=== PATIENT | female | born 1960 | race Caucasian/White ===

== ENCOUNTER → 2017-10-10 15:29 | Outpatient (CLI) | payer BC, SELFPAY ==
[2017-10-10 16:52] LABS: Anion Gap 9.8 mEq/L (5-15); Blood Urea Nitrogen 8 mg/dL (7-18); Carbon Dioxide 29 mmol/L (21.0-32.0); Chloride 107 mmol/L (98-107); Creatinine,Serum 0.85 mg/dL (0.55-1.02); Estimated Glomerular Filt Rate 69 ml/min (>60); GFR (African American) 83 ML/MIN (>60); Glucose 99 mg/dL (74-106); Potassium 3.8 mmoL/L (3.5-5.1); Sodium 142 mmol/L (136-145)
== END ==
PROVIDERS: Visit Provider Internal Medicine Cardiovascular Disease
DX: R60.9 Edema, unspecified (principal); G47.33 Obstructive sleep apnea (adult) (pediatric); I50.30 Unspecified diastolic (congestive) heart failure; I10 Essential (primary) hypertension; I25.10 Atherosclerotic heart disease of native coronary artery without angina pectoris; R00.0 Tachycardia, unspecified
CPT/HCPCS: 36415; 80048; 83880

== ENCOUNTER → 2017-10-14 10:01 | Outpatient (POV) | payer BC, SELFPAY | PROVIDERS: Visit Provider Nurse Practitioner Acute Care | DX: Z00.00 Encounter for general adult medical examination without abnormal findings (principal) ==

== ENCOUNTER → 2017-10-16 09:11 | Outpatient (CLI) | payer BC, SELFPAY ==
--- NOTE | 2017-10-16 | FL_ITS ---
EXAM: Barium swallow/esophagram. FL barium swallow modified: 10/16/2017 12:00 AM CLINICAL HISTORY: Dysphasia ORDERING PHYSICIAN: Ezio Castillo MD PATIENT AGE: 57 years COMPARISON: TECHNIQUE: Patient administered varying consistencies of barium contrast, while viewed in lateral position under real-time fluoroscopy with cine recording. FLUOROSCOPY TIME: 2 minutes and 18 seconds The study was performed in conjunction with speech pathologist. Please see that report & recommendations. FINDINGS: Patient was given varying consistencies of barium. This consisted of then liquid with cup and straw. Pureed, barium tablet, pudding, mixed. There was no evidence of vestibular penetration or tracheal aspiration. Small anterior osteophytes noted at C4-C5 and C6-C7 with some minimal indentation upon the posterior aspect of the esophagus. Patient did have a prominent gag reflex with the peel IMPRESSION: As above, no aspiration or penetration. Please see speech pathologist report and recommendations.
--- NOTE | 2017-10-16 09:21 | CT_ITS ---
CT chest wo con HISTORY: ITS.REASON: SHORTNESS OF BREATH,RECURRENT PNEUMONIA ORDERING PHYSICIAN: Ezio Castillo MD PATIENT AGE: 57 years TECHNIQUE: Axial images obtained. Sagittal and coronal reformatted images are also generated and reviewed. CONTRAST: None COMPARISON: 12/09/2015 FINDINGS: There is mild cardiomegaly with coronary artery calcification noted. No obvious pericardial effusion. Scattered small nodes are present within the mediastinum. No obvious mediastinal or hilar mass. There is a noncalcified 5 mm nodule in the right upper lobe laterally unchanged. 3 mm nodule also present in the right upper lobe probably unchanged. Patchy groundglass density is present in the left upper lobe medially nonspecific. No lobar consolidation or collapse. No central obstructing lesions. There is a calcified granuloma in the right lung base posteriorly and medially. Scattered small lymph nodes are present in the axilla. Upper abdominal images show no acute finding. No acute bony anomalies. IMPRESSION: 1. No acute finding. 2. Cardiomegaly. 3. Stable 5 and 3 mm right upper lobe nodules
--- NOTE | 2017-10-16 10:24 | MM_ITS ---
MM Dig screening mamm BI w/CAD CAD Screening ORDERING PHYSICIAN : Ezio Castillo MD PATIENT AGE: 57 years GENDER: Female COMPARISON: Previous mammograms: August 2016, September 2014, May 2010 INDICATION: Routine screening. Takes estradiol. Previous stereotactic biopsy left breast Family history. Grandmother with breast cancer TECHNIQUE: Standard CC and MLO images were obtained. R2 CAD reviewed. FINDINGS: Generalized fatty replacement yield Low-density breast. Which Facilitates mammography. No dominant mass nor suspicious calcifications in either breast. No architectural distortion RIGHT BREAST:. Stable with No areas of concern. LEFT BREAST:Metallic marker clip from previous stereotactic biopsy central left breast IMPRESSION: ........ Stable bilateral mammogram with no new areas of concern . routine follow-up BI-RADS Category: 1 Negative RECOMMENDED FOLLOW-UP: 1YR - 1 YEAR FOLLOW-UP (A letter has been sent to the patient regarding results of the study.)
[2017-10-16 14:11] VITALS: PULSE 52; PULSE 58
[2017-10-16 14:14] VITALS: BP 120/78; BP 130/84; PULSE 58; PULSE 76; RESP 18; RESP 24; O2SAT 88; O2SAT 93
== END ==
PROVIDERS: Visit Provider Internal Medicine
DX: Z12.31 Encounter for screening mammogram for malignant neoplasm of breast (principal); R06.02 Shortness of breath; J18.9 Pneumonia, unspecified organism; R13.10 Dysphagia, unspecified
CPT/HCPCS: 70371; 71250; 77067; 92611; 94060; 94618; 94640; 94727; 94729

== ENCOUNTER → 2017-10-16 12:21 | Outpatient (CLI) | payer BC, SELFPAY ==
[2017-10-16 13:52] LABS: Anion Gap 10.3 mEq/L (5-15); Blood Urea Nitrogen 10 mg/dL (7-18); Carbon Dioxide 27 mmol/L (21.0-32.0); Chloride 106 mmol/L (98-107); Creatinine,Serum 0.75 mg/dL (0.55-1.02); Estimated Glomerular Filt Rate 80 ml/min (>60); GFR (African American) 96 ML/MIN (>60); Glucose 97 mg/dL (74-106); Magnesium 1.9 mg/dL (1.4-2.2); Potassium 4.3 mmoL/L (3.5-5.1); Sodium 139 mmol/L (136-145)
== END ==
PROVIDERS: Internal Medicine; Visit Provider Physician Assistant
DX: I25.10 Atherosclerotic heart disease of native coronary artery without angina pectoris (principal); I50.30 Unspecified diastolic (congestive) heart failure; R06.02 Shortness of breath; R60.9 Edema, unspecified
CPT/HCPCS: 36415; 80048; 83735; 83880

== ENCOUNTER → 2017-10-29 07:34 | Outpatient (CLI) | payer BC, SELFPAY ==
[2017-10-29 08:50] LABS: Blood Urea Nitrogen 12 mg/dL (7-18); Carbon Dioxide 28 mmol/L (21.0-32.0); Chloride 107 mmol/L (98-107); Creatinine,Serum 1.22 mg/dL (0.55-1.02); Estimated Glomerular Filt Rate 45 ml/min (>60); GFR (African American) 55 ML/MIN (>60); Glucose 90 mg/dL (74-106); Magnesium 1.8 mg/dL (1.4-2.2); Sodium 143 mmol/L (136-145)
== END ==
PROVIDERS: PCP Physician Assistant; Visit Provider Physician Assistant
DX: R60.0 Localized edema (principal); G47.33 Obstructive sleep apnea (adult) (pediatric); I51.9 Heart disease, unspecified; I25.10 Atherosclerotic heart disease of native coronary artery without angina pectoris; I10 Essential (primary) hypertension; I50.30 Unspecified diastolic (congestive) heart failure
CPT/HCPCS: 80048; 83735; 83880

== ENCOUNTER → 2017-11-27 09:37 | Outpatient (CLI) | payer BC, SELFPAY ==
[2017-11-27 10:04] LABS: Anion Gap 9.4 mEq/L (5-15); Blood Urea Nitrogen 13 mg/dL (7-18); Carbon Dioxide 29 mmol/L (21.0-32.0); Chloride 104 mmol/L (98-107); Creatinine,Serum 1.12 mg/dL (0.55-1.02); Estimated Glomerular Filt Rate 50 ml/min (>60); GFR (African American) 61 ML/MIN (>60); Glucose 90 mg/dL (74-106); Potassium 3.4 mmoL/L (3.5-5.1); Sodium 139 mmol/L (136-145)
== END ==
PROVIDERS: Physician Assistant; Visit Provider Internal Medicine
DX: R60.0 Localized edema (principal); G47.33 Obstructive sleep apnea (adult) (pediatric); I51.9 Heart disease, unspecified; I25.10 Atherosclerotic heart disease of native coronary artery without angina pectoris; I10 Essential (primary) hypertension
CPT/HCPCS: 36415; 80048; 83880

== ENCOUNTER 2017-12-11 11:03 | Emergency (ER) | payer BC, SELFPAY ==
[2017-12-11 11:04] VITALS: BP 144/62; PULSE 69; RESP 20; TEMP 36.5; O2SAT 94; BMI 38.7
--- NOTE | 2017-12-11 11:19 | XR_ITS ---
XR chest 2V HISTORY: ITS.REASON: CHEST PAIN ORDERING PHYSICIAN: Adria Gillis MD PATIENT AGE: 57 years COMPARISON: 08/29/2017 FINDINGS: Mild cardiomegaly noted. There is interstitial thickening suggesting CHF with interstitial edema. Pulmonary vessels are not significantly engorged however. No effusions. No lobar consolidation or collapse. No acute bony anomalies. IMPRESSION: Cardiomegaly with prominence of the interstitium suggesting CHF
--- NOTE | 2017-12-11 11:21 | HMH.EDGENADL ---
ED Disposition Clinical Impression: CHF (congestive heart failure) Qualifiers: Heart failure type: diastolic Heart failure chronicity: acute on chronic Qualified Code(s): I50.33 - Acute on chronic diastolic (congestive) heart failure Disposition: Home, Self-Care Condition on Discharge: Good Instructions: DI for Atypical Chest Pain, DI for Heart Failure Additional Instructions: Increase Spironolactone to 50 mg a day for 3 days. Increase losartan to 50 mg twice a day. Follow-up with Dr. PHAM in the office next week as scheduled. Referrals: Zeke Chairez MD [Primary Care Provider] - - Critical Care Critical Care Time: No Attestation: On 12/11/17, the high probability of a clinically significant, sudden or life threatening deterioration of the following system(s) required my full and direct attention, intervention and personal management. The time I documented below is in addition to time spent performing reported procedures but includes the following listed in this critical care notation. Medical Decision Making - Adolph Inquiry Pt receiving controlled substance: No Vital Signs: 12/11/17 11:04 Temperature 97.7 F Temperature Source Oral Pulse Rate [Right Brachial] 69 Respiratory Rate 20 Blood Pressure [Right Arm] 144/62 Blood Pressure Mean [Right Arm] 89 Blood Pressure Source [Right Arm] Automatic Cuff Blood Pressure Position [Right Arm] Sitting 02 Sat by Pulse Oximetry 94 L Oxygen Delivery Method Room Air - Lab Data Lab Results 12/11/17 11:15: WBC 5.8, RBC 3.31 L, Hgb 10.1 L, Hct 32.0 L, MCV 96.8, MCH 30.5, MCHC 31.5 L, RDW 14.3, Plt Count 318, MPV 8.4, Neut % (Auto) 68.2, Lymph % (Auto) 24.8, [place] % (Auto) 4.0, Eos % (Auto) 2.6, Baso % (Auto) 0.4, Neut # (Auto) 4.0, Lymph # (Auto) 1.5, [place] # (Auto) 0.2, Eos # (Auto) 0.2, Baso # (Auto) 0.0 12/11/17 11:15: Sodium 140, Potassium 3.5, Chloride 104, Carbon Dioxide 27, Anion Gap 12.5, BUN 9, Creatinine 0.90, Estimated Creat Clear 112, Estimated GFR 65, Est GFR ( Amer) 78, Glucose 100, Calcium 8.4 L, Total Bilirubin 0.2, AST 24, ALT 26, Alkaline Phosphatase 88, Total Creatine Kinase 76, CK-MB (CK-2) 2.4, CK-MB (CK-2) Rel Index 3.2, Troponin I < 0.02, Total Protein 7.2, Albumin 3.2 L, Globulin 4.0 H, Albumin/Globulin Ratio 0.8 L 12/11/17 11:15: B-Natriuretic Peptide 394 H Result diagrams: 12/11/17 11:15 12/11/17 11:15 Orders (Tests/Meds): ED MEDICATIONS Discontinued Medications Generic Name Dose Route Start Last Admin Trade Name Freq PRN Reason Stop Dose Admin Aspirin 324 mg 12/11/17 11:19 12/11/17 11:23 Aspirin 81mg Chewable Tablet PO 12/11/17 11:20 324 mg ONCE ONE Administration Furosemide 80 mg 12/11/17 12:44 12/11/17 13:28 Lasix 40mg/4ml Vial IV 12/11/17 12:45 80 mg ONCE ONE Administration Ibuprofen 800 mg 12/11/17 12:41 12/11/17 13:27 Motrin 400mg Tablet PO 12/11/17 12:42 800 mg ONCE ONE Administration ORDERS Category Date Time Status ECG Request by /Maggi Stat Y 12/11/17 11:19 Stop Req - ECG Data Tracing #1 EKG interpreted by Adria Gillis MD: Rhythm: sinus Rate: 60 [place]: normal Ectopy: none Conduction: normal ST Segment Changes: none T Wave Changes: none Q Waves: none No evidence of acute ischemia or injury Normal electrocardiogram Medical Decision Narrative: 12:45 PM: Discussed with ALECIA Andrade, for Dr. Gore. He will see the patient in the emergency department. 3:28 PM: Patient seen by ALECIA Andrade, for Dr. Gore, and then reevaluated by him. The patient will be discharged his recommendation. He rents increasing around lactone to 50 mg per day for 3 days and increasing losartan to twice a day and follow-up next week as already scheduled. General Adult HPI - General Chief complaint: Chest Pain Stated complaint: CHEST PAIN Time Seen by Provider: 12/11/17 15:30 Mode of Arrival: Family Vehicle Limitations: No Limitations Description of
[2017-12-11 11:42] LABS: Basophils % 0.4 % (0.1-2.0); Eosinophils # 0.2 K/mm3 (0.0-0.4); Eosinophils % 2.6 % (0.1-12.0); Hemoglobin 10.1 g/dL (12.2-16.2); Lymphocytes # 1.5 K/mm3 (0.7-4.5); Lymphocytes % 24.8 K/mm3 (10-50); Mean Corpuscular HGB Conc 31.5 g/dL (31.8-35.4); Mean Corpuscular Hemoglobin 30.5 pg (27.0-31.2); Mean Corpuscular Volume 96.8 fl (81-99); Mean Platelet Volume 8.4 fl (7.4-10.4); Monocytes # 0.2 K/mm3 (0.1-1.0); Neutrophils % 68.2 % (37.0-80.0); Platelet Count 318 K/mm3 (142-424); Red Blood Count 3.31 M/mm3 (4.20-5.40); Red Cell Distribution Width 14.3 % (11.5-17.5); White Blood Count 5.8 K/mm3 (4.8-10.8)
[2017-12-11 12:00] LABS: Alanine Aminotransferase 26 U/L (12-78); Albumin Level 3.2 gm/dL (3.4-5.0); Albumin/Globulin Ratio 0.8 (1.1-1.8); Alkaline Phosphatase 88 U/L (46-116); Aspartate Amino Transferase 24 U/L (15-37); Bilirubin,Total 0.2 mg/dL (0.2-1.0); Blood Urea Nitrogen 9 mg/dL (7-18); CKMB Relative Index 3.2 U/L (0-4.0); Calcium 8.4 mg/dL (8.5-10.1); Carbon Dioxide 27 mmol/L (21.0-32.0); Creatine Kinase 76 U/L (26-192); Creatine Kinase MB 2.4 mg/ml (0.0-3.6); Creatinine Clearance Estimated 112 mL/min (0-300); Estimated Glomerular Filt Rate 65 ml/min (>60); GFR (African American) 78 ML/MIN (>60); Glucose 100 mg/dL (74-106); Total Protein,Serum 7.2 gm/dL (6.4-8.2); Troponin I < 0.02 ng/ml (0.00-0.06)
[2017-12-11 12:07] LABS: Chloride 104 mmol/L (98-107); Potassium 3.5 mmoL/L (3.5-5.1); Sodium 140 mmol/L (136-145)
[2017-12-11 13:03] LABS: Anion Gap 12.5 mEq/L (5-15)
--- NOTE | 2017-12-11 15:29 | HMH.CNCARD ---
History of Present Illness Consult date: 12/11/17 Consult reason: congestive heart failure, shortness of breath Chief complaint: SOA, Weight gain, edema Additional Medical History:: 1. Tobacco use since age 25, 1 ppd at least 2. IBS, diarrhea predominant, followed by GI 3. Chronic pancreatitis, previous workup by GI 4. HTN, treated for 5 yrs 5. Status post cholecystectomy, hysterectomy due to endometriosis and pelvic inflammatory disease 6. Chronic back pain with chronic pain medication 7. Hypothyroidism 8. Congestive heart failure, 05/2017 A. Right and left heart catheterization, 06/12/17, mild nonocclusive coronary artery disease. Mild pulmonary hypertension. No evidence of intra-cardiopulmonary shunt. Congestive heart failure felt secondary to diastolic dysfunction with improvement after 6 L diuresis overnight. History of present illness: 57-year-old white female with history of hypertension, obesity and diastolic dysfunction was seen in the emergency department today for increasing shortness of breath/chest tightness and weight gain along with lower extremity edema over the last several days. She has noted a decrease in her urine output despite taking 80 mg of Lasix daily along with 25 mg of spironolactone. She denies increase in fluids, soda use, ibuprofen or fast food intake. Evaluation in the emergency department revealed mildly elevated BNP at 158 but with chest x-ray evidence of congestive heart failure. Patient was given 80 of Lasix IV and cardiology consulted for evaluation. This is a similar situation that she was hospitalized for in May of last year which responded well to a single IV dose of Lasix. After evaluation, the patient diuresed over 800 mL and 2 hours and was noted to be less short of breath although somewhat tired. [facility] History Medical History: Reports:: Congestive Heart Failure, Coronary Artery Disease, Hypertension Denies:: Cancer, Diabetes Mellitus Type 1, Diabetes Mellitus Type 2, Internal Pacemaker, MRSA Other Medical History: Reports: Thyroid Disease Laterality Cases: Bilateral: Tonsillectomy Other Surgeries: Yes: Angioplasty, Colonoscopy, Hysterectomy-Total, Other. No: Pacemaker Amputation: No Fractures: No - *Social History Smoking Status: Former smoker Tobacco Type: cigarettes Alcohol Intake: never Alcohol Intake Frequency:: other Substance Use Type: denies use - Psychiatric History Expresses thoughts of harming self/others: None Suicide Plan Description: No Plan *Family Hx:: Heart Attack, Coronary Artery Disease, Hypertension, Cancer, Stroke Meds Home Medications Medication Instructions Recorded Confirmed Type albuterol sulfate HFA 90 1 puff INHALATION Q6H 10/09/17 History mcg/actuation aerosol inhaler aspirin 81 mg tablet,delayed 81 mg PO QDAY 10/09/17 History release bupropion HCl SR 150 mg tablet,12 150 mg PO BID 10/09/17 History hr sustained-release buspirone 10 mg tablet 10 mg PO BID 10/09/17 History estradiol 1 mg tablet 1 mg PO QDAY 10/09/17 History furosemide 40 mg tablet 40 mg PO BID tab 10/09/17 History hyoscyamine 0.125 mg sublingual 0.125 mg SUBLINGUAL QDAY PRN tab 10/09/17 History tablet levothyroxine 75 mcg tablet 75 mcg PO QDAY tab 10/09/17 History losartan 50 mg tablet 50 mg PO QDAY 10/09/17 History metoclopramide 5 mg tablet 5 mg PO QID 10/09/17 History metoprolol succinate ER 25 mg 25 mg PO QDAY 10/09/17 History tablet,extended release 24 hr omeprazole 40 mg capsule,delayed 40 mg PO QDAY 10/09/17 History release trazodone 50 mg tablet 50 mg PO QHS PRN 10/09/17 History buprenorphine 8 mg-naloxone 2 mg 1 tab SUBLINGUAL QDAY 10/16/17 History sublingual tablet dicyclomine 10 mg capsule 10 mg PO Q8H 10/16/17 History ondansetron HCl 4 mg tablet 8 mg PO Q4H PRN tab 10/16/17 History spironolactone 25 mg tablet 50 mg PO QDAY tab 10/18/17 History Allergies Allergy/AdvReac Type Severity Reaction Status Date / Time [facility]
[2017-12-11 15:53] VITALS: BP 135/81; PULSE 41; RESP 20; TEMP 36.6; O2SAT 99
== END 2017-12-11 15:55 | disposition home or self-care (01) ==
PROVIDERS: Emergency Provider Emergency Medicine; PCP Emergency Medicine
DX: R07.9 Chest pain, unspecified (principal); I50.33 Acute on chronic diastolic (congestive) heart failure; I25.10 Atherosclerotic heart disease of native coronary artery without angina pectoris; I10 Essential (primary) hypertension; Z88.1 Allergy status to other antibiotic agents; Z88.0 Allergy status to penicillin; Z88.2 Allergy status to sulfonamides; Z87.891 Personal history of nicotine dependence; Z79.82 Long term (current) use of aspirin; Z79.899 Other long term (current) drug therapy
CPT/HCPCS: 71046; 80053; 82550; 82553; 83880; 84484; 85025; 93005; 93041; 96374; 99282

== ENCOUNTER → 2017-12-19 11:45 | Outpatient (CLI) | payer BC, SELFPAY ==
[2017-12-19 12:21] LABS: Anion Gap 10.4 mEq/L (5-15); Blood Urea Nitrogen 16 mg/dL (7-18); Carbon Dioxide 35 mmol/L (21.0-32.0); Chloride 98 mmol/L (98-107); Creatinine,Serum 0.94 mg/dL (0.55-1.02); Estimated Glomerular Filt Rate 61 ml/min (>60); GFR (African American) 74 ML/MIN (>60); Glucose 112 mg/dL (74-106); Potassium 3.4 mmoL/L (3.5-5.1); Sodium 140 mmol/L (136-145)
== END ==
PROVIDERS: Visit Provider Internal Medicine
DX: I50.9 Heart failure, unspecified (principal); I10 Essential (primary) hypertension; I50.30 Unspecified diastolic (congestive) heart failure; R60.0 Localized edema; G47.33 Obstructive sleep apnea (adult) (pediatric)
CPT/HCPCS: 36415; 80048

== ENCOUNTER 2018-01-11 21:31 | Inpatient (IN) ==
[2018-01-11 22:25] LABS: Basophils % 0.1 % (0.1-2.0); Eosinophils # 0.1 K/mm3 (0.0-0.4); Eosinophils % 0.4 % (0.1-12.0); Hematocrit 32.4 % (37.0-47.0); Hemoglobin 10.2 g/dL (12.2-16.2); Lymphocytes # 1.1 K/mm3 (0.7-4.5); Lymphocytes % 4.8 K/mm3 (10-50); Mean Corpuscular HGB Conc 31.4 g/dL (31.8-35.4); Mean Corpuscular Hemoglobin 29.8 pg (27.0-31.2); Mean Corpuscular Volume 94.9 fl (81-99); Mean Platelet Volume 7.9 fl (7.4-10.4); Monocytes % 4.1 % (1.7-9.3); Neutrophils # 20.9 K/mm3 (1.8-7.8); Neutrophils % 90.5 % (37.0-80.0); Platelet Count 419 K/mm3 (142-424); Red Blood Count 3.41 M/mm3 (4.20-5.40); Red Cell Distribution Width 14.7 % (11.5-17.5)
[2018-01-11 22:30] LABS: White Blood Count 23.1 K/mm3 (4.8-10.8)
[2018-01-11 22:47] LABS: Creatine Kinase 169 U/L (26-192)
[2018-01-11 22:52] LABS: Albumin/Globulin Ratio 0.7 (1.1-1.8); Bilirubin,Total 0.8 mg/dL (0.2-1.0); Calcium 9.3 mg/dL (8.5-10.1); Globulin 4.4 gm/dl (1.3-3.2); Total Protein,Serum 7.4 gm/dL (6.4-8.2)
--- NOTE | 2018-01-11 22:52 | Emergency Department Note ---
ED Disposition Clinical Impression: Hypoxia CAP (community acquired pneumonia) Qualifiers: Laterality: unspecified laterality Qualified Code(s): J18.9 - Pneumonia, unspecified organism Disposition: Still a Patient Condition on Discharge: Fair - Critical Care Critical Care Time: No Attestation: On 01/11/18, the high probability of a clinically significant, sudden or life threatening deterioration of the following system(s) required my full and direct attention, intervention and personal management. The time I documented below is in addition to time spent performing reported procedures but includes the following listed in this critical care notation. Medical Decision Making - Adolph Inquiry Pt receiving controlled substance: No Vital Signs: 01/11/18 21:32 01/11/18 21:39 01/11/18 23:33 Temperature 100 F H Temperature Source Oral Pulse Rate [Right Brachial] 105 H 80 Respiratory Rate 18 18 Blood Pressure [Right Arm] 120/70 124/63 Blood Pressure Mean [Right Arm] 86 83 02 Sat by Pulse Oximetry 94 L 90 L 92 L Oxygen Delivery Method Room Air Room Air Nasal Cannula Oxygen Flow Rate (LPM) 2 3 - Lab Data Lab Results 01/11/18 21:50: Influenza Type A Ag Negative, Influenza Type B Ag Negative 01/11/18 21:50: Lactic Acid 2.2 H 01/11/18 21:55: Total Creatine Kinase 169, CK-MB (CK-2) 3.6 D, CK-MB (CK-2) Rel Index 2.1, Troponin I < 0.02 01/11/18 21:55: WBC 23.1 H*, RBC 3.41 L, Hgb 10.2 L, Hct 32.4 L, MCV 94.9, MCH 29.8, MCHC 31.4 L, RDW 14.7, Plt Count 419, MPV 7.9, Neut % (Auto) 90.5 H, Lymph % (Auto) 4.8 L, [place] % (Auto) 4.1, Eos % (Auto) 0.4, Baso % (Auto) 0.1, Neut # (Auto) 20.9 H, Lymph # (Auto) 1.1, [place] # (Auto) 1.0, Eos # (Auto) 0.1, Baso # (Auto) 0.0, Total Counted 100, Neutrophils % (Manual) 83 H, Band Neutrophils % 9.0 H, Lymphocytes % (Manual) 8 L, Platelet Estimate Normal, Polychromasia 1+, Hypochromasia 1+, Macrocytosis 1+ 01/11/18 21:55: Sodium 140, Potassium 3.0 L, Chloride 104, Carbon Dioxide 25, Anion Gap 14.0, BUN 13, Creatinine 1.09 H, Estimated Creat Clear 96, Estimated GFR 52 L, Est GFR ( Amer) 63, Glucose 142 H, Calcium 9.3, Total Bilirubin 0.8, AST 100 H, ALT 61, Alkaline Phosphatase 162 H, Total Protein 7.4 , Albumin 3.0 L, Globulin 4.4 H, Albumin/Globulin Ratio 0.7 L 01/11/18 21:55: B-Natriuretic Peptide 174 H Result diagrams: 01/11/18 21:55 01/11/18 21:55 Orders (Tests/Meds): ED MEDICATIONS Generic Name Dose Route Start Last Admin Trade Name Freq PRN Reason Stop Dose Admin Levofloxacin/Dextrose 750 mg in 150 mls @ 100 mls/hr 01/11/18 23:30 01/11/18 23:39 Levofloxacin 750mg/150ml Premix IV 01/25/18 23:29 100 mls/hr Q24H LEN Administration Protocol Discontinued Medications Generic Name Dose Route Start Last Admin Trade Name Freq PRN Reason Stop Dose Admin Acetaminophen 650 mg 01/11/18 23:06 01/11/18 23:11 Acetaminophen 325mg Tab PO 01/11/18 23:07 650 mg ONCE ONE Administration Potassium Chloride 60 meq 01/11/18 22:54 01/11/18 23:11 Klor-Con 20meq Tablet PO 01/11/18 22:55 60 meq ONCE ONE Administration ORDERS Category Date Time Status Chest XR 2 view (NOT portable) [XR chest 2V] Stat Exams 01/11/18 22:35 Taken Upper Respiratory Panel, PCR Stat Lab 01/11/18 22:42 Ordered Blood Culture Stat Micro 01/11/18 21:55 Received 12-lead EKG Request [ECG Request by /Maggi] Stat Y 01/11/18 21:52 Ordered - Radiology Data #1 Image(s): Chest Image Reviewed: Yes I reviewed the patient's radiology image Bilateral patchy airspace disease - ECG Data Tracing #1 EKG interpreted by Adria Gillis MD: Rhythm: sinus Rate: 99 [place]: normal Ectopy: none Conduction: normal ST Segment Changes: Nonspecific T Wave Changes: Nonspecific Q Waves: Inferior No evidence of acute ischemia or injury Prior electrocardiagrams reviewed. No change from prior tracings. Medical Decision Narrative: 11:15 PM: I have discussed the case with Dr. Khan for Dr. Chairez who agrees to admit the patient to the hospital. We discussed the patient's clinical information, including history, exam, laboratory and radiology results and ED course. Per hospital procedure, I will write temporary bridge inpatient orders on the patient. Specific orders requested by the admitting physician: The patient has numerous antibiotic allergies and sensitivities. We discussed all of her reactions. He feels the best choices Levaquin. She reportedly has hallucinations to this but not an actual allergic reaction. I discussed this with the patient and she is agreeable. Continue current medications. Do not diurese or administer fluids at this point. General Adult HPI - General Chief complaint: Shortness of Breath/Dyspnea Stated complaint: sob Time Seen by Provider: 01/11/18 22:51 Mode of Arrival: Ambulatory Limitations: No Limitations Description of Symptoms (Recalled from ER Triage Doc. by RN): SOA, 6LB weight gain over night,and pain with deep breathing, overall weak - History of Present Illness HPI narrative: The patient says she has not felt well all week. She has increasing shortness of breath and dyspnea on exertion. She has a cough producing yellow sputum. She has increased swelling and weight gain of 6 pounds. She has decreased urination. History of congestive heart failure. Currently her father is in the emergency room with pneumonia. - Related Data Home Medications Medication Instructions Recorded Confirmed albuterol sulfate HFA 90 1 puff INHALATION Q6H 10/09/17 01/11/18 mcg/actuation aerosol inhaler aspirin 81 mg tablet,delayed 81 mg PO QDAY 10/09/17 01/11/18 release estradiol 1 mg tablet 1 mg PO QDAY 10/09/17 01/11/18 furosemide 40 mg tablet 40 mg PO BID tab 10/09/17 01/11/18 hyoscyamine 0.125 mg sublingual 0.125 mg SUBLINGUAL QDAY PRN tab 10/09/17 tablet levothyroxine 75 mcg tablet 75 mcg PO QDAY tab 10/09/17 losartan 50 mg tablet 50 mg PO QDAY 10/09/17 01/11/18 metoclopramide 5 mg tablet 5 mg PO QID 10/09/17 01/11/18 omeprazole 40 mg capsule,delayed 40 mg PO QDAY 10/09/17 01/11/18 release trazodone 50 mg tablet 50 mg PO QHS PRN 10/09/17 01/11/18 dicyclomine 10 mg capsule 10 mg PO Q8H 10/16/17 ondansetron HCl 4 mg tablet 8 mg PO Q4H PRN tab 10/16/17 01/11/18 Gabapentin [Neurontin 600mg 600 mg PO QID 01/11/18 01/11/18 tablet] Metoprolol Succinate 25 mg PO DAILY 01/11/18 01/11/18 Potassium Chloride [Micro-K 10mEq 10 meq PO DAILY 01/11/18 01/11/18 cap] Spironolactone [Aldactone 50mg Tab] 50 mg PO QDAY 01/11/18 01/11/18 metOLazone [Metolazone 5mg Tab] 2.5 mg PO QDAY 01/11/18 01/11/18 Previous Rx's Medication Instructions Recorded meclizine 12.5 mg tablet 12.5 mg PO QHS PRN #14 tab 12/05/17 Allergies Allergy/AdvReac Type Severity Reaction Status Date / Time azithromycin [From ZITHROMAX] Allergy Unknown SEVERE Verified 11/15/17 12:48 DIARRHEA/VOMITING erythromycin base Allergy Unknown Verified 11/15/17 12:48 [ERYTHROMYCIN BASE] levofloxacin [From LEVAQUIN] Allergy Unknown HALLUCINATI Verified 11/15/17 12:48 ONS minocycline [MINOCYCLINE] Allergy Unknown SEVER Verified 11/15/17 12:48 DIARRHEA/VOMITING Penicillins [PENICILLINS] Allergy Unknown HAM BAUTISTA Verified 11/15/17 12:48 Sulfa (Sulfonamide Allergy Unknown I-HIVES Verified 11/15/17 12:48 Antibiotics) [SULFA (SULFONAMIDE ANTIBIOTICS)] Cephalosporins Allergy Mild TROUBLE Uncoded 10/16/17 11:57 BREATHING [facility] History I have reviewed the patient's past medical history: Yes Medical History: Reports:: Congestive Heart Failure, Coronary Artery Disease, Hypertension Denies:: Cancer, Diabetes Mellitus Type 1, Diabetes Mellitus Type 2, Internal Pacemaker, MRSA Other Medical History: Reports: Thyroid Disease Comment: IBS,anxiety,buldging disk Laterality Cases: Bilateral: Tonsillectomy Other Surgeries: Yes: Angioplasty, Colonoscopy, Hysterectomy-Total, Other. No: Pacemaker Amputation: No Fractures: No - Social History Smoking Status: Current every day smoker Tobacco Type: cigarettes Alcohol Intake: never Alcohol Intake Frequency:: other Substance Use Type: denies use - Psychiatric History Expresses thoughts of harming self/others: None Suicide Plan Description: No Plan Family Hx:: Heart Attack, Coronary Artery Disease, Hypertension, Cancer, Stroke ROS Obtained: Yes All systems reviewed & no additional complaints - Constitutional Constitutional: Reports fever(s), Reports weight gain - ENT Ears, Nose, Mouth, and Throat: Denies sore throat - Cardiovascular Cardiovascular: Reports chest pain, Reports leg edema - Respiratory Respiratory: Yes cough, Yes dyspnea, No coughing up blood Physical Exam - General General appearance: alert, in no apparent distress - Head Head exam: atraumatic, normocephalic, normal inspection - Eye Eye exam: Present: normal appearance, PERRL, EOMI - ENT ENT exam: Present: normal exam, normal oropharynx, mucous membranes moist, TM's normal bilaterally, normal external ear exam - Neck Neck exam: Present: normal inspection, full ROM, trachea midline. Absent: meningismus, lymphadenopathy - Chest Chest inspection: Present: normal inspection, symmetric chest wall rise. Absent : tenderness - Respiratory Respiratory exam: Present: normal lung sounds bilaterally. Absent: respiratory distress - Cardiovascular Cardiovascular exam: Present: regular rate, normal rhythm. Absent: JVD - Abdominal Exam Abdominal exam: Present: soft, normal bowel sounds. Absent: distention, tenderness, guarding - Extremities Exam Extremities exam: Present: normal inspection, full ROM, normal capillary refill , pedal edema (2+ pitting edema of legs). Absent: calf tenderness - Back Exam Back exam: Present: normal inspection. Absent: tenderness - Neurological Exam Neurological exam: Present: alert, oriented X3 - Psychiatric Psychiatric exam: Present: normal affect, normal mood - Skin Skin exam: Present: warm, dry, intact, normal color - Lymphatic Lymphatic Findings: no adenopathy
[2018-01-11 22:57] LABS: Microscopic, Urine URINE MICROSCOPIC (MICROSCOPIC)
[2018-01-11 22:59] LABS: Appearance,Urine CLEAR (Clear); Bilirubin,Urine Negative (Negative); Blood, Urine Negative (Negative); Color,Urine YELLOW (Yellow); Glucose,Urine (UA) Negative (Negative); Ketones,Urine Negative (Negative); Leukocyte Esterase,Urine Negative (Negative); Protein,Urine Negative (Negative); Urobilinogen,Urine 0.2 EU/dl (0.2)
[2018-01-11 23:03] LABS: Amorphous Sediment,Urine Trace /lpf
[2018-01-11 23:07] LABS: Lymphocytes % 8 % (10-50); Neutrophils % 83 % (42-76); Total Cells Counted 100
[2018-01-11 23:08] LABS: Hypochromasia 1+; Macrocytosis 1+; Polychromasia 1+
[2018-01-12 06:49] LABS: Basophils % 0.2 % (0.1-2.0); Eosinophils # 0.2 K/mm3 (0.0-0.4); Hematocrit 33.2 % (37.0-47.0); Hemoglobin 10.5 g/dL (12.2-16.2); Lymphocytes # 1.9 K/mm3 (0.7-4.5); Lymphocytes % 9.6 K/mm3 (10-50); Mean Corpuscular HGB Conc 31.7 g/dL (31.8-35.4); Mean Corpuscular Hemoglobin 30.2 pg (27.0-31.2); Mean Corpuscular Volume 95.4 fl (81-99); Mean Platelet Volume 8.1 fl (7.4-10.4); Monocytes # 0.8 K/mm3 (0.1-1.0); Monocytes % 3.9 % (1.7-9.3); Neutrophils % 85.3 % (37.0-80.0); Platelet Count 417 K/mm3 (142-424); Red Blood Count 3.48 M/mm3 (4.20-5.40); Red Cell Distribution Width 14.5 % (11.5-17.5)
[2018-01-12 07:26] LABS: Anion Gap 13.4 mEq/L (5-15); Potassium 3.4 mmoL/L (3.5-5.1)
[2018-01-12 07:28] LABS: Hypochromasia 1+; Lymphocytes % 13 % (10-50); Monocytes % 3 % (2-9); Neutrophils % 77 % (42-76); Polychromasia 1+; Rouleaux 2+; Total Cells Counted 100
--- NOTE | 2018-01-12 10:11 | Pharmacy Consult Notes ---
[facility] Pharmacy VTE Monitoring - Patient Demographics Admission date: 01/11/18 Report Date: 01/12/18 Time: 10:11 Allergies/Adverse Reactions: Patient Allergies azithromycin [From ZITHROMAX] Allergy (Unknown, Verified 11/15/17 12:48) SEVERE DIARRHEA/VOMITING erythromycin base [ERYTHROMYCIN BASE] Allergy (Unknown, Verified 11/15/17 12:48) levofloxacin [From LEVAQUIN] Allergy (Unknown, Verified 11/15/17 12:48) HALLUCINATIONS minocycline [MINOCYCLINE] Allergy (Unknown, Verified 11/15/17 12:48) SEVER DIARRHEA/VOMITING Penicillins [PENICILLINS] Allergy (Unknown, Verified 11/15/17 12:48) HAM BAUTISTA Sulfa (Sulfonamide Antibiotics) [SULFA (SULFONAMIDE ANTIBIOTICS)] Allergy ( Unknown, Verified 11/15/17 12:48) I-HIVES Cephalosporins Allergy (Mild, Uncoded 10/16/17 11:57) TROUBLE BREATHING Height: 1.63 m Weight: 99.79 kg Patient Problems: Current Active Problems CAP (community acquired pneumonia) (Acute) Hypoxia (Acute) - VTE Risk Labs: VTE Related Lab Results Hgb 10.5 g/dL (12.2-16.2) L 01/12/18 06:10 Hct 33.2 % (37.0-47.0) L 01/12/18 06:10 Plt Count 417 K/mm3 (142-424) 01/12/18 06:10 BUN 10 mg/dL (7-18) 01/12/18 06:10 Creatinine 0.86 mg/dL (0.55-1.02) D 01/12/18 06:10 Estimated Creat Clear 114 mL/min (0-300) 01/12/18 06:10 VTE Score: 10 VTE Risk Level: Moderate Risk - Prophylaxis VTE Prophylaxis Ordered?: Yes Types of VTE Prophylaxis: TEDS Knee High Location of Applied Device: Bilateral Lower Extremeties - VTE Diagnosis Confirmed Treatment or plan recommended: Continue Current Treatment
--- NOTE | 2018-01-12 11:22 | History & Physical Report ---
*Admission Date: 01/11/18 *Chief complaint: sob *History of present illness: 57-year-old female presented to the ER with complaints of says she has not felt well all week. She has increasing shortness of breath and dyspnea on exertion. a cough producing yellow sputum. She has increased edema and weight gain of 6 pounds. She has decreased urination. History of congestive heart failure. Last echo per patient was 4-5 months ago patient is a smoker. Patient admitted for pneumonia and mild CHF. Will have cardiology consult and continue antibiotics [facility] History I have reviewed the patient's past medical history: Yes Medical History: Reports:: Congestive Heart Failure, Coronary Artery Disease, Hypertension, MRSA Denies:: Cancer, Diabetes Mellitus Type 1, Diabetes Mellitus Type 2, Internal Pacemaker Other Medical History: Reports: Thyroid Disease Laterality Cases: Bilateral: Tonsillectomy Other Surgeries: Yes: Angioplasty, Cholecystectomy, Colonoscopy, Dilation and Curettage, Hysterectomy-Total, Other. No: Pacemaker Amputation: No Fractures: No - *Social History Educational Level: Completed College Smoking Status: Current every day smoker Tobacco Type: cigarettes Alcohol Intake: former Alcohol Intake Frequency:: other Substance Use Type: denies use Occupational Status: employed Household Members: family - Psychiatric History Expresses thoughts of harming self/others: None Suicide Plan Description: No Plan *Family Hx:: Heart Attack, Coronary Artery Disease, Hypertension, Cancer, Stroke Review of Systems - Constitutional Reports body ache(s), Reports chills, Reports weakness, Reports weight gain - Eyes Denies change in vision - ENT Denies change in voice - *Cardiovascular Reports shortness of breath, Denies chest pain at rest - *Respiratory Reports change in phlegm color, Reports chest congestion, Reports cough, Reports shortness of breath, Reports shortness of breath with activity, Reports excessive phlegm production - *Gastrointestinal Denies change in bowel habits - *Genitourinary Reports other, Denies absent period, Denies difficulty starting urination - *Musculoskeletal Reports body aches, Denies decreased muscle mass - Integumentary/Breasts Denies change in hair - *Neurologic Denies abnormal movements - Psychiatric Denies anxiety, Denies panic attacks - Endocrine Denies heat intolerance - Hematologic/Lymphatic Denies enlarged lymph nodes - Allergic/Immunologic Denies lip swelling Meds Home Medications Medication Instructions Recorded Confirmed Type aspirin 81 mg tablet,delayed 81 mg PO DAILY 10/09/17 01/12/18 History release estradiol 1 mg tablet 1 mg PO DAILY 10/09/17 01/12/18 History furosemide 40 mg tablet 40 mg PO BID tab 10/09/17 01/11/18 History hyoscyamine 0.125 mg sublingual 0.125 mg SUBLINGUAL DAILYP PRN tab 10/09/17 History tablet levothyroxine 75 mcg tablet 75 mcg PO DAILY tab 10/09/17 01/12/18 History losartan 50 mg tablet 50 mg PO DAILY 10/09/17 01/12/18 History metoclopramide 5 mg tablet 5 mg PO QID 10/09/17 01/12/18 History omeprazole 40 mg capsule,delayed 40 mg PO DAILY 10/09/17 01/12/18 History release trazodone 50 mg tablet 50 mg PO HSP PRN 10/09/17 01/12/18 History dicyclomine 10 mg capsule 10 mg PO NEEDED PRN 10/16/17 01/12/18 History ondansetron HCl 4 mg tablet 8 mg PO Q4HP PRN tab 10/16/17 01/12/18 History Gabapentin [Neurontin 600mg 600 mg PO QID 01/11/18 01/11/18 History tablet] Metoprolol Succinate 25 mg PO DAILY 01/11/18 01/11/18 History Potassium Chloride [Micro-K 10mEq 10 meq PO DAILY 01/11/18 01/12/18 History cap] Spironolactone [Aldactone 50mg Tab] 50 mg PO DAILY 01/11/18 01/12/18 History metOLazone [Metolazone 5mg Tab] 2.5 mg PO DAILY 01/11/18 01/12/18 History Allergies Allergy/AdvReac Type Severity Reaction Status Date / Time azithromycin [From ZITHROMAX] Allergy Unknown SEVERE Verified 11/15/17 12:48 DIARRHEA/VOMITING erythromycin base Allergy Unknown Verified 11/15/17 12:48 [ERYTHROMYCIN BASE] levofloxacin [From LEVAQUIN] Allergy Unknown HALLUCINATI Verified 11/15/17 12:48 ONS minocycline [MINOCYCLINE] Allergy Unknown SEVER Verified 11/15/17 12:48 DIARRHEA/VOMITING Penicillins [PENICILLINS] Allergy Unknown HAM BAUTISTA Verified 11/15/17 12:48 Sulfa (Sulfonamide Allergy Unknown I-HIVES Verified 11/15/17 12:48 Antibiotics) [SULFA (SULFONAMIDE ANTIBIOTICS)] Cephalosporins Allergy Mild TROUBLE Uncoded 10/16/17 11:57 BREATHING Exam Vital signs and Labs for Last 24 Hours: Temp Pulse Resp BP Pulse Ox 98.8 F 83 20 115/51 92 L 01/12/18 07:43 01/12/18 07:43 01/12/18 07:43 01/12/18 07:43 01/12/18 07:43 Laboratory Results - last 24 hr 01/12/18 02:05: Lactic Acid Fup @ 4Hr 1.2 01/12/18 06:10: WBC 20.0 H, RBC 3.48 L, Hgb 10.5 L, Hct 33.2 L, MCV 95.4, MCH 30.2, MCHC 31.7 L, RDW 14.5, Plt Count 417, MPV 8.1, Neut % (Auto) 85.3 H, Lymph % (Auto) 9.6 L, Hand % (Auto) 3.9, Eos % (Auto) 1.0, Baso % (Auto) 0.2, Neut # (Auto) 17.0 H, Lymph # (Auto) 1.9, Hand # (Auto) 0.8, Eos # (Auto) 0.2, Baso # (Auto) 0.0, Total Counted 100, Neutrophils % (Manual) 77 H, Band Neutrophils % 7.0, Lymphocytes % (Manual) 13, Monocytes % (Manual) 3, Platelet Estimate Normal, Polychromasia 1+, Hypochromasia 1+, Poikilocytosis 1+, Rouleaux 2+ 01/12/18 06:10: Sodium 140, Potassium 3.4 L, Chloride 102, Carbon Dioxide 28, Anion Gap 13.4, BUN 10, Creatinine 0.86 D, Estimated Creat Clear 114, Estimated GFR 68, Est GFR ( Amer) 82 D, Glucose 95 D I & O for Last 24 hours: Intake & Output 01/09/18 01/10/18 01/11/18 01/12/18 11:59 11:59 11:59 11:59 Intake Total 720 / 720 Output Total 700 / 700 Balance Weight 220 lb Microbiology Reports for the Last 24 Hours: Microbiology 01/12/18 00:40 Sputum - Expectorated Sputum Gram Stain - Final - Constitutional no acute distress - *Routine HEENT Exam Head: Present: normocephalic Eye: Present: PERRL ENT: Present: mucous membranes moist - *Routine Neck Exam Present: supple, full ROM - *Routine Respiratory Exam Present: wheezes, diminished air movement - *Routine Cardiovascular Exam Present: RRR - *Routine Abdominal Exam Present: soft, normoactive bowel sounds - *Routine Extremities Exam Present: full ROM - *Routine Skin Exam Present: intact - *Routine Neurological Exam Present: alert, oriented X3, CN II-XII intact - Routine Psychiatric Exam Present: normal affect, normal thought process H&P: Result - Labs Labs: Short CBC 01/12/18 Range/Units 06:10 WBC 20.0 H (4.8-10.8) K/mm3 Hgb 10.5 L (12.2-16.2) g/dL Hct 33.2 L (37.0-47.0) % Plt Count 417 (142-424) K/mm3 [facility] 01/12/18 06:10 Sodium 140 Potassium 3.4 L Chloride 102 Carbon Dioxide 28 BUN 10 Creatinine 0.86 D Glucose 95 D Assessment and Plan - Assessment and plan all Dx Assessment and Plan for all problems:: The new IV antibiotics cardiology consult for the a.m.
[2018-01-12 17:50] LABS: Coronavirus 229E Not Detected (NotDetected); Coronavirus NL63 Not Detected (NotDetected); Coronavirus OC43 Not Detected (NotDetected); Coronovirus HKU1,PCR Not Detected (NotDetected)
--- NOTE | 2018-01-13 12:19 | Progress Note ---
Internal Medicine - PN: Subj *Date: 01/13/18 *Time: 12:17 Interval history: still feels sob but some better Exam Vital signs and Labs for Last 24 Hours: Temp Pulse Resp BP Pulse Ox 99.2 F 87 20 108/60 90 L 01/13/18 11:49 01/13/18 11:49 01/13/18 11:49 01/13/18 11:49 01/13/18 11:49 Laboratory Results - last 24 hr 01/12/18 17:40: Chlamy pneumoniae PCR Not detected, Adenovirus (PCR) Not detected, B.parapertussis DNA PCR Not detected, Coronavirus OC43 (PCR) Not detected, Coronavirus HKU1 (PCR) Not detected, Coronavirus 229E (PCR) Not detected, Coronavirus NL63 (PCR) Not detected, Human Metapneumovir PCR Not detected, Influenza A (H1) PCR Not detected, Influ A (H1N1/09) PCR Not detected , Influenza A (H3) PCR Not detected, Influenza Type A (PCR) , Influenza Type B ( PCR) Not detected, M. pneumoniae (PCR) Not detected, Parainfluenza 1 (PCR) Not detected, Parainfluenza 2 (PCR) Not detected, Parainfluenza 3 (PCR) Not detected , Parainfluenza 4 (PCR) Not detected, RSV (PCR) Not detected, Entero/Rhino (PCR ) Not detected I & O for Last 24 hours: Intake & Output 01/11/18 01/12/18 01/13/18 01/14/18 11:59 11:59 11:59 11:59 Intake Total 1080 / 1080 960 / 960 Output Total 1800 / 1800 2150 / 2150 Balance -720 / -720 -1190 / -1190 Weight 220 lb 225 lb 12.054 oz Microbiology Reports for the Last 24 Hours: Microbiology 01/12/18 00:40 Sputum - Expectorated Sputum Gram Stain - Final 01/12/18 00:40 Sputum - Expectorated Sputum Sputum Culture - Preliminary - Constitutional no acute distress - *Routine HEENT Exam Head: Present: normocephalic Eye: Present: EOMI, PERRL ENT: Present: mucous membranes dry - *Routine Neck Exam Absent: JVD - *Routine Respiratory Exam Present: decreased breath sounds - *Routine Cardiovascular Exam Present: RRR, murmur, S4 - *Routine Abdominal Exam Present: soft - *Routine Extremities Exam Absent: calf tenderness - *Routine Skin Exam Present: intact - *Routine Neurological Exam Present: alert, oriented X3, CN II-XII intact - Routine Psychiatric Exam Present: normal affect
[2018-01-13 14:18] LABS: Thyroid Stimulating Hormone 0.44 uIU/ml (0.358-3.740)
--- NOTE | 2018-01-13 16:20 | Consult Report ---
History of Present Illness Consult date: 01/13/18 Requesting physician: Zeke Chairez Consult reason: shortness of breath Chief complaint: Shortness of breath Additional Medical History:: 1. Dyspnea. 2. Essential hypertension. 3. Diastolic congestive heart failure. a. Last echocardiogram on 05/2017 revealed grade 1 diastolic dysfunction with raised left atrial pressure with an EF of 55%. 4. Coronary artery disease. a. Last heart catheterization was 05/2017, revealed mild nonconclusive coronary artery disease, mild pulmonary hypertension and no evidence of intracardial pulmonary shunt. 5. Former smoker. 6. Hypothyroidism History of present illness: 57-year-old white female admitted to facility with shortness of breath. Patient stated that she has been having increased shortness of breath with a productive cough of yellow production. Patient denies chest pain. Patient stated that she does have history of congestive heart failure. Patient stated she has not felt well in a few days. He fears she has pneumonia. Initial EKG revealed normal sinus rhythm possible inferior infarct it was an abnormal EKG with a heart rate of 99 bpm. Chest x-ray revealed congestive heart failure, right middle lobe airspace or symmetrical edema. Cardiac workup was performed in the ER. Troponins were negative 3. Baseline labs were unremarkable with the exception of WBC at 23.1 and potassium at 3.0. Patient was last seen in the cardiac clinic on 12/19/2017. [facility] History Medical History: Reports:: Congestive Heart Failure, Coronary Artery Disease, Hypertension, MRSA Denies:: Cancer, Diabetes Mellitus Type 1, Diabetes Mellitus Type 2, Internal Pacemaker Other Medical History: Reports: Thyroid Disease Laterality Cases: Bilateral: Tonsillectomy Other Surgeries: Yes: Angioplasty, Cholecystectomy, Colonoscopy, Dilation and Curettage, Hysterectomy-Total, Other. No: Pacemaker Amputation: No Fractures: No - *Social History Educational Level: Completed College Smoking Status: Current every day smoker Tobacco Type: cigarettes Alcohol Intake: former Alcohol Intake Frequency:: other Substance Use Type: denies use Occupational Status: employed Household Members: family - Psychiatric History Expresses thoughts of harming self/others: None Suicide Plan Description: No Plan *Family Hx:: Heart Attack, Coronary Artery Disease, Hypertension, Cancer, Stroke Meds Home Medications Medication Instructions Recorded Confirmed Type aspirin 81 mg tablet,delayed 81 mg PO DAILY 10/09/17 01/12/18 History release estradiol 1 mg tablet 1 mg PO DAILY 10/09/17 01/12/18 History furosemide 40 mg tablet 40 mg PO BID tab 10/09/17 01/11/18 History hyoscyamine 0.125 mg sublingual 0.125 mg SUBLINGUAL DAILYP PRN tab 10/09/17 History tablet levothyroxine 75 mcg tablet 75 mcg PO DAILY tab 10/09/17 01/12/18 History losartan 50 mg tablet 50 mg PO DAILY 10/09/17 01/12/18 History metoclopramide 5 mg tablet 5 mg PO QID 10/09/17 01/12/18 History omeprazole 40 mg capsule,delayed 40 mg PO DAILY 10/09/17 01/12/18 History release trazodone 50 mg tablet 50 mg PO HSP PRN 10/09/17 01/12/18 History dicyclomine 10 mg capsule 10 mg PO NEEDED PRN 10/16/17 01/12/18 History ondansetron HCl 4 mg tablet 8 mg PO Q4HP PRN tab 10/16/17 01/12/18 History Gabapentin [Neurontin 600mg 600 mg PO QID 01/11/18 01/11/18 History tablet] Metoprolol Succinate 25 mg PO DAILY 01/11/18 01/11/18 History Potassium Chloride [Micro-K 10mEq 10 meq PO DAILY 01/11/18 01/12/18 History cap] Spironolactone [Aldactone 50mg Tab] 50 mg PO DAILY 01/11/18 01/12/18 History metOLazone [Metolazone 5mg Tab] 2.5 mg PO DAILY 01/11/18 01/12/18 History Allergies Allergy/AdvReac Type Severity Reaction Status Date / Time azithromycin [From ZITHROMAX] Allergy Unknown SEVERE Verified 11/15/17 12:48 DIARRHEA/VOMITING erythromycin base Allergy Unknown Verified 11/15/17 12:48 [ERYTHROMYCIN BASE] levofloxacin [From LEVAQUIN] Allergy Unknown HALLUCINATI Verified 11/15/17 12:48 ONS minocycline [MINOCYCLINE] Allergy Unknown SEVER Verified 11/15/17 12:48 DIARRHEA/VOMITING Penicillins [PENICILLINS] Allergy Unknown MICHELE, HIVE Verified 11/15/17 12:48 Sulfa (Sulfonamide Allergy Unknown I-HIVES Verified 11/15/17 12:48 Antibiotics) [SULFA (SULFONAMIDE ANTIBIOTICS)] Cephalosporins Allergy Mild TROUBLE Uncoded 10/16/17 11:57 BREATHING Review of Systems - Constitutional Reports body ache(s), Reports fatigue, Reports lack of energy - *Cardiovascular Reports shortness of breath, Reports shortness of breath with activity, Reports generalized swelling, Denies chest pain, Denies lightheadedness, Denies radiating jaw, neck or arm pain - *Respiratory Reports cough, Reports shortness of breath, Reports excessive phlegm production , Denies pain with cough, Denies stridor, Denies wheezing - *Gastrointestinal Denies abdominal pain, Denies constipation, Denies loose stools - *Neurologic Reports weakness, Denies abnormal movements, Denies dizziness Exam Vital signs and Labs for Last 24 Hours: Temp Pulse Resp BP Pulse Ox 99.0 F 82 20 110/68 92 L 01/13/18 16:00 01/13/18 16:00 01/13/18 16:00 01/13/18 16:00 01/13/18 16:00 Laboratory Results - last 24 hr 01/12/18 17:40: Chlamy pneumoniae PCR Not detected, Adenovirus (PCR) Not detected, B.parapertussis DNA PCR Not detected, Coronavirus OC43 (PCR) Not detected, Coronavirus HKU1 (PCR) Not detected, Coronavirus 229E (PCR) Not detected, Coronavirus NL63 (PCR) Not detected, Human Metapneumovir PCR Not detected, Influenza A (H1) PCR Not detected, Influ A (H1N1/09) PCR Not detected , Influenza A (H3) PCR Not detected, Influenza Type A (PCR) , Influenza Type B ( PCR) Not detected, M. pneumoniae (PCR) Not detected, Parainfluenza 1 (PCR) Not detected, Parainfluenza 2 (PCR) Not detected, Parainfluenza 3 (PCR) Not detected , Parainfluenza 4 (PCR) Not detected, RSV (PCR) Not detected, Entero/Rhino (PCR ) Not detected 01/13/18 13:30: TSH 0.44, Thyroxine (T4) 8.0 I & O for Last 24 hours: Intake & Output 01/10/18 01/11/18 01/12/18 01/13/18 23:59 23:59 23:59 23:59 Intake Total 1920 / 1920 360 / 360 Output Total 3050 / 3050 1500 / 1500 Balance -1130 / -1130 -1140 / -1140 Weight 220 lb 225 lb 12.054 oz Microbiology Reports for the Last 24 Hours: Microbiology 01/12/18 00:40 Sputum - Expectorated Sputum Gram Stain - Final 01/12/18 00:40 Sputum - Expectorated Sputum Sputum Culture - Preliminary - Constitutional no acute distress, obese, cooperative - *Routine Neck Exam Present: supple, full ROM, normal carotid upstroke, trachea midline. Absent: JVD, carotid bruit - *Routine Respiratory Exam Present: CTA bilaterally. Absent: rhonchi, stridor, wheezes, crackles - *Routine Cardiovascular Exam Present: RRR, Normal S1, Normal S2. Absent: murmur, JVD - *Routine Abdominal Exam Present: soft. Absent: guarding, firm - *Routine Extremities Exam Present: full ROM, pulses intact, normal capillary refill. Absent: clubbing, edema - *Routine Neurological Exam Present: alert, oriented X3, CN II-XII intact, moving all extremities, normal speech Assessment and Plan (1) CHF (congestive heart failure) Current visit: No Status: Acute Qualifiers: Heart failure type: diastolic Heart failure chronicity: acute on chronic Qualified Code(s): I50.33 - Acute on chronic diastolic (congestive) heart failure Category: Medical Code(s): I50.9 - Heart failure, unspecified (2) CAP (community acquired pneumonia) Current visit: Yes Status: Acute Qualifiers: Laterality: unspecified laterality Qualified Code(s): J18.9 - Pneumonia, unspecified organism Category: Medical Code(s): J18.9 - Pneumonia, unspecified organism (3) Hypoxia Current visit: Yes Status: Acute Category: Medical Code(s): R09.02 - Hypoxemia (4) Edema of lower extremity Current visit: No Status: Acute Category: Medical Code(s): R60.0 - Localized edema (5) Hypertensive disorder Current visit: No Status: Chronic Qualifiers: Hypertension type: essential hypertension Qualified Code(s): I10 - Essential (primary) hypertension Category: Medical Code(s): I10 - Essential (primary) hypertension (6) Obstructive sleep apnea syndrome Current visit: No Status: Chronic Category: Medical Code(s): G47.33 - Obstructive sleep apnea (adult) (pediatric) (7) Diastolic dysfunction Current visit: No Status: Chronic Category: Medical Code(s): I51.9 - Heart disease, unspecified (8) Coronary arteriosclerosis Current visit: No Status: Chronic Category: Medical Code(s): I25.10 - Atherosclerotic heart disease of [place] coronary artery without angina pectoris - Assessment and plan all Dx Assessment and Plan for all problems:: Plan: 1. Continue current medication regimen. 2. Obtain echocardiogram for LV function and valve status. 3. No further cardiac testing recommended at this time.
--- NOTE | 2018-01-13 23:14 | Cardiology Report ---
PROCEDURE: 2-D M-mode and color Doppler study INDICATIONS FOR THE TEST: Chest pain COPD Heart Murmur Tobacco Smoking+ Palpitations Fatigue Syncope Edema Hypertension+Diabetes Mellitus Rheumatic Fever SOB+SOTELO Obesity Hyperlipidemia Family History HD Additional History CHF, CAD. MRSA PATIENT INFORMATION HEIGHT: 64 WEIGHT:220 GENDER: Female B/P:115/51 2-D/M-MODE INTERPRETATION: 2-D MEASUREMENTS OBSERVED VALUES IN CMS Right Ventricular Dimension (RVDd) 3.6 Interventricular Septum (Thickness)(IVsd) 1.7 Left Ventricular Internal Dimensions(LVIDd) 4.1 Left Ventricular Posterior Wall (Thickness)(LVPWd) 1.2 Aortic Root 2.9 Aortic Cusp Separation 2.1 Left Atrial Dimensions (LAD) 4.8 2D 1. Left atrium is mildly enlarged, left ventricle is normal size, there is mild concentric left ventricular hypertrophy, visually estimated ejection fraction 55% with no obvious regional wall motion abnormality. 2. The right atrium and right ventricle are mildly enlarged with normal contractility. 3. The aortic valve is minimally thickened and fibrosed. 4. The mitral and tricuspid valve are grossly normal. 5. The pulmonic valve is poorly visualized. 6. No significant pericardial effusion noted. DOPPLER INTERROGATION: Doppler interrogation of the aortic, mitral and tricuspid valvular presence of mild mitral and tricuspid regurgitation, tricuspid and jet velocity insufficient for calculation of the right ventricular systolic pressure, grade 1 diastolic dysfunction seen without tissue Doppler evidence of raised left atrial pressure. CONCLUSION: 1. Mildly enlarged left atrium, normal left ventricular size, mild concentric left ventricular hypertrophy, visually estimated ejection fraction 55% with no obvious regional wall motion abnormality, grade 1 diastolic dysfunction seen without tissue Doppler evidence of raised left atrial pressure. 2. Mild mitral and tricuspid regurgitation 3. Mildly enlarged right ventricle with normal contractility. 4. No significant pericardial effusion noted.
--- NOTE | 2018-01-14 13:05 | Discharge Summary ---
General - General Admission date: 01/11/18 Discharge date: 01/14/18 HPI HPI: 57-year-old female presented to the ER with complaints of says she has not felt well all week. She has increasing shortness of breath and dyspnea on exertion. a cough producing yellow sputum. She has increased edema and weight gain of 6 pounds. She has decreased urination. History of congestive heart failure. Last echo per patient was 4-5 months ago patient is a smoker. Patient admitted for pneumonia and mild CHF. Will have cardiology consult and continue antibiotics Hospital Course Hospital Course: pt improved in hospital on abx and resp care - she had improved vs and exam and was d/c on abx - she was seen by card --year-old white female admitted to facility with shortness of breath. Patient stated that she has been having increased shortness of breath with a productive cough of yellow production. Patient denies chest pain. Patient stated that she does have history of congestive heart failure. Patient stated she has not felt well in a few days. He fears she has pneumonia. Initial EKG revealed normal sinus rhythm possible inferior infarct it was an abnormal EKG with a heart rate of 99 bpm. Chest x-ray revealed congestive heart failure, right middle lobe airspace or symmetrical edema. Cardiac workup was performed in the ER. Troponins were negative 3. Baseline labs were unremarkable with the exception of WBC at 23.1 and potassium at 3.0. Patient was last seen in the cardiac clinic on 12/19/2017Dyspnea. 2. Essential hypertension. 3. Diastolic congestive heart failure. a. Last echocardiogram on 05/2017 revealed grade 1 diastolic dysfunction with raised left atrial pressure with an EF of 55%. 4. Coronary artery disease. a. Last heart catheterization was 05/2017, revealed mild nonconclusive coronary artery disease, mild pulmonary hypertension and no evidence of intracardial pulmonary shunt. 5. Former smoker. 6. Hypothyroidism Objective Vital signs: Temp Pulse Resp BP Pulse Ox 98.6 F 76 20 121/61 92 L 01/14/18 11:06 01/14/18 11:06 01/14/18 11:06 01/14/18 11:06 01/14/18 11:06 no acute distress - *Routine HEENT Exam Eye: Present: EOMI, PERRL ENT: Present: mucous membranes dry - *Routine Neck Exam Absent: JVD - *Routine Respiratory Exam Present: wheezes. Absent: respiratory distress - *Routine Cardiovascular Exam Present: RRR, murmur, S4 - *Routine Abdominal Exam Present: soft - *Routine Extremities Exam Absent: edema, calf tenderness - *Routine Skin Exam Present: dry - *Routine Neurological Exam Present: alert, oriented X3, CN II-XII intact - Routine Psychiatric Exam Present: normal affect Results Labs on day of discharge: Labs from last 24 hours 01/13/18 13:30 TSH 0.44 Thyroxine (T4) 8.0 Preliminary micro results at discharge 01/12/18 00:40 Sputum Culture - Preliminary Sputum - Expectorated Sputum Gram Positive Cocci DS: Diagnosis - Discharge Diagnosis (1) CAP (community acquired pneumonia) Status: Acute (2) CHF (congestive heart failure) Status: Acute Discharge Plan - Patient Discharge Instructions ACTIVITY: Continue current activity DIET: continue same diet Patient Instructions: Low-Sodium Diet - Follow up Plan Disposition: Home, Self-[facility] Medications: Home Medications Medication Instructions Recorded Confirmed Type aspirin 81 mg tablet,delayed 81 mg PO DAILY 10/09/17 01/12/18 History release estradiol 1 mg tablet 1 mg PO DAILY 10/09/17 01/12/18 History furosemide 40 mg tablet 40 mg PO BID tab 10/09/17 01/11/18 History hyoscyamine 0.125 mg sublingual 0.125 mg SUBLINGUAL DAILYP PRN tab 10/09/17 History tablet levothyroxine 75 mcg tablet 75 mcg PO DAILY tab 10/09/17 01/12/18 History losartan 50 mg tablet 50 mg PO DAILY 10/09/17 01/12/18 History metoclopramide 5 mg tablet 5 mg PO QID 10/09/17 01/12/18 History omeprazole 40 mg capsule,delayed 40 mg PO DAILY 10/09/17 01/12/18 History release trazodone 50 mg tablet 50 mg PO HSP PRN 10/09/17 01/12/18 History dicyclomine 10 mg capsule 10 mg PO NEEDED PRN 10/16/17 01/12/18 History ondansetron HCl 4 mg tablet 8 mg PO Q4HP PRN tab 10/16/17 01/12/18 History Gabapentin [Neurontin 600mg 600 mg PO QID 01/11/18 01/11/18 History tablet] Metoprolol Succinate 25 mg PO DAILY 01/11/18 01/11/18 History Potassium Chloride [Micro-K 10mEq 10 meq PO DAILY 01/11/18 01/12/18 History cap] Spironolactone [Aldactone 50mg Tab] 50 mg PO DAILY 01/11/18 01/12/18 History metOLazone [Metolazone 5mg Tab] 2.5 mg PO DAILY 01/11/18 01/12/18 History Prescriptions/Medication Reconciliation: New Bifidobacterium Infantis [Align] 4 mg PO DAILY #30 cap Fluconazole [Diflucan 100mg tablet] 100 mg PO DAILY #5 tab levoFLOXacin [Levaquin 500mg tab] 500 mg PO DAILY #5 tab Continue aspirin 81 mg tablet,delayed release 81 mg PO DAILY estradiol 1 mg tablet 1 mg PO DAILY furosemide 40 mg tablet 40 mg PO BID tab hyoscyamine 0.125 mg sublingual tablet 0.125 mg SUBLINGUAL DAILYP PRN tab PRN Reason: IBS levothyroxine 75 mcg tablet 75 mcg PO DAILY tab losartan 50 mg tablet 50 mg PO DAILY metoclopramide 5 mg tablet 5 mg PO QID omeprazole 40 mg capsule,delayed release 40 mg PO DAILY trazodone 50 mg tablet 50 mg PO HSP PRN PRN Reason: Sleep dicyclomine 10 mg capsule 10 mg PO NEEDED PRN PRN Reason: IBS ondansetron HCl 4 mg tablet 8 mg PO Q4HP PRN tab PRN Reason: Nausea Spironolactone [Aldactone 50mg Tab] 50 mg PO DAILY Potassium Chloride [Micro-K 10mEq cap] 10 meq PO DAILY Metoprolol Succinate 25 mg PO DAILY Gabapentin [Neurontin 600mg tablet] 600 mg PO QID metOLazone [Metolazone 5mg Tab] 2.5 mg PO DAILY
[2018-01-14 15:15] VITALS: BP 123/54
== END 2018-01-14 14:10 | disposition home or self-care (01) ==
LOC: 2ND 21:31 → ER 21:31 → OBSVTOIN 01-12 00:30 → 2ND 01-12 00:32
PROVIDERS: ADMIT Family Medicine; ATTEND Emergency Medicine

== ENCOUNTER → 2018-01-30 09:42 | Outpatient (REF) | payer BC, SELFPAY ==
--- NOTE | 2018-01-30 10:07 | XR_ITS ---
XR chest 2V HISTORY: Shortness of air ITS.REASON: soa ORDERING PHYSICIAN: Sadie Mathis PATIENT AGE: 57 years COMPARISON: 01/11/2018 FINDINGS: There is cardiomegaly without failure. The previously noted CHF with bilateral lower lobe airspace disease has improved. There is a new patchy area of consolidation in the left perihilar region consistent with pneumonia. No effusions. No acute bony anomalies. IMPRESSION: 1. Left upper lobe pneumonia. 2. Improved CHF
[2018-01-30 13:38] LABS: Basophils % 0.3 % (0.1-2.0); Eosinophils % 0.3 % (0.1-12.0); Hematocrit 32.6 % (37.0-47.0); Hemoglobin 10.6 g/dL (12.2-16.2); Lymphocytes # 2.4 K/mm3 (0.7-4.5); Lymphocytes % 18.6 K/mm3 (10-50); Mean Corpuscular HGB Conc 32.6 g/dL (31.8-35.4); Mean Corpuscular Hemoglobin 31.3 pg (27.0-31.2); Mean Corpuscular Volume 95.9 fl (81-99); Mean Platelet Volume 8.5 fl (7.4-10.4); Monocytes # 0.8 K/mm3 (0.1-1.0); Monocytes % 5.8 % (1.7-9.3); Neutrophils # 9.6 K/mm3 (1.8-7.8); Neutrophils % 74.9 % (37.0-80.0); Platelet Count 392 K/mm3 (142-424); White Blood Count 12.8 K/mm3 (4.8-10.8)
[2018-01-30 13:47] LABS: Alanine Aminotransferase 35 U/L (12-78); Albumin Level 3.3 gm/dL (3.4-5.0); Albumin/Globulin Ratio 0.9 (1.1-1.8); Alkaline Phosphatase 73 U/L (46-116); Anion Gap 14.8 mEq/L (5-15); Aspartate Amino Transferase 39 U/L (15-37); Bilirubin,Total 0.1 mg/dL (0.2-1.0); Blood Urea Nitrogen 29 mg/dL (7-18); Calcium 9.6 mg/dL (8.5-10.1); Carbon Dioxide 27 mmol/L (21.0-32.0); Chloride 106 mmol/L (98-107); Creatinine,Serum 1.18 mg/dL (0.55-1.02); Estimated Glomerular Filt Rate 47 ml/min (>60); GFR (African American) 57 ML/MIN (>60); Globulin 3.5 gm/dl (1.3-3.2); Glucose 95 mg/dL (74-106); Potassium 3.8 mmoL/L (3.5-5.1); Sodium 144 mmol/L (136-145); Total Protein,Serum 6.8 gm/dL (6.4-8.2)
== END ==
LOC: LAB 09:42
PROVIDERS: PCP Emergency Medicine; Visit Provider Nurse Practitioner Family
DX: R05 Cough (principal); R06.02 Shortness of breath
CPT/HCPCS: 71046; 80053; 85025

== ENCOUNTER 2018-01-30 16:28 | Inpatient (IN) ==
--- NOTE | 2018-01-30 17:03 | Emergency Department Note ---
ED Disposition Clinical Impression: Pneumonia involving left lung Qualifiers: Pneumonia type: due to unspecified organism Lung location: upper lobe of lung Qualified Code(s): J18.1 - Lobar pneumonia, unspecified organism Disposition: Admitted as Observation Condition on Discharge: Fair - Critical Care Critical Care Time: No Attestation: On 01/30/18, the high probability of a clinically significant, sudden or life threatening deterioration of the following system(s) required my full and direct attention, intervention and personal management. The time I documented below is in addition to time spent performing reported procedures but includes the following listed in this critical care notation. Medical Decision Making - Medical Records Medical records reviewed: Yes: I reviewed the patient's medical records. MR Comment: CBC reviewed; CXR reviewed. Lactic ordered. - Adolph Inquiry Pt receiving controlled substance: No Vital Signs: 01/30/18 16:42 01/30/18 18:35 Temperature 98.3 F Temperature Source Oral Pulse Rate 71 Pulse Rate [Right Radial] 60 Respiratory Rate 20 Blood Pressure [Right Arm] 104/52 Blood Pressure Mean [Right Arm] 69 Blood Pressure Source [Right Arm] Automatic Cuff Blood Pressure Position [Right Arm] Sitting 02 Sat by Pulse Oximetry 97 Oxygen Delivery Method Room Air - Lab Data Lab results reviewed: Yes: I reviewed the patient's lab results. Lab Results 01/30/18 17:05: Lactic Acid 0.9 Result diagrams: 02/02/18 06:10 02/02/18 06:10 Orders (Tests/Meds): ED MEDICATIONS Discontinued Medications Generic Name Dose Route Start Last Admin Trade Name Freq PRN Reason Stop Dose Admin Acetaminophen 650 mg 01/30/18 20:02 02/03/18 00:45 Acetaminophen 325mg Tab PO 03/01/18 20:01 650 mg Q4HP PRN Administration As Needed for Fever or Pain Hydrocodone Bitart/Acetaminophen 1 tab 02/01/18 21:45 02/01/18 21:49 [place] 5/325mg Tablet PO 02/01/18 21:46 1 tab ONCE ONE Administration Albuterol/Ipratropium 3 ml 01/30/18 23:00 Duoneb 3ml [facility] 03/01/18 22:59 Q6 LEN Albuterol/Ipratropium 3 ml 01/30/18 23:00 01/30/18 18:39 Duoneb 3ml Neb 03/01/18 22:59 3 ml Q6 LEN Administration Albuterol/Ipratropium 3 ml 01/30/18 23:00 01/31/18 06:04 Duoneb 3ml [facility] 03/01/18 22:59 3 ml Q6 LEN Administration Albuterol/Ipratropium 3 ml 01/31/18 07:51 02/03/18 11:08 Duoneb 3ml [facility] 03/01/18 22:59 3 ml Q6RT LEN Administration Aspirin 81 mg 01/31/18 09:00 Aspirin 81mg Enteric Coated Tablet PO 03/02/18 08:59 DAILY LEN Aspirin 81 mg 01/31/18 09:00 02/03/18 09:12 Aspirin 81mg Enteric Coated Tablet PO 03/02/18 08:59 81 mg DAILY LEN Administration Dicyclomine HCl 10 mg 01/30/18 18:14 Bentyl 10mg Capsule PO 03/01/18 18:13 NEEDED PRN IBS Dicyclomine HCl 10 mg 01/30/18 20:02 Bentyl 10mg Capsule PO 03/01/18 20:01 QIDP PRN IBS Estradiol 1 mg 01/31/18 09:00 Estrace 1mg Tablet PO 03/02/18 08:59 DAILY LEN Estradiol 1 mg 01/31/18 09:00 02/03/18 09:12 Estrace 1mg Tablet PO 03/02/18 08:59 1 mg DAILY LEN Administration Fluticasone Propionate 2 spr 01/31/18 09:00 Flonase 50mcg Nasal [place] 16gm NS 03/02/18 08:59 DAILY LEN Fluticasone Propionate 2 spr 01/31/18 09:00 02/03/18 09:12 Flonase 50mcg Nas[place] 16gm NS 03/02/18 08:59 2 sprays DAILY LEN Administration Furosemide 40 mg 01/31/18 09:00 Lasix 40mg Tablet PO 03/02/18 08:59 DAILY LEN Furosemide 40 mg 01/31/18 09:00 02/03/18 09:12 Lasix 40mg Tablet PO 03/02/18 08:59 40 mg DAILY LEN Administration Gabapentin 600 mg 01/30/18 21:00 Neurontin 600mg Tablet PO 03/01/18 20:59 QID LEN Gabapentin 600 mg 01/30/18 21:00 02/03/18 09:12 Neurontin 600mg Tablet PO 03/01/18 20:59 600 mg QID LEN Administration Hyoscyamine 0.125 mg 01/31/18 09:00 Levsin 0.125mg Tablet PO 03/02/18 08:59 DAILYP PRN STOMACH Vancomycin HCl 2,000 mg/ 250 mls @ 125 mls/hr 01/30/18 18:00 01/30/18 18:23 Sodium Chloride IV 01/30/18 18:01 125 mls/hr ONCE ONE Administration Protocol Vancomycin HCl 1,500 mg/ 250 mls @ 125 mls/hr 01/30/18 21:00 Sodium Chloride IV 02/13/18 20:59 Q12 LEN Protocol Vancomycin HCl 1,500 mg/ 250 mls @ 125 mls/hr 01/30/18 21:00 02/01/18 11:33 Sodium Chloride IV 02/13/18 20:59 Not Given Q12 LEN Protocol Sodium Chloride 1,000 mls @ 50 mls/hr 01/30/18 20:02 02/03/18 04:32 Sod Chlor 0.9% 1000ml Bag IV 03/01/18 20:01 Not Given .Q20H LEN Vancomycin HCl 1,750 mg/ 250 mls @ 125 mls/hr 01/31/18 09:00 02/03/18 10:48 Sodium Chloride IV 02/14/18 08:59 125 mls/hr Q12H LEN Administration Protocol Ibuprofen 400 mg 02/01/18 21:38 02/03/18 04:25 Motrin 400mg Tablet PO 03/03/18 21:37 400 mg Q4HP PRN Administration Mild Pain Irbesartan 75 mg 01/31/18 09:00 02/03/18 09:11 Avapro 75mg Tablet PO 03/02/18 08:59 75 mg DAILY LEN Administration Ketorolac Tromethamine 30 mg 02/01/18 11:20 02/01/18 11:32 Toradol 30mg/Ml Vial IV 02/01/18 11:21 30 mg ONCE ONE Administration Ketorolac Tromethamine 30 mg 02/01/18 18:40 02/02/18 09:23 Toradol 30mg/Ml Vial IV 03/03/18 18:39 30 mg Q6HP PRN Administration MODERATE PAIN Levothyroxine Sodium 75 mcg 01/31/18 09:00 Synthroid 75mcg (0.075mg) Tablet PO 03/02/18 08:59 DAILY LEN Levothyroxine Sodium 75 mcg 01/31/18 09:00 02/03/18 09:12 Synthroid 75mcg (0.075mg) Tablet PO 03/02/18 08:59 75 mcg DAILY LEN Administration Methylprednisolone Sodium Succinate 125 mg 01/30/18 17:30 Solu-Medrol 125mg/2ml Vial IV 03/01/18 17:29 DAILY LEN Methylprednisolone Sodium Succinate 125 mg 01/31/18 09:00 Solu-Medrol 125mg/2ml Vial IV 03/01/18 17:29 DAILY LEN Methylprednisolone Sodium Succinate 125 mg 01/31/18 09:00 Solu-Medrol 125mg/2ml Vial IV 03/01/18 17:29 DAILY LEN Methylprednisolone Sodium Succinate 60 mg 01/31/18 09:00 02/03/18 09:11 Solu-Medrol 125mg/2ml Vial IV 03/02/18 08:59 60 mg Q8H LEN Administration Metoclopramide HCl 5 mg 01/30/18 21:00 Reglan 5mg Tablet PO 03/01/18 20:59 QID LEN Metoclopramide HCl 5 mg 01/30/18 21:00 02/03/18 09:11 Reglan 5mg Tablet PO 03/01/18 20:59 5 mg QID LEN Administration Metoprolol Succinate 25 mg 01/31/18 09:00 Toprol Xl 25mg Tablet PO 03/02/18 08:59 DAILY LEN Metoprolol Succinate 25 mg 01/31/18 09:00 02/03/18 09:12 Toprol Xl 25mg Tablet PO 03/02/18 08:59 25 mg DAILY LEN Administration Miscellaneous 1 each 01/30/18 17:15 Vancomycin Consult Request * 03/01/18 17:14 CONSULT PHARMACY [facility] Miscellaneous 1 each 01/30/18 18:14 Vancomycin Consult Request * 03/01/18 17:14 CONSULT PHARMACY [facility] Miscellaneous 1 each 01/30/18 20:02 01/31/18 08:39 Vancomycin Consult Request * 03/01/18 17:14 Not Given CONSULT PHARMACY [facility] Non-Formulary Medication 1 inh 01/30/18 18:14 Fluticasone/Vilanterol [Breo Ellipta 100-25 Mcg Inh] INHALATION 06/02/18 18: 13 Q24H LEN Non-Formulary Medication 0.125 mg 01/30/18 18:14 Hyoscyamine Sulfate [Hyoscyamine Sulfate] SUBLINGUAL DAILYP PRN IBS Non-Formulary Medication 50 mg 01/31/18 09:00 Losartan Potassium [Cozaar] PO 03/02/18 08:59 DAILY LEN Non-Formulary Medication 40 mg 01/31/18 09:00 Omeprazole [Omeprazole 40mg Capsule] PO 03/02/18 08:59 DAILY LEN Non-Formulary Medication 50 mg 01/31/18 09:00 Spironolactone [Aldactone 50mg Tab] PO 03/02/18 08:59 DAILY [facility] Pt's Own Med 1 inh 01/31/18 09:00 02/03/18 09:13 Fluticasone/ INHALATION 03/02/18 08:59 Not Given Vilanterol [Breo DAILY LEN Ellipta 100-25 Mcg Inh] Ondansetron HCl 4 mg 01/30/18 20:02 02/01/18 10:09 Zofran 4mg/2ml Vial IV 03/01/18 20:01 4 mg Q8HP PRN Administration Nausea Pantoprazole Sodium 40 mg 01/31/18 21:00 02/02/18 20:13 Protonix 40mg Tablet PO 03/02/18 20:59 40 mg HS LEN Administration Potassium Chloride 10 meq 01/31/18 09:00 Micro-K 10meq Capsule PO 03/02/18 08:59 DAILY LEN Potassium Chloride 10 meq 01/31/18 09:00 02/03/18 09:11 Micro-K 10meq Capsule PO 03/02/18 08:59 10 meq DAILY LEN Administration Promethazine HCl 12.5 mg 01/30/18 18:14 Phenergan 12.5mg Tablet PO 03/01/18 18:13 Q8H PRN Nausea Promethazine HCl 12.5 mg 01/30/18 20:02 02/02/18 06:26 Phenergan 12.5mg Tablet PO 03/01/18 18:13 12.5 mg Q8H PRN Administration Nausea Sodium Chloride 10 ml 01/30/18 20:02 Saline Flush 10ml Syringe IV 03/01/18 20:01 NEEDED PRN Maintain IV Site Sodium Chloride 10 ml 02/03/18 08:04 Saline Flush 10ml Syringe IV 02/04/18 08:07 NEEDED PRN Maintain IV Site Spironolactone 50 mg 01/31/18 09:00 02/03/18 09:12 Aldactone 25mg Tablet PO 03/02/18 08:59 50 mg DAILY LEN Administration Temazepam 15 mg 02/01/18 18:45 02/02/18 22:52 Restoril 15mg Capsule PO 03/03/18 18:44 15 mg HSP PRN Administration Sleep Trazodone HCl 50 mg 01/30/18 18:14 Desyrel 50mg Tablet PO 03/01/18 18:13 HSP PRN Sleep Trazodone HCl 50 mg 01/30/18 20:02 01/31/18 21:40 Desyrel 50mg Tablet PO 03/01/18 18:13 50 mg HSP PRN Administration Sleep Medical Decision Narrative: Vanc per pharmacy; 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 Chairez. Resp/SOB HPI - General Chief Complaint: Shortness of Breath/Dyspnea Stated Complaint: SOB,cough Time Seen by Provider: 01/30/18 16:56 Mode of Arrival: Ambulatory Source of Information: Patient Limitations: No Limitations Description of Symptoms (Recalled from ER Triage Doc. by RN): pt c/o sob that started lastnight. pt reports she was seen by sharath colon aprn and was sent to [facility] for a chest xray and had labs drawn in the pcp office. pt reports sharath told her that her chest xray showed pneumonia and pt was sent to er to be admitted. - History of Present Illness CXR ordered by LIVING SPECIALIST showed JENNY pneumonia today; patient has failed outpatient therapy on Levaquin and has hx frequent pneumonia and multiple medication allergies; denies COPD but occasionally uses nebs; no fever or flu sx; has green sputum. No vomiting today but had vomiting a few days ago with onset of pneumonia. Complaint: cough Onset (ago): day(s) Severity: mild Associated symptoms: denies other symptoms Treatment prior to arrival: none - Related Data Home Medications Medication Instructions Recorded Confirmed estradiol 1 mg tablet 1 mg PO DAILY 10/09/17 01/30/18 levothyroxine 75 mcg tablet 75 mcg PO DAILY tab 10/09/17 01/30/18 losartan 50 mg tablet 50 mg PO DAILY 10/09/17 01/30/18 metoclopramide 5 mg tablet 5 mg PO QID 10/09/17 01/30/18 trazodone 50 mg tablet 50 mg PO HSP PRN 10/09/17 01/30/18 dicyclomine 10 mg capsule 10 mg PO NEEDED PRN 10/16/17 01/30/18 Gabapentin [Neurontin 600mg 600 mg PO QID 01/11/18 01/30/18 tablet] Metoprolol Succinate 25 mg PO DAILY 01/11/18 01/30/18 Potassium Chloride [Micro-K 10mEq 10 meq PO DAILY 01/11/18 01/30/18 cap] Spironolactone [Aldactone 50mg Tab] 50 mg PO DAILY 01/11/18 01/30/18 furosemide 40 mg tablet 40 mg PO DAILY tab 01/23/18 01/30/18 Fluticasone Propionate [Flonase 2 spr NS DAILY 01/30/18 01/30/18 50mcg nasal spray 16gm] Albuterol Sulfate [Albuterol HFA 1 - 2 puffs IH Q4-6H PRN 01/31/18 01/31/18 Inhaler] Aspirin [Aspirin 81mg EC Tab] 81 mg PO DAILY 01/31/18 01/31/18 Fluticasone/Vilanterol [Breo 1 puff IH DAILY 01/31/18 01/31/18 Ellipta 100-25 Mcg INH] Hyoscyamine Sulfate 0.125 mg SL DAILYP PRN 01/31/18 01/31/18 Omeprazole [Omeprazole 40mg 40 mg PO DAILY 01/31/18 01/31/18 Capsule] Previous Rx's Medication Instructions Recorded Promethazine HCl [Phenergan 12.5mg 12.5 mg PO Q8H PRN #10 tab 01/27/18 tablet] Temazepam [Restoril 15mg capsule] 15 mg PO HSP PRN capsule 02/03/18 predniSONE [Prednisone 20mg 20 mg PO DAILY #10 tab 02/03/18 Tab] Allergies Allergy/AdvReac Type Severity Reaction Status Date / Time Cephalosporins Allergy RASH Verified 01/30/18 16:49 erythromycin base Allergy Hives Verified 01/30/18 16:49 minocycline Allergy RASH Verified 01/30/18 16:49 penicillin G Allergy Hives Verified 01/30/18 16:49 Sulfa (Sulfonamide Allergy RASH Verified 01/30/18 16:49 Antibiotics) [facility] History Medical History: Reports:: Anxiety, Congestive Heart Failure, Coronary Artery Disease, Depression, Gastroesophageal Reflux Disease(GERD), Hypertension Denies:: Cancer, Diabetes Mellitus Type 1, Diabetes Mellitus Type 2, Internal Pacemaker, MRSA Other Medical History: Reports: Anemia, Arthritis, Fibromyalgia, Hypothyroidism , Thyroid Disease, Other Comment: SLEEP APNEA Laterality Cases: Bilateral: Tonsillectomy Other Surgeries: Yes: Angioplasty, Cardiac Catheterization, Cholecystectomy, Colonoscopy, Dilation and Curettage, Hysterectomy-Total, Other. No: Pacemaker Amputation: No Fractures: No Comment: GALLBLADDER,2 CYSTS REMOVED FROM RIGHT SHOULDER - Social History Smoking Status: Former smoker Tobacco Type: cigarettes # Packs/Day (cigarettes): 1 #Yrs smoked (if former smoker): 20 Alcohol Intake: never Alcohol Intake Frequency:: other Substance Use Type: denies use Occupational Status: employed Housing: house Household Members: family - Psychiatric History Expresses thoughts of harming self/others: None Suicide Plan Description: No Plan Pschychiatric History:: Reports:: Anxiety, Depression Family Hx:: No significant family history ROS Obtained: Yes All systems reviewed & no additional complaints Physical Exam - General General appearance: alert, in no apparent distress - Head Head exam: atraumatic, normocephalic, normal inspection - Eye Eye exam: Present: normal appearance, PERRL, EOMI - ENT ENT exam: Present: normal exam, normal oropharynx, mucous membranes moist, TM's normal bilaterally, normal external ear exam - Neck Neck exam: Present: normal inspection, full ROM, trachea midline. Absent: meningismus, lymphadenopathy - Chest Chest inspection: Present: normal inspection, symmetric chest wall rise. Absent : tenderness - Respiratory Respiratory exam: Present: normal lung sounds bilaterally. Absent: respiratory distress - Cardiovascular Cardiovascular exam: Present: regular rate, normal rhythm. Absent: JVD - Abdominal Exam Abdominal exam: Present: soft, normal bowel sounds. Absent: distention, tenderness, guarding - Extremities Exam Extremities exam: Present: normal inspection, full ROM, normal capillary refill. Absent: calf tenderness - Back Exam Back exam: Present: normal inspection. Absent: tenderness - Neurological Exam Neurological exam: Present: alert, oriented X3 - Psychiatric Psychiatric exam: Present: normal affect, normal mood - Skin Skin exam: Present: warm, dry, intact, normal color - Lymphatic Lymphatic Findings: no adenopathy
[2018-01-31 06:50] LABS: Basophils # 0.1 K/mm3 (0-0.2); Basophils % 0.5 % (0.1-2.0); Eosinophils # 0.2 K/mm3 (0.0-0.4); Eosinophils % 1.6 % (0.1-12.0); Lymphocytes # 2.5 K/mm3 (0.7-4.5); Lymphocytes % 25.4 K/mm3 (10-50); Mean Corpuscular HGB Conc 33.1 g/dL (31.8-35.4); Mean Corpuscular Hemoglobin 30.9 pg (27.0-31.2); Mean Corpuscular Volume 93.5 fl (81-99); Mean Platelet Volume 8.5 fl (7.4-10.4); Monocytes # 0.6 K/mm3 (0.1-1.0); Monocytes % 6.5 % (1.7-9.3); Neutrophils # 6.4 K/mm3 (1.8-7.8); Platelet Count 342 K/mm3 (142-424); Red Blood Count 3.07 M/mm3 (4.20-5.40); Red Cell Distribution Width 15.1 % (11.5-17.5); White Blood Count 9.7 K/mm3 (4.8-10.8)
[2018-01-31 07:09] LABS: Hematocrit 28.6 % (37.0-47.0); Hemoglobin 9.5 g/dL (12.2-16.2)
--- NOTE | 2018-01-31 07:31 | Pharmacy Consult Notes ---
[facility] Pharmacy VTE Monitoring - Patient Demographics Admission date: 01/30/18 Report Date: 01/31/18 Time: 07:31 Allergies/Adverse Reactions: Patient Allergies Cephalosporins Allergy (Verified 01/30/18 16:49) RASH erythromycin base Allergy (Verified 01/30/18 16:49) Hives minocycline Allergy (Verified 01/30/18 16:49) RASH penicillin G Allergy (Verified 01/30/18 16:49) Hives Sulfa (Sulfonamide Antibiotics) Allergy (Verified 01/30/18 16:49) RASH Height: 1.63 m Weight: 100.924 kg Patient Problems: Current Active Problems Pneumonia involving left lung (Acute) - VTE Risk Labs: VTE Related Lab Results Hgb 9.5 g/dL (12.2-16.2) L D 01/31/18 06:30 Hct 28.6 % (37.0-47.0) L 01/31/18 06:30 Plt Count 342 K/mm3 (142-424) 01/31/18 06:30 BUN 16 mg/dL (7-18) D 01/31/18 06:30 Creatinine 0.70 mg/dL (0.55-1.02) D 01/31/18 06:30 Estimated Creat Clear 141 mL/min (0-300) 01/31/18 06:30 VTE Score: 6 VTE Risk Level: Moderate Risk - Prophylaxis VTE Prophylaxis Ordered?: Yes Types of VTE Prophylaxis: TEDS Knee High Location of Applied Device: Bilateral Lower Extremeties - VTE Diagnosis Confirmed Treatment or plan recommended: Continue Current Treatment
--- NOTE | 2018-01-31 08:38 | History & Physical Report ---
*Admission Date: 01/30/18 *Chief complaint: sob *History of present illness: 57-year-old female presents to the ER with complaints of shortness of breath and coughing up green sputum. Patient was seen by PCP chest x-ray was ordered results left upper lobe pneumonia. Patient has been on Levaquin as an outpatient and failed outpatient treatment. Patient has history of frequent pneumonia, with history of MRSA in sputum, and has multiple allergies. She is admitted for pneumonia for IV antibiotics, IV steroids and sputum culture to identify organism. [facility] History I have reviewed the patient's past medical history: Yes Medical History: Reports:: Anxiety, Congestive Heart Failure, Coronary Artery Disease, Depression, Gastroesophageal Reflux Disease(GERD), Hypertension, MRSA ( SPUTUM) Denies:: Cancer, Diabetes Mellitus Type 1, Diabetes Mellitus Type 2, Internal Pacemaker Other Medical History: Reports: Anemia, Arthritis, Fibromyalgia, Hypothyroidism , Thyroid Disease, Other Laterality Cases: Bilateral: Tonsillectomy Other Surgeries: Yes: Angioplasty, Cardiac Catheterization, Cholecystectomy, Colonoscopy, Dilation and Curettage, Hysterectomy-Total, Other. No: Pacemaker Amputation: No Fractures: No - *Social History Educational Level: Completed College Smoking Status: Former smoker Tobacco Type: cigarettes # Packs/Day (cigarettes): 1 #Yrs smoked (if former smoker): 20 Smoking End Date: 01/14/18 Alcohol Intake: never Alcohol Intake Frequency:: other Substance Use Type: denies use Occupational Status: employed Housing: house Household Members: family - Psychiatric History Expresses thoughts of harming self/others: None Suicide Plan Description: No Plan Pschychiatric History:: Reports:: Anxiety, Depression *Family Hx:: Anemia, Cancer, Coronary Artery Disease, Hyperlipidemia, Hypertension, Kidney Disease, Stroke, Thyroid Disorder, Tuberculosis Review of Systems - Constitutional Reports weakness, Denies fever(s) - Eyes Denies change in vision - ENT Reports post nasal drip, Denies nose pain - *Cardiovascular Reports shortness of breath, Denies chest pain at rest - *Respiratory Reports change in phlegm color, Reports chest congestion, Reports shortness of breath, Reports shortness of breath with activity, Reports excessive phlegm production - *Gastrointestinal Reports nausea, Denies vomiting - *Genitourinary Denies urinary urgency - *Musculoskeletal Denies joint pain - Integumentary/Breasts Denies rash - *Neurologic Denies abnormal movements - Psychiatric Denies anxiety - Endocrine Denies flushing Meds Home Medications Medication Instructions Recorded Confirmed Type estradiol 1 mg tablet 1 mg PO DAILY 10/09/17 01/30/18 History levothyroxine 75 mcg tablet 75 mcg PO DAILY tab 10/09/17 01/30/18 History losartan 50 mg tablet 50 mg PO DAILY 10/09/17 01/30/18 History metoclopramide 5 mg tablet 5 mg PO QID 10/09/17 01/30/18 History trazodone 50 mg tablet 50 mg PO HSP PRN 10/09/17 01/30/18 History dicyclomine 10 mg capsule 10 mg PO NEEDED PRN 10/16/17 01/30/18 History Gabapentin [Neurontin 600mg 600 mg PO QID 01/11/18 01/30/18 History tablet] Metoprolol Succinate 25 mg PO DAILY 01/11/18 01/30/18 History Potassium Chloride [Micro-K 10mEq 10 meq PO DAILY 01/11/18 01/30/18 History cap] Spironolactone [Aldactone 50mg Tab] 50 mg PO DAILY 01/11/18 01/30/18 History furosemide 40 mg tablet 40 mg PO DAILY tab 01/23/18 01/30/18 History Fluticasone Propionate [Flonase 2 spr NS DAILY 01/30/18 01/30/18 History 50mcg nasal spray 16gm] levoFLOXacin [Levaquin 500mg 500 mg PO DAILY 01/30/18 01/30/18 History tab] predniSONE [Prednisone 10mg Tab 10 mg PO UD DOSE PK 01/30/18 01/30/18 History Dose-Pack] Albuterol Sulfate [Albuterol HFA 1 - 2 puffs IH Q4-6H PRN 01/31/18 01/31/18 History Inhaler] Aspirin [Aspirin 81mg EC Tab] 81 mg PO DAILY 01/31/18 01/31/18 History Fluticasone/Vilanterol [Breo 1 puff IH DAILY 01/31/18 01/31/18 History Ellipta 100-25 Mcg INH] Hyoscyamine Sulfate 0.125 mg SL DAILYP PRN 01/31/18 01/31/18 History Omeprazole [Omeprazole 40mg 40 mg PO DAILY 01/31/18 01/31/18 History Capsule] Allergies Allergy/AdvReac Type Severity Reaction Status Date / Time Cephalosporins Allergy RASH Verified 01/30/18 16:49 erythromycin base Allergy Hives Verified 01/30/18 16:49 minocycline Allergy RASH Verified 01/30/18 16:49 penicillin G Allergy Hives Verified 01/30/18 16:49 Sulfa (Sulfonamide Allergy RASH Verified 01/30/18 16:49 Antibiotics) Exam Vital signs and Labs for Last 24 Hours: Temp Pulse Resp BP Pulse Ox 98.5 F 62 20 87/45 96 01/31/18 08:00 01/31/18 08:00 01/31/18 08:00 01/31/18 08:00 01/31/18 08:00 Laboratory Results - last 24 hr 01/30/18 17:05: Lactic Acid 0.9 01/31/18 06:30: WBC 9.7, RBC 3.07 L, Hgb 9.5 L D, Hct 28.6 L, MCV 93.5, MCH 30.9 , MCHC 33.1, RDW 15.1, Plt Count 342, MPV 8.5, Neut % (Auto) 66.0, Lymph % (Auto ) 25.4, [place] % (Auto) 6.5, Eos % (Auto) 1.6, Baso % (Auto) 0.5, Neut # (Auto) 6.4, Lymph # (Auto) 2.5, [place] # (Auto) 0.6, Eos # (Auto) 0.2, Baso # (Auto) 0.1 01/31/18 06:30: Sodium 145, Potassium 3.0 L, Chloride 110 H, Carbon Dioxide 28, Anion Gap 10.0, BUN 16 D, Creatinine 0.70 D, Estimated Creat Clear 141, Estimated GFR 86, Est GFR ( Amer) 104 D, Glucose 99 I & O for Last 24 hours: Intake & Output 01/28/18 01/29/18 01/30/18 01/31/18 11:59 11:59 11:59 11:59 Intake Total 924 / 924 Balance 924 / 924 Weight 222 lb 8 oz Microbiology Reports for the Last 24 Hours: Microbiology 01/30/18 18:45 Sputum - Expectorated Sputum Gram Stain - Final 01/30/18 18:45 Sputum - Expectorated Sputum Sputum Culture - Preliminary - Constitutional no acute distress - *Routine HEENT Exam Head: Present: normocephalic Eye: Present: PERRL ENT: Present: mucous membranes moist - *Routine Neck Exam Present: supple, full ROM - *Routine Respiratory Exam Present: rhonchi, wheezes - *Routine Cardiovascular Exam Present: RRR - *Routine Abdominal Exam Present: soft, normoactive bowel sounds - *Routine Extremities Exam Present: full ROM - *Routine Skin Exam Present: intact - *Routine Neurological Exam Present: alert, oriented X3 - Routine Psychiatric Exam Present: normal affect, normal thought process H&P: Result - Labs Labs: Short CBC 01/31/18 Range/Units 06:30 WBC 9.7 (4.8-10.8) K/mm3 Hgb 9.5 L D (12.2-16.2) g/dL Hct 28.6 L (37.0-47.0) % Plt Count 342 (142-424) K/mm3 [facility] 01/31/18 06:30 Sodium 145 Potassium 3.0 L Chloride 110 H Carbon Dioxide 28 BUN 16 D Creatinine 0.70 D Glucose 99 Assessment and Plan - Assessment and plan all Dx Assessment and Plan for all problems:: Change IV steroid dose, await final sputum culture, possible discharge in a.m. Rounded with Dr. Chairez all orders per Mihaela
--- NOTE | 2018-01-31 10:48 | Pharmacy Consult Notes ---
- Pharmacy Consult Date: 01/31/18 Time: 10:46 Referring provider: DR. PETERSON Reason for Consult:: VANCOMYCIN DOSING Allergies and ADEs:: Allergies Allergy/AdvReac Type Severity Reaction Status Date / Time Cephalosporins Allergy RASH Verified 01/30/18 16:49 erythromycin base Allergy Hives Verified 01/30/18 16:49 minocycline Allergy RASH Verified 01/30/18 16:49 penicillin G Allergy Hives Verified 01/30/18 16:49 Sulfa (Sulfonamide Allergy RASH Verified 01/30/18 16:49 Antibiotics) Home Medications:: Home Medications Medication Instructions Recorded Confirmed Type estradiol 1 mg tablet 1 mg PO DAILY 10/09/17 01/30/18 History levothyroxine 75 mcg tablet 75 mcg PO DAILY tab 10/09/17 01/30/18 History losartan 50 mg tablet 50 mg PO DAILY 10/09/17 01/30/18 History metoclopramide 5 mg tablet 5 mg PO QID 10/09/17 01/30/18 History trazodone 50 mg tablet 50 mg PO HSP PRN 10/09/17 01/30/18 History dicyclomine 10 mg capsule 10 mg PO NEEDED PRN 10/16/17 01/30/18 History Gabapentin [Neurontin 600mg 600 mg PO QID 01/11/18 01/30/18 History tablet] Metoprolol Succinate 25 mg PO DAILY 01/11/18 01/30/18 History Potassium Chloride [Micro-K 10mEq 10 meq PO DAILY 01/11/18 01/30/18 History cap] Spironolactone [Aldactone 50mg Tab] 50 mg PO DAILY 01/11/18 01/30/18 History furosemide 40 mg tablet 40 mg PO DAILY tab 01/23/18 01/30/18 History Fluticasone Propionate [Flonase 2 spr NS DAILY 01/30/18 01/30/18 History 50mcg nasal spray 16gm] levoFLOXacin [Levaquin 500mg 500 mg PO DAILY 01/30/18 01/30/18 History tab] predniSONE [Prednisone 10mg Tab 10 mg PO UD DOSE PK 01/30/18 01/30/18 History Dose-Pack] Albuterol Sulfate [Albuterol HFA 1 - 2 puffs IH Q4-6H PRN 01/31/18 01/31/18 History Inhaler] Aspirin [Aspirin 81mg EC Tab] 81 mg PO DAILY 01/31/18 01/31/18 History Fluticasone/Vilanterol [Breo 1 puff IH DAILY 01/31/18 01/31/18 History Ellipta 100-25 Mcg INH] Hyoscyamine Sulfate 0.125 mg SL DAILYP PRN 01/31/18 01/31/18 History Omeprazole [Omeprazole 40mg 40 mg PO DAILY 01/31/18 01/31/18 History Capsule] Height: 1.63 m Weight: 100.924 kg Laboratory Results:: Laboratory Results - last 24 hr 01/30/18 17:05: Lactic Acid 0.9 01/31/18 06:30: WBC 9.7, RBC 3.07 L, Hgb 9.5 L D, Hct 28.6 L, MCV 93.5, MCH 30.9 , MCHC 33.1, RDW 15.1, Plt Count 342, MPV 8.5, Neut % (Auto) 66.0, Lymph % (Auto ) 25.4, [place] % (Auto) 6.5, Eos % (Auto) 1.6, Baso % (Auto) 0.5, Neut # (Auto) 6.4, Lymph # (Auto) 2.5, [place] # (Auto) 0.6, Eos # (Auto) 0.2, Baso # (Auto) 0.1 01/31/18 06:30: Sodium 145, Potassium 3.0 L, Chloride 110 H, Carbon Dioxide 28, Anion Gap 10.0, BUN 16 D, Creatinine 0.70 D, Estimated Creat Clear 141, Estimated GFR 86, Est GFR ( Amer) 104 D, Glucose 99 Medical History: Reports:: Anxiety, Congestive Heart Failure, Coronary Artery Disease, Depression, Gastroesophageal Reflux Disease(GERD), Hypertension, MRSA ( SPUTUM) Denies:: Cancer, Diabetes Mellitus Type 1, Diabetes Mellitus Type 2, Internal Pacemaker Assessment and Plan - Assessment and plan all Dx Assessment and Plan for all problems:: BASED ON PATIENT FACTORS, RECOMMEND VANCOMYCIN 2 GM IV ONCE, FOLLOWED BY VANCOMYCIN 1750 MG IV Q12H. PHARMACY WILL FOLLOW DAILY AND ADJUST APPROPRIATE.
[2018-02-01 07:15] LABS: Basophils % 0.1 % (0.1-2.0); Eosinophils % 0.1 % (0.1-12.0); Hematocrit 33.5 % (37.0-47.0); Hemoglobin 10.7 g/dL (12.2-16.2); Lymphocytes # 1.1 K/mm3 (0.7-4.5); Lymphocytes % 6.6 K/mm3 (10-50); Mean Corpuscular Hemoglobin 30.5 pg (27.0-31.2); Mean Corpuscular Volume 95.1 fl (81-99); Mean Platelet Volume 7.5 fl (7.4-10.4); Monocytes # 0.2 K/mm3 (0.1-1.0); Monocytes % 1.3 % (1.7-9.3); Neutrophils # 14.5 K/mm3 (1.8-7.8); Neutrophils % 91.9 % (37.0-80.0); Platelet Count 345 K/mm3 (142-424); Red Blood Count 3.52 M/mm3 (4.20-5.40); Red Cell Distribution Width 14.4 % (11.5-17.5); White Blood Count 15.8 K/mm3 (4.8-10.8)
[2018-02-01 07:26] LABS: Albumin Level 2.9 gm/dL (3.4-5.0); Albumin/Globulin Ratio 0.7 (1.1-1.8); Anion Gap 15.7 mEq/L (5-15); Bilirubin,Total 0.2 mg/dL (0.2-1.0); Calcium 9.3 mg/dL (8.5-10.1); Globulin 4.2 gm/dl (1.3-3.2); Potassium 3.7 mmoL/L (3.5-5.1); Total Protein,Serum 7.1 gm/dL (6.4-8.2)
[2018-02-01 09:09] LABS: Lymphocytes % 2 % (10-50); Monocytes % 2 % (2-9); Neutrophils % 96 % (42-76); RBC Morphology Normal; Total Cells Counted 100
--- NOTE | 2018-02-01 10:40 | Pharmacy Consult Notes ---
- Pharmacy Consult Date: 02/01/18 Time: 10:38 Referring provider: DR. PETERSON Reason for Consult:: VANCOMYCIN TROUGH LEVEL Allergies and ADEs:: Allergies Allergy/AdvReac Type Severity Reaction Status Date / Time Cephalosporins Allergy RASH Verified 01/30/18 16:49 erythromycin base Allergy Hives Verified 01/30/18 16:49 minocycline Allergy RASH Verified 01/30/18 16:49 penicillin G Allergy Hives Verified 01/30/18 16:49 Sulfa (Sulfonamide Allergy RASH Verified 01/30/18 16:49 Antibiotics) Home Medications:: Home Medications Medication Instructions Recorded Confirmed Type estradiol 1 mg tablet 1 mg PO DAILY 10/09/17 01/30/18 History levothyroxine 75 mcg tablet 75 mcg PO DAILY tab 10/09/17 01/30/18 History losartan 50 mg tablet 50 mg PO DAILY 10/09/17 01/30/18 History metoclopramide 5 mg tablet 5 mg PO QID 10/09/17 01/30/18 History trazodone 50 mg tablet 50 mg PO HSP PRN 10/09/17 01/30/18 History dicyclomine 10 mg capsule 10 mg PO NEEDED PRN 10/16/17 01/30/18 History Gabapentin [Neurontin 600mg 600 mg PO QID 01/11/18 01/30/18 History tablet] Metoprolol Succinate 25 mg PO DAILY 01/11/18 01/30/18 History Potassium Chloride [Micro-K 10mEq 10 meq PO DAILY 01/11/18 01/30/18 History cap] Spironolactone [Aldactone 50mg Tab] 50 mg PO DAILY 01/11/18 01/30/18 History furosemide 40 mg tablet 40 mg PO DAILY tab 01/23/18 01/30/18 History Fluticasone Propionate [Flonase 2 spr NS DAILY 01/30/18 01/30/18 History 50mcg nasal spray 16gm] levoFLOXacin [Levaquin 500mg 500 mg PO DAILY 01/30/18 01/30/18 History tab] predniSONE [Prednisone 10mg Tab 10 mg PO UD DOSE PK 01/30/18 01/30/18 History Dose-Pack] Albuterol Sulfate [Albuterol HFA 1 - 2 puffs IH Q4-6H PRN 01/31/18 01/31/18 History Inhaler] Aspirin [Aspirin 81mg EC Tab] 81 mg PO DAILY 01/31/18 01/31/18 History Fluticasone/Vilanterol [Breo 1 puff IH DAILY 01/31/18 01/31/18 History Ellipta 100-25 Mcg INH] Hyoscyamine Sulfate 0.125 mg SL DAILYP PRN 01/31/18 01/31/18 History Omeprazole [Omeprazole 40mg 40 mg PO DAILY 01/31/18 01/31/18 History Capsule] Height: 1.63 m Weight: 103.504 kg Laboratory Results:: Laboratory Results - last 24 hr 02/01/18 06:50: Sodium 141, Potassium 3.7 D, Chloride 107, Carbon Dioxide 22 D , Anion Gap 15.7 H, BUN 15, Creatinine 0.80, Estimated Creat Clear 127, Estimated GFR 74, Est GFR ( Amer) 89, Glucose 201 H, Calcium 9.3, Total Bilirubin 0.2, AST 41 H, ALT 74 D, Alkaline Phosphatase 98, Total Protein 7.1, Albumin 2.9 L, Globulin 4.2 H, Albumin/Globulin Ratio 0.7 L 02/01/18 06:50: WBC 15.8 H D, RBC 3.52 L, Hgb 10.7 L, Hct 33.5 L, MCV 95.1, MCH 30.5, MCHC 32.0, RDW 14.4, Plt Count 345, MPV 7.5, Neut % (Auto) 91.9 H, Lymph % (Auto) 6.6 L, [place] % (Auto) 1.3 L, Eos % (Auto) 0.1, Baso % (Auto) 0.1, Neut # (Auto) 14.5 H, Lymph # (Auto) 1.1, [place] # (Auto) 0.2, Eos # (Auto) 0.0, Baso # (Auto) 0.0, Total Counted 100, Neutrophils % (Manual) 96 H, Lymphocytes % ( Manual) 2 L, Monocytes % (Manual) 2, Platelet Estimate Normal, RBC Morphology Normal 02/01/18 08:50: Vancomycin Trough 15.2 Medical History: Reports:: Anxiety, Congestive Heart Failure, Coronary Artery Disease, Depression, Gastroesophageal Reflux Disease(GERD), Hypertension, MRSA ( SPUTUM) Denies:: Cancer, Diabetes Mellitus Type 1, Diabetes Mellitus Type 2, Internal Pacemaker Assessment and Plan - Assessment and plan all Dx Assessment and Plan for all problems:: PATIENT'S VANCOMYCIN TROUGH WAS 15.2 MCG/ML THIS AM. RECOMMEND CONTINUING WITH CURRENT DOSE AND INTERVAL OF VANCOMYCIN 1750 MG Q12H AT THIS TIME. PHARMACY WILL FOLLOW DAILY AND ADJUST APPROPRIATE. TRESA OCHOA, PHARMD
--- NOTE | 2018-02-01 11:16 | Progress Note ---
Internal Medicine - PN: Subj *Date: 02/01/18 *Time: 11:12 Interval history: Patient was admitted 01/30/18 with JENNY pneumonia that failed to respond to outpatient Levaquin. Has history of refractory pneumonia, multiple antibiotic allergies, CHF. States she is feeling a little better. O2 has maintained above 90 without oxygen. She did not sleep well last night. Exam Vital signs and Labs for Last 24 Hours: Temp Pulse Resp BP Pulse Ox 98.7 F 76 18 112/45 96 02/01/18 07:47 02/01/18 07:47 02/01/18 07:47 02/01/18 07:47 02/01/18 07:47 Laboratory Results - last 24 hr 02/01/18 06:50: Sodium 141, Potassium 3.7 D, Chloride 107, Carbon Dioxide 22 D , Anion Gap 15.7 H, BUN 15, Creatinine 0.80, Estimated Creat Clear 127, Estimated GFR 74, Est GFR ( Amer) 89, Glucose 201 H, Calcium 9.3, Total Bilirubin 0.2, AST 41 H, ALT 74 D, Alkaline Phosphatase 98, Total Protein 7.1, Albumin 2.9 L, Globulin 4.2 H, Albumin/Globulin Ratio 0.7 L 02/01/18 06:50: WBC 15.8 H D, RBC 3.52 L, Hgb 10.7 L, Hct 33.5 L, MCV 95.1, MCH 30.5, MCHC 32.0, RDW 14.4, Plt Count 345, MPV 7.5, Neut % (Auto) 91.9 H, Lymph % (Auto) 6.6 L, [place] % (Auto) 1.3 L, Eos % (Auto) 0.1, Baso % (Auto) 0.1, Neut # (Auto) 14.5 H, Lymph # (Auto) 1.1, [place] # (Auto) 0.2, Eos # (Auto) 0.0, Baso # (Auto) 0.0, Total Counted 100, Neutrophils % (Manual) 96 H, Lymphocytes % ( Manual) 2 L, Monocytes % (Manual) 2, Platelet Estimate Normal, RBC Morphology Normal 02/01/18 08:50: Vancomycin Trough 15.2 I & O for Last 24 hours: Intake & Output 01/29/18 01/30/18 01/31/18 02/01/18 11:59 11:59 11:59 11:59 Intake Total 1404 / 1404 2135 / 2135 Balance 1404 / 1404 2135 / 2135 Weight 222 lb 8 oz 228 lb 3 oz Microbiology Reports for the Last 24 Hours: Microbiology 01/30/18 18:45 Sputum - Expectorated Sputum Gram Stain - Final 01/30/18 18:45 Sputum - Expectorated Sputum Sputum Culture - Preliminary 01/30/18 17:05 Blood Blood Culture - Preliminary NO GROWTH AFTER 24 HOURS 01/30/18 17:05 Blood Blood Culture - Preliminary NO GROWTH AFTER 24 HOURS Narrative: Patient states that she is feeling a little better. O2 has maintained above 90 without oxygen. She denies swelling. She does have a headache. - Constitutional no acute distress - *Routine HEENT Exam Head: Present: normocephalic Eye: Present: EOMI, PERRL ENT: Present: mucous membranes moist - *Routine Neck Exam Present: supple, full ROM - Routine Chest/Breast/Axilla Exam Chest wall: Absent: tenderness - *Routine Respiratory Exam Present: decreased breath sounds, wheezes (bilateral expiratory) - *Routine Cardiovascular Exam Present: RRR - *Routine Extremities Exam Present: normal capillary refill. Absent: cyanosis, edema, calf tenderness - *Routine Skin Exam Present: intact, dry. Absent: cyanosis, erythema - *Routine Neurological Exam Present: alert, oriented X3 - Routine Psychiatric Exam Present: normal affect, normal thought process Assessment and Plan (1) Pneumonia involving left lung Current visit: Yes Status: Acute Qualifiers: Pneumonia type: due to unspecified organism Lung location: upper lobe of lung Qualified Code(s): J18.1 - Lobar pneumonia, unspecified organism Category: Medical Code(s): J18.9 - Pneumonia, unspecified organism (2) CHF (congestive heart failure) Current visit: No Status: Acute Qualifiers: Heart failure type: diastolic Heart failure chronicity: chronic Qualified Code(s): I50.32 - Chronic diastolic (congestive) heart failure Category: Medical Code(s): I50.9 - Heart failure, unspecified The patient's infection will respond to the chosen ABx?: Yes Is the patient receiving the right drug, dose, and route?: Yes Could a more targeted ABx be ordered?: No 10
[2018-02-02 06:53] LABS: Basophils % 0.1 % (0.1-2.0); Eosinophils % 0.2 % (0.1-12.0); Hematocrit 32.1 % (37.0-47.0); Hemoglobin 10.4 g/dL (12.2-16.2); Lymphocytes # 1.5 K/mm3 (0.7-4.5); Lymphocytes % 8.1 K/mm3 (10-50); Mean Corpuscular HGB Conc 32.3 g/dL (31.8-35.4); Mean Corpuscular Hemoglobin 30.3 pg (27.0-31.2); Mean Corpuscular Volume 93.8 fl (81-99); Mean Platelet Volume 7.5 fl (7.4-10.4); Monocytes # 0.3 K/mm3 (0.1-1.0); Monocytes % 1.9 % (1.7-9.3); Neutrophils # 16.5 K/mm3 (1.8-7.8); Neutrophils % 89.8 % (37.0-80.0); Platelet Count 340 K/mm3 (142-424); Red Blood Count 3.42 M/mm3 (4.20-5.40); Red Cell Distribution Width 14.6 % (11.5-17.5); White Blood Count 18.4 K/mm3 (4.8-10.8)
[2018-02-02 07:08] LABS: Albumin Level 2.8 gm/dL (3.4-5.0); Albumin/Globulin Ratio 0.7 (1.1-1.8); Bilirubin,Total 0.2 mg/dL (0.2-1.0); Calcium 9.3 mg/dL (8.5-10.1); Globulin 3.9 gm/dl (1.3-3.2); Lymphocytes % 6 % (10-50); Monocytes % 1 % (2-9); Neutrophils % 84 % (42-76); RBC Morphology Normal; Total Cells Counted 100; Total Protein,Serum 6.7 gm/dL (6.4-8.2)
--- NOTE | 2018-02-02 23:05 | Progress Note ---
Internal Medicine - PN: Subj *Date: 02/02/18 *Time: 15:00 Interval history: doing better with still cough - Exam Vital signs and Labs for Last 24 Hours: Temp Pulse Resp BP Pulse Ox 98.3 F 67 16 129/53 98 02/02/18 20:00 02/02/18 20:00 02/02/18 20:00 02/02/18 20:00 02/02/18 20:00 Laboratory Results - last 24 hr 02/02/18 06:10: Sodium 142, Potassium 4.0, Chloride 109 H, Carbon Dioxide 24, Anion Gap 13.0, BUN 18, Creatinine 0.80, Estimated Creat Clear 131, Estimated GFR 74, Est GFR ( Amer) 89, Glucose 143 H D, Calcium 9.3, Total Bilirubin 0.2, AST 27 D, ALT 58, Alkaline Phosphatase 88, Total Protein 6.7, Albumin 2.8 L, Globulin 3.9 H, Albumin/Globulin Ratio 0.7 L 02/02/18 06:10: WBC 18.4 H, RBC 3.42 L, Hgb 10.4 L, Hct 32.1 L, MCV 93.8, MCH 30.3, MCHC 32.3, RDW 14.6, Plt Count 340, MPV 7.5, Neut % (Auto) 89.8 H, Lymph % (Auto) 8.1 L, [place] % (Auto) 1.9, Eos % (Auto) 0.2, Baso % (Auto) 0.1, Neut # ( Auto) 16.5 H, Lymph # (Auto) 1.5, [place] # (Auto) 0.3, Eos # (Auto) 0.0, Baso # ( Auto) 0.0, Total Counted 100, Neutrophils % (Manual) 84 H, Band Neutrophils % 9.0 H, Lymphocytes % (Manual) 6 L, Monocytes % (Manual) 1 L, Platelet Estimate Normal, RBC Morphology Normal I & O for Last 24 hours: Intake & Output 01/31/18 02/01/18 02/02/18 02/03/18 11:59 11:59 11:59 11:59 Intake Total 1404 / 1404 2136 / 2136 2512 / 2512 800 / 800 Balance 1404 / 1404 2136 / 2136 2512 / 2512 800 / 800 Weight 222 lb 8 oz 228 lb 3 oz 235 lb 5 oz Microbiology Reports for the Last 24 Hours: Microbiology 01/30/18 17:05 Blood Blood Culture - Preliminary NO GROWTH AFTER 72 HOURS 01/30/18 17:05 Blood Blood Culture - Preliminary NO GROWTH AFTER 72 HOURS 01/30/18 18:45 Sputum - Expectorated Sputum Gram Stain - Final 01/30/18 18:45 Sputum - Expectorated Sputum Sputum Culture - Final Normal Respiratory Chloé - Constitutional no acute distress - *Routine HEENT Exam Head: Present: normocephalic Eye: Present: EOMI, PERRL ENT: Present: mucous membranes dry - *Routine Neck Exam Present: supple - *Routine Respiratory Exam Present: rhonchi. Absent: respiratory distress - *Routine Cardiovascular Exam Present: RRR - *Routine Abdominal Exam Present: soft - *Routine Extremities Exam Present: edema. Absent: calf tenderness - *Routine Skin Exam Present: intact - *Routine Neurological Exam Present: alert, oriented X3, CN II-XII intact - Routine Psychiatric Exam Present: normal affect Assessment and Plan (1) Pneumonia involving left lung Current visit: Yes Status: Acute Qualifiers: Pneumonia type: due to unspecified organism Lung location: upper lobe of lung Qualified Code(s): J18.1 - Lobar pneumonia, unspecified organism Category: Medical Code(s): J18.9 - Pneumonia, unspecified organism (2) CHF (congestive heart failure) Current visit: No Status: Acute Qualifiers: Heart failure type: diastolic Heart failure chronicity: chronic Qualified Code(s): I50.32 - Chronic diastolic (congestive) heart failure Category: Medical Code(s): I50.9 - Heart failure, unspecified 10
[2018-02-03 07:42] VITALS: BP 127/62
--- NOTE | 2018-02-03 07:50 | Progress Note ---
Internal Medicine - PN: Subj *Date: 02/03/18 *Time: 07:49 Exam Vital signs and Labs for Last 24 Hours: Temp Pulse Resp BP Pulse Ox 97.9 F 67 18 127/62 98 02/03/18 07:41 02/03/18 07:41 02/03/18 07:41 02/03/18 07:41 02/03/18 07:41 I & O for Last 24 hours: Intake & Output 01/31/18 02/01/18 02/02/18 02/03/18 23:59 23:59 23:59 23:59 Intake Total 2123 2612615 211 / 2111 730 / 730 Balance 2123 / 2612111 / 2111 730 / 730 Weight 100.924 kg 103.504 kg 106.736 kg 105.914 kg Microbiology Reports for the Last 24 Hours: Microbiology 01/30/18 17:05 Blood Blood Culture - Preliminary NO GROWTH AFTER 72 HOURS 01/30/18 17:05 Blood Blood Culture - Preliminary NO GROWTH AFTER 72 HOURS 01/30/18 18:45 Sputum - Expectorated Sputum Gram Stain - Final 01/30/18 18:45 Sputum - Expectorated Sputum Sputum Culture - Final Normal Respiratory Chloé Assessment and Plan (1) Pneumonia involving left lung Current visit: Yes Status: Acute Qualifiers: Pneumonia type: due to unspecified organism Lung location: upper lobe of lung Qualified Code(s): J18.1 - Lobar pneumonia, unspecified organism Category: Medical Code(s): J18.9 - Pneumonia, unspecified organism (2) CHF (congestive heart failure) Current visit: No Status: Acute Qualifiers: Heart failure type: diastolic Heart failure chronicity: chronic Qualified Code(s): I50.32 - Chronic diastolic (congestive) heart failure Category: Medical Code(s): I50.9 - Heart failure, unspecified The patient's infection will respond to the chosen ABx?: Yes Is the patient receiving the right drug, dose, and route?: Yes Could a more targeted ABx be ordered?: No (OUTPATIENT VANCOMYCIN X10 DAYS) 10
--- NOTE | 2018-02-03 08:09 | Discharge Summary ---
General - General Admission date:: 01/30/18 Discharge date: 02/03/18 HPI HPI: 57-year-old female presents to the ER with complaints of shortness of breath and coughing up green sputum. Patient was seen by PCP chest x-ray was ordered results left upper lobe pneumonia. Patient has been on Levaquin as an outpatient and failed outpatient treatment. Patient has history of frequent pneumonia, with history of MRSA in sputum, and has multiple allergies. She is admitted for pneumonia for IV antibiotics, IV steroids and sputum culture to identify organism. Hospital Course Hospital Course: pt did well with ivf and abx and steroids with resp treatment - DINGS: There is cardiomegaly without failure. The previously noted CHF with bilateral lower lobe airspace disease has improved. There is a new patchy area of consolidation in the left perihilar region consistent with pneumonia. No effusions. No acute bony anomalies. IMPRESSION: 1. Left upper lobe pneumonia. pt with elevated wbc which was felt to be related to illness and steroids - she will need to finish course of abx Objective Vital signs: Temp Pulse Resp BP Pulse Ox 97.9 F 67 18 127/62 98 02/03/18 07:41 02/03/18 07:41 02/03/18 07:41 02/03/18 07:41 02/03/18 07:41 no acute distress - *Routine HEENT Exam Head: Present: normocephalic Eye: Present: EOMI, PERRL ENT: Present: mucous membranes dry - *Routine Neck Exam Present: supple - *Routine Respiratory Exam Present: prolonged expiratory phase, wheezes. Absent: respiratory distress - *Routine Cardiovascular Exam Present: RRR, murmur - *Routine Abdominal Exam Present: soft - *Routine Extremities Exam Absent: calf tenderness - *Routine Skin Exam Present: intact - *Routine Neurological Exam Present: alert, oriented X3, CN II-XII intact - Routine Psychiatric Exam Present: normal affect Results Labs on day of discharge: Preliminary micro results at discharge 01/30/18 17:05 Blood Culture - Preliminary Blood NO GROWTH AFTER 72 HOURS 01/30/18 17:05 Blood Culture - Preliminary Blood NO GROWTH AFTER 72 HOURS DS: Diagnosis - Discharge Diagnosis (1) Pneumonia involving left lung Status: Acute (2) CHF (congestive heart failure) Status: Acute (3) Anemia Status: Acute Discharge Plan - Patient Discharge Instructions ACTIVITY: Continue current activity DIET: continue same diet Additional Instructions: will do iv vancomycin with pic line till 02/09/18 - Follow up Plan Disposition: Home, Self-Long-Term Medications: Home Medications Medication Instructions Recorded Confirmed Type estradiol 1 mg tablet 1 mg PO DAILY 10/09/17 01/30/18 History levothyroxine 75 mcg tablet 75 mcg PO DAILY tab 10/09/17 01/30/18 History losartan 50 mg tablet 50 mg PO DAILY 10/09/17 01/30/18 History metoclopramide 5 mg tablet 5 mg PO QID 10/09/17 01/30/18 History trazodone 50 mg tablet 50 mg PO HSP PRN 10/09/17 01/30/18 History dicyclomine 10 mg capsule 10 mg PO NEEDED PRN 10/16/17 01/30/18 History Gabapentin [Neurontin 600mg 600 mg PO QID 01/11/18 01/30/18 History tablet] Metoprolol Succinate 25 mg PO DAILY 01/11/18 01/30/18 History Potassium Chloride [Micro-K 10mEq 10 meq PO DAILY 01/11/18 01/30/18 History cap] Spironolactone [Aldactone 50mg Tab] 50 mg PO DAILY 01/11/18 01/30/18 History furosemide 40 mg tablet 40 mg PO DAILY tab 01/23/18 01/30/18 History Fluticasone Propionate [Flonase 2 spr NS DAILY 01/30/18 01/30/18 History 50mcg nasal spray 16gm] levoFLOXacin [Levaquin 500mg 500 mg PO DAILY 01/30/18 01/30/18 History tab] predniSONE [Prednisone 10mg Tab 10 mg PO UD DOSE PK 01/30/18 01/30/18 History Dose-Pack] Albuterol Sulfate [Albuterol HFA 1 - 2 puffs IH Q4-6H PRN 01/31/18 01/31/18 History Inhaler] Aspirin [Aspirin 81mg EC Tab] 81 mg PO DAILY 01/31/18 01/31/18 History Fluticasone/Vilanterol [Breo 1 puff IH DAILY 01/31/18 01/31/18 History Ellipta 100-25 Mcg INH] Hyoscyamine Sulfate 0.125 mg SL DAILYP PRN 01/31/18 01/31/18 History Omeprazole [Omeprazole 40mg 40 mg PO DAILY 01/31/18 01/31/18 History Capsule] Prescriptions/Medication Reconciliation: New Aspirin [Aspirin 81mg EC Tab] 81 mg PO DAILY tablet. Fluticasone/Vilanterol [Breo Ellipta 100-25 Mcg INH] 1 inh INHALATION DAILY Temazepam [Restoril 15mg capsule] 15 mg PO HSP PRN capsule PRN Reason: Sleep predniSONE [Prednisone 20mg Tab] 20 mg PO DAILY #10 tab Continue estradiol 1 mg tablet 1 mg PO DAILY levothyroxine 75 mcg tablet 75 mcg PO DAILY tab losartan 50 mg tablet 50 mg PO DAILY metoclopramide 5 mg tablet 5 mg PO QID trazodone 50 mg tablet 50 mg PO HSP PRN PRN Reason: Sleep dicyclomine 10 mg capsule 10 mg PO NEEDED PRN PRN Reason: IBS furosemide 40 mg tablet 40 mg PO DAILY tab Spironolactone [Aldactone 50mg Tab] 50 mg PO DAILY Potassium Chloride [Micro-K 10mEq cap] 10 meq PO DAILY Metoprolol Succinate 25 mg PO DAILY Gabapentin [Neurontin 600mg tablet] 600 mg PO QID Promethazine HCl [Phenergan 12.5mg tablet] 12.5 mg PO Q8H PRN #10 tab PRN Reason: Nausea Fluticasone Propionate [Flonase 50mcg nasal spray 16gm] 2 spr NS DAILY Albuterol Sulfate [Albuterol HFA Inhaler] 1 - 2 puffs IH Q4-6H PRN PRN Reason: Shortness Of Breath Or Wheezing Omeprazole [Omeprazole 40mg Capsule] 40 mg PO DAILY Hyoscyamine Sulfate 0.125 mg SL DAILYP PRN PRN Reason: IBS Fluticasone/Vilanterol [Breo Ellipta 100-25 Mcg INH] 1 puff IH DAILY Aspirin [Aspirin 81mg EC Tab] 81 mg PO DAILY Discontinued predniSONE [Prednisone 10mg Tab Dose-Pack] 10 mg PO UD DOSE PK levoFLOXacin [Levaquin 500mg tab] 500 mg PO DAILY
== END 2018-02-03 13:20 | disposition home or self-care (01) ==
LOC: ER 16:28 → 2ND 16:28 → OBSVTOIN 18:39 → 2ND 18:40
PROVIDERS: ADMIT Emergency Medicine; ATTEND Emergency Medicine

== ENCOUNTER → 2018-02-03 21:08 | Outpatient (CLI) | payer BC, SELFPAY ==
[2018-02-03 21:33] VITALS: BMI 37.4
[2018-02-03 23:52] VITALS: BP 138/74; PULSE 60; RESP 18; O2SAT 96
== END ==
PROVIDERS: PCP Nurse Practitioner Family; Visit Provider Emergency Medicine
DX: J18.9 Pneumonia, unspecified organism (principal)
CPT/HCPCS: 96365; 96366; 96415; J3370

== ENCOUNTER → 2018-02-04 09:05 | Outpatient (CLI) | payer BC, SELFPAY ==
[2018-02-04 09:32] VITALS: BP 139/64; PULSE 52; RESP 18; TEMP 36.4; O2SAT 99
[2018-02-04 10:02] VITALS: BP 136/62; PULSE 51; RESP 18; O2SAT 98
[2018-02-04 10:32] VITALS: BP 129/60; PULSE 54; RESP 18; O2SAT 99
[2018-02-04 11:02] VITALS: BP 128/62; PULSE 55; RESP 18; O2SAT 98
[2018-02-04 11:32] VITALS: BP 131/64; PULSE 54; RESP 18; O2SAT 98
[2018-02-04 11:40] VITALS: BP 130/62; PULSE 53; RESP 18; O2SAT 99
[2018-02-04 21:05] VITALS: BMI 36.5
== END ==
PROVIDERS: PCP Nurse Practitioner Family; Visit Provider Emergency Medicine
DX: J18.1 Lobar pneumonia, unspecified organism (principal)
CPT/HCPCS: 96365; 96366; 96367; G0463; J3370

== ENCOUNTER 2018-02-05 09:30 | Outpatient (CLI) | payer BC, SELFPAY ==
[2018-02-04 21:05] VITALS: BP 145/68; PULSE 59; RESP 20; TEMP 36.7; O2SAT 96
[2018-02-05 09:51] VITALS: BMI 37.4
[2018-02-05 10:37] LABS: Anion Gap 12.2 mEq/L (5-15); Blood Urea Nitrogen 16 mg/dL (7-18); Carbon Dioxide 27 mmol/L (21.0-32.0); Chloride 109 mmol/L (98-107); Creatinine Clearance Estimated 138 mL/min (0-300); Estimated Glomerular Filt Rate 86 ml/min (>60); GFR (African American) 104 ML/MIN (>60); Glucose 100 mg/dL (74-106); Potassium 3.2 mmoL/L (3.5-5.1); Sodium 145 mmol/L (136-145)
[2018-02-05 10:39] LABS: Vancomycin,Trough 21.6 mcg/ml (10.0-20.0)
[2018-02-05 10:45] VITALS: BP 122/70; PULSE 68; RESP 20; TEMP 36.4; O2SAT 96
--- NOTE | 2018-02-05 11:36 | P.CONPHA_ITS ---
- Pharmacy Consult Date: 02/05/18 Time: 11:34 Referring provider: DR. PETERSON Reason for Consult:: VANCOMYCIN TROUGH LEVEL AND DOSE CHANGE Allergies and ADEs:: Allergies Allergy/AdvReac Type Severity Reaction Status Date / Time Cephalosporins Allergy RASH Verified 01/30/18 16:49 erythromycin base Allergy Hives Verified 01/30/18 16:49 minocycline Allergy RASH Verified 01/30/18 16:49 penicillin G Allergy Hives Verified 01/30/18 16:49 Sulfa (Sulfonamide Allergy RASH Verified 01/30/18 16:49 Antibiotics) Home Medications:: Home Medications Medication Instructions Recorded Confirmed Type estradiol 1 mg tablet 1 mg PO DAILY 10/09/17 01/30/18 History levothyroxine 75 mcg tablet 75 mcg PO DAILY tab 10/09/17 01/30/18 History losartan 50 mg tablet 50 mg PO DAILY 10/09/17 01/30/18 History metoclopramide 5 mg tablet 5 mg PO QID 10/09/17 01/30/18 History trazodone 50 mg tablet 50 mg PO HSP PRN 10/09/17 01/30/18 History dicyclomine 10 mg capsule 10 mg PO NEEDED PRN 10/16/17 01/30/18 History Gabapentin [Neurontin 600mg 600 mg PO QID 01/11/18 01/30/18 History tablet] Metoprolol Succinate 25 mg PO DAILY 01/11/18 01/30/18 History Potassium Chloride [Micro-K 10mEq 10 meq PO DAILY 01/11/18 01/30/18 History cap] Spironolactone [Aldactone 50mg Tab] 50 mg PO DAILY 01/11/18 01/30/18 History furosemide 40 mg tablet 40 mg PO DAILY tab 01/23/18 01/30/18 History Fluticasone Propionate [Flonase 2 spr NS DAILY 01/30/18 01/30/18 History 50mcg nasal spray 16gm] Albuterol Sulfate [Albuterol HFA 1 - 2 puffs IH Q4-6H PRN 01/31/18 01/31/18 History Inhaler] Aspirin [Aspirin 81mg EC Tab] 81 mg PO DAILY 01/31/18 01/31/18 History Fluticasone/Vilanterol [Breo 1 puff IH DAILY 01/31/18 01/31/18 History Ellipta 100-25 Mcg INH] Hyoscyamine Sulfate 0.125 mg SL DAILYP PRN 01/31/18 01/31/18 History Omeprazole [Omeprazole 40mg 40 mg PO DAILY 01/31/18 01/31/18 History Capsule] Height: 1.63 m Weight: 98.883 kg Laboratory Results:: Laboratory Results - last 24 hr 02/05/18 09:45: Sodium 145, Potassium 3.2 L, Chloride 109 H, Carbon Dioxide 27, Anion Gap 12.2, BUN 16, Creatinine 0.70, Estimated Creat Clear 138, Estimated GFR 86, Est GFR ( Amer) 104, Glucose 100, Vancomycin Trough 21.6 H Medical History: Reports:: Anxiety, Congestive Heart Failure, Coronary Artery Disease, Depression, Gastroesophageal Reflux Disease(GERD), Hypertension, MRSA ( SPUTUM) Denies:: Cancer, Diabetes Mellitus Type 1, Diabetes Mellitus Type 2, Internal Pacemaker Assessment and Plan - Assessment and plan all Dx Assessment and Plan for all problems:: BASED ON PATIENT'S VANCOMYCIN TROUGH LEVEL 21.6 MCG/ML , RECOMMEND HOLDING TONIGHT'S DOSE OF VANCOMYCIN. WILL RESTART TOMORROW AM AT REDUCED DOSE OF 1500 MG Q12H. TRESA OCHOA, PHARMD
[2018-02-05 11:40] VITALS: BP 122/70; PULSE 68; RESP 20; TEMP 36.4; O2SAT 96
== END 2018-02-05 11:40 | disposition home or self-care (01) ==
LOC: INF 09:41
PROVIDERS: PCP Nurse Practitioner Family; Visit Provider Emergency Medicine
DX: J18.1 Lobar pneumonia, unspecified organism (principal)
CPT/HCPCS: 80048; 80202; 96365; 96366; J3370

== ENCOUNTER → 2018-02-06 09:05 | Outpatient (CLI) | payer BC, SELFPAY ==
[2018-02-06 10:34] VITALS: BP 125/64; PULSE 70; RESP 18; TEMP 36.5; O2SAT 96; BMI 39.6
[2018-02-06 11:10] VITALS: BP 130/60; PULSE 74; RESP 18; TEMP 36.6; O2SAT 97
[2018-02-06 21:24] VITALS: BP 113/61; PULSE 74; RESP 20; TEMP 36.7; O2SAT 96
[2018-02-06 21:27] VITALS: BMI 87.4
[2018-02-06 21:30] VITALS: BP 113/61; PULSE 74; RESP 20; TEMP 36.7; O2SAT 96
[2018-02-06 22:50] VITALS: BP 93/56; PULSE 58; RESP 20; TEMP 36.7; O2SAT 92
== END ==
PROVIDERS: PCP Nurse Practitioner Family; Visit Provider Emergency Medicine
DX: J18.9 Pneumonia, unspecified organism (principal)
CPT/HCPCS: 96365; 96366; J3370

== ENCOUNTER → 2018-02-07 10:40 | Outpatient (CLI) | payer BC, SELFPAY ==
[2018-02-07] VITALS (9 sets, daily range): BP systolic 98–130; BP diastolic 46–69; PULSE 50–76; RESP 18; TEMP 36.4–36.9; O2SAT 96–98; BMI 39.6
[2018-02-07 11:23] LABS: Creatinine Clearance Estimated 96 mL/min (0-300); Creatinine,Serum 1.07 mg/dL (0.55-1.02); Estimated Glomerular Filt Rate 53 ml/min (>60); GFR (African American) 64 ML/MIN (>60)
[2018-02-07 11:29] LABS: Vancomycin,Trough 20.2 mcg/ml (10.0-20.0)
--- NOTE | 2018-02-07 11:58 | P.CONPHA_ITS ---
- Pharmacy Consult Date: 02/07/18 Time: 11:56 Referring provider: DR. PETERSON Reason for Consult:: VANCOMYCIN TROUGH LEVEL AND DOSE CHANGE Allergies and ADEs:: Allergies Allergy/AdvReac Type Severity Reaction Status Date / Time Cephalosporins Allergy RASH Verified 02/06/18 10:33 erythromycin base Allergy Hives Verified 02/06/18 10:33 minocycline Allergy RASH Verified 02/06/18 10:33 penicillin G Allergy Hives Verified 02/06/18 10:33 Sulfa (Sulfonamide Allergy RASH Verified 02/06/18 10:33 Antibiotics) Home Medications:: Home Medications Medication Instructions Recorded Confirmed Type estradiol 1 mg tablet 1 mg PO DAILY 10/09/17 02/06/18 History levothyroxine 75 mcg tablet 75 mcg PO DAILY tab 10/09/17 02/06/18 History losartan 50 mg tablet 50 mg PO DAILY 10/09/17 02/06/18 History metoclopramide 5 mg tablet 5 mg PO QID 10/09/17 02/06/18 History dicyclomine 10 mg capsule 10 mg PO NEEDED PRN 10/16/17 02/06/18 History Metoprolol Succinate 25 mg PO DAILY 01/11/18 02/06/18 History Potassium Chloride [Micro-K 10mEq 10 meq PO DAILY 01/11/18 02/06/18 History cap] Spironolactone [Aldactone 50mg Tab] 50 mg PO DAILY 01/11/18 02/06/18 History furosemide 40 mg tablet 40 mg PO DAILY tab 01/23/18 02/06/18 History Fluticasone Propionate [Flonase 2 spr NS DAILY 01/30/18 02/06/18 History 50mcg nasal spray 16gm] Albuterol Sulfate [Albuterol HFA 1 - 2 puffs IH Q4-6H PRN 01/31/18 02/06/18 History Inhaler] Aspirin [Aspirin 81mg EC Tab] 81 mg PO DAILY 01/31/18 02/06/18 History Fluticasone/Vilanterol [Breo 1 puff IH DAILY 01/31/18 02/06/18 History Ellipta 100-25 Mcg INH] Hyoscyamine Sulfate 0.125 mg SL DAILYP PRN 01/31/18 02/06/18 History Omeprazole [Omeprazole 40mg 40 mg PO DAILY 01/31/18 02/06/18 History Capsule] predniSONE [Prednisone 20mg 20 mg PO DAILY 02/05/18 02/06/18 History Tab] Height: 1.63 m Weight: 104.78 kg Laboratory Results:: Laboratory Results - last 24 hr 02/07/18 10:54: Creatinine 1.07 H D, Estimated Creat Clear 96, Estimated GFR 53 L, Est GFR ( Amer) 64 D, Vancomycin Trough 20.2 H Medical History: Reports:: Anxiety, Congestive Heart Failure, Coronary Artery Disease, Depression, Gastroesophageal Reflux Disease(GERD), Hypertension, MRSA ( SPUTUM) Denies:: Cancer, Diabetes Mellitus Type 1, Diabetes Mellitus Type 2, Internal Pacemaker Assessment and Plan - Assessment and plan all Dx Assessment and Plan for all problems:: BASED ON PATIENT'S TROUGH LEVEL OF 20.1 MCG/ML, RECOMMEND PATIENT CHANGE DOSE FROM VANCOMYCIN 1500 MG Q12 TO 2000 MG Q24H. PHARMACY WILL FOLLOW DAILY AND ADJUST APPROPRIATE. TRESA OCHOA, JAYCEED
--- NOTE | 2018-02-07 14:30 | PC.NURSE ---
Rodolfo sequeira called about change of vanc to 2g daily starting tomorrow 02/08/18 at noon.
== END ==
PROVIDERS: PCP Nurse Practitioner Family; Visit Provider Emergency Medicine
DX: J18.9 Pneumonia, unspecified organism (principal)
CPT/HCPCS: 80202; 82565; 96365; 96366; G0463; J3370

== ENCOUNTER 2018-02-08 12:39 | Outpatient (CLI) | payer BC, SELFPAY ==
[2018-02-08 12:57] VITALS: BP 123/73; PULSE 66; RESP 18; TEMP 36.7; O2SAT 97
== END 2018-02-08 14:25 | disposition home or self-care (01) ==
LOC: INF 12:40
PROVIDERS: PCP Nurse Practitioner Family; Visit Provider Emergency Medicine
DX: J18.9 Pneumonia, unspecified organism (principal)
CPT/HCPCS: 96365; 96366; J3370

== ENCOUNTER 2018-02-09 12:45 | Outpatient (CLI) | payer BC, SELFPAY ==
[2018-02-09 13:03] VITALS: BP 114/45; PULSE 59; RESP 18; TEMP 36.9; O2SAT 95
[2018-02-09 14:37] VITALS: BP 108/37; PULSE 56; RESP 18; TEMP 36.9; O2SAT 95
== END 2018-02-09 14:41 | disposition home or self-care (01) ==
LOC: INF 12:46
PROVIDERS: PCP Nurse Practitioner Family; Visit Provider Emergency Medicine
DX: J18.9 Pneumonia, unspecified organism (principal)
CPT/HCPCS: 96365; J3370

== ENCOUNTER 2018-02-11 14:25 | Outpatient (CLI) | payer BC, SELFPAY ==
[2018-02-11 15:25] VITALS: BP 122/70; PULSE 66; RESP 20; TEMP 36.9; O2SAT 96
== END 2018-02-11 15:25 | disposition home or self-care (01) ==
LOC: INF 14:44
PROVIDERS: PCP Nurse Practitioner Family; Visit Provider Emergency Medicine
DX: J18.9 Pneumonia, unspecified organism (principal); Z48.00 Encounter for change or removal of nonsurgical wound dressing
CPT/HCPCS: 96523

== ENCOUNTER → 2018-02-17 15:53 | Outpatient (REF) | payer BC, SELFPAY | LOC: LAB 15:53 | PROVIDERS: Visit Provider Nurse Practitioner Family | DX: R05 Cough (principal) | CPT/HCPCS: 87070; 87205 ==

== ENCOUNTER → 2018-02-18 12:28 | Outpatient (POV) | payer BC, SELFPAY | PROVIDERS: PCP Nurse Practitioner Family; Visit Provider Internal Medicine | DX: Z00.00 Encounter for general adult medical examination without abnormal findings (principal) ==

== ENCOUNTER 2018-02-18 13:12 | Outpatient (CLI) | payer BC, SELFPAY ==
[2018-02-18 13:13] VITALS: BMI 38.0
[2018-02-18 14:11] LABS: D-Dimer 469 ng/mL (0-400)
[2018-02-20 16:23] LABS: IgG, Subclass 1 412 mg/dL (248-810); IgG, Subclass 2 223 mg/dL (130-555); IgG, Subclass 3 24 mg/dL (15-102); Immunoglobulin G, Qn 700 mg/dL (700-1600)
[2018-02-20 21:15] LABS: IgG, Subclass 4 28 mg/dL (2-96)
== END 2018-02-18 13:40 | disposition home or self-care (01) ==
LOC: INF 13:12
PROVIDERS: PCP Nurse Practitioner Family; Visit Provider Internal Medicine
DX: J18.9 Pneumonia, unspecified organism (principal); Z83.1 Family history of other infectious and parasitic diseases; Z87.891 Personal history of nicotine dependence; M79.89 Other specified soft tissue disorders
CPT/HCPCS: 82784; 82787; 85378; 86480; G0463

== ENCOUNTER → 2018-02-20 08:35 | Outpatient (CLI) | payer BC, SELFPAY ==
--- NOTE | 2018-02-20 | NVE_ITS ---
Venous Exam Indications: 729.81 Swelling of limb. IMPRESSIONS 1. No evidence of deep or superficial vein thrombosis involving the right lower extremity 2. No evidence of deep or superficial vein thrombosis involving the left lower extremity Complete lower extremity venous duplex evaluation. Doppler flow study including spectral analysis, color and moseley scale imaging. Location: Vascular laboratory. Patient status: Outpatient. Tables: Venous flow and imaging: + +-------+ + Location Overall Flow properties + +-------+ + Right common femoral Patent Normal phasicity; spontaneous; normal augmentation; compressible + +-------+ + Right saphenofemoral junction Patent Compressible + +-------+ + Right profunda femoral Patent Compressible + +-------+ + Right femoral Patent Normal phasicity; spontaneous; normal augmentation; compressible + +-------+ + Right greater saphenous Patent Normal phasicity; spontaneous; normal augmentation; compressible + +-------+ + Right popliteal Patent Normal phasicity; spontaneous; normal augmentation; compressible + +-------+ + Right posterior tibial Patent Compressible + +-------+ + Right peroneal Patent Compressible + +-------+ + Right gastrocnemius Patent Compressible + +-------+ + Right soleal Patent Compressible + +-------+ + Left common femoral Patent Normal phasicity; spontaneous; normal augmentation; compressible + +-------+ + Left saphenofemoral junction Patent Compressible + +-------+ + Left profunda femoral Patent Compressible + +-------+ + Left femoral Patent Normal phasicity; spontaneous; normal augmentation; compressible + +-------+ + Left greater saphenous Patent Normal phasicity; spontaneous; normal augmentation; compressible + +-------+ + Left popliteal Patent Normal phasicity; spontaneous; normal augmentation; compressible + +-------+ + Left pos
--- NOTE | 2018-02-20 08:40 | CT_ITS ---
CT lung screening EXAM: CT LUNG LOW DOSE WO CONTRAST COMPARISON: 10/16/2017 HISTORY: 57-year-old female with greater than 30 pack-year smoking history asymptomatic ITS.REASON: HX TOBACCO USE ORDERING PHYSICIAN: Ezio Castillo MD PATIENT AGE: 57 years TECHNIQUE: The exam was performed on a GE Light Speed [address] scanner using 2.9 mGy CTDI. A low dose helical CT CHEST was performed on a multi-detector scanner. All CT scans at the facility use one or more dose reduction, viz: automated exposure control; ma/kV adjustment per patient size (including targeted exams where dose is matched to indication; i.e. head); or iterative reconstruction technique. The LDCT was performed in a facility that meets the criteria for the screening program. Data regarding this exam was submitted to [employer] which is an approved registry. The order for this exam indicates that it came as a result of a lung cancer screening counseling shard decision-making visit that included all the elements required of such a visit including smoking cessation. The radiologist interpreting this exam meets the CMS criteria for the LDCT lung cancer screening program. The exam is reported using the Lung-RADS classification scale and reported to the [employer] registry. NOTE: This study was performed for the specific purposes of lung cancer screening and is not an alternative to diagnostic chest CT. RADIATION DOSE: CTDI vol(CT dose Index-volume) = 2.9mG DLP (Dose Length Product) = 113.21 mGcm FINDINGS: There is a noncalcified 4 mm nodule in the right upper lobe semisolid. An additional noncalcified semisolid nodules present in the right upper lobe inferiorly.. These are unchanged. No new nodules are evident. Calcified granuloma right lung base Mild cardiomegaly. Scattered small lymph nodes are present in the mediastinum unchanged there is mild coarsening of bronchovascular markings which may be related to smoking-related lung disease. IMPRESSION: 1. Lung RADS Category: 2, benign no significant change 2. Other findings: Cardiomegaly with coarsening of the bronchovascular markings RECOMMENDATIONS: 12 month screening LDCT follow-up
== END ==
PROVIDERS: PCP Nurse Practitioner Family; Visit Provider Internal Medicine
DX: M79.89 Other specified soft tissue disorders (principal); Z87.891 Personal history of nicotine dependence; Z12.2 Encounter for screening for malignant neoplasm of respiratory organs; J18.9 Pneumonia, unspecified organism
CPT/HCPCS: 93970

== ENCOUNTER → 2018-02-25 07:40 | Outpatient (CLI) | payer BC, SELFPAY ==
[2018-02-25 11:29] LABS: Ferritin 77 ng/mL (8-388)
[2018-02-26 05:13] LABS: Iron 42 ug/dL (27-159); UIBC 286 ug/dL (131-425)
[2018-02-26 06:38] LABS: Iron Saturation 13 % (15-55)
== END ==
PROVIDERS: Nurse Practitioner Family; Visit Provider Emergency Medicine
DX: Z13.0 Encounter for screening for diseases of the blood and blood-forming organs and certain disorders involving the immune mechanism (principal)
CPT/HCPCS: 36415; 82728; 83550

== ENCOUNTER → 2018-05-06 09:52 | Outpatient (REF) | payer BC, SELFPAY ==
[2018-05-06 14:12] LABS: Amphetamine/Metha Screen,Urine Negative ng/mL (<1000); Barbiturates Screen,Urine Negative ng/mL (<200); Benzodiazepines Screen,Urine Negative ng/mL (<200); Cannabinoid Screen,Urine Negative ng/mL (<50); Cocaine Screen,Urine Negative ng/mL (<300); Methadone Screen,Urine Negative ng/mL (<300); Opiate Screen,Urine Positive ng/mL (<300); Phencyclidine Screen,Urine Negative ng/mL (<25)
== END ==
LOC: LAB 09:52
PROVIDERS: Visit Provider Nurse Practitioner Family
DX: M79.7 Fibromyalgia (principal)
CPT/HCPCS: 80305

== ENCOUNTER → 2018-05-16 09:12 | Outpatient (CLI) | payer BC, SELFPAY ==
--- NOTE | 2018-05-16 09:15 | XR_ITS ---
XR hip RT 2-3V w/pelvis HISTORY: Right hip pain, pain ITS.REASON: pain ORDERING PHYSICIAN: Sadie Mathis PATIENT AGE: 57 years COMPARISON: None FINDINGS: No fracture or dislocation is evident. No significant degenerative change. No lytic or blastic change. Unremarkable soft tissues IMPRESSION: Negative hip
--- NOTE | 2018-05-16 09:15 | XR_ITS ---
EXAM: XR lumbar spine 2-3V HISTORY: ITS.REASON: pain ORDERING PHYSICIAN: Sadie Mathis PATIENT AGE: 57 years COMPARISON: None FINDINGS: Normal alignment. Facet arthritic changes are present at L4-L5 and L5-S1. The disc spaces are well-preserved. No acute fracture or dislocation. No lytic or blastic change IMPRESSION: Facet arthritic change at L4-5 and L5-S1 otherwise negative lumbar spine
== END ==
PROVIDERS: PCP Emergency Medicine; Visit Provider Nurse Practitioner Family
DX: M25.551 Pain in right hip (principal); M54.5 Low back pain
CPT/HCPCS: 72100; 73502

== ENCOUNTER 2018-05-23 11:35 | Inpatient (IN) ==
--- NOTE | 2018-05-23 12:03 | Emergency Department Note ---
ED Disposition Clinical Impression: Elevated troponin, Hypokalemia Community acquired pneumonia Qualifiers: Laterality: right Lung location: lower lobe of lung Qualified Code(s): J18.1 - Lobar pneumonia, unspecified organism Disposition: Still a Patient Condition on Discharge: Fair Referrals: Zeke Chairez MD [Primary Care Provider] - - Critical Care Critical Care Time: No Attestation: On 05/23/18, the high probability of a clinically significant, sudden or life threatening deterioration of the following system(s) required my full and direct attention, intervention and personal management. The time I documented below is in addition to time spent performing reported procedures but includes the following listed in this critical care notation. Medical Decision Making - Adolph Inquiry Pt receiving controlled substance: No Vital Signs: 05/23/18 11:42 05/23/18 12:03 05/23/18 12:49 Temperature 98.4 F Temperature Source Oral Pulse Rate Pulse Rate [Left Radial] 78 81 75 Respiratory Rate 20 Blood Pressure [Right Arm] 122/69 122/69 110/63 Blood Pressure Mean [Right Arm] 86 86 78 Blood Pressure Source [Right Arm] Automatic Cuff Automatic Cuff Automatic Cuff Blood Pressure Position [Right Arm] Sitting Sitting Sitting 02 Sat by Pulse Oximetry 99 96 97 Oxygen Delivery Method Room Air Oxygen Flow Rate (LPM) 05/23/18 13:13 05/23/18 13:14 Temperature Temperature Source Pulse Rate 79 Pulse Rate [Left Radial] 84 Respiratory Rate Blood Pressure [Right Arm] 112/60 Blood Pressure Mean [Right Arm] 77 Blood Pressure Source [Right Arm] Manual Cuff/ Doppler Blood Pressure Position [Right Arm] Sitting 02 Sat by Pulse Oximetry 98 95 Oxygen Delivery Method Nasal Cannula Oxygen Flow Rate (LPM) 2 - Lab Data Lab Results 05/23/18 11:49: WBC 33.3 H*, RBC 3.81 L, Hgb 11.9 L, Hct 36.3 L, MCV 95.1, MCH 31.1, MCHC 32.7, RDW 15.0, Plt Count 484 H, MPV 7.7, Neut % (Auto) 92.2 H, Lymph % (Auto) 4.6 L, [place] % (Auto) 2.9, Eos % (Auto) 0.2, Baso % (Auto) 0.1, Neut # (Auto) 30.7 H, Lymph # (Auto) 1.5, [place] # (Auto) 1.0, Eos # (Auto) 0.1, Baso # (Auto) 0.0, Total Counted 100, Neutrophils % (Manual) 88 H, Band Neutrophils % 1.0, Lymphocytes % (Manual) 9 L, Monocytes % (Manual) 2, Platelet Estimate Slight increase, RBC Morphology Normal 05/23/18 11:49: Sodium 145, Potassium 2.8 L*, Chloride 108 H, Carbon Dioxide 24 , Anion Gap 15.8 H, BUN 11, Creatinine 1.11 H, Estimated Creat Clear 2, Estimated GFR 51 L, Est GFR ( Amer) 61, Glucose 127 H, Calcium 9.7, Troponin I 0.32 H 05/23/18 11:49: B-Natriuretic Peptide 417 H Result diagrams: 05/23/18 11:49 05/23/18 11:49 Orders (Tests/Meds): ED MEDICATIONS Generic Name Dose Route Start Last Admin Trade Name Freq PRN Reason Stop Dose Admin Levofloxacin/Dextrose 750 mg in 150 mls @ 100 mls/hr 05/23/18 12:45 05/23/18 13:11 Levofloxacin 750mg/150ml Premix IV 06/06/18 12:44 Not Given Q24H [facility] Protocol Miscellaneous 1 each 05/23/18 13:15 05/23/18 13:13 Vancomycin Consult Request * 06/22/18 13:14 1 each CONSULT PHARMACY [facility] Administration Discontinued Medications Generic Name Dose Route Start Last Admin Trade Name Freq PRN Reason Stop Dose Admin Albuterol/Ipratropium 3 ml 05/23/18 12:06 05/23/18 13:06 Duoneb 3ml Neb IH 05/23/18 12:07 3 ml ONCE ONE Administration Aspirin 243 mg 05/23/18 12:41 05/23/18 13:01 Aspirin 81mg Chewable Tablet PO 05/23/18 12:42 243 mg ONCE ONE Administration Ketorolac Tromethamine 30 mg 05/23/18 12:41 05/23/18 13:01 Toradol 30mg/Ml Vial IV 05/23/18 12:42 30 mg ONCE ONE Administration Methylprednisolone Sodium Succinate 125 mg 05/23/18 12:06 05/23/18 13:00 Solu-Medrol 125mg/2ml Vial IV 05/23/18 12:07 125 mg ONCE ONE Administration Potassium Chloride 60 meq 05/23/18 12:33 05/23/18 13:01 Klor-Con 20meq Tablet PO 05/23/18 12:34 60 meq ONCE ONE Administration ORDERS Category Date Time Status Lactic Acid Stat Lab 05/23/18 13:15 Ordered Blood Culture Stat Micro 05/23/18 13:16 Ordered - Radiology Data #1 Image(s): Chest Image Reviewed: Yes I discussed the image results w/the radiologist Pneumonia right base - ECG Data Tracing #1 EKG interpreted by Adria Gillis MD: Rhythm: sinus Rate: 88 [place]: normal Ectopy: none Conduction: normal ST Segment Changes: Nonspecific T Wave Changes: Nonspecific Q Waves: none No evidence of acute ischemia or injury - Physician Consults Physician Consulted: Mihaela present Time: 12:59 Reason -: Admission Comment/Response: Agrees to admit the patient to the hospital. We discussed the patient's clinical information, including history, exam, laboratory and radiology results and ED course. Per hospital procedure, I will write temporary bridge inpatient orders on the patient. Specific orders requested by the admitting physician: Cardiogram, antibiotics, nebulizer treatments and steroids, serial cardiac enzymes - TAMAR Score for Non-STEMI Age of patient: Less than 65 yrs Number of risk factors for CAD: Presence of 3 or more Prior coronary artery stenosis(seen in coronary angiography): 50% or more ST-Segment deviation on ECG (more than 1 min): Absent Prior aspirin intake: ASA intake in the last 7 days Severe anginal chest pain: No or one episode in last 24 hours Elevated cardiac markers(CK-MB or troponin): Present Non-Stemi Risk Score: 4 Medical Decision Narrative: Recently treated for sciatica at her primary care, given injection of Decadron and started on prednisone which she finished 2 days ago. 1:15 PM: Patient declines Levaquin and states she gets vancomycin. Discussed with Dr. Chairez. He confirms that her pneumonia is generally sensitive to vancomycin and approves that treatment. General Adult HPI - General Chief complaint: Shortness of Breath/Dyspnea Stated complaint: soa, tight chest Time Seen by Provider: 05/23/18 12:01 Mode of Arrival: Ambulatory Limitations: No Limitations Description of Symptoms (Recalled from ER Triage Doc. by RN): Pt was opening some chlorine tablet and states she inhaled the powder residure from the tablets. About an hour after she was at [facility] and felt really lightheaded and dizzy and unable to catch her breath. 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 She has been getting progressively short of breath since then. She has used her albuterol inhaler a couple of times without improvement. Prior to this she was not sick. She says she is not diagnosed with either COPD or asthma, just congestive heart failure. She is a smoker. - Related Data Home Medications Medication Instructions Recorded Confirmed estradiol 1 mg tablet 1 mg PO DAILY 10/09/17 05/23/18 losartan 50 mg tablet 50 mg PO DAILY 10/09/17 05/23/18 metoclopramide 5 mg tablet 5 mg PO QID 10/09/17 05/23/18 dicyclomine 10 mg capsule 10 mg PO NEEDED PRN 10/16/17 05/23/18 Metoprolol Succinate 25 mg PO DAILY 01/11/18 05/23/18 Potassium Chloride [Micro-K 10mEq 10 meq PO DAILY 01/11/18 05/23/18 cap] Spironolactone [Aldactone 50mg Tab] 50 mg PO DAILY 01/11/18 05/23/18 furosemide 40 mg tablet 40 mg PO DAILY tab 01/23/18 05/23/18 Fluticasone Propionate [Flonase 2 spr NS DAILY 01/30/18 05/23/18 50mcg nasal spray 16gm] Aspirin [Aspirin 81mg EC Tab] 81 mg PO DAILY 01/31/18 05/23/18 Hyoscyamine Sulfate 0.125 mg SL DAILYP PRN 01/31/18 05/23/18 Previous Rx's Medication Instructions Recorded albuterol sulfate HFA 90 2 inh INHALATION Q4-6H PRN #6.7 g 05/06/18 mcg/actuation aerosol inhaler gabapentin 800 mg tablet 800 mg PO QID #120 tab 05/06/18 levothyroxine 75 mcg tablet 75 mcg PO DAILY #30 tab 05/06/18 omeprazole 40 mg capsule,delayed 40 mg PO DAILY #30 cap 05/06/18 release trazodone 100 mg tablet 200 mg PO QHS PRN #60 tab 05/06/18 Allergies Allergy/AdvReac Type Severity Reaction Status Date / Time Cephalosporins Allergy RASH Verified 05/16/18 08:34 erythromycin base Allergy Hives Verified 05/16/18 08:34 minocycline Allergy RASH Verified 05/16/18 08:34 penicillin G Allergy Hives Verified 05/16/18 08:34 Sulfa (Sulfonamide Allergy RASH Verified 05/16/18 08:34 Antibiotics) [facility] History I have reviewed the patient's past medical history: Yes Medical History: Reports:: Anxiety, Congestive Heart Failure, Coronary Artery Disease, Depression, Gastroesophageal Reflux Disease(GERD), Hypertension, MRSA Denies:: Diabetes Mellitus Type 1, Diabetes Mellitus Type 2 Other Medical History: Reports: Anemia, Arthritis, Fibromyalgia, Hypothyroidism , Thyroid Disease, Other Comment: SLEEP APNEA Laterality Cases: Bilateral: Tonsillectomy Other Surgeries: Yes: Angioplasty, Cardiac Catheterization, Cholecystectomy, Colonoscopy, Dilation and Curettage, Hysterectomy-Total, Other Amputation: No Fractures: No Comment: GALLBLADDER,2 CYSTS REMOVED FROM RIGHT SHOULDER - Social History Smoking Status: Current every day smoker Tobacco Type: cigarettes # Packs/Day (cigarettes): 1 #Yrs smoked (if former smoker): 20 Alcohol Intake: never Alcohol Intake Frequency:: other Substance Use Type: denies use Occupational Status: employed Housing: house Household Members: family - Psychiatric History Expresses thoughts of harming self/others: None Suicide Plan Description: No Plan Pschychiatric History:: Reports:: Anxiety, Depression Family Hx:: Anemia, Cancer, Coronary Artery Disease, Hyperlipidemia, Hypertension, Kidney Disease, Stroke, Thyroid Disorder, Tuberculosis ROS Obtained: Yes All systems reviewed & no additional complaints - Constitutional Constitutional: Denies fever(s) - Cardiovascular Cardiovascular: Denies chest pain - Respiratory Respiratory: Yes dyspnea - Neurologic Neurologic: Reports headache(s) Physical Exam - General General appearance: alert, in no apparent distress - Head Head exam: atraumatic, normocephalic, normal inspection - Eye Eye exam: Present: normal appearance, PERRL, EOMI - ENT ENT exam: Present: normal exam, normal oropharynx, mucous membranes moist, TM's normal bilaterally, normal external ear exam - Neck Neck exam: Present: normal inspection, full ROM, trachea midline. Absent: meningismus, lymphadenopathy - Chest Chest inspection: Present: normal inspection, symmetric chest wall rise. Absent : tenderness - Respiratory Respiratory exam: Present: wheezes. Absent: respiratory distress - Cardiovascular Cardiovascular exam: Present: regular rate, normal rhythm. Absent: JVD - Abdominal Exam Abdominal exam: Present: soft, normal bowel sounds. Absent: distention, tenderness, guarding - Extremities Exam Extremities exam: Present: normal inspection, full ROM, normal capillary refill. Absent: calf tenderness - Back Exam Back exam: Present: normal inspection. Absent: tenderness - Neurological Exam Neurological exam: Present: alert, oriented X3 - Psychiatric Psychiatric exam: Present: anxious - Skin Skin exam: Present: warm, dry, intact, normal color
[2018-05-23 12:04] LABS: Basophils % 0.1 % (0.1-2.0); Eosinophils # 0.1 K/mm3 (0.0-0.4); Eosinophils % 0.2 % (0.1-12.0); Hematocrit 36.3 % (37.0-47.0); Hemoglobin 11.9 g/dL (12.2-16.2); Lymphocytes # 1.5 K/mm3 (0.7-4.5); Lymphocytes % 4.6 K/mm3 (10-50); Mean Corpuscular HGB Conc 32.7 g/dL (31.8-35.4); Mean Corpuscular Hemoglobin 31.1 pg (27.0-31.2); Mean Corpuscular Volume 95.1 fl (81-99); Mean Platelet Volume 7.7 fl (7.4-10.4); Monocytes % 2.9 % (1.7-9.3); Neutrophils # 30.7 K/mm3 (1.8-7.8); Neutrophils % 92.2 % (37.0-80.0); Platelet Count 484 K/mm3 (142-424); Red Blood Count 3.81 M/mm3 (4.20-5.40); White Blood Count 33.3 K/mm3 (4.8-10.8)
[2018-05-23 12:27] LABS: Anion Gap 15.8 mEq/L (5-15); Calcium 9.7 mg/dL (8.5-10.1)
[2018-05-23 12:31] LABS: Lymphocytes % 9 % (10-50); Monocytes % 2 % (2-9); Neutrophils % 88 % (42-76); Potassium 2.8 mmoL/L (3.5-5.1); RBC Morphology Normal; Total Cells Counted 100
--- NOTE | 2018-05-23 14:32 | History & Physical Report ---
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 She has been getting progressively short of breath since then. She has used her albuterol inhaler a couple of times without improvement. Prior to this she was not sick. She says she is not diagnosed with either COPD or asthma, just congestive heart failure. She is a smoker. pt was noted to have cap on xray and element of pneumonitis and was admitted - also had elevated troponin in the ed and was seen by misti valverde since age 25, 1 ppd at least 2. IBS, diarrhea predominant, followed by GI 3. Chronic pancreatitis, previous workup by GI 4. HTN, treated for 5 yrs 5. Status post cholecystectomy, hysterectomy due to endometriosis and pelvic inflammatory disease 6. Chronic back pain with chronic pain medication 7. Hypothyroidism 8. Congestive heart failure, 05/2017 A. Right and left heart catheterization, 06/12/17, mild nonocclusive coronary artery disease. Mild pulmonary hypertension. No evidence of intra- cardiopulmonary shunt. Congestive heart failure felt secondary to diastolic dysfunction with improvement after 6 L diuresis overnight. History of present illness: Per Dr. 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 She has been getting progressively short of breath since then. She has used her albuterol inhaler a couple of times without improvement. Prior to this she was not sick. She says she is not diagnosed with either COPD or asthma, just congestive heart failure. She is a smoker. Workup in the ER revealed elevated troponin. Cardiology consulted for evaluation and recommendations. EKG shows sinus rhythm with some nonspecific ST-T abnormalities consistent with previous tracings. Chest x-ray shows a right sided pneumonia. Patient has a elevated white count at 33,000. evated troponin but doubt acute coronary syndrome. EKG is without acute ST segment changes. Patient with right-sided pneumonia and elevated white count with recent chlorine inhalation which likely is the culprit for right heart strain and elevated troponin. 2. Continue to treat pulmonary issues. 3. No further cardiac workup at this time. Please let us know if her clinical course changes. [facility] History I have reviewed the patient's past medical history: Yes Medical History: Reports:: Anxiety, Congestive Heart Failure, Coronary Artery Disease, Depression, Gastroesophageal Reflux Disease(GERD), Hypertension, MRSA Denies:: Diabetes Mellitus Type 1, Diabetes Mellitus Type 2 Other Medical History: Reports: Anemia, Arthritis, Fibromyalgia, Hypothyroidism , Thyroid Disease, Other Laterality Cases: Bilateral: Tonsillectomy Other Surgeries: Yes: Angioplasty, Cardiac Catheterization, Cholecystectomy, Colonoscopy, Dilation and Curettage, Hysterectomy-Total, Other Amputation: No Fractures: No - *Social History Smoking Status: Current every day smoker Tobacco Type: cigarettes # Packs/Day (cigarettes): 1 #Yrs smoked (if former smoker): 20 Alcohol Intake: never Alcohol Intake Frequency:: other Substance Use Type: denies use Occupational Status: employed Housing: house Household Members: family - Psychiatric History Expresses thoughts of harming self/others: None Suicide Plan Description: No Plan Pschychiatric History:: Reports:: Anxiety, Depression *Family Hx:: Anemia, Cancer, Coronary Artery Disease, Hyperlipidemia, Hypertension, Kidney Disease, Stroke, Thyroid Disorder, Tuberculosis Review of Systems - Review of Systems Review of systems:: pertinent systems reviewed and negative unless documented below - Constitutional Denies fever(s) - Eyes Denies change in vision - ENT Denies sore throat - *Cardiovascular Reports chest pain, Reports shortness of breath - *Respiratory Reports cough - *Gastrointestinal Denies abdominal pain - *Genitourinary Denies blood in urine - *Musculoskeletal Denies joint pain - Integumentary/Breasts Denies rash - *Neurologic Reports headache(s) - Psychiatric Reports anxiety Meds Home Medications Medication Instructions Recorded Confirmed Type estradiol 1 mg tablet 1 mg PO DAILY 10/09/17 05/23/18 History losartan 50 mg tablet 50 mg PO DAILY 10/09/17 05/23/18 History metoclopramide 5 mg tablet 5 mg PO QID 10/09/17 05/23/18 History dicyclomine 10 mg capsule 10 mg PO NEEDED PRN 10/16/17 05/23/18 History Metoprolol Succinate 25 mg PO DAILY 01/11/18 05/23/18 History Potassium Chloride [Micro-K 10mEq 10 meq PO DAILY 01/11/18 05/23/18 History cap] Spironolactone [Aldactone 50mg Tab] 50 mg PO DAILY 01/11/18 05/23/18 History furosemide 40 mg tablet 40 mg PO DAILY tab 01/23/18 05/23/18 History Fluticasone Propionate [Flonase 2 spr NS DAILY 01/30/18 05/23/18 History 50mcg nasal spray 16gm] Aspirin [Aspirin 81mg EC Tab] 81 mg PO DAILY 01/31/18 05/23/18 History Hyoscyamine Sulfate 0.125 mg SL DAILYP PRN 01/31/18 05/23/18 History Allergies Allergy/AdvReac Type Severity Reaction Status Date / Time Cephalosporins Allergy RASH Verified 05/16/18 08:34 erythromycin base Allergy Hives Verified 05/16/18 08:34 minocycline Allergy RASH Verified 05/16/18 08:34 penicillin G Allergy Hives Verified 05/16/18 08:34 Sulfa (Sulfonamide Allergy RASH Verified 05/16/18 08:34 Antibiotics) Exam Vital signs and Labs for Last 24 Hours: Temp Pulse Resp BP Pulse Ox 98.4 F 76 20 109/59 95 05/23/18 11:42 05/23/18 14:14 05/23/18 11:42 05/23/18 14:14 05/23/18 14:14 Laboratory Results - last 24 hr 05/23/18 11:49: WBC 33.3 H*, RBC 3.81 L, Hgb 11.9 L, Hct 36.3 L, MCV 95.1, MCH 31.1, MCHC 32.7, RDW 15.0, Plt Count 484 H, MPV 7.7, Neut % (Auto) 92.2 H, Lymph % (Auto) 4.6 L, [place] % (Auto) 2.9, Eos % (Auto) 0.2, Baso % (Auto) 0.1, Neut # (Auto) 30.7 H, Lymph # (Auto) 1.5, [place] # (Auto) 1.0, Eos # (Auto) 0.1, Baso # (Auto) 0.0, Total Counted 100, Neutrophils % (Manual) 88 H, Band Neutrophils % 1.0, Lymphocytes % (Manual) 9 L, Monocytes % (Manual) 2, Platelet Estimate Slight increase, RBC Morphology Normal 05/23/18 11:49: Sodium 145, Potassium 2.8 L*, Chloride 108 H, Carbon Dioxide 24 , Anion Gap 15.8 H, BUN 11, Creatinine 1.11 H, Estimated Creat Clear 2, Estimated GFR 51 L, Est GFR ( Amer) 61, Glucose 127 H, Calcium 9.7, Troponin I 0.32 H 05/23/18 11:49: B-Natriuretic Peptide 417 H 05/23/18 13:00: Lactate 1.3 I & O for Last 24 hours: Intake & Output 05/21/18 05/22/18 05/23/18 05/24/18 11:59 11:59 11:59 11:59 Weight 5 lb 4 oz 223 lb - Constitutional no acute distress, obese - *Routine HEENT Exam Head: Present: normocephalic Eye: Present: EOMI, PERRL ENT: Present: mucous membranes dry - *Routine Neck Exam Present: supple. Absent: JVD - *Routine Respiratory Exam Present: distant breath sounds. Absent: respiratory distress - *Routine Cardiovascular Exam Present: RRR, murmur - *Routine Abdominal Exam Present: soft - *Routine Extremities Exam Present: edema. Absent: calf tenderness - *Routine Skin Exam Present: intact - *Routine Neurological Exam Present: alert, oriented X3, CN II-XII intact - Routine Psychiatric Exam Present: normal affect Assessment and Plan (1) CAP (community acquired pneumonia) Current visit: Yes Status: Acute Qualifiers: Laterality: right Lung location: lower lobe of lung Qualified Code(s): J18.1 - Lobar pneumonia, unspecified organism Category: Medical Code(s): J18.9 - Pneumonia, unspecified organism (2) Elevated troponin Current visit: Yes Status: Acute Category: Medical Code(s): R74.8 - Abnormal levels of other serum enzymes (3) Hypokalemia Current visit: Yes Status: Acute Category: Medical Code(s): E87.6 - Hypokalemia
--- NOTE | 2018-05-23 14:57 | Cardiology Report ---
PROCEDURE: 2-D M-mode and color Doppler study INDICATIONS FOR THE TEST: Chest painX COPDX Heart Murmur Tobacco Smoking Palpitations Fatigue Syncope Edema HypertensionXDiabetes Mellitus Rheumatic Fever SOBXDOEXObesityXHyperlipidemia Family History HD Additional History H/O CHF,CAD,MRSA PATIENT INFORMATION HEIGHT: 64 WEIGHT:223 GENDER: Female B/P:110/63 2-D/M-MODE INTERPRETATION: 2-D MEASUREMENTS OBSERVED VALUES IN CMS Right Ventricular Dimension (RVDd) 2.3 Interventricular Septum (Thickness)(IVsd) 1.2 Left Ventricular Internal Dimensions(LVIDd) 5.6 Left Ventricular Posterior Wall (Thickness)(LVPWd) 1.0 Aortic Root 3.4 Aortic Cusp Separation 1.8 Left Atrial Dimensions (LAD) 3.6 2D 1. Left atrium is mildly enlarged, left ventricle is normal size, mild concentric left ventricular hypertrophy present, visually estimated ejection fraction of 55% with no obvious regional wall motion abnormality. 2. The right atrium and right ventricle are moderately enlarged, contractility of the right ventricle is present. 3. The aortic valve is minimally thickened and fibrosed. 4. The mitral and tricuspid valve leaflets are minimally thickened. 5. The pulmonic valve is poorly visualized. 6. No significant pericardial effusion noted. DOPPLER INTERROGATION: Doppler interrogation of the aortic, mitral and tricuspid valvular presence of mild mitral and tricuspid regurgitation, calculated right ventricular systolic pressure is 63 mmHg consistent with moderate pulmonary hypertension, grade 1 diastolic dysfunction seen without tissue Doppler evidence of raised left atrial pressure, inferior vena cava is normal size with normal inspiratory collapse. CONCLUSION: 1. Mildly enlarged left atrium, normal left ventricular size, mild concentric left ventricular hypertrophy, visually estimated ejection fraction 55% with no obvious regional wall motion abnormality, grade 1 diastolic dysfunction seen without tissue Doppler evidence of raised left atrial pressure. 2. Moderately enlarged right ventricle with preserved contractility. 3. Mild mitral and tricuspid regurgitation, calculated right ventricular systolic pressure is 63 mmHg consistent with moderate pulmonary hypertension, inferior vena cava is normal size with normal collapsed. 4. No significant pericardial effusion noted.
--- NOTE | 2018-05-23 15:22 | Consult Report ---
History of Present Illness Consult date: 05/23/18 Requesting physician: Zeke Chairez Consult reason: shortness of breath Chief complaint: Elevated troponin Additional Medical History:: 1. Tobacco use since age 25, 1 ppd at least 2. IBS, diarrhea predominant, followed by GI 3. Chronic pancreatitis, previous workup by GI 4. HTN, treated for 5 yrs 5. Status post cholecystectomy, hysterectomy due to endometriosis and pelvic inflammatory disease 6. Chronic back pain with chronic pain medication 7. Hypothyroidism 8. Congestive heart failure, 05/2017 A. Right and left heart catheterization, 06/12/17, mild nonocclusive coronary artery disease. Mild pulmonary hypertension. No evidence of intra- cardiopulmonary shunt. Congestive heart failure felt secondary to diastolic dysfunction with improvement after 6 L diuresis overnight. History of present illness: Per Dr. 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 She has been getting progressively short of breath since then. She has used her albuterol inhaler a couple of times without improvement. Prior to this she was not sick. She says she is not diagnosed with either COPD or asthma, just congestive heart failure. She is a smoker. Workup in the ER revealed elevated troponin. Cardiology consulted for evaluation and recommendations. EKG shows sinus rhythm with some nonspecific ST-T abnormalities consistent with previous tracings. Chest x-ray shows a right sided pneumonia. Patient has a elevated white count at 33,000. [facility] History Medical History: Reports:: Anxiety, Congestive Heart Failure, Coronary Artery Disease, Depression, Gastroesophageal Reflux Disease(GERD), Hypertension, MRSA Denies:: Cancer, Diabetes Mellitus Type 1, Diabetes Mellitus Type 2 Other Medical History: Reports: Anemia, Arthritis, Fibromyalgia, Hypothyroidism, Thyroid Disease, Other Laterality Cases: Bilateral: Tonsillectomy Other Surgeries: Yes: Angioplasty, Cardiac Catheterization, Cholecystectomy, Colonoscopy, Dilation and Curettage, Hysterectomy-Total, Other Amputation: No Fractures: No - *Social History Educational Level: Completed College Smoking Status: Current every day smoker Tobacco Type: cigarettes # Packs/Day (cigarettes): 1 #Yrs smoked (if former smoker): 20 Alcohol Intake: never Alcohol Intake Frequency:: other Substance Use Type: denies use Occupational Status: employed Housing: house Household Members: family - Psychiatric History Expresses thoughts of harming self/others: None Suicide Plan Description: No Plan Pschychiatric History:: Reports:: Anxiety, Depression *Family Hx:: Anemia, Cancer, Coronary Artery Disease, Hyperlipidemia, Hypertension, Kidney Disease, Stroke, Thyroid Disorder, Tuberculosis Meds Home Medications Medication Instructions Recorded Confirmed Type estradiol 1 mg tablet 1 mg PO DAILY 10/09/17 05/23/18 History losartan 50 mg tablet 50 mg PO DAILY 10/09/17 05/23/18 History metoclopramide 5 mg tablet 5 mg PO QID 10/09/17 05/23/18 History dicyclomine 10 mg capsule 10 mg PO NEEDED PRN 10/16/17 05/23/18 History Metoprolol Succinate 25 mg PO DAILY 01/11/18 05/23/18 History Potassium Chloride [Micro-K 10mEq 10 meq PO DAILY 01/11/18 05/23/18 History cap] Spironolactone [Aldactone 50mg Tab] 50 mg PO DAILY 01/11/18 05/23/18 History furosemide 40 mg tablet 40 mg PO DAILY tab 01/23/18 05/23/18 History Fluticasone Propionate [Flonase 2 spr NS DAILY 01/30/18 05/23/18 History 50mcg nasal spray 16gm] Aspirin [Aspirin 81mg EC Tab] 81 mg PO DAILY 01/31/18 05/23/18 History Hyoscyamine Sulfate 0.125 mg SL DAILYP PRN 01/31/18 05/23/18 History Allergies Allergy/AdvReac Type Severity Reaction Status Date / Time Cephalosporins Allergy RASH Verified 05/16/18 08:34 erythromycin base Allergy Hives Verified 05/16/18 08:34 minocycline Allergy RASH Verified 05/16/18 08:34 penicillin G Allergy Hives Verified 05/16/18 08:34 Sulfa (Sulfonamide Allergy RASH Verified 05/16/18 08:34 Antibiotics) Review of Systems - *Cardiovascular Reports shortness of breath, Reports shortness of breath with activity, Denies chest pain - *Respiratory Reports cough, Reports shortness of breath, Reports shortness of breath with activity - *Gastrointestinal Denies abdominal pain - *Musculoskeletal Denies joint pain - *Neurologic Reports headache(s) Exam Vital signs and Labs for Last 24 Hours: Temp Pulse Resp BP Pulse Ox 98.5 F 76 22 109/56 90 L 05/23/18 14:41 05/23/18 14:41 05/23/18 14:41 05/23/18 14:41 05/23/18 15:18 Laboratory Results - last 24 hr 05/23/18 11:49: WBC 33.3 H*, RBC 3.81 L, Hgb 11.9 L, Hct 36.3 L, MCV 95.1, MCH 31.1, MCHC 32.7, RDW 15.0, Plt Count 484 H, MPV 7.7, Neut % (Auto) 92.2 H, Lymph % (Auto) 4.6 L, [place] % (Auto) 2.9, Eos % (Auto) 0.2, Baso % (Auto) 0.1, Neut # (Auto) 30.7 H, Lymph # (Auto) 1.5, [place] # (Auto) 1.0, Eos # (Auto) 0.1, Baso # (Auto) 0.0, Total Counted 100, Neutrophils % (Manual) 88 H, Band Neutrophils % 1.0, Lymphocytes % (Manual) 9 L, Monocytes % (Manual) 2, Platelet Estimate Slight increase, RBC Morphology Normal 05/23/18 11:49: Sodium 145, Potassium 2.8 L*, Chloride 108 H, Carbon Dioxide 24, Anion Gap 15.8 H, BUN 11, Creatinine 1.11 H, Estimated Creat Clear 2, Estimated GFR 51 L, Est GFR ( Amer) 61, Glucose 127 H, Calcium 9.7, Troponin I 0.32 H 05/23/18 11:49: B-Natriuretic Peptide 417 H 05/23/18 13:00: Lactate 1.3 05/23/18 14:44: Troponin I 0.46 H I & O for Last 24 hours: Intake & Output 05/21/18 05/22/18 05/23/18 05/24/18 11:59 11:59 11:59 11:59 Weight 5 lb 4 oz 216 lb 6 oz - *Routine Neck Exam Absent: JVD, carotid bruit - *Routine Respiratory Exam Comments: Bibasilar crackles noted. No wheezing. - *Routine Cardiovascular Exam Present: RRR. Absent: murmur, gallop, rubs - *Routine Extremities Exam Absent: edema - *Routine Neurological Exam Present: alert, oriented X3, moving all extremities Assessment and Plan (1) Elevated troponin Current visit: Yes Status: Acute Category: Medical Code(s): R74.8 - Abnormal levels of other serum enzymes (2) CAP (community acquired pneumonia) Current visit: Yes Status: Acute Qualifiers: Laterality: right Lung location: lower lobe of lung Qualified Code(s): J18.1 - Lobar pneumonia, unspecified organism Category: Medical Code(s): J18.9 - Pneumonia, unspecified organism (3) Hypokalemia Current visit: Yes Status: Acute Category: Medical Code(s): E87.6 - Hypok alemia (4) Anemia Current visit: No Status: Acute Category: Medical Code(s): D64.9 - Anemia, unspecified (5) Diastolic dysfunction Current visit: No Status: Chronic Category: Medical Code(s): I51.9 - Heart disease, unspecified (6) Hypertensive disorder Current visit: No Status: Chronic Qualifiers: Hypertension type: essential hypertension Qualified Code(s): I10 - Essential (primary) hypertension Category: Medical Code(s): I10 - Essential (primary) hypertension (7) Obstructive sleep apnea syndrome Current visit: No Status: Chronic Category: Medical Code(s): G47.33 - Obstructive sleep apnea (adult) (pediatric) - Assessment and plan all Dx Assessment and Plan for all problems:: 1. Elevated troponin but doubt acute coronary syndrome. EKG is without acute ST segment changes. Patient with right-sided pneumonia and elevated white count with recent chlorine inhalation which likely is the culprit for right heart strain and elevated troponin. 2. Continue to treat pulmonary issues. 3. No further cardiac workup at this time. Please let us know if her clinical course changes.
--- NOTE | 2018-05-23 15:42 | Pharmacy Consult Notes ---
- Pharmacy Consult Date: 05/23/18 Time: 15:40 Referring provider: DR. PETERSON Reason for Consult:: VANCOMYCIN DOSING Allergies and ADEs:: Allergies Allergy/AdvReac Type Severity Reaction Status Date / Time Cephalosporins Allergy RASH Verified 05/16/18 08:34 erythromycin base Allergy Hives Verified 05/16/18 08:34 minocycline Allergy RASH Verified 05/16/18 08:34 penicillin G Allergy Hives Verified 05/16/18 08:34 Sulfa (Sulfonamide Allergy RASH Verified 05/16/18 08:34 Antibiotics) Home Medications:: Home Medications Medication Instructions Recorded Confirmed Type estradiol 1 mg tablet 1 mg PO DAILY 10/09/17 05/23/18 History losartan 50 mg tablet 50 mg PO DAILY 10/09/17 05/23/18 History metoclopramide 5 mg tablet 5 mg PO QID 10/09/17 05/23/18 History dicyclomine 10 mg capsule 10 mg PO NEEDED PRN 10/16/17 05/23/18 History Metoprolol Succinate 25 mg PO DAILY 01/11/18 05/23/18 History Potassium Chloride [Micro-K 10mEq 10 meq PO DAILY 01/11/18 05/23/18 History cap] Spironolactone [Aldactone 50mg Tab] 50 mg PO DAILY 01/11/18 05/23/18 History furosemide 40 mg tablet 40 mg PO DAILY tab 01/23/18 05/23/18 History Fluticasone Propionate [Flonase 2 spr NS DAILY 01/30/18 05/23/18 History 50mcg nasal spray 16gm] Aspirin [Aspirin 81mg EC Tab] 81 mg PO DAILY 01/31/18 05/23/18 History Hyoscyamine Sulfate 0.125 mg SL DAILYP PRN 01/31/18 05/23/18 History Height: 1.63 m Weight: 98.146 kg Laboratory Results:: Laboratory Results - last 24 hr 05/23/18 11:49: WBC 33.3 H*, RBC 3.81 L, Hgb 11.9 L, Hct 36.3 L, MCV 95.1, MCH 31.1, MCHC 32.7, RDW 15.0, Plt Count 484 H, MPV 7.7, Neut % (Auto) 92.2 H, Lymph % (Auto) 4.6 L, [place] % (Auto) 2.9, Eos % (Auto) 0.2, Baso % (Auto) 0.1, Neut # (Auto) 30.7 H, Lymph # (Auto) 1.5, [place] # (Auto) 1.0, Eos # (Auto) 0.1, Baso # (Auto) 0.0, Total Counted 100, Neutrophils % (Manual) 88 H, Band Neutrophils % 1.0, Lymphocytes % (Manual) 9 L, Monocytes % (Manual) 2, Platelet Estimate Slight increase, RBC Morphology Normal 05/23/18 11:49: Sodium 145, Potassium 2.8 L*, Chloride 108 H, Carbon Dioxide 24 , Anion Gap 15.8 H, BUN 11, Creatinine 1.11 H, Estimated Creat Clear 2, Estimated GFR 51 L, Est GFR ( Amer) 61, Glucose 127 H, Calcium 9.7, Troponin I 0.32 H 05/23/18 11:49: B-Natriuretic Peptide 417 H 05/23/18 13:00: Lactate 1.3 05/23/18 14:44: Troponin I 0.46 H Medical History: Reports:: Anxiety, Congestive Heart Failure, Coronary Artery Disease, Depression, Gastroesophageal Reflux Disease(GERD), Hypertension, MRSA Denies:: Cancer, Diabetes Mellitus Type 1, Diabetes Mellitus Type 2 Assessment and Plan (1) Elevated troponin Current visit: Yes Status: Acute Category: Medical Code(s): R74.8 - Abnormal levels of other serum enzymes (2) CAP (community acquired pneumonia) Current visit: Yes Status: Acute Qualifiers: Laterality: right Lung location: lower lobe of lung Qualified Code(s): J18.1 - Lobar pneumonia, unspecified organism Category: Medical Code(s): J18.9 - Pneumonia, unspecified organism (3) Hypokalemia Current visit: Yes Status: Acute Category: Medical Code(s): E87.6 - Hypokalemia (4) Anemia Current visit: No Status: Acute Category: Medical Code(s): D64.9 - Anemia , unspecified (5) Diastolic dysfunction Current visit: No Status: Chronic Category: Medical Code(s): I51.9 - Heart disease, unspecified (6) Hypertensive disorder Current visit: No Status: Chronic Qualifiers: Hypertension type: essential hypertension Qualified Code(s): I10 - Essential (primary) hypertension Category: Medical Code(s): I10 - Essential (primary) hypertension (7) Obstructive sleep apnea syndrome Current visit: No Status: Chronic Category: Medical Code(s): G47.33 - Obstructive sleep apnea (adult) (pediatric) - Assessment and plan all Dx Assessment and Plan for all problems:: BASED ON PATIENT FACTORS, RECOMMEND VANCOMYCIN 2 GM IV ONCE, FOLLOWED BY VANCOMYCIN 1750 MG IV Q24H. PHARMACY WILL FOLLOW DAILY AND ADJUST APPROPRIATE.
--- NOTE | 2018-05-23 15:43 | Pharmacy Consult Notes ---
[facility] Pharmacy VTE Monitoring - Patient Demographics Admission date: 05/23/18 Report Date: 05/23/18 Time: 15:43 Allergies/Adverse Reactions: Patient Allergies Cephalosporins Allergy (Verified 05/16/18 08:34) RASH erythromycin base Allergy (Verified 05/16/18 08:34) Hives minocycline Allergy (Verified 05/16/18 08:34) RASH penicillin G Allergy (Verified 05/16/18 08:34) Hives Sulfa (Sulfonamide Antibiotics) Allergy (Verified 05/16/18 08:34) RASH Height: 1.63 m Weight: 98.146 kg Patient Problems: Current Active Problems CAP (community acquired pneumonia) (Acute) Elevated troponin (Acute) Hypokalemia (Acute) - VTE Risk Labs: VTE Related Lab Results Hgb 11.9 g/dL (12.2-16.2) L 05/23/18 11:49 Hct 36.3 % (37.0-47.0) L 05/23/18 11:49 Plt Count 484 K/mm3 (142-424) H 05/23/18 11:49 BUN 11 mg/dL (7-18) 05/23/18 11:49 Creatinine 1.11 mg/dL (0.55-1.02) H 05/23/18 11:49 Estimated Creat Clear 2 mL/min (0-300) 05/23/18 11:49 VTE Risk Level: Very Low Risk Clinical Trial Participant: No - Prophylaxis VTE Prophylaxis Ordered?: Yes Types of VTE Prophylaxis: TEDS Knee High
[2018-05-24 07:55] LABS: Lymphocytes # 0.9 K/mm3 (0.7-4.5); Mean Corpuscular HGB Conc 32.1 g/dL (31.8-35.4); Mean Platelet Volume 7.5 fl (7.4-10.4)
[2018-05-24 08:05] LABS: Eosinophils % 0.1 % (0.1-12.0); Hematocrit 33.9 % (37.0-47.0); Hemoglobin 10.9 g/dL (12.2-16.2); Lymphocytes % 3.3 K/mm3 (10-50); Mean Corpuscular Volume 96.5 fl (81-99); Monocytes # 0.6 K/mm3 (0.1-1.0); Monocytes % 2.2 % (1.7-9.3); Neutrophils # 26.9 K/mm3 (1.8-7.8); Neutrophils % 94.4 % (37.0-80.0); Platelet Count 353 K/mm3 (142-424); Red Blood Count 3.51 M/mm3 (4.20-5.40); White Blood Count 28.5 K/mm3 (4.8-10.8)
[2018-05-24 08:33] LABS: Lymphocytes % 2 % (10-50); Neutrophils % 98 % (42-76); RBC Morphology Normal; Total Cells Counted 100
--- NOTE | 2018-05-24 09:04 | Progress Note ---
Internal Medicine - PN: Subj *Date: 05/25/18 *Time: 09:24 Interval history: doing some better this am - no chest pain Exam Vital signs and Labs for Last 24 Hours: Temp Pulse Resp BP Pulse Ox 98.8 F 63 20 96/43 98 05/24/18 07:46 05/24/18 07:46 05/24/18 07:46 05/24/18 07:46 05/24/18 07:46 Laboratory Results - last 24 hr 05/23/18 11:49: WBC 33.3 H*, RBC 3.81 L, Hgb 11.9 L, Hct 36.3 L, MCV 95.1, MCH 31.1, MCHC 32.7, RDW 15.0, Plt Count 484 H, MPV 7.7, Neut % (Auto) 92.2 H, Lymph % (Auto) 4.6 L, [place] % (Auto) 2.9, Eos % (Auto) 0.2, Baso % (Auto) 0.1, Neut # (Auto) 30.7 H, Lymph # (Auto) 1.5, [place] # (Auto) 1.0, Eos # (Auto) 0.1, Baso # (Auto) 0.0, Total Counted 100, Neutrophils % (Manual) 88 H, Band Neutrophils % 1.0, Lymphocytes % (Manual) 9 L, Monocytes % (Manual) 2, Platelet Estimate Slight increase, RBC Morphology Normal 05/23/18 11:49: Sodium 145, Potassium 2.8 L*, Chloride 108 H, Carbon Dioxide 24 , Anion Gap 15.8 H, BUN 11, Creatinine 1.11 H, Estimated Creat Clear 2, Estimated GFR 51 L, Est GFR ( Amer) 61, Glucose 127 H, Calcium 9.7, Troponin I 0.32 H 05/23/18 11:49: B-Natriuretic Peptide 417 H 05/23/18 13:00: Lactate 1.3 05/23/18 14:44: Troponin I 0.46 H 05/23/18 17:25: Troponin I 0.45 H 05/24/18 07:30: WBC 28.5 H*, RBC 3.51 L, Hgb 10.9 L, Hct 33.9 L, MCV 96.5, MCH 31.0, MCHC 32.1, RDW 15.0, Plt Count 353 D, MPV 7.5, Neut % (Auto) 94.4 H, Lymph % (Auto) 3.3 L, [place] % (Auto) 2.2, Eos % (Auto) 0.1, Baso % (Auto) 0.0 L, Neut # (Auto) 26.9 H, Lymph # (Auto) 0.9, [place] # (Auto) 0.6, Eos # (Auto) 0.0, Baso # (Auto) 0.0, Total Counted 100, Neutrophils % (Manual) 98 H, Lymphocytes % (Manual) 2 L, Platelet Estimate Normal, RBC Morphology Normal I & O for Last 24 hours: Intake & Output 05/21/18 05/22/18 05/23/18 05/24/18 11:59 11:59 11:59 11:59 Intake Total 240 / 240 Balance 240 / 240 Weight 5 lb 4 oz 218 lb 5.998 oz - Constitutional no acute distress, obese - *Routine HEENT Exam Head: Present: normocephalic Eye: Present: EOMI, PERRL ENT: Present: mucous membranes dry - *Routine Neck Exam Absent: JVD - *Routine Respiratory Exam Present: CTA bilaterally - *Routine Cardiovascular Exam Present: RRR, murmur - *Routine Abdominal Exam Present: soft - *Routine Extremities Exam Present: edema. Absent: calf tenderness - *Routine Skin Exam Present: intact - *Routine Neurological Exam Present: alert, CN II-XII intact - Routine Psychiatric Exam Present: normal affect Assessment and Plan (1) CAP (community acquired pneumonia) Current visit: Yes Status: Acute Qualifiers: Laterality: right Lung location: lower lobe of lung Qualified Code(s): J18.1 - Lobar pneumonia, unspecified organism Category: Medical Code(s): J18.9 - Pneumonia, unspecified organism (2) Elevated troponin Current visit: Yes Status: Acute Category: Medical Code(s): R74.8 - Abnormal levels of other serum enzymes (3) Hypokalemia Current visit: Yes Status: Acute Category: Medical Code(s): E87.6 - Hypokalemia
[2018-05-24 09:44] LABS: Anion Gap 12.7 mEq/L (5-15); Calcium 9.5 mg/dL (8.5-10.1); Potassium 3.7 mmoL/L (3.5-5.1)
--- NOTE | 2018-05-25 09:31 | Progress Note ---
Internal Medicine - PN: Subj *Date: 05/25/18 *Time: 09:29 Interval history: no chest pain doing ok but still on o2 Exam Vital signs and Labs for Last 24 Hours: Temp Pulse Resp BP Pulse Ox 98.7 F 71 20 130/64 93 L 05/25/18 07:27 05/25/18 07:27 05/25/18 07:27 05/25/18 07:27 05/25/18 07:27 Laboratory Results - last 24 hr 05/24/18 07:30: Sodium 142, Potassium 3.7 D, Chloride 108 H, Carbon Dioxide 25 , Anion Gap 12.7, BUN 17 D, Creatinine 1.05 H, Estimated Creat Clear 96, Estimated GFR 54 L, Est GFR ( Amer) 65, Glucose 144 H, Calcium 9.5, Troponin I 0.77 H I & O for Last 24 hours: Intake & Output 05/22/18 05/23/18 05/24/18 05/25/18 11:59 11:59 11:59 11:59 Intake Total 480 / 480 250 / 250 Balance 480 / 480 250 / 250 Weight 5 lb 4 oz 227 lb 222 lb 3 oz Microbiology Reports for the Last 24 Hours: Microbiology 05/24/18 14:50 Sputum - Expectorated Sputum Gram Stain - Final - Constitutional no acute distress - *Routine HEENT Exam Head: Present: normocephalic Eye: Present: EOMI, PERRL ENT: Present: mucous membranes dry - *Routine Neck Exam Absent: JVD - *Routine Respiratory Exam Present: CTA bilaterally - *Routine Cardiovascular Exam Present: RRR, murmur - *Routine Abdominal Exam Present: soft - *Routine Extremities Exam Absent: calf tenderness - *Routine Skin Exam Present: intact - *Routine Neurological Exam Present: alert, oriented X3, CN II-XII intact - Routine Psychiatric Exam Present: normal affect Assessment and Plan (1) CAP (community acquired pneumonia) Current visit: Yes Status: Acute Qualifiers: Laterality: right Lung location: lower lobe of lung Qualified Code(s): J18.1 - Lobar pneumonia, unspecified organism Category: Medical Code(s): J18.9 - Pneumonia, unspecified organism (2) Elevated troponin Current visit: Yes Status: Acute Category: Medical Code(s): R74.8 - Abnormal levels of other serum enzymes (3) Hypokalemia Current visit: Yes Status: Acute Category: Medical Code(s): E87.6 - Hypokalemia
[2018-05-26 08:04] LABS: Eosinophils % 0.1 % (0.1-12.0); Hematocrit 32.3 % (37.0-47.0); Hemoglobin 10.2 g/dL (12.2-16.2); Lymphocytes % 6.4 K/mm3 (10-50); Mean Corpuscular HGB Conc 31.6 g/dL (31.8-35.4); Mean Corpuscular Hemoglobin 30.5 pg (27.0-31.2); Mean Corpuscular Volume 96.7 fl (81-99); Mean Platelet Volume 7.9 fl (7.4-10.4); Monocytes # 0.3 K/mm3 (0.1-1.0); Monocytes % 2.2 % (1.7-9.3); Neutrophils # 14.2 K/mm3 (1.8-7.8); Neutrophils % 91.2 % (37.0-80.0); Platelet Count 324 K/mm3 (142-424); Red Blood Count 3.34 M/mm3 (4.20-5.40); White Blood Count 15.6 K/mm3 (4.8-10.8)
[2018-05-26 08:15] LABS: Anion Gap 12.9 mEq/L (5-15); Calcium 9.5 mg/dL (8.5-10.1); Potassium 3.9 mmoL/L (3.5-5.1)
[2018-05-26 10:16] LABS: Lymphocytes % 3 % (10-50); Monocytes % 2 % (2-9); Neutrophils % 95 % (42-76); Total Cells Counted 100
[2018-05-26 10:17] LABS: RBC Morphology Normal
--- NOTE | 2018-05-26 10:41 | Progress Note ---
Subjective Date: 05/26/18 Time: 10:39 Principal diagnosis: elevated troponins Interval history: 57-year-old white female in room in no acute distress. States she feels much better compared with Saturday when she was admitted. No chest pain. Exam Vital signs and Labs for Last 24 Hours: Temp Pulse Resp BP Pulse Ox 98.8 F 66 20 149/76 84 L 05/26/18 07:52 05/26/18 09:25 05/26/18 07:52 05/26/18 07:52 05/26/18 09:25 Laboratory Results - last 24 hr 05/26/18 07:45: WBC 15.6 H D, RBC 3.34 L, Hgb 10.2 L, Hct 32.3 L, MCV 96.7, MCH 30.5, MCHC 31.6 L, RDW 15.0, Plt Count 324, MPV 7.9, Neut % (Auto) 91.2 H, Lymph % (Auto) 6.4 L, [place] % (Auto) 2.2, Eos % (Auto) 0.1, Baso % (Auto) 0.0 L, Neut # (Auto) 14.2 H, Lymph # (Auto) 1.0, [place] # (Auto) 0.3, Eos # (Auto) 0.0, Baso # (Auto) 0.0, Total Counted 100, Neutrophils % (Manual) 95 H, Lymphocytes % (Manual) 3 L, Monocytes % (Manual) 2, Platelet Estimate Normal, RBC Morphology Normal 05/26/18 07:45: Sodium 141, Potassium 3.9, Chloride 107, Carbon Dioxide 25, Anion Gap 12.9, BUN 24 H D, Creatinine 1.10 H, Estimated Creat Clear 90, Estimated GFR 51 L, Est GFR ( Amer) 62, Glucose 149 H, Calcium 9.5 I & O for Last 24 hours: Intake & Output 05/23/18 05/24/18 05/25/18 05/26/18 11:59 11:59 11:59 11:59 Intake Total 480 / 480 250 / 250 250 / 250 Balance 480 / 480 250 / 250 250 / 250 Weight 5 lb 4 oz 227 lb 222 lb 3 oz 222 lb Microbiology Reports for the Last 24 Hours: Microbiology 05/24/18 14:50 Sputum - Expectorated Sputum Gram Stain - Final 05/24/18 14:50 Sputum - Expectorated Sputum Sputum Culture - Preliminary 05/23/18 13:00 Blood Blood Culture - Preliminary NO GROWTH AFTER 48 HOURS 05/23/18 13:00 Blood Blood Culture - Preliminary NO GROWTH AFTER 48 HOURS - *Routine Respiratory Exam Present: decreased breath sounds. Absent: rhonchi - *Routine Cardiovascular Exam Present: RRR Progress Note: A&P (1) CAP (community acquired pneumonia) Status: Acute Current Visit: Yes (2) Elevated troponin Status: Acute Current Visit: Yes (3) Hypokalemia Status: Acute Current Visit: Yes Assessment and Plan for All Diagnoses:: Patient was seen with Dr. Gore. Review of patient's cardiac cath from May 2017 shows mild coronary artery disease with evidence of diastolic dysfunction. Patient has normal left ventricular ejection fraction. Echocardiogram results from 3 days ago reviewed as well showing normal ejection fraction without segmental wall motion abnormality but with evidence of pulmonary hypertension. Elevated troponins felt secondary to current pulmonary issues. It is not felt that further cardiac workup is required at this time. Patient could be discharged home on current medications with follow-up in our office in a couple of weeks.
--- NOTE | 2018-05-26 11:56 | Discharge Summary ---
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 She has been getting progressively short of breath since then. She has used her albuterol inhaler a couple of times without improvement. Prior to this she was not sick. She says she is not diagnosed with either COPD or asthma, just congestive heart failure. She is a smoker. pt was noted to have cap on xray and element of pneumonitis and was admitted - also had elevated troponin in the ed and was seen by misti valverde since age 25, 1 ppd at least 2. IBS, diarrhea predominant, followed by GI 3. Chronic pancreatitis, previous workup by GI 4. HTN, treated for 5 yrs 5. Status post cholecystectomy, hysterectomy due to endometriosis and pelvic inflammatory disease 6. Chronic back pain with chronic pain medication 7. Hypothyroidism 8. Congestive heart failure, 05/2017 A. Right and left heart catheterization, 06/12/17, mild nonocclusive coronary artery disease. Mild pulmonary hypertension. No evidence of intra- cardiopulmonary shunt. Congestive heart failure felt secondary to diastolic dysfunction with improvement after 6 L diuresis overnight. History of present illness: Per Dr. 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 She has been getting progressively short of breath since then. She has used her albuterol inhaler a couple of times without improvement. Prior to this she was not sick. She says she is not diagnosed with either COPD or asthma, just congestive heart failure. She is a smoker. Workup in the ER revealed elevated troponin. Cardiology consulted for evaluation and recommendations. EKG shows sinus rhythm with some nonspecific ST-T abnormalities consistent with previous tracings. Chest x-ray shows a right sided pneumonia. Patient has a elevated white count at 33,000. evated troponin but doubt acute coronary syndrome. EKG is without acute ST segment changes. Patient with right-sided pneumonia and elevated white count with recent chlorine inhalation which likely is the culprit for right heart strain and elevated troponin. 2. Continue to treat pulmonary issues. 3. No further cardiac workup at this time. Please let us know if her clinical course changes. Hospital Course Hospital Course: pt has did well with dec wbc and has dec resp sx - she had elevated trop and seen by card -ent was seen with Dr. Gore. Review of patient's cardiac cath from May 2017 shows mild coronary artery disease with evidence of diastolic dysfunction. Patient has normal left ventricular ejection fraction. Echocardiogram results from 3 days ago reviewed as well showing normal ejection fraction without segmental wall motion abnormality but with evidence of pulmonary hypertension. Elevated troponins felt secondary to current pulmonary issues. It is not felt that further cardiac workup is required at this time. Patient could be discharged home on current medications with follow-up in our office in a couple of weeks. pt will be followed on her xray at office - Objective Vital signs: Temp Pulse Resp BP Pulse Ox 98.8 F 66 20 149/76 84 L 05/26/18 07:52 05/26/18 09:25 05/26/18 07:52 05/26/18 07:52 05/26/18 09:25 no acute distress, obese - *Routine HEENT Exam Head: Present: normocephalic Eye: Present: EOMI, PERRL ENT: Present: mucous membranes dry - *Routine Neck Exam Present: supple. Absent: JVD - *Routine Respiratory Exam Present: CTA bilaterally - *Routine Cardiovascular Exam Present: RRR, murmur. Absent: rubs, S3 - *Routine Abdominal Exam Present: soft - *Routine Extremities Exam Absent: calf tenderness - *Routine Skin Exam Present: intact - *Routine Neurological Exam Present: alert, oriented X3, CN II-XII intact - Routine Psychiatric Exam Present: normal affect Results Labs on day of discharge: Labs from last 24 hours 05/26/18 05/26/18 07:45 07:45 WBC 15.6 H D RBC 3.34 L Hgb 10.2 L Hct 32.3 L MCV 96.7 MCH 30.5 MCHC 31.6 L RDW 15.0 Plt Count 324 MPV 7.9 Neut % (Auto) 91.2 H Lymph % (Auto) 6.4 L [place] % (Auto) 2.2 Eos % (Auto) 0.1 Baso % (Auto) 0.0 L Neut # (Auto) 14.2 H Lymph # (Auto) 1.0 [place] # (Auto) 0.3 Eos # (Auto) 0.0 Baso # (Auto) 0.0 Total Counted 100 Neutrophils % (Manual) 95 H Lymphocytes % (Manual) 3 L Monocytes % (Manual) 2 Platelet Estimate Normal RBC Morphology Normal Sodium 141 Potassium 3.9 Chloride 107 Carbon Dioxide 25 Anion Gap 12.9 BUN 24 H D Creatinine 1.10 H Estimated Creat Clear 90 Estimated GFR 51 L Est GFR ( Amer) 62 Glucose 149 H Calcium 9.5 Preliminary micro results at discharge 05/24/18 14:50 Sputum Culture - Preliminary Sputum - Expectorated Sputum 05/23/18 13:00 Blood Culture - Preliminary Blood NO GROWTH AFTER 48 HOURS 05/23/18 13:00 Blood Culture - Preliminary Blood NO GROWTH AFTER 48 HOURS DS: Diagnosis - Discharge Diagnosis (1) CAP (community acquired pneumonia) Status: Acute (2) Elevated troponin Status: Acute (3) Hypokalemia Status: Acute (4) Leukocytosis Status: Acute (5) Anemia Status: Acute (6) Overweight Status: Acute (7) Renal insufficiency Status: Acute Discharge Plan - Patient Discharge Instructions ACTIVITY: Continue current activity DIET: continue same diet Patient Instructions: DI for Inhalation Injury, DI for Atypical Pneumonia - Follow up Plan Disposition: Home, Self-Fdc Medications: Home Medications Medication Instructions Recorded Confirmed Type estradiol 1 mg tablet 1 mg PO DAILY 10/09/17 05/23/18 History losartan 50 mg tablet 50 mg PO DAILY 10/09/17 05/23/18 History metoclopramide 5 mg tablet 5 mg PO QID 10/09/17 05/23/18 History dicyclomine 10 mg capsule 10 mg PO NEEDED PRN 10/16/17 05/23/18 History Metoprolol Succinate 25 mg PO DAILY 01/11/18 05/23/18 History Potassium Chloride [Micro-K 10mEq 10 meq PO DAILY 01/11/18 05/23/18 History cap] Spironolactone [Aldactone 50mg Tab] 50 mg PO DAILY 01/11/18 05/23/18 History furosemide 40 mg tablet 40 mg PO DAILY tab 01/23/18 05/23/18 History Fluticasone Propionate [Flonase 2 spr NS DAILY 01/30/18 05/23/18 History 50mcg nasal spray 16gm] Aspirin [Aspirin 81mg EC Tab] 81 mg PO DAILY 01/31/18 05/23/18 History Hyoscyamine Sulfate 0.125 mg SL DAILYP PRN 01/31/18 05/23/18 History Prescriptions/Medication Reconciliation: New levoFLOXacin [Levaquin 500mg tab] 500 mg PO DAILY #7 tab Continue estradiol 1 mg tablet 1 mg PO DAILY losartan 50 mg tablet 50 mg PO DAILY metoclopramide 5 mg tablet 5 mg PO QID dicyclomine 10 mg capsule 10 mg PO NEEDED PRN PRN Reason: IBS furosemide 40 mg tablet 40 mg PO DAILY tab trazodone 100 mg tablet 200 mg PO QHS PRN #60 tab PRN Reason: insomnia gabapentin 800 mg tablet 800 mg PO QID #120 tab albuterol sulfate HFA 90 mcg/actuation aerosol inhaler 2 inh INHALATION Q4- 6H PRN #6.7 g PRN Reason: Shortness Of Breath Or Wheezing levothyroxine 75 mcg tablet 75 mcg PO DAILY #30 tab omeprazole 40 mg capsule,delayed release 40 mg PO DAILY #30 cap Spironolactone [Aldactone 50mg Tab] 50 mg PO DAILY Potassium Chloride [Micro-K 10mEq cap] 10 meq PO DAILY Metoprolol Succinate 25 mg PO DAILY Fluticasone Propionate [Flonase 50mcg nasal spray 16gm] 2 spr NS DAILY Hyoscyamine Sulfate 0.125 mg SL DAILYP PRN PRN Reason: IBS Aspirin [Aspirin 81mg EC Tab] 81 mg PO DAILY
== END 2018-05-26 12:22 | disposition home or self-care (01) ==
LOC: ER 11:35 → 2ND 13:41
PROVIDERS: ADMIT Emergency Medicine; ATTEND Emergency Medicine

== ENCOUNTER → 2018-05-30 09:55 | Outpatient (CLI) | payer BC, SELFPAY ==
--- NOTE | 2018-05-30 10:03 | XR_ITS ---
XR chest 2V HISTORY: ITS.REASON: edema ORDERING PHYSICIAN: Zeke Chairez MD PATIENT AGE: 57 years Technique: AP and lateral COMPARISON: 05/23/2018 portable chest as well as 02/03/2018 CXR FINDINGS: There is been interval improvement with clearing of the infiltrate at right and left lung base since prior study. There may been element vascular congestion on prior study in retrospect as well which is also improved.. Upper normal pulmonary vascularity. Mild cardiomegaly . No pleural effusion. Chest wall unremarkable. IMPRESSION 1. Significant overall improvement since 05/23/2018.with clearing of bilateral infiltrates Clearing most pronounced towards right lung base 2. Only question some subtle residual infiltrate at the left infrahilar region today 3 suspect previous element of vascular congestion/mild CHF, which has shown improvement since May 23.. Cardiomegaly, but with heart size is less pronounced than May 23 study
[2018-05-30 10:17] LABS: Basophils % 0.1 % (0.1-2.0); Eosinophils # 0.4 K/mm3 (0.0-0.4); Eosinophils % 3.8 % (0.1-12.0); Hematocrit 36.8 % (37.0-47.0); Hemoglobin 11.6 g/dL (12.2-16.2); Lymphocytes # 2.2 K/mm3 (0.7-4.5); Lymphocytes % 22.9 K/mm3 (10-50); Mean Corpuscular HGB Conc 31.6 g/dL (31.8-35.4); Mean Corpuscular Hemoglobin 30.5 pg (27.0-31.2); Mean Corpuscular Volume 96.5 fl (81-99); Mean Platelet Volume 7.2 fl (7.4-10.4); Monocytes # 0.5 K/mm3 (0.1-1.0); Monocytes % 5.4 % (1.7-9.3); Neutrophils # 6.6 K/mm3 (1.8-7.8); Neutrophils % 67.8 % (37.0-80.0); Platelet Count 413 K/mm3 (142-424); Red Blood Count 3.81 M/mm3 (4.20-5.40); Red Cell Distribution Width 14.5 % (11.5-17.5); White Blood Count 9.7 K/mm3 (4.8-10.8)
== END ==
PROVIDERS: PCP Emergency Medicine; Visit Provider Emergency Medicine
DX: R60.0 Localized edema (principal)
CPT/HCPCS: 36415; 71046; 85025

== ENCOUNTER → 2018-06-30 14:13 | Outpatient (CLI) | payer BC, SELFPAY ==
--- NOTE | 2018-06-30 14:14 | XR_ITS ---
XR chest 2V HISTORY: ITS.REASON: cough ORDERING PHYSICIAN: Zeke Chairez MD PATIENT AGE: 57 years COMPARISON: 05/30/2018 FINDINGS: The cardiomediastinal silhouette and pulmonary vascularity are within normal limits. There is increased density in the right perihilar region and right infrahilar area as well as left perihilar region consistent with bilateral perihilar pneumonia. No effusions. No acute bony anomalies. IMPRESSION: Bilateral perihilar pneumonia
== END ==
PROVIDERS: PCP Emergency Medicine; Visit Provider Emergency Medicine
DX: R05 Cough (principal)
CPT/HCPCS: 71046

== ENCOUNTER 2018-09-05 16:55 | Inpatient (IN) ==
--- NOTE | 2018-09-05 17:17 | Emergency Department Note ---
ED Disposition Clinical Impression: Bronchospasm, acute, Multiple drug allergies Acute bronchitis Qualifiers: Bronchitis organism: unspecified organism Qualified Code(s): J20.9 - Acute bronchitis, unspecified Disposition: Admitted As Inpatient Condition on Discharge: Fair (Stable) Referrals: Reuben Ang APRN [Primary Care Provider] - Zeke Chairez MD [Staff Physician] - Time of Disposition: 17:25 - Critical Care Critical Care Time: No Attestation: On , the high probability of a clinically significant, sudden or life threatening deterioration of the following system(s) required my full and direct attention, intervention and personal management. The time I documented below is in addition to time spent performing reported procedures but includes the following listed in this critical care notation. Medical Decision Making - Medical Records Medical records reviewed: Yes: I reviewed the patient's medical records. - Adolph Inquiry Pt receiving controlled substance: No Adolph was queried for this patient: No Vital Signs: 09/05/18 16:58 Temperature 98.2 F Temperature Source Oral Pulse Rate [Right Radial] 65 Respiratory Rate 20 Blood Pressure [Right Arm] 165/84 H Blood Pressure Mean [Right Arm] 111 Blood Pressure Source [Right Arm] Automatic Cuff Blood Pressure Position [Right Arm] Sitting 02 Sat by Pulse Oximetry 96 Oxygen Delivery Method Room Air - Lab Data Lab results reviewed: Yes: I reviewed the patient's lab results. Lab Results 09/05/18 17:10: WBC 14.8 H, RBC 3.45 L, Hgb 10.7 L, Hct 33.5 L, MCV 97.1, MCH 30.9, MCHC 31.8, RDW 14.5, Plt Count 393, MPV 7.2 L, Neut % (Auto) 69.3, Lymph % (Auto) 25.4, [place] % (Auto) 4.0, Eos % (Auto) 1.1, Baso % (Auto) 0.2, Neut # (Auto) 10.2 H, Lymph # (Auto) 3.8, [place] # (Auto) 0.6, Eos # (Auto) 0.2, Baso # (Auto) 0.0 09/05/18 17:10: Sodium 139, Potassium 3.3 L, Chloride 104, Carbon Dioxide 26, Anion Gap 12.3, BUN 16, Creatinine 1.02, Estimated Creat Clear 102, Estimated GFR 56 L, Est GFR ( Amer) 67, Glucose 92, Calcium 8.6, Total Bilirubin 0.2, AST 11 L, ALT 28, Alkaline Phosphatase 73, Total Protein 6.6, Albumin 2.9 L , Globulin 3.7 H, Albumin/Globulin Ratio 0.8 L 09/05/18 17:10: Lactate 0.7 Result diagrams: 09/05/18 17:10 09/05/18 17:10 Orders (Tests/Meds): ED MEDICATIONS Generic Name Dose Route Start Last Admin Trade Name Freq PRN Reason Stop Dose Admin Sodium Chloride 3 ml 09/05/18 17:27 Sodium Chloride 3% 15ml [facility] 10/05/18 17:26 ONCE PRN INDUCE SPUTUM COLLECTION Discontinued Medications Generic Name Dose Route Start Last Admin Trade Name Freq PRN Reason Stop Dose Admin Albuterol/Ipratropium 3 ml 09/05/18 17:27 09/05/18 17:37 Duoneb 3ml [facility] 09/05/18 17:28 3 ml ONCE ONE Administration Potassium Chloride 20 meq 09/05/18 17:57 Klor-Con 20meq Tablet PO 09/05/18 17:58 ONCE ONE ORDERS Category Date Time Status Chest XR 2 view (NOT portable) [XR chest 2V] Stat Exams 09/05/18 17:10 Taken BNP [B-Type Natriuretic Peptide] Stat Lab 09/05/18 17:10 Received CKMB [Creatine Kinase MB] Stat Lab 09/05/18 17:10 Received CPK [Creatine Kinase] Stat Lab 09/05/18 17:10 Received Magnesium Stat Lab 09/05/18 17:10 Received Trop I [Troponin I] Stat Lab 09/05/18 17:10 Received Blood Culture Stat Micro 09/05/18 17:24 Ordered Sputum Culture & Gram Stain Stat Micro 09/05/18 17:27 Ordered EKG Request [ECG Request by Dr/Nse] Stat Y 09/05/18 17:26 Ordered - ECG Data Tracing #1 I reviewed this ECG and interpreted as documented below: (EKG shows sinus bradycardia at [address] changes.) Medical Decision Narrative: 17:22 Pt evaluated. EKG, PCXR and screening labs ordered. BC x 2 ordered and pending. DuoNeb ordered. Vancomycin 1 gm IVPB and SoluMedrol 125 mg IVP ordered. I will contact Dr. Chairez to confirm his desire for admission. 18:[address] Chairez. Pt will be admitted. Results of work up, diagnosis and care plan discussed with pt. She understands and all questions answered. Resp/SOB HPI - General Chief Complaint: Shortness of Breath/Dyspnea Stated Complaint: Cough,congestion Time Seen by Provider: 09/05/18 17:10 Mode of Arrival: Ambulatory Source of Information: Patient Limitations: No Limitations Description of Symptoms (Recalled from ER Triage Doc. by RN): Pt c/o SOA, loose cough. Pt was seen in ER last saturday reports was sent home on steroids, reports was seen in PCP office today and sent to ER for further evaluation. - History of Present Illness Pt is here in the ER for evaluation from Dr. Alexis's office c/o persistent cough, wheezing, sob and SOTELO. Cough has been productive with green phlegm. Pt seen here in ER last Saturday. Pt given increase in Prednisone dose and Levaquin. Pt saw Dr. Alexis who spoke with Dr. Chairez, and they instructed pt to present to ER for admission on IV Vancomycin. - Related Data Home Medications Medication Instructions Recorded Confirmed estradiol 1 mg tablet 1 mg PO DAILY 10/09/17 09/05/18 losartan 50 mg tablet 50 mg PO DAILY 10/09/17 09/05/18 metoclopramide 5 mg tablet 5 mg PO QID 10/09/17 09/05/18 dicyclomine 10 mg capsule 10 mg PO NEEDED PRN 10/16/17 09/05/18 Metoprolol Succinate 25 mg PO DAILY 01/11/18 09/05/18 Potassium Chloride [Micro-K 10mEq 10 meq PO DAILY 01/11/18 09/05/18 cap] Spironolactone [Aldactone 50mg Tab] 50 mg PO DAILY 01/11/18 09/05/18 furosemide 40 mg tablet 40 mg PO DAILY PRN tab 01/23/18 09/05/18 Aspirin [Aspirin 81mg EC Tab] 81 mg PO DAILY 01/31/18 09/05/18 Hyoscyamine Sulfate 0.125 mg SL DAILYP PRN 01/31/18 09/05/18 budesonide-formoterol HFA 80 2 puff INHALATION BID 08/25/18 09/05/18 mcg-4.5 mcg/actuation aerosol inhaler montelukast 10 mg tablet 10 mg PO QHS 30 Days #30 tab 08/25/18 09/05/18 Previous Rx's Medication Instructions Recorded levothyroxine 75 mcg tablet 75 mcg PO DAILY #30 tab 05/06/18 trazodone 100 mg tablet 200 mg PO QHS PRN #60 tab 05/06/18 fluticasone 50 mcg/actuation nasal 2 spray INTRANASAL DAILY #16 g 05/30/18 spray,suspension gabapentin 800 mg tablet 800 mg PO QID #120 tab 08/25/18 albuterol sulfate HFA 90 2 inh INHALATION Q4-6H PRN #1 inh 08/29/18 mcg/actuation aerosol inhaler omeprazole 40 mg capsule,delayed 40 mg PO DAILY #30 cap 09/02/18 release Allergies Allergy/AdvReac Type Severity Reaction Status Date / Time Cephalosporins Allergy RASH Verified 09/01/18 11:46 erythromycin base Allergy Hives Verified 09/01/18 11:46 minocycline Allergy RASH Verified 09/01/18 11:46 penicillin G Allergy Hives Verified 09/01/18 11:46 Sulfa (Sulfonamide Allergy RASH Verified 09/01/18 11:46 Antibiotics) [facility] History I have reviewed the patient's past medical history: Yes Medical History: Reports:: Anxiety, Congestive Heart Failure, Coronary Artery Disease, Depression, Gastroesophageal Reflux Disease(GERD), Hypertension, MRSA Denies:: Cancer, Diabetes Mellitus Type 1, Diabetes Mellitus Type 2 Other Medical History: Reports: Anemia, Arthritis, Fibromyalgia, Hypothyroidism, Thyroid Disease, Other Comment: SLEEP APNEA Laterality Cases: Bilateral: Tonsillectomy Other Surgeries: Yes: Angioplasty, Cardiac Catheterization, Cholecystectomy, Colonoscopy, Dilation and Curettage, Hysterectomy-Total, Other Amputation: No Fractures: No Comment: GALLBLADDER,2 CYSTS REMOVED FROM RIGHT SHOULDER - Social History Smoking Status: Current some day smoker Tobacco Type: cigarettes # Packs/Day (cigarettes): 1 #Yrs smoked (if former smoker): 20 Alcohol Intake: never Alcohol Intake Frequency:: other Substance Use Type: denies use Occupational Status: employed Housing: house Household Members: family - Psychiatric History Expresses thoughts of harming self/others: None Suicide Plan Description: No Plan Pschychiatric History:: Reports:: Anxiety, Depression Family Hx:: Anemia, Cancer, Coronary Artery Disease, Hyperlipidemia, Hypertension, Kidney Disease, Stroke, Thyroid Disorder, Tuberculosis ROS Obtained: Yes All systems reviewed & no additional complaints - Constitutional Constitutional: Reports system reviewed and no additional complaints, except as docu - Eyes Eyes: Reports system reviewed and no additional complaints, except as docu - ENT Ears, Nose, Mouth, and Throat: Reports system reviewed and no additional complaints, except as docu - Respiratory Respiratory: Yes system reviewed and no additional complaints, except as docu, Yes as per HPI, Yes cough, Yes dyspnea, Yes dyspnea on exertion, No stridor, Yes wheezing - Gastrointestinal Gastrointestingal: Reports: system reviewed and no additional complaints, except as docu - Genitourinary Male Genitourinary: Reports system reviewed and no additional complaints, except as docu Female Genitourinary: Reports system reviewed and no additional complaints, except as docu - Musculoskeletal Musculoskeletal: Reports system reviewed and no additional complaints, except as docu - Integumentary/Breasts Skin/Breast: Reports system reviewed and no additional complaints, except as docu - Neurologic Neurologic: Reports system reviewed and no additional complaints, except as docu - Endocrine Endocrine: Reports system reviewed and no additional complaints, except as docu - Hematologic/Lymphatic Henatologic/Lymphatic: Reports system reviewed and no additional complaints, except as docu - Allergic/Immunologic Allergic/Immunologic: Reports system reviewed and no additional complaints, except as docu Comments: Also has history of allergy to all PO antibiotics except Levaquin. Physical Exam - General General appearance: alert, in no apparent distress - Head Head exam: atraumatic, normocephalic, normal inspection - Eye Eye exam: Present: PERRL, EOMI - ENT ENT exam: Present: mucous membranes moist - Neck Neck exam: Present: trachea midline - Chest Chest inspection: Present: normal inspection, symmetric chest wall rise - Respiratory Respiratory exam: Present: wheezes (Inspiratory and end-expiratory wheezing.), other (Equally diminished BS bilaterally. (+) occasional congested and productive cough.). Absent: stridor - Cardiovascular Cardiovascular exam: Present: regular rate, normal heart sounds - Abdominal Exam Abdominal exam: Present: soft, normal bowel sounds, other (obese). Absent: distention, tenderness, guarding, rebound, rigidity - Extremities Exam Extremities exam: Present: normal inspection, full ROM. Absent: pedal edema - Neurological Exam Neurological exam: Present: alert, oriented X3, CN II-XII intact. Absent: motor sensory deficit - Psychiatric Psychiatric exam: Present: normal affect, normal mood - Skin Skin exam: Present: warm, dry, intact. Absent: rash
[2018-09-05 17:31] LABS: Basophils % 0.2 % (0.1-2.0); Eosinophils # 0.2 K/mm3 (0.0-0.4); Eosinophils % 1.1 % (0.1-12.0); Hematocrit 33.5 % (37.0-47.0); Hemoglobin 10.7 g/dL (12.2-16.2); Lymphocytes # 3.8 K/mm3 (0.7-4.5); Lymphocytes % 25.4 % (10-50); Mean Corpuscular HGB Conc 31.8 g/dL (31.8-35.4); Mean Corpuscular Hemoglobin 30.9 pg (27.0-31.2); Mean Corpuscular Volume 97.1 fl (81-99); Mean Platelet Volume 7.2 fl (7.4-10.4); Monocytes # 0.6 K/mm3 (0.1-1.0); Neutrophils # 10.2 K/mm3 (1.8-7.8); Neutrophils % 69.3 % (37.0-80.0); Platelet Count 393 K/mm3 (142-424); Red Blood Count 3.45 M/mm3 (4.20-5.40); Red Cell Distribution Width 14.5 % (11.5-17.5); White Blood Count 14.8 K/mm3 (4.8-10.8)
[2018-09-05 17:49] LABS: Albumin Level 2.9 gm/dL (3.4-5.0); Albumin/Globulin Ratio 0.8 (1.1-1.8); Anion Gap 12.3 mEq/L (5-15); Bilirubin,Total 0.2 mg/dL (0.2-1.0); Calcium 8.6 mg/dL (8.5-10.1); Globulin 3.7 gm/dl (1.3-3.2); Potassium 3.3 mmoL/L (3.5-5.1); Total Protein,Serum 6.6 gm/dL (6.4-8.2)
[2018-09-05 18:04] LABS: Creatine Kinase 50 U/L (26-192)
--- NOTE | 2018-09-06 08:51 | History & Physical Report ---
*Admission Date: 09/05/18 *Chief complaint: sob *History of present illness: this wf presented to pcp yesterday with progressive sob and wheezing with prod sputum - pt had been seen several times in office over the last 2 weeks and also in the ed - she had failed op treatment and was sig sx and was seen in the ed - is here in the ER for evaluation from Dr. Alexis's office c/o persistent cough, wheezing, sob and SOTELO. Cough has been productive with green phlegm. Pt seen here in ER last Saturday. Pt given increase in Prednisone dose and Levaquin- pt was admitted as she has failed op care [facility] History I have reviewed the patient's past medical history: Yes Medical History: Reports:: Anxiety, Congestive Heart Failure, Coronary Artery Disease, Depression, Gastroesophageal Reflux Disease(GERD), Hypertension, MRSA Denies:: Cancer, Diabetes Mellitus Type 1, Diabetes Mellitus Type 2 Other Medical History: Reports: Anemia, Arthritis, Fibromyalgia, Hypothyroidism, Thyroid Disease, Other Laterality Cases: Bilateral: Tonsillectomy Other Surgeries: Yes: Angioplasty, Cardiac Catheterization, Cholecystectomy, Colonoscopy, Dilation and Curettage, Hysterectomy-Total, Other (cyst removal on right shoulder.) Amputation: No Fractures: No - *Social History Educational Level: Completed College Smoking Status: Former smoker Tobacco Type: cigarettes # Packs/Day (cigarettes): 1 #Yrs smoked (if former smoker): 20 Alcohol Intake: never Alcohol Intake Frequency:: other Substance Use Type: denies use Occupational Status: employed Housing: house Household Members: family - Psychiatric History Expresses thoughts of harming self/others: None Suicide Plan Description: No Plan Pschychiatric History:: Reports:: Anxiety, Depression *Family Hx:: Anemia, Bleeding Disorder, Cancer, Coronary Artery Disease, Hyperlipidemia, Hypertension, Stroke, Thyroid Disorder Review of Systems - Review of Systems Review of systems:: pertinent systems reviewed and negative unless documented below - Constitutional Reports body ache(s), Reports fever(s) - Eyes Denies change in vision - ENT Denies sore throat - *Cardiovascular Reports shortness of breath, Reports shortness of breath with activity, Denies chest pain with activity - *Respiratory Reports change in phlegm color, Reports cough, Reports excessive phlegm production, Reports pain on inspiration, Denies coughing up blood - *Gastrointestinal Denies abdominal pain - *Genitourinary Denies blood in urine - *Musculoskeletal Denies joint pain, Denies neck pain - Integumentary/Breasts Denies rash - *Neurologic Denies confusion, Denies seizure-like activity, Denies tingling/numbness/burning sensations - Psychiatric Reports anxiety Meds Home Medications Medication Instructions Recorded Confirmed Type estradiol 1 mg tablet 1 mg PO DAILY 10/09/17 09/05/18 History losartan 50 mg tablet 50 mg PO DAILY 10/09/17 09/05/18 History metoclopramide 5 mg tablet 5 mg PO QID 10/09/17 09/05/18 History dicyclomine 10 mg capsule 10 mg PO NEEDED PRN 10/16/17 09/05/18 History Metoprolol Succinate 25 mg PO DAILY 01/11/18 09/05/18 History Potassium Chloride [Micro-K 10mEq 10 meq PO DAILY 01/11/18 09/05/18 History cap] Spironolactone [Aldactone 50mg Tab] 50 mg PO DAILY 01/11/18 09/05/18 History furosemide 40 mg tablet 40 mg PO DAILY PRN tab 01/23/18 09/05/18 History Aspirin [Aspirin 81mg EC Tab] 81 mg PO DAILY 01/31/18 09/05/18 History Hyoscyamine Sulfate 0.125 mg SL DAILYP PRN 01/31/18 09/05/18 History budesonide-formoterol HFA 80 2 puff INHALATION BID 08/25/18 09/05/18 History mcg-4.5 mcg/actuation aerosol inhaler montelukast 10 mg tablet 10 mg PO QHS 30 Days #30 tab 08/25/18 09/05/18 History Omeprazole [Omeprazole 40mg 40 mg PO HS 09/05/18 09/05/18 History Capsule] predniSONE [Deltasone 10mg tablet] 20 mg pe PO BID 09/05/18 09/05/18 History Allergies Allergy/AdvReac Type Severity Reaction Status Date / Time Cephalosporins Allergy RASH Verified 09/01/18 11:46 erythromycin base Allergy Hives Verified 09/01/18 11:46 minocycline Allergy RASH Verified 09/01/18 11:46 penicillin G Allergy Hives Verified 09/01/18 11:46 Sulfa (Sulfonamide Allergy RASH Verified 09/01/18 11:46 Antibiotics) Exam Vital signs and Labs for Last 24 Hours: Temp Pulse Resp BP Pulse Ox 98.9 F 57 L 18 151/83 H 97 09/06/18 08:00 09/06/18 08:00 09/06/18 08:00 09/06/18 08:00 09/06/18 08:00 Laboratory Results - last 24 hr 09/05/18 17:10: WBC 14.8 H, RBC 3.45 L, Hgb 10.7 L, Hct 33.5 L, MCV 97.1, MCH 30.9, MCHC 31.8, RDW 14.5, Plt Count 393, MPV 7.2 L, Neut % (Auto) 69.3, Lymph % (Auto) 25.4, [place] % (Auto) 4.0, Eos % (Auto) 1.1, Baso % (Auto) 0.2, Neut # (Auto) 10.2 H, Lymph # (Auto) 3.8, [place] # (Auto) 0.6, Eos # (Auto) 0.2, Baso # (Auto) 0.0 09/05/18 17:10: Sodium 139, Potassium 3.3 L, Chloride 104, Carbon Dioxide 26, Anion Gap 12.3, BUN 16, Creatinine 1.02, Estimated Creat Clear 102, Estimated GFR 56 L, Est GFR ( Amer) 67, Glucose 92, Calcium 8.6, Total Bilirubin 0.2, AST 11 L, ALT 28, Alkaline Phosphatase 73, Total Protein 6.6, Albumin 2.9 L , Globulin 3.7 H, Albumin/Globulin Ratio 0.8 L 09/05/18 17:10: Lactate 0.7 09/05/18 17:10: Magnesium 1.9, Total Creatine Kinase 50, CK-MB (CK-2) 5.6 H D, Troponin I < 0.02 09/05/18 17:10: B-Natriuretic Peptide 167 H 09/05/18 21:15: Troponin I < 0.02 09/06/18 00:40: Troponin I < 0.02 I & O for Last 24 hours: Intake & Output 09/03/18 09/04/18 09/05/18 09/06/18 11:59 11:59 11:59 11:59 Intake Total 480 / 480 Balance 480 / 480 Weight 239 lb 1 oz - Constitutional no acute distress, obese - *Routine HEENT Exam Head: Present: normocephalic Eye: Present: EOMI, PERRL ENT: Absent: mucous membranes dry - *Routine Neck Exam Present: supple. Absent: JVD - *Routine Respiratory Exam Present: decreased breath sounds, rhonchi, wheezes, distant breath sounds, diminished air movement - *Routine Cardiovascular Exam Present: RRR, murmur, S4 - *Routine Abdominal Exam Present: soft - *Routine Extremities Exam Absent: calf tenderness - *Routine Skin Exam Present: intact - *Routine Neurological Exam Present: alert, oriented X3, CN II-XII intact - Routine Psychiatric Exam Present: normal affect Assessment and Plan (1) Acute bronchitis Current visit: Yes Status: Acute Qualifiers: Bronchitis organism: unspecified organism Qualified Code(s): J20.9 - Acute bronchitis, unspecified Category: Medical Code(s): J20.9 - Acute bronchitis, unspecified (2) Obesity Current visit: Yes Status: Acute Qualifiers: Obesity type: due to excess calories Obesity classification: adult class 3 (BMI >= 40) Serious obesity comorbidity presence: with serious comorbidity Body mass index: BMI 40.0-44.9 Qualified Code(s): E66.01 - Morbid (severe) obesity due to excess calories; Z68.41 - Body mass index (BMI) 40.0-44.9, adult Category: Medical Code(s): E66.9 - Obesity, unspecified (3) Anemia Current visit: Yes Status: Acute Qualifiers: Anemia type: unspecified type Qualified Code(s): D64.9 - Anemia, unspecified Category: Medical Code(s): D64.9 - Anemia, unspecified (4) Hypokalemia Current visit: Yes Status: Acute Category: Medical Code(s): E87.6 - Hypokalemia
--- NOTE | 2018-09-06 09:06 | Pharmacy Consult Notes ---
- Pharmacy Consult Date: 09/06/18 Time: 09:05 Referring provider: DR. PEETRSON Reason for Consult:: VANCOMYCIN DOSING Allergies and ADEs:: Allergies Allergy/AdvReac Type Severity Reaction Status Date / Time Cephalosporins Allergy RASH Verified 09/01/18 11:46 erythromycin base Allergy Hives Verified 09/01/18 11:46 minocycline Allergy RASH Verified 09/01/18 11:46 penicillin G Allergy Hives Verified 09/01/18 11:46 Sulfa (Sulfonamide Allergy RASH Verified 09/01/18 11:46 Antibiotics) Home Medications:: Home Medications Medication Instructions Recorded Confirmed Type estradiol 1 mg tablet 1 mg PO DAILY 10/09/17 09/05/18 History losartan 50 mg tablet 50 mg PO DAILY 10/09/17 09/05/18 History metoclopramide 5 mg tablet 5 mg PO QID 10/09/17 09/05/18 History dicyclomine 10 mg capsule 10 mg PO NEEDED PRN 10/16/17 09/05/18 History Metoprolol Succinate 25 mg PO DAILY 01/11/18 09/05/18 History Potassium Chloride [Micro-K 10mEq 10 meq PO DAILY 01/11/18 09/05/18 History cap] Spironolactone [Aldactone 50mg Tab] 50 mg PO DAILY 01/11/18 09/05/18 History furosemide 40 mg tablet 40 mg PO DAILY PRN tab 01/23/18 09/05/18 History Aspirin [Aspirin 81mg EC Tab] 81 mg PO DAILY 01/31/18 09/05/18 History Hyoscyamine Sulfate 0.125 mg SL DAILYP PRN 01/31/18 09/05/18 History budesonide-formoterol HFA 80 2 puff INHALATION BID 08/25/18 09/05/18 History mcg-4.5 mcg/actuation aerosol inhaler montelukast 10 mg tablet 10 mg PO QHS 30 Days #30 tab 08/25/18 09/05/18 History Omeprazole [Omeprazole 40mg 40 mg PO HS 09/05/18 09/05/18 History Capsule] predniSONE [Deltasone 10mg tablet] 20 mg pe PO BID 09/05/18 09/05/18 History Height: 1.63 m Weight: 108.437 kg Laboratory Results:: Laboratory Results - last 24 hr 09/05/18 17:10: WBC 14.8 H, RBC 3.45 L, Hgb 10.7 L, Hct 33.5 L, MCV 97.1, MCH 30.9, MCHC 31.8, RDW 14.5, Plt Count 393, MPV 7.2 L, Neut % (Auto) 69.3, Lymph % (Auto) 25.4, [place] % (Auto) 4.0, Eos % (Auto) 1.1, Baso % (Auto) 0.2, Neut # (Auto) 10.2 H, Lymph # (Auto) 3.8, [place] # (Auto) 0.6, Eos # (Auto) 0.2, Baso # (Auto) 0.0 09/05/18 17:10: Sodium 139, Potassium 3.3 L, Chloride 104, Carbon Dioxide 26, Anion Gap 12.3, BUN 16, Creatinine 1.02, Estimated Creat Clear 102, Estimated GFR 56 L, Est GFR ( Amer) 67, Glucose 92, Calcium 8.6, Total Bilirubin 0.2, AST 11 L, ALT 28, Alkaline Phosphatase 73, Total Protein 6.6, Albumin 2.9 L , Globulin 3.7 H, Albumin/Globulin Ratio 0.8 L 09/05/18 17:10: Lactate 0.7 09/05/18 17:10: Magnesium 1.9, Total Creatine Kinase 50, CK-MB (CK-2) 5.6 H D, Troponin I < 0.02 09/05/18 17:10: B-Natriuretic Peptide 167 H 09/05/18 21:15: Troponin I < 0.02 09/06/18 00:40: Troponin I < 0.02 Medical History: Reports:: Anxiety, Congestive Heart Failure, Coronary Artery Disease, Depression, Gastroesophageal Reflux Disease(GERD), Hypertension, MRSA Denies:: Cancer, Diabetes Mellitus Type 1, Diabetes Mellitus Type 2 Assessment and Plan (1) Acute bronchitis Current visit: Yes Status: Acute Qualifiers: Bronchitis organism: unspecified organism Qualified Code(s): J20.9 - Acute bronchitis, unspecified Category: Medical Code(s): J20.9 - Acute bronchitis, unspecified (2) Obesity Current visit: Yes Status: Acute Qualifiers: Obesity type: due to excess calories Obesity classification: adult class 3 (BMI >= 40) Serious obesity comorbidity presence: with serious comorbidity Body mass index: BMI 40.0-44.9 Qualified Code(s): E66.01 - Morbid (severe) obesity due to excess calories; Z68.41 - Body mass index (BMI) 40.0-44.9, adult Category: Medical Code(s): E66.9 - Obesity, unspecified (3) Anemia Current visit: Yes Status: Acute Qualifiers: Anemia type: unspecified type Qualified Code(s): D64.9 - Anemia, unspecified Category: Medical Code(s): D64.9 - Anemia, unspecified (4) Hypokalemia Current visit: Yes Status: Acute Category: Medical Code(s): E87.6 - Hypokalemia - Assessment and plan all Dx Assessment and Plan for all problems:: BASED ON PATIENT FACTORS, RECOMMEND VANCOMYCIN 1,750MG IV EVERY 12 HOURS. PHARMACY WILL OBTAIN TROUGH LEVEL PRIOR TO FOURTH DOSE AND WILL THEN ADJUST DOSE APPROPRIATE. -ELENA NICHOLSON, PHARMD
--- NOTE | 2018-09-06 09:07 | Pharmacy Consult Notes ---
[facility] Pharmacy VTE Monitoring - Patient Demographics Admission date: 09/05/18 Report Date: 09/06/18 Time: 09:07 Allergies/Adverse Reactions: Patient Allergies Cephalosporins Allergy (Verified 09/01/18 11:46) RASH erythromycin base Allergy (Verified 09/01/18 11:46) Hives minocycline Allergy (Verified 09/01/18 11:46) RASH penicillin G Allergy (Verified 09/01/18 11:46) Hives Sulfa (Sulfonamide Antibiotics) Allergy (Verified 09/01/18 11:46) RASH Height: 1.63 m Weight: 108.437 kg Patient Problems: Current Active Problems Acute bronchitis (Acute) Bronchospasm, acute (Acute) Multiple drug allergies (Acute) Obesity (Acute) Anemia (Acute) Hypokalemia (Acute) - VTE Risk Labs: VTE Related Lab Results Hgb 10.7 g/dL (12.2-16.2) L 09/05/18 17:10 Hct 33.5 % (37.0-47.0) L 09/05/18 17:10 Plt Count 393 K/mm3 (142-424) 09/05/18 17:10 BUN 16 mg/dL (7-18) 09/05/18 17:10 Creatinine 1.02 mg/dL (0.55-1.02) 09/05/18 17:10 Estimated Creat Clear 102 mL/min (50-200) 09/05/18 17:10 Was VTE Risk Assessment Performed: No - Prophylaxis VTE Prophylaxis Ordered?: Yes Types of VTE Prophylaxis: TEDS Knee High Location of Applied Device: Bilateral Lower Extremeties - VTE Diagnosis Confirmed Treatment or plan recommended: Continue Current Treatment
[2018-09-06 17:57] LABS: Coronavirus 229E Not Detected (NotDetected); Coronavirus NL63 Not Detected (NotDetected); Coronavirus OC43 Not Detected (NotDetected); Coronovirus HKU1,PCR Not Detected (NotDetected)
[2018-09-07 06:27] LABS: Eosinophils # 0.1 K/mm3 (0.0-0.4); Eosinophils % 0.3 % (0.1-12.0); Hematocrit 32.6 % (37.0-47.0); Hemoglobin 10.4 g/dL (12.2-16.2); Lymphocytes # 1.3 K/mm3 (0.7-4.5); Lymphocytes % 7.9 % (10-50); Mean Corpuscular HGB Conc 31.9 g/dL (31.8-35.4); Mean Corpuscular Hemoglobin 31.5 pg (27.0-31.2); Mean Corpuscular Volume 98.9 fl (81-99); Mean Platelet Volume 7.7 fl (7.4-10.4); Monocytes # 0.4 K/mm3 (0.1-1.0); Monocytes % 2.6 % (1.7-9.3); Neutrophils # 14.4 K/mm3 (1.8-7.8); Neutrophils % 89.1 % (37.0-80.0); Platelet Count 348 K/mm3 (142-424); Red Blood Count 3.29 M/mm3 (4.20-5.40); Red Cell Distribution Width 14.6 % (11.5-17.5); White Blood Count 16.2 K/mm3 (4.8-10.8)
[2018-09-07 06:52] LABS: Calcium 8.5 mg/dL (8.5-10.1)
[2018-09-07 07:09] LABS: Vancomycin,Trough 19.2 mcg/ml (10.0-20.0)
[2018-09-07 07:17] LABS: Hypochromasia 1+; Lymphocytes % 5 % (10-50); Monocytes % 2 % (2-9); Neutrophils % 92 % (42-76); Polychromasia 1+; Rouleaux 1+; Total Cells Counted 100
--- NOTE | 2018-09-07 10:11 | Progress Note ---
Internal Medicine - PN: Subj *Date: 09/07/18 *Time: 10:10 Interval history: Today patient states she feels a little bit better. Patient states she is decreased on coughing but is having some pain in her left rib area she believes from coughing. Exam Vital signs and Labs for Last 24 Hours: Temp Pulse Resp BP Pulse Ox 97.9 F 57 L 18 102/55 L 98 09/07/18 08:00 09/07/18 08:00 09/07/18 08:00 09/07/18 08:00 09/07/18 08:00 Laboratory Results - last 24 hr 09/06/18 17:45: Chlamy pneumoniae PCR Not detected, Adenovirus (PCR) Not detected, B. pertussis DNA (PCR) Not detected, Coronavirus OC43 (PCR) Not de tected, Coronavirus HKU1 (PCR) Not detected, Coronavirus 229E (PCR) Not detected, Coronavirus NL63 (PCR) Not detected, Human Metapneumovir PCR Not detected, Influenza A (H1) PCR Not detected, Influ A (H1N1/09) PCR Not detected, Influenza A (H3) PCR Not detected, Influenza Type A (PCR) Not detected, Influenza Type B (PCR) Not detected, M. pneumoniae (PCR) Not detected, Parainfluenza 1 (PCR) Not detected, Parainfluenza 2 (PCR) Not detected, Parainfluenza 3 (PCR) Not detected, Parainfluenza 4 (PCR) Not detected, RSV (PCR) Not detected, Entero/Rhino (PCR) Not detected 09/07/18 05:50: WBC 16.2 H, RBC 3.29 L, Hgb 10.4 L, Hct 32.6 L, MCV 98.9, MCH 31.5 H, MCHC 31.9, RDW 14.6, Plt Count 348, MPV 7.7, Neut % (Auto) 89.1 H, Lymph % (Auto) 7.9 L, [place] % (Auto) 2.6, Eos % (Auto) 0.3, Baso % (Auto) 0.0 L, Neut # (Auto) 14.4 H, Lymph # (Auto) 1.3, [place] # (Auto) 0.4, Eos # (Auto) 0.1, Baso # (Auto) 0.0, Total Counted 100, Neutrophils % (Manual) 92 H, Band Neutrophils % 1.0, Lymphocytes % (Manual) 5 L, Monocytes % (Manual) 2, Platelet Estimate Normal, Polychromasia 1+, Hypochromasia 1+, Rouleaux 1+ 09/07/18 05:50: Sodium 140, Potassium 5.0 D, Chloride 107, Carbon Dioxide 27, Anion Gap 11.0, BUN 19 H, Creatinine 0.95, Estimated Creat Clear 110, Estimated GFR 60, Est GFR ( Amer) 73, Glucose 130 H, Calcium 8.5, Vancomycin Trough 19.2 I & O for Last 24 hours: Intake & Output 09/04/18 09/05/18 09/06/18 09/07/18 11:59 11:59 11:59 11:59 Intake Total 480 / 480 19390 Balance 480 / 480 19390 Weight 239 lb 1 oz 244 lb 2 oz Microbiology Reports for the Last 24 Hours: Microbiology 09/05/18 17:24 Blood Blood Culture - Preliminary 09/05/18 08:59 Sputum - Expectorated Sputum Gram Stain - Final - *Routine HEENT Exam Head: Present: normocephalic Eye: Present: PERRL ENT: Present: mucous membranes moist - *Routine Neck Exam Present: supple. Absent: lymphadenopathy - *Routine Respiratory Exam Present: wheezes - *Routine Cardiovascular Exam Present: RRR - *Routine Abdominal Exam Present: soft, normoactive bowel sounds. Absent: tenderness - *Routine Extremities Exam Absent: cyanosis, clubbing, edema - *Routine Skin Exam Present: warm. Absent: rash - *Routine Neurological Exam Present: alert, oriented X3 - Routine Psychiatric Exam Present: normal affect Assessment and Plan (1) Acute bronchitis Current visit: Yes Status: Acute Qualifiers: Bronchitis organism: unspecified organism Qualified Code(s): J20.9 - Acute bronchitis, unspecified Category: Medical Code(s): J20.9 - Acute bronchitis, unspecified (2) Obesity Current visit: Yes Status: Acute Qualifiers: Obesity type: due to excess calories Obesity classification: adult class 3 (BMI >= 40) Serious obesity comorbidity presence: with serious comorbidity Body mass index: BMI 40.0-44.9 Qualified Code(s): E66.01 - Morbid (severe) obesity due to excess calories; Z68.41 - Body mass index (BMI) 40.0-44.9, adult Category: Medical Code(s): E66.9 - Obesity, unspecified (3) Anemia Current visit: Yes Status: Acute Qualifiers: Anemia type: unspecified type Qualified Code(s): D64.9 - Anemia, unspecified Category: Medical Code(s): D64.9 - Anemia, unspecified (4) Hypokalemia Current visit: Yes Status: Acute Category: Medical Code(s): E87.6 - Hypokalemia - Assessment and plan all Dx Assessment and Plan for all problems:: Discussed patient with Dr. Chairez, Dr. Chairez wall room later today, all orders per Dr. Chairez
--- NOTE | 2018-09-07 10:46 | Pharmacy Consult Notes ---
- Pharmacy Consult Date: 09/07/18 Time: 10:45 Referring provider: DR. PETERSON Reason for Consult:: VANCOMYCIN TROUGH AND DOSE CHANGE Allergies and ADEs:: Allergies Allergy/AdvReac Type Severity Reaction Status Date / Time Cephalosporins Allergy RASH Verified 09/01/18 11:46 erythromycin base Allergy Hives Verified 09/01/18 11:46 minocycline Allergy RASH Verified 09/01/18 11:46 penicillin G Allergy Hives Verified 09/01/18 11:46 Sulfa (Sulfonamide Allergy RASH Verified 09/01/18 11:46 Antibiotics) Home Medications:: Home Medications Medication Instructions Recorded Confirmed Type estradiol 1 mg tablet 1 mg PO DAILY 10/09/17 09/05/18 History losartan 50 mg tablet 50 mg PO DAILY 10/09/17 09/05/18 History metoclopramide 5 mg tablet 5 mg PO QID 10/09/17 09/05/18 History dicyclomine 10 mg capsule 10 mg PO NEEDED PRN 10/16/17 09/05/18 History Metoprolol Succinate 25 mg PO DAILY 01/11/18 09/05/18 History Potassium Chloride [Micro-K 10mEq 10 meq PO DAILY 01/11/18 09/05/18 History cap] Spironolactone [Aldactone 50mg Tab] 50 mg PO DAILY 01/11/18 09/05/18 History furosemide 40 mg tablet 40 mg PO DAILY PRN tab 01/23/18 09/05/18 History Aspirin [Aspirin 81mg EC Tab] 81 mg PO DAILY 01/31/18 09/05/18 History Hyoscyamine Sulfate 0.125 mg SL DAILYP PRN 01/31/18 09/05/18 History budesonide-formoterol HFA 80 2 puff INHALATION BID 08/25/18 09/05/18 History mcg-4.5 mcg/actuation aerosol inhaler montelukast 10 mg tablet 10 mg PO HS 30 Days #30 tab 08/25/18 09/06/18 History Omeprazole [Omeprazole 40mg 40 mg PO HS 09/05/18 09/05/18 History Capsule] predniSONE [Deltasone 10mg tablet] 20 mg pe PO BID 09/05/18 09/05/18 History Trazodone HCl 200 mg PO HSP PRN 09/06/18 09/06/18 History Height: 1.63 m Weight: 110.733 kg Laboratory Results:: Laboratory Results - last 24 hr 09/06/18 17:45: Chlamy pneumoniae PCR Not detected, Adenovirus (PCR) Not detected, B. pertussis DNA (PCR) Not detected, Coronavirus OC43 (PCR) Not detected, Coronavirus HKU1 (PCR) Not detected, Coronavirus 229E (PCR) Not detected, Coronavirus NL63 (PCR) Not detected, Human Metapneumovir PCR Not detected, Influenza A (H1) PCR Not detected, Influ A (H1N1/09) PCR Not detected, Influenza A (H3) PCR Not detected, Influenza Type A (PCR) Not detected, Influenza Type B (PCR) Not detected, M. pneumoniae (PCR) Not detected, Parainfluenza 1 (PCR) Not detected, Parainfluenza 2 (PCR) Not detected, Parainfluenza 3 (PCR) Not detected, Parainfluenza 4 (PCR) Not detected, RSV (PCR) Not detected, Entero/Rhino (PCR) Not detected 09/07/18 05:50: WBC 16.2 H, RBC 3.29 L, Hgb 10.4 L, Hct 32.6 L, MCV 98.9, MCH 31.5 H, MCHC 31.9, RDW 14.6, Plt Count 348, MPV 7.7, Neut % (Auto) 89.1 H, Lymph % (Auto) 7.9 L, [place] % (Auto) 2.6, Eos % (Auto) 0.3, Baso % (Auto) 0.0 L, Neut # (Auto) 14.4 H, Lymph # (Auto) 1.3, [place] # (Auto) 0.4, Eos # (Auto) 0.1, Baso # ( Auto) 0.0, Total Counted 100, Neutrophils % (Manual) 92 H, Band Neutrophils % 1.0, Lymphocytes % (Manual) 5 L, Monocytes % (Manual) 2, Platelet Estimate Normal, Polychromasia 1+, Hypochromasia 1+, [place] 1+ 09/07/18 05:50: Sodium 140, Potassium 5.0 D, Chloride 107, Carbon Dioxide 27, Anion Gap 11.0, BUN 19 H, Creatinine 0.95, Estimated Creat Clear 110, Estimated GFR 60, Est GFR ( Amer) 73, Glucose 130 H, Calcium 8.5, Vancomycin Trough 19.2 Medical History: Reports:: Anxiety, Congestive Heart Failure, Coronary Artery Disease, Depression, Gastroesophageal Reflux Disease(GERD), Hypertension, MRSA Denies:: Cancer, Diabetes Mellitus Type 1, Diabetes Mellitus Type 2 Assessment and Plan (1) Acute bronchitis Current visit: Yes Status: Acute Qualifiers: Bronchitis organism: unspecified organism Qualified Code(s): J20.9 - Acute bronchitis, unspecified Category: Medical Code(s): J20.9 - Acute bronchitis, unspecified (2) Obesity Current visit: Yes Status: Acute Qualifiers: Obesity type: due to excess calories Obesity classification: adult class 3 (BMI >= 40) Serious obesity comorbidity presence: with serious comorbidity Body mass index: BMI 40.0-44.9 Qualified Code(s): E66.01 - Morbid (severe) obesity due to excess calories; Z68.41 - Body mass index (BMI) 40.0-44.9, adult Category: Medical Code(s): E66.9 - Obesity, unspecified (3) Anemia Current visit: Yes Status: Acute Qualifiers: Anemia type: unspecified type Qualified Code(s): D64.9 - Anemia, unspecified Category: Medical Code(s): D64.9 - Anemia, unspecified (4) Hypokalemia Current visit: Yes Status: Acute Category: Medical Code(s): E87.6 - Hypokalemia - Assessment and plan all Dx Assessment and Plan for all problems:: BASED ON PATIENT FACTORS AND TROUGH LEVEL OF 19.2, RECOMMEND SLIGHTLY DECREASING VANCOMYCIN DOSE TO 1,250MG IV EVERY 12 HOURS. PHARMACY WILL CONTINUE TO MONITOR AND WILL ADJUST DOSE APPROPRIATE. -ELENA NICHOLOSN PHARMD
--- NOTE | 2018-09-08 13:06 | Progress Note ---
Internal Medicine - PN: Subj *Date: 09/08/18 *Time: 08:30 Interval history: doing better - will need pic line for vanc - blood culture pending Exam Vital signs and Labs for Last 24 Hours: Temp Pulse Resp BP Pulse Ox 97.6 F 65 16 115/45 L 96 09/08/18 08:00 09/08/18 08:00 09/08/18 11:12 09/08/18 08:00 09/08/18 08:00 I & O for Last 24 hours: Intake & Output 09/06/18 09/07/18 09/08/18 09/09/18 11:59 11:59 11:59 11:59 Intake Total 480 / 480 1940 / 1940 2670 / 2670 Balance 480 / 480 1940 / 1940 2670 / 2670 Weight 239 lb 1 oz 244 lb 2 oz 249 lb 14 oz Microbiology Reports for the Last 24 Hours: Microbiology 09/05/18 17:24 Blood Blood Culture - Preliminary Gram Positive Cocci 09/05/18 08:59 Sputum - Expectorated Sputum Gram Stain - Final 09/05/18 08:59 Sputum - Expectorated Sputum Sputum Culture - Preliminary 09/05/18 17:24 Blood Blood Culture - Preliminary NO GROWTH AFTER 48 HOURS - Constitutional no acute distress, obese - *Routine HEENT Exam Head: Present: normocephalic Eye: Present: EOMI, PERRL ENT: Present: mucous membranes dry - *Routine Neck Exam Present: supple - *Routine Respiratory Exam Present: decreased breath sounds - *Routine Cardiovascular Exam Present: RRR, murmur - *Routine Abdominal Exam Present: soft - *Routine Extremities Exam Absent: calf tenderness - *Routine Skin Exam Present: intact - *Routine Neurological Exam Present: alert, oriented X3, CN II-XII intact - Routine Psychiatric Exam Present: normal affect Assessment and Plan (1) Acute bronchitis Current visit: Yes Status: Acute Qualifiers: Bronchitis organism: unspecified organism Qualified Code(s): J20.9 - Acute bronchitis, unspecified Category: Medical Code(s): J20.9 - Acute bronchitis, unspecified (2) Obesity Current visit: Yes Status: Acute Qualifiers: Obesity type: due to excess calories Obesity classification: adult class 3 (BMI >= 40) Serious obesity comorbidity presence: with serious comorbidity Body mass index: BMI 40.0-44.9 Qualified Code(s): E66.01 - Morbid (severe) obesity due to excess calories; Z68.41 - Body mass index (BMI) 40.0-44.9, adult Category: Medical Code(s): E66.9 - Obesity, unspecified (3) Anemia Current visit: Yes Status: Acute Qualifiers: Anemia type: unspecified type Qualified Code(s): D64.9 - Anemia, unspecified Category: Medical Code(s): D64.9 - Anemia, unspecified (4) Hypokalemia Current visit: Yes Status: Acute Category: Medical Code(s): E87.6 - Hypokalemia
--- NOTE | 2018-09-09 08:16 | Pharmacy Consult Notes ---
- Pharmacy Consult Date: 09/09/18 Time: 08:14 Referring provider: DR. PETERSON Reason for Consult:: VANCOMYCIN TROUGH LEVEL AND DOSE CHANGE Allergies and ADEs:: Allergies Allergy/AdvReac Type Severity Reaction Status Date / Time Cephalosporins Allergy RASH Verified 09/01/18 11:46 erythromycin base Allergy Hives Verified 09/01/18 11:46 minocycline Allergy RASH Verified 09/01/18 11:46 penicillin G Allergy Hives Verified 09/01/18 11:46 Sulfa (Sulfonamide Allergy RASH Verified 09/01/18 11:46 Antibiotics) Home Medications:: Home Medications Medication Instructions Recorded Confirmed Type estradiol 1 mg tablet 1 mg PO DAILY 10/09/17 09/05/18 History losartan 50 mg tablet 50 mg PO DAILY 10/09/17 09/05/18 History metoclopramide 5 mg tablet 5 mg PO QID 10/09/17 09/05/18 History dicyclomine 10 mg capsule 10 mg PO NEEDED PRN 10/16/17 09/05/18 History Metoprolol Succinate 25 mg PO DAILY 01/11/18 09/05/18 History Potassium Chloride [Micro-K 10mEq 10 meq PO DAILY 01/11/18 09/05/18 History cap] Spironolactone [Aldactone 50mg Tab] 50 mg PO DAILY 01/11/18 09/05/18 History furosemide 40 mg tablet 40 mg PO DAILY PRN tab 01/23/18 09/05/18 History Aspirin [Aspirin 81mg EC Tab] 81 mg PO DAILY 01/31/18 09/05/18 History Hyoscyamine Sulfate 0.125 mg SL DAILYP PRN 01/31/18 09/05/18 History budesonide-formoterol HFA 80 2 puff INHALATION BID 08/25/18 09/05/18 History mcg-4.5 mcg/actuation aerosol inhaler montelukast 10 mg tablet 10 mg PO HS 30 Days #30 tab 08/25/18 09/06/18 History Omeprazole [Omeprazole 40mg 40 mg PO HS 09/05/18 09/05/18 History Capsule] predniSONE [Deltasone 10mg tablet] 20 mg pe PO BID 09/05/18 09/05/18 History Trazodone HCl 200 mg PO HSP PRN 09/06/18 09/06/18 History Height: 1.63 m Weight: 112.945 kg Laboratory Results:: Laboratory Results - last 24 hr 09/09/18 07:00: Vancomycin Trough 21.4 H Medical History: Reports:: Anxiety, Congestive Heart Failure, Coronary Artery Disease, Depression, Gastroesophageal Reflux Disease(GERD), Hypertension, MRSA Denies:: Cancer, Diabetes Mellitus Type 1, Diabetes Mellitus Type 2 Assessment and Plan (1) Acute bronchitis Current visit: Yes Status: Acute Qualifiers: Bronchitis organism: unspecified organism Qualified Code(s): J20.9 - Acute bronchitis, unspecified Category: Medical Code(s): J20.9 - Acute bronchitis, unspecified (2) Obesity Current visit: Yes Status: Acute Qualifiers: Obesity type: due to excess calories Obesity classification: adult class 3 (BMI >= 40) Serious obesity comorbidity presence: with serious comorbidity Body mass index: BMI 40.0-44.9 Qualified Code(s): E66.01 - Morbid (severe) obesity due to excess calories; Z68.41 - Body mass index (BMI) 40.0-44.9, adult Category: Medical Code(s): E66.9 - Obesity, unspecified (3) Anemia Current visit: Yes Status: Acute Qualifiers: Anemia type: unspecified type Qualified Code(s): D64.9 - Anemia, unspecified Category: Medical Code(s): D64.9 - Anemia, unspecified (4) Hypokalemia Current visit: Yes Status: Acute Category: Medical Code(s): E87.6 - Hypokalemia - Assessment and plan all Dx Assessment and Plan for all problems:: PATIENT'S VANCOMYCIN TROUGH LEVEL WAS 20.4 MCG/ML THIS AM PRIOR TO DOSE. RECOMMEND CHANGING VANCOMYCIN DOSE AND INTERVAL TO 2000 MG Q24H AT THIS TIME. WILL HOLD NEXT DOSE TO 1300 TODAY. PHARMACY WILL FOLLOW DAILY AND ADJUST APPROPRIATE. TRESA OCHOA, PHARMD
--- NOTE | 2018-09-09 09:29 | Discharge Summary ---
General - General Admission date:: 09/05/18 Discharge date: 09/09/18 HPI HPI: this wf presented to pcp yesterday with progressive sob and wheezing with prod sputum - pt had been seen several times in office over the last 2 weeks and also in the ed - she had failed op treatment and was sig sx and was seen in the ed - is here in the ER for evaluation from Dr. Alexis's office c/o persistent cough, wheezing, sob and SOTELO. Cough has been productive with green phlegm. Pt seen here in ER last Saturday. Pt given increase in Prednisone dose and Levaquin- pt was admitted as she has failed op care Hospital Course Hospital Course: IV antibiotics-patient failed p.o. outpatient therapy of Levaquin. Due to patient's multiple allergies she was admitted for IV vancomycin due to history of MRSA in sputum. Patient states that he is feeling better would like to go home we will continue vancomycin for 6 more days. Patient to follow-up in the office. Objective Vital signs: Temp Pulse Resp BP Pulse Ox 97.7 F 85 16 116/58 L 99 09/09/18 08:00 09/09/18 08:00 09/09/18 08:00 09/09/18 08:00 09/09/18 08:00 no acute distress - *Routine HEENT Exam Head: Present: normocephalic Eye: Present: PERRL ENT: Present: mucous membranes moist - *Routine Neck Exam Present: full ROM - *Routine Respiratory Exam Present: wheezes - *Routine Cardiovascular Exam Present: RRR - *Routine Abdominal Exam Present: soft, normoactive bowel sounds - *Routine Extremities Exam Present: full ROM - *Routine Skin Exam Present: intact - *Routine Neurological Exam Present: alert, oriented X3 - Routine Psychiatric Exam Present: normal affect, normal thought process Results Labs on day of discharge: Labs from last 24 hours 09/09/18 07:00 Vancomycin Trough 21.4 H Preliminary micro results at discharge 09/05/18 17:24 Blood Culture - Preliminary Blood Staphylococcus epidermidis 09/05/18 08:59 Sputum Culture - Preliminary Sputum - Expectorated Sputum 09/05/18 17:24 Blood Culture - Preliminary Blood NO GROWTH AFTER 48 HOURS - Additional Comments Rounded with Dr. Chairez all orders per Mihaela DS: Diagnosis - Discharge Diagnosis (1) Acute bronchitis Status: Acute (2) Obesity Status: Acute (3) Anemia Status: Acute (4) Hypokalemia Status: Acute Discharge Plan - Patient Discharge Instructions ACTIVITY: Continue current activity DIET: continue same diet Patient Instructions: DI for Acute Bronchitis, DI for Shortness of Breath, Peripherally Inserted Central Catheter - Follow up Plan Follow up with: Sadie Mathis APRN [Nurse Practitioner] - 1 week Disposition: Home, Self-Snf Medications: Home Medications Medication Instructions Recorded Confirmed Type estradiol 1 mg tablet 1 mg PO DAILY 10/09/17 09/05/18 History losartan 50 mg tablet 50 mg PO DAILY 10/09/17 09/05/18 History metoclopramide 5 mg tablet 5 mg PO QID 10/09/17 09/05/18 History dicyclomine 10 mg capsule 10 mg PO NEEDED PRN 10/16/17 09/05/18 History Metoprolol Succinate 25 mg PO DAILY 01/11/18 09/05/18 History Potassium Chloride [Micro-K 10mEq 10 meq PO DAILY 01/11/18 09/05/18 History cap] Spironolactone [Aldactone 50mg Tab] 50 mg PO DAILY 01/11/18 09/05/18 History furosemide 40 mg tablet 40 mg PO DAILY PRN tab 01/23/18 09/05/18 History Aspirin [Aspirin 81mg EC Tab] 81 mg PO DAILY 01/31/18 09/05/18 History Hyoscyamine Sulfate 0.125 mg SL DAILYP PRN 01/31/18 09/05/18 History budesonide-formoterol HFA 80 2 puff INHALATION BID 08/25/18 09/05/18 History mcg-4.5 mcg/actuation aerosol inhaler montelukast 10 mg tablet 10 mg PO HS 30 Days #30 tab 08/25/18 09/06/18 History Omeprazole [Omeprazole 40mg 40 mg PO HS 09/05/18 09/05/18 History Capsule] predniSONE [Deltasone 10mg tablet] 20 mg pe PO BID 09/05/18 09/05/18 History Trazodone HCl 200 mg PO HSP PRN 09/06/18 09/06/18 History Prescriptions/Medication Reconciliation: New Ipratropium/Albuterol Sulfate [Duoneb 3mL neb] 3 ml IH Q6H ampul.neb Hydrocod/Acet 5/325 mg [[place] 5/325mg tablet] 1 tab PO BID 3 Days #6 tab Ibuprofen [Motrin 400mg tablet] 400 mg PO Q6HP PRN tablet PRN Reason: Mild Pain Vancomycin HCl [Vancomycin 1000mg Vial] 2,000 mg IV Q24H 6 Days #6 vial Continue estradiol 1 mg tablet 1 mg PO DAILY losartan 50 mg tablet 50 mg PO DAILY metoclopramide 5 mg tablet 5 mg PO QID dicyclomine 10 mg capsule 10 mg PO NEEDED PRN PRN Reason: IBS furosemide 40 mg tablet 40 mg PO DAILY PRN tab PRN Reason: fluid levothyroxine 75 mcg tablet 75 mcg PO DAILY #30 tab montelukast 10 mg tablet 10 mg PO HS 30 Days #30 tab budesonide-formoterol HFA 80 mcg-4.5 mcg/actuation aerosol inhaler 2 puff INHALATION BID gabapentin 800 mg tablet 800 mg PO QID #120 tab albuterol sulfate HFA 90 mcg/actuation aerosol inhaler 2 inh INHALATION Q4-6H PRN #1 inh PRN Reason: Shortness Of Breath Or Wheezing fluticasone 50 mcg/actuation nasal spray,suspension 2 spray INTRANASAL DAILY #16 g Spironolactone [Aldactone 50mg Tab] 50 mg PO DAILY Potassium Chloride [Micro-K 10mEq cap] 10 meq PO DAILY Metoprolol Succinate 25 mg PO DAILY Hyoscyamine Sulfate 0.125 mg SL DAILYP PRN PRN Reason: IBS predniSONE [Deltasone 10mg tablet] 20 mg pe PO BID Aspirin [Aspirin 81mg EC Tab] 81 mg PO DAILY Omeprazole [Omeprazole 40mg Capsule] 40 mg PO HS Trazodone HCl 200 mg PO HSP PRN PRN Reason: Insomnia
== END 2018-09-09 12:30 | disposition home or self-care (01) ==
LOC: 2ND 16:55 → ER 16:55 → 2ND 19:02
PROVIDERS: ADMIT Emergency Medicine; ATTEND Emergency Medicine

== ENCOUNTER 2018-09-10 12:19 | Outpatient (CLI) | payer BC, SELFPAY ==
[2018-09-10 12:32] VITALS: BP 116/58; PULSE 75; RESP 18; TEMP 36.4; O2SAT 96
[2018-09-10 13:02] VITALS: BP 118/61; PULSE 78; RESP 18; O2SAT 97
[2018-09-10 13:32] VITALS: BP 121/62; PULSE 77; RESP 18; O2SAT 97
[2018-09-10 14:02] VITALS: BP 117/67; PULSE 74; RESP 18; O2SAT 96
[2018-09-10 14:30] VITALS: BP 115/69; PULSE 76; RESP 18; O2SAT 97
== END 2018-09-10 14:35 | disposition home or self-care (01) ==
LOC: INF 12:19
PROVIDERS: Visit Provider Emergency Medicine
DX: J20.9 Acute bronchitis, unspecified (principal)
CPT/HCPCS: 96365; 96366; J3370

== ENCOUNTER 2018-09-11 12:21 | Outpatient (CLI) | payer BC, SELFPAY ==
[2018-09-11 12:38] VITALS: BP 120/62; PULSE 52; RESP 18; TEMP 36.5; O2SAT 100
[2018-09-11 13:08] VITALS: BP 116/67; PULSE 54; RESP 18; O2SAT 99
[2018-09-11 13:38] VITALS: BP 121/61; PULSE 56; RESP 18; O2SAT 99
[2018-09-11 14:08] VITALS: BP 115/67; PULSE 58; RESP 18; O2SAT 100
[2018-09-11 14:38] VITALS: BP 111/69; PULSE 59; RESP 18; O2SAT 99
[2018-09-11 14:45] VITALS: BP 109/62; PULSE 58; RESP 18; O2SAT 99
== END 2018-09-11 14:45 | disposition home or self-care (01) ==
LOC: INF 12:21
PROVIDERS: Visit Provider Emergency Medicine
DX: J20.9 Acute bronchitis, unspecified (principal)
CPT/HCPCS: 96365; 96366; J3370

== ENCOUNTER 2018-09-12 11:25 | Outpatient (CLI) | payer BC, SELFPAY ==
[2018-09-12 11:32] VITALS: BMI 38.2
[2018-09-12 12:05] LABS: Anion Gap 12.2 mEq/L (5-15); Blood Urea Nitrogen 17 mg/dL (7-18); Calcium 8.3 mg/dL (8.5-10.1); Carbon Dioxide 28 mmol/L (21.0-32.0); Chloride 102 mmol/L (98-107); Creatinine Clearance Estimated 108 mL/min (50-200); Creatinine,Serum 0.91 mg/dL (0.55-1.02); Estimated Glomerular Filt Rate 63 ml/min (>60); GFR (African American) 77 ML/MIN (>60); Glucose 137 mg/dL (74-106); Potassium 4.2 mmoL/L (3.5-5.1); Sodium 138 mmol/L (136-145); Vancomycin,Trough 12.6 mcg/ml (10.0-20.0)
--- NOTE | 2018-09-12 12:35 | HMH.PHACONS ---
- Pharmacy Consult Date: 09/12/18 Time: 12:35 Referring provider: DR. PETERSON Reason for Consult:: VANCOMYCIN TROUGH LEVEL Allergies and ADEs:: Allergies Allergy/AdvReac Type Severity Reaction Status Date / Time Cephalosporins Allergy RASH Verified 09/01/18 11:46 erythromycin base Allergy Hives Verified 09/01/18 11:46 minocycline Allergy RASH Verified 09/01/18 11:46 penicillin G Allergy Hives Verified 09/01/18 11:46 Sulfa (Sulfonamide Allergy RASH Verified 09/01/18 11:46 Antibiotics) Home Medications:: Home Medications Medication Instructions Recorded Confirmed Type estradiol 1 mg tablet 1 mg PO DAILY 10/09/17 09/11/18 History losartan 50 mg tablet 50 mg PO DAILY 10/09/17 09/11/18 History metoclopramide 5 mg tablet 5 mg PO QID 10/09/17 09/11/18 History dicyclomine 10 mg capsule 10 mg PO NEEDED PRN 10/16/17 09/11/18 History Metoprolol Succinate 25 mg PO DAILY 01/11/18 09/11/18 History Potassium Chloride [Micro-K 10mEq 10 meq PO DAILY 01/11/18 09/11/18 History cap] Spironolactone [Aldactone 50mg Tab] 50 mg PO DAILY 01/11/18 09/11/18 History furosemide 40 mg tablet 40 mg PO DAILY PRN tab 01/23/18 09/11/18 History Aspirin [Aspirin 81mg EC Tab] 81 mg PO DAILY 01/31/18 09/11/18 History Hyoscyamine Sulfate 0.125 mg SL DAILYP PRN 01/31/18 09/11/18 History budesonide-formoterol HFA 80 2 puff INHALATION BID 08/25/18 09/11/18 History mcg-4.5 mcg/actuation aerosol inhaler montelukast 10 mg tablet 10 mg PO HS 30 Days #30 tab 08/25/18 09/11/18 History Omeprazole [Omeprazole 40mg 40 mg PO HS 09/05/18 09/11/18 History Capsule] Trazodone HCl 200 mg PO HSP PRN 09/06/18 09/11/18 History Hydrocod/Acet 5/325 mg [[place] 1 tab PO BID 09/10/18 09/11/18 History 5/325mg tablet] Ipratropium/Albuterol Sulfate 3 ml IH Q6H 09/10/18 09/11/18 History [Duoneb 3mL neb] Vancomycin HCl [Vancomycin 1000mg 2,000 mg IV Q24H 09/10/18 09/11/18 History Vial] Height: 1.63 m Weight: 101.151 kg Laboratory Results:: Laboratory Results - last 24 hr 09/12/18 11:35: Vancomycin Trough 12.6 09/12/18 11:35: Sodium 138, Potassium 4.2, Chloride 102, Carbon Dioxide 28, Anion Gap 12.2, BUN 17, Creatinine 0.91, Estimated Creat Clear 108, Estimated GFR 63, Est GFR ( Amer) 77, Glucose 137 H, Calcium 8.3 L Medical History: Reports:: Anxiety, Congestive Heart Failure, Coronary Artery Disease, Depression, Gastroesophageal Reflux Disease(GERD), Hypertension, MRSA Denies:: Cancer, Diabetes Mellitus Type 1, Diabetes Mellitus Type 2 Assessment and Plan - Assessment and plan all Dx Assessment and Plan for all problems:: ASED ON VANCOMYCIN LEVEL OF 12.6, RECOMMEND CONTINUING VANCOMYCIN 2GM DAILY FOR THE REST OF ANTIBIOTIC COURSE. PHARMACY WILL CONTINUE TO MONITOR. -ELENA NICHOLSON, JAYCEED
[2018-09-12 12:45] VITALS: BP 135/75; PULSE 67; RESP 20; TEMP 36.9; O2SAT 96
[2018-09-12 13:15] VITALS: BP 136/74; PULSE 68; RESP 20; TEMP 36.9; O2SAT 95
[2018-09-12 13:45] VITALS: BP 136/74; PULSE 68; RESP 20; TEMP 36.9; O2SAT 95
[2018-09-12 14:15] VITALS: BP 136/74; PULSE 78; RESP 20; TEMP 36.9; O2SAT 95
[2018-09-12 14:30] VITALS: BP 136/74; PULSE 68; RESP 20; TEMP 36.9; O2SAT 95
== END 2018-09-12 14:30 | disposition home or self-care (01) ==
LOC: INF 11:30
PROVIDERS: Visit Provider Emergency Medicine
DX: J20.9 Acute bronchitis, unspecified (principal)
CPT/HCPCS: 80048; 80202; 96365; 96366; J3370

== ENCOUNTER → 2018-09-13 12:46 | Outpatient (CLI) | payer BC, SELFPAY ==
[2018-09-13 13:00] VITALS: BP 131/72; PULSE 66; RESP 16; TEMP 37; O2SAT 96; BMI 40.6
[2018-09-13 15:44] VITALS: BP 131/75; PULSE 61; RESP 18; TEMP 36.8; O2SAT 95
== END ==
PROVIDERS: PCP Emergency Medicine; Visit Provider Emergency Medicine
DX: J20.9 Acute bronchitis, unspecified (principal)
CPT/HCPCS: 96365; 96366; J3370

== ENCOUNTER → 2018-09-14 12:17 | Outpatient (CLI) | payer BC, SELFPAY ==
[2018-09-14 12:30] VITALS: BP 114/58; PULSE 61; RESP 16; TEMP 37; O2SAT 99
[2018-09-14 15:10] VITALS: BP 112/59; PULSE 55; RESP 16; TEMP 36.8; O2SAT 96
== END ==
PROVIDERS: PCP Emergency Medicine; Visit Provider Emergency Medicine
DX: J20.9 Acute bronchitis, unspecified (principal)
CPT/HCPCS: 96365; 96366; J3370

== ENCOUNTER 2018-09-15 12:45 | Outpatient (CLI) | payer BC, SELFPAY ==
[2018-09-15 13:00] VITALS: BP 129/73; PULSE 67; RESP 20; TEMP 36.9; O2SAT 98
[2018-09-15 14:00] VITALS: BP 135/70; PULSE 68; RESP 20; TEMP 36.9; O2SAT 96
[2018-09-15 15:00] VITALS: BP 126/70; PULSE 68; RESP 20; TEMP 37.1; O2SAT 95
== END 2018-09-15 15:00 | disposition home or self-care (01) ==
LOC: INF 12:45
PROVIDERS: Visit Provider Emergency Medicine
DX: J20.9 Acute bronchitis, unspecified (principal)
CPT/HCPCS: 96365; 96366; 96372; J3370

== ENCOUNTER 2018-09-25 12:03 | Outpatient (CLI) | payer BC, SELFPAY ==
--- NOTE | 2018-09-25 12:06 | XR_ITS ---
XR chest 2V HISTORY: Congestion bronchiolitis was feeling better now increased cough past 2 days ITS.REASON: cough ORDERING PHYSICIAN: Sadie Mathis PATIENT AGE: 58 years Technique: PA lateral chest. COMPARISON: September 05, 2018 FINDINGS:. PICC line enters from left arm with tip at SVC The patient is chronic prominence and coarsening of central. May reflect chronic bronchitis changes.. Similar appearance on 09/16/2018 CXR. Difficult to exclude mild accentuation of this central markings and possible mild additional perihilar infiltrate on right today. Again most likely reflecting central airway inflammatory changes/bronchitis. . No peripheral pneumonia. No pneumothorax. No pleural effusion. . Cardiac megaly. . Heart size is slightly larger today than July 2018. IMPRESSION... Cardiomegaly very slightly more evident today. But no overt CHF Coarsening of central markings again seen, mainly reflecting chronic bronchitis. Only Question possible very slight additional prominence of central markings on the right today- possible reflects subtle additional perihilar infiltrate/slight additional central airway inflammation.
== END 2018-09-25 13:45 | disposition home or self-care (01) ==
PROVIDERS: PCP Emergency Medicine; Visit Provider Nurse Practitioner Family
DX: R05 Cough (principal); R06.2 Wheezing; Z45.2 Encounter for adjustment and management of vascular access device
CPT/HCPCS: 71046; 96523

== ENCOUNTER 2018-10-03 11:50 | Outpatient (CLI) | payer BC, SELFPAY | END 2018-10-03 12:05 | disposition home or self-care (01) | LOC: INF 11:52 | PROVIDERS: Visit Provider Emergency Medicine | DX: Z45.2 Encounter for adjustment and management of vascular access device (principal); J18.9 Pneumonia, unspecified organism | CPT/HCPCS: G0463 ==

== ENCOUNTER 2018-10-06 10:17 | Outpatient (RCR) | payer BC, SELFPAY ==
--- NOTE | 2018-10-06 11:46 | HMH.OTOPEV ---
OT Inpatient Evaluation Rehab OT Outpatient Eval Start: 10/06/18 11:36 Freq: Status: Active Protocol: Document 10/06/18 11:36 KRISH (Rec: 10/06/18 11:46 KRISH [id number]) Electronically Signed By Nancy Paul OT 10/06/18 11:36 Outpatient Therapy Subjective History Subjective History Pt is a 58 year old female who reports to therapy for initial evaluation to left shoulder. Pt reports she was in the hospital at the beginning of August, for acute bronchitis when her shoulder began hurting her. Within the past month, her symptoms at the shoulder have become worse. 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 Pt does demonstrate with significant decline in AROM and strength at left shoulder. Pt will continue to be seen twice a week in order to address these deficits. Chief Complaint Pain Weakness Symptom Type Ache Throb Sharp Dull Stabbing Symptoms Relieved By Nothing Symptoms Aggravated By Physical Activity Lifting Prior Functional Limitations None Current Functional Limitations Reaching Lifting Housework Dressing Sleeping Recreation Activity Symptom Description Constant but Variable Level of pain today (0-10) 8 Pain scale - at its best (0-10) 10 Pain scale - at its worst (0-10) 4 Shoulder/Elbow Eval Shoulder Objective Measurements Shoulder ROM Left Shoulder ROM Limitations Pain Shoulder Abduction Active Range of 94 degrees Motion (degrees) Shoulder Flexion Active Range of Motion 116 degrees (degrees) Query Text: Shoulder External Rotation Active Range 40 degrees of Motion (degrees) Shoulder Internal Rotation Active Range 70 degrees of Motion (degrees) pain with active ROM shoulder exam left standard
== END 2018-10-06 10:20 | disposition home or self-care (01) ==
LOC: OT 10:17
PROVIDERS: Visit Provider Nurse Practitioner Family
DX: M54.2 Cervicalgia (principal); M25.512 Pain in left shoulder
CPT/HCPCS: 97165

== ENCOUNTER → 2018-10-06 14:03 | Outpatient (CLI) | payer BC, SELFPAY ==
--- NOTE | 2018-10-06 14:05 | US_ITS ---
US extremity RT limited CLINICAL INDICATION: ITS.REASON: pain ORDERING PHYSICIAN: Sadie Mathis PATIENT AGE: 58 years Comparison: None FINDINGS: Ultrasound performed in the area of the patient's reported pain in the upper thigh laterally showing no sonographic abnormalities. IMPRESSION: Negative targeted ultrasound of right thigh
--- NOTE | 2018-10-06 14:50 | XR_ITS ---
EXAM: XR lumbar spine min 4V HISTORY: ITS.REASON: LOW BACK PAIN ORDERING PHYSICIAN: Sadie Mathis PATIENT AGE: 58 years COMPARISON: None FINDINGS: There is minimal lumbar curvature convex left. No fracture or dislocation evident. Mild degenerative disc disease L3-L4 and L4-L5. Mild facet arthritic changes at L4-5 and L5-S1. No lytic or blastic change. IMPRESSION: Mild lumbar spondylosis with degenerative disc disease and facet arthritic changes at L4-5 and L5-S1 overall not significantly changed
== END ==
PROVIDERS: PCP Nurse Practitioner Family; Visit Provider Nurse Practitioner Family
DX: M54.5 Low back pain (principal); M25.551 Pain in right hip
CPT/HCPCS: 72110; 76882

== ENCOUNTER → 2018-10-14 10:14 | Outpatient (CLI) | payer BC, SELFPAY ==
--- NOTE | 2018-10-14 10:18 | XR_ITS ---
XR chest complete 4V HISTORY: ITS.REASON: cough ORDERING PHYSICIAN: Sadie Mathis PATIENT AGE: 58 years COMPARISON: 09/25/2018 FINDINGS: The cardiomediastinal silhouette and pulmonary vascularity are within normal limits. The lungs are clear without infiltrates, suspicious nodules, or pleural effusions. No acute bony abnormalities. IMPRESSION: Negative chest, no acute finding
== END ==
PROVIDERS: PCP Emergency Medicine; Visit Provider Nurse Practitioner Family
DX: R05 Cough (principal); R06.2 Wheezing
CPT/HCPCS: 71048

== ENCOUNTER → 2018-10-17 15:26 | Outpatient (CLI) | payer BC, SELFPAY ==
[2018-10-17 15:45] LABS: ABG Base Excess -1.2 mmol/L (-2.4-2.3); ABG HCO3 23.7 mmhg (22.0-26.0); ABG Oxygen Saturation 95 % (90-100); ABG PH 7.39 mmol/L (7.35-7.45)
[2018-10-17 15:47] LABS: Allen's Test ACCEPTABLE; Oxygen ROOM AIR %; Source L RADIAL
== END ==
PROVIDERS: PCP Nurse Practitioner Family; Visit Provider Nurse Practitioner Family
DX: R06.02 Shortness of breath (principal); R06.2 Wheezing
CPT/HCPCS: 82803

== ENCOUNTER → 2018-10-19 14:39 | Outpatient (CLI) | payer BC, SELFPAY | PROVIDERS: Visit Provider Nurse Practitioner Family | DX: R05 Cough (principal); R06.02 Shortness of breath; R06.2 Wheezing | CPT/HCPCS: 87070; 87205 ==

== ENCOUNTER → 2018-10-24 08:11 | Outpatient (CLI) | payer BC, SELFPAY ==
--- NOTE | 2018-10-24 08:12 | CT_ITS ---
CT chest wo con HISTORY: Pneumonia, chronic cough, follow-up pulmonary nodules ITS.REASON: cough ORDERING PHYSICIAN: Sadie Mathis PATIENT AGE: 58 years COMPARISON: 10/16/2017 Technique: Axial images obtained with sagittal and coronal reformats. All CT scans at the facility use one or more dose reduction, viz: automated exposure control, ma/kV adjustment per patient size (including targeted exams where dose is matched to indication, i.e. head), or iterative reconstruction technique. FINDINGS: There are mildly prominent mediastinal lymph nodes which measure up to 1.9 x 2.5 cm previously 1.6 x 2 cm. Scattered small nodes are present in the axilla well. Normal heart size. There is a 5 and 3 mm noncalcified nodule in the right upper lobe unchanged. There is a somewhat diffuse groundglass mosaic appearance of the lungs. No effusions. No suspicious mass. No central obstructing lesion Upper abdominal images show borderline splenomegaly at 13 cm and postcholecystectomy change. No acute bony anomalies. Prominent posterior osteophyte is present at C6-C7 causing bony canal stenosis. This is slightly eccentric toward the right IMPRESSION: 1. Mild mediastinal adenopathy slightly more prominent on today's exam 2. Diffuse groundglass mosaic appearance of the lungs. This is nonspecific could be inflammatory or infectious or could be related to resolving pulmonary edema. 3. No change in the 5 and 3 mm right upper lobe nodule 4. Bony canal stenosis at C6-C7 due to posterior osteophyte
--- NOTE | 2018-10-24 09:30 | MM_ITS ---
MM Dig screening mamm BI w/CAD ORDERING PHYSICIAN : Sadie Mathis PATIENT AGE: 58 years GENDER: Female COMPARISON: September 2017, August 2016 digital bilateral mammogram INDICATION: .: Routine Screening Mammogram. Takes estradiol. No new complaints This patient has had a previous stereotactic biopsy left breast Family history. Maternal grandmother with breast cancer. TECHNIQUE: Standard CC and MLO images were obtained. R2 CAD reviewed. Additional right CC and left MLO nipple profile view included FINDINGS: Low-density breast with generalized fatty replacement. No dominant mass nor suspicious calcifications either breast. CAD computer review highlights no areas of concern. There is been no significant change since previous study from September 2017, August 2016 RIGHT BREAST:Stable. No new areas of concern Follow-up in one year recommended bilateral LEFT BREAST: No new areas of concern. Metallic marker from the previous stereotactic biopsy noted at central left breast. IMPRESSION: --------- Stable bilateral mammogram with no areas of concern . Bilateral follow-up in one year recommended. BI-RADS Category: 1 Negative RECOMMENDED FOLLOW-UP: 1YR 1 YEAR FOLLOW-UP (A letter has been sent to the patient regarding results of the study.)
== END ==
PROVIDERS: PCP Nurse Practitioner Family; Visit Provider Nurse Practitioner Family
DX: Z12.31 Encounter for screening mammogram for malignant neoplasm of breast (principal); R05 Cough; R06.2 Wheezing
CPT/HCPCS: 71250; 77067

== ENCOUNTER 2018-11-09 14:07 | Inpatient (IN) ==
--- NOTE | 2018-11-09 14:34 | Emergency Department Note ---
ED Disposition Clinical Impression: COPD exacerbation, Congestive heart failure, Pneumonia, Hypokalemia, Hypoxia Disposition: Still a Patient Condition on Discharge: Fair - Critical Care Critical Care Time: No Attestation: On 11/09/18, the high probability of a clinically significant, sudden or life threatening deterioration of the following system(s) required my full and direct attention, intervention and personal management. The time I documented below is in addition to time spent performing reported procedures but includes the following listed in this critical care notation. Medical Decision Making - Adolph Inquiry Pt receiving controlled substance: No Adolph was queried for this patient: No Vital Signs: 11/09/18 14:23 11/09/18 14:55 11/09/18 15:07 Temperature 98.4 F Temperature Source Oral Pulse Rate 80 Pulse Rate [Left Radial] 89 84 Respiratory Rate 24 Blood Pressure [Right Arm] 152/75 H Blood Pressure Mean [Right Arm] 100 Blood Pressure Source [Right Arm] Automatic Cuff Blood Pressure Position [Right Arm] Sitting 02 Sat by Pulse Oximetry 86 L 93 L Oxygen Delivery Method Room Air - Lab Data Lab Results 11/09/18 14:31: Specimen Source L. radial, O2 % 3, ABG pH 7.33 L, ABG pCO2 35.6, ABG pO2 66.8 L, ABG HCO3 18.5 L, ABG Total CO2 19.6 L, ABG O2 Saturation 93, ABG Base Excess -7.4 L, Paresh Test Acceptable 11/09/18 15:05: WBC 11.4 H, RBC 3.16 L, Hgb 9.8 L, Hct 30.2 L, MCV 95.4, MCH 30.8, MCHC 32.3, RDW 15.0, Plt Count 361, MPV 7.0 L, Neut % (Auto) 86.6 H, Lymph % (Auto) 8.6 L, [place] % (Auto) 3.8, Eos % (Auto) 0.8, Baso % (Auto) 0.2, Neut # (Auto) 9.9 H, Lymph # (Auto) 1.0, [place] # (Auto) 0.4, Eos # (Auto) 0.1, Baso # (Auto) 0.0 11/09/18 15:05: Sodium 141, Potassium 2.8 L*, Chloride 105, Carbon Dioxide 22, Anion Gap 16.8 H, BUN 8, Creatinine 0.87, Estimated Creat Clear 61, Estimated GFR 67, Est GFR ( Amer) 81, Glucose 99, Calcium 8.9, Total Bilirubin 0.4, AST 31, ALT 19, Alkaline Phosphatase 78, Troponin I < 0.02, Total Protein 6.8, Albumin 2.9 L, Globulin 3.9 H, Albumin/Globulin Ratio 0.7 L Result diagrams: 11/09/18 15:05 11/09/18 15:05 Orders (Tests/Meds): ED MEDICATIONS Discontinued Medications Generic Name Dose Route Start Last Admin Trade Name Freq PRN Reason Stop Dose Admin Albuterol/Ipratropium 3 ml 11/09/18 14:31 11/09/18 14:42 Duoneb 3ml Neb IH 11/09/18 14:32 3 ml ONCE ONE Administration Methylprednisolone Sodium Succinate 125 mg 11/09/18 14:31 11/09/18 15:11 Solu-Medrol 125mg/2ml Vial IV 11/09/18 14:32 125 mg ONCE ONE Administration ORDERS Category Date Time Status XR chest 2V Stat Exams 11/09/18 14:30 Taken B-Type Natriuretic Peptide Stat Lab 11/09/18 15:05 Received Complete Blood Count Auto Diff Stat Lab 11/09/18 15:05 Results Lactic Acid Stat Lab 11/09/18 15:05 Received Blood Culture Stat Micro 11/09/18 15:05 Received ABG [Arterial Blood Gas] Stat RT 11/09/18 14:31 Ordered - Radiology Data #1 Image(s): Chest Image Reviewed: Yes I reviewed the patient's radiology image Preliminary Findings: Abnormal Bibasilar infiltrates worse on the right than left. Medical Decision Narrative: I discussed the patient clinical presentation and need for oxygen to Dr. Agustin who agreed to admit the patient for IV antibiotics potassium replacement and oxygen supplement. Resp/SOB HPI - General Chief Complaint: Shortness of Breath/Dyspnea Stated Complaint: Eye redness Time Seen by Provider: 11/09/18 14:30 Mode of Arrival: Ambulatory Limitations: No Limitations Description of Symptoms (Recalled from ER Triage Doc. by RN): Pt states that she has been SOA since with some yellowish cough. 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 c/o chest pain in uppper left chest - History of Present Illness 58 years old white female with chronic lung disease recurrent pneumonias that required vancomycin on outpatient setting. The patient has been experiencing progressive shortness of breath, wheezing, productive cough, and lower extremity edema for the past week. She denies having fever chills or body aches. She denies having chest pain palpitations or hemoptysis. Her initial oxygen saturation was 86 that improved with O2 2 L to 92%. She has no home O2. MD Complaint: shortness of breath, cough Onset (ago): day(s) Severity: moderate Consistency/Duration: constant Relieving factors: oxygen, rest, bronchodilators Exacerbating factors: exertion Known history of: COPD, congestive heart failure Associated symptoms: denies other symptoms Treatment prior to arrival: none - Related Data Home Medications Medication Instructions Recorded Confirmed dicyclomine 10 mg capsule 10 mg PO NEEDED PRN 10/16/17 11/09/18 Metoprolol Succinate 25 mg PO DAILY 01/11/18 11/09/18 Potassium Chloride [Micro-K 10mEq 10 meq PO DAILY 01/11/18 11/09/18 cap] Spironolactone [Aldactone 50mg Tab] 50 mg PO DAILY 01/11/18 11/09/18 Aspirin [Aspirin 81mg EC Tab] 81 mg PO DAILY 01/31/18 11/09/18 Hyoscyamine Sulfate 0.125 mg SL DAILYP PRN 01/31/18 11/09/18 budesonide-formoterol HFA 80 2 puff INHALATION BID 08/25/18 11/09/18 mcg-4.5 mcg/actuation aerosol inhaler montelukast 10 mg tablet 10 mg PO HS 30 Days #30 tab 08/25/18 11/09/18 Loratadine [Allergy Relief] 10 mg PO DAILY 11/09/18 11/09/18 Tizanidine HCl 4 mg PO BID 11/09/18 11/09/18 Previous Rx's Medication Instructions Recorded gabapentin 800 mg tablet 800 mg PO QID #120 tab 08/25/18 albuterol sulfate HFA 90 2 inh INHALATION Q4-6H PRN #1 inh 08/29/18 mcg/actuation aerosol inhaler levothyroxine 75 mcg tablet 75 mcg PO DAILY #30 tab 09/12/18 furosemide 40 mg tablet 40 mg PO DAILY PRN #90 tab 09/25/18 losartan 50 mg tablet 50 mg PO DAILY #90 tab 09/25/18 estradiol 1 mg tablet 1 mg PO DAILY #30 tab 10/01/18 ibuprofen 600 mg tablet 600 mg PO QID PRN #120 tab 10/03/18 omeprazole 40 mg capsule,delayed 40 mg PO HS #90 cap 10/07/18 release trazodone 100 mg tablet 200 mg PO HSP PRN #180 tab 10/07/18 benzonatate 100 mg capsule 100 mg PO TID PRN #10 cap 10/20/18 fluticasone 50 mcg/actuation nasal 2 spray INTRANASAL DAILY #16 g 10/23/18 spray,suspension Allergies Allergy/AdvReac Type Severity Reaction Status Date / Time Cephalosporins Allergy RASH Verified 10/23/18 13:05 erythromycin base Allergy Hives Verified 10/23/18 13:05 minocycline Allergy RASH Verified 10/23/18 13:05 penicillin G Allergy Hives Verified 10/23/18 13:05 Sulfa (Sulfonamide Allergy RASH Verified 10/23/18 13:05 Antibiotics) [facility] History - Hepatitis A Screen Drug use history?: No High risk sexual behaviors?: No History of sexually transmitted infection?: No Currently employed?: No Childcare worker?: No Do you have indoor plumbing?: No Do you have electricity?: Yes Attestation statement:: This patient has been screened for Hepatitis A risk factors. I have reviewed the patient's past medical history: Yes Medical History: Reports:: Anxiety, Congestive Heart Failure, Coronary Artery Disease, Depression, Gastroesophageal Reflux Disease(GERD), Hypertension, MRSA Denies:: Cancer, Diabetes Mellitus Type 1, Diabetes Mellitus Type 2 Other Medical History: Reports: Anemia, Arthritis, Fibromyalgia, Hypothyroidism, Thyroid Disease, Other Comment: SLEEP APNEA Laterality Cases: Bilateral: Tonsillectomy Other Surgeries: Yes: Angioplasty, Cardiac Catheterization, Cholecystectomy, Colonoscopy, Dilation and Curettage, Hysterectomy-Total, Other Amputation: No Fractures: No Comment: GALLBLADDER,2 CYSTS REMOVED FROM RIGHT SHOULDER - Social History Smoking Status: Former smoker Tobacco Type: cigarettes # Packs/Day (cigarettes): 1 #Yrs smoked (if former smoker): 20 Alcohol Intake: current Alcohol Intake Frequency:: holidays/special occasions only Substance Use Type: denies use Occupational Status: employed Housing: house Household Members: family - Psychiatric History Expresses thoughts of harming self/others: None Suicide Plan Description: No Plan Pschychiatric History:: Reports:: Anxiety, Depression Family Hx:: Anemia, Bleeding Disorder, Cancer, Coronary Artery Disease, H yperlipidemia, Hypertension, Stroke, Thyroid Disorder ROS Obtained: Yes All systems reviewed & no additional complaints Physical Exam - General General appearance: alert, in no apparent distress - Head Head exam: atraumatic, normocephalic, normal inspection - Eye Eye exam: Present: normal appearance, PERRL, EOMI. Absent: scleral icterus, nystagmus - ENT ENT exam: Present: normal exam, normal oropharynx, mucous membranes moist, TM's normal bilaterally, normal external ear exam - Neck Neck exam: Present: normal inspection, full ROM, trachea midline. Absent: tenderness, meningismus, lymphadenopathy - Chest Chest inspection: Present: normal inspection, symmetric chest wall rise. Absent: tenderness - Respiratory Respiratory exam: Present: normal lung sounds bilaterally, wheezes. Absent: respiratory distress - Cardiovascular Cardiovascular exam: Present: regular rate, normal rhythm, normal heart sounds. Absent: JVD - Abdominal Exam Abdominal exam: Present: soft, normal bowel sounds. Absent: distention, tenderness, guarding, rebound, rigidity - Extremities Exam Extremities exam: Present: normal inspection, full ROM, normal capillary refill, pedal edema, other (1+ pedal edema on the right 2+ pedal edema on the left. ). Absent: calf tenderness - Back Exam Back exam: Present: normal inspection. Absent: tenderness - Neurological Exam Neurological exam: Present: alert, oriented X3, CN II-XII intact - Psychiatric Psychiatric exam: Present: normal affect, normal mood - Skin Skin exam: Present: warm, dry, intact, normal color - Lymphatic Lymphatic Findings: no adenopathy
[2018-11-09 14:50] LABS: ABG Base Excess -7.4 mmol/L (-2.4-2.3); ABG HCO3 18.5 mmhg (22.0-26.0); ABG Oxygen Saturation 93 % (90-100); ABG PCO2 35.6 mmhg (35.0-45.0); ABG PH 7.33 mmol/L (7.35-7.45); ABG PO2 66.8 mmhg (80-100); ABG TCO2 19.6 mmhg (23-27)
[2018-11-09 14:51] LABS: Allen's Test ACCEPTABLE; Oxygen 3 %
[2018-11-09 15:27] LABS: Basophils % 0.2 % (0.1-2.0); Eosinophils # 0.1 K/mm3 (0.0-0.4); Eosinophils % 0.8 % (0.1-12.0); Hematocrit 30.2 % (37.0-47.0); Hemoglobin 9.8 g/dL (12.2-16.2); Lymphocytes % 8.6 % (10-50); Mean Corpuscular HGB Conc 32.3 g/dL (31.8-35.4); Mean Corpuscular Hemoglobin 30.8 pg (27.0-31.2); Mean Corpuscular Volume 95.4 fl (81-99); Monocytes # 0.4 K/mm3 (0.1-1.0); Monocytes % 3.8 % (1.7-9.3); Neutrophils # 9.9 K/mm3 (1.8-7.8); Neutrophils % 86.6 % (37.0-80.0); Platelet Count 361 K/mm3 (142-424); Red Blood Count 3.16 M/mm3 (4.20-5.40); White Blood Count 11.4 K/mm3 (4.8-10.8)
[2018-11-09 15:40] LABS: Alanine Aminotransferase 19 U/L (12-78); Albumin Level 2.9 gm/dL (3.4-5.0); Albumin/Globulin Ratio 0.7 (1.1-1.8); Alkaline Phosphatase 78 U/L (46-116); Aspartate Amino Transferase 31 U/L (15-37); Bilirubin,Total 0.4 mg/dL (0.2-1.0); Blood Urea Nitrogen 8 mg/dL (7-18); Calcium 8.9 mg/dL (8.5-10.1); Carbon Dioxide 22 mmol/L (21.0-32.0); Chloride 105 mmol/L (98-107); Globulin 3.9 gm/dl (1.3-3.2); Glucose 99 mg/dL (74-106); Sodium 141 mmol/L (136-145); Total Protein,Serum 6.8 gm/dL (6.4-8.2)
[2018-11-09 15:41] LABS: Anion Gap 16.8 mEq/L (5-15); Potassium 2.8 mmoL/L (3.5-5.1)
[2018-11-09 15:43] LABS: Lymphocytes % 6 % (10-50); Monocytes % 3 % (2-9); Neutrophils % 90 % (42-76); RBC Morphology Normal; Total Cells Counted 100
[2018-11-10 07:42] LABS: Eosinophils # 0.1 K/mm3 (0.0-0.4); Eosinophils % 0.9 % (0.1-12.0); Hematocrit 30.3 % (37.0-47.0); Hemoglobin 9.7 g/dL (12.2-16.2); Lymphocytes # 0.8 K/mm3 (0.7-4.5); Lymphocytes % 11.4 % (10-50); Mean Corpuscular HGB Conc 32.1 g/dL (31.8-35.4); Mean Corpuscular Hemoglobin 31.1 pg (27.0-31.2); Mean Corpuscular Volume 96.8 fl (81-99); Mean Platelet Volume 7.3 fl (7.4-10.4); Monocytes # 0.2 K/mm3 (0.1-1.0); Monocytes % 2.6 % (1.7-9.3); Neutrophils # 6.2 K/mm3 (1.8-7.8); Neutrophils % 85.1 % (37.0-80.0); Platelet Count 368 K/mm3 (142-424); Red Blood Count 3.13 M/mm3 (4.20-5.40); Red Cell Distribution Width 14.8 % (11.5-17.5); White Blood Count 7.3 K/mm3 (4.8-10.8)
--- NOTE | 2018-11-10 07:42 | Pharmacy Consult Notes ---
[facility] Pharmacy VTE Monitoring - Patient Demographics Admission date: 11/09/18 Report Date: 11/10/18 Time: 07:42 Allergies/Adverse Reactions: Patient Allergies Cephalosporins Allergy (Verified 10/23/18 13:05) RASH erythromycin base Allergy (Verified 10/23/18 13:05) Hives minocycline Allergy (Verified 10/23/18 13:05) RASH penicillin G Allergy (Verified 10/23/18 13:05) Hives Sulfa (Sulfonamide Antibiotics) Allergy (Verified 10/23/18 13:05) RASH Height: 1.63 m Weight: 109.826 kg Patient Problems: Current Active Problems COPD exacerbation (Acute) Pneumonia (Acute) CHF (congestive heart failure) (Acute) Hypoxia (Acute) Hypokalemia (Acute) - VTE Risk Labs: VTE Related Lab Results Hgb 9.8 g/dL (12.2-16.2) L 11/09/18 15:05 Hct 30.2 % (37.0-47.0) L 11/09/18 15:05 Plt Count 361 K/mm3 (142-424) 11/09/18 15:05 BUN 8 mg/dL (7-18) 11/09/18 15:05 Creatinine 0.87 mg/dL (0.55-1.02) 11/09/18 15:05 Estimated Creat Clear 61 mL/min (50-200) 11/09/18 15:05 VTE Score: 7 VTE Risk Level: Moderate Risk Clinical Trial Participant: No - Prophylaxis VTE Prophylaxis Ordered?: Yes Types of VTE Prophylaxis: TEDS Knee High
[2018-11-10 07:47] LABS: Anion Gap 13.5 mEq/L (5-15); Calcium 9.6 mg/dL (8.5-10.1); Potassium 3.5 mmoL/L (3.5-5.1)
[2018-11-10 08:32] LABS: Lymphocytes % 6 % (10-50); Monocytes % 4 % (2-9); Neutrophils % 89 % (42-76); Nucleated Red Blood Cells 1; RBC Morphology Normal; Total Cells Counted 100
--- NOTE | 2018-11-10 11:56 | Pharmacy Consult Notes ---
- Pharmacy Consult Date: 11/10/18 Time: 11:55 Referring provider: DR. PETERSON Reason for Consult:: VANCOMYCIN DOSING Allergies and ADEs:: Allergies Allergy/AdvReac Type Severity Reaction Status Date / Time Cephalosporins Allergy RASH Verified 10/23/18 13:05 erythromycin base Allergy Hives Verified 10/23/18 13:05 minocycline Allergy RASH Verified 10/23/18 13:05 penicillin G Allergy Hives Verified 10/23/18 13:05 Sulfa (Sulfonamide Allergy RASH Verified 10/23/18 13:05 Antibiotics) Home Medications:: Home Medications Medication Instructions Recorded Confirmed Type dicyclomine 10 mg capsule 10 mg PO NEEDED PRN 10/16/17 11/09/18 History Metoprolol Succinate 25 mg PO DAILY 01/11/18 11/09/18 History Potassium Chloride [Micro-K 10mEq 10 meq PO DAILY 01/11/18 11/09/18 History cap] Spironolactone [Aldactone 50mg Tab] 50 mg PO DAILY 01/11/18 11/09/18 History Aspirin [Aspirin 81mg EC Tab] 81 mg PO DAILY 01/31/18 11/09/18 History Hyoscyamine Sulfate 0.125 mg SL DAILYP PRN 01/31/18 11/09/18 History budesonide-formoterol HFA 80 2 puff INHALATION BID 08/25/18 11/09/18 History mcg-4.5 mcg/actuation aerosol inhaler gabapentin 800 mg tablet 800 mg PO QID #120 tab 08/25/18 11/09/18 Rx montelukast 10 mg tablet 10 mg PO HS 30 Days #30 tab 08/25/18 11/09/18 History albuterol sulfate HFA 90 2 inh INHALATION Q4-6H PRN #1 inh 08/29/18 11/09/18 Rx mcg/actuation aerosol inhaler levothyroxine 75 mcg tablet 75 mcg PO DAILY #30 tab 09/12/18 11/09/18 Rx furosemide 40 mg tablet 40 mg PO DAILY PRN #90 tab 09/25/18 11/09/18 Rx losartan 50 mg tablet 50 mg PO DAILY #90 tab 09/25/18 11/09/18 Rx estradiol 1 mg tablet 1 mg PO DAILY #30 tab 10/01/18 11/09/18 Rx ibuprofen 600 mg tablet 600 mg PO QID PRN #120 tab 10/03/18 11/09/18 Rx omeprazole 40 mg capsule,delayed 40 mg PO HS #90 cap 10/07/18 11/09/18 Rx release trazodone 100 mg tablet 200 mg PO HSP PRN #180 tab 10/07/18 11/09/18 Rx benzonatate 100 mg capsule 100 mg PO TID PRN #10 cap 10/20/18 11/09/18 Rx fluticasone 50 mcg/actuation nasal 2 spray INTRANASAL DAILY #16 g 10/23/18 11/09/18 Rx spray,suspension Loratadine [Allergy Relief] 10 mg PO DAILY 11/09/18 11/09/18 History Tizanidine HCl 4 mg PO BID 11/09/18 11/09/18 History Height: 1.63 m Weight: 109.826 kg Laboratory Results:: Laboratory Results - last 24 hr 11/09/18 14:31: Specimen Source L. radial, O2 % 3, ABG pH 7.33 L, ABG pCO2 35.6, ABG pO2 66.8 L, ABG HCO3 18.5 L, ABG Total CO2 19.6 L, ABG O2 Saturation 93, ABG Base Excess -7.4 L, Paresh Test Acceptable 11/09/18 15:05: WBC 11.4 H, RBC 3.16 L, Hgb 9.8 L, Hct 30.2 L, MCV 95.4, MCH 30.8, MCHC 32.3, RDW 15.0, Plt Count 361, MPV 7.0 L, Neut % (Auto) 86.6 H, Lymph % (Auto) 8.6 L, [place] % (Auto) 3.8, Eos % (Auto) 0.8, Baso % (Auto) 0.2, Neut # (Auto) 9.9 H, Lymph # (Auto) 1.0, [place] # (Auto) 0.4, Eos # (Auto) 0.1, Baso # (Auto) 0.0, Total Counted 100, Neutrophils % (Manual) 90 H, Lymphocytes % (Manual) 6 L, Atypical Lymphs % 1.0, Monocytes % (Manual) 3, Platelet Estimate Normal, RBC Morphology Normal 11/09/18 15:05: Sodium 141, Potassium 2.8 L*, Chloride 105, Carbon Dioxide 22, Anion Gap 16.8 H, BUN 8, Creatinine 0.87, Estimated Creat Clear 61, Estimated GFR 67, Est GFR ( Amer) 81, Glucose 99, Calcium 8.9, Total Bilirubin 0.4, AST 31, ALT 19, Alkaline Phosphatase 78, Troponin I < 0.02, Total Protein 6.8, Albumin 2.9 L, Globulin 3.9 H, Albumin/Globulin Ratio 0.7 L 11/09/18 15:05: Lactate 2.0 11/09/18 15:05: B-Natriuretic Peptide 455 H 11/09/18 20:36: POC Glucose 194 H 11/10/18 07:07: WBC 7.3 D, RBC 3.13 L, Hgb 9.7 L, Hct 30.3 L, MCV 96.8, MCH 31.1, MCHC 32.1, RDW 14.8, Plt Count 368, MPV 7.3 L, Neut % (Auto) 85.1 H, Lymph % (Auto) 11.4, [place] % (Auto) 2.6, Eos % (Auto) 0.9, Baso % (Auto) 0.0 L, Neut # (Auto) 6.2, Lymph # (Auto) 0.8, [place] # (Auto) 0.2, Eos # (Auto) 0.1, Baso # (Auto) 0.0, Total Counted 100, Neutrophils % (Manual) 89 H, Lymphocytes % (Manual) 6 L, Atypical Lymphs % 1.0, Monocytes % (Manual) 4, Nucleated RBCs 1, Platelet Estimate Normal, RBC Morphology Normal 11/10/18 07:07: Sodium 142, Potassium 3.5 D, Chloride 107, Carbon Dioxide 25, Anion Gap 13.5, BUN 7, Creatinine 0.86, Estimated Creat Clear 62, Estimated GFR 68, Est GFR ( Amer) 82, Glucose 137 H D, Calcium 9.6, Magnesium 2.3 H 11/10/18 07:07: D-Dimer 341 Medical History: Reports:: Anxiety, Congestive Heart Failure, Coronary Artery Disease, Depression, Gastroesophageal Reflux Disease(GERD), Hypertension, MRSA Denies:: Cancer, Diabetes Mellitus Type 1, Diabetes Mellitus Type 2 Assessment and Plan - Assessment and plan all Dx Assessment and Plan for all problems:: BASED ON PATIENT FACTORS, RECOMMEND VANCOMYCIN 2 GM IV Q24H. WILL OBTAIN VANCOMYCIN TROUGH LEVEL PRIOR TO 4TH DOSE. PHARMACY WILL FOLLOW DAILY AND ADJUST APPROPRIATE.
--- NOTE | 2018-11-11 08:49 | Progress Note ---
Internal Medicine - PN: Subj *Date: 11/11/18 *Time: 08:48 Exam Vital signs and Labs for Last 24 Hours: Temp Pulse Resp BP Pulse Ox 97.9 F 67 16 107/58 L 90 L 11/11/18 08:00 11/11/18 08:00 11/11/18 08:00 11/11/18 08:00 11/11/18 08:00 Laboratory Results - last 24 hr 11/10/18 07:07: D-Dimer 341 I & O for Last 24 hours: Intake & Output 11/08/18 11/09/18 11/10/18 11/11/18 11:59 11:59 11:59 11:59 Intake Total 1070 / 1070 1260 / 1260 Output Total 200 / 200 1200 / 1200 Balance 870 / 870 60 / 60 Weight 242 lb 2 oz 246 lb Microbiology Reports for the Last 24 Hours: Microbiology 11/10/18 17:10 Sputum - Expectorated Sputum Gram Stain - Final - Constitutional no acute distress - *Routine HEENT Exam Head: Present: normocephalic Eye: Present: PERRL, conjunctivae pink ENT: Present: mucous membranes moist - *Routine Neck Exam Present: supple. Absent: lymphadenopathy - *Routine Respiratory Exam Present: CTA bilaterally - *Routine Cardiovascular Exam Present: RRR - *Routine Abdominal Exam Present: soft, normoactive bowel sounds. Absent: tenderness - *Routine Extremities Exam Absent: cyanosis, clubbing, edema - *Routine Skin Exam Present: warm. Absent: rash - *Routine Neurological Exam Present: alert, oriented X3 - Routine Psychiatric Exam Present: normal affect Assessment and Plan - Assessment and plan all Dx Assessment and Plan for all problems:: Rounded with Dr. Chairez all orders per Mihaela
--- NOTE | 2018-11-11 09:14 | History & Physical Report ---
*Admission Date: 11/09/18 *Chief complaint: sob *History of present illness: this wf presented to the ed with sob - pt was seen in the ed years old white female with chronic lung disease recurrent pneumonias that required vancomycin on outpatient setting. The patient has been experiencing progressive shortness of breath, wheezing, productive cough, and lower extremity edema for the past week. She denies having fever chills or body aches. She denies having chest pain palpitations or hemoptysis. Her initial oxygen saturation was 86 that improved with O2 2 L to 92%. She has no home O [facility] History I have reviewed the patient's past medical history: Yes Medical History: Reports:: Anxiety, Congestive Heart Failure, Coronary Artery Disease, Depression, Gastroesophageal Reflux Disease(GERD), Hypertension, MRSA Denies:: Cancer, Diabetes Mellitus Type 1, Diabetes Mellitus Type 2 Have you ever received a pneumonia vaccine?: Yes Have you received a flu vaccine this season?: No Other Medical History: Reports: Anemia, Arthritis, Fibromyalgia, Hypothyroidism, Thyroid Disease, Other Laterality Cases: Bilateral: Tonsillectomy Other Surgeries: Yes: Angioplasty, Cardiac Catheterization, Cholecystectomy, Colonoscopy, Dilation and Curettage, Hysterectomy-Total, Other Amputation: No Fractures: No - *Social History Educational Level: Completed College Smoking Status: Former smoker Tobacco Type: cigarettes # Packs/Day (cigarettes): 1 #Yrs smoked (if former smoker): 20 Smoking End Date: 2018 Alcohol Intake: current Alcohol Intake Frequency:: holidays/special occasions only Substance Use Type: denies use Occupational Status: employed Housing: house Household Members: family Travel in the last 8 weeks: None - Psychiatric History Expresses thoughts of harming self/others: None Suicide Plan Description: No Plan Pschychiatric History:: Reports:: Anxiety, Depression Family Hx:: Anemia, Bleeding Disorder, Cancer, Coronary Artery Disease, Hyperlipidemia, Hypertension, Stroke, Thyroid Disorder Review of Systems - Review of Systems Review of systems:: pertinent systems reviewed and negative unless documented below - Constitutional Reports chills, Denies fever(s) - Eyes Reports discharge, Denies change in vision - ENT Denies sore throat - *Cardiovascular Denies chest pain - *Respiratory Reports cough, Reports shortness of breath, Denies coughing up blood - *Gastrointestinal Denies abdominal pain - *Genitourinary Denies blood in urine - *Musculoskeletal Denies joint pain - Integumentary/Breasts Denies rash - *Neurologic Denies seizure-like activity - Psychiatric Denies anxiety Meds Home Medications Medication Instructions Recorded Confirmed Type dicyclomine 10 mg capsule 10 mg PO QIDP PRN 10/16/17 11/10/18 History Metoprolol Succinate 25 mg PO DAILY 01/11/18 11/09/18 History Potassium Chloride [Micro-K 10mEq 10 meq PO DAILY 01/11/18 11/09/18 History cap] Spironolactone [Aldactone 50mg Tab] 50 mg PO DAILY 01/11/18 11/09/18 History Aspirin [Aspirin 81mg EC Tab] 81 mg PO DAILY 01/31/18 11/09/18 History Hyoscyamine Sulfate 0.125 mg SL DAILYP PRN 01/31/18 11/09/18 History budesonide-formoterol HFA 80 2 puff INHALATION BID 08/25/18 11/09/18 History mcg-4.5 mcg/actuation aerosol inhaler gabapentin 800 mg tablet 800 mg PO QID #120 tab 08/25/18 11/09/18 Rx montelukast 10 mg tablet 10 mg PO HS 30 Days #30 tab 08/25/18 11/09/18 History levothyroxine 75 mcg tablet 75 mcg PO DAILY #30 tab 09/12/18 11/09/18 Rx furosemide 40 mg tablet 40 mg PO DAILY PRN #90 tab 09/25/18 11/09/18 Rx losartan 50 mg tablet 50 mg PO DAILY #90 tab 09/25/18 11/09/18 Rx estradiol 1 mg tablet 1 mg PO DAILY #30 tab 10/01/18 11/09/18 Rx ibuprofen 600 mg tablet 600 mg PO QID PRN #120 tab 10/03/18 11/09/18 Rx omeprazole 40 mg capsule,delayed 40 mg PO HS #90 cap 10/07/18 11/09/18 Rx release trazodone 100 mg tablet 200 mg PO HSP PRN #180 tab 10/07/18 11/09/18 Rx benzonatate 100 mg capsule 100 mg PO TID PRN #10 cap 10/20/18 11/09/18 Rx fluticasone 50 mcg/actuation nasal 2 spray INTRANASAL DAILY #16 g 10/23/18 11/09/18 Rx spray,suspension Loratadine [Allergy Relief] 10 mg PO DAILY 11/09/18 11/09/18 History Tizanidine HCl [Tizanidine HCl 4 mg PO BID 11/09/18 11/09/18 History 2mg] Albuterol Sulfate [Proair Hfa 2 puffs IH Q4-6H PRN 11/10/18 11/10/18 History 90mcg/puff Inh] Allergies Allergy/AdvReac Type Severity Reaction Status Date / Time Cephalosporins Allergy RASH Verified 10/23/18 13:05 erythromycin base Allergy Hives Verified 10/23/18 13:05 minocycline Allergy RASH Verified 10/23/18 13:05 penicillin G Allergy Hives Verified 10/23/18 13:05 Sulfa (Sulfonamide Allergy RASH Verified 10/23/18 13:05 Antibiotics) Exam Vital signs and Labs for Last 24 Hours: Temp Pulse Resp BP Pulse Ox 97.9 F 67 16 107/58 L 90 L 11/11/18 08:00 11/11/18 08:00 11/11/18 08:00 11/11/18 08:00 11/11/18 08:00 I & O for Last 24 hours: Intake & Output 11/08/18 11/09/18 11/10/18 11/11/18 11:59 11:59 11:59 11:59 Intake Total 1070 / 1070 1260 / 1260 Output Total 200 / 200 1200 / 1200 Balance 870 / 870 60 / 60 Weight 242 lb 2 oz 246 lb Microbiology Reports for the Last 24 Hours: Microbiology 11/10/18 17:10 Sputum - Expectorated Sputum Gram Stain - Final - Constitutional no acute distress, obese - *Routine HEENT Exam Head: Present: normocephalic Eye: Present: EOMI, PERRL, conjunctivae pink (rt eye conjunctivitis ), periorbital tenderness. Absent: conjunctival icterus ENT: Present: mucous membranes dry - *Routine Neck Exam Present: supple. Absent: JVD - *Routine Respiratory Exam Present: rhonchi. Absent: respiratory distress - *Routine Cardiovascular Exam Present: RRR, murmur - *Routine Abdominal Exam Present: soft - *Routine Extremities Exam Present: edema. Absent: calf tenderness - *Routine Skin Exam Present: intact - *Routine Neurological Exam Present: alert, oriented X3, CN II-XII intact - Routine Psychiatric Exam Present: normal affect Assessment and Plan (1) Obesity Current visit: Yes Status: Acute Qualifiers: Obesity type: due to excess calories Obesity classification: adult class 3 (BMI >= 40) Serious obesity comorbidity presence: with serious comorbidity Body mass index: BMI 40.0-44.9 Qualified Code(s): E66.01 - Morbid (severe) obesity due to excess calories; Z68.41 - Body mass index (BMI) 40.0-44.9, adult Category: Medical Code(s): E66.9 - Obesity, unspecified (2) CAP (community acquired pneumonia) Current visit: No Status: Acute Qualifiers: Laterality: right Lung location: lower lobe of lung Qualified Code(s): J18.1 - Lobar pneumonia, unspecified organism Category: Medical Code(s): J18.9 - Pneumonia, unspecified organism (3) Conjunctivitis Current visit: Yes Status: Acute Qualifiers: Conjunctivitis type: acute Acute conjunctivitis type: bacterial Laterality: right Qualified Code(s): H10.31 - Unspecified acute conjunctivitis, right eye Category: Medical Code(s): H10.9 - Unspecified conjunctivitis (4) Hypokalemia Current visit: Yes Status: Acute Category: Medical Code(s): E87.6 - Hypokalemia (5) Anemia Current visit: Yes Status: Acute Qualifiers: Anemia type: unspecified type Qualified Code(s): D64.9 - Anemia, unspecified Category: Medical Code(s): D64.9 - Anemia, unspecified
[2018-11-12 09:33] LABS: Basophils % 0.2 % (0.1-2.0); Eosinophils # 0.1 K/mm3 (0.0-0.4); Eosinophils % 1.3 % (0.1-12.0); Hematocrit 30.1 % (37.0-47.0); Hemoglobin 9.5 g/dL (12.2-16.2); Lymphocytes % 20.7 % (10-50); Mean Corpuscular HGB Conc 31.5 g/dL (31.8-35.4); Mean Corpuscular Volume 98.5 fl (81-99); Mean Platelet Volume 6.9 fl (7.4-10.4); Monocytes # 0.3 K/mm3 (0.1-1.0); Monocytes % 6.9 % (1.7-9.3); Neutrophils # 3.3 K/mm3 (1.8-7.8); Neutrophils % 70.8 % (37.0-80.0); Platelet Count 342 K/mm3 (142-424); Red Blood Count 3.05 M/mm3 (4.20-5.40); Red Cell Distribution Width 14.8 % (11.5-17.5); White Blood Count 4.6 K/mm3 (4.8-10.8)
--- NOTE | 2018-11-12 13:29 | Discharge Summary ---
General - General Admission date:: 11/09/18 Discharge date: 11/12/18 HPI HPI: this wf presented to the ed with sob - pt was seen in the ed years old white female with chronic lung disease recurrent pneumonias that required vancomycin on outpatient setting. The patient has been experiencing progressive shortness of breath, wheezing, productive cough, and lower extremity edema for the past week. She denies having fever chills or body aches. She denies having chest pain palpitations or hemoptysis. Her initial oxygen saturation was 86 that improved with O2 2 L to 92%. She has no home O Hospital Course Hospital Course: pt has slowly improved on ivf and abx with steroids and resp treatments and was noted to be mycoplasma positive and had continued rt eye conjunctivitis with eye drops started and was discussed with dr leung and will be seen this week as op -pt d/c to complete treatment and be followed as op Objective Vital signs: Temp Pulse Resp BP Pulse Ox 98.6 F 51 L 18 130/56 L 94 L 11/12/18 11:41 11/12/18 11:41 11/12/18 11:41 11/12/18 11:41 11/12/18 11:41 no acute distress, obese - *Routine HEENT Exam Head: Present: normocephalic Eye: Present: EOMI, PERRL, normal accommodation (has rt eye conjuc with possible iritis and has corneal abrasion with fluro stain ) ENT: Present: mucous membranes dry - *Routine Neck Exam Absent: JVD - *Routine Respiratory Exam Present: rhonchi - *Routine Cardiovascular Exam Present: RRR, murmur - *Routine Abdominal Exam Present: soft - *Routine Extremities Exam Absent: calf tenderness - *Routine Skin Exam Present: intact - *Routine Neurological Exam Present: alert, oriented X3, CN II-XII intact - Routine Psychiatric Exam Present: normal affect Results Labs on day of discharge: Labs from last 24 hours 11/12/18 11/12/18 09:23 09:23 WBC 4.6 L D RBC 3.05 L Hgb 9.5 L Hct 30.1 L MCV 98.5 MCH 31.0 MCHC 31.5 L RDW 14.8 Plt Count 342 MPV 6.9 L Neut % (Auto) 70.8 Lymph % (Auto) 20.7 Tate % (Auto) 6.9 Eos % (Auto) 1.3 Baso % (Auto) 0.2 Neut # (Auto) 3.3 Lymph # (Auto) 1.0 Tate # (Auto) 0.3 Eos # (Auto) 0.1 Baso # (Auto) 0.0 Ferritin 83 Preliminary micro results at discharge 11/10/18 17:10 Sputum Culture - Preliminary Sputum - Expectorated Sputum 11/09/18 15:05 Blood Culture - Preliminary Blood NO GROWTH AFTER 48 HOURS 11/09/18 15:05 Blood Culture - Preliminary Blood NO GROWTH AFTER 48 HOURS DS: Diagnosis - Discharge Diagnosis (1) Obesity Status: Acute (2) CAP (community acquired pneumonia) Status: Acute (3) Conjunctivitis Status: Acute (4) Hypokalemia Status: Acute (5) Anemia Status: Acute (6) Hypothyroidism (acquired) Status: Acute Discharge Plan - Patient Discharge Instructions ACTIVITY: Continue current activity DIET: continue same diet Patient Instructions: DI for Heart Failure, DI for Pneumonia -- Adult, DI for Hypokalemia, DI for Hypoxia - Follow up Plan Disposition: Home, Self-Correction Medications: Home Medications Medication Instructions Recorded Confirmed Type dicyclomine 10 mg capsule 10 mg PO QIDP PRN 10/16/17 11/10/18 History Metoprolol Succinate 25 mg PO DAILY 01/11/18 11/09/18 History Potassium Chloride [Micro-K 10mEq 10 meq PO DAILY 01/11/18 11/09/18 History cap] Spironolactone [Aldactone 50mg Tab] 50 mg PO DAILY 01/11/18 11/09/18 History Aspirin [Aspirin 81mg EC Tab] 81 mg PO DAILY 01/31/18 11/09/18 History Hyoscyamine Sulfate 0.125 mg SL DAILYP PRN 01/31/18 11/09/18 History budesonide-formoterol HFA 80 2 puff INHALATION BID 08/25/18 11/09/18 History mcg-4.5 mcg/actuation aerosol inhaler gabapentin 800 mg tablet 800 mg PO QID #120 tab 08/25/18 11/09/18 Rx montelukast 10 mg tablet 10 mg PO HS 30 Days #30 tab 08/25/18 11/09/18 History levothyroxine 75 mcg tablet 75 mcg PO DAILY #30 tab 09/12/18 11/09/18 Rx furosemide 40 mg tablet 40 mg PO DAILY PRN #90 tab 09/25/18 11/09/18 Rx losartan 50 mg tablet 50 mg PO DAILY #90 tab 09/25/18 11/09/18 Rx estradiol 1 mg tablet 1 mg PO DAILY #30 tab 10/01/18 11/09/18 Rx ibuprofen 600 mg tablet 600 mg PO QID PRN #120 tab 10/03/18 11/09/18 Rx omeprazole 40 mg capsule,delayed 40 mg PO HS #90 cap 10/07/18 11/09/18 Rx release trazodone 100 mg tablet 200 mg PO HSP PRN #180 tab 10/07/18 11/09/18 Rx benzonatate 100 mg capsule 100 mg PO TID PRN #10 cap 10/20/18 11/09/18 Rx fluticasone 50 mcg/actuation nasal 2 spray INTRANASAL DAILY #16 g 10/23/18 11/09/18 Rx spray,suspension Loratadine [Allergy Relief] 10 mg PO DAILY 11/09/18 11/09/18 History Tizanidine HCl [Tizanidine HCl 4 mg PO BID 11/09/18 11/09/18 History 2mg] Albuterol Sulfate [Proair Hfa 2 puffs IH Q4-6H PRN 11/10/18 11/10/18 History 90mcg/puff Inh] levoFLOXacin [Levaquin 500mg 500 mg PO DAILY #7 tab 11/12/18 Rx tab] predniSONE [Prednisone 20mg 20 mg PO BID #10 tab 11/12/18 Rx Tab] Prescriptions/Medication Reconciliation: New Gentamicin Sulfate [Garamycin 0.3% opth ethan 5mL] 0.2 ml OP Q4H ml Gabapentin [Neurontin 400mg cap] 800 mg PO QID capsule prednisoLONE acetate [Pred Forte 1% opth solution 5mL] 0 ml OP QID bottle levoFLOXacin [Levaquin 500mg tab] 500 mg PO DAILY #7 tab predniSONE [Prednisone 20mg Tab] 20 mg PO BID #10 tab Continue dicyclomine 10 mg capsule 10 mg PO QIDP PRN PRN Reason: IBS montelukast 10 mg tablet 10 mg PO HS 30 Days #30 tab budesonide-formoterol HFA 80 mcg-4.5 mcg/actuation aerosol inhaler 2 puff INHALATION BID gabapentin 800 mg tablet 800 mg PO QID #120 tab furosemide 40 mg tablet 40 mg PO DAILY PRN #90 tab PRN Reason: fluid losartan 50 mg tablet 50 mg PO DAILY #90 tab estradiol 1 mg tablet 1 mg PO DAILY #30 tab trazodone 100 mg tablet 200 mg PO HSP PRN #180 tab PRN Reason: Insomnia fluticasone 50 mcg/actuation nasal spray,suspension 2 spray INTRANASAL DAILY #16 g levothyroxine 75 mcg tablet 75 mcg PO DAILY #30 tab omeprazole 40 mg capsule,delayed release 40 mg PO HS #90 cap benzonatate 100 mg capsule 100 mg PO TID PRN #10 cap PRN Reason: cough Spironolactone [Aldactone 50mg Tab] 50 mg PO DAILY Potassium Chloride [Micro-K 10mEq cap] 10 meq PO DAILY Metoprolol Succinate 25 mg PO DAILY Hyoscyamine Sulfate 0.125 mg SL DAILYP PRN PRN Reason: IBS Loratadine [Allergy Relief] 10 mg PO DAILY Albuterol Sulfate [Proair Hfa 90mcg/puff Inh] 2 puffs IH Q4-6H PRN PRN Reason: Shortness Of Breath Aspirin [Aspirin 81mg EC Tab] 81 mg PO DAILY Tizanidine HCl [Tizanidine HCl 2mg] 4 mg PO BID Discontinued ibuprofen 600 mg tablet 600 mg PO QID PRN #120 tab PRN Reason: pain
== END 2018-11-12 14:42 | disposition home or self-care (01) | DRG 190 ==
LOC: ER 14:07 → 2ND 14:07 → OBSVTOIN 16:16 → 2ND 16:17
PROVIDERS: ADMIT Internal Medicine Adolescent Medicine; ATTEND Emergency Medicine
CPT/HCPCS: 36415; 71020; 71046; 80048; 80053; 82728; 82803; 82962; 83540; 83550; 83605; 83735; 83880; 84484; 85007; 85025; 85378; 86738; 87040; 87070; 87205; 93005; 94640; 94760; 94761; 96374; 99285; J1956; J2405; J3370

== ENCOUNTER → 2018-12-09 18:52 | Outpatient (CLI) | payer BC, SELFPAY ==
[2018-12-10 13:54] LABS: Campylobacter Not Detected (NotDetected); Clostridium Difficile A/B, PCR Not Detected (NotDetected); Enteroaggregative E coli Not Detected (NotDetected); Enteropathogenic E coli Not Detected (NotDetected); Enterotoxigenic E coli Not Detected (NotDetected); Plesimonas Shigalloides, PCR Not Detected (NotDetected); Salmonella, PCR Not Detected (NotDetected); Vibrio Cholerae Not Detected (NotDetected); Vibrio, PCR Not Detected (NotDetected); Yersinia Entercolitica, PCR Not Detected (NotDetected)
[2018-12-10 13:56] LABS: Adenovirus F 40/41, stool Not Detected (NotDetected); Astrovirus Not Detected (NotDetected); Cryptosporidium Not Detected (NotDetected); Cyclospora Cayetanesis Not Detected (NotDetected); Entamoeba histolytica Not Detected (NotDetected); Giardia lamblia Not Detected (NotDetected); Norovirus Not Detected (NotDetected); Rotavirus A Not Detected (NotDetected); Sapovirus Not Detected (NotDetected); Shigella Enterovasive E coli Not Detected (NotDetected)
[2018-12-10 19:23] LABS: Shiga-like toxin E coli Not Detected (NotDetected)
== END ==
PROVIDERS: Visit Provider Nurse Practitioner Family
DX: R19.7 Diarrhea, unspecified (principal)
CPT/HCPCS: 87507

== ENCOUNTER → 2018-12-18 13:47 | Outpatient (CLI) | payer BC, SELFPAY ==
[2018-12-18 15:25] LABS: Basophils % 0.5 % (0.1-2.0); Eosinophils # 0.1 K/mm3 (0.0-0.4); Eosinophils % 1.3 % (0.1-12.0); Hematocrit 34.5 % (37.0-47.0); Hemoglobin 10.9 g/dL (12.2-16.2); Lymphocytes # 1.9 K/mm3 (0.7-4.5); Lymphocytes % 23.2 % (10-50); Mean Corpuscular HGB Conc 31.7 g/dL (31.8-35.4); Mean Corpuscular Hemoglobin 30.3 pg (27.0-31.2); Mean Corpuscular Volume 95.7 fl (81-99); Mean Platelet Volume 8.5 fl (7.4-10.4); Monocytes # 0.5 K/mm3 (0.1-1.0); Monocytes % 5.6 % (1.7-9.3); Neutrophils # 5.7 K/mm3 (1.8-7.8); Neutrophils % 69.5 % (37.0-80.0); Platelet Count 271 K/mm3 (142-424); Red Blood Count 3.61 M/mm3 (4.20-5.40); Red Cell Distribution Width 15.2 % (11.5-17.5); Reticulocyte % (Auto) 1.5 % (0.9-3.2); White Blood Count 8.2 K/mm3 (4.8-10.8)
[2018-12-18 16:00] LABS: Alanine Aminotransferase 18 U/L (12-78); Albumin Level 3.2 gm/dL (3.4-5.0); Alkaline Phosphatase 58 U/L (46-116); Anion Gap 17.6 mEq/L (5-15); Aspartate Amino Transferase 20 U/L (15-37); Bilirubin,Total 0.2 mg/dL (0.2-1.0); Blood Urea Nitrogen 7 mg/dL (7-18); Calcium 8.7 mg/dL (8.5-10.1); Carbon Dioxide 22 mmol/L (21.0-32.0); Chloride 106 mmol/L (98-107); Creatinine,Serum 0.97 mg/dL (0.55-1.02); Estimated Glomerular Filt Rate 59 ml/min (>60); Ferritin 43 ng/mL (8-388); GFR (African American) 71 ML/MIN (>60); Globulin 3.3 gm/dl (1.3-3.2); Glucose 86 mg/dL (74-106); Lactate Dehydrogenase 202 U/L (82-234); Potassium 3.6 mmoL/L (3.5-5.1); Sodium 142 mmol/L (136-145); Thyroid Stimulating Hormone 0.54 uIU/ml (0.358-3.740); Total Protein,Serum 6.5 gm/dL (6.4-8.2)
[2018-12-20 07:37] LABS: Iron 33 ug/dL (27-159); UIBC 342 ug/dL (131-425)
[2018-12-20 14:10] LABS: Free Lambda Lt Chains <1.5 mg/L (5.7-26.3)
[2018-12-22 08:18] LABS: Haptoglobin 151 mg/dL (34-200)
[2018-12-22 08:19] LABS: Folate 10.1 ng/mL (>3.0); Iron Saturation 9 % (15-55)
[2018-12-22 08:25] LABS: Vitamin B12 970 pg/mL (232-1245)
[2018-12-22 16:21] LABS: Albumin 3.4 g/dL (2.9-4.4); Alpha-1-Globulin 0.3 g/dL (0.0-0.4); Alpha-2-Globulin 0.9 g/dL (0.4-1.0); Gamma Globulin 1.3 g/dL (0.4-1.8)
[2018-12-23 15:15] LABS: Immunoglobulin A, Qn 235 mg/dL (87-352); Immunoglobulin G, Qn 832 mg/dL (700-1600)
[2018-12-23 15:32] LABS: Immunoglobulin M, Qn 353 mg/dL (26-217)
== END ==
PROVIDERS: Visit Provider Internal Medicine Medical Oncology
DX: D64.9 Anemia, unspecified (principal)
CPT/HCPCS: 36415; 80053; 82607; 82728; 82746; 82784; 83010; 83540; 83550; 83615; 83883; 84155; 84165; 84443; 85025; 85044; 86334

== ENCOUNTER 2019-01-10 13:21 | Observation (INO) ==
--- NOTE | 2019-01-10 13:41 | Emergency Department Note ---
ED Disposition Clinical Impression: COPD (chronic obstructive pulmonary disease), Hypertension, Chest pain, Obesity (BMI 35.0-39.9 without comorbidity), Anemia, Tobacco use disorder, Pulmonary hypertension, Diastolic dysfunction, COPD exacerbation, Hypertensive urgency, Atypical chest pain Disposition: Still a Patient Condition on Discharge: Fair Referrals: Zeke Chairez MD [Primary Care Provider] - - Critical Care Critical Care Time: No Attestation: On , the high probability of a clinically significant, sudden or life threatening deterioration of the following system(s) required my full and direct attention, intervention and personal management. The time I documented below is in addition to time spent performing reported procedures but includes the following listed in this critical care notation. Medical Decision Making - Medical Records Medical records reviewed: Yes: I reviewed the patient's medical records. - Adolph Inquiry Pt receiving controlled substance: No Adolph was queried for this patient: No Vital Signs: 01/10/19 13:22 01/10/19 13:51 01/10/19 13:56 Temperature 98.4 F Temperature Source Oral Pulse Rate Pulse Rate [Left Radial] 74 65 72 Respiratory Rate 22 Blood Pressure [Right Arm] 172/87 H 177/96 H 151/70 H Blood Pressure Mean [Right Arm] 115 123 97 Blood Pressure Source [Right Arm] Automatic Cuff Automatic Cuff Automatic Cuff Blood Pressure Position [Right Arm] Sitting Sitting Sitting 02 Sat by Pulse Oximetry 97 Oxygen Delivery Method Room Air Oxygen Flow Rate (LPM) 01/10/19 14:04 01/10/19 14:30 01/10/19 15:00 Temperature Temperature Source Pulse Rate 60 Pulse Rate [Left Radial] 72 60 Respiratory Rate 20 Blood Pressure [Right Arm] 151/70 H 125/67 Blood Pressure Mean [Right Arm] 97 86 Blood Pressure Source [Right Arm] Automatic Cuff Automatic Cuff Blood Pressure Position [Right Arm] Sitting Sitting 02 Sat by Pulse Oximetry 96 98 Oxygen Delivery Method Nasal Cannula Nasal Cannula Oxygen Flow Rate (LPM) 2 1.5 - Lab Data Lab Results 01/10/19 13:28: WBC 14.6 H, RBC 4.02 L, Hgb 12.4, Hct 37.9, MCV 94.2, MCH 30.8, MCHC 32.7, RDW 14.9, Plt Count 361, MPV 7.6, Neut % (Auto) 83.5 H, Lymph % (Auto) 12.4, [place] % (Auto) 3.2, Eos % (Auto) 0.8, Baso % (Auto) 0.2, Neut # (Auto) 12.2 H, Lymph # (Auto) 1.8, [place] # (Auto) 0.5, Eos # (Auto) 0.1, Baso # (Auto) 0.0 01/10/19 13:28: D-Dimer < 100 01/10/19 13:28: B-Natriuretic Peptide 261 H 01/10/19 13:57: Sodium 144, Potassium 2.9 L*, Chloride 107, Carbon Dioxide 24, Anion Gap 15.9 H, BUN 12, Creatinine 0.89, Estimated Creat Clear 117, Estimated GFR 65, Est GFR ( Amer) 79, Glucose 100, Calcium 9.0, Troponin I < 0.02 Result diagrams: 01/10/19 13:28 01/10/19 13:57 Orders (Tests/Meds): ED MEDICATIONS Generic Name Dose Route Start Last Admin Trade Name Freq PRN Reason Stop Dose Admin Sodium Chloride 10 ml 01/10/19 13:25 Saline Flush 10ml Syringe IV 02/09/19 13:24 NEEDED PRN Maintain IV Site Discontinued Medications Generic Name Dose Route Start Last Admin Trade Name Freq PRN Reason Stop Dose Admin Albuterol/Ipratropium 3 ml 01/10/19 14:02 01/10/19 14:30 Duoneb 3ml Neb IH 01/10/19 14:03 3 ml ONCE ONE Administration Aspirin 81 mg 01/10/19 13:24 01/10/19 13:37 Aspirin 81mg Chewable Tablet PO 01/10/19 13:25 81 mg ONCE ONE Administration Famotidine 20 mg 01/10/19 13:37 01/10/19 13:40 Pepcid 20mg/2ml Vial IV 01/10/19 13:38 20 mg ONCE ONE Administration Methylprednisolone Sodium Succinate 125 mg 01/10/19 13:37 01/10/19 13:40 Solu-Medrol 125mg/2ml Vial IV 01/10/19 13:38 125 mg ONCE ONE Administration Morphine Sulfate 2 mg 01/10/19 14:06 01/10/19 14:13 Morphine 2mg/Ml Syringe IV 01/10/19 14:07 2 mg ONCE ONE Administration Nitroglycerin 0.4 mg 01/10/19 13:24 01/10/19 13:37 Nitrostat 0.4mg Sl Tablet SL 01/10/19 13:25 0.4 mg ONCE ONE Administration Nitroglycerin 0.5 gm 01/10/19 13:36 01/10/19 13:38 Nitroglycerin 1 Inch Oint Udp TD 01/10/19 13:37 0.5 gm ONCE ONE Administration Ondansetron HCl 4 mg 01/10/19 14:06 01/10/19 14:13 Zofran 4mg/2ml Vial IV 01/10/19 14:07 4 mg ONCE ONE Administration Potassium Chloride 40 meq 01/10/19 14:59 01/10/19 15:13 Klor-Con 20meq Tablet PO 01/10/19 15:00 40 meq ONCE ONE Administration ORDERS Category Date Time Status Chest XR 2 view (NOT portable) [XR chest 2V] Stat Exams 01/10/19 13:24 Taken - ECG Data Tracing #1 Normal sinus rhythm 76/min Baseline artifact, nonspecific ST segment and T wave changes in the anterior leads, no acute findings. ECG initial impression date: 01/10/19 ECG initial impression time: 13:20 Medical Decision Narrative: I had a discussion with the patient that the root of her symptoms to be her uncontrolled blood pressure and COPD exacerbation. She informed me that she had a negative cardiac catheterization a year ago. She has taken her blood pressure medicine this morning. At this point I will give her steroids, DuoNeb, and nitroglycerin paste for blood pressure control. I reviewed her medical records and obtain the echocardiogram below: CONCLUSION: 1. Mildly enlarged left atrium, normal left ventricular size, mild concentric left ventricular hypertrophy, visually estimated ejection fraction 55% with no obvious regional wall motion abnormality, grade 1 diastolic dysfunction seen without tissue Doppler evidence of raised left atrial pressure. 2. Moderately enlarged right ventricle with preserved contractility. 3. Mild mitral and tricuspid regurgitation, calculated right ventricular systolic pressure is 63 mmHg consistent with moderate pulmonary hypertension, inferior vena cava is normal size with normal collapsed. 4. No significant pericardial effusion noted. 1500 The patient chest pain resolved with her blood pressure was gradually decreased to 120/60, her troponin was negative. She felt better. Upon examination she continues to have wheezing in all areas of her lung, her white count was elevated most likely secondary to her steroid use, potassium was 2.9 on I order potassium supplement. [address] Ibanez was home extension agent for Dr. Chairez to discuss the benfit of admitting, her ling exam seemed unchanged. She will be admitted for more steroids, frequent duo nebs and rule out UT protocol Resp/SOB HPI - General Chief Complaint: Chest Pain Stated Complaint: chest pain Time Seen by Provider: 01/10/19 13:25 Mode of Arrival: Ambulatory Source of Information: Patient, Medical Record Limitations: No Limitations - History of Present Illness 58 years old white female smoker, obese and hypertension. The patient reports resuming smoking 2 days ago she was seen by Dr. Gillis in the ED and was given a course of antibiotic. Yesterday she was seen by her oncologist for anemia workup and she was found to have elevated blood pressure. Today she did some housecleaning and 2 hours ago she developed shortness of breath and chest tightness, her chief complaint was "I have a chest pressure and cannot take my breath". The patient denies hemoptysis palpitations nausea vomiting or diarrhea. Upon arrival her systolic blood pressure was 170/70 mmhg. The patient sees Dr. Hutchinson saying she is on Lopressor 25 mg 1 a day, losartan 50 mg 1 a day, and underwent cardiac catheterization with no blockages 1 year ago. Her initial EKG was normal sinus rhythm baseline artifact with no acute findings. MD Complaint: shortness of breath, cough, chest pain Onset (ago): hour(s) (It has worsened in the last 2 hours after activity " House cleanining".) Context: recent illness Severity: moderate Consistency/Duration: constant Relieving factors: rest Exacerbating factors: exertion Known history of: COPD, recurrent pneumonia Associated symptoms: chest pain, cough Treatment prior to arrival: none - Related Data Home Medications Medication Instructions Recorded Confirmed dicyclomine 10 mg capsule 10 mg PO QIDP PRN 10/16/17 01/10/19 Metoprolol Succinate 25 mg PO DAILY 01/11/18 01/10/19 Potassium Chloride [Micro-K 10mEq 10 meq PO DAILY 01/11/18 01/10/19 cap] Spironolactone [Aldactone 50mg Tab] 50 mg PO DAILY 01/11/18 01/10/19 Hyoscyamine Sulfate 0.125 mg SL DAILYP PRN 01/31/18 01/10/19 budesonide-formoterol HFA 80 2 puff INHALATION BID 08/25/18 01/10/19 mcg-4.5 mcg/actuation aerosol inhaler montelukast 10 mg tablet 10 mg PO HS 30 Days #30 tab 08/25/18 01/10/19 Tizanidine HCl [Tizanidine HCl 4 mg PO BID 11/09/18 01/10/19 2mg] predniSONE [Prednisone 10mg Tab 10 mg PO DAILY 01/10/19 01/10/19 Dose-Pack] Previous Rx's Medication Instructions Recorded levothyroxine 75 mcg tablet 75 mcg PO DAILY #30 tab 09/12/18 furosemide 40 mg tablet 40 mg PO DAILY PRN #90 tab 09/25/18 losartan 50 mg tablet 50 mg PO DAILY #90 tab 09/25/18 estradiol 1 mg tablet 1 mg PO DAILY #30 tab 10/01/18 omeprazole 40 mg capsule,delayed 40 mg PO HS #90 cap 10/07/18 release trazodone 100 mg tablet 200 mg PO HSP PRN #180 tab 10/07/18 fluticasone propionate 50 2 spray INTRANASAL DAILY #16 g 10/23/18 mcg/actuation nasal spray,suspension albuterol sulfate HFA 90 2 inh INHALATION TID PRN #18 g 11/19/18 mcg/actuation aerosol inhaler gabapentin 800 mg tablet 800 mg PO QID #120 tab 11/19/18 Phenylephrine HCl/Prometh HCl 5 ml PO Q4HP PRN #120 ml 01/02/19 [Phenergan VC Plain 5mL UDC] Allergies Allergy/AdvReac Type Severity Reaction Status Date / Time Cephalosporins Allergy RASH Verified 01/09/19 13:40 erythromycin base Allergy Hives Verified 01/09/19 13:40 minocycline Allergy RASH Verified 01/09/19 13:40 penicillin G Allergy Hives Verified 01/09/19 13:40 Sulfa (Sulfonamide Allergy RASH Verified 01/09/19 13:40 Antibiotics) [facility] History - Hepatitis A Screen Attestation statement:: This patient has been screened for Hepatitis A risk factors. I have reviewed the patient's past medical history: Yes (I reviewed her ED visits and cardiac catheterization.) Medical History: Reports:: Anxiety, Congestive Heart Failure, Coronary Artery Disease, Depression, Gastroesophageal Reflux Disease(GERD), Hypertension, Lung Disease, MRSA Denies:: Cancer, Diabetes Mellitus Type 1, Diabetes Mellitus Type 2, Internal Pacemaker, Seizures Other Medical History: Reports: Anemia, Arthritis, Fibromyalgia, Hypothyroidism, Thyroid Disease, Other Comment: SLEEP APNEA Laterality Cases: Bilateral: Tonsillectomy Other Surgeries: Yes: Angioplasty, Cardiac Catheterization, Cholecystectomy, Colonoscopy, Dilation and Curettage, Hysterectomy-Total, Other. No: Pacemaker Amputation: No Fractures: No Comment: 2 CYSTS REMOVED FROM RIGHT SHOULDER - Social History Smoking Status: Never smoker Tobacco Type: cigarettes # Packs/Day (cigarettes): 1 #Yrs smoked (if former smoker): 20 Alcohol Intake: never Alcohol Intake Frequency:: holidays/special occasions only Substance Use Type: denies use Occupational Status: employed Housing: house Household Members: family - Psychiatric History Pschychiatric History:: Reports:: Anxiety, Depression Family Hx:: Anemia, Bleeding Disorder, Cancer, Coronary Artery Disease, Hyperlipidemia, Hypertension, Stroke, Thyroid Disorder ROS Obtained: Yes All systems reviewed & no additional complaints Physical Exam - General General appearance: alert, in no apparent distress - Head Head exam: atraumatic, normocephalic, normal inspection - Eye Eye exam: Present: normal appearance, PERRL, EOMI. Absent: scleral icterus, nystagmus - ENT ENT exam: Present: normal exam, normal oropharynx, mucous membranes moist, TM's normal bilaterally, normal external ear exam - Neck Neck exam: Present: normal inspection, full ROM, trachea midline. Absent: tenderness, meningismus, lymphadenopathy - Chest Chest inspection: Present: normal inspection, symmetric chest wall rise. Absent: tenderness - Respiratory Respiratory exam: Present: normal lung sounds bilaterally, wheezes, other (Bilateral inspiratory and expiratory wheezing. ). Absent: respiratory distress - Cardiovascular Cardiovascular exam: Present: regular rate, normal rhythm. Absent: JVD - Abdominal Exam Abdominal exam: Present: soft, normal bowel sounds, other (Equal bilateral femoral pulse.). Absent: distention, tenderness, guarding, rebound, rigidity, Dominguez's sign, tenderness at McBurney's Point - External exam: Present: normal external exam - Extremities Exam Extremities exam: Present: normal inspection, full ROM, normal capillary refill. Absent: tenderness, pedal edema, calf tenderness - Back Exam Back exam: Present: normal inspection. Absent: tenderness, CVA tenderness (R), CVA tenderness (L) - Neurological Exam Neurological exam: Present: alert, oriented X3, CN II-XII intact, normal gait, motor sensory deficit, reflexes normal - Psychiatric Psychiatric exam: Present: normal affect, normal mood - Skin Skin exam: Present: warm, dry, intact, other (Tanned, she is using the tanning bed.) - Lymphatic Lymphatic Findings: no adenopathy
[2019-01-10 13:50] LABS: Chloride 107 mmol/L (98-107)
[2019-01-10 13:55] LABS: Basophils % 0.2 % (0.1-2.0); Eosinophils # 0.1 K/mm3 (0.0-0.4); Eosinophils % 0.8 % (0.1-12.0); Hematocrit 37.9 % (37.0-47.0); Hemoglobin 12.4 g/dL (12.2-16.2); Lymphocytes # 1.8 K/mm3 (0.7-4.5); Lymphocytes % 12.4 % (10-50); Mean Corpuscular HGB Conc 32.7 g/dL (31.8-35.4); Mean Corpuscular Hemoglobin 30.8 pg (27.0-31.2); Mean Corpuscular Volume 94.2 fl (81-99); Mean Platelet Volume 7.6 fl (7.4-10.4); Monocytes # 0.5 K/mm3 (0.1-1.0); Monocytes % 3.2 % (1.7-9.3); Neutrophils # 12.2 K/mm3 (1.8-7.8); Neutrophils % 83.5 % (37.0-80.0); Platelet Count 361 K/mm3 (142-424); Red Blood Count 4.02 M/mm3 (4.20-5.40); Red Cell Distribution Width 14.9 % (11.5-17.5); White Blood Count 14.6 K/mm3 (4.8-10.8)
[2019-01-10 14:19] LABS: Anion Gap 15.9 mEq/L (5-15); Blood Urea Nitrogen 12 mg/dL (7-18); Carbon Dioxide 24 mmol/L (21.0-32.0); Glucose 100 mg/dL (74-106); Sodium 144 mmol/L (136-145)
[2019-01-10 14:20] LABS: Potassium 2.9 mmoL/L (3.5-5.1)
[2019-01-11 08:52] LABS: Eosinophils # 0.1 K/mm3 (0.0-0.4); Eosinophils % 0.6 % (0.1-12.0); Hematocrit 34.8 % (37.0-47.0); Hemoglobin 11.3 g/dL (12.2-16.2); Lymphocytes # 0.9 K/mm3 (0.7-4.5); Lymphocytes % 5.7 % (10-50); Mean Corpuscular HGB Conc 32.4 g/dL (31.8-35.4); Mean Corpuscular Hemoglobin 30.5 pg (27.0-31.2); Mean Corpuscular Volume 94.1 fl (81-99); Mean Platelet Volume 7.1 fl (7.4-10.4); Monocytes # 0.4 K/mm3 (0.1-1.0); Monocytes % 2.2 % (1.7-9.3); Neutrophils # 15.2 K/mm3 (1.8-7.8); Neutrophils % 91.6 % (37.0-80.0); Platelet Count 336 K/mm3 (142-424); Red Cell Distribution Width 14.5 % (11.5-17.5); White Blood Count 16.6 K/mm3 (4.8-10.8)
[2019-01-11 08:56] LABS: Anion Gap 13.8 mEq/L (5-15); Calcium 8.9 mg/dL (8.5-10.1); Potassium 3.8 mmoL/L (3.5-5.1)
--- NOTE | 2019-01-11 09:07 | History & Physical Report ---
*Admission Date: 01/10/19 *Chief complaint: chest pain *History of present illness: this wf presented to ed with pressure ant chest pain with rad to lt upper ext - had cath 07/16 - no stents at that time - pt with nicolas by my calculation 2-3 - doing better today -enz ok -8 years old white female smoker, obese and hypertension. The patient reports resuming smoking 2 days ago she was seen by Dr. Gillis in the ED and was given a course of antibiotic. Yesterday she was seen by her oncologist for anemia workup and she was found to have elevated blood pressure. Today she did some housecleaning and 2 hours ago she developed shortness of breath and chest tightness, her chief complaint was "I have a chest pressure and cannot take my breath". The patient denies hemoptysis palpitations nausea vomiting or diarrhea. Upon arrival her systolic blood pressure was 170/70 mmhg. The patient sees Dr. Hutchinson saying she is on Lopressor 25 mg 1 a day, losartan 50 mg 1 a day, and underwent cardiac catheterization with no blockages 1 year ago. Her initial EKG was normal sinus rhythm baseline artifact with no acute findings. pt was admitted for eval and card enz and card eval [facility] History I have reviewed the patient's past medical history: Yes Medical History: Reports:: Anxiety, Congestive Heart Failure, Coronary Artery Disease, Depression, Gastroesophageal Reflux Disease(GERD), Hypertension, Lung Disease, MRSA Denies:: Cancer, Diabetes Mellitus Type 1, Diabetes Mellitus Type 2, Internal Pacemaker, Seizures *Have you ever received a pneumonia vaccine?: Yes *Have you received a flu vaccine this season?: No Other Medical History: Reports: Anemia, Arthritis, Fibromyalgia, Hypothyroidism, Thyroid Disease, Other Laterality Cases: Bilateral: Tonsillectomy Other Surgeries: Yes: Angioplasty, Cardiac Catheterization, Cholecystectomy, Colonoscopy, Dilation and Curettage, Hysterectomy-Total, Other. No: Pacemaker Amputation: No Fractures: No - *Social History Educational Level: Completed College Smoking Status: Former smoker Tobacco Type: cigarettes # Packs/Day (cigarettes): 1 #Yrs smoked (if former smoker): 30 Smoking End Date: 06/30/2019 Alcohol Intake: never Alcohol Intake Frequency:: holidays/special occasions only Substance Use Type: denies use *Occupational Status:: employed Housing: house Household Members: family *Travel in the last 8 weeks: None - Psychiatric History Expresses thoughts of harming self/others: None Suicide Plan Description: No Plan Pschychiatric History:: Reports:: Anxiety, Depression Family Hx:: Anemia, Bleeding Disorder, Cancer, Coronary Artery Disease, Hyperlipidemia, Hypertension, Stroke, Thyroid Disorder Review of Systems - Review of Systems Review of systems:: pertinent systems reviewed and negative unless documented below - Constitutional Denies fever(s) - Eyes Denies change in vision - ENT Denies sore throat - *Cardiovascular Reports chest pain at rest, Reports chest pain with activity, Reports shortness of breath, Reports radiating jaw, neck or arm pain - *Respiratory Reports shortness of breath, Reports shortness of breath with activity, Denies cough, Denies coughing up blood - *Gastrointestinal Denies abdominal pain - *Genitourinary Denies blood in urine - *Musculoskeletal Denies joint pain - Integumentary/Breasts Denies rash - *Neurologic Denies seizure-like activity Meds Home Medications Medication Instructions Recorded Confirmed Type dicyclomine 10 mg capsule 10 mg PO QIDP PRN 10/16/17 01/10/19 History Metoprolol Succinate 25 mg PO DAILY 01/11/18 01/10/19 History Potassium Chloride [Micro-K 10mEq 10 meq PO DAILY 01/11/18 01/10/19 History cap] Spironolactone [Aldactone 50mg Tab] 50 mg PO DAILY 01/11/18 01/10/19 History Hyoscyamine Sulfate 0.125 mg SL DAILYP PRN 01/31/18 01/10/19 History budesonide-formoterol HFA 80 2 puff INHALATION BID 08/25/18 01/10/19 History mcg-4.5 mcg/actuation aerosol inhaler montelukast 10 mg tablet 10 mg PO HS 30 Days #30 tab 08/25/18 01/10/19 History levothyroxine 75 mcg tablet 75 mcg PO DAILY #30 tab 09/12/18 01/10/19 Rx furosemide 40 mg tablet 40 mg PO DAILY PRN #90 tab 09/25/18 01/10/19 Rx losartan 50 mg tablet 50 mg PO DAILY #90 tab 09/25/18 01/10/19 Rx estradiol 1 mg tablet 1 mg PO DAILY #30 tab 10/01/18 01/10/19 Rx omeprazole 40 mg capsule,delayed 40 mg PO HS #90 cap 10/07/18 01/10/19 Rx release trazodone 100 mg tablet 200 mg PO HSP PRN #180 tab 10/07/18 01/10/19 Rx fluticasone propionate 50 2 spray INTRANASAL DAILY #16 g 10/23/18 01/10/19 Rx mcg/actuation nasal spray,suspension Tizanidine HCl [Tizanidine HCl 4 mg PO BID 11/09/18 01/10/19 History 2mg] albuterol sulfate HFA 90 2 inh INHALATION TID PRN #18 g 11/19/18 01/10/19 Rx mcg/actuation aerosol inhaler gabapentin 800 mg tablet 800 mg PO QID #120 tab 11/19/18 01/10/19 Rx Phenylephrine HCl/Prometh HCl 5 ml PO Q4HP PRN #120 ml 01/02/19 01/10/19 Rx [Phenergan VC Plain 5mL UDC] predniSONE [Prednisone 10mg Tab 10 mg PO DAILY 01/10/19 01/10/19 History Dose-Pack] Allergies Allergy/AdvReac Type Severity Reaction Status Date / Time Cephalosporins Allergy RASH Verified 01/09/19 13:40 erythromycin base Allergy Hives Verified 01/09/19 13:40 minocycline Allergy RASH Verified 01/09/19 13:40 penicillin G Allergy Hives Verified 01/09/19 13:40 Sulfa (Sulfonamide Allergy RASH Verified 01/09/19 13:40 Antibiotics) Exam Vital signs and Labs for Last 24 Hours: Temp Pulse Resp BP Pulse Ox 97.5 F L 72 20 127/54 L 97 01/11/19 08:00 01/11/19 08:00 01/11/19 08:00 01/11/19 08:00 01/11/19 08:00 Laboratory Results - last 24 hr 01/10/19 13:28: WBC 14.6 H, RBC 4.02 L, Hgb 12.4, Hct 37.9, MCV 94.2, MCH 30.8, MCHC 32.7, RDW 14.9, Plt Count 361, MPV 7.6, Neut % (Auto) 83.5 H, Lymph % (Auto) 12.4, [place] % (Auto) 3.2, Eos % (Auto) 0.8, Baso % (Auto) 0.2, Neut # (Auto) 12.2 H, Lymph # (Auto) 1.8, [place] # (Auto) 0.5, Eos # (Auto) 0.1, Baso # (Auto) 0.0 01/10/19 13:28: D-Dimer < 100 01/10/19 13:28: B-Natriuretic Peptide 261 H 01/10/19 13:57: Sodium 144, Potassium 2.9 L*, Chloride 107, Carbon Dioxide 24, Anion Gap 15.9 H, BUN 12, Creatinine 0.89, Estimated Creat Clear 117, Estimated GFR 65, Est GFR ( Amer) 79, Glucose 100, Calcium 9.0, Troponin I < 0.02 01/10/19 18:15: Troponin I < 0.02 01/11/19 00:25: Troponin I < 0.02 01/11/19 08:42: WBC 16.6 H, RBC 3.70 L, Hgb 11.3 L, Hct 34.8 L, MCV 94.1, MCH 30.5, MCHC 32.4, RDW 14.5, Plt Count 336, MPV 7.1 L, Neut % (Auto) 91.6 H, Lymph % (Auto) 5.7 L, [place] % (Auto) 2.2, Eos % (Auto) 0.6, Baso % (Auto) 0.0 L, Neut # (Auto) 15.2 H, Lymph # (Auto) 0.9, [place] # (Auto) 0.4, Eos # (Auto) 0.1, Baso # (Auto) 0.0 01/11/19 08:42: Sodium 139, Potassium 3.8 D, Chloride 103, Carbon Dioxide 26, Anion Gap 13.8, BUN 13, Creatinine 1.06 H, Estimated Creat Clear 98, Estimated GFR 53 L, Est GFR ( Amer) 64, Glucose 192 H D, Calcium 8.9 I & O for Last 24 hours: Intake & Output 01/08/19 01/09/19 01/10/19 01/11/19 11:59 11:59 11:59 11:59 Intake Total 1832 / 1832 Output Total 500 / 500 Balance 1332 / 1332 Weight 235 lb 6 oz - Constitutional no acute distress, obese - *Routine HEENT Exam Head: Present: normocephalic Eye: Present: EOMI, PERRL ENT: Present: mucous membranes dry - *Routine Neck Exam Present: supple. Absent: JVD - *Routine Respiratory Exam Present: CTA bilaterally - *Routine Cardiovascular Exam Present: RRR, murmur - *Routine Abdominal Exam Present: soft - *Routine Extremities Exam Absent: calf tenderness - *Routine Skin Exam Present: intact - *Routine Neurological Exam Present: alert, oriented X3, CN II-XII intact - Routine Psychiatric Exam Present: normal affect Assessment and Plan (1) Angina at rest Current visit: Yes Status: Acute Category: Medical Code(s): I20.8 - Other forms of angina pectoris (2) Pulmonary hypertension Current visit: Yes Status: Acute Category: Medical Code(s): I27.20 - Pulmonary hypertension, unspecified (3) Obesity Current visit: Yes Status: Acute Qualifiers: Obesity type: due to excess calories Obesity classification: adult class 3 (BMI >= 40) Serious obesity comorbidity presence: with serious comorbidity Body mass index: BMI 40.0-44.9 Qualified Code(s): E66.01 - Morbid (severe) obesity due to excess calories; Z68.41 - Body mass index (BMI) 40.0-44.9, adult Category: Medical Code(s): E66.9 - Obesity, unspecified (4) Tobacco use Current visit: Yes Status: Acute Category: Medical Code(s): Z72.0 - Tobacco use (5) Hypokalemia Current visit: Yes Status: Acute Category: Medical Code(s): E87.6 - Hypokalemia (6) COPD exacerbation Current visit: Yes Status: Acute Category: Medical Code(s): J44.1 - Chronic obstructive pulmonary disease with (acute) exacerbation (7) Hypertensive urgency Current visit: Yes Status: Acute Category: Medical Code(s): I16.0 - Hypertensive urgency (8) Headache Current visit: Yes Status: Acute Qualifiers: Headache type: unspecified Headache chronicity pattern: acute headache Intractability: not intractable Qualified Code(s): R51 - Headache Category: Medical Code(s): R51 - Headache
[2019-01-11 09:25] LABS: Lymphocytes % 8 % (10-50); Monocytes % 1 % (2-9); Neutrophils % 91 % (42-76); RBC Morphology Normal; Total Cells Counted 100
--- NOTE | 2019-01-11 10:11 | Pharmacy Consult Notes ---
[facility] Pharmacy VTE Monitoring - Patient Demographics Admission date: 01/10/19 Report Date: 01/11/19 Time: 10:10 Allergies/Adverse Reactions: Patient Allergies Cephalosporins Allergy (Verified 01/09/19 13:40) RASH erythromycin base Allergy (Verified 01/09/19 13:40) Hives minocycline Allergy (Verified 01/09/19 13:40) RASH penicillin G Allergy (Verified 01/09/19 13:40) Hives Sulfa (Sulfonamide Antibiotics) Allergy (Verified 01/09/19 13:40) RASH Height: 1.63 m Weight: 106.764 kg Patient Problems: Current Active Problems COPD exacerbation (Acute) Anemia (Acute) COPD (chronic obstructive pulmonary disease) (Acute) Chest pain (Acute) Obesity (BMI 35.0-39.9 without comorbidity) (Acute) Tobacco use disorder (Acute) Pulmonary hypertension (Acute) Hypertensive urgency (Acute) Atypical chest pain (Acute) Angina at rest (Acute) Obesity (Acute) Tobacco use (Acute) Hypokalemia (Acute) Headache (Acute) Hypertensive disorder (Chronic) Diastolic dysfunction (Chronic) - VTE Risk Labs: VTE Related Lab Results Hgb 11.3 g/dL (12.2-16.2) L 01/11/19 08:42 Hct 34.8 % (37.0-47.0) L 01/11/19 08:42 Plt Count 336 K/mm3 (142-424) 01/11/19 08:42 BUN 13 mg/dL (7-18) 01/11/19 08:42 Creatinine 1.06 mg/dL (0.55-1.02) H 01/11/19 08:42 Estimated Creat Clear 98 mL/min (50-200) 01/11/19 08:42 Was VTE Risk Assessment Performed: Yes VTE Score: 8 VTE Risk Level: Moderate Risk - Prophylaxis VTE Prophylaxis Ordered?: Yes Types of VTE Prophylaxis: TEDS Knee High Location of Applied Device: Bilateral Lower Extremeties - VTE Diagnosis Confirmed Treatment or plan recommended: Continue Current Treatment
--- NOTE | 2019-01-12 08:28 | Consult Report ---
History of Present Illness Consult date: 01/12/19 Requesting physician: Zeke Chairez Consult reason: shortness of breath Chief complaint: CP, SOA Additional Medical History:: 1. Tobacco use since age 25, 1 ppd at least A. COPD 2. IBS, diarrhea predominant, followed by GI 3. Chronic pancreatitis, previous workup by GI 4. HTN, treated for 5 yrs A. Echo, 12/2018, preliminary results show normal LVEF with mild MR/TR. 5. Status post cholecystectomy, hysterectomy due to endometriosis and pelvic inflammatory disease 6. Chronic back pain with chronic pain medication 7. Hypothyroidism 8. Congestive heart failure, 05/2017 A. Right and left heart catheterization, 06/12/17, mild nonocclusive coronary artery disease. Mild pulmonary hypertension. No evidence of intra- cardiopulmonary shunt. Congestive heart failure felt secondary to diastolic dysfunction with improvement after 6 L diuresis overnight History of present illness: 58 yo WF with mild CAD, COPD and mild pulmonary HTN was admitted for an episode of SS chest pressure/discomfort with left arm pain, nausea and diaphoresis. Pt has been on steroids and antibiotics recently for suspected URI. In ER, EKG showed sinus rhythm with no acute changes. Troponins returned normal. BP noted to be elevated on admission. Symptoms seemed to improve with reduction in BP. Cardiology consulted for evaluation and recommendations. Preliminary echo shows normal LVEF with mild MR/TR. [facility] History Medical History: Reports:: Anxiety, Congestive Heart Failure, Coronary Artery Disease, Depression, Gastroesophageal Reflux Disease(GERD), Hypertension, Lung Disease, MRSA Denies:: Cancer, Diabetes Mellitus Type 1, Diabetes Mellitus Type 2, Internal Pacemaker, Seizures *Have you ever received a pneumonia vaccine?: Yes *Have you received a flu vaccine this season?: No Other Medical History: Reports: Anemia, Arthritis, Fibromyalgia, Hypothyroidism, Thyroid Disease, Other Laterality Cases: Bilateral: Tonsillectomy Other Surgeries: Yes: Angioplasty, Cardiac Catheterization, Cholecystectomy, Co lonoscopy, Dilation and Curettage, Hysterectomy-Total, Other. No: Pacemaker Amputation: No Fractures: No - *Social History Educational Level: Completed College Smoking Status: Former smoker Tobacco Type: cigarettes # Packs/Day (cigarettes): 1 #Yrs smoked (if former smoker): 30 Smoking End Date: 06/30/2019 Alcohol Intake: never Alcohol Intake Frequency:: holidays/special occasions only Substance Use Type: denies use *Occupational Status:: employed Housing: house Household Members: family *Travel in the last 8 weeks: None - Psychiatric History Expresses thoughts of harming self/others: None Suicide Plan Description: No Plan Pschychiatric History:: Reports:: Anxiety, Depression Family Hx:: Anemia, Bleeding Disorder, Cancer, Coronary Artery Disease, Hyperlipidemia, Hypertension, Stroke, Thyroid Disorder Meds Home Medications Medication Instructions Recorded Confirmed Type dicyclomine 10 mg capsule 10 mg PO QIDP PRN 10/16/17 01/10/19 History Metoprolol Succinate 25 mg PO DAILY 01/11/18 01/10/19 History Potassium Chloride [Micro-K 10mEq 10 meq PO DAILY 01/11/18 01/10/19 History cap] Spironolactone [Aldactone 50mg Tab] 50 mg PO DAILY 01/11/18 01/10/19 History Hyoscyamine Sulfate 0.125 mg SL DAILYP PRN 01/31/18 01/10/19 History budesonide-formoterol HFA 80 2 puff INHALATION BID 08/25/18 01/10/19 History mcg-4.5 mcg/actuation aerosol inhaler montelukast 10 mg tablet 10 mg PO HS 30 Days #30 tab 08/25/18 01/10/19 History levothyroxine 75 mcg tablet 75 mcg PO DAILY #30 tab 09/12/18 01/10/19 Rx furosemide 40 mg tablet 40 mg PO DAILY PRN #90 tab 09/25/18 01/10/19 Rx losartan 50 mg tablet 50 mg PO DAILY #90 tab 09/25/18 01/10/19 Rx estradiol 1 mg tablet 1 mg PO DAILY #30 tab 10/01/18 01/10/19 Rx omeprazole 40 mg capsule,delayed 40 mg PO HS #90 cap 10/07/18 01/10/19 Rx release trazodone 100 mg tablet 200 mg PO HSP PRN #180 tab 10/07/18 01/10/19 Rx fluticasone propionate 50 2 spray INTRANASAL DAILY #16 g 10/23/18 01/10/19 Rx mcg/actuation nasal spray,suspension Tizanidine HCl [Tizanidine HCl 4 mg PO BID 11/09/18 01/10/19 History 2mg] albuterol sulfate HFA 90 2 inh INHALATION TID PRN #18 g 11/19/18 01/10/19 Rx mcg/actuation aerosol inhaler gabapentin 800 mg tablet 800 mg PO QID #120 tab 11/19/18 01/10/19 Rx Phenylephrine HCl/Prometh HCl 5 ml PO Q4HP PRN #120 ml 01/02/19 01/10/19 Rx [Phenergan VC Plain 5mL UDC] predniSONE [Prednisone 10mg Tab 0 mg PO DIRECTED 01/10/19 01/11/19 History Dose-Pack] Benzonatate [Tessalon Perle 100mg 100 mg PO BIDP PRN 01/11/19 01/11/19 History Cap] Allergies Allergy/AdvReac Type Severity Reaction Status Date / Time Cephalosporins Allergy RASH Verified 01/09/19 13:40 erythromycin base Allergy Hives Verified 01/09/19 13:40 minocycline Allergy RASH Verified 01/09/19 13:40 penicillin G Allergy Hives Verified 01/09/19 13:40 Sulfa (Sulfonamide Allergy RASH Verified 01/09/19 13:40 Antibiotics) Review of Systems - *Cardiovascular Reports chest pain, Reports shortness of breath with activity - *Respiratory Reports cough, Reports shortness of breath with activity - *Gastrointestinal Denies abdominal pain, Denies loose stools - *Genitourinary Denies difficulty urinating, Denies blood in urine - *Musculoskeletal Denies joint pain, Denies back pain - *Neurologic Denies seizure-like activity Exam Vital signs and Labs for Last 24 Hours: Temp Pulse Resp BP Pulse Ox 98.1 F 55 L 18 141/75 H 98 01/12/19 08:00 01/12/19 08:00 01/12/19 08:00 01/12/19 08:00 01/12/19 08:00 Laboratory Results - last 24 hr 01/11/19 08:42: WBC 16.6 H, RBC 3.70 L, Hgb 11.3 L, Hct 34.8 L, MCV 94.1, MCH 30.5, MCHC 32.4, RDW 14.5, Plt Count 336, MPV 7.1 L, Neut % (Auto) 91.6 H, Lymph % (Auto) 5.7 L, Harper % (Auto) 2.2, Eos % (Auto) 0.6, Baso % (Auto) 0.0 L, Neut # (Auto) 15.2 H, Lymph # (Auto) 0.9, Harper # (Auto) 0.4, Eos # (Auto) 0.1, Baso # (Auto) 0.0, Total Counted 100, Neutrophils % (Manual) 91 H, Lymphocytes % (Manual) 8 L, Monocytes % (Manual) 1 L, Platelet Estimate Normal, RBC Morphology Normal 01/11/19 08:42: Sodium 139, Potassium 3.8 D, Chloride 103, Carbon Dioxide 26, Anion Gap 13.8, BUN 13, Creatinine 1.06 H, Estimated Creat Clear 98, Estimated GFR 53 L, Est GFR ( Amer) 64, Glucose 192 H D, Calcium 8.9 I & O for Last 24 hours: Intake & Output 01/09/19 01/10/19 01/11/19 01/12/19 11:59 11:59 11:59 11:59 Intake Total 1832 / 1832 670 / 670 Output Total 500 / 500 Balance 1332 / 1332 670 / 670 Weight 235 lb 6 oz 252 lb 8 oz - *Routine Neck Exam Present: supple. Absent: JVD, carotid bruit - *Routine Respiratory Exam Present: decreased breath sounds, rhonchi, wheezes. Absent: accessory muscle use, rales - *Routine Cardiovascular Exam Present: RRR. Absent: murmur, gallop, rubs - *Routine Abdominal Exam Present: soft. Absent: tenderness, distended, guarding - *Routine Extremities Exam Absent: edema, calf tenderness - *Routine Neurological Exam Present: alert, oriented X3, moving all extremities Assessment and Plan (1) Angina at rest Current visit: Yes Status: Acute Category: Medical Code(s): I20.8 - Other forms of angina pectoris (2) Pulmonary hypertension Current visit: Yes Status: Acute Category: Medical Code(s): I27.20 - Pulmonary hypertension, unspecified (3) Obesity Current visit: Yes Status: Acute Qualifiers: Obesity type: due to excess calories Obesity classification: adult class 3 (BMI >= 40) Serious obesity comorbidity presence: with serious comorbidity Body mass index: BMI 40.0-44.9 Qualified Code(s): E66.01 - Morbid (severe) obesity due to excess calories; Z68.41 - Body mass index (BMI) 40.0-44.9, adult Category: Medical Code(s): E66.9 - Obesity, unspecified (4) Tobacco use Current visit: Yes Status: Acute Category: Medical Code(s): Z72.0 - Tobacco use (5) Hypokalemia Current visit: Yes Status: Acute Category: Medical Code(s): E87.6 - Hypokalemia (6) COPD exacerbation Current visit: Yes Status: Acute Category: Medical Code(s): J44.1 - Chronic obstructive pulmonary disease with (acute) exacerbation (7) Hypertensive urgency Current visit: Yes Status: Acute Category: Medical Code(s): I16.0 - Hypertensive urgency (8) Headache Current visit: Yes Status: Acute Qualifiers: Headache type: unspecified Headache chronicity pattern: acute headache Intractability: not intractable Qualified Code(s): R51 - Headache Category: Medical Code(s): R51 - Headache - Assessment and plan all Dx Assessment and Plan for all problems:: 1. WF with mild CAD and COPD with episode of chest pain, SOA without EKG changes or elevated troponins. Will recommend continuing medical therapy with increase in diuretics short term (continue spironolactone 50 mg daily and use lasix 40 mg daily for 5 days then back to daily PRN) due to mildly elevated BNP in setting of pulmonary HTN. 2. OK for discharge home from Cardiology standpoint with follow up in 1-2 wks.
--- NOTE | 2019-01-12 12:27 | Discharge Summary ---
General - General Admission date:: 01/10/19 Discharge date: 01/12/19 HPI HPI: this wf presented to ed with pressure ant chest pain with rad to lt upper ext - had cath 07/16 - no stents at that time - pt with nicolas by my calculation 2-3 - doing better today -enz ok -8 years old white female smoker, obese and hypertension. The patient reports resuming smoking 2 days ago she was seen by Dr. Gillis in the ED and was given a course of antibiotic. Yesterday she was seen by her oncologist for anemia workup and she was found to have elevated blood pressure. Today she did some housecleaning and 2 hours ago she developed shortness of breath and chest tightness, her chief complaint was "I have a chest pressure and cannot take my breath". The patient denies hemoptysis palpitations nausea vomiting or diarrhea. Upon arrival her systolic blood pressure was 170/70 mmhg. The patient sees Dr. Hutchinson saying she is on Lopressor 25 mg 1 a day, losartan 50 mg 1 a day, and underwent cardiac catheterization with no blockages 1 year ago. Her initial EKG was normal sinus rhythm baseline artifact with no acute findings. pt was admitted for eval and card enz and card eval Hospital Course Hospital Course: pt was admitted with new onset chest pain and had neg serial enz and was seen by card -Tobacco use since age 25, 1 ppd at least A. COPD 2. IBS, diarrhea predominant, followed by GI 3. Chronic pancreatitis, previous workup by GI 4. HTN, treated for 5 yrs A. Echo, 12/2018, preliminary results show normal LVEF with mild MR/TR. 5. Status post cholecystectomy, hysterectomy due to endometriosis and pelvic inflammatory disease 6. Chronic back pain with chronic pain medication 7. Hypothyroidism 8. Congestive heart failure, 05/2017 A. Right and left heart catheterization, 06/12/17, mild nonocclusive coronary artery disease. Mild pulmonary hypertension. No evidence of intra- cardiopulmonary shunt. Congestive heart failure felt secondary to diastolic dysfunction with improvement after 6 L diuresis overnight History of present illness: 58 yo WF with mild CAD, COPD and mild pulmonary HTN was admitted for an episode of SS chest pressure/discomfort with left arm pain, nausea and diaphoresis. Pt has been on steroids and antibiotics recently for suspected URI. In ER, EKG showed sinus rhythm with no acute changes. Troponins returned normal. BP noted to be elevated on admission. Symptoms seemed to improve with reduction in BP. Cardiology consulted for evaluation and recommendations. Preliminary echo shows normal LVEF with mild MR/TR F with mild CAD and COPD with episode of chest pain, SOA without EKG changes or elevated troponins. Will recommend continuing medical therapy with increase in diuretics short term (continue spironolactone 50 mg daily and use lasix 40 mg daily for 5 days then back to daily PRN) due to mildly elevated BNP in setting of pulmonary HTN. 2. OK for discharge home from Cardiology standpoint with follow up in 1-2 wks. pt with bp which has improved and will be d/c today and followed by pcp and card Objective Vital signs: Temp Pulse Resp BP Pulse Ox 97.9 F 61 18 106/56 L 100 01/12/19 11:43 01/12/19 11:43 01/12/19 11:43 01/12/19 11:43 01/12/19 11:43 no acute distress, obese - *Routine HEENT Exam Head: Present: normocephalic Eye: Present: EOMI, PERRL ENT: Present: mucous membranes dry - *Routine Neck Exam Present: supple - *Routine Respiratory Exam Present: wheezes - *Routine Cardiovascular Exam Present: RRR, murmur - *Routine Abdominal Exam Present: soft - *Routine Extremities Exam Present: edema. Absent: calf tenderness - *Routine Skin Exam Present: intact - *Routine Neurological Exam Present: alert, oriented X3, CN II-XII intact - Routine Psychiatric Exam Present: normal affect DS: Diagnosis - Discharge Diagnosis (1) Angina at rest Status: Acute (2) Pulmonary hypertension Status: Acute (3) Obesity Status: Acute (4) Tobacco use Status: Acute (5) Hypokalemia Status: Acute (6) COPD exacerbation Status: Acute (7) Hypertensive urgency Status: Acute (8) Headache Status: Acute (9) IBS (irritable bowel syndrome) Status: Acute (10) Hypothyroidism (acquired) Status: Acute (11) Diastolic CHF, acute on chronic Status: Acute (12) Chronic pain disorder Status: Acute Discharge Plan - Patient Discharge Instructions ACTIVITY: Continue current activity DIET: continue same diet Patient Instructions: Nicotine Addiction, High Blood Pressure, DI for Chronic Obstructive Pulmonary Disease, DI for Hypokalemia - Follow up Plan Disposition: Home, Self-Jail Medications: Home Medications Medication Instructions Recorded Confirmed Type dicyclomine 10 mg capsule 10 mg PO QIDP PRN 10/16/17 01/10/19 History Metoprolol Succinate 25 mg PO DAILY 01/11/18 01/10/19 History Potassium Chloride [Micro-K 10mEq 10 meq PO DAILY 01/11/18 01/10/19 History cap] Spironolactone [Aldactone 50mg Tab] 50 mg PO DAILY 01/11/18 01/10/19 History Hyoscyamine Sulfate 0.125 mg SL DAILYP PRN 01/31/18 01/10/19 History budesonide-formoterol HFA 80 2 puff INHALATION BID 08/25/18 01/10/19 History mcg-4.5 mcg/actuation aerosol inhaler montelukast 10 mg tablet 10 mg PO HS 30 Days #30 tab 08/25/18 01/10/19 History levothyroxine 75 mcg tablet 75 mcg PO DAILY #30 tab 09/12/18 01/10/19 Rx furosemide 40 mg tablet 40 mg PO DAILY PRN #90 tab 09/25/18 01/10/19 Rx losartan 50 mg tablet 50 mg PO DAILY #90 tab 09/25/18 01/10/19 Rx estradiol 1 mg tablet 1 mg PO DAILY #30 tab 10/01/18 01/10/19 Rx omeprazole 40 mg capsule,delayed 40 mg PO HS #90 cap 10/07/18 01/10/19 Rx release trazodone 100 mg tablet 200 mg PO HSP PRN #180 tab 10/07/18 01/10/19 Rx fluticasone propionate 50 2 spray INTRANASAL DAILY #16 g 10/23/18 01/10/19 Rx mcg/actuation nasal spray,suspension Tizanidine HCl [Tizanidine HCl 4 mg PO BID 11/09/18 01/10/19 History 2mg] albuterol sulfate HFA 90 2 inh INHALATION TID PRN #18 g 11/19/18 01/10/19 Rx mcg/actuation aerosol inhaler gabapentin 800 mg tablet 800 mg PO QID #120 tab 11/19/18 01/10/19 Rx Phenylephrine HCl/Prometh HCl 5 ml PO Q4HP PRN #120 ml 01/02/19 01/10/19 Rx [Phenergan VC Plain 5mL UDC] predniSONE [Prednisone 10mg Tab 0 mg PO DIRECTED 01/10/19 01/11/19 History Dose-Pack] Benzonatate [Tessalon Perle 100mg 100 mg PO BIDP PRN 01/11/19 01/11/19 History Cap] Spironolactone [Aldactone 25mg 50 mg PO DAILY #30 tablet 01/12/19 Rx Tab] Prescriptions/Medication Reconciliation: New Spironolactone [Aldactone 25mg Tab] 50 mg PO DAILY #30 tablet Continue dicyclomine 10 mg capsule 10 mg PO QIDP PRN PRN Reason: IBS montelukast 10 mg tablet 10 mg PO HS 30 Days #30 tab budesonide-formoterol HFA 80 mcg-4.5 mcg/actuation aerosol inhaler 2 puff INHALATION BID furosemide 40 mg tablet 40 mg PO DAILY PRN #90 tab PRN Reason: fluid losartan 50 mg tablet 50 mg PO DAILY #90 tab estradiol 1 mg tablet 1 mg PO DAILY #30 tab trazodone 100 mg tablet 200 mg PO HSP PRN #180 tab PRN Reason: Insomnia fluticasone propionate 50 mcg/actuation nasal spray,suspension 2 spray INTRANASAL DAILY #16 g albuterol sulfate HFA 90 mcg/actuation aerosol inhaler 2 inh INHALATION TID PRN #18 g PRN Reason: Shortness Of Breath gabapentin 800 mg tablet 800 mg PO QID #120 tab levothyroxine 75 mcg tablet 75 mcg PO DAILY #30 tab omeprazole 40 mg capsule,delayed release 40 mg PO HS #90 cap Spironolactone [Aldactone 50mg Tab] 50 mg PO DAILY Potassium Chloride [Micro-K 10mEq cap] 10 meq PO DAILY Metoprolol Succinate 25 mg PO DAILY Hyoscyamine Sulfate 0.125 mg SL DAILYP PRN PRN Reason: IBS Benzonatate [Tessalon Perle 100mg Cap] 100 mg PO BIDP PRN PRN Reason: cough Tizanidine HCl [Tizanidine HCl 2mg] 4 mg PO BID Phenylephrine HCl/Prometh HCl [Phenergan VC Plain 5mL UDC] 5 ml PO Q4HP PRN #120 ml PRN Reason: Cough predniSONE [Prednisone 10mg Tab Dose-Pack] 0 mg PO DIRECTED
== END 2019-01-12 14:35 | disposition home or self-care (01) ==
LOC: ER 13:21 → 2ND 15:38 → INTOOBSV 16:34 → 2ND 16:35
PROVIDERS: ADMIT Internal Medicine Adolescent Medicine; ATTEND Emergency Medicine
CPT/HCPCS: 36415; 71020; 71046; 80048; 83880; 84484; 85007; 85025; 85378; 93005; 93306; 94640; 94761; 96374; 96375; 99284; G0378; J2405

== ENCOUNTER 2019-01-16 14:55 | Outpatient (CLI) | payer BC, SELFPAY ==
[2019-01-16 15:40] VITALS: BP 123/54; PULSE 54; RESP 18; TEMP 36.2; O2SAT 100
[2019-01-16 16:05] VITALS: BP 123/45; PULSE 56; RESP 18
== END 2019-01-16 16:20 | disposition home or self-care (01) ==
LOC: INF 15:03
PROVIDERS: Visit Provider Internal Medicine Medical Oncology
DX: D64.9 Anemia, unspecified (principal)
CPT/HCPCS: 96365; J1439

== ENCOUNTER 2019-01-23 14:34 | Outpatient (CLI) | payer BC, SELFPAY ==
[2019-01-23 14:36] VITALS: BP 133/65; PULSE 73; TEMP 36.1; O2SAT 100; BMI 40.5
[2019-01-23 15:15] VITALS: BP 103/54; PULSE 56; TEMP 36.7; O2SAT 95
== END 2019-01-23 15:20 | disposition home or self-care (01) ==
LOC: INF 14:34
PROVIDERS: Visit Provider Internal Medicine Medical Oncology
DX: D64.9 Anemia, unspecified (principal)
CPT/HCPCS: 96365; J1439

== ENCOUNTER → 2019-04-06 17:37 | Outpatient (CLI) | payer BC, SELFPAY ==
[2019-04-06 18:14] LABS: Basophils % 0.4 % (0.1-2.0); Eosinophils # 0.3 K/mm3 (0.0-0.4); Eosinophils % 4.8 % (0.1-12.0); Hematocrit 39.9 % (37.0-47.0); Hemoglobin 12.7 g/dL (12.2-16.2); Lymphocytes # 1.6 K/mm3 (0.7-4.5); Lymphocytes % 29.1 % (10-50); Mean Corpuscular HGB Conc 31.9 g/dL (31.8-35.4); Mean Corpuscular Hemoglobin 32.6 pg (27.0-31.2); Mean Corpuscular Volume 102.2 fl (81-99); Monocytes # 0.2 K/mm3 (0.1-1.0); Monocytes % 4.3 % (1.7-9.3); Neutrophils # 3.4 K/mm3 (1.8-7.8); Neutrophils % 61.4 % (37.0-80.0); Platelet Count 305 K/mm3 (142-424); Red Blood Count 3.91 M/mm3 (4.20-5.40); Red Cell Distribution Width 13.8 % (11.5-17.5); White Blood Count 5.6 K/mm3 (4.8-10.8)
[2019-04-06 19:20] LABS: Alanine Aminotransferase 28 U/L (12-78); Alkaline Phosphatase 71 U/L (46-116); Aspartate Amino Transferase 21 U/L (15-37); Bilirubin,Total 0.3 mg/dL (0.2-1.0); Blood Urea Nitrogen 0 mg/dL (7-18); Carbon Dioxide 22 mmol/L (21.0-32.0); Ferritin 278 ng/mL (8-388); Glucose 158 mg/dL (74-106); Total Protein,Serum 6.3 gm/dL (6.4-8.2)
[2019-04-06 19:48] LABS: Albumin Level 3.4 gm/dL (3.4-5.0); Albumin/Globulin Ratio 1.2 (1.1-1.8); Calcium 8.9 mg/dL (8.5-10.1); Creatinine,Serum 1.01 mg/dL (0.55-1.02); Estimated Glomerular Filt Rate 56 ml/min (>60); GFR (African American) 68 ML/MIN (>60); Globulin 2.9 gm/dl (1.3-3.2)
[2019-04-06 20:05] LABS: Chloride 106 mmol/L (98-107); Sodium 141 mmol/L (136-145)
[2019-04-08 08:15] LABS: Iron 58 ug/dL (27-159); UIBC 207 ug/dL (131-425)
[2019-04-08 14:48] LABS: Iron Saturation 22 % (15-55)
== END ==
PROVIDERS: Visit Provider Internal Medicine Medical Oncology
DX: D64.9 Anemia, unspecified (principal)
CPT/HCPCS: 36415; 80053; 82728; 83540; 83550; 85025

== ENCOUNTER 2019-07-29 15:43 | Inpatient (IN) ==
--- NOTE | 2019-07-29 16:03 | Emergency Department Note ---
ED Disposition Clinical Impression: NSTEMI (non-ST elevated myocardial infarction) Acute exacerbation of CHF (congestive heart failure) Qualifiers: Heart failure type: systolic Qualified Code(s): I50.23 - Acute on chronic systolic (congestive) heart failure Disposition: Admitted As Inpatient Condition on Discharge: Fair Referrals: Zeke Chairez MD [Primary Care Provider] - 3 days - Critical Care Critical Care Time: No Attestation: On 07/29/19, the high probability of a clinically significant, sudden or life threatening deterioration of the following system(s) required my full and direct attention, intervention and personal management. The time I documented below is in addition to time spent performing reported procedures but includes the following listed in this critical care notation. Medical Decision Making - Medical Records Medical records reviewed: Yes: I reviewed the patient's medical records. - Adolph Inquiry Pt receiving controlled substance: No Vital Signs: 07/29/19 15:44 07/29/19 15:46 07/29/19 16:00 Temperature 98.2 F Temperature Source Oral Pulse Rate 70 Pulse Rate [Left Radial] 87 Respiratory Rate 26 H Blood Pressure [Right Arm] 113/68 Blood Pressure Mean [Right Arm] 83 Blood Pressure Source [Right Arm] Automatic Cuff Blood Pressure Position [Right Arm] Sitting 02 Sat by Pulse Oximetry 75 L 93 L Oxygen Delivery Method Room Air Nasal Cannula Oxygen Flow Rate (LPM) 4 07/29/19 16:43 Temperature Temperature Source Pulse Rate Pulse Rate [Left Radial] 63 Respiratory Rate Blood Pressure [Right Arm] 122/74 Blood Pressure Mean [Right Arm] 90 Blood Pressure Source [Right Arm] Automatic Cuff Blood Pressure Position [Right Arm] Sitting 02 Sat by Pulse Oximetry 99 Oxygen Delivery Method Nasal Cannula Oxygen Flow Rate (LPM) 2 - Lab Data Lab Results 07/29/19 16:00: WBC 16.8 H, RBC 3.59 L, Hgb 11.7 L, Hct 37.7, MCV 104.9 H, MCH 32.7 H, MCHC 31.1 L, RDW 13.4, Plt Count 278, MPV 10.2, Neut % (Auto) 82.4 H, Lymph % (Auto) 12.7, [place] % (Auto) 2.6, Eos % (Auto) 2.0, Baso % (Auto) 0.2, Neut # (Auto) 13.8 H, Lymph # (Auto) 2.1, [place] # (Auto) 0.5, Eos # (Auto) 0.3, Baso # (Auto) 0.0, Total Counted 100, Neutrophils % (Manual) 80 H, Lymphocytes % (Manual) 19, Monocytes % (Manual) 1 L, Platelet Estimate Normal, Anisocytosis 1+, Macrocytosis 1+ 07/29/19 16:00: Sodium 139, Potassium 3.5, Chloride 105, Carbon Dioxide 20 L, Anion Gap 17.5 H, BUN 22 H, Creatinine 1.73 H, Estimated Creat Clear 59, Estimated GFR 30 L, Est GFR ( Amer) 37 L, Glucose 129 H, Calcium 9.4, Total Bilirubin 1.6 H, AST 277 H, ALT 247 H, Alkaline Phosphatase 110, Troponin I 0.98 H, Total Protein 6.9, Albumin 2.9 L, Globulin 4.0 H, Albumin/Globulin Ratio 0.7 L, Lipase 7 L 07/29/19 16:00: D-Dimer 2020 H* Result diagrams: 07/29/19 16:00 07/29/19 16:00 Orders (Tests/Meds): ED MEDICATIONS Discontinued Medications Generic Name Dose Route Start Last Admin Trade Name Freq PRN Reason Stop Dose Admin Albuterol/Ipratropium 3 ml 07/29/19 16:00 07/29/19 16:00 Duoneb 3ml Neb IH 07/29/19 16:01 3 ml ONCE ONE Administration Aspirin 324 mg 07/29/19 16:47 07/29/19 16:52 Aspirin 81mg Chewable Tablet PO 07/29/19 16:48 324 mg ONCE ONE Administration ORDERS Category Date Time Status BNP [B-Type Natriuretic Peptide] Stat Lab 07/29/19 16:00 Received VQ Scan [NM pul vent and perfuse] Stat Nuc Med 07/29/19 16:49 Ordered - Radiology Data #1 Image(s): Chest Image Reviewed: Yes I reviewed the patient's radiology results Worsening congestive heart failure - ECG Data Tracing #1 I reviewed this ECG and interpreted as documented below: EKG shows sinus rhythm with a rate of 85. No acute ST segment elevation or depression. No hyperacute T waves. Normal intervals. ECG initial impression date: 07/29/19 ECG initial impression time: 15:41 Medical Decision Narrative: Patient with worsening congestive heart failure and acute CHF exacerbation. Leukocytosis likely secondary to this and reactive in nature. She is afebrile and denies any feelings of illness, unlikely to be related to underlying pneumonia. Chest X-ray shows worsening pulmonary edema. No antibiotics given at this time. She does have an elevated troponin which could be secondary to her acute CHF exacerbation. Her EKG does not show any signs of acute ischemia. PE would be another possibility, however her creatinine is 1.7 so she will need a VQ scan when available. Her blood pressure cannot tolerate nitro drip to aid in diuresis, so I have requested BiPAP at this time. She is given aspirin 324 mg in the event that this is related to coronary artery disease. However, her last cath 2 years ago showed only mild disease. I discussed this case with Dr. Chairez who agrees to admit the patient and I also discussed this case with Dr. Gore who has no further recommendations at this time. General Adult HPI - General Chief complaint: Shortness of Breath/Dyspnea Stated complaint: sob Time Seen by Provider: 07/29/19 16:00 Mode of Arrival: Ambulatory Limitations: No Limitations Description of Symptoms (Recalled from ER Triage Doc. by RN): to ed per pvt car with c/o sob, chest tightness starting lastnight. pt states used inhalers x 2 today with no relief. pt denies fever, chills, nausea, vomiting. pt alert, speaking in full sentences - History of Present Illness HPI narrative: This is a 58-year-old female with a past medical history significant for hypertension, COPD, pulmonary hypertension, systolic heart failure who presents to the emergency department for evaluation of left upper chest pain that is pressure-like in nature, nonradiating and constant. It was intermittent yesterday, constant today. It is associated with shortness of breath. Exertion makes the symptoms worse. Pain is 8/10 in intensity. No vomiting. She has not had any recent fevers or cough. She tried using her home nebulizer treatment with no relief of symptoms. No known history of stentable CAD. She sees Dr. Gore who states that her chest pain, which she has had on several different occasions, is likely secondary to her systolic heart failure according to the patient. She states that this feels like her previous episodes of heart failure. No known history of DVT or PE. Last cardiac cath was in 2017 with only mild disease. - Related Data Home Medications Medication Instructions Recorded Confirmed dicyclomine 10 mg capsule 10 mg PO QIDP PRN 10/16/17 06/09/19 Potassium Chloride [Micro-K 10mEq 10 meq PO DAILY 01/11/18 06/09/19 cap] Hyoscyamine Sulfate 0.125 mg SL DAILYP PRN 01/31/18 06/09/19 budesonide-formoterol HFA 80 2 puff INHALATION BID 08/25/18 06/09/19 mcg-4.5 mcg/actuation aerosol inhaler montelukast 10 mg tablet 10 mg PO HS 30 Days #30 tab 08/25/18 06/09/19 Metoprolol Tartrate [Lopressor 25 mg PO BID 02/18/19 06/09/19 25mg tablet] Famotidine [Acid Tick Eradicator] 20 mg PO DAILY 05/03/19 06/09/19 Trazodone HCl See Rx Instructions .ROUTE .COMPLEX 05/03/19 06/09/19 Previous Rx's Medication Instructions Recorded furosemide 40 mg tablet 40 mg PO DAILY PRN #90 tab 09/25/18 losartan 50 mg tablet 50 mg PO DAILY #90 tab 09/25/18 fluticasone propionate 50 2 spray INTRANASAL DAILY #16 g 10/23/18 mcg/actuation nasal spray,suspension albuterol sulfate HFA 90 2 inh INHALATION TID PRN #18 g 11/19/18 mcg/actuation aerosol inhaler spironolactone 50 mg tablet 50 mg PO DAILY #90 tab 03/12/19 Hydrocod/Acet 5/325 mg [[place] 1 tab PO Q6HP PRN #8 tab 05/04/19 5/325mg tablet] omeprazole 40 mg capsule,delayed 40 mg PO DAILY #90 cap 05/22/19 release tizanidine 4 mg tablet See Rx Instructions .ROUTE 05/25/19 .COMPLEX #60 tablet gabapentin 800 mg tablet 800 mg PO QID #120 tab 06/09/19 naltrexone 8 mg-bupropion 90 mg See Rx Instructions .ROUTE 06/09/19 tablet,extended release .COMPLEX #70 tab levothyroxine 75 mcg tablet See Rx Instructions .ROUTE 06/18/19 .COMPLEX #90 tab metoprolol tartrate 25 mg tablet See Rx Instructions .ROUTE 06/18/19 .COMPLEX #60 tablet Allergies Allergy/AdvReac Type Severity Reaction Status Date / Time Cephalosporins Allergy RASH Verified 06/09/19 09:37 erythromycin base Allergy Hives Verified 06/09/19 09:37 minocycline Allergy RASH Verified 06/09/19 09:37 penicillin G Allergy Hives Verified 06/09/19 09:37 Sulfa (Sulfonamide Allergy RASH Verified 06/09/19 09:37 Antibiotics) [facility] History - Hepatitis A Screen Drug use history?: No High risk sexual behaviors?: No History of sexually transmitted infection?: No Currently employed?: No Childcare worker?: No Do you have indoor plumbing?: Yes Do you have electricity?: Yes Attestation statement:: This patient has been screened for Hepatitis A risk factors. I have reviewed the patient's past medical history: Yes Medical History: Reports:: Anxiety, Atherosclerotic Heart Disease, Congestive Heart Failure, Chronic Obstructive Pulmonary Disease (COPD), Coronary Artery Disease, Depression, Gastroesophageal Reflux Disease(GERD), Hypertension, Lung Disease Denies:: Cancer, Diabetes Mellitus Type 1, Diabetes Mellitus Type 2, Internal Pacemaker, MRSA, Seizures Other Medical History: Reports: Anemia, Arthritis, Fibromyalgia, Hypothyroidism, Thyroid Disease, Other Comment: SLEEP APNEA Laterality Cases: Bilateral: Tonsillectomy Other Surgeries: Yes: No Previous Surgery, Angioplasty, Cardiac Catheterization, Cholecystectomy, Colonoscopy, Dilation and Curettage, Hysterectomy-Total, Other. No: Pacemaker Amputation: No Fractures: No Comment: 2 CYSTS REMOVED FROM RIGHT SHOULDER - Social History Smoking Status: Former smoker # Packs/Day (cigarettes): 1 #Yrs smoked (if former smoker): 30 Alcohol Intake: never Alcohol Intake Frequency:: holidays/special occasions only Substance Use Type: denies use Occupational Status: employed Housing: house Household Members: family - Psychiatric History Pschychiatric History:: Reports:: Anxiety, Depression Family Hx:: Anemia, Bleeding Disorder, Cancer, Coronary Artery Disease, Hyperlipidemia, Hypertension, Stroke, Thyroid Disorder ROS Obtained: Yes All systems reviewed & no additional complaints Physical Exam - General General appearance: alert, in no apparent distress - Eye Eye exam: Present: normal appearance, PERRL - ENT ENT exam: Present: normal exam, mucous membranes moist - Neck Neck exam: Present: normal inspection, trachea midline - Chest Chest inspection: Present: normal inspection, symmetric chest wall rise. Absent: tenderness - Respiratory Respiratory exam: Present: normal lung sounds bilaterally, other (Tachypnea). Absent: respiratory distress - Cardiovascular Cardiovascular exam: Present: regular rate, normal rhythm. Absent: JVD - Abdominal Exam Abdominal exam: Present: soft, normal bowel sounds. Absent: distention, tenderness, guarding - Neurological Exam Neurological exam: Present: alert, oriented X3, normal gait - Psychiatric Psychiatric exam: Present: normal affect, normal mood - Skin Skin exam: Present: warm, dry, normal color
[2019-07-29 16:22] LABS: Basophils % 0.2 % (0.1-2.0); Eosinophils # 0.3 K/mm3 (0.0-0.4); Hematocrit 37.7 % (37.0-47.0); Hemoglobin 11.7 g/dL (12.2-16.2); Lymphocytes # 2.1 K/mm3 (0.7-4.5); Lymphocytes % 12.7 % (10-50); Mean Corpuscular HGB Conc 31.1 g/dL (31.8-35.4); Mean Corpuscular Volume 104.9 fl (81-99); Mean Platelet Volume 10.2 fl (7.4-10.4); Monocytes # 0.5 K/mm3 (0.1-1.0); Monocytes % 2.6 % (1.7-9.3); Neutrophils # 13.8 K/mm3 (1.8-7.8); Neutrophils % 82.4 % (37.0-80.0); Platelet Count 278 K/mm3 (142-424); Red Blood Count 3.59 M/mm3 (4.20-5.40); Red Cell Distribution Width 13.4 % (11.5-17.5); White Blood Count 16.8 K/mm3 (4.8-10.8)
[2019-07-29 16:30] LABS: Anisocytosis 1+; Lymphocytes % 19 % (10-50); Macrocytosis 1+; Monocytes % 1 % (2-9); Neutrophils % 80 % (42-76); Total Cells Counted 100
[2019-07-29 16:43] LABS: Albumin Level 2.9 gm/dL (3.4-5.0); Albumin/Globulin Ratio 0.7 (1.1-1.8); Anion Gap 17.5 mEq/L (5-15); Bilirubin,Total 1.6 mg/dL (0.2-1.0); Calcium 9.4 mg/dL (8.5-10.1); Total Protein,Serum 6.9 gm/dL (6.4-8.2)
--- NOTE | 2019-07-29 21:17 | History & Physical Report ---
*Admission Date: 07/29/19 *Chief complaint: sob *History of present illness: pt with inc sob and had chest pressure and [facility] with worsening congestive heart failure and acute CHF exacerbation. Leukocytosis likely secondary to this and reactive in nature. She is afebrile and denies any feelings of illness, unlikely to be related to underlying pneumonia. Chest X- ray shows worsening pulmonary edema. No antibiotics given at this time. She does have an elevated troponin which could be secondary to her acute CHF exacerbation. Her EKG does not show any signs of acute ischemia. PE would be another possibility, however her creatinine is 1.7 so she will need a VQ scan when available. Her blood pressure cannot tolerate nitro drip to aid in diuresis, so I have requested BiPAP at this time. She is given aspirin 324 mg in the event that this is related to coronary artery disease. However, her last cath 2 years ago showed only mild disease. . his is a 58-year-old female with a past medical history significant for hypertension, COPD, pulmonary hypertension, systolic heart failure who presents to the emergency department for evaluation of left upper chest pain that is pressure-like in nature, nonradiating and constant. It was intermittent yesterday, constant today. It is associated with shortness of breath. Exertion makes the symptoms worse. Pain is 8/10 in intensity. No vomiting. She has not had any recent fevers or cough. She tried using her home nebulizer treatment with no relief of symptoms. No known history of stentable CAD. She sees Dr. Gore who states that her chest pain, which she has had on several different occasions, is likely secondary to her systolic heart failure according to the patient. She states that this feels like her previous episodes of heart failure. No known history of DVT or PE. Last cardiac cath was in 2017 with only mild disease. pt was admitted for treatment and card consult [facility] History I have reviewed the patient's past medical history: Yes Medical History: Reports:: Anxiety, Atherosclerotic Heart Disease, Congestive Heart Failure, Chronic Obstructive Pulmonary Disease (COPD), Coronary Artery Disease, Depression, Gastroesophageal Reflux Disease(GERD), Hypertension, Lung Disease Denies:: Cancer, Diabetes Mellitus Type 1, Diabetes Mellitus Type 2, Internal Pacemaker, MRSA, Seizures *Have you ever received a pneumonia vaccine?: Yes *Have you received a flu vaccine this season?: No Other Medical History: Reports: Anemia, Arthritis, Fibromyalgia, Hypothyroidism, Thyroid Disease, Other Laterality Cases: Bilateral: Tonsillectomy Other Surgeries: Yes: No Previous Surgery, Angioplasty, Cardiac Catheterization, Cholecystectomy, Colonoscopy, Dilation and Curettage, Hysterectomy-Total, Other. No: Pacemaker Amputation: No Fractures: No - *Social History Educational Level: Completed College Smoking Status: Former smoker Tobacco Type: cigarettes # Packs/Day (cigarettes): 1 #Yrs smoked (if former smoker): 30 Alcohol Intake: current Alcohol Intake Frequency:: holidays/special occasions only Substance Use Type: denies use *Occupational Status:: employed Housing: house Household Members: family *Travel in the last 8 weeks: None - Psychiatric History Pschychiatric History:: Reports:: Anxiety, Depression Family Hx:: Anemia, Bleeding Disorder, Cancer, Coronary Artery Disease, Hyperlipidemia, Hypertension, Stroke, Thyroid Disorder Review of Systems - Review of Systems Review of systems:: pertinent systems reviewed and negative unless documented below - Constitutional Denies headache(s) - Eyes Denies change in vision - ENT Reports headache(s), Denies throat swelling - *Cardiovascular Reports chest pain at rest, Reports chest pain with activity, Reports shortness of breath, Reports shortness of breath with activity - *Respiratory Denies cough - *Gastrointestinal Denies abdominal pain, Denies vomiting - *Genitourinary Denies blood in urine, Denies pelvic pain - *Musculoskeletal Denies joint pain, Denies neck pain - Integumentary/Breasts Denies rash - *Neurologic Denies seizure-like activity - Psychiatric Denies behavioral changes Meds Home Medications Medication Instructions Recorded Confirmed Type dicyclomine 10 mg capsule 10 mg PO QIDP PRN 10/16/17 07/29/19 History Potassium Chloride [Micro-K 10mEq 10 meq PO DAILY 01/11/18 07/29/19 History cap] Hyoscyamine Sulfate 0.125 mg SL DAILYP PRN 01/31/18 07/29/19 History budesonide-formoterol HFA 80 2 puff INHALATION BID 08/25/18 07/29/19 History mcg-4.5 mcg/actuation aerosol inhaler montelukast 10 mg tablet 10 mg PO HS 30 Days #30 tab 08/25/18 07/29/19 History furosemide 40 mg tablet 40 mg PO DAILY PRN #90 tab 09/25/18 07/29/19 Rx losartan 50 mg tablet 50 mg PO DAILY #90 tab 09/25/18 07/29/19 Rx fluticasone propionate 50 2 spray INTRANASAL DAILY #16 g 10/23/18 07/29/19 Rx mcg/actuation nasal spray,suspension albuterol sulfate HFA 90 2 inh INHALATION TID PRN #18 g 11/19/18 07/29/19 Rx mcg/actuation aerosol inhaler Metoprolol Tartrate [Lopressor 25 mg PO BID 02/18/19 07/29/19 History 25mg tablet] spironolactone 50 mg tablet 50 mg PO DAILY #90 tab 03/12/19 07/29/19 Rx Famotidine [Acid Gut Snatcher] 20 mg PO DAILY 05/03/19 07/29/19 History Trazodone HCl See Rx Instructions .ROUTE .COMPLEX 05/03/19 07/29/19 History omeprazole 40 mg capsule,delayed 40 mg PO DAILY #90 cap 05/22/19 07/29/19 Rx release tizanidine 4 mg tablet See Rx Instructions .ROUTE 05/25/19 07/29/19 Rx .COMPLEX #60 tablet gabapentin 800 mg tablet 800 mg PO QID #120 tab 06/09/19 07/29/19 Rx levothyroxine 75 mcg tablet See Rx Instructions .ROUTE 06/18/19 07/29/19 Rx .COMPLEX #90 tab Allergies Allergy/AdvReac Type Severity Reaction Status Date / Time Cephalosporins Allergy RASH Verified 06/09/19 09:37 erythromycin base Allergy Hives Verified 06/09/19 09:37 minocycline Allergy RASH Verified 06/09/19 09:37 penicillin G Allergy Hives Verified 06/09/19 09:37 Sulfa (Sulfonamide Allergy RASH Verified 06/09/19 09:37 Antibiotics) Exam Vital signs and Labs for Last 24 Hours: Temp Pulse Resp BP Pulse Ox 98.0 F 62 18 140/77 94 L 07/29/19 19:31 07/29/19 19:31 07/29/19 19:31 07/29/19 19:31 07/29/19 19:55 Laboratory Results - last 24 hr 07/29/19 16:00: WBC 16.8 H, RBC 3.59 L, Hgb 11.7 L, Hct 37.7, MCV 104.9 H, MCH 32.7 H, MCHC 31.1 L, RDW 13.4, Plt Count 278, MPV 10.2, Neut % (Auto) 82.4 H, Lymph % (Auto) 12.7, [place] % (Auto) 2.6, Eos % (Auto) 2.0, Baso % (Auto) 0.2, Neut # (Auto) 13.8 H, Lymph # (Auto) 2.1, [place] # (Auto) 0.5, Eos # (Auto) 0.3, Baso # (Auto) 0.0, Total Counted 100, Neutrophils % (Manual) 80 H, Lymphocytes % (Manual) 19, Monocytes % (Manual) 1 L, Platelet Estimate Normal, Anisocytosis 1+, Macrocytosis 1+ 07/29/19 16:00: Sodium 139, Potassium 3.5, Chloride 105, Carbon Dioxide 20 L, Anion Gap 17.5 H, BUN 22 H, Creatinine 1.73 H, Estimated Creat Clear 59, Estimated GFR 30 L, Est GFR ( Amer) 37 L, Glucose 129 H, Calcium 9.4, Total Bilirubin 1.6 H, AST 277 H, ALT 247 H, Alkaline Phosphatase 110, Troponin I 0.98 H, Total Protein 6.9, Albumin 2.9 L, Globulin 4.0 H, Albumin/Globulin Ratio 0.7 L, Lipase 7 L 07/29/19 16:00: D-Dimer 2020 H* 07/29/19 16:00: B-Natriuretic Peptide 1280 H I & O for Last 24 hours: Intake & Output 07/27/19 07/28/19 07/29/19 07/30/19 11:59 11:59 11:59 11:59 Weight 230 lb 4 oz - Constitutional no acute distress, obese - *Routine HEENT Exam Head: Present: normocephalic Eye: Present: EOMI, PERRL ENT: Present: mucous membranes dry - *Routine Neck Exam Absent: JVD - *Routine Respiratory Exam Present: decreased breath sounds, distant breath sounds - *Routine Cardiovascular Exam Present: RRR, murmur, S4 - *Routine Abdominal Exam Present: soft - *Routine Extremities Exam Present: edema. Absent: tenderness - *Routine Skin Exam Present: intact - *Routine Neurological Exam Present: alert, oriented X3, CN II-XII intact - Routine Psychiatric Exam Present: normal affect Assessment and Plan (1) Acute exacerbation of CHF (congestive heart failure) Current visit: Yes Status: Acute Qualifiers: Heart failure type: systolic Qualified Code(s): I50.23 - Acute on chronic systolic (congestive) heart failure Category: Medical Code(s): I50.9 - Heart failure, unspecified (2) Angina at rest Current visit: No Status: Acute Category: Medical Code(s): I20.8 - Other forms of angina pectoris (3) Obesity Current visit: Yes Status: Acute Qualifiers: Obesity type: due to excess calories Obesity classification: adult class 3 (BMI >= 40) Serious obesity comorbidity presence: with serious comorbidity Body mass index: BMI 40.0-44.9 Qualified Code(s): E66.01 - Morbid (severe) obesity due to excess calories; Z68.41 - Body mass index (BMI) 40.0-44.9, adult Category: Medical Code(s): E66.9 - Obesity, unspecified (4) NSTEMI (non-ST elevated myocardial infarction) Current visit: Yes Status: Acute Category: Medical Code(s): I21.4 - Non-ST elevation (NSTEMI) myocardial infarction (5) Renal insufficiency Current visit: Yes Status: Acute Category: Medical Code(s): N28.9 - Disorder of kidney and ureter, unspecified (6) Elevated d-dimer Current visit: Yes Status: Acute Category: Medical Code(s): R79.89 - Other specified abnormal findings of blood chemistry
[2019-07-30 07:17] LABS: Anion Gap 11.1 mEq/L (5-15); Calcium 8.8 mg/dL (8.5-10.1)
--- NOTE | 2019-07-30 07:31 | Pharmacy Consult Notes ---
[facility] Pharmacy VTE Monitoring - Patient Demographics Admission date: 07/29/19 Report Date: 07/30/19 Time: 07:31 Allergies/Adverse Reactions: Patient Allergies Cephalosporins Allergy (Verified 06/09/19 09:37) RASH erythromycin base Allergy (Verified 06/09/19 09:37) Hives minocycline Allergy (Verified 06/09/19 09:37) RASH penicillin G Allergy (Verified 06/09/19 09:37) Hives Sulfa (Sulfonamide Antibiotics) Allergy (Verified 06/09/19 09:37) RASH Height: 1.63 m Weight: 105.8 kg Patient Problems: Current Active Problems Acute exacerbation of CHF (congestive heart failure) (Acute) NSTEMI (non-ST elevated myocardial infarction) (Acute) Obesity (Acute) Renal insufficiency (Acute) Elevated d-dimer (Acute) - VTE Risk Labs: VTE Related Lab Results Hgb 11.7 g/dL (12.2-16.2) L 07/29/19 16:00 Hct 37.7 % (37.0-47.0) 07/29/19 16:00 Plt Count 278 K/mm3 (142-424) 07/29/19 16:00 BUN 22 mg/dL (7-18) H 07/29/19 16:00 Creatinine 1.73 mg/dL (0.55-1.02) H 07/29/19 16:00 Estimated Creat Clear 59 mL/min (50-200) 07/29/19 16:00 Was VTE Risk Assessment Performed: Yes VTE Score: 9 VTE Risk Level: Moderate Risk - Prophylaxis VTE Prophylaxis Ordered?: Yes Types of VTE Prophylaxis: TEDS Knee High Location of Applied Device: Bilateral Lower Extremeties - VTE Diagnosis Confirmed Treatment or plan recommended: Continue Current Treatment
[2019-07-30 07:52] LABS: Basophils % 0.3 % (0.1-2.0); Eosinophils # 0.3 K/mm3 (0.0-0.4); Eosinophils % 2.8 % (0.1-12.0); Hematocrit 33.6 % (37.0-47.0); Hemoglobin 10.6 g/dL (12.2-16.2); Lymphocytes # 1.8 K/mm3 (0.7-4.5); Lymphocytes % 15.9 % (10-50); Mean Corpuscular HGB Conc 31.5 g/dL (31.8-35.4); Mean Corpuscular Volume 102.6 fl (81-99); Mean Platelet Volume 9.7 fl (7.4-10.4); Monocytes # 0.4 K/mm3 (0.1-1.0); Monocytes % 3.7 % (1.7-9.3); Neutrophils # 8.7 K/mm3 (1.8-7.8); Neutrophils % 77.3 % (37.0-80.0); Platelet Count 248 K/mm3 (142-424); Red Blood Count 3.27 M/mm3 (4.20-5.40); Red Cell Distribution Width 13.4 % (11.5-17.5); White Blood Count 11.2 K/mm3 (4.8-10.8)
--- NOTE | 2019-07-30 08:07 | Consult Report ---
History of Present Illness Consult date: 07/30/19 Chief complaint: chest pain, SOA Additional Medical History:: 1. Tobacco use since age 25, 1 ppd at least A. COPD 2. IBS, diarrhea predominant, followed by GI 3. Chronic pancreatitis, previous workup by GI 4. HTN, treated for 5 yrs A. Echo, 12/2018, preliminary results show normal LVEF with mild MR/TR. 5. Status post cholecystectomy, hysterectomy due to endometriosis and pelvic inflammatory disease 6. Chronic back pain with chronic pain medication 7. Hypothyroidism 8. Congestive heart failure, 05/2017 A. Right and left heart catheterization, 06/12/17, mild nonocclusive coronary artery disease. Mild pulmonary hypertension. No evidence of intra- cardiopulmonary shunt. Congestive heart failure felt secondary to diastolic dysfunction with improvement after 6 L diuresis overnight 9. NSTEMI, 06/2019, with CHF despite aggressive diuresis and pre-renal state. History of present illness: 58-year-old white female with history of diastolic dysfunction and mild, nonocclusive coronary disease by cardiac cath in 2016 presented to the emergency department for chest pressure and shortness of breath started yesterday morning. Work-up in the ER included chest x-ray showing evidence of congestive heart failure, BNP of 1280, elevated d-dimer greater than 2000 and elevated troponin. Patient's renal function indicated prerenal status and she was not a candidate for CT to rule out PE. VQ scan is ordered for this morning. Renal function has improved overnight. Patient continues to have some shortness of breath which improved after 1 hour of BiPAP therapy last evening. She denies any chest press ure this a.m. EKG is sinus without acute ST segment changes. Cardiology consulted for evaluation recommendations. [facility] History Medical History: Reports:: Anxiety, Atherosclerotic Heart Disease, Congestive Heart Failure, Chronic Obstructive Pulmonary Disease (COPD), Coronary Artery Disease, Depression, Gastroesophageal Reflux Disease(GERD), Hypertension, Lung Disease Denies:: Cancer, Diabetes Mellitus Type 1, Diabetes Mellitus Type 2, Internal Pacemaker, MRSA, Seizures *Have you ever received a pneumonia vaccine?: Yes *Have you received a flu vaccine this season?: No Other Medical History: Reports: Anemia, Arthritis, Fibromyalgia, Hypothyroidism, Thyroid Disease, Other Laterality Cases: Bilateral: Tonsillectomy Other Surgeries: Yes: No Previous Surgery, Angioplasty, Cardiac Catheterization, Cholecystectomy, Colonoscopy, Dilation and Curettage, Hysterectomy-Total, Other. No: Pacemaker Amputation: No Fractures: No - *Social History Educational Level: Completed College Smoking Status: Former smoker Tobacco Type: cigarettes # Packs/Day (cigarettes): 1 #Yrs smoked (if former smoker): 30 Alcohol Intake: current Alcohol Intake Frequency:: holidays/special occasions only Substance Use Type: denies use *Occupational Status:: employed Housing: house Household Members: family *Travel in the last 8 weeks: None - Psychiatric History Pschychiatric History:: Reports:: Anxiety, Depression Family Hx:: Anemia, Bleeding Disorder, Cancer, Coronary Artery Disease, Hyperlipidemia, Hypertension, Stroke, Thyroid Disorder Meds Home Medications Medication Instructions Recorded Confirmed Type dicyclomine 10 mg capsule 10 mg PO QIDP PRN 10/16/17 07/29/19 History Potassium Chloride [Micro-K 10mEq 10 meq PO DAILY 01/11/18 07/29/19 History cap] Hyoscyamine Sulfate 0.125 mg SL DAILYP PRN 01/31/18 07/29/19 History budesonide-formoterol HFA 80 2 puff INHALATION BID 08/25/18 07/29/19 History mcg-4.5 mcg/actuation aerosol inhaler montelukast 10 mg tablet 10 mg PO HS 30 Days #30 tab 08/25/18 07/29/19 History furosemide 40 mg tablet 40 mg PO DAILY PRN #90 tab 09/25/18 07/29/19 Rx losartan 50 mg tablet 50 mg PO DAILY #90 tab 09/25/18 07/29/19 Rx fluticasone propionate 50 2 spray INTRANASAL DAILY #16 g 10/23/18 07/29/19 Rx mcg/actuation nasal spray,suspension albuterol sulfate HFA 90 2 inh INHALATION TID PRN #18 g 11/19/18 07/29/19 Rx mcg/actuation aerosol inhaler Metoprolol Tartrate [Lopressor 25 mg PO BID 02/18/19 07/29/19 History 25mg tablet] spironolactone 50 mg tablet 50 mg PO DAILY #90 tab 03/12/19 07/29/19 Rx Famotidine [Acid [employer]] 20 mg PO DAILY 05/03/19 07/29/19 History Trazodone HCl 200 mg PO HS 05/03/19 07/30/19 History omeprazole 40 mg capsule,delayed 40 mg PO DAILY #90 cap 05/22/19 07/29/19 Rx release gabapentin 800 mg tablet 800 mg PO QID #120 tab 06/09/19 07/29/19 Rx Levothyroxine Sodium 75 mcg PO DAILY 07/30/19 07/30/19 History [Levothyroxine 75mcg (0.075mg) Tab] Tizanidine HCl [Zanaflex 4mg 4 mg PO BIDP PRN 07/30/19 07/30/19 History tab] Allergies Allergy/AdvReac Type Severity Reaction Status Date / Time Cephalosporins Allergy RASH Verified 06/09/19 09:37 erythromycin base Allergy Hives Verified 06/09/19 09:37 minocycline Allergy RASH Verified 06/09/19 09:37 penicillin G Allergy Hives Verified 06/09/19 09:37 Sulfa (Sulfonamide Allergy RASH Verified 06/09/19 09:37 Antibiotics) Review of Systems - *Cardiovascular Reports chest pain, Reports shortness of breath, Reports shortness of breath with activity - *Respiratory Reports shortness of breath, Reports shortness of breath with activity - *Gastrointestinal Denies abdominal pain, Denies nausea, Denies vomiting - *Genitourinary Denies blood in urine - *Musculoskeletal Denies joint pain, Denies back pain - *Neurologic Reports headache(s), Denies behavioral changes, Denies seizure-like activity Exam Vital signs and Labs for Last 24 Hours: Temp Pulse Resp BP Pulse Ox 98.5 F 64 18 135/79 93 L 07/30/19 04:00 07/30/19 04:00 07/30/19 04:00 07/30/19 04:00 07/30/19 04:00 Laboratory Results - last 24 hr 07/29/19 16:00: WBC 16.8 H, RBC 3.59 L, Hgb 11.7 L, Hct 37.7, MCV 104.9 H, MCH 32.7 H, MCHC 31.1 L, RDW 13.4, Plt Count 278, MPV 10.2, Neut % (Auto) 82.4 H, Lymph % (Auto) 12.7, [place] % (Auto) 2.6, Eos % (Auto) 2.0, Baso % (Auto) 0.2, Neut # (Auto) 13.8 H, Lymph # (Auto) 2.1, [place] # (Auto) 0.5, Eos # (Auto) 0.3, Baso # (Auto) 0.0, Total Counted 100, Neutrophils % (Manual) 80 H, Lymphocytes % (Manual) 19, Monocytes % (Manual) 1 L, Platelet Estimate Normal, Anisocytosis 1+, Macrocytosis 1+ 07/29/19 16:00: Sodium 139, Potassium 3.5, Chloride 105, Carbon Dioxide 20 L, Anion Gap 17.5 H, BUN 22 H, Creatinine 1.73 H, Estimated Creat Clear 59, Estimated GFR 30 L, Est GFR ( Amer) 37 L, Glucose 129 H, Calcium 9.4, Total Bilirubin 1.6 H, AST 277 H, ALT 247 H, Alkaline Phosphatase 110, Troponin I 0.98 H, Total Protein 6.9, Albumin 2.9 L, Globulin 4.0 H, Albumin/Globulin Ratio 0.7 L, Lipase 7 L 07/29/19 16:00: D-Dimer 2020 H* 07/29/19 16:00: B-Natriuretic Peptide 1280 H 07/30/19 07:05: WBC 11.2 H D, RBC 3.27 L, Hgb 10.6 L, Hct 33.6 L, MCV 102.6 H, MCH 32.4 H, MCHC 31.5 L, RDW 13.4, Plt Count 248, MPV 9.7, Neut % (Auto) 77.3, Lymph % (Auto) 15.9, [place] % (Auto) 3.7, Eos % (Auto) 2.8, Baso % (Auto) 0.3, Neut # (Auto) 8.7 H, Lymph # (Auto) 1.8, [place] # (Auto) 0.4, Eos # (Auto) 0.3, Baso # (Auto) 0.0 07/30/19 07:05: Sodium 139, Potassium 3.1 L, Chloride 106, Carbon Dioxide 25 D, Anion Gap 11.1, BUN 19 H, Creatinine 1.13 H D, Estimated Creat Clear 91, Estimated GFR 49 L, Est GFR ( Amer) 60 D, Glucose 88 D, Calcium 8.8 I & O for Last 24 hours: Intake & Output 07/27/19 07/28/19 07/29/19 07/30/19 11:59 11:59 11:59 11:59 Intake Total 240 / 240 Output Total 500 / 500 Balance -260 / -260 Weight 233 lb 4 oz - *Routine HEENT Exam Head: Present: normocephalic Eye: Present: EOMI, PERRL ENT: Present: mucous membranes moist - *Routine Neck Exam Present: supple. Absent: JVD, carotid bruit - *Routine Respiratory Exam Present: decreased breath sounds, rhonchi, wheezes. Absent: accessory muscle use, rales - *Routine Cardiovascular Exam Present: RRR. Absent: murmur, gallop, rubs - *Routine Abdominal Exam Present: soft. Absent: tenderness, distended, guarding - *Routine Extremities Exam Absent: edema, calf tenderness - *Routine Neurological Exam Present: alert, oriented X3, moving all extremities Assessment and Plan (1) Acute exacerbation of CHF (congestive heart failure) Current visit: Yes Status: Acute Qualifiers: Heart failure type: systolic Qualified Code(s): I50.23 - Acute on chronic systolic (congestive) heart failure Category: Medical Code(s): I50.9 - Heart failure, unspecified (2) Angina at rest Current visit: No Status: Acute Category: Medical Code(s): I20.8 - Other forms of angina pectoris (3) Obesity Current visit: Yes Status: Acute Qualifiers: Obesity type: due to excess calories Obesity classification: adult class 3 (BMI >= 40) Serious obesity comorbidity presence: with serious comorbidity Body mass index: BMI 40.0-44.9 Qualified Code(s): E66.01 - Morbid (severe) obesity due to excess calories; Z68.41 - Body mass index (BMI) 40.0-44.9, adult Category: Medical Code(s): E66.9 - Obesity, unspecified (4) NSTEMI (non-ST elevated myocardial infarction) Current visit: Yes Status: Acute Category: Medical Code(s): I21.4 - Non-ST elevation (NSTEMI) myocardial infarction (5) Renal insufficiency Current visit: Yes Status: Acute Category: Medical Code(s): N28.9 - D isorder of kidney and ureter, unspecified (6) Elevated d-dimer Current visit: Yes Status: Acute Category: Medical Code(s): R79.89 - Other specified abnormal findings of blood chemistry - Assessment and plan all Dx Assessment and Plan for all problems:: 1. Chest pain with elevated troponin and diastolic dysfunction with congestive heart failure despite aggressive diuretic therapy consistent with high risk non- ST elevation [place]. Plan to proceed with left heart catheterization today. 2. Elevated d-dimer, recommend Lovenox injection this a.m. with plans for CT Angio after cardiac cath. Will discontinue order for VQ scan. 3. Headache, defer to Dr. Chairez for further therapy. Patient relates history of migraines and pseudotumor approximately 13 years ago. 4. COPD 5. Hypertension, controlled 6. Hypokalemia, will replace
--- NOTE | 2019-07-30 08:42 | Progress Note ---
Internal Medicine - PN: Subj *Date: 07/30/19 *Time: 08:39 Interval history: Patient is complaining of chest pain, denies shortness of breath Exam Vital signs and Labs for Last 24 Hours: Temp Pulse Resp BP Pulse Ox 98.5 F 64 18 135/79 93 L 07/30/19 04:00 07/30/19 04:00 07/30/19 04:00 07/30/19 04:00 07/30/19 04:00 Laboratory Results - last 24 hr 07/29/19 16:00: WBC 16.8 H, RBC 3.59 L, Hgb 11.7 L, Hct 37.7, MCV 104.9 H, MCH 32.7 H, MCHC 31.1 L, RDW 13.4, Plt Count 278, MPV 10.2, Neut % (Auto) 82.4 H, Lymph % (Auto) 12.7, [place] % (Auto) 2.6, Eos % (Auto) 2.0, Baso % (Auto) 0.2, Neut # (Auto) 13.8 H, Lymph # (Auto) 2.1, [place] # (Auto) 0.5, Eos # (Auto) 0.3, Baso # (Auto) 0.0, Total Counted 100, Neutrophils % (Manual) 80 H, Lymphocytes % (Manual) 19, Monocytes % (Manual) 1 L, Platelet Estimate Normal, Anisocytosis 1+, Macrocytosis 1+ 07/29/19 16:00: Sodium 139, Potassium 3.5, Chloride 105, Carbon Dioxide 20 L, Anion Gap 17.5 H, BUN 22 H, Creatinine 1.73 H, Estimated Creat Clear 59, Estimated GFR 30 L, Est GFR ( Amer) 37 L, Glucose 129 H, Calcium 9.4, Total Bilirubin 1.6 H, AST 277 H, ALT 247 H, Alkaline Phosphatase 110, Troponin I 0.98 H, Total Protein 6.9, Albumin 2.9 L, Globulin 4.0 H, Albumin/Globulin Ratio 0.7 L, Lipase 7 L 07/29/19 16:00: D-Dimer 2020 H* 07/29/19 16:00: B-Natriuretic Peptide 1280 H 07/30/19 07:05: WBC 11.2 H D, RBC 3.27 L, Hgb 10.6 L, Hct 33.6 L, MCV 102.6 H, MCH 32.4 H, MCHC 31.5 L, RDW 13.4, Plt Count 248, MPV 9.7, Neut % (Auto) 77.3, Lymph % (Auto) 15.9, [place] % (Auto) 3.7, Eos % (Auto) 2.8, Baso % (Auto) 0.3, Neut # (Auto) 8.7 H, Lymph # (Auto) 1.8, [place] # (Auto) 0.4, Eos # (Auto) 0.3, Baso # (Auto) 0.0 07/30/19 07:05: Sodium 139, Potassium 3.1 L, Chloride 106, Carbon Dioxide 25 D, Anion Gap 11.1, BUN 19 H, Creatinine 1.13 H D, Estimated Creat Clear 91, Estimated GFR 49 L, Est GFR ( Amer) 60 D, Glucose 88 D, Calcium 8.8 I & O for Last 24 hours: Intake & Output 07/27/19 07/28/19 07/29/19 07/30/19 11:59 11:59 11:59 11:59 Intake Total 240 / 240 Output Total 500 / 500 Balance -260 / -260 Weight 233 lb 4 oz - Constitutional no acute distress - *Routine HEENT Exam Head: Present: normocephalic Eye: Present: PERRL ENT: Present: mucous membranes moist - *Routine Neck Exam Present: supple. Absent: lymphadenopathy - *Routine Respiratory Exam Present: CTA bilaterally - *Routine Cardiovascular Exam Present: RRR - *Routine Abdominal Exam Present: soft, normoactive bowel sounds. Absent: tenderness - *Routine Extremities Exam Present: full ROM, pulses intact, normal capillary refill. Absent: cyanosis, clubbing, edema - *Routine Skin Exam Present: intact, warm. Absent: rash - *Routine Neurological Exam Present: alert, oriented X3 - Routine Psychiatric Exam Present: normal affect Assessment and Plan (1) Acute exacerbation of CHF (congestive heart failure) Current visit: Yes Status: Acute Qualifiers: Qualified Code(s): I50.23 - Acute on chronic systolic (congestive) heart failure Category: Medical Code(s): I50.9 - Heart failure, unspecified (2) Angina at rest Current visit: No Status: Acute Category: Medical Code(s): I20.8 - Other forms of angina pectoris (3) Obesity Current visit: Yes Status: Acute Qualifiers: Qualified Code(s): E66.01 - Morbid (severe) obesity due to excess calories; Z68.41 - Body mass index (BMI) 40.0-44.9, adult Category: Medical Code(s): E66.9 - Obesity, unspecified (4) NSTEMI (non-ST elevated myocardial infarction) Current visit: Yes Status: Acute Category: Medical Code(s): I21.4 - Non-ST elevation (NSTEMI) myocardial infarction (5) Renal insufficiency Current visit: Yes Status: Acute Category: Medical Code(s): N28.9 - Disorder of kidney and ureter, unspecified (6) Elevated d-dimer Current visit: Yes Status: Acute Category: Medical Code(s): R79.89 - Other specified abnormal findings of blood chemistry - Assessment and plan all Dx Assessment and Plan for all problems:: Rounded with Dr. Chairez all orders per Mihaela
[2019-07-31 07:36] LABS: Anion Gap 10.2 mEq/L (5-15)
[2019-07-31 07:51] LABS: Basophils # 0.1 K/mm3 (0-0.2); Basophils % 1.1 % (0.1-2.0); Eosinophils # 0.2 K/mm3 (0.0-0.4); Eosinophils % 4.4 % (0.1-12.0); Hematocrit 33.4 % (37.0-47.0); Hemoglobin 10.6 g/dL (12.2-16.2); Lymphocytes # 1.5 K/mm3 (0.7-4.5); Lymphocytes % 29.9 % (10-50); Mean Corpuscular HGB Conc 31.7 g/dL (31.8-35.4); Mean Corpuscular Volume 103.2 fl (81-99); Mean Platelet Volume 10.2 fl (7.4-10.4); Monocytes # 0.3 K/mm3 (0.1-1.0); Monocytes % 6.4 % (1.7-9.3); Neutrophils # 2.8 K/mm3 (1.8-7.8); Neutrophils % 58.2 % (37.0-80.0); Platelet Count 243 K/mm3 (142-424); Red Blood Count 3.23 M/mm3 (4.20-5.40); Red Cell Distribution Width 13.2 % (11.5-17.5); White Blood Count 4.9 K/mm3 (4.8-10.8)
--- NOTE | 2019-07-31 09:21 | Progress Note ---
Subjective Date: 07/31/19 Time: 09:19 Principal diagnosis: SOA Interval history: 58-year-old white female in bed in no acute distress. States her breathing has improved and she is ready to go home. Exam Vital signs and Labs for Last 24 Hours: Temp Pulse Resp BP Pulse Ox 98.3 F 58 L 19 144/83 H 95 07/31/19 07:44 07/31/19 07:44 07/31/19 07:44 07/31/19 07:44 07/31/19 07:44 Laboratory Results - last 24 hr 07/31/19 06:47: WBC 4.9 D, RBC 3.23 L, Hgb 10.6 L, Hct 33.4 L, MCV 103.2 H, MCH 32.7 H, MCHC 31.7 L, RDW 13.2, Plt Count 243, MPV 10.2, Neut % (Auto) 58.2, Lymph % (Auto) 29.9, [place] % (Auto) 6.4, Eos % (Auto) 4.4, Baso % (Auto) 1.1, Neut # (Auto) 2.8, Lymph # (Auto) 1.5, [place] # (Auto) 0.3, Eos # (Auto) 0.2, Baso # (Auto) 0.1 07/31/19 06:47: Sodium 141, Potassium 3.2 L, Chloride 107, Carbon Dioxide 27, Anion Gap 10.2, BUN 14 D, Creatinine 0.96, Estimated Creat Clear 107, Estimated GFR 60, Est GFR ( Amer) 72, Glucose 82, Calcium 9.0 I & O for Last 24 hours: Intake & Output 07/28/19 07/29/19 07/30/19 07/31/19 11:59 11:59 11:59 11:59 Intake Total 240 / 240 360 / 360 Output Total 1800 / 1800 800 / 800 Balance -1560 / -1560 -440 / -440 Weight 233 lb 4 oz 233 lb 3.985 oz - *Routine Respiratory Exam Present: rhonchi. Absent: accessory muscle use, rales, wheezes - *Routine Cardiovascular Exam Present: RRR. Absent: murmur, gallop, rubs - *Routine Abdominal Exam Present: soft. Absent: tenderness, distended, guarding - *Routine Extremities Exam Absent: edema, calf tenderness - *Routine Neurological Exam Present: alert, oriented X3, moving all extremities Progress Note: A&P (1) Acute exacerbation of CHF (congestive heart failure) Status: Acute Current Visit: Yes (2) Angina at rest Status: Acute Current Visit: No (3) Obesity Status: Acute Current Visit: Yes (4) NSTEMI (non-ST elevated myocardial infarction) Status: Acute Current Visit: Yes (5) Renal insufficiency Status: Acute Current Visit: Yes (6) Elevated d-dimer Status: Acute Current Visit: Yes Assessment and Plan for All Diagnoses:: 1. No evidence of pulmonary embolus by CT of the chest. Mediastinal and hilar adenopathy follow-up per Dr. Chairez 2. Shortness of breath felt secondary to acute on chronic exacerbation of diastolic dysfunction. Improved with increase in diuretic therapy. 3. Hypokalemia, on replacement therapy 4. Okay from cardiology standpoint for discharge home. 5. Medication recommendations: Metoprolol 25 mg daily, losartan 50 mg daily, Lasix 40 mg daily, potassium 20 mEq twice daily, spironolactone 50 mg daily 6. Follow-up in our office in 1 week with a BMP
--- NOTE | 2019-07-31 11:53 | Discharge Summary ---
General - General Admission date:: 07/29/19 Discharge date: 07/31/19 HPI HPI: pt with inc sob and had chest pressure and presented to the ed -atient with worsening congestive heart failure and acute CHF exacerbation. Leukocytosis likely secondary to this and reactive in nature. She is afebrile and denies any feelings of illness, unlikely to be related to underlying pneumonia. Chest X- ray shows worsening pulmonary edema. No antibiotics given at this time. She does have an elevated troponin which could be secondary to her acute CHF exacerbation. Her EKG does not show any signs of acute ischemia. PE would be another possibility, however her creatinine is 1.7 so she will need a VQ scan when available. Her blood pressure cannot tolerate nitro drip to aid in diuresis, so I have requested BiPAP at this time. She is given aspirin 324 mg in the event that this is related to coronary artery disease. However, her last cath 2 years ago showed only mild disease. . his is a 58-year-old female with a past medical history significant for hyp ertension, COPD, pulmonary hypertension, systolic heart failure who presents to the emergency department for evaluation of left upper chest pain that is pressure-like in nature, nonradiating and constant. It was intermittent yesterday, constant today. It is associated with shortness of breath. Exertion makes the symptoms worse. Pain is 8/10 in intensity. No vomiting. She has not had any recent fevers or cough. She tried using her home nebulizer treatment with no relief of symptoms. No known history of stentable CAD. She sees Dr. Gore who states that her chest pain, which she has had on several different occasions, is likely secondary to her systolic heart failure according to the patient. She states that this feels like her previous episodes of heart failure. No known history of DVT or PE. Last cardiac cath was in 2017 with only mild disease. pt was admitted for treatment and card consult Hospital Course Hospital Course: pt was admitted and hydrated with improved renal function - pt with sob and occ chest pain and smith - she was seen by card -Tobacco use since age 25, 1 ppd at least A. COPD 2. IBS, diarrhea predominant, followed by GI 3. Chronic pancreatitis, previous workup by GI 4. HTN, treated for 5 yrs A. Echo, 12/2018, preliminary results show normal LVEF with mild MR/TR. 5. Status post cholecystectomy, hysterectomy due to endometriosis and pelvic inflammatory disease 6. Chronic back pain with chronic pain medication 7. Hypothyroidism 8. Congestive heart failure, 05/2017 A. Right and left heart catheterization, 06/12/17, mild nonocclusive coronary artery disease. Mild pulmonary hypertension. No evidence of intra- cardiopulmonary shunt. Congestive heart failure felt secondary to diastolic dysfunction with improvement after 6 L diuresis overnight 9. NSTEMI, 06/2019, with CHF despite aggressive diuresis and pre-renal state. History of present illness: 58-year-old white female with history of diastolic dysfunction and mild, nonocclusive coronary disease by cardiac cath in 2016 presented to the emergency department for chest pressure and shortness of breath started yesterday morning. Work-up in the ER included chest x-ray showing evidence of congestive heart failure, BNP of 1280, elevated d-dimer greater than 2000 and elevated troponin. Patient's renal function indicated prerenal status and she was not a candidate for CT to rule out PE. VQ scan is ordered for this morning. Renal function has improved overnight. Patient continues to have some shortness of breath which improved after 1 hour of BiPAP therapy last evening. She denies any chest pressure this a.m. EKG is sinus without acute ST segment changes. Cardiology consulted for evaluation recommendations. Chest pain with elevated troponin and diastolic dysfunction with congestive heart failure despite aggressive diuretic therapy consistent with high risk non- ST elevation WI. Plan to proceed with left heart catheterization today. 2. Elevated d-dimer, recommend Lovenox injection this a.m. with plans for CT Angio after cardiac cath. Will discontinue order for VQ scan. 3. Headache, defer to Dr. Chairez for further therapy. Patient relates history of migraines and pseudotumor approximately 13 years ago. 4. COPD 5. Hypertension, controlled 6. Hypokalemia, will replace pt had card cath-ne percent lidocaine used to anesthetize the right anterior aspect of the wrist. The right radial artery was accessed via the Seldinger technique. A 6 [place] sheath was placed in the right radial artery. 2.5 mg of verapamil, 800 mcg of nitroglycerin, 1mg Lidocaine and 5000 U Heparin were given through the arterial sheath. The trap catheter was also used to perform left heart catheterization, left ventriculogram and selective coronary angiogram. At the end of the procedure the sheath was removed good hemostasis was achieved using Traclet band, patient was transferred to the postop holding area in stable condition. ANGIOGRAPHIC RESULTS The left main artery Normal The left anterior descending artery Is proximally normal and has mid vessel 10 to 20% stenosis The circumflex artery Nondominant yet still large and normal The right coronary artery Dominant with proximal concentric 20 to 30% stenosis mid vessel long 10 to 20% stenoses The ARIAS ventriculogram reveals Normal 60% The left ventricular end-diastolic pressure Moderately elevated at 20 to 25 mmHg IMPRESSION Mild [id number] coronary artery disease Normal ejection fraction Elevated LVEDP consistent with diastolic dysfunction PLAN 1. Medical management for severe diastolic dysfunction 2. Liberalize diuretic pt had elevated d dimer and has venous doppler and ct for pul emboli -here are scattered mildly prominent mediastinal lymph nodes. There is adenopathy in the subcarinal region extending along the right infrahilar area. Normal heart size. No evidence of pulmonary embolus aortic aneurysm or aortic dissection. There is diffuse ground-glass opacity throughout both lungs. There is trace right pleural effusion. Small nodes are present in the axilla. No acute bony findings are evident. IMPRESSION: 1. No evidence of pulmonary embolus. 2. Mild mediastinal and right hilar adenopathy. The nodes could be neoplastic or reactive. This has progressed since the older CT scan of 02/20/2018. Follow-up recommended to confirm resolution. Does the patient have a history of primary carcinoma or lymphoma? 3. Diffuse ground-glass opacification of the lungs on both sides. This can be seen with pneumonia or pulmonary edema. There is trace right-sided effusion. pt feels better and will be d/c at this time with close op follow up Objective Vital signs: Temp Pulse Resp BP Pulse Ox 98.4 F 51 L 18 121/77 96 07/31/19 11:37 07/31/19 11:37 07/31/19 11:37 07/31/19 11:37 07/31/19 11:37 no acute distress, obese - *Routine HEENT Exam Head: Present: normocephalic Eye: Present: EOMI, PERRL ENT: Present: mucous membranes dry - *Routine Neck Exam Absent: JVD - *Routine Respiratory Exam Present: decreased breath sounds - *Routine Cardiovascular Exam Present: RRR, murmur, S4 - *Routine Abdominal Exam Present: soft, guarding - *Routine Extremities Exam Absent: calf tenderness - Routine Back/Spine/Pelvis Exam Back/Spine: Present: full ROM - *Routine Skin Exam Present: intact - *Routine Neurological Exam Present: alert, oriented X3, CN II-XII intact Results Labs on day of discharge: Labs from last 24 hours 07/31/19 07/31/19 06:47 06:47 WBC 4.9 D RBC 3.23 L Hgb 10.6 L Hct 33.4 L MCV 103.2 H MCH 32.7 H MCHC 31.7 L RDW 13.2 Plt Count 243 MPV 10.2 Neut % (Auto) 58.2 Lymph % (Auto) 29.9 Cecil % (Auto) 6.4 Eos % (Auto) 4.4 Baso % (Auto) 1.1 Neut # (Auto) 2.8 Lymph # (Auto) 1.5 Cecil # (Auto) 0.3 Eos # (Auto) 0.2 Baso # (Auto) 0.1 Sodium 141 Potassium 3.2 L Chloride 107 Carbon Dioxide 27 Anion Gap 10.2 BUN 14 D Creatinine 0.96 Estimated Creat Clear 107 Estimated GFR 60 Est GFR ( Amer) 72 Glucose 82 Calcium 9.0 DS: Diagnosis - Discharge Diagnosis (1) Acute exacerbation of CHF (congestive heart failure) Status: Acute (2) Angina at rest Status: Acute (3) Obesity Status: Acute (4) NSTEMI (non-ST elevated myocardial infarction) Status: Acute (5) Renal insufficiency Status: Acute (6) Elevated d-dimer Status: Acute (7) Obesity Status: Acute (8) Elevated left ventricular end-diastolic pressure (LVEDP) Status: Acute (9) Mediastinal adenopathy Status: Acute (10) Diastolic dysfunction with acute on chronic heart failure Status: Acute (11) Anemia Status: Acute (12) ELEANOR (acute kidney injury) Status: Resolved Discharge Plan - Patient Discharge Instructions ACTIVITY: Continue current activity DIET: continue same diet Patient Instructions: DI for Heart Attack, Heart Attack in Women, Heart Attack, Heart Failure, Cardiac Catheterization, Heart-Healthy Diet, DI for Heart Failure, DI for Angina, DI for Cardiac Catheterization, DI for Surgical Site Infection - Follow up Plan Disposition: Home, Self-Long Term Medications: Home Medications Medication Instructions Recorded Confirmed Type dicyclomine 10 mg capsule 10 mg PO QIDP PRN 10/16/17 07/29/19 History Hyoscyamine Sulfate 0.125 mg SL DAILYP PRN 01/31/18 07/29/19 History budesonide-formoterol HFA 80 2 puff INHALATION BID 08/25/18 07/29/19 History mcg-4.5 mcg/actuation aerosol inhaler montelukast 10 mg tablet 10 mg PO HS 30 Days #30 tab 08/25/18 07/29/19 History furosemide 40 mg tablet 40 mg PO DAILY PRN #90 tab 09/25/18 07/29/19 Rx losartan 50 mg tablet 50 mg PO DAILY #90 tab 09/25/18 07/29/19 Rx fluticasone propionate 50 2 spray INTRANASAL DAILY #16 g 10/23/18 07/29/19 Rx mcg/actuation nasal spray,suspension albuterol sulfate HFA 90 2 inh INHALATION TID PRN #18 g 11/19/18 07/29/19 Rx mcg/actuation aerosol inhaler spironolactone 50 mg tablet 50 mg PO DAILY #90 tab 03/12/19 07/29/19 Rx Famotidine [Acid Fueler] 20 mg PO DAILY 05/03/19 07/29/19 History Trazodone HCl 200 mg PO HSP PRN 05/03/19 07/30/19 History omeprazole 40 mg capsule,delayed 40 mg PO DAILY #90 cap 05/22/19 07/29/19 Rx release gabapentin 800 mg tablet 800 mg PO QID #120 tab 06/09/19 07/29/19 Rx Levothyroxine Sodium 75 mcg PO DAILY 07/30/19 07/30/19 History [Levothyroxine 75mcg (0.075mg) Tab] Tizanidine HCl [Zanaflex 4mg 4 mg PO BIDP PRN 07/30/19 07/30/19 History tab] Metoprolol Tartrate [Lopressor 25 mg PO DAILY #90 tab 07/31/19 Rx 25mg tablet] Potassium Chloride [Micro-K 10mEq 20 meq PO BID #60 capsule.er 07/31/19 Rx cap] Prescriptions/Medication Reconciliation: New Spironolactone [Aldactone 25mg Tab] 50 mg PO DAILY tablet Irbesartan [Avapro 75mg tablet] 75 mg PO DAILY tablet Irbesartan [Avapro 75mg tablet] 75 mg PO DAILY tablet Trazodone HCl [Desyrel 50mg tablet] 200 mg PO HSP PRN tablet PRN Reason: Sleep Potassium Chloride [Klor-con 20 mEq tablet] 20 meq PO BID tablet Furosemide [Lasix 40mg tablet] 40 mg PO DAILY tablet Gabapentin [Neurontin 400mg cap] 800 mg PO QID capsule Pantoprazole Sodium [Protonix 40mg tablet] 40 mg PO HS tablet. Montelukast Sodium [Singulair 10mg tablet] 10 mg PO HS tablet Levothyroxine Sodium [Synthroid 75mcg (0.075mg) tablet] 75 mcg PO DAILYDM tablet Hydrocod/Acet 5/325 mg [Casar 5/325mg tablet] 1 tab PO Q6HP PRN tablet PRN Reason: MODERATE PAIN Continued dicyclomine 10 mg capsule 10 mg PO QIDP PRN PRN Reason: IBS montelukast 10 mg tablet 10 mg PO HS 30 Days #30 tab budesonide-formoterol HFA 80 mcg-4.5 mcg/actuation aerosol inhaler 2 puff INHALATION BID furosemide 40 mg tablet 40 mg PO DAILY PRN #90 tab PRN Reason: fluid losartan 50 mg tablet 50 mg PO DAILY #90 tab fluticasone propionate 50 mcg/actuation nasal spray,suspension 2 spray INTRANASAL DAILY #16 g albuterol sulfate HFA 90 mcg/actuation aerosol inhaler 2 inh INHALATION TID PRN #18 g PRN Reason: Shortness Of Breath gabapentin 800 mg tablet 800 mg PO QID #120 tab spironolactone 50 mg tablet 50 mg PO DAILY #90 tab Hyoscyamine Sulfate 0.125 mg SL DAILYP PRN PRN Reason: IBS Trazodone HCl 200 mg PO HSP PRN PRN Reason: Insomnia Levothyroxine Sodium [Levothyroxine 75mcg (0.075mg) Tab] 75 mcg PO DAILY Famotidine [Acid Fueler] 20 mg PO DAILY Tizanidine HCl [Zanaflex 4mg tab] 4 mg PO BIDP PRN PRN Reason: Muscle Spasm Changed Metoprolol Tartrate [Lopressor 25mg tablet] 25 mg PO DAILY #90 tab Potassium Chloride [Micro-K 10mEq cap] 20 meq PO BID #60 capsule.er Discontinued omeprazole 40 mg capsule,delayed release 40 mg PO DAILY #90 cap - Problem Reconciliation Problems Reviewed?: Yes
--- NOTE | 2019-07-31 17:21 | Cardiology Report ---
APPROVED REPORT Bilateral Lower Extremity Venous Study for DVT. Intake Man: MICHEAL TorresT Indications Shortness of breath elevated d dimer Risk Factors Obesity Vein Imaging CFV (R): compressive, spontaneous, phasic, augmentation FEM (R): compressive, spontaneous, phasic, augmentation POP (R): compressive, spontaneous, phasic, augmentation PTV (R): Compressible GSV (R): Compressible Peroneals (R):Compressible GAS (R): Compressible CFV (L): compressive, spontaneous, phasic, augmentation FEM (L): compressive, spontaneous, phasic, augmentation POP (L): compressive, spontaneous, phasic, augmentation PTV (L): Compressible GSV (L): Compressible Peroneals (L):Compressible GAS (L): Compressible Findings No evidence of DVT seen in the bilateral lower extremities. No evidence of SVT seen in the bilateral lower extremities. Conclusion No evidence of DVT or superficial thrombophlebitis in the veins scanned of the right lower extremity. No evidence of DVT or superficial thrombophlebitis in the veins scanned of the left lower extremity. Electronically signed by : Paresh Li MD 07/31/2019 17:21:18
--- NOTE | 2019-08-01 11:36 | Electrocardiograph Report ---
APPROVED REPORT Exam: Resting ECG HR:85 bpm ECG Measurements Heart Rate 85 AXES SC 164 P 49 QRSd 90 QRS 81 QT 354 T-9 QTc 421 <Conclusion> Normal sinus rhythm NDST-T Changes Abnormal ECG Electronically signed by : Arden Saldivar, 08/01/2019 11:35:34
== END 2019-07-31 13:34 | disposition home or self-care (01) | DRG 280 ==
LOC: ER 15:43 → 2ND 17:10
PROVIDERS: ADMIT Emergency Medicine; ATTEND Emergency Medicine
CPT/HCPCS: 36415; 71010; 71045; 71275; 80048; 80053; 83690; 83880; 84484; 85007; 85025; 85378; 93005; 93458; 93970; 94761; 96374; 99152; 99284; C1725; C1769; J1644; Q9967

== ENCOUNTER → 2019-08-11 11:30 | Outpatient (CLI) | payer BC, SELFPAY ==
[2019-08-11 11:56] LABS: Basophils % 0.6 % (0.1-2.0); Eosinophils # 0.2 K/mm3 (0.0-0.4); Eosinophils % 3.8 % (0.1-12.0); Hematocrit 42.5 % (37.0-47.0); Lymphocytes # 1.5 K/mm3 (0.7-4.5); Lymphocytes % 23.3 % (10-50); Mean Corpuscular HGB Conc 30.5 g/dL (31.8-35.4); Mean Corpuscular Hemoglobin 32.6 pg (27.0-31.2); Mean Corpuscular Volume 106.8 fl (81-99); Mean Platelet Volume 8.8 fl (7.4-10.4); Monocytes # 0.2 K/mm3 (0.1-1.0); Monocytes % 3.3 % (1.7-9.3); Neutrophils # 4.4 K/mm3 (1.8-7.8); Platelet Count 275 K/mm3 (142-424); Red Blood Count 3.98 M/mm3 (4.20-5.40); Red Cell Distribution Width 13.5 % (11.5-17.5); White Blood Count 6.4 K/mm3 (4.8-10.8)
[2019-08-11 13:57] LABS: Alanine Aminotransferase 21 U/L (12-78); Albumin/Globulin Ratio 0.9 (1.1-1.8); Alkaline Phosphatase 68 U/L (46-116); Anion Gap 8.5 mEq/L (5-15); Aspartate Amino Transferase 15 U/L (15-37); Bilirubin,Total 0.2 mg/dL (0.2-1.0); Blood Urea Nitrogen 8 mg/dL (7-18); Calcium 8.9 mg/dL (8.5-10.1); Carbon Dioxide 31 mmol/L (21.0-32.0); Chloride 108 mmol/L (98-107); Creatinine,Serum 0.93 mg/dL (0.55-1.02); Estimated Glomerular Filt Rate 62 ml/min (>60); Ferritin 216 ng/mL (8-388); GFR (African American) 75 ML/MIN (>60); Globulin 3.3 gm/dl (1.3-3.2); Glucose 87 mg/dL (74-106); Potassium 4.5 mmoL/L (3.5-5.1); Sodium 143 mmol/L (136-145); Total Protein,Serum 6.3 gm/dL (6.4-8.2)
[2019-08-12 08:22] LABS: Iron 87 ug/dL (27-159); UIBC 173 ug/dL (131-425)
[2019-08-12 12:21] LABS: Iron Saturation 33 % (15-55)
== END ==
PROVIDERS: Visit Provider Internal Medicine Medical Oncology
DX: D64.9 Anemia, unspecified (principal)
CPT/HCPCS: 36415; 80053; 82728; 83540; 83550; 85025

== ENCOUNTER → 2019-08-14 10:28 | Outpatient (CLI) | payer BC, SELFPAY ==
[2019-08-14 10:47] LABS: Basophils # 0.1 K/mm3 (0-0.2); Basophils % 0.6 % (0.1-2.0); Eosinophils # 0.2 K/mm3 (0.0-0.4); Eosinophils % 3.1 % (0.1-12.0); Hematocrit 42.2 % (37.0-47.0); Hemoglobin 13.6 g/dL (12.2-16.2); Lymphocytes # 1.2 K/mm3 (0.7-4.5); Lymphocytes % 14.8 % (10-50); Mean Corpuscular HGB Conc 32.3 g/dL (31.8-35.4); Mean Corpuscular Hemoglobin 33.4 pg (27.0-31.2); Mean Corpuscular Volume 103.3 fl (81-99); Mean Platelet Volume 8.1 fl (7.4-10.4); Monocytes # 0.3 K/mm3 (0.1-1.0); Monocytes % 4.2 % (1.7-9.3); Neutrophils # 6.1 K/mm3 (1.8-7.8); Neutrophils % 77.3 % (37.0-80.0); Platelet Count 299 K/mm3 (142-424); Red Blood Count 4.08 M/mm3 (4.20-5.40); Red Cell Distribution Width 13.3 % (11.5-17.5); White Blood Count 7.9 K/mm3 (4.8-10.8)
[2019-08-15 18:13] LABS: Immunoglobulin M, Qn 345 mg/dL (26-217)
== END ==
PROVIDERS: Visit Provider Internal Medicine Medical Oncology
DX: D64.9 Anemia, unspecified (principal)
CPT/HCPCS: 36415; 82784; 85025

== ENCOUNTER 2019-08-30 17:32 | Inpatient (IN) ==
[2019-08-30 18:18] LABS: Microscopic, Urine URINE MICROSCOPIC (MICROSCOPIC)
[2019-08-30 18:21] LABS: Basophils % 0.1 % (0.1-2.0); Eosinophils # 0.1 K/mm3 (0.0-0.4); Eosinophils % 0.6 % (0.1-12.0); Hematocrit 41.5 % (37.0-47.0); Hemoglobin 12.9 g/dL (12.2-16.2); Lymphocytes # 1.6 K/mm3 (0.7-4.5); Lymphocytes % 7.9 % (10-50); Mean Corpuscular HGB Conc 31.1 g/dL (31.8-35.4); Mean Corpuscular Volume 101.5 fl (81-99); Mean Platelet Volume 8.8 fl (7.4-10.4); Monocytes # 0.6 K/mm3 (0.1-1.0); Monocytes % 3.1 % (1.7-9.3); Neutrophils # 17.8 K/mm3 (1.8-7.8); Neutrophils % 88.2 % (37.0-80.0); Platelet Count 325 K/mm3 (142-424); Red Blood Count 4.09 M/mm3 (4.20-5.40); Red Cell Distribution Width 12.9 % (11.5-17.5); White Blood Count 20.2 K/mm3 (4.8-10.8)
--- NOTE | 2019-08-30 18:22 | Emergency Department Note ---
ED Disposition Clinical Impression: Septic shock, Healthcare-associated pneumonia, Elevated troponin, Hypokalemia, Syncope and collapse Disposition: Admitted As Inpatient Condition on Discharge: Serious - Critical Care Critical Care Time: Yes Attestation: On 08/30/19, the high probability of a clinically significant, sudden or life threatening deterioration of the following system(s) required my full and direct attention, intervention and personal management. The time I documented below is in addition to time spent performing reported procedures but includes the following listed in this critical care notation. Total Critical Care Time: 50 Vital system(s) involved:: Circulatory Failure, Shock (Septic) My critical care processes included: Assessment & monitoring of V/S, Initial and Re-exams, Data Review/Interpretation, Coordinating Care, Medication Orders and management, Documentation Medical Decision Making - Adolph Inquiry Pt receiving controlled substance: No Vital Signs: 08/30/19 17:32 08/30/19 17:45 08/30/19 18:15 Temperature 98.0 F 98.0 F 98.0 F Temperature Source Oral Oral Oral Pulse Rate [Right Radial] 63 63 64 Respiratory Rate 18 18 18 Blood Pressure [Right Arm] 73/40 L 73/40 L 60/31 L Blood Pressure Mean [Right Arm] 51 51 40 Blood Pressure Source [Right Arm] Automatic Cuff Automatic Cuff Automatic Cuff Blood Pressure Position [Right Arm] Sitting Sitting Sitting 02 Sat by Pulse Oximetry 90 L 90 L 96 Oxygen Delivery Method Nasal Cannula Nasal Cannula Nasal Cannula Oxygen Flow Rate (LPM) 4 4 4 08/30/19 18:45 08/30/19 20:30 Temperature Temperature Source Pulse Rate [Right Radial] 60 69 Respiratory Rate 18 18 Blood Pressure [Right Arm] 78/49 L 94/44 L Blood Pressure Mean [Right Arm] 58 60 Blood Pressure Source [Right Arm] Automatic Cuff Automatic Cuff Blood Pressure Position [Right Arm] Sitting Sitting 02 Sat by Pulse Oximetry 89 L 89 L Oxygen Delivery Method Nasal Cannula Nasal Cannula Oxygen Flow Rate (LPM) 4 4 - Lab Data Lab Results 08/30/19 17:47: Urine Color Yellow, Urine Appearance Clear, Urine pH 6.0, Ur Specific [place] 1.025, Urine Protein Trace, Urine Glucose (UA) Negative, Urine Ketones Negative, Urine Blood Negative, Urine Nitrate Negative, Urine Bilirubin Negative, Urine Urobilinogen 0.2, Ur Leukocyte Esterase Trace, Urine RBC Occasional, Urine WBC 3-5, Ur Squamous Epith Cells 5-10, Urine Bacteria 1+, Urine Mucus 2+ 08/30/19 17:47: WBC 20.2 H*, RBC 4.09 L, Hgb 12.9, Hct 41.5, MCV 101.5 H, MCH 31.6 H, MCHC 31.1 L, RDW 12.9, Plt Count 325, MPV 8.8, Neut % (Auto) 88.2 H, Lymph % (Auto) 7.9 L, [place] % (Auto) 3.1, Eos % (Auto) 0.6, Baso % (Auto) 0.1, Neut # (Auto) 17.8 H, Lymph # (Auto) 1.6, [place] # (Auto) 0.6, Eos # (Auto) 0.1, Baso # (Auto) 0.0, Total Counted 100, Neutrophils % (Manual) 87 H, Band Neutrophils % 2.0, Lymphocytes % (Manual) 11, Platelet Estimate Normal, H ypochromasia 1+, Macrocytosis 1+ 08/30/19 17:47: Urine Opiates Screen Positive H, Urine Methadone Screen Negative, Ur Barbituates Screen Negative, Ur Phencyclidine Scrn Negative, Ur Amphetamines Screen Negative, U Benzodiazepines Scrn Negative, Urine Cocaine Screen Negative, U Marijuana (THC) Screen Negative 08/30/19 17:47: B-Natriuretic Peptide 564 H 08/30/19 18:30: Sodium 138, Potassium 3.0 L, Chloride 104, Carbon Dioxide 24, Anion Gap 13.0, BUN 17, Creatinine 1.50 H, Estimated Creat Clear 38, Estimated GFR 36 L, Est GFR ( Amer) 43 L, Glucose 128 H, Calcium 9.0, Total Bilirubin 0.5, AST 58 H, ALT 27, Alkaline Phosphatase 83, Troponin I 0.25 H, T otal Protein 5.9 L, Albumin 2.5 L, Globulin 3.4 H, Albumin/Globulin Ratio 0.7 L, Salicylates 5.5, Acetaminophen 6.7 L, Plasma/Serum Alcohol 0 08/30/19 19:07: Lactate 1.3 Result diagrams: 08/30/19 17:47 08/30/19 18:30 Orders (Tests/Meds): ED MEDICATIONS Generic Name Dose Route Start Last Admin Trade Name Freq PRN Reason Stop Dose Admin Aztreonam 2 gm/ Sodium 100 mls @ 100 mls/hr 08/30/19 19:00 Chloride IV 09/13/19 18:59 Q8H LEN Protocol Levofloxacin/Dextrose 750 mg in 150 mls @ 100 mls/hr 08/30/19 19:00 08/30/19 19:52 Levofloxacin 750mg/150ml Premix IV 09/13/19 18:59 100 mls/hr Q24H LEN Administration Protocol Vancomycin HCl 2,000 mg/ 250 mls @ 125 mls/hr 08/31/19 22:00 Sodium Chloride IV 09/14/19 21:59 Q12 LEN Vancomycin HCl 2,500 mg/ 250 mls @ 125 mls/hr 08/30/19 20:03 Sodium Chloride IV 08/30/19 22:02 ONCE ONE Miscellaneous 1 each 08/30/19 19:00 08/30/19 20:07 Vancomycin Consult Request NOTAPPLIC 08/31/19 06:48 1 each CONSULT [facility] Administration Naloxone HCl 2 mg 08/30/19 18:14 08/30/19 17:32 Narcan 2mg/2ml Syringe IV 09/29/19 18:13 2 mg ONCE PRN Administration Opioid Reversal Discontinued Medications Generic Name Dose Route Start Last Admin Trade Name Freq PRN Reason Stop Dose Admin Aspirin 324 mg 08/30/19 19:05 08/30/19 20:09 Aspirin 81mg Chewable Tablet PO 08/30/19 19:06 324 mg ONCE ONE Administration Sodium Chloride 3,810 mls @ 1,905 mls/hr 08/30/19 18:39 08/30/19 18:50 Sod Chlor 0.9% 1000ml Bag 30 ml/kg infuse over 2 hr (3810 ml) 08/30/19 20:38 1,905 mls/hr IV Administration .Q2H ONE Potassium Chloride 40 meq 08/30/19 19:06 08/30/19 20:09 Klor-Con 20meq Tablet PO 08/30/19 19:07 40 meq ONCE ONE Administration ORDERS Category Date Time Status Troponin I Q3H Lab 08/30/19 21:15 Ordered Troponin I Q3H Lab 08/31/19 00:15 Ordered Blood Culture Stat Micro 08/30/19 19:20 Received - Radiology Data #1 Image(s): Chest Image Reviewed: Yes I reviewed the patient's radiology image, Yes I have reviewed radiologist's interpretation FINDINGS: The patient is somewhat obese and this is a somewhat poor inspiration. There is a patchy ill-defined opacity in the right perihilar region and right lower lobe suggesting a developing pneumonic infiltrate. The right upper lung field and left lung kent are clear. There is mild to moderate generalized cardiomegaly however there is no pulmonary congestion and there is no pleural fluid. IMPRESSION: Probable right perihilar right lower lobe pneumonia Dictated by: Dr. Ruslan Lyn MD 08/30/2019 18:[address] Ruslan Lyn MD in [place] 08/30/2019 18:31 - ECG Data Tracing #1 EKG interpreted by Adria Gillis MD: Rhythm: sinus Rate: 66 [place]: normal Ectopy: none Conduction: normal ST Segment Changes: none T Wave Changes: Nonspecific Q Waves: none Prior electrocardiagrams reviewed. No change from prior tracings. - Physician Consults Physician Consulted: daniel Chairez Time: 20:05 Reason -: Admission Comment/Response: Agrees to admit the patient to the hospital. We discussed the patient's clinical information, including history, exam, laboratory and radiology results and ED course. Per hospital procedure, I will write temporary bridge inpatient orders on the patient. Specific orders requested by the [facility] physician: continue antibiotics, iv fluids - Tissue Perfus/Sepsis Re-Eval Sepsis Re-Evaluation Performed: Yes Date Performed: 08/30/19 Time Performed: 20:44 Medical Decision Narrative: recent CTA chest: IMPRESSION: 1. No evidence of pulmonary embolus. 2. Mild mediastinal and right hilar adenopathy. The nodes could be neoplastic or reactive. This has progressed since the older CT scan of 02/20/2018. Follow-up recommended to confirm resolution. Does the patient have a history of primary carcinoma or lymphoma? 3. Diffuse ground-glass opacification of the lungs on both sides. This can be seen with pneumonia or pulmonary edema. There is trace right-sided effusion. Dictated by: Paresh Li MD 07/31/2019 06:27 Electronically signed by Paresh Li MD in [place] 07/31/2019 06:27 recent C: ANGIOGRAPHIC RESULTS The left main artery Normal The left anterior descending artery Is proximally normal and has mid vessel 10 to 20% stenosis The circumflex artery Nondominant yet still large and normal The right coronary artery Dominant with proximal concentric 20 to 30% stenosis mid vessel long 10 to 20% stenoses The ARIAS ventriculogram reveals Normal 60% The left ventricular end-diastolic pressure Moderately elevated at 20 to 25 mmHg IMPRESSION Mild urf-iinr-mfeoyfea coronary artery disease Normal ejection fraction Elevated LVEDP consistent with diastolic dysfunction PLAN 1. Medical management for severe diastolic dysfunction 2. Liberalize diuretics Electronically signed by : Pool Gore, 07/30/2019 12:45:39 6:50 PM: Pharmacist contacted for antibiotic regimen given multiple allergies. Aztreonam, Levaquin, and vancomycin recommended. General Adult HPI - General Chief complaint: Altered Mental Status Stated complaint: AMS Time Seen by Provider: 08/30/19 18:20 Mode of Arrival: Wheelchair Limitations: No Limitations Description of Symptoms (Recalled from ER Triage Doc. by RN): PT HAD TO BE GOTTEN OUT OF FRIEND'S VEHICLE PER ED AND UTC STAFF. FRIEND REPORTS PT COME OVER TO HER HOUSE AND COLLAPSED BEHIND HER CAR. FRIEND REPORTS PT EVENTUALLY WAS ABLE TO CRAWL INTO THE VEHICLE FOR TRANSPORTATION TO THE ED. PT LETHARGIC WHEN STAFF HAD TO LIFT HER OUT OF THE CAR AND INTO THE WHEELCHAIR. PT ONLY MUMBLED ONCE IN THE ED AND ASKED QUESTIONS BY STAFF. AFTER ADMINISTRATION OF NARCAN PT WAS A&O X4. ONCE A&O PT REPORTS THAT SHE HAS BEEN EXPERIENCING DIZZINESS, LIGHTHEADED, SOA SINCE SATURDAY - History of Present Illness HPI narrative: Patient says that she is feeling lightheaded and dizzy today and passed out at a friend's house. Nursing staff reported that she was unresponsive and had to pu ll her out of her friend's car and they administered Narcan prior to my arrival and when I arrived she is awake and alert and speaking. However, she denies using any street drugs. She says that she is on Lortab for extracted teeth 6 days ago and only took 2 Lortab today. She denies using any other prescription pain relievers for any other sedating medications. She says that today she coughed up a large amount of green phlegm. She is currently denying any pain upon my arrival but developed chest pain during my interview. Denies leg pain or swelling. She does complain of shortness of breath. She denies fever. Denies abdominal pain, vomiting, or diarrhea. She was admitted to the hospital here about a month ago she says "for the same thing". - Related Data Home Medications Medication Instructions Recorded Confirmed dicyclomine 10 mg capsule 10 mg PO QIDP PRN 10/16/17 08/14/19 Hyoscyamine Sulfate 0.125 mg SL DAILYP PRN 01/31/18 08/14/19 budesonide-formoterol HFA 80 2 puff INHALATION BID 08/25/18 08/14/19 mcg-4.5 mcg/actuation aerosol inhaler montelukast 10 mg tablet 10 mg PO HS 30 Days #30 tab 08/25/18 08/14/19 Famotidine [Acid Sheriff Officer] 20 mg PO DAILY 05/03/19 08/14/19 Trazodone HCl 200 mg PO HSP PRN 05/03/19 08/14/19 Levothyroxine Sodium 75 mcg PO DAILY 07/30/19 08/14/19 [Levothyroxine 75mcg (0.075mg) Tab] Tizanidine HCl [Zanaflex 4mg 4 mg PO BIDP PRN 07/30/19 08/14/19 tab] Previous Rx's Medication Instructions Recorded losartan 50 mg tablet 50 mg PO DAILY #90 tab 09/25/18 fluticasone propionate 50 2 spray INTRANASAL DAILY #16 g 10/23/18 mcg/actuation nasal spray,suspension albuterol sulfate HFA 90 2 inh INHALATION TID PRN #18 g 11/19/18 mcg/actuation aerosol inhaler spironolactone 50 mg tablet 50 mg PO DAILY #90 tab 03/12/19 gabapentin 800 mg tablet 800 mg PO QID #120 tab 06/09/19 Furosemide [Furosemide 40MG tAB] 40 mg PO DAILY #30 tab 07/31/19 Metoprolol Tartrate [Lopressor 25 mg PO DAILY #90 tab 07/31/19 25mg tablet] Potassium Chloride [Micro-K 10mEq 20 meq PO BID #60 capsule.er 07/31/19 cap] Allergies Allergy/AdvReac Type Severity Reaction Status Date / Time Cephalosporins Allergy RASH Verified 08/14/19 11:00 erythromycin base Allergy Hives Verified 08/14/19 11:00 minocycline Allergy RASH Verified 08/14/19 11:00 penicillin G Allergy Hives Verified 08/14/19 11:00 Sulfa (Sulfonamide Allergy RASH Verified 08/14/19 11:00 Antibiotics) [facility] History - Hepatitis A Screen Drug use history?: No High risk sexual behaviors?: No History of sexually transmitted infection?: No Currently employed?: No Childcare worker?: No Do you have indoor plumbing?: Yes Do you have electricity?: Yes Attestation statement:: This patient has been screened for Hepatitis A risk factors. I have reviewed the patient's past medical history: Yes Medical History: Reports:: Anxiety, Atherosclerotic Heart Disease, Congestive Heart Failure, Chronic Obstructive Pulmonary Disease (COPD), Coronary Artery Disease, Depression, Gastroesophageal Reflux Disease(GERD), Hypertension, Lung Disease Denies:: Cancer, Diabetes Mellitus Type 1, Diabetes Mellitus Type 2, Internal Pacemaker, MRSA, Seizures Other Medical History: Reports: Anemia, Arthritis, Fibromyalgia, Hypothyroidism, Thyroid Disease, Other Comment: SLEEP APNEA Laterality Cases: Bilateral: Tonsillectomy Other Surgeries: Yes: No Previous Surgery, Angioplasty, Cardiac Catheterization, Cholecystectomy, Colonoscopy, Dilation and Curettage, Hysterectomy-Total, Other. No: Pacemaker Amputation: No Fractures: No Comment: 2 CYSTS REMOVED FROM RIGHT SHOULDER - Social History Smoking Status: Current every day smoker Tobacco Type: cigarettes # Packs/Day (cigarettes): 1 #Yrs smoked (if former smoker): 30 Alcohol Intake: never Alcohol Intake Frequency:: holidays/special occasions only Substance Use Type: denies use Occupational Status: employed Housing: house Household Members: family - Psychiatric History Pschychiatric History:: Reports:: Anxiety, Depression Family Hx:: Anemia, Bleeding Disorder, Cancer, Coronary Artery Disease, Hyperlipidemia, Hypertension, Stroke, Thyroid Disorder ROS Obtained: Yes All systems reviewed & no additional complaints - Constitutional Constitutional: Reports as per HPI, Denies fever(s) - ENT Ears, Nose, Mouth, and Throat: Reports as per HPI, Reports other (Recent dental extractions, no severe pain at present) - Cardiovascular Cardiovascular: Reports chest pain - Respiratory Respiratory: Yes dyspnea - Gastrointestinal Gastrointestingal: Denies: abdominal pain, diarrhea, vomiting Physical Exam - General General appearance: alert, in no apparent distress - Head Head exam: atraumatic, normocephalic - Eye Eye exam: Present: normal appearance, EOMI - ENT ENT exam: Present: mucous membranes moist - Neck Neck exam: Present: normal inspection, trachea midline - Chest Chest inspection: Present: normal inspection, symmetric chest wall rise - Respiratory Respiratory exam: Present: normal lung sounds bilaterally. Absent: respiratory distress - Cardiovascular Cardiovascular exam: Present: regular rate, normal rhythm, normal heart sounds - Abdominal Exam Abdominal exam: Present: soft, normal bowel sounds. Absent: distention, tenderness - Extremities Exam Extremities exam: Present: normal capillary refill, other (Normal pulses in extremities). Absent: pedal edema, calf tenderness - Neurological Exam Neurological exam: Present: alert, oriented X3, CN II-XII intact. Absent: motor sensory deficit - Psychiatric Psychiatric exam: Present: anxious - Skin Skin exam: Present: warm, dry
[2019-08-30 18:23] LABS: Appearance,Urine CLEAR (Clear); Bilirubin,Urine Negative (Negative); Blood, Urine Negative (Negative); Color,Urine YELLOW (Yellow); Glucose,Urine (UA) Negative (Negative); Ketones,Urine Negative (Negative); Leukocyte Esterase,Urine TRACE (Negative); Protein,Urine TRACE (Negative); Specific Gravity, Urine 1.025 (1.005-1.030); Urobilinogen,Urine 0.2 EU/dl (0.2)
[2019-08-30 18:29] LABS: Amphetamine/Metha Screen,Urine Negative ng/mL (<1000); Barbiturates Screen,Urine Negative ng/mL (<200); Benzodiazepines Screen,Urine Negative ng/mL (<200); Cannabinoid Screen,Urine Negative ng/mL (<50); Cocaine Screen,Urine Negative ng/mL (<300); Methadone Screen,Urine Negative ng/mL (<300); Opiate Screen,Urine Positive ng/mL (<300); Phencyclidine Screen,Urine Negative ng/mL (<25)
[2019-08-30 18:42] LABS: Bacteria,Urine 1+ /lpf; Mucus,Urine 2+ /lpf; RBC,Urine Occasional #/hpf (0-3)
[2019-08-30 18:57] LABS: Acetaminophen 6.7 ug/mL (10-30); Albumin Level 2.5 gm/dL (3.4-5.0); Albumin/Globulin Ratio 0.7 (1.1-1.8); Bilirubin,Total 0.5 mg/dL (0.2-1.0); Globulin 3.4 gm/dl (1.3-3.2); Salicylate 5.5 mg/dL (2.8-20.0); Total Protein,Serum 5.9 gm/dL (6.4-8.2)
[2019-08-30 18:59] LABS: Hypochromasia 1+; Lymphocytes % 11 % (10-50); Macrocytosis 1+; Neutrophils % 87 % (42-76); Total Cells Counted 100
[2019-08-31 06:31] LABS: Basophils % 0.1 % (0.1-2.0); Eosinophils # 0.3 K/mm3 (0.0-0.4); Eosinophils % 1.2 % (0.1-12.0); Hematocrit 35.3 % (37.0-47.0); Hemoglobin 11.7 g/dL (12.2-16.2); Lymphocytes # 1.4 K/mm3 (0.7-4.5); Lymphocytes % 6.4 % (10-50); Mean Corpuscular HGB Conc 33.2 g/dL (31.8-35.4); Mean Corpuscular Volume 98.9 fl (81-99); Monocytes # 1.3 K/mm3 (0.1-1.0); Monocytes % 5.8 % (1.7-9.3); Neutrophils # 18.8 K/mm3 (1.8-7.8); Neutrophils % 86.6 % (37.0-80.0); Platelet Count 215 K/mm3 (142-424); Red Blood Count 3.57 M/mm3 (4.20-5.40)
[2019-08-31 06:34] LABS: White Blood Count 22.2 K/mm3 (4.8-10.8)
[2019-08-31 06:51] LABS: Eosinophils % 1 % (0-3); Lymphocytes % 4 % (10-50); Monocytes % 3 % (2-9); Neutrophils % 92 % (42-76); RBC Morphology Normal; Total Cells Counted 100
[2019-08-31 07:02] LABS: Anion Gap 19.7 mEq/L (5-15); Calcium 8.6 mg/dL (8.5-10.1)
--- NOTE | 2019-08-31 07:10 | Pharmacy Consult Notes ---
[facility] Pharmacy VTE Monitoring - Patient Demographics Admission date: 08/30/19 Report Date: 08/31/19 Time: 07:10 Allergies/Adverse Reactions: Patient Allergies Cephalosporins Allergy (Verified 08/14/19 11:00) RASH erythromycin base Allergy (Verified 08/14/19 11:00) Hives minocycline Allergy (Verified 08/14/19 11:00) RASH penicillin G Allergy (Verified 08/14/19 11:00) Hives Sulfa (Sulfonamide Antibiotics) Allergy (Verified 08/14/19 11:00) RASH Height: 1.68 m Weight: 108.21 kg Patient Problems: Current Active Problems Hypokalemia (Acute) Septic shock (Acute) Healthcare-associated pneumonia (Acute) Syncope and collapse (Acute) Elevated troponin (Acute) - VTE Risk Labs: VTE Related Lab Results Hgb 11.7 g/dL (12.2-16.2) L 08/31/19 06:05 Hct 35.3 % (37.0-47.0) L 08/31/19 06:05 Plt Count 215 K/mm3 (142-424) D 08/31/19 06:05 BUN 17 mg/dL (7-18) 08/30/19 18:30 Creatinine 1.50 mg/dL (0.55-1.02) H 08/30/19 18:30 Estimated Creat Clear 38 mL/min (50-200) 08/30/19 18:30 VTE Score: 5 VTE Risk Level: Low Risk - Prophylaxis VTE Prophylaxis Ordered?: Yes Types of VTE Prophylaxis: TEDS Knee High Location of Applied Device: Bilateral Lower Extremeties - VTE Diagnosis Confirmed Treatment or plan recommended: Continue Current Treatment
--- NOTE | 2019-08-31 08:22 | Pharmacy Consult Notes ---
- Pharmacy Consult Date: 08/31/19 Time: 08:20 Referring provider: DR. PETERSON Reason for Consult:: VANCOMYCIN DOSING Allergies and ADEs:: Allergies Allergy/AdvReac Type Severity Reaction Status Date / Time Cephalosporins Allergy RASH Verified 08/14/19 11:00 erythromycin base Allergy Hives Verified 08/14/19 11:00 minocycline Allergy RASH Verified 08/14/19 11:00 penicillin G Allergy Hives Verified 08/14/19 11:00 Sulfa (Sulfonamide Allergy RASH Verified 08/14/19 11:00 Antibiotics) Home Medications:: Home Medications Medication Instructions Recorded Confirmed Type budesonide-formoterol HFA 80 2 puff INHALATION BID 08/25/18 08/31/19 History mcg-4.5 mcg/actuation aerosol inhaler montelukast 10 mg tablet 10 mg PO HS 30 Days #30 tab 08/25/18 08/31/19 History losartan 50 mg tablet 50 mg PO DAILY #90 tab 09/25/18 08/31/19 Rx fluticasone propionate 50 2 spray INTRANASAL DAILY #16 g 10/23/18 08/31/19 Rx mcg/actuation nasal spray,suspension albuterol sulfate HFA 90 2 inh INHALATION TID PRN #18 g 11/19/18 08/31/19 Rx mcg/actuation aerosol inhaler spironolactone 50 mg tablet 50 mg PO DAILY #90 tab 03/12/19 08/31/19 Rx Famotidine [Acid Product Assurance Engineer] 20 mg PO DAILY 05/03/19 08/31/19 History Trazodone HCl 200 mg PO HSP PRN 05/03/19 08/31/19 History gabapentin 800 mg tablet 800 mg PO QID #120 tab 06/09/19 08/31/19 Rx Levothyroxine Sodium 75 mcg PO DAILY 07/30/19 08/31/19 History [Levothyroxine 75mcg (0.075mg) Tab] Tizanidine HCl [Zanaflex 4mg 4 mg PO BIDP PRN 07/30/19 08/31/19 History tab] Metoprolol Tartrate [Lopressor 25 mg PO DAILY #90 tab 07/31/19 08/31/19 Rx 25mg tablet] Potassium Chloride [Micro-K 10mEq 20 meq PO BID #60 capsule.er 07/31/19 08/31/19 Rx cap] Clindamycin HCl [Clindamycin HCl 300 mg PO Q8 08/31/19 08/31/19 History 300mg Cap] Furosemide [Furosemide 40MG tAB] 40 mg PO DAILY 08/31/19 08/31/19 History Ibuprofen [Ibuprofen 600mg 600 mg PO QIDP PRN 08/31/19 08/31/19 History Tablet] Omeprazole 40 mg PO DAILY 08/31/19 08/31/19 History Height: 1.68 m Weight: 108.21 kg Laboratory Results:: Laboratory Results - last 24 hr 08/30/19 17:47: Urine Color Yellow, Urine Appearance Clear, Urine pH 6.0, Ur Specific [place] 1.025, Urine Protein Trace, Urine Glucose (UA) Negative, Urine Ketones Negative, Urine Blood Negative, Urine Nitrate Negative, Urine Bilirubin Negative, Urine Urobilinogen 0.2, Ur Leukocyte Esterase Trace, Urine RBC Occasional, Urine WBC 3-5, Ur Squamous Epith Cells 5-10, Urine Bacteria 1+, Urine Mucus 2+ 08/30/19 17:47: WBC 20.2 H*, RBC 4.09 L, Hgb 12.9, Hct 41.5, MCV 101.5 H, MCH 31.6 H, MCHC 31.1 L, RDW 12.9, Plt Count 325, MPV 8.8, Neut % (Auto) 88.2 H, Lymph % (Auto) 7.9 L, [place] % (Auto) 3.1, Eos % (Auto) 0.6, Baso % (Auto) 0.1, Neut # (Auto) 17.8 H, Lymph # (Auto) 1.6, [place] # (Auto) 0.6, Eos # (Auto) 0.1, Baso # (Auto) 0.0, Total Counted 100, Neutrophils % (Manual) 87 H, Band Neutrophils % 2.0, Lymphocytes % (Manual) 11, Platelet Estimate Normal, Hypochromasia 1+, Macrocytosis 1+ 08/30/19 17:47: Urine Opiates Screen Positive H, Urine Methadone Screen Negative, Ur Barbituates Screen Negative, Ur Phencyclidine Scrn Negative, Ur Amphetamines Screen Negative, U Benzodiazepines Scrn Negative, Urine Cocaine Screen Negative, U Marijuana (THC) Screen Negative 08/30/19 17:47: B-Natriuretic Peptide 564 H 08/30/19 18:30: Sodium 138, Potassium 3.0 L, Chloride 104, Carbon Dioxide 24, Anion Gap 13.0, BUN 17, Creatinine 1.50 H, Estimated Creat Clear 38, Estimated GFR 36 L, Est GFR ( Amer) 43 L, Glucose 128 H, Calcium 9.0, Total Bilirubin 0.5, AST 58 H, ALT 27, Alkaline Phosphatase 83, Troponin I 0.25 H, Total Protein 5.9 L, Albumin 2.5 L, Globulin 3.4 H, Albumin/Globulin Ratio 0.7 L , Salicylates 5.5, Acetaminophen 6.7 L, Plasma/Serum Alcohol 0 08/30/19 19:07: Lactate 1.3 08/30/19 21:10: Troponin I 0.23 H 08/31/19 00:20: Troponin I 0.21 H 08/31/19 04:09: POC Glucose 96 08/31/19 06:05: WBC 22.2 H*, RBC 3.57 L, Hgb 11.7 L, Hct 35.3 L, MCV 98.9, MCH 32.8 H, MCHC 33.2, RDW 13.0, Plt Count 215 D, MPV 10.0, Neut % (Auto) 86.6 H, Lymph % (Auto) 6.4 L, [place] % (Auto) 5.8, Eos % (Auto) 1.2, Baso % (Auto) 0.1, Neut # (Auto) 18.8 H, Lymph # (Auto) 1.4, [place] # (Auto) 1.3 H, Eos # (Auto) 0.3, Baso # (Auto) 0.0, Total Counted 100, Neutrophils % (Manual) 92 H, Lymphocytes % (Manual) 4 L, Monocytes % (Manual) 3, Eosinophils % (Manual) 1, Platelet Estimate Normal, RBC Morphology Normal 08/31/19 06:05: Sodium 143, Potassium 4.7 D, Chloride 110 H, Carbon Dioxide 18 L D, Anion Gap 19.7 H, BUN 17, Creatinine 1.35 H, Estimated Creat Clear 77, Estimated GFR 40 L, Est GFR ( Amer) 49 L, Glucose 85 D, Calcium 8.6 Medical History: Reports:: Anxiety, Atherosclerotic Heart Disease, Congestive Heart Failure (2018), Chronic Obstructive Pulmonary Disease (COPD), Coronary Artery Disease, Depression, Gastroesophageal Reflux Disease(GERD), Hypertension, Lung Disease, MRSA (Lungs - 2017) Denies:: Cancer, Diabetes Mellitus Type 1, Diabetes Mellitus Type 2, Internal Pacemaker, Seizures Assessment and Plan - Assessment and plan all Dx Assessment and Plan for all problems:: RECOMMEND CONTINUING WITH VANCOMYCIN 2000 MG Q24H STARTING AT 1500 TODAY. PATIENT RECEIVED VANCOMYCIN 2500 MG X1 DOSE OVERNIGHT IN ER. PHARMACY WILL FOLLOW DAILY AND ADJUST APPROPRIATE.
--- NOTE | 2019-08-31 10:12 | Electrocardiograph Report ---
APPROVED REPORT Exam: Resting ECG HR:94 bpm ECG Measurements Heart Rate 94 AXES [place] 188 P 58 QRSd 92 QRS 70 QT 346 T-34 QTc 432 <Conclusion> Normal sinus rhythm ST & T wave abnormality, consider inferolateral ischemia Abnormal ECG Electronically signed by : Jason Spear, 08/31/2019 10:12:19
--- NOTE | 2019-08-31 10:14 | Electrocardiograph Report ---
APPROVED REPORT Exam: Resting ECG HR:66 bpm ECG Measurements Heart Rate 66 AXES [place] 160 P 51 QRSd 96 QRS 62 QT 420 T4 QTc 440 <Conclusion> Normal sinus rhythm with sinus arrhythmia Nonspecific T wave abnormality Abnormal ECG Electronically signed by : Jason Spear, 08/31/2019 10:13:58
--- NOTE | 2019-08-31 11:27 | Consult Report ---
History of Present Illness Consult date: 08/31/19 Requesting physician: Zeke Chairez Chief complaint: Dizziness and syncope Additional Medical History:: 1. Mild nonocclusive coronary artery disease 2. Hypertension [facility] 06/2019 shows: The left main artery Normal The left anterior descending artery Is proximally normal and has mid vessel 10 to 20% stenosis The circumflex artery Nondominant yet still large and normal The right coronary artery Dominant with proximal concentric 20 to 30% stenosis mid vessel long 10 to 20% stenoses The ARIAS ventriculogram reveals Normal 60% The left ventricular end-diastolic pressure Moderately elevated at 20 to 25 mmHg IMPRESSION Mild [id number] coronary artery disease Normal ejection fraction Elevated LVEDP consistent with diastolic dysfunction PLAN 1. Medical management for severe diastolic dysfunction 2. Liberalize diuretics History of present illness: This is a 59-year-old female who presented to the emergency department with complaints of dizziness and lightheadedness. The patient states that she woke up feeling really dizzy and then went to take a cage to a friend's house. She states that as she was walking she felt very dizzy and unsteady. She states that she got extremely lightheaded and then passed out at her friend's house. Upon arrival to the emergency department the patient was unresponsive and they had to pull her out of her friend's car. She was administered Narcan and she was awake when the ER physician arrived and was alert and speaking. The patient denies using any street drugs. She states that she did take 2 Lortab that she was prescribed after a tooth extraction approximately 6 or 7 days ago. The patient states that she did not feel oversedated from that medication. She does report coughing up some green phlegm here recently. She denies any chest pain or pressure. She says she does have some shortness of breath intermittently. She denies edema. She denies fevers, chills, nausea, vomiting, diarrhea, PND or orthopnea. The patient states that she had symptoms similar to this about a month ago where she passed out. She states that when she has these episodes of passing out her blood pressure is really low. She feels like she is overmedicated with her blood pressure medicines and that is what is causing her to have syncope and passed out. [facility] History I have reviewed the patient's past medical history: Yes Medical History: Reports:: Anxiety, Atherosclerotic Heart Disease, Congestive Heart Failure (2018), Chronic Obstructive Pulmonary Disease (COPD), Coronary Artery Disease, Depression, Gastroesophageal Reflux Disease(GERD), Hypertension, Lung Disease, MRSA (Lungs - 2017) Denies:: Cancer, Diabetes Mellitus Type 1, Diabetes Mellitus Type 2, Internal Pacemaker, Seizures *Have you ever received a pneumonia vaccine?: Yes (3 years ago) *Have you received a flu vaccine this season?: No (unable r/t sickness) Other Medical History: Reports: Anemia, Arthritis, Fibromyalgia, Hypothyroidism, Thyroid Disease, Other Laterality Cases: Bilateral: Tonsillectomy Other Surgeries: Yes: No Previous Surgery, Angioplasty, Cardiac Catheterization, Cholecystectomy, Colonoscopy, Dilation and Curettage, Hysterectomy-Total, Other. No: Pacemaker Amputation: No Fractures: No - *Social History Educational Level: Completed College Smoking Status: Current every day smoker Tobacco Type: cigarettes # Packs/Day (cigarettes): 1 #Yrs smoked (if former smoker): 1 Alcohol Intake: never Alcohol Intake Frequency:: holidays/special occasions only Substance Use Type: denies use *Occupational Status:: employed Housing: house Household Members: family *Travel in the last 8 weeks: None - Psychiatric History Pschychiatric History:: Reports:: Anxiety, Depression Family Hx:: Anemia, Bleeding Disorder, Cancer, Coronary Artery Disease, Hyperlipidemia, Hypertension, Stroke, Thyroid Disorder Meds Home Medications Medication Instructions Recorded Confirmed Type budesonide-formoterol HFA 80 2 puff INHALATION BID 08/25/18 08/31/19 History mcg-4.5 mcg/actuation aerosol inhaler montelukast 10 mg tablet 10 mg PO HS 30 Days #30 tab 08/25/18 08/31/19 History losartan 50 mg tablet 50 mg PO DAILY #90 tab 09/25/18 08/31/19 Rx fluticasone propionate 50 2 spray INTRANASAL DAILY #16 g 10/23/18 08/31/19 Rx mcg/actuation nasal spray,suspension albuterol sulfate HFA 90 2 inh INHALATION TID PRN #18 g 11/19/18 08/31/19 Rx mcg/actuation aerosol inhaler spironolactone 50 mg tablet 50 mg PO DAILY #90 tab 03/12/19 08/31/19 Rx Famotidine [Acid Cooperative Extension Agent] 20 mg PO DAILY 05/03/19 08/31/19 History Trazodone HCl 200 mg PO HSP PRN 05/03/19 08/31/19 History gabapentin 800 mg tablet 800 mg PO QID #120 tab 06/09/19 08/31/19 Rx Levothyroxine Sodium 75 mcg PO DAILY 07/30/19 08/31/19 History [Levothyroxine 75mcg (0.075mg) Tab] Tizanidine HCl [Zanaflex 4mg 4 mg PO BIDP PRN 07/30/19 08/31/19 History tab] Metoprolol Tartrate [Lopressor 25 mg PO DAILY #90 tab 07/31/19 08/31/19 Rx 25mg tablet] Potassium Chloride [Micro-K 10mEq 20 meq PO BID #60 capsule.er 07/31/19 08/31/19 Rx cap] Clindamycin HCl [Clindamycin HCl 300 mg PO Q8 08/31/19 08/31/19 History 300mg Cap] Furosemide [Furosemide 40MG tAB] 40 mg PO DAILY 08/31/19 08/31/19 History Ibuprofen [Ibuprofen 600mg 600 mg PO QIDP PRN 08/31/19 08/31/19 History Tablet] Omeprazole 40 mg PO DAILY 08/31/19 08/31/19 History Allergies Allergy/AdvReac Type Severity Reaction Status Date / Time Cephalosporins Allergy RASH Verified 08/31/19 08:22 erythromycin base Allergy Hives Verified 08/31/19 08:22 minocycline Allergy RASH Verified 08/31/19 08:22 penicillin G Allergy Hives Verified 08/31/19 08:22 Sulfa (Sulfonamide Allergy RASH Verified 08/31/19 08:22 Antibiotics) Review of Systems - Review of Systems Review of systems:: pertinent systems reviewed and negative unless documented below - Constitutional Reports fatigue - *Respiratory Reports shortness of breath, Reports shortness of breath with activity - *Neurologic Reports dizziness Comments: Syncope Exam Vital signs and Labs for Last 24 Hours: Temp Pulse Resp BP Pulse Ox 97.7 F 81 20 106/36 L 90 L 08/31/19 08:00 08/31/19 08:00 08/31/19 08:00 08/31/19 08:00 08/31/19 08:00 Laboratory Results - last 24 hr 08/30/19 17:47: Urine Color Yellow, Urine Appearance Clear, Urine pH 6.0, Ur Specific [place] 1.025, Urine Protein Trace, Urine Glucose (UA) Negative, Urine Ketones Negative, Urine Blood Negative, Urine Nitrate Negative, Urine Bilirubin Negative, Urine Urobilinogen 0.2, Ur Leukocyte Esterase Trace, Urine RBC Occasional, Urine WBC 3-5, Ur Squamous Epith Cells 5-10, Urine Bacteria 1+, Urine Mucus 2+ 08/30/19 17:47: WBC 20.2 H*, RBC 4.09 L, Hgb 12.9, Hct 41.5, MCV 101.5 H, MCH 31.6 H, MCHC 31.1 L, RDW 12.9, Plt Count 325, MPV 8.8, Neut % (Auto) 88.2 H, Lymph % (Auto) 7.9 L, [place] % (Auto) 3.1, Eos % (Auto) 0.6, Baso % (Auto) 0.1, Neut # (Auto) 17.8 H, Lymph # (Auto) 1.6, [place] # (Auto) 0.6, Eos # (Auto) 0.1, Baso # (Auto) 0.0, Total Counted 100, Neutrophils % (Manual) 87 H, Band Neutrophils % 2.0, Lymphocytes % (Manual) 11, Platelet Estimate Normal, Hypochromasia 1+, Macrocytosis 1+ 08/30/19 17:47: Urine Opiates Screen Positive H, Urine Methadone Screen Negative, Ur Barbituates Screen Negative, Ur Phencyclidine Scrn Negative, Ur Amphetamines Screen Negative, U Benzodiazepines Scrn Negative, Urine Cocaine Screen Negative, U Marijuana (THC) Screen Negative 08/30/19 17:47: B-Natriuretic Peptide 564 H 08/30/19 18:30: Sodium 138, Potassium 3.0 L, Chloride 104, Carbon Dioxide 24, Anion Gap 13.0, BUN 17, Creatinine 1.50 H, Estimated Creat Clear 38, Estimated GFR 36 L, Est GFR ( Amer) 43 L, Glucose 128 H, Calcium 9.0, Total Bilirubin 0.5, AST 58 H, ALT 27, Alkaline Phosphatase 83, Troponin I 0.25 H, Total Protein 5.9 L, Albumin 2.5 L, Globulin 3.4 H, Albumin/Globulin Ratio 0.7 L , Salicylates 5.5, Acetaminophen 6.7 L, Plasma/Serum Alcohol 0 08/30/19 19:07: Lactate 1.3 08/30/19 21:10: Troponin I 0.23 H 08/31/19 00:20: Troponin I 0.21 H 08/31/19 04:09: POC Glucose 96 08/31/19 06:05: WBC 22.2 H*, RBC 3.57 L, Hgb 11.7 L, Hct 35.3 L, MCV 98.9, MCH 32.8 H, MCHC 33.2, RDW 13.0, Plt Count 215 D, MPV 10.0, Neut % (Auto) 86.6 H, Lymph % (Auto) 6.4 L, [place] % (Auto) 5.8, Eos % (Auto) 1.2, Baso % (Auto) 0.1, Neut # (Auto) 18.8 H, Lymph # (Auto) 1.4, [place] # (Auto) 1.3 H, Eos # (Auto) 0.3, Baso # (Auto) 0.0, Total Counted 100, Neutrophils % (Manual) 92 H, Lymphocytes % (Manual) 4 L, Monocytes % (Manual) 3, Eosinophils % (Manual) 1, Platelet Estimate Normal, RBC Morphology Normal 08/31/19 06:05: Sodium 143, Potassium 4.7 D, Chloride 110 H, Carbon Dioxide 18 L D, Anion Gap 19.7 H, BUN 17, Creatinine 1.35 H, Estimated Creat Clear 77, Estimated GFR 40 L, Est GFR ( Amer) 49 L, Glucose 85 D, Calcium 8.6 I & O for Last 24 hours: Intake & Output 08/28/19 08/29/19 08/30/19 08/31/19 23:59 23:59 23:59 23:59 Intake Total 3960 / 4182 1413 / 1413 Output Total 1725 / 1725 Balance 3960 / 4182 -312 / -312 Weight 235 lb 8 oz 238 lb 9 oz Narrative: EKG #1 shows sinus rhythm with a rate of [address] and T wave abnormalities. EKG #2 shows sinus rhythm with a rate of [address] and T wave abnormalities - Constitutional no acute distress, obese - *Routine HEENT Exam Head: Present: normocephalic, atraumatic Eye: Present: EOMI, PERRL ENT: Present: mucous membranes moist - *Routine Neck Exam Present: supple, full ROM, normal carotid upstroke. Absent: JVD, carotid bruit, lymphadenopathy - *Routine Respiratory Exam Present: CTA bilaterally - *Routine Cardiovascular Exam Present: RRR, Normal S1, Normal S2. Absent: murmur - *Routine Abdominal Exam Present: soft, normoactive bowel sounds. Absent: tenderness, distended - *Routine Extremities Exam Present: full ROM, pulses intact, normal capillary refill. Absent: cyanosis, clubbing, edema - *Routine Skin Exam Present: intact, warm. Absent: erythema, rash - *Routine Neurological Exam Present: alert, oriented X3, CN II-XII intact. Absent: sensory deficit, motor deficit - Routine Psychiatric Exam Present: normal affect, normal thought process - Detailed Eye Exam Eyelids: Left normal inspection Assessment and Plan (1) Dizziness Current visit: Yes Status: Acute Category: Medical Code(s): R42 - Dizziness and giddiness (2) Syncope Current visit: Yes Status: Acute Category: Medical Code(s): R55 - Syncope and collapse (3) Coronary artery disease Current visit: Yes Status: Chronic Category: Medical Code(s): I25.10 - Atherosclerotic heart disease of [place] coronary artery without angina pectoris (4) Elevated troponin Current visit: Yes Status: Acute Category: Medical Code(s): R74.8 - Abnormal levels of other serum enzymes (5) Tobacco use disorder Current visit: No Status: Chronic Category: Medical Code(s): F17.200 - Nicotine dependence, unspecified, uncomplicated (6) Diastolic dysfunction Current visit: No Status: Chronic Category: Medical Code(s): I51.9 - Heart disease, unspecified - Assessment and plan all Dx Assessment and Plan for all problems:: Plan: 1. Patient was admitted to the hospital for dizziness and syncope. She had taken some Lortab that was prescribed to her after having a tooth extraction 6 days ago. The patient states that she attributes her dizziness and syncope to low blood pressure. She states that this also happened a month ago and every time she has the syncopal episode her blood pressure is really low. She states even at home on a regular day her systolic blood pressure is in the low 100s. We will adjust her blood pressure medications in case this syncope is from her blood pressure. 2. Stop losartan. 3. Continue metoprolol at current dose. 4. The patient does have mild nonocclusive coronary artery disease. She had a heart cath in June 2019 which showed mild disease. Her coronary artery disease is likely stable. Her elevated troponin is most likely secondary to demand ischemia from her syncopal episode. Recent cath in Jun 2019 shows mild disease. No plans for invasive cardiac testing at this time. 5. Her blood pressure is on the low side. We will adjust her blood pressure medications as mentioned above. 6. Her LDL goal is less than 55. 7. Her echocardiogram is currently pending. 8. Recommend a 2-week event monitor at discharge given her syncope. 9. Further recommendations will be made pending the patient's response to treatment. Thank you for the opportunity to help participate in the care of this patient.
--- NOTE | 2019-08-31 12:09 | History & Physical Report ---
*Admission Date: 08/30/19 *Chief complaint: sob *History of present illness: this pt presented to the ed with sob -T HAD TO BE GOTTEN OUT OF FRIEND'S VEHICLE PER ED AND [facility] STAFF. FRIEND REPORTS PT COME OVER TO HER HOUSE AND COLLAPSED BEHIND HER CAR. FRIEND REPORTS PT EVENTUALLY WAS ABLE TO CRAWL INTO THE VEHICLE FOR TRANSPORTATION TO THE ED. PT LETHARGIC WHEN STAFF HAD TO LIFT HER OUT OF THE CAR AND INTO THE WHEELCHAIR. PT ONLY MUMBLED ONCE IN THE ED AND ASKED QUESTIONS BY STAFF. AFTER ADMINISTRATION OF NARCAN PT WAS A&O X4. ONCE A&O PT REPORTS THAT SHE HAS BEEN EXPERIENCING DIZZINESS, LIGHTHEADED, SOA SINCE Saturday Patient says that she is feeling lightheaded and dizzy today and passed out at a friend's house. Nursing staff reported that she was unresponsive and had to pull her out of her friend's car and they administered Narcan prior to my arrival and when I arrived she is awake and alert and speaking. However, she denies using any street drugs. She says that she is on Lortab for extracted teeth 6 days ago and only took 2 Lortab today. She denies using any other prescription pain relievers for any other sedating medications. She says that today she coughed up a large amount of green phlegm. She is currently denying any pain upon my arrival but developed chest pain during my interview. Denies leg pain or swelling. She does complain of shortness of breath. She denies fever. Denies abdominal pain, vomiting, or diarrhea. [facility] History I have reviewed the patient's past medical history: Yes Medical History: Reports:: Anxiety, Atherosclerotic Heart Disease, Congestive Heart Failure (2018), Chronic Obstructive Pulmonary Disease (COPD), Coronary Artery Disease, Depression, Gastroesophageal Reflux Disease(GERD), Hypertension, Lung Disease, MRSA (Lungs - 2017) Denies:: Cancer, Diabetes Mellitus Type 1, Diabetes Mellitus Type 2, Internal Pacemaker, Seizures *Have you ever received a pneumonia vaccine?: Yes (3 years ago) *Have you received a flu vaccine this season?: No (unable r/t sickness) Other Medical History: Reports: Anemia, Arthritis, Fibromyalgia, Hypothyroidism, Thyroid Disease, Other Laterality Cases: Bilateral: Tonsillectomy Other Surgeries: Yes: No Previous Surgery, Angioplasty, Cardiac Catheterization, Cholecystectomy, Colonoscopy, Dilation and Curettage, Hysterectomy-Total, Other. No: Pacemaker Amputation: No Fractures: No - *Social History Educational Level: Completed College Smoking Status: Current every day smoker Tobacco Type: cigarettes # Packs/Day (cigarettes): 1 #Yrs smoked (if former smoker): 1 Alcohol Intake: never Alcohol Intake Frequency:: holidays/special occasions only Substance Use Type: denies use *Occupational Status:: employed Housing: house Household Members: family *Travel in the last 8 weeks: None - Psychiatric History Pschychiatric History:: Reports:: Anxiety, Depression Family Hx:: Anemia, Bleeding Disorder, Cancer, Coronary Artery Disease, Hyperlipidemia, Hypertension, Stroke, Thyroid Disorder Review of Systems - Review of Systems Review of systems:: pertinent systems reviewed and negative unless documented below - Constitutional Denies fever(s) - Eyes Denies change in vision - ENT Denies sore throat - *Cardiovascular Reports chest pain - *Respiratory Reports cough, Reports shortness of breath - *Gastrointestinal Denies abdominal pain - *Genitourinary Denies pelvic pain - *Musculoskeletal Denies joint pain - Integumentary/Breasts Denies rash - *Neurologic Reports dizziness, Denies abnormal speech, Denies loss of vision - Psychiatric Denies anxiety Meds Home Medications Medication Instructions Recorded Confirmed Type budesonide-formoterol HFA 80 2 puff INHALATION BID 08/25/18 08/31/19 History mcg-4.5 mcg/actuation aerosol inhaler montelukast 10 mg tablet 10 mg PO HS 30 Days #30 tab 08/25/18 08/31/19 History losartan 50 mg tablet 50 mg PO DAILY #90 tab 09/25/18 08/31/19 Rx fluticasone propionate 50 2 spray INTRANASAL DAILY #16 g 10/23/18 08/31/19 Rx mcg/actuation nasal spray,suspension albuterol sulfate HFA 90 2 inh INHALATION TID PRN #18 g 11/19/18 08/31/19 Rx mcg/actuation aerosol inhaler spironolactone 50 mg tablet 50 mg PO DAILY #90 tab 03/12/19 08/31/19 Rx Famotidine [Acid Fall Intern] 20 mg PO DAILY 05/03/19 08/31/19 History Trazodone HCl 200 mg PO HSP PRN 05/03/19 08/31/19 History gabapentin 800 mg tablet 800 mg PO QID #120 tab 06/09/19 08/31/19 Rx Levothyroxine Sodium 75 mcg PO DAILY 07/30/19 08/31/19 History [Levothyroxine 75mcg (0.075mg) Tab] Tizanidine HCl [Zanaflex 4mg 4 mg PO BIDP PRN 07/30/19 08/31/19 History tab] Metoprolol Tartrate [Lopressor 25 mg PO DAILY #90 tab 07/31/19 08/31/19 Rx 25mg tablet] Potassium Chloride [Micro-K 10mEq 20 meq PO BID #60 capsule.er 07/31/19 08/31/19 Rx cap] Clindamycin HCl [Clindamycin HCl 300 mg PO Q8 08/31/19 08/31/19 History 300mg Cap] Furosemide [Furosemide 40MG tAB] 40 mg PO DAILY 08/31/19 08/31/19 History Ibuprofen [Ibuprofen 600mg 600 mg PO QIDP PRN 08/31/19 08/31/19 History Tablet] Omeprazole 40 mg PO DAILY 08/31/19 08/31/19 History Allergies Allergy/AdvReac Type Severity Reaction Status Date / Time Cephalosporins Allergy RASH Verified 08/31/19 08:22 erythromycin base Allergy Hives Verified 08/31/19 08:22 minocycline Allergy RASH Verified 08/31/19 08:22 penicillin G Allergy Hives Verified 08/31/19 08:22 Sulfa (Sulfonamide Allergy RASH Verified 08/31/19 08:22 Antibiotics) Exam Vital signs and Labs for Last 24 Hours: Temp Pulse Resp BP Pulse Ox 98.4 F 70 20 148/49 H 92 L 08/31/19 11:56 08/31/19 11:56 08/31/19 11:56 08/31/19 11:56 08/31/19 11:56 Laboratory Results - last 24 hr 08/30/19 17:47: Urine Color Yellow, Urine Appearance Clear, Urine pH 6.0, Ur Specific [place] 1.025, Urine Protein Trace, Urine Glucose (UA) Negative, Urine Ketones Negative, Urine Blood Negative, Urine Nitrate Negative, Urine Bilirubin Negative, Urine Urobilinogen 0.2, Ur Leukocyte Esterase Trace, Urine RBC Occasional, Urine WBC 3-5, Ur Squamous Epith Cells 5-10, Urine Bacteria 1+, Urine Mucus 2+ 08/30/19 17:47: WBC 20.2 H*, RBC 4.09 L, Hgb 12.9, Hct 41.5, MCV 101.5 H, MCH 31.6 H, MCHC 31.1 L, RDW 12.9, Plt Count 325, MPV 8.8, Neut % (Auto) 88.2 H, Lymph % (Auto) 7.9 L, [place] % (Auto) 3.1, Eos % (Auto) 0.6, Baso % (Auto) 0.1, Neut # (Auto) 17.8 H, Lymph # (Auto) 1.6, [place] # (Auto) 0.6, Eos # (Auto) 0.1, Baso # (Auto) 0.0, Total Counted 100, Neutrophils % (Manual) 87 H, Band Neutrophils % 2.0, Lymphocytes % (Manual) 11, Platelet Estimate Normal, Hypochromasia 1+, Macrocytosis 1+ 08/30/19 17:47: Urine Opiates Screen Positive H, Urine Methadone Screen Negative, Ur Barbituates Screen Negative, Ur Phencyclidine Scrn Negative, Ur Amphetamines Screen Negative, U Benzodiazepines Scrn Negative, Urine Cocaine Screen Negative, U Marijuana (THC) Screen Negative 08/30/19 17:47: B-Natriuretic Peptide 564 H 08/30/19 18:30: Sodium 138, Potassium 3.0 L, Chloride 104, Carbon Dioxide 24, Anion Gap 13.0, BUN 17, Creatinine 1.50 H, Estimated Creat Clear 38, Estimated GFR 36 L, Est GFR ( Amer) 43 L, Glucose 128 H, Calcium 9.0, Total Bilirubin 0.5, AST 58 H, ALT 27, Alkaline Phosphatase 83, Troponin I 0.25 H, Total Protein 5.9 L, Albumin 2.5 L, Globulin 3.4 H, Albumin/Globulin Ratio 0.7 L , Salicylates 5.5, Acetaminophen 6.7 L, Plasma/Serum Alcohol 0 08/30/19 19:07: Lactate 1.3 08/30/19 21:10: Troponin I 0.23 H 08/31/19 00:20: Troponin I 0.21 H 08/31/19 04:09: POC Glucose 96 08/31/19 06:05: WBC 22.2 H*, RBC 3.57 L, Hgb 11.7 L, Hct 35.3 L, MCV 98.9, MCH 32.8 H, MCHC 33.2, RDW 13.0, Plt Count 215 D, MPV 10.0, Neut % (Auto) 86.6 H, Lymph % (Auto) 6.4 L, [place] % (Auto) 5.8, Eos % (Auto) 1.2, Baso % (Auto) 0.1, Neut # (Auto) 18.8 H, Lymph # (Auto) 1.4, [place] # (Auto) 1.3 H, Eos # (Auto) 0.3, Baso # (Auto) 0.0, Total Counted 100, Neutrophils % (Manual) 92 H, Lymphocytes % (Manual) 4 L, Monocytes % (Manual) 3, Eosinophils % (Manual) 1, Platelet Estimate Normal, RBC Morphology Normal 08/31/19 06:05: Sodium 143, Potassium 4.7 D, Chloride 110 H, Carbon Dioxide 18 L D, Anion Gap 19.7 H, BUN 17, Creatinine 1.35 H, Estimated Creat Clear 77, Estimated GFR 40 L, Est GFR ( Amer) 49 L, Glucose 85 D, Calcium 8.6 I & O for Last 24 hours: Intake & Output 08/29/19 08/30/19 08/31/19 09/01/19 11:59 11:59 11:59 11:59 Intake Total 5373 / 5373 Output Total 1725 / 1725 Balance 3648 / 3648 Weight 238 lb 8.995 oz - Constitutional no acute distress, obese - *Routine HEENT Exam Head: Present: normocephalic Eye: Present: EOMI, PERRL. Absent: conjunctival icterus ENT: Present: mucous membranes dry - *Routine Neck Exam Present: supple. Absent: JVD - *Routine Respiratory Exam Present: decreased breath sounds - *Routine Cardiovascular Exam Present: RRR, murmur - *Routine Abdominal Exam Present: soft. Absent: tenderness - *Routine Extremities Exam Absent: calf tenderness - *Routine Skin Exam Present: intact - *Routine Neurological Exam Present: alert. Absent: CN II-XII intact - Routine Psychiatric Exam Present: normal affect Assessment and Plan (1) Dizziness Current visit: Yes Status: Acute Category: Medical Code(s): R42 - Dizziness and giddiness (2) Syncope Current visit: Yes Status: Acute Category: Medical Code(s): R55 - Syncope and collapse (3) Coronary artery disease Current visit: Yes Status: Chronic Category: Medical Code(s): I25.10 - Atherosclerotic heart disease of [place] coronary artery without angina pectoris (4) Elevated troponin Current visit: Yes Status: Acute Category: Medical Code(s): R74.8 - Abnormal levels of other serum enzymes (5) Tobacco use disorder Current visit: No Status: Chronic Category: Medical Code(s): F17.200 - Nicotine dependence, unspecified, uncomplicated (6) Diastolic dysfunction Current visit: No Status: Chronic Category: Medical Code(s): I51.9 - Heart disease, unspecified (7) Septic shock Current visit: Yes Status: Acute Category: Medical Code(s): A41.9 - Sepsis, unspecified organism; R65.21 - Severe sepsis with septic shock (8) Syncope and collapse Current visit: Yes Status: Acute Category: Medical Code(s): R55 - Syncope and collapse (9) Obesity (BMI 30-39.9) Current visit: Yes Status: Acute Category: Medical Code(s): E66.9 - Obesity, unspecified
--- OUTSIDE RECORDS SUMMARY | 2019-08-31 17:03 | External Medical Summary | Continuity of Care Document ---
:1960 Author Organization [facility] Address [address] [place] [address] Phone Care Team Providers Name Role Phone Janette Chairez Primary Care Provider Janette Chairez Attending Provider Sofía Primary Care Provider Sofía Attending Provider Carlos, M Attending Provider Fryman Attending Provider Provider Primary Care Provider Unavailable Allergies, Adverse Reactions, Alerts Allergen Type Severity Reaction Last Verified Status Updated Cephalosporins Allergy RASH Yes Activ e erythromycin base Allergy Hives Yes Ac tive minocycline Allergy RASH Yes Active penicillin G Allergy Hives Yes Active Sulfa (Sulfonamide Allergy RASH Yes A ctive Antibiotics) Medications Medication Status Dose Units Route Sig Qty Days Start End Instruct ions Date Date Fluticasone Active 2 SPRAY Intranasa Daily 15 October 2 sprays in Propionate l , nost 2018 daily 1:39pm Montelukast Active 10 MG Oral At July Sodium bedtime , nightly 2017 11:22am Budesonide/Form Active 2 PUFF Inhalatio Twice a July oterol Fumarate n day 2017 11:23am Albuterol Active 2 INH Inhalatio Three 17 November Sulfate n times a 2018 4:00pm Gabapentin Active 800 MG Oral Four Yelena times a 2018 10:33am Losartan Active 50 MG Oral Daily August 8:06am Spironolactone Active 50 MG Oral Daily March 12, 2019 2:55pm Famotidine Active 20 MG Oral Daily May 03, 2019 10:32pm Trazodone Hcl Active 200 MG Oral At April TAKE TWO bedtime 2018 TABLETS BY nightly 10:32pm MOUTH AT as BEDTIME needed NEEDED FOR INSOMNIA Levothyroxine Active 75 MCG Oral Daily June 7:35am Tizanidine Hcl Active 4 MG Oral Twice a June day as 2018 7:35am Metoprolol Active 25 MG Oral Daily July Tar2018 12:06pm Potassium Active 20 MEQ Oral Twice a July give with Chloride 2018 food 12:06pm (meal/snack) Furosemide Active 40 MG Oral Daily August 31, 2019 12:53am Clindamycin Hcl Active 300 MG Oral Every 8 August ( 7:39am 1) Ibuprofen Active 600 MG Oral August2018 as 7:39am needed Omeprazole Active 40 MG Oral Daily August 31, 2019 7:39am Problems Active Problems Medical Problem Onset Date Status Hypertensive urgency Active Left-sided chest pain Active Edema of lower extremity Active Obstructive sleep apnea syndrome Active Acute exacerbation of CHF (congestive Ac tive heart failure) Hypothyroidism (acquired) Active Hypothyroidism (acquired) Active Multiple drug allergies Active Pneumonia involving left lung Active Dizziness Active Coronary artery disease Active CHF (congestive heart failure) Active Anemia Active Anemia Active Anemia Active Anemia Active Anemia Active Angina at rest Active Pulmonary hypertension Active Conjunctivitis Active Septic shock Active Fibromyalgia Active Elevated left ventricular Active end-diastolic pressure (LVEDP) Headache Active Leukocytosis Active CAP (community acquired pneumonia) Activ e Overweight Active Atypical chest pain Active NSTEMI (non-ST elevated myocardial Activ e infarction) Diastolic dysfunction Active Healthcare-associated pneumonia Active Mediastinal adenopathy Active Bronchospasm, acute Active Renal insufficiency Active Renal insufficiency Active Sinusitis Active Syncope Active Syncope and collapse Active Elevated troponin Active Elevated troponin Active Degenerative disc disease, lumbar Active Tobacco use disorder Active Diastolic dysfunction with acute on Acti ve chronic heart failure Acute bronchitis Active Elevated d-dimer Active Obesity (BMI 35.0-39.9 without Active comorbidity) Hypoxia Active Injury, lower leg Active Chronic pain disorder Active COPD (chronic obstructive pulmonary Acti ve disease) Tobacco use Active COPD exacerbation Active Chest pain Active Diastolic CHF, acute on chronic Active Hypertensive disorder Active Pneumonia Active IBS (irritable bowel syndrome) Active Obesity Active Obesity Active Obesity Active Obesity Active Obesity Active Coronary arteriosclerosis Active Contusion of hip, left Active Hypokalemia Active Hypokalemia Active Hypokalemia Active Hypokalemia Active Hypokalemia Active Inactive/Resolved Problems Medical Problem Onset Date Status ELEANOR (acute kidney injury) Resolved Procedures Procedure Date Performed Status XR chest portable August 30, 2019 completed ECG initial Besson August 30, 2019 completed XR chest portable PICC plac August 31, 2019 active XR chest portable August 31, 2019 completed ECG initial Besson August 31, 2019 completed Blood Culture August 30, 2019 active Relevant Diagnostic Tests and/or Laboratory Data Laboratory Results Test Date/Time Result Interpretation Reference Result Comment Performing Range Site White Blood November 6.4 K/mm3 4.8-10.8 [facility], [address] [place] [address] 36 E Count 2018 [place] JOY [id number] 11:32am White Blood July 7.9 K/mm3 4.8-10.8 [facility], [address] [place] [address] 36 E Count 2018 [place] JOY 62440 10:30am White Blood August 22.2 K/mm3 4.8-10.8 [facility], [address] [place] [address] 36 E Count 2018 [place] JOY 93083 6:05am Red Blood July 3.98 M/mm3 4.20-5.40 [facility], [address] [place] [address] 36 E Count 2018 Rud[place] JOY 94141 11:32am Red Blood July 4.08 M/mm3 4.20-5.40 [facility], [address] [place] [address] 36 E Count 2018 [place] JOY 80489 10:30am Red Blood August 3.57 M/mm3 4.20-5.40 [facility], [address] [place] [address] 36 E Count 2018 [place] JOY 36939 6:05am Hemoglobin July 13.0 g/dL 12.2-16.2 [facility], [address] [place] [address] 36 E 2018 [place] JOY 12323 11:32am Hemoglobin July 13.6 g/dL 12.2-16.2 [facility], [address] [place] [address] E 2018 Rud[place] JOY 03354 10:30am Hemoglobin Nolberto 11.7 g/dL 12.2-16.2 [facility], [address] [place] [address] E 2018 Rud[place] JOY 68468 6:05am Hematocrit July 42.5 % 37.0-47.0 [facility], [address] [place] [address] E 2018 Rud[place] JOY 95338 11:32am Hematocrit July 42.2 % 37.0-47.0 [facility], [address] [place] [address] E 2018 Rud[place] JOY 01164 10:30am Hematocrit August 35.3 % 37.0-47.0 [facility], [address] [place] [address] E 2018 Rud[place] JOY 53029 6:05am Mean July 106.8 fl 81-99 [facility], [address] [place] [address] E Corpuscular 2018 Tiffany beena JOY 23951 Volume 11:32am Mean July 103.3 fl 81-99 [facility], [address] [place] [address] E Corpuscular 2018 Tiffany beena JOY 07404 Volume 10:30am Mean August 98.9 fl 81-99 [facility], [address] [place] [address] E Corpuscular 2018 Sussysilviano yuri JOY 24361 Volume 6:05am Mean July 32.6 pg 27.0-31.2 [facility], [address] [place] [address] E Corpuscular 2018 Tiffany JOY 67226 Hemoglobin 11:32am Mean July 33.4 pg 27.0-31.2 [facility], [address] [place] [address] E Corpuscular 2018 Tiffany JOY 63438 Hemoglobin 10:30am Mean August 32.8 pg 27.0-31.2 [facility], [address] [place] [address] E Corpuscular 2018 Richie JOY 44388 Hemoglobin 6:05am Mean July 30.5 g/dL 31.8-35.4 [facility], [address] [place] [address] E Corpuscular 2018 Tiffany JOY 19970 Hemoglobin 11:32am Concent Mean July 32.3 g/dL 31.8-35.4 [facility], [address] [place] [address] E Corpuscular 2018 Tiffany beena [place] 12598 Hemoglobin 10:30am Concent Mean Nolberto 33.2 g/dL 31.8-35.4 [facility], [address] [place] [address] E Corpuscular 2018 Sussysilivano JOY 63877 Hemoglobin 6:05am Concent Red Cell November 13.5 % 11.5-17.5 [facility], [address] [place] [address] E Distribution 2018 Micah JOY 66826 Width 11:32am Red Cell November 13.3 % 11.5-17.5 [facility], [address] [place] [address] E Distribution 2018 Micah JOY 68130 Width 10:30am Red Cell Nolberto 13.0 % 11.5-17.5 [facility], [address] [place] [address] E Distribution 2018 Tiffany beena [place] 96081 Width 6:05am Platelet November 275 K/mm3 142-424 [facility], [address] [place] [address] E Count 2018 [place] 18069 11:32am Platelet November 299 K/mm3 142-424 [facility], [address] [place] [address] E Count 2018 [place] 28683 10:30am Platelet Nolberto 215 K/mm3 142-424 Delta: 325 on [facility], [address] [place] [address] E Count [id number]/30/19-1747 Micah geiger [place] 24540 6:05am Mean Platelet November 8.8 fl 7.4-10.4 [facility], [address] [place] [address] E Volume 2018 [place] 48602 11:32am Mean Platelet November 8.1 fl 7.4-10.4 [facility], [address] [place] [address] E Volume 2018 Rud[place] 63903 10:30am Mean Platelet Nolberto 10.0 fl 7.4-10.4 [facility], [address] [place] [address] E Volume 2018 [place] [address] 6:05am Neutrophils November 69.0 % 37.0-80.0 [place] [address] E (%) (Auto) 2018 Richie Hu 11:32am Neutrophils November 77.3 % 37.0-80.0 [facility], [address] [place] [address] E (%) (Auto) 2018 Richie Hu 10:30am Neutrophils Nolberto 86.6 % 37.0-80.0 [facility], [address] [place] [address] E (%) (Auto) 2018 Rudolph Hu 6:05am Lymphocytes November 23.3 % 10-50 [facility], [address] [place] [address] E (%) (Auto) 2018 Richie Hu 11:32am Lymphocytes November 14.8 % [place] [address] E (%) (Auto) 2018 Richie Hu 10:30am Lymphocytes Nolberto 6.4 % 1050 [place] [address] E (%) (Auto) 2018 Rudolph Hu 6:05am Monocytes (%) July 3.3 % 1.7-9.3 [place] [address] E (Auto) 2018 Rudolph Hu 11:32am Monocytes (%) July 4.2 % 1.7-9.3 [facility], [address] [place] [address] E (Auto) 2018 Rudolph Hu 10:30am Monocytes (%) August 5.8 % 1.7-9.3 [facility], [address] [place] [address] E (Auto) 2018 Rudolph Noe31 6:05am Eosinophils November 3.8 % 0.1-12.0 [place] [address] E (%) (Auto) 2018 Richie JOY 73997 11:32am Eosinophils November 3.1 % 0.1-12.0 [place] [address] E (%) (Auto) 2018 Richie JOY 38415 10:30am Eosinophils Nolberto 1.2 % 0.1-12.0 [place] [address] E (%) (Auto) 2018 Rudolph Noe31 6:05am Basophils (%) November 0.6 % 0.1-2.0 [place] on [facility], [address] [place] [address] 36 E (Auto) 2018carlos JOY 73045 11:32am Basophils (%) July 0.6 % 0.1-2.0 [place] [facility], [address] [place] [address] 36 E (Auto) 2018juanjo JOY 93494 10:30am Basophils (%) Nolberto 0.1 % 0.1-2.0 [place] on [facility], [address] [place] [address] 36 E (Auto) 2018carlos JOY 93340 6:05am Neutrophils # July 4.4 K/mm3 1.8-7.8 [place] on [facility], [address] [place] [address] 36 E (Auto) 2018juanjo JOY 86218 11:32am Neutrophils # July 6.1 K/mm3 1.8-7.8 [place] [facility], [address] [place] [address] 36 E (Auto) 2018juanjo JOY 11261 10:30am Neutrophils # August 18.8 K/mm3 1.8-7.8 [facility], [address] [place] [address] 36 E (Auto) 2018juanjo JOY 77936 6:05am Lymphocytes # July 1.5 K/mm3 0.7-4.5 [place] on [facility], [address] [place] [address] 36 E (Auto) 2018juanjo JOY 35491 11:32am Lymphocytes # July 1.2 K/mm3 0.7-4.5 [place] on [facility], [address] [place] [address] 36 E (Auto) 2018juanjo JOY 63966 10:30am Lymphocytes # August 1.4 K/mm3 0.7-4.5 [place] on [facility], [address] [place] [address] 36 E (Auto) 2018juanjo JOY 31486 6:05am Monocytes # July 0.2 K/mm3 0.1-1.0 [facility], [address] [place] [address] 36 E (Auto) 2018juanjo JOY 89774 11:32am Monocytes # July 0.3 K/mm3 0.1-1.0 [facility], [address] [place] [address] 36 E (Auto) 2018juanjo JOY 42917 10:30am Monocytes # August 1.3 K/mm3 0.1-1.0 [facility], [address] [place] [address] 36 E (Auto) 2018 Rud[place] JOY 13388 6:05am Eosinophils # November 0.2 K/mm3 0.0-0.4 [facility], [address] [place] [address] 36 E (Auto) 2018 Rudolph JOY 32435 11:32am Eosinophils # November 0.2 K/mm3 0.0-0.4 [facility], [address] [place] [address] 36 E (Auto) 2018 Rudolph JOY 23493 10:30am Eosinophils # Nolberto 0.3 K/mm3 0.0-0.4 [facility], [address] [place] [address] 36 E (Auto) 2018 Rudolph JOY 29897 6:05am Basophils # November 0.0 K/mm3 0-0.2 [facility], [address] [place] [address] E (Auto) 2018 Rudolph JOY 41767 11:32am Basophils # November 0.1 K/mm3 0-0.2 [facility], [address] [place] [address] E (Auto) 2018 Rudolph JOY 53336 10:30am Basophils # Nolberto 0.0 K/mm3 0-0.2 [facility], [address] [place] [address] 36 E (Auto) 2018 Rudolph JOY 35786 6:05am Differential Nolberto 100 [facility], [address] [place] [address] 36 E Total Cells 2018 Richie JOY 26452 Counted 6:05am Neutrophils % Nolberto 92 % 42-76 [facility], [address] [place] [address] 36 E (Manual) 2018 Rudolph JOY 23570 6:05am Band Nolberto 2.0 0-8 [facility], [address] [place] [address] 36 E Neutrophils % 2018 Micah JOY 94176 5:47pm Lymphocytes % Nolberto 4 % 10-50 [facility], [address] [place] [address] E (Manual) 2018 Rudolph JOY 80676 6:05am Monocytes % Nolberto 3 % 2-9 [facility], [address] [place] [address] 36 E (Manual) 2018 Rudolph JOY 96165 6:05am Eosinophils % Nolberto 1 % 0-3 [facility], [address] [place] [address] 36 E (Manual) 2018 Rud[place] JOY 76094 6:05am Platelet Nolberto Normal [facility], [address] [place] [address] 36 E Estimate 2018 Rudolph JOY 31305 6:05am Red Blood Nolberto Normal [facility], [address] [place] [address] 36 E Cell 2018 Rudolph JOY 23462 Morphology 6:05am Hypochromasia Nolberto 1+ [facility], [address] [place] [address] 36 E 2018 Rud[place] JOY 13920 5:47pm Macrocytosis Nolberto 1+ [facility], [address] [place] [address] 36 E 2018 Rudolph JOY 21375 5:47pm Urine Color Nolberto Yellow Yellow [facility], [address] [place] [address] 36 E 2018 Rud[place] JOY 52796 5:47pm Urine Nolberto Clear Clear [facility], [address] [place] [address] 36 E Appearance 2018 Rudolph JOY 18004 5:47pm Urine pH Nolberto 6.0 5.0-8.5 [facility], [address] [place] [address] 36 E 2018 Rudolph JOY 16401 5:47pm Urine Nolberto 1.025 1.005-1.03 [facility], [address] [place] [address] 36 E Specific 2018 0 Rudolph JOY [address] [place] 5:47pm Urine Protein Nolberto Trace Negative [facility], [address] [place] [address] 36 E 2018 Rudolph JOY 60686 5:47pm Urine Glucose Nolberto Negative Negative [facility], [address] [place] [address] 36 E (UA) 2018 Rudolph JOY 00471 5:47pm Urine Ketones Nolberto Negative Negative [facility], [address] [place] [address] 36 E 2018 Rudolph JOY 37015 5:47pm Urine Blood Nolberto Negative Negative [facility], [address] [place] [address] 36 E 2018 Rudolph JOY 42731 5:47pm Urine Nitrate Nolberto Negative Negative [facility], [address] [place] [address] 36 E 2018 Rudolph JOY 25858 5:47pm Urine Nolberto Negative Negative [facility], [address] [place] [address] 36 E Bilirubin 2018 Rudolph JOY 70996 5:47pm Urine Nolberto 0.2 EU/dl [facility], [address] [place] [address] 36 E Urobilinogen 2018 Tiffany JOY 30681 5:47pm Urine Nolberto Trace Negative [facility], [address] [place] [address] 36 E Leukocyte 2018 [place] [address] Esterase 5:47pm Urine RBC August Occasional [facility], [address] [place] [address] 36 E 2018 #/[place] [address] 5:47pm Urine WBC August 3-5 #/hpf [facility], [address] [place] [address] 36 E 2018 [place] 21649 5:47pm Urine Nolberto 5-10 #/hpf [facility], [address] [place] [address] 36 E Squamous 2018 [place] [address] Epithelial 5:47pm Cells Urine August 1+ /lpf NONE [facility], [address] [place] [address] 36 E Bacteria 2018 [place] [address] 5:47pm Urine Mucus August 2+ /lpf None [facility], [address] [place] [address] 36 E 2018 [place] [address] 5:47pm Troponin I August 0.21 ng/ml 0.00-0.06 *ALERT* High [facility], [address] [place] [address] 36 E 2018 [place] [address] 12:20am Biotin can falsely depress Troponin results.Many dietary supplements promoted for hair,skin, and nail benefits contain biotin levels up to 650 times the recommended daily intake of biotin. In addition to dietary supplements, Biotin is occasionally prescribed for medical conditions.0.04 - 0.49 is an Indeterminate ZoneLevels in this range can be consistent with the following conditions:Trau ma Critically ill Patients [place]cd[place] > 30%TBSACHF Hypothyroidism AmyloidosisCVA Hypertension Postop SurgeryAtrial Fib. Hypotension Vital Exhaust.Sepsis Pulmonary Embolism Renal FailureMyocardi tis Acute Neurological Disease Rhabdomyolysis Sodium Level July 143 mmol/L 136-145 [facility], [address] [place] [address] 36 E 2018 [place] [address] 11:32am Sodium Level August 143 mmol/L 136-145 [facility], [address] [place] [address] 36 E 2018 [place] [address] 6:05am Potassium July 4.5 mmoL/L 3.5-5.1 [facility], [address] [place] [address] 36 E Level 2018 [place] 80653 11:32am Potassium August 4.7 mmoL/L 3.5-5.1 Delta: 3.0 on [facility], [address] [place] [address] 36 E Level 201808/30/19 Sussychristine JOY 21100 6:05am Chloride July 108 mmol/L 107 [facility], [address] [place] [address] 36 E Level 2018 [place] [address] 11:32am Chloride August 110 mmol/L 107 [facility], [address] [place] [address] 36 E Level 2018 Rudolph JOY 57127 6:05am Carbon July 31 mmol/L 21.0-32.0 [facility], [address] [place] [address] 36 E Dioxide Level 2018 Sussysara JOY 32758 11:32am Carbon August 18 mmol/L 21.0-32.0 Delta: 24 on [facility], [address] [place] [address] 36 E Dioxide Level 201808/30/19 Geo shaikhevanjuanjo [place] 06999 6:05am Anion Gap July 8.5 mEq/L 02-11 [facility], [address] [place] [address] 36 E 2018 Rudolph JOY 92560 11:32am Anion Gap August 19.7 mEq/L 02-11 [facility], [address] [place] [address] 36 E 2018 Rudolph [place] 89773 6:05am Blood Urea July 8 mg/dL 04-16 [facility], [address] [place] [address] 36 E Nitrogen 2018 [place] [address] 11:32am Blood Urea August 17 mg/dL 04-16 [facility], [address] [place] [address] 36 E Nitrogen 2018 [place] 63623 6:05am Creatinine July 0.93 mg/dL 0.55-1.02 [facility], [address] [place] [address] 36 E 2018 [place] [address] 11:32am Creatinine August 1.35 mg/dL 0.55-1.02 [facility], [address] [place] [address] 36 E 2018 Rudolph [place] 18123 6:05am Estimated Nolberto 77 mL/min 0-300 [facility], [address] [place] [address] 36 E Creatinine 2018 Rudolph [place] 07677 Clearance 6:05am Estimated GFR July 75 ML/MIN >59 [facility], [address] [place] [address] 36 E (2018 [place] [address] Mal[place]ian) 11:32am Estimated GFR August 49 ML/MIN >59 [facility], [address] [place] [address] 36 E ( 2018 [place] [address] [place]ian) 6:05am Estimat July 62 ml/min >59 [facility], [address] [place] [address] 36 E Glomerular 2018 Richie JOY 65101 Filtration 11:32am Rate Estimat August 40 ml/min >59 [facility], [address] [place] [address] 36 E Glomerular 2018 Rudolph [place] 87486 Filtration 6:05am Rate Glucose Level July 87 mg/dL 74-106 [facility], [address] [place] [address] 36 E 2018 Rudolph [place] 24353 11:32am Glucose Level August 85 mg/dL 74-106 Delta: 128 on [facility], [address] [place] [address] 36 E 201808/30/19-0 Micah JOY 85767 6:05am Bedside August 96 70-110 Point-of-C a Glucose 2018 re (RALS) 4:09am Lactate August 1.3 mmol/L 0.4-2.0 [facility], [address] [place] [address] 36 E 2018 Rudolph [place] 79261 7:07pm Calcium Level July 8.9 mg/dL 8.5-10.1 [facility], [address] [place] [address] 36 E 2018 Rudolph [place] 12127 11:32am Calcium Level August 8.6 mg/dL 8.5-10.1 [facility], [address] [place] [address] 36 E 2018 Rudolph [place] 36159 6:05am Ferritin November 216 ng/mL 8-388 [facility], [address] [place] [address] 36 E 2018 [place] [address] 11:32am Total November 0.2 mg/dL 0.2-1.0 [facility], [address] [place] [address] 36 E Bilirubin 2018 [place] [address] 11:32am Total Nolberto 0.5 mg/dL 0.2-1.0 [facility], [address] [place] [address] 36 E Bilirubin 2018 [place] [address] 6:30pm Aspartate July 15 U/L 15-37 [facility], [address] [place] [address] 36 E Amino Transf 2018 Micah JOY 37087 (AST/SGOT) 11:32am Aspartate August 58 U/L [facility], [address] [place] [address] 36 E Amino Transf 2018 Tiffanyanat JOY 73110 (AST/SGOT) 6:30pm Alanine July 21 U/L [facility], [address] [place] [address] 36 E Aminotransfer 2018 Carmella JOY 07415 ase 11:32am (ALT/SGPT) Alanine August 27 U/L [facility], [address] [place] [address] E Aminotransfer 2018 Micah JOY 23923 ase 6:30pm (ALT/SGPT) B-Type August 564 pg/mL 0-100 [facility], [address] [place] [address] 36 E Natriuretic 2018 Richie JOY 77740 Peptide 5:47pm Total Protein July 6.3 gm/dL 6.4-8.2 [facility], [address] [place] [address] 36 E 2018 Rudolph JOY 03483 11:32am Total Protein Nolberto 5.9 gm/dL 6.4-8.2 [facility], [address] [place] [address] 36 E 2018 Rud[place] JOY 94429 6:30pm Albumin November 3.0 gm/dL 3.4-5.0 [facility], [address] [place] [address] 36 E 2018 Rudolph JOY 00910 11:32am Albumin Nolberto 2.5 gm/dL 3.4-5.0 [facility], [address] [place] [address] 36 E 2018 Rudolph JOY 81497 6:30pm Globulin November 3.3 gm/dl 1.3-3.2 [facility], [address] [place] [address] 36 E 2018 Rudolph JOY 84659 11:32am Globulin Nolberto 3.4 gm/dl 1.3-3.2 [facility], [address] [place] [address] 36 E 2018 Rudolph RUFINO 48100 6:30pm Albumin/Globu November 0.9 1.1-1.8 [facility], [address] [place] [address] 36 [address] molina Ratio 2018 [place] [address] 11:32am Albumin/Globu Nolberto 0.7 1.1-1.8 [facility], [address] [place] [address] 36 E molina Ratio 2018 [place] [address] 6:30pm Alkaline November 68 U/L 46-116 [facility], [address] [place] [address] 36 E Phosphatase 2018 [place] [address] 11:32am Alkaline Nolberto 83 U/L 46-116 [facility], [address] [place] [address] E Phosphatase 2018 [place] [address] 6:30pm Salicylates Nolberto 5.5 mg/dL 2.8-20.0 [facility], [address] [place] [address] E Level 2018 [place] [address] 6:30pm Urine Opiates August Positive This is an [facility], [address] [place] [address] E Screen 2018 ng/[place] [address] 5:47pm result. This result is for medical purposes and/or treatment only. Acetaminophen Nolberto 6.7 ug/mL 10-30 [facility], [address] [place] [address] E Level 2018 [place] [address] 6:30pm Urine Nolberto Negative [facility], [address] [place] [address] E Barbituates 2018 ng/[place] [address] Screen 5:47pm Urine Nolberto Negative [facility], [address] [place] [address] E Phencyclidine 2018 ng/[place] [address] Screen 5:47pm Urine Nolberto Negative [facility], [address] [place] [address] E Amphetamines 2018 ng/[place] [address] Screen 5:47pm Urine Nolberto Negative [facility], [address] [place] [address] E Methadone 2018 ng/[place] [address] Screen 5:47pm Urine Nolberto Negative [facility], [address] [place] [address] E Benzodiazepin 2018 ng/[place] [address] es Screen 5:47pm Urine Cocaine Nolberto Negative [facility], [address] [place] [address] E Screen 2018 ng/[place] [address] 5:47pm Urine Nolberto Negative [facility], [facility] Marijuana 2018 ng/[place] [address] (THC) Screen 5:47pm Plasma/Serum August 0 mg/dL 0-99 Any Alcohol > [facility], [facility] Blood Alcohol 2018 or = 80 mg/[place] [address] 6:30pm is considered legally intoxicated under [place] [facility] Law. Total Iron July 260 ug/dL [facility] Binding 2018 Acct# Capacity 11:32am [id number] Unsaturated July 173 ug/dL [facility] Iron Binding 2018 Acct# Capacity 11:32am [id number] Iron Level July 87 ug/dL [facility] 2018 Acct# 11:32am [id number] Iron July 33 % Performed at: [facility] Saturation 2018 CB - [facility] Acct# 11:32am [id number] [place], [place] [id number] Director: Nick Chaidez PhD, Phone: [phone] Immunoglobuli July 345 mg/dL Performed at: [facility] M 2018 CB - [facility] Acct# 10:30am [id number] [place], [place] [id number] Director: Nick Chaidez PhD, Phone: [phone] Diagnostic Imaging Reports Report Dictated Date/Time Dictated By Status Radiology Report August 30, 2019 Matthew Lyn completed 6:22pm [place] [address] [facility] [address] [place] [address] XRay R eport Sig radha Patient: Becca Rai MR#: [id number] : 1960 Acct:[id number] Age/Sex: 59 / F ADM Date: 9 Loc: ER Attending Dr: Ordering Physician: Adria Gillis MD Date of Service: 08/30/19 Procedure(s): XR chest portable Accession Number(s): [id number] cc: Matthew Lyn ; Provider,Serene scott MD~ PROCEDURE: XR CHEST PORTABLE CLINICAL HISTORY: AMS, SOA COMPARISON: CXR2V XR chest 2V from Chest from 05/04/2019 XR CHEST PORTABLE from 07/29/2019 CT ANGIO CHEST from 07/30/2019 FINDINGS: The patient is somewhat obese and this is a somewhat poor inspiration. There is a patchy ill-def ined opacity in the right perihilar region and right lower lobe s uggesting a developing pneumonic infiltrate. The right upper lung field and left lung kent are clear. There is mild to mod erate generalized cardiomegaly however there is no pulmonary congestio n and there is no pleural fluid. IMPRESSION: Probable right perihilar right lower lo be pneumonia Dictated by: Dr. Ruslan Lyn MD 2018 18:[address] Boogie Lyn MD in [place] 08/30/2019 18:31 Radiology Report August 31, 2019 Paresh Li MD completed 4:43am [place] [address] [place] [facility] [address] [place], [place] [address] XRay R eport Sig radha Patient: Becca Rai MR#: [id number] : 1960 Acct:[id number] Age/Sex: 59 / F ADM Date: 9 Loc: Attending Dr: Zeke Chairez MD Ordering Physician: Zeke Chairez MD Date of Service: 08/31/19 Procedure(s): XR chest portable Accession Number(s): [id number] cc: Paresh Li MD; Provider,Referral MD~ PROCEDURE: XR CHEST PORTABLE CLINICAL HISTORY: soa Shortness of air COMPARISON: Chest from 05/04/2019 XR CHEST PORTABLE from 07/29/2019 CT ANGIO CHEST from 07/30/2019 XR CHEST PORTABLE from 08/30/2019 FINDINGS: Cardiomegaly with pulmonary venous julian estion consistent with CHF. There are low lung volumes with consoli dation in both lungs which may be due to edema or pneumonia. No acute bony anomalies. IMPRESSION: CHF with increasing consolidation of rosi th lungs which may be due to pulmonary edema or diffuse pneumonia wh ich is worse. Some of the increased density may be due to the champ hnique and low lung volumes. Dictated by: Paresh Li MD 08/31/2019 05:07 Electronically signed by Paresh Li in [place] 08/31/2019 05:07 Advance Directives Advance Directive Response Recorded Date/Time Living Will No August 31, 2019 1 2:18am Does the patient have an No August 14, 2019 12:42pm advanced directive on file? Living Will No August 14, 2019 12:42pm Does the patient have an No June 09, 2019 10:35am advanced directive on file? Living Will No June 09, 2019 10:35am Does the patient have an No August 14, 2019 12:21pm advanced directive on file? Living Will No August 14, 2019 12:21pm Chief Complaint and Reason for Visit Chief Complaint 1 month follow up CHF Exacerbation cath pn LAB WORK anemia LAB WORK Hospital follow up Septic Shock, Hospital Acqui red Pneumonia Reason for Visit Acute exacerbation of CHF (c ongestive heart failure) Anemia Diastolic dysfunction with a cute on chronic heart failure Elevated d-dimer Elevated left ventricular en d-diastolic pressure (LVEDP) Mediastinal adenopathy NSTEMI (non-ST elevated myoc ardial infarction) Obesity Renal insufficiency ELEANOR (acute kidney injury) Dizziness Elevated troponin Healthcare-associated pneumo deborah Hypokalemia Septic shock Syncope Syncope and collapse Coronary artery disease Encounters Encounter Location(s) Arrival/Admit Date Discharge/Depart Date Provider(s) Departed [facility] Physician June 09June 09, 2019 Waylon Savage Physician/Provi Group-Primary 2018 9:26am 10:40am MD Mihaela reba Office Care-[facility] Visit Registered [facility] Physician July 29, 2019 July 31, 2019 Amy Savage Inpatient Group-Primary 6:00pm 1:34pm MD Mihaela Care-Mihaela Registered [facility] Physician July 30, 2019 Pool Inpatient Group-Cardiology 11:59pm MD Vanessa Gore Registered [facility] Physician July 31, 2019 Pool Inpatient Group-Cardiology 11:59pm MD Vanessa Gore Registered [facility] Physician August 11, Megan Spain Sa, pp Clinical Group-Laboratory 2018 11:30am MD Departed [facility] Physician August 14August 14, 2019 Ricky Gonzalez Physician/Provi Group-Oncology 2018 9:23am 10:07MD nori reba Office [facility] Visit Registered [facility] Physician August 14, Megan Spain Sa, pp Clinical Group-Laboratory 2018 10:28am MD Departed [facility] Physician August 14August 14, 2019 Gifty Cast Physician/Provi Group-Primary 2019 10:51am 12:19pm , 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 reba Office Care-Mihaela Visit Admitted [facility] Physician August 30, 2019 Zeke Savage Inpatient Group-Second 9:22pm MD Mihaela Floor Registered [facility] Physician August 31, 2019 Zeke Savage Inpatient Group- 4:57pm MD Mihaela Recent Diagnosis Onset Date Acute exacerbation of CHF (congestive heart failure) Anemia Diastolic dysfunction with acute on chronic heart fail ure Elevated d-dimer Elevated left ventricular end-diastolic pressure (LVED P) Mediastinal adenopathy NSTEMI (non-ST elevated myocardial infarction) Obesity Renal insufficiency ELEANOR (acute kidney injury) Dizziness Elevated troponin Healthcare-associated pneumonia Hypokalemia Septic shock Syncope Syncope and collapse Coronary artery disease Assessments Diagnosis Onset Date Resolution Status Acute exacerbation of CHF acute (congestive heart failure) Anemia acute Diastolic dysfunction with acute acute on chronic heart failure Elevated d-dimer acute Elevated left ventricular acute end-diastolic pressure (LVEDP) Mediastinal adenopathy acute NSTEMI (non-ST elevated acute myocardial infarction) Obesity acute Renal insufficiency acute ELEANOR (acute kidney injury) resolv ed Dizziness acute Elevated troponin acute Healthcare-associated acute pneumonia Hypokalemia acute Septic shock acute Syncope acute Syncope and collapse acute Coronary artery disease chronic Functional Status Observation Response Date Recorded Oral Care Ability Independent August 31, 2019 1 2:18am Bathing Ability Independent August 31, 2019 1 2:18am Eating (Feeding) Ability Independent August 31 019 12:18am Toileting Ability Independent August 31, 2019 1 2:18am Ambulation Ability Independent August 31, 2019 1 2:18am Functional status ambulatory August 14, 2019 12:42pm Functional status ambulatory June 09, 2019 10:35am Functional status ambulatory August 14, 2019 12:21pm Oral Care Ability Independent August 14, 2019 12:21pm Bathing Ability Independent August 14, 2019 12:21pm Eating (Feeding) Ability Independent August 14, 2019 12:21pm Toileting Ability Independent August 14, 2019 12:21pm Ambulation Ability Independent August 14, 2019 12:21pm Goals Acute Goals Nursing Diagnosis: Knowledge Deficit D isease/Condition Goal(s): Education of di sease process Instruction(s): Follow provider p aiden/instructions (See attached discharge education) Follow/up with primary care provider as instructed in discharge packet Ambulatory Goals Patient verbalized understanding of dise ase process/healthy behaviors. Patient to follow plan of care. Education provid ed. Immunizations Immunization Event Date Not Given Dose Coffee Weigher Lot Vac cine Reason Number Number Informatio n Statement (VIS) Deta il Pneumococcal August Polysacc. 2016 Vaccine, 23 valent Mental Status Observation Response Date Recorded Comprehension Ability No Impairment August 31, 2019 9:00am Able to Read Yes August 31, 2019 1 2:18am Able to Write Yes August 31, 2019 1 2:18am Oral Expression Ability No Impairment August 31 12:18am Medical Equipment No Medical Equipment Information available Insurance Providers Guarantor Becca Rai Address [address] [place] [address] [place] [id number] Contact Info. Home Phone: Payer Policy Id Coverage Id Subscriber's Subscriber Id Effective E xpiration Name Date Date Dano [id number] Becca Hyman [id number] [employer] Fredi Program Out Other1 [id number] Becca Hyman [id number] Fredi Self Pay Self N/A Plan of Treatment refer to rosanna puga for anxiety will refill meds at this time 1. elevated IgM- bone marrow bx no evidence of myeloma. small amount of plasma cells. will monitor labs q4-6 months. check igm level today 2. mild anemia- scant iron in bone marrow- received iv iron and energy has improved. hgb and iron studies normal today. repeat cbc 3. mild mediastinal lad- reactive vs neoplastic. most likely reactive as was done when hospitalized. will repeat ct scan in 2 months. Future Tests Future scheduled test information is unavailable Pending Tests Pending diagnostic test information is unavailable Future Visits Future appointment information is unavailable Referrals to Other Providers Reason for Referral Start Provider Provider Contact Provider Address Referral Date Information anxiety August 14, Rosanna Puga 2018 [address] Work Phone: [phone] [place] [id number] Future Procedures Future procedure information is unavailable Future Medications Future medication information is unavailable Patient Instructions Fibromyalgia DI for Heart Attack Heart Attack in Women Heart Attack Heart Failure Cardiac Catheterization Heart-Healthy Diet DI for Heart Failure DI for Angina DI for Cardiac Catheterization DI for Surgical Site Infection DI for Heart Failure DI for Atypical Chest Pain DI for Syncope in Adults (Fainting) Pneumonia-Adult Septic Shock DI for Hypokalemia Social History Observation Status Date of Observation Not August 30, 2019 Assigned Sex Female Vital Signs Vital Reading Result Reference Range Collection Date/ Time Height 162.56 cm June 09, 2019 9:28am Weight 105.82 kg June 09, 2019 9:28am Body Temperature 97.2 [degF] 97.6-99.6 June 09, 2019 9:28am Heart Rate 88 /min 60-June 09, 2019 9:28am Respiratory rate 16 /min -June 09, 2019 9:28am Oxygen saturation by 95 % 95-100 May 312018 Pulse oximetry 9:28am BP Systolic 144 mm[Hg] 110-140 June 09, 2019 9:28am BP Diastolic 84 mm[Hg] 60-90 June 09, 2019 9:28am BMI (Body Mass Index) 40.0 kg/m2 June 09, 2019 9:28am Height 163 cm July 31 12:35pm Weight 105.80 kg July 31 12:35pm Body Temperature 98.4 [degF] 97.6-99.6 July 31, 2 019 11:37am Heart Rate 45 /min -July 31 12:00pm Respiratory rate 18 /min 09-22July 31, 019 11:37am Oxygen saturation by 96 % 95-100 July Pulse oximetry 11:37am BP Systolic 121 mm[Hg] 110-140 July 31 11:37am BP Diastolic 77 mm[Hg] 60-July 31 11:37am BMI (Body Mass Index) 39.8 kg/m2 July 312018 12:35pm Inhaled oxygen 28 % July 30 concentration 6:27pm Height 162.56 cm August 14, 2 019 9:36am Weight 104.94 kg August 14, 2 019 9:36am Body Temperature 97.3 [degF] 97.6-99.6 August 14, 2019 9:36am Heart Rate 58 /min -August 14, 2 019 9:36am Oxygen saturation by 97 % 95-100 August 142018 Pulse oximetry 9:36am BP Systolic 130 mm[Hg] 110-140 August 14, 2 019 9:38am BP Diastolic 65 mm[Hg] 60-90 August 14, 2 019 9:38am BMI (Body Mass Index) 39.6 kg/m2 July 312018 9:36am Height 162.56 cm August 14, 2 019 10:57am Weight 146.51 kg August 14, 2 019 10:57am Body Temperature 97.2 [degF] 97.6-99.6 August 14, 2019 10:57am Heart Rate 60 /min 60-August 14, 2 019 10:57am Respiratory rate 16 /min -August 14, 2019 10:57am Oxygen saturation by 93 % 95-100 August 142018 Pulse oximetry 10:57am BP Systolic 132 mm[Hg] 110-140 August 14, 2 019 10:57am BP Diastolic 82 mm[Hg] 60-90 August 14, 2 019 10:57am BMI (Body Mass Index) 55.4 kg/m2 July 312018 10:57am Height 168 cm August 31 11:22am Weight 108.21 kg August 31 11:22am Body Temperature 98.7 [degF] 97.6-99.6 August 31, 2 019 4:00pm Heart Rate 76 /min 60-August 31, 4:00pm Respiratory rate 20 /min -August 31, 2 019 4:00pm Oxygen saturation by 92 % 95-100 August Pulse oximetry 4:00pm BP Systolic 131 mm[Hg] 110-140 August 31, 4:00pm BP Diastolic 56 mm[Hg] 60-90 August 31, 4:00pm BMI (Body Mass Index) 38.3 kg/m2 August 312018 11:22am Inhaled oxygen 28 % August 31 concentration 2:37am
--- NOTE | 2019-08-31 21:26 | Cardiology Report ---
APPROVED REPORT EXAM: Comprehensive 2D, Doppler, and color-flow Echocardiogram System Software Developer: Lindsey Harvey RDCS Ht: 5 ft 6 in Wt: 235lbs BSA: 2.14 BP: 94/44 mmHg Indications: COPD, CAD, Hyperlipidemia, Hypertension/HDD,SEPSIS,ELEVATED TROPONIN,CHF 2D Dimensions LVOT 1.86 cm (M/F) 1.5-2.5 M-Mode Dimensions RVDd 3.46 cm (0.9-2.6)LVDd 5.17 cm (3.5-5.7) LVDs 4.07 cm (3.5-5.7)IVSd 1.25 cm (0.6-1.1) PWd 0.84 cm (0.6-1.1)EF (Teich) 43.00% FS 21.30% EDV (Teich) 127.80 mL ESV (Teich) 72.90 mL LV Diastology E/A Ratio 0.74 Mitral Valve MV A Velocity 95.00 (40-130 cm/s) Left Ventricle Left atrium is mildly enlarged, left ventricle is normal size, mild concentric left ventricular hypertrophy, visually estimated ejection fraction 55% with no regional wall motion abnormality, grade 1 diastolic dysfunction seen without tissue Doppler evidence of raise left atrial pressure. Right Ventricle Right atrium and right ventricular mildly enlarged with normal contractility. Aortic Valve Aortic valve is minimally thickened and fibrosed, there is no aortic stenosis aortic insufficiency. Mitral Valve Mitral valve is grossly normal, there is mild mitral regurgitation. Tricuspid Valve Tricuspid valve is grossly normal, there is mild tricuspid regurgitation, calculated right ventricular systolic pressure is 52mmHg consistent with moderately elevated right ventricular systolic pressure. Pulmonic Valve Pulmonic valve is poorly visualized. Great Vessels Aortic root is normal size. Pericardium No significant pericardial effusion noted. Conclusion 1. Mildly enlarged left atrium, normal left ventricular size, mild concentric left ventricular hypertrophy, visually estimated ejection fraction 55% with no regional wall motion abnormality, grade 1 diastolic dysfunction seen without tissue Doppler evidence of raise left atrial pressure. 2. Mildly enlarged right ventricle with normal contractility. 3. Mild mitral and tricuspid regurgitation, calculated right ventricular systolic pressure is 52 mmHg consistent with moderately elevated right ventricular systolic pressure. 4. No significant pericardial effusion noted, inferior vena cava is not well-visualized. Electronically signed by : Khalif Hutchinson, 08/31/2019 21:26:20
--- NOTE | 2019-09-01 07:11 | Progress Note ---
Subjective Date: 09/01/19 Time: 07:08 Principal diagnosis: Dizziness Interval history: 59-year-old white female in bed in no acute distress. Some shortness of breath with conversation. Still complaining of dizziness when up out of bed. Review of blood pressure yesterday shows improvement into the 130s systolic. Exam Vital signs and Labs for Last 24 Hours: Temp Pulse Resp BP Pulse Ox 98.7 F 78 17 134/70 93 L 09/01/19 04:00 09/01/19 06:09 09/01/19 04:00 09/01/19 04:00 09/01/19 06:09 Laboratory Results - last 24 hr 08/31/19 06:05: Sodium 143, Potassium 4.7 D, Chloride 110 H, Carbon Dioxide 18 L D, Anion Gap 19.7 H, BUN 17, Creatinine 1.35 H, Estimated Creat Clear 77, Estimated GFR 40 L, Est GFR ( Amer) 49 L, Glucose 85 D, Calcium 8.6 I & O for Last 24 hours: Intake & Output 08/29/19 08/30/19 08/31/19 09/01/19 11:59 11:59 11:59 11:59 Intake Total 5373 / 5373 360 / 360 Output Total 1725 / 1725 Balance 3648 / 3648 360 / 360 Weight 238 lb 8.995 oz 238 lb 8.995 oz - *Routine HEENT Exam Head: Present: normocephalic Eye: Present: EOMI, PERRL ENT: Present: mucous membranes moist - *Routine Respiratory Exam Present: decreased breath sounds, wheezes. Absent: accessory muscle use, rales, rhonchi Comments: Diffuse expiratory wheezing noted. - *Routine Cardiovascular Exam Present: RRR. Absent: murmur, gallop, rubs - *Routine Extremities Exam Absent: edema, calf tenderness - *Routine Neurological Exam Present: alert, oriented X3, moving all extremities Progress Note: A&P (1) Dizziness Status: Acute Current Visit: Yes (2) Syncope Status: Acute Current Visit: Yes (3) Coronary artery disease Status: Chronic Current Visit: Yes (4) Elevated troponin Status: Acute Current Visit: Yes (5) Tobacco use disorder Status: Chronic Current Visit: No (6) Diastolic dysfunction Status: Chronic Current Visit: No (7) Septic shock Status: Acute Current Visit: Yes (8) Syncope and collapse Status: Acute Current Visit: Yes (9) Obesity (BMI 30-39.9) Status: Acute Current Visit: Yes Assessment and Plan for All Diagnoses:: 1. Hypotension, resolved. 2. Still with dizziness with standing but no arrhythmias noted on telemetry. 3. Sepsis, treatment per PCP 4. Hypertensive heart disease, medical therapy (metoprolol, losartan, lasix and spironolactone) on hold due to dizziness. Will restart when SBP > 150 mm Hg. 5. CKD, improved with IV fluids 6. Elevated troponins secondary to sepsis and demand ischemia related to syncope/hypotension. Echo this admission shows preserved left ventricular ejection fraction.
--- NOTE | 2019-09-01 08:34 | Progress Note ---
Internal Medicine - PN: Subj *Date: 09/01/19 *Time: 08:44 Interval history: 59-year-old female patient sitting up in bed this morning, reports decreased shortness of air, states she is breathing breathing easier now, oxygen at 3 L per nasal cannula. Left upper extremity PICC line has been placed and verified for use per radiology. Exam Vital signs and Labs for Last 24 Hours: Temp Pulse Resp BP Pulse Ox 98.0 F 80 22 109/47 L 92 L 09/01/19 08:00 09/01/19 08:00 09/01/19 08:00 09/01/19 08:00 09/01/19 08:00 I & O for Last 24 hours: Intake & Output 08/29/19 08/30/19 08/31/19 09/01/19 23:59 23:59 23:59 23:59 Intake Total 3960 / 4182 1773 / 1773 0 / 0 Output Total 1725 / 1725 Balance 3960 / 4182 48 / 48 0 / 0 Weight 235 lb 8 oz 238 lb 8.995 oz 238 lb 8.995 oz - Constitutional no acute distress - *Routine HEENT Exam Head: Present: normocephalic, atraumatic Eye: Present: EOMI, PERRL, normal accommodation ENT: Present: mucous membranes moist - *Routine Neck Exam Present: full ROM. Absent: JVD, tracheal deviation - *Routine Respiratory Exam Present: wheezes. Absent: accessory muscle use, rales - *Routine Cardiovascular Exam Present: RRR, murmur - *Routine Abdominal Exam Present: soft, normoactive bowel sounds. Absent: tenderness, firm - *Routine Extremities Exam Present: full ROM, pulses intact. Absent: calf tenderness - Routine Back/Spine/Pelvis Exam Back/Spine: Present: full ROM. Absent: CVA tenderness - *Routine Skin Exam Present: intact. Absent: cyanosis, erythema - *Routine Neurological Exam Present: alert, oriented X3, CN II-XII intact. Absent: pronator drift, altered mental status - Routine Psychiatric Exam Present: normal affect, normal thought process. Absent: suicidal ideation, homicidal ideation Assessment and Plan (1) Dizziness Current visit: Yes Status: Acute Category: Medical Code(s): R42 - Dizziness and giddiness (2) Syncope Current visit: Yes Status: Acute Category: Medical Code(s): R55 - Syncope and collapse (3) Coronary artery disease Current visit: Yes Status: Chronic Category: Medical Code(s): I25.10 - Atherosclerotic heart disease of [place] coronary artery without angina pectoris (4) Elevated troponin Current visit: Yes Status: Acute Category: Medical Code(s): R74.8 - Abnormal levels of other serum enzymes (5) Tobacco use disorder Current visit: No Status: Chronic Category: Medical Code(s): F17.200 - Nicotine dependence, unspecified, uncomplicated (6) Diastolic dysfunction Current visit: No Status: Chronic Category: Medical Code(s): I51.9 - Heart disease, unspecified (7) Septic shock Current visit: Yes Status: Acute Category: Medical Code(s): A41.9 - Sepsis, unspecified organism; R65.21 - Severe sepsis with septic shock (8) Syncope and collapse Current visit: Yes Status: Acute Category: Medical Code(s): R55 - Syncope and collapse (9) Obesity (BMI 30-39.9) Current visit: Yes Status: Acute Category: Medical Code(s): E66.9 - Obesity, unspecified (10) Pneumonia Current visit: No Status: Acute Category: Medical Code(s): J18.9 - Pneumonia, unspecified organism - Assessment and plan all Dx Assessment and Plan for all problems:: Rounded with Dr. Chairez, all orders per Dr. Chairez Cardiology has seen and recommends: 1. Hypotension, resolved. 2. Still with dizziness with standing but no arrhythmias noted on telemetry. 3. Sepsis, treatment per PCP 4. Hypertensive heart disease, medical therapy (metoprolol, losartan, lasix and spironolactone) on hold due to dizziness. Will restart when SBP > 150 mm Hg. 5. CKD, improved with IV fluids 6. Elevated troponins secondary to sepsis and demand ischemia related to syncope/hypotension. Echo this admission shows preserved left ventricular ejection fraction. 1. We will continue current antibiotic regimen 2. Sputum culture ordered
[2019-09-01 15:21] LABS: Calcium 8.9 mg/dL (8.5-10.1)
--- NOTE | 2019-09-01 16:17 | Pharmacy Consult Notes ---
- Pharmacy Consult Date: 09/01/19 Time: 16:15 Referring provider: DR. PETERSON Reason for Consult:: VANCOMYCIN LEVEL Allergies and ADEs:: Allergies Allergy/AdvReac Type Severity Reaction Status Date / Time Cephalosporins Allergy RASH Verified 08/31/19 08:22 erythromycin base Allergy Hives Verified 08/31/19 08:22 minocycline Allergy RASH Verified 08/31/19 08:22 penicillin G Allergy Hives Verified 08/31/19 08:22 Sulfa (Sulfonamide Allergy RASH Verified 08/31/19 08:22 Antibiotics) Home Medications:: Home Medications Medication Instructions Recorded Confirmed Type budesonide-formoterol HFA 80 2 puff INHALATION BID 08/25/18 08/31/19 History mcg-4.5 mcg/actuation aerosol inhaler montelukast 10 mg tablet 10 mg PO HS 30 Days #30 tab 08/25/18 08/31/19 History losartan 50 mg tablet 50 mg PO DAILY #90 tab 09/25/18 08/31/19 Rx fluticasone propionate 50 2 spray INTRANASAL DAILY #16 g 10/23/18 08/31/19 Rx mcg/actuation nasal spray,suspension albuterol sulfate HFA 90 2 inh INHALATION TID PRN #18 g 11/19/18 08/31/19 Rx mcg/actuation aerosol inhaler spironolactone 50 mg tablet 50 mg PO DAILY #90 tab 03/12/19 08/31/19 Rx Famotidine [Acid Director [employer]] 20 mg PO DAILY 05/03/19 08/31/19 History Trazodone HCl 200 mg PO HSP PRN 05/03/19 08/31/19 History gabapentin 800 mg tablet 800 mg PO QID #120 tab 06/09/19 08/31/19 Rx Levothyroxine Sodium 75 mcg PO DAILY 07/30/19 08/31/19 History [Levothyroxine 75mcg (0.075mg) Tab] Tizanidine HCl [Zanaflex 4mg 4 mg PO BIDP PRN 07/30/19 08/31/19 History tab] Metoprolol Tartrate [Lopressor 25 mg PO DAILY #90 tab 07/31/19 08/31/19 Rx 25mg tablet] Potassium Chloride [Micro-K 10mEq 20 meq PO BID #60 capsule.er 07/31/19 08/31/19 Rx cap] Clindamycin HCl [Clindamycin HCl 300 mg PO Q8 08/31/19 08/31/19 History 300mg Cap] Furosemide [Furosemide 40MG tAB] 40 mg PO DAILY 08/31/19 08/31/19 History Ibuprofen [Ibuprofen 600mg 600 mg PO QIDP PRN 08/31/19 08/31/19 History Tablet] Omeprazole 40 mg PO DAILY 08/31/19 08/31/19 History Height: 1.68 m Weight: 108.21 kg Laboratory Results:: Laboratory Results - last 24 hr 09/01/19 14:38: Vancomycin Trough 14.5 09/01/19 14:38: Sodium 140, Potassium 3.0 L, Chloride 105, Carbon Dioxide 23 D, Anion Gap 15.0, BUN 15, Creatinine 1.11 H, Estimated Creat Clear 93, Estimated GFR 50 L, Est GFR ( Amer) 61 D, Glucose 190 H, Calcium 8.9 Medical History: Reports:: Anxiety, Atherosclerotic Heart Disease, Congestive Heart Failure (2018), Chronic Obstructive Pulmonary Disease (COPD), Coronary Artery Disease, Depression, Gastroesophageal Reflux Disease(GERD), Hypertension, Lung Disease, MRSA (Lungs - 2017) Denies:: Cancer, Diabetes Mellitus Type 1, Diabetes Mellitus Type 2, Internal Pacemaker, Seizures Assessment and Plan (1) Dizziness Current visit: Yes Status: Acute Category: Medical Code(s): R42 - Dizziness and giddiness (2) Syncope Current visit: Yes Status: Acute Category: Medical Code(s): R55 - Syncope and collapse (3) Coronary artery disease Current visit: Yes Status: Chronic Category: Medical Code(s): I25.10 - Atherosclerotic heart disease of [place] coronary artery without angina pectoris (4) Elevated troponin Current visit: Yes Status: Acute Category: Medical Code(s): R74.8 - Abnormal levels of other serum enzymes (5) Tobacco use disorder Current visit: No Status: Chronic Category: Medical Code(s): F17.200 - Nicotine dependence, unspecified, uncomplicated (6) Diastolic dysfunction Current visit: No Status: Chronic Category: Medical Code(s): I51.9 - Heart disease, unspecified (7) Septic shock Current visit: Yes Status: Acute Category: Medical Code(s): A41.9 - Sepsis, unspecified organism; R65.21 - Severe sepsis with septic shock (8) Syncope and collapse Current visit: Yes Status: Acute Category: Medical Code(s): R55 - Syncope and collapse (9) Obesity (BMI 30-39.9) Current visit: Yes Status: Acute Category: Medical Code(s): E66.9 - Obesity, unspecified - Assessment and plan all Dx Assessment and Plan for all problems:: BASED ON PATIENT'S VANCOMYCIN TROUGH LEVEL OF 14.5 MCG/ML, RECOMMENDED PATIENT CONTINUE WITH VANCOMYCIN 2000 MG Q24H.
--- NOTE | 2019-09-02 09:34 | Progress Note ---
Internal Medicine - PN: Subj *Date: 09/02/19 *Time: 09:31 Interval history: doing better but still on o2 - Exam Vital signs and Labs for Last 24 Hours: Temp Pulse Resp BP Pulse Ox 98.3 F 72 17 123/49 L 97 09/02/19 08:00 09/02/19 08:00 09/02/19 08:00 09/02/19 08:00 09/02/19 08:00 Laboratory Results - last 24 hr 09/01/19 14:38: Vancomycin Trough 14.5 09/01/19 14:38: Sodium 140, Potassium 3.0 L, Chloride 105, Carbon Dioxide 23 D, Anion Gap 15.0, BUN 15, Creatinine 1.11 H, Estimated Creat Clear 93, Estimated GFR 50 L, Est GFR ( Amer) 61 D, Glucose 190 H, Calcium 8.9 I & O for Last 24 hours: Intake & Output 08/30/19 08/31/19 09/01/19 09/02/19 11:59 11:59 11:59 11:59 Intake Total 5373 / 5373 600 / 600 1465 / 1465 Output Total 1725 / 1725 300 / 300 Balance 3648 / 3648 600 / 600 1165 / 1165 Weight 238 lb 8.995 oz 238 lb 8.995 oz 236 lb 4 oz Microbiology Reports for the Last 24 Hours: Microbiology 08/30/19 19:20 Blood Blood Culture - Preliminary Gram Positive Cocci 09/02/19 02:42 Sputum - Expectorated Sputum Gram Stain - Final 08/30/19 19:20 Blood Blood Culture - Preliminary NO GROWTH AFTER 48 HOURS - Constitutional no acute distress, obese - *Routine HEENT Exam Head: Present: normocephalic Eye: Present: EOMI, PERRL ENT: Present: mucous membranes dry - *Routine Neck Exam Present: supple. Absent: JVD - *Routine Respiratory Exam Present: decreased breath sounds - *Routine Cardiovascular Exam Present: RRR, murmur - *Routine Abdominal Exam Present: soft - *Routine Extremities Exam Absent: calf tenderness - *Routine Skin Exam Present: intact - *Routine Neurological Exam Present: alert, CN II-XII intact - Routine Psychiatric Exam Present: normal affect Assessment and Plan (1) Dizziness Current visit: Yes Status: Acute Category: Medical Code(s): R42 - Dizziness and giddiness (2) Syncope Current visit: Yes Status: Acute Category: Medical Code(s): R55 - Syncope and collapse (3) Coronary artery disease Current visit: Yes Status: Chronic Category: Medical Code(s): I25.10 - Atherosclerotic heart disease of [place] coronary artery without angina pectoris (4) Elevated troponin Current visit: Yes Status: Acute Category: Medical Code(s): R74.8 - Abnormal levels of other serum enzymes (5) Tobacco use disorder Current visit: No Status: Chronic Category: Medical Code(s): F17.200 - Nicotine dependence, unspecified, uncomplicated (6) Diastolic dysfunction Current visit: No Status: Chronic Category: Medical Code(s): I51.9 - Heart disease, unspecified (7) Septic shock Current visit: Yes Status: Acute Category: Medical Code(s): A41.9 - Sepsis, unspecified organism; R65.21 - Severe sepsis with septic shock (8) Syncope and collapse Current visit: Yes Status: Acute Category: Medical Code(s): R55 - Syncope and collapse (9) Obesity (BMI 30-39.9) Current visit: Yes Status: Acute Category: Medical Code(s): E66.9 - Obesity, unspecified (10) HCAP (healthcare-associated pneumonia) Current visit: Yes Status: Acute Category: Medical Code(s): J18.9 - Pneumonia, unspecified organism
[2019-09-02 10:16] LABS: Eosinophils # 0.1 K/mm3 (0.0-0.4); Eosinophils % 0.5 % (0.1-12.0); Hematocrit 34.5 % (37.0-47.0); Lymphocytes # 1.2 K/mm3 (0.7-4.5); Lymphocytes % 5.1 % (10-50); Mean Corpuscular HGB Conc 31.7 g/dL (31.8-35.4); Mean Corpuscular Volume 100.7 fl (81-99); Mean Platelet Volume 8.3 fl (7.4-10.4); Monocytes # 0.4 K/mm3 (0.1-1.0); Monocytes % 1.9 % (1.7-9.3); Neutrophils # 21.1 K/mm3 (1.8-7.8); Neutrophils % 92.4 % (37.0-80.0); Platelet Count 254 K/mm3 (142-424); Red Blood Count 3.43 M/mm3 (4.20-5.40); Red Cell Distribution Width 13.1 % (11.5-17.5); White Blood Count 22.8 K/mm3 (4.8-10.8)
[2019-09-02 10:27] LABS: Anion Gap 13.5 mEq/L (5-15); Calcium 8.7 mg/dL (8.5-10.1)
[2019-09-02 11:30] LABS: Lymphocytes % 7 % (10-50); Monocytes % 4 % (2-9); Neutrophils % 89 % (42-76); Total Cells Counted 100
[2019-09-02 11:31] LABS: Anisocytosis 1+; Macrocytosis 1+; Stomatocytes 1+
--- NOTE | 2019-09-03 08:51 | Discharge Summary ---
General - General Admission date:: 08/30/19 Discharge date: 09/03/19 HPI HPI: this pt presented to the ed with sob -T HAD TO BE GOTTEN OUT OF FRIEND'S VEHICLE PER ED AND UTC STAFF. FRIEND REPORTS PT COME OVER TO HER HOUSE AND COLLAPSED BEHIND HER CAR. FRIEND REPORTS PT EVENTUALLY WAS ABLE TO CRAWL INTO THE VEHICLE FOR TRANSPORTATION TO THE ED. PT LETHARGIC WHEN STAFF HAD TO LIFT HER OUT OF THE CAR AND INTO THE WHEELCHAIR. PT ONLY MUMBLED ONCE IN THE ED AND ASKED QUESTIONS BY STAFF. AFTER ADMINISTRATION OF NARCAN PT WAS A&O X4. ONCE A&O PT REPORTS THAT SHE HAS BEEN EXPERIENCING DIZZINESS, LIGHTHEADED, SOA SINCE Saturday Patient says that she is feeling lightheaded and dizzy today and passed out at a friend's house. Nursing staff reported that she was unresponsive and had to pull her out of her friend's car and they administered Narcan prior to my arrival and when I arrived she is awake and alert and speaking. However, she denies using any street drugs. She says that she is on Lortab for extracted teeth 6 days ago and only took 2 Lortab today. She denies using any other prescription pain relievers for any other sedating medications. She says that today she coughed up a large amount of green phlegm. She is currently denying any pain upon my arrival but developed chest pain during my interview. Denies leg pain or swelling. She does complain of shortness of breath. She denies fever. Denies abdominal pain, vomiting, or diarrhea. Hospital Course Hospital Course: 9-year-old female patient sleeping quietly in bed, awakens to verbal stimuli. Reports she is feeling a lot better denies shortness of air or chest pain will discharge home today on Levaquin 750 mg p.o. x8 days and steroiud taper. Will see in office next week. She is agreeable to this. 59 YOF presented to the ed with sob -T HAD TO BE GOTTEN OUT OF FRIEND'S VEHICLE PER ED AND UTC STAFF. FRIEND REPORTS PT COME OVER TO HER HOUSE AND COLLAPSED BEHIND HER CAR. FRIEND REPORTS PT EVENTUALLY WAS ABLE TO CRAWL INTO THE VEHICLE FOR TRANSPORTATION TO THE ED. PT LETHARGIC WHEN STAFF HAD TO LIFT HER OUT OF THE CAR AND INTO THE WHEELCHAIR. PT ONLY MUMBLED ONCE IN THE ED AND ASKED QUESTIONS BY STAFF. AFTER ADMINISTRATION OF NARCAN PT WAS A&O X4. ONCE A&O PT REPORTS THAT SHE HAS BEEN EXPERIENCING DIZZINESS, LIGHTHEADED, SOA SINCE Saturday Patient says that she is feeling lightheaded and dizzy today and passed out at a friend's house. Nursing staff reported that she was unresponsive and had to pull her out of her friend's car and they administered Narcan prior to my arrival and when I arrived she is awake and alert and speaking. However, she denies using any street drugs. She says that she is on Lortab for extracted teeth 6 days ago and only took 2 Lortab today. She denies using any other prescription pain relievers for any other sedating medications. She says that today she coughed up a large amount of green phlegm. She is currently denying any pain upon my arrival but developed chest pain during my interview. Denies leg pain or swelling. She does complain of shortness of breath. She denies fever. Denies abdominal pain, vomiting, or diarrhea (Per Dr. Chairez). 08/30 CXR: IMPRESSION: Probable right perihilar right lower lobe pneumonia Dictated by: Dr. Lyn, 09/03 CXR: IMPRESSION: Improvement in CHF. PICC line remains in good position Dictated by: Dr. Li, 08/30 2-D ECHO: Conclusion 1. Mildly enlarged left atrium, normal left ventricular size, mild concentric left ventricular hypertrophy, visually estimated ejection fraction 55% with no regional wall motion abnormality, grade 1 diastolic dysfunction seen without tissue Doppler evidence of raise left atrial pressure. 2. Mildly enlarged right ventricle with normal contractility. 3. Mild mitral and tricuspid regurgitation, calculated right ventricular systolic pressure is 52 mmHg consistent with moderately elevated right ventricular systolic pressure. 4. No significant pericardial effusion noted, inferior vena cava is not well-visualized. Electronically signed by : Khalif Hutchinson Room air sats currently are 94% on room air. During her stay she has received levofloxacin and vancomycin IV and blood cultures x2 sputum culture negative. She will be discharged home today on levofloxacin and a steroid taper, appointment Friday 09/07. Objective Vital signs: Temp Pulse Resp BP Pulse Ox 98.5 F 60 17 145/65 H 92 L 09/03/19 04:00 09/03/19 05:51 09/03/19 04:00 09/03/19 04:00 09/03/19 05:51 no acute distress - *Routine HEENT Exam Head: Present: normocephalic, atraumatic Eye: Present: EOMI, PERRL, normal accommodation ENT: Present: mucous membranes moist - *Routine Neck Exam Present: full ROM, JVD, trachea midline. Absent: tracheal deviation - *Routine Respiratory Exam Present: CTA bilaterally. Absent: rales - *Routine Cardiovascular Exam Present: murmur - *Routine Abdominal Exam Present: soft, normoactive bowel sounds. Absent: tenderness, firm - *Routine Extremities Exam Present: full ROM. Absent: calf tenderness - Routine Back/Spine/Pelvis Exam Back/Spine: Present: full ROM. Absent: CVA tenderness - *Routine Skin Exam Present: intact. Absent: erythema, jaundice - *Routine Neurological Exam Present: alert, oriented X3, CN II-XII intact. Absent: sensory deficit, altered mental status - Routine Psychiatric Exam Present: normal affect. Absent: suicidal ideation, homicidal ideation Results Labs on day of discharge: Labs from last 24 hours 09/02/19 09/02/19 10:05 10:05 WBC 22.8 H* RBC 3.43 L Hgb 11.0 L Hct 34.5 L MCV 100.7 H MCH 31.9 H MCHC 31.7 L RDW 13.1 Plt Count 254 MPV 8.3 Neut % (Auto) 92.4 H Lymph % (Auto) 5.1 L Vance % (Auto) 1.9 Eos % (Auto) 0.5 Baso % (Auto) 0.0 L Neut # (Auto) 21.1 H Lymph # (Auto) 1.2 Vance # (Auto) 0.4 Eos # (Auto) 0.1 Baso # (Auto) 0.0 Total Counted 100 Neutrophils % (Manual) 89 H Lymphocytes % (Manual) 7 L Monocytes % (Manual) 4 Platelet Estimate Normal Poikilocytosis 1+ Anisocytosis 1+ Macrocytosis 1+ Stomatocytes 1+ Sodium 138 Potassium 3.5 Chloride 106 Carbon Dioxide 22 Anion Gap 13.5 BUN 17 Creatinine 1.03 H Estimated Creat Clear 99 Estimated GFR 55 L Est GFR ( Amer) 66 Glucose 194 H Calcium 8.7 Preliminary micro results at discharge 08/30/19 19:20 Blood Culture - Preliminary Blood Staphylococcus epidermidis 08/30/19 19:20 Blood Culture - Preliminary Blood NO GROWTH AFTER 48 HOURS - Additional Comments Rounded with Dr. Chairez, all orders per Dr. Chairez 1. We will discharge home today 2. Levaquin 750 mg x 8 days 3. Steroid taper 4. Appointment Friday 09/07 DS: Diagnosis - Discharge Diagnosis (1) Dizziness Status: Acute (2) Syncope Status: Acute (3) Coronary artery disease Status: Chronic (4) Elevated troponin Status: Acute (5) Tobacco use disorder Status: Chronic (6) Diastolic dysfunction Status: Chronic (7) Septic shock Status: Acute (8) Syncope and collapse Status: Acute (9) Obesity (BMI 30-39.9) Status: Acute (10) HCAP (healthcare-associated pneumonia) Status: Acute Discharge Plan - Patient Discharge Instructions ACTIVITY: Continue current activity DIET: continue same diet Patient Instructions: DI for Syncope in Adults (Fainting), Pneumonia-Adult, Septic Shock, DI for Hypokalemia - Follow up Plan Follow up with: Sadie Mathis APRN [Nurse Practitioner] - 09/07/19 Disposition: Home, Self-Assisted Medications: Home Medications Medication Instructions Recorded Confirmed Type budesonide-formoterol HFA 80 2 puff INHALATION BID 08/25/18 08/31/19 History mcg-4.5 mcg/actuation aerosol inhaler montelukast 10 mg tablet 10 mg PO HS 30 Days #30 tab 08/25/18 08/31/19 History losartan 50 mg tablet 50 mg PO DAILY #90 tab 09/25/18 08/31/19 Rx fluticasone propionate 50 2 spray INTRANASAL DAILY #16 g 10/23/18 08/31/19 Rx mcg/actuation nasal spray,suspension albuterol sulfate HFA 90 2 inh INHALATION TID PRN #18 g 11/19/18 08/31/19 Rx mcg/actuation aerosol inhaler spironolactone 50 mg tablet 50 mg PO DAILY #90 tab 03/12/19 08/31/19 Rx Famotidine [Acid Extension Educator] 20 mg PO DAILY 05/03/19 08/31/19 History Trazodone HCl 200 mg PO HSP PRN 05/03/19 08/31/19 History gabapentin 800 mg tablet 800 mg PO QID #120 tab 06/09/19 08/31/19 Rx Levothyroxine Sodium 75 mcg PO DAILY 07/30/19 08/31/19 History [Levothyroxine 75mcg (0.075mg) Tab] Tizanidine HCl [Zanaflex 4mg 4 mg PO BIDP PRN 07/30/19 08/31/19 History tab] Metoprolol Tartrate [Lopressor 25 mg PO DAILY #90 tab 07/31/19 08/31/19 Rx 25mg tablet] Potassium Chloride [Micro-K 10mEq 20 meq PO BID #60 capsule.er 07/31/19 08/31/19 Rx cap] Clindamycin HCl [Clindamycin HCl 300 mg PO Q8 08/31/19 08/31/19 History 300mg Cap] Furosemide [Furosemide 40MG tAB] 40 mg PO DAILY 08/31/19 08/31/19 History Ibuprofen [Ibuprofen 600mg 600 mg PO QIDP PRN 08/31/19 08/31/19 History Tablet] Omeprazole 40 mg PO DAILY 08/31/19 08/31/19 History levoFLOXacin [Levofloxacin 750MG 750 mg PO DAILY 8 Days #8 tab 09/03/19 Rx Tablet] predniSONE [Prednisone 10mg Tab 10 mg PO DAILY 23 Days #23 pack 09/03/19 Rx Dose-Pack] Prescriptions/Medication Reconciliation: New predniSONE [Prednisone 10mg Tab Dose-Pack] 10 mg PO DAILY 23 Days #23 pack levoFLOXacin [Levofloxacin 750MG Tablet] 750 mg PO DAILY 8 Days #8 tab Continued montelukast 10 mg tablet 10 mg PO HS 30 Days #30 tab budesonide-formoterol HFA 80 mcg-4.5 mcg/actuation aerosol inhaler 2 puff INHALATION BID losartan 50 mg tablet 50 mg PO DAILY #90 tab fluticasone propionate 50 mcg/actuation nasal spray,suspension 2 spray INTRANASAL DAILY #16 g albuterol sulfate HFA 90 mcg/actuation aerosol inhaler 2 inh INHALATION TID PRN #18 g PRN Reason: Shortness Of Breath gabapentin 800 mg tablet 800 mg PO QID #120 tab spironolactone 50 mg tablet 50 mg PO DAILY #90 tab Trazodone HCl 200 mg PO HSP PRN PRN Reason: Insomnia Levothyroxine Sodium [Levothyroxine 75mcg (0.075mg) Tab] 75 mcg PO DAILY Metoprolol Tartrate [Lopressor 25mg tablet] 25 mg PO DAILY #90 tab Potassium Chloride [Micro-K 10mEq cap] 20 meq PO BID #60 capsule.er Furosemide [Furosemide 40MG tAB] 40 mg PO DAILY Ibuprofen [Ibuprofen 600mg Tablet] 600 mg PO QIDP PRN PRN Reason: pain Famotidine [Acid Extension Educator] 20 mg PO DAILY Tizanidine HCl [Zanaflex 4mg tab] 4 mg PO BIDP PRN PRN Reason: Muscle Spasm Clindamycin HCl [Clindamycin HCl 300mg Cap] 300 mg PO Q8 Omeprazole 40 mg PO DAILY - Problem Reconciliation Problems Reviewed?: Yes
== END 2019-09-03 10:06 | disposition home or self-care (01) | DRG 194 ==
LOC: 2ND 17:32 → ER 17:32 → OBSVTOIN 21:22 → 2ND 21:23
PROVIDERS: ADMIT Emergency Medicine; ATTEND Emergency Medicine
CPT/HCPCS: 36415; 36569; 71010; 71045; 80048; 80053; 80202; 80305; 80329; 81001; 82962; 83605; 83880; 84484; 85007; 85025; 87040; 87070; 87077; 87186; 87205; 93005; 93306; 94640; 94760; 94761; 96365; 96366; 96367; 96375; 99285; C1751; J1956; J2310; J3370

== ENCOUNTER → 2019-10-12 13:33 | Outpatient (CLI) | payer BC, SELFPAY ==
--- NOTE | 2019-10-12 13:48 | CT_ITS ---
PROCEDURE: CT CHEST WO/W CON CLINCAL INDICATION: ANEMIA Anemia, enlarged lymph nodes in chest COMPARISON: CT ANGIO CHEST from 07/30/2019 TECHNIQUE: IV Contrast: 75ml Optiray 350 Axial images obtained with sagittal and coronal reformats. All CT scans at the facility use one or more dose reduction, viz: automated exposure control, ma/kV adjustment per patient size (including targeted exams where dose is matched to indication, i.e. head), or iterative reconstruction technique. FINDINGS: There are scattered small mediastinal lymph nodes once again noted. Small amount fluid is present in the superior recess of the pericardium. The mediastinal lymph nodes do not appear significantly changed. There is a small hiatal hernia. No axillary adenopathy. There is patchy ground-glass diffuse opacification once again noted but not quite as prominent as the previous exam. No central obstructing lesions. There is trace right-sided effusion slightly smaller. There is cardiomegaly. There is also improved inspiration compared to the previous exam. IMPRESSION: 1. No change in the mild mediastinal adenopathy. 2. Cardiomegaly with mild diffuse ground-glass opacification of the lungs which is shown some improvement compared to the previous exam. This is nonspecific and could be related to edema, infection, or interstitial disease. Trace right-sided effusion has slightly improved. The Dictated by: Paresh Li MD 10/13/2019 11:30 Electronically signed by Paresh Li MD in [facility] 10/13/2019 11:30
[2019-10-12 14:04] LABS: Blood Urea Nitrogen 10 mg/dL (7-18); Estimated Glomerular Filt Rate 64 ml/min (>60); GFR (African American) 78 ML/MIN (>60)
[2019-10-12 14:17] LABS: Basophils % 0.4 % (0.1-2.0); Eosinophils # 0.2 K/mm3 (0.0-0.4); Hematocrit 40.2 % (37.0-47.0); Hemoglobin 12.3 g/dL (12.2-16.2); Lymphocytes # 1.6 K/mm3 (0.7-4.5); Lymphocytes % 20.7 % (10-50); Mean Corpuscular HGB Conc 30.7 g/dL (31.8-35.4); Mean Corpuscular Hemoglobin 30.5 pg (27.0-31.2); Mean Corpuscular Volume 99.5 fl (81-99); Mean Platelet Volume 8.2 fl (7.4-10.4); Monocytes # 0.4 K/mm3 (0.1-1.0); Monocytes % 4.7 % (1.7-9.3); Neutrophils # 5.5 K/mm3 (1.8-7.8); Neutrophils % 72.1 % (37.0-80.0); Platelet Count 384 K/mm3 (142-424); Red Blood Count 4.04 M/mm3 (4.20-5.40); Red Cell Distribution Width 14.1 % (11.5-17.5); White Blood Count 7.6 K/mm3 (4.8-10.8)
[2019-10-14 07:40] LABS: Immunoglobulin M, Qn 312 mg/dL (26-217)
== END ==
PROVIDERS: PCP Emergency Medicine; Visit Provider Internal Medicine Medical Oncology
DX: D64.9 Anemia, unspecified (principal)
CPT/HCPCS: 36415; 71270; 82565; 82784; 84520; 85025; Q9967

== ENCOUNTER → 2019-11-04 15:25 | Outpatient (CLI) | payer BC, SELFPAY ==
[2019-11-04 21:05] LABS: Anion Gap 16.7 mEq/L (5-15); Blood Urea Nitrogen 16 mg/dL (7-18); Calcium 8.9 mg/dL (8.5-10.1); Carbon Dioxide 24 mmol/L (21.0-32.0); Chloride 102 mmol/L (98-107); Creatinine,Serum 1.23 mg/dL (0.55-1.02); Estimated Glomerular Filt Rate 45 ml/min (>60); GFR (African American) 54 ML/MIN (>60); Glucose 76 mg/dL (74-106); Potassium 3.7 mmoL/L (3.5-5.1); Sodium 139 mmol/L (136-145)
== END ==
PROVIDERS: Visit Provider Nurse Practitioner Family
DX: I10 Essential (primary) hypertension (principal); Z23 Encounter for immunization
CPT/HCPCS: 36415; 80048

== ENCOUNTER → 2020-01-15 07:59 | Outpatient (CLI) | payer BC, SELFPAY ==
--- NOTE | 2020-01-15 08:02 | US_ITS ---
PROCEDURE: US THYROID CLINICAL INDICATION: ACQUIRED HYPOTHYROIDISM, THYROID NODULE Tender thyroid COMPARISON: No exams were available for comparison FINDINGS: Right lobe: Right lobe is 3.7 x 1.5 x 1.5 cm. There is homogeneous echogenicity without discrete nodule Left lobe: 3.6 x 1.1 x 1.5 cm. Homogeneous echogenicity without discrete nodule Isthmus: Unremarkable Additional findings: IMPRESSION: Unremarkable thyroid ultrasound Dictated by: Paresh Li MD 01/15/2020 16:28 Electronically signed by Paresh Li MD in [facility] 01/15/2020 16:28
== END ==
PROVIDERS: PCP Emergency Medicine; Visit Provider Nurse Practitioner Family
DX: E03.9 Hypothyroidism, unspecified (principal); E04.1 Nontoxic single thyroid nodule
CPT/HCPCS: 76536

== ENCOUNTER → 2020-02-01 10:18 | Outpatient (POV) | payer BC, SELFPAY | PROVIDERS: PCP Emergency Medicine; Visit Provider Specialist | DX: G62.9 Polyneuropathy, unspecified (principal) | CPT/HCPCS: 95886; 95909 ==

== ENCOUNTER → 2020-02-11 09:13 | Outpatient (CLI) | payer BC, SELFPAY ==
[2020-02-11 09:31] LABS: Basophils # 0.1 K/mm3 (0-0.2); Basophils % 0.5 % (0.1-2.0); Eosinophils # 0.5 K/mm3 (0.0-0.4); Eosinophils % 2.5 % (0.1-12.0); Hematocrit 38.1 % (37.0-47.0); Hemoglobin 12.1 g/dL (12.2-16.2); Lymphocytes # 1.9 K/mm3 (0.7-4.5); Lymphocytes % 9.1 % (10-50); Mean Corpuscular HGB Conc 31.7 g/dL (31.8-35.4); Mean Corpuscular Hemoglobin 31.5 pg (27.0-31.2); Mean Corpuscular Volume 99.1 fl (81-99); Mean Platelet Volume 7.5 fl (7.4-10.4); Monocytes # 0.7 K/mm3 (0.1-1.0); Monocytes % 3.2 % (1.7-9.3); Neutrophils % 84.7 % (37.0-80.0); Platelet Count 415 K/mm3 (142-424); Red Blood Count 3.85 M/mm3 (4.20-5.40); Red Cell Distribution Width 14.2 % (11.5-17.5); White Blood Count 21.3 K/mm3 (4.8-10.8)
[2020-02-11 09:35] LABS: Chloride 106 mmol/L (98-107); MANUAL DIFFERENTIAL MANUAL DIFFERENTIAL (MANUAL DIFF); Potassium 4.1 mmoL/L (3.5-5.1); Sodium 135 mmol/L (136-145)
[2020-02-11 09:37] LABS: Blood Urea Nitrogen 10 mg/dl (7-17); Estimated Glomerular Filt Rate 86 ml/min (>60); GFR (African American) 104 ML/MIN (>60)
[2020-02-11 09:38] LABS: Alanine Aminotransferase 11 U/L (12-78); Albumin Level 3.6 g/dl (3.5-5.0); Albumin/Globulin Ratio 1.1 (1.1-1.8); Alkaline Phosphatase 71 U/L (38-126); Anion Gap 8.1 mEq/L (5-15); Aspartate Amino Transferase 28 U/L (14-36); Bilirubin,Total 0.4 mg/dl (0.2-1.3); Carbon Dioxide 25 mmol/L (22.0-30.0); Globulin 3.4 g/dL (1.3-3.2)
[2020-02-11 09:44] LABS: Calcium 9.9 mg/dl (8.4-10.2)
[2020-02-11 09:51] LABS: Eosinophils % 2 % (0-3); Lymphocytes % 11 % (10-50); Monocytes % 3 % (2-9); Neutrophils % 84 % (42-76); Platelet Estimate Slight Increase; RBC Morphology Normal; Total Cells Counted 100
[2020-02-11 09:58] LABS: Glucose 105 mg/dl (74-100)
[2020-02-11 10:14] LABS: Ferritin 230 ng/ml (11.1-264)
[2020-02-12 07:16] LABS: Iron 29 ug/dL (27-159); UIBC 236 ug/dL (131-425)
[2020-02-12 07:39] LABS: Iron Saturation 11 % (15-55)
== END ==
PROVIDERS: Visit Provider Internal Medicine Medical Oncology
DX: D64.9 Anemia, unspecified (principal)
CPT/HCPCS: 36415; 80053; 82728; 83540; 83550; 85007; 85025

== ENCOUNTER → 2020-02-23 13:44 | Outpatient (CLI) | payer BC, SELFPAY ==
[2020-02-23 14:27] LABS: Basophils # 0.1 K/mm3 (0-0.2); Basophils % 0.8 % (0.1-2.0); Eosinophils # 0.2 K/mm3 (0.0-0.4); Eosinophils % 2.8 % (0.1-12.0); Hematocrit 35.9 % (37.0-47.0); Hemoglobin 11.7 g/dL (12.2-16.2); Lymphocytes # 1.5 K/mm3 (0.7-4.5); Lymphocytes % 22.3 % (10-50); Mean Corpuscular HGB Conc 32.7 g/dL (31.8-35.4); Mean Corpuscular Hemoglobin 32.5 pg (27.0-31.2); Mean Corpuscular Volume 99.3 fl (81-99); Mean Platelet Volume 7.5 fl (7.4-10.4); Monocytes # 0.3 K/mm3 (0.1-1.0); Monocytes % 4.2 % (1.7-9.3); Neutrophils # 4.7 K/mm3 (1.8-7.8); Neutrophils % 69.8 % (37.0-80.0); Platelet Count 332 K/mm3 (142-424); Red Blood Count 3.62 M/mm3 (4.20-5.40); Red Cell Distribution Width 13.8 % (11.5-17.5); White Blood Count 6.7 K/mm3 (4.8-10.8)
[2020-02-23 17:08] LABS: Chloride 105 mmol/L (98-107); Potassium 4.2 mmoL/L (3.5-5.1); Sodium 138 mmol/L (136-145)
[2020-02-23 17:10] LABS: Alanine Aminotransferase 11 U/L (12-78); Aspartate Amino Transferase 26 U/L (14-36); Blood Urea Nitrogen 9 mg/dl (7-17); Estimated Glomerular Filt Rate 73 ml/min (>60); GFR (African American) 89 ML/MIN (>60)
[2020-02-23 17:11] LABS: Albumin Level 3.2 g/dl (3.5-5.0); Albumin/Globulin Ratio 1.1 (1.1-1.8); Alkaline Phosphatase 73 U/L (38-126); Anion Gap 7.2 mEq/L (5-15); Bilirubin,Total 0.7 mg/dl (0.2-1.3); Calcium 9.7 mg/dl (8.4-10.2); Carbon Dioxide 30 mmol/L (22.0-30.0); Globulin 2.9 g/dL (1.3-3.2); Glucose 96 mg/dl (74-100); Total Protein,Serum 6.1 g/dl (6.3-8.2)
[2020-02-23 17:47] LABS: Ferritin 219 ng/ml (11.1-264)
[2020-02-25 08:13] LABS: Iron 39 ug/dL (27-159); UIBC 187 ug/dL (131-425)
[2020-02-25 10:00] LABS: Iron Saturation 17 % (15-55)
[2020-02-25 12:25] LABS: Immunoglobulin M, Qn 312 mg/dL (26-217)
== END ==
PROVIDERS: Visit Provider Internal Medicine Medical Oncology
DX: D64.9 Anemia, unspecified (principal)
CPT/HCPCS: 36415; 80053; 82728; 82784; 83540; 83550; 85025

== ENCOUNTER → 2020-02-29 18:36 | Outpatient (CLI) | payer MEDICAID, SELFPAY ==
--- NOTE | 2020-02-29 18:45 | XR_ITS ---
PROCEDURE: XR ANKLE LT MIN 3V CLINICAL INDICATION: PAIN IN LEFT ANKLE AND JOINTS OF LEFT FOOT COMPARISON: No exams were available for comparison FINDINGS: On the AP view of the ankle there is a lucency noted at the tip of the medial malleolus which could be related to a nondisplaced avulsion fracture age indeterminate. Ankle mortise is preserved and the talar dome has an unremarkable appearance. IMPRESSION: Bony defect at the medial malleolus which could be related to an avulsion fracture age indeterminate Dictated by: Paresh Li MD 03/01/2020 07:04 Electronically signed by Paresh Li MD in [facility] 03/01/2020 07:04
--- NOTE | 2020-02-29 18:45 | XR_ITS ---
PROCEDURE: XR FOOT LT MIN 3V CLINICAL INDICATION: ACUTE PAIN OF LEFT FOOT COMPARISON: FTL3 FOOT-LT-3 VIEWS from 03/26/2016 FINDINGS: No fracture or dislocation. No lytic or blastic change. There is normal mineralization. There are mild osteoarthritic changes of the 1st metatarsophalangeal joint. Other findings:Small calcaneal spur with a separate calcific densities superficial to the spur nonspecific and not significantly changed. IMPRESSION: Minimal osteoarthritic change 1st MTP joint Dictated by: Paresh Li MD 03/01/2020 07:07 Electronically signed by Paresh Li MD in [facility] 03/01/2020 07:07
== END ==
PROVIDERS: PCP Nurse Practitioner Family; Visit Provider Nurse Practitioner Family
DX: M25.572 Pain in left ankle and joints of left foot (principal); M79.672 Pain in left foot
CPT/HCPCS: 73610; 73630

== ENCOUNTER → 2020-03-03 15:30 | Outpatient (CLI) | payer MEDICAID, SELFPAY ==
[2020-03-03 18:32] LABS: Coronavirus 19 IgG Antibody Negative (Negative); Coronavirus 19 IgM Antibody Negative (Negative)
== END ==
PROVIDERS: Visit Provider Nurse Practitioner Family
DX: Z03.818 Encounter for observation for suspected exposure to other biological agents ruled out (principal)
CPT/HCPCS: 36415; 86328

== ENCOUNTER → 2020-03-22 10:02 | Outpatient (CLI) | payer MEDICAID, SELFPAY ==
[2020-03-22 11:08] LABS: Blood Urea Nitrogen 13 mg/dl (7-17); Estimated Glomerular Filt Rate 64 ml/min (>60); GFR (African American) 78 ML/MIN (>60)
== END ==
PROVIDERS: Visit Provider Podiatrist
DX: S82.52XA Displaced fracture of medial malleolus of left tibia, initial encounter for closed fracture (principal); M19.071 Primary osteoarthritis, right ankle and foot; M19.072 Primary osteoarthritis, left ankle and foot
CPT/HCPCS: 36415; 82565; 84520

== ENCOUNTER → 2020-04-01 14:07 | Outpatient (CLI) | payer MEDICAID, SELFPAY ==
--- NOTE | 2020-04-01 14:07 | MR_ITS ---
PROCEDURE: MR ANKLE LT WO/W CON scratch CLINICAL INDICATION: ankle pain, and worsening along medial arch, medial malleolar region peroneal tendon tear, bony defect medial malleolus F/U FX. [id number]. ANKLE PAIN WORSE ON LATERAL SIDE. PAIN WITH FLEXION, EXTENSION AND INVERTING. COMPARISON: XR FOOT LT MIN 3V from 02/29/2020 XR ANKLE LT MIN 3V from 02/29/2020 TECHNIQUE: Routine multiplanar multi echo sequences are performed without and with gadolinium enhancement. FINDINGS: Recent radiograph demonstrate a small bony defect at the tip of the medial malleolus. This is not well demonstrated on the MRI. However, there is no evidence of bone marrow edema at this region that would indicate an acute fracture. There is a small amount fluid within the posterior tibialis tendon sheath suggesting mild tendinitis. The ATFL and PT FL appear intact. The peroneal tendons also appear intact with a small amount fluid in the peroneus longus tendon sheath. The deltoid ligament and spring ligament appears intact. No abnormal enhancement. The Achilles tendon has an unremarkable appearance. The talar dome is unremarkable. There is a small amount fluid posterior to the posterior aspect of the talocalcaneal joint. There is a small amount of soft tissue edema along the anterior and medial aspect of the ankle. IMPRESSION: 1. No ligamentous or tendon tear is are evident. 2. Small amount fluid is present in the posterior tibialis and peroneus longus tendon sheaths and may be due to mild tendinitis 3. Small amount of fluid along the posterior aspect of the posterior talocalcaneal joint Dictated by: Paresh Li MD 04/04/2020 11:11 Electronically signed by Paresh Li MD in [facility] 04/04/2020 11:11
== END ==
PROVIDERS: PCP Nurse Practitioner Family; Visit Provider Podiatrist
DX: M25.572 Pain in left ankle and joints of left foot (principal); S82.52XA Displaced fracture of medial malleolus of left tibia, initial encounter for closed fracture; S93.402A Sprain of unspecified ligament of left ankle, initial encounter; S96.912A Strain of unspecified muscle and tendon at ankle and foot level, left foot, initial encounter
CPT/HCPCS: 73723; A9576

== ENCOUNTER 2020-04-13 18:44 | Emergency (ER) | payer MEDICAID, SELFPAY ==
[2020-04-13 19:01] VITALS: BP 136/81; PULSE 62; RESP 18; O2SAT 95; BMI 37.2
[2020-04-13 19:10] VITALS: BP 122/75; PULSE 61; RESP 18; TEMP 36.5; O2SAT 97; BMI 37.2
--- NOTE | 2020-04-13 19:26 | HMH.EDUTC ---
[facility] [place] Clinical Impression: Cast discomfort, Cast removal Disposition: Home, Self-Care Condition on Discharge: Good Instructions: How to Use a Walking Boot Additional Instructions: Go home and keep left lower leg elevated Ice like you was informed by Dr Mendoza and staff Call the office in the morning for follow up appointment and inform them that you had to have cast removed due to tightness Return if needed Straight to ER if any life threatening symptoms Referrals: Jason Khan MD [Primary Care Provider] - As needed Josette Mendoza DPM [Staff Physician] - As needed Time of Disposition: 19:32 Medical Decision Making - Adolph Inquiry Pt receiving controlled substance: No Adolph was queried for this patient: No Vital Signs: 04/13/20 19:01 04/13/20 19:10 04/13/20 20:27 Temperature 97.7 F 97.7 F Temperature Source Oral Oral Pulse Rate 61 Pulse Rate [Radial] 62 61 Respiratory Rate 18 18 16 Blood Pressure 122/75 Blood Pressure [Right Arm] 136/81 122/75 Blood Pressure Mean [Right Arm] 99 90 Blood Pressure Source [Right Arm] Automatic Cuff Automatic Cuff Blood Pressure Position Sitting Blood Pressure Position [Right Arm] Sitting Sitting 02 Sat by Pulse Oximetry 95 97 Oxygen Delivery Method Room Air Room Air Room Air - Physician Consults Physician Consulted: Kelly Time: 19:30 Reason -: Podiatry Eval/Care Comment/Response: Spoke with Dr Mendoza and she advised to remove the cast, do Lisa test and assess for calf pain if not having pain she can boot and call office tomorrow for appointment for follow up and place her back in to the boot cast. Medical Decision Narrative: Patient denies calf pain states that pain is in her foot where it was when she has been being treated at Podiatry States that cast just felt tight and hurt when she would hold her foot down Cast removed and Homans sign negative, patient denies pain in calf area and pressure feels better after cast removed, patient placed in boot cast that she had previously and patient verbalized understanding to follow up with Dr Mendoza [facility] [place] HPI - General Stated complaint: Cast put on Saturday, swelling Time Seen by Provider: 04/13/20 19:26 Mode of Arrival: Wheelchair Source of Information: Patient Limitations: Physical Limitations Description of Symptoms (Recalled from Triage Doc. by RN): had cast put on Saturday in Dr. Mendoza's office and it has now become tight around her upper calf HEENT Symptoms (Recalled from RN notes): No Resp Symptoms (Recalled from RN notes): No Skin Symptoms (Recalled from RN notes): No MS Symptoms (Recalled from RN notes): Yes Functional Status (Recalled from RN notes): none - History of Present Illness Provider Complaint: Patient states that she was in a boot for about 6wks and on Saturday they put her into a cast on her left lower leg States that today it feels like the cast was getting tight around her calf area and she was worried States that they told her if it got tight it may need to be changed so she came in to get it checked Denies new injury, denies falling State that she has been using ice like informed too - Related Data Home Medications Medication Instructions Recorded Confirmed montelukast 10 mg tablet 10 mg PO HS 30 Days #30 tab 08/25/18 03/14/20 Trazodone HCl 200 mg PO HSP PRN 05/03/19 03/14/20 Tizanidine HCl [Zanaflex 4mg 4 mg PO BIDP PRN 07/30/19 03/14/20 tab] Furosemide [Furosemide 40MG tAB] 40 mg PO DAILY 08/31/19 03/14/20 tiotropium bromide 18 mcg capsule 1 cap INHALATION DAILY 11/04/19 03/14/20 with inhalation device Previous Rx's Medication Instructions Recorded fluticasone propionate 50 2 spray INTRANASAL DAILY #16 g 10/23/18 mcg/actuation nasal spray,suspension Potassium Chloride [Micro-K 10mEq 20 meq PO BID #60 capsule.er 07/31/19 cap] levothyroxine 75 mcg tablet 75 mcg PO DAILY #90 tab 10/30/19 spironolactone 50 mg tablet 50 mg PO DAILY #90 tab 11/19/19 micheline
[2020-04-13 20:27] VITALS: BP 122/75; PULSE 61; RESP 16; TEMP 36.5; O2SAT 97
== END 2020-04-13 20:29 | disposition home or self-care (01) ==
LOC: ER 18:49 → UTC 18:55
PROVIDERS: Emergency Provider Nurse Practitioner; PCP Family Medicine
DX: R22.42 Localized swelling, mass and lump, left lower limb (principal); Z46.89 Encounter for fitting and adjustment of other specified devices; J44.9 Chronic obstructive pulmonary disease, unspecified; K21.9 Gastro-esophageal reflux disease without esophagitis; I10 Essential (primary) hypertension; I25.10 Atherosclerotic heart disease of native coronary artery without angina pectoris; E03.9 Hypothyroidism, unspecified; M79.7 Fibromyalgia
CPT/HCPCS: 99201

== ENCOUNTER 2020-04-16 14:02 | Emergency (ER) | payer MEDICAID, SELFPAY ==
[2020-04-16] VITALS (13 sets, daily range): BP systolic 104–130; BP diastolic 44–108; PULSE 59–74; RESP 16–20; TEMP 36.6–37.6; O2SAT 95–100; BMI 37.2
--- NOTE | 2020-04-16 14:22 | XR_ITS ---
PROCEDURE: XR ANKLE RT 2V Patient Age:59Y CLINICAL INDICATION: fall, deformity noted pain and deformity at the right ankle following trauma COMPARISON: CT ANKLE RT WO CON from 04/16/2020 FINDINGS: Trimalleolar fracture dislocation right ankle with severe dislocation of talus. Eversion tilt of talus with talus dislocated laterally and posteriorly, with accompanying lateral malleolus and medial malleolus fragments moving with displaced are laterally/posteriorly along with talus. Medial malleolar fracture: Fracture transversus base medial malleolus. It accompanies the talus laterally, which is dislocated posteriorly and laterally relative to the tibia. Prominent lateral/posterior tilt of the talus results as well Distal fibular fracture: Oblique fracture of the distal fibula metaphysis with the resulting distal fibular/lateral malleolar fracture fragmentwith prominent posterior lateral displacement as well as it accompanies the dislocated talus Subtle posterior malleolar fracture fragment only slight inferior displacement the the the On the lateral view I suspect the medial malleolar fracture may be associated with some minor tiny fragments off the anterior medial margin/lip of talus. Subtalar joint relationships grossly unremarkable on plain film. Incidental plantar calcaneal spur of 7 mm length.. * I would also incidentally note some undulating areas of cortical thickening along the posterior shaft of the mid tibia-likely related to ligamentous insertions or possibly could reflect old venous insufficiency changes. Unlikely pulmonary pulmonary osteopathy. However would suggest a follow-up tibia fibula studies through orthopedics subsequently to verify stable benign character IMPRESSION: Trimalleolar fracture dislocation, with severe dislocation at the right ankle Dictated by: Christian Joel MD 04/16/2020 18:43 Electronically signed by Christian Joel MD in [place] 04/16/2020 18:43
--- NOTE | 2020-04-16 14:22 | XR_ITS ---
PROCEDURE: XR KNEE RT 2V Patient Age:59Y CLINICAL INDICATION: fall, pain fall right knee and right ankle trauma and injury COMPARISON: KNEE3L KNEE-3 VIEWS-LT from 05/08/2014 FINDINGS: Right knee2 the view: Lateral view with rotated AP view Slightly limited study due the rotation but no fracture or dislocation evident. No joint effusion evident at suprapatellar bursa. No lytic or blastic change. There is normal mineralization. The joint spaces are well-preserved. No significant degenerative/arthritic changes. No erosive changes evident. Minimal old dystrophic calcification is seen along the anterior aspect of the patella. The proximal fibula is intact no fracture here. IMPRESSION: No acute findings at the right knee. Slightly limited studies right knee today but with no acute findings Dictated by: Christian Joel MD 04/16/2020 15:23 Electronically signed by Christian Joel MD in [place] 04/16/2020 15:23
--- NOTE | 2020-04-16 14:38 | PC.NURSE ---
ER MD notified of deformity noted to pts ankle.
--- NOTE | 2020-04-16 14:39 | ECG_ITS ---
APPROVED REPORT Exam: Resting ECG HR:67 bpm ECG Measurements Heart Rate 67 AXES ME 172 P 50 QRSd 92 QRS 52 QT 422 T 0 QTc 445 <Conclusion> Normal sinus rhythm Normal ECG Electronically signed by : Jason Spear, 04/17/2020 06:36:20
--- NOTE | 2020-04-16 15:03 | HMH.EDGENADL ---
ED Disposition Clinical Impression: Trimalleolar fracture Qualifiers: Encounter type: initial encounter Fracture type: closed Laterality: right Qualified Code(s): S82.851A - Displaced trimalleolar fracture of right lower leg, initial encounter for closed fracture Ankle dislocation Qualifiers: Encounter type: initial encounter Laterality: right Qualified Code(s): S93.04XA - Dislocation of right ankle joint, initial encounter Disposition: Home, Self-Care Condition on Discharge: Fair Instructions: How to Use Crutches, DI for Ankle Fracture, How to Take Care of Your Splint, DI for Moderate Sedation, DI for Ankle Dislocation Additional Instructions: Dr. Finn will call you on Saturday. She would like to check you in her office on Saturday. You may call Dr. Mendoza on Saturday to arrange follow-up. Ice your ankle 20 minutes 4-5 times a day and elevate your ankle on several pillows. Contain splint and crutches. Take home pack of Tylenol 3 for pain, fill prescription for Percocet when pharmacy opens. Additional instructions for CONTROLLED SUBSTANCES: You have been prescribed a medication that is a controlled substance. Controlled substances include pain medications known as opiates and sedative nerve medications known as benzodiazepines. Tramadol, fioricet, and gabapentin are also controlled substances. Some common opiates include: Codeine (such as Tylenol #3) Hydrocodone (Vicodin, Lortab, Lorcet, [place]) Oxycodone (Percocet, Percodan, Oxycodone, Oxy IR) Some common benzodiazepines include: Diazepam (Valium) Lorazepam (Ativan) Alprazolam (Xanax) Clonazepam (Klonopin) Oxazepam (Serax) All of these controlled substances are highly addictive and frequently abused. Misuse can and frequently does lead to addiction as well as overdose and . Medication should be stored in a locked cabinet or other secure storage unit. Do not store the medication in a motor vehicle. Short term supplies, 3 days or less, are prescribed because of the highly addictive nature of the medication. Any of the controlled substance medication NOT taken should be disposed of properly and NOT SAVED. The recommended method of disposing of unused medications is: Place the medicines in a sealable plastic bag. If the medicine is a solid, crush it or add water to dissolve it. Add something undesirable (cat litter, coffee grounds, etc.) Dispose of sealed bag in household trash Do not flush or pour unused medicines down a sink or drain. Controlled substances should not be shared, given away or sold. Because of the addictive nature and frequent abuse, these medications are sometimes stolen. These medications should be kept in a safe place where they cannot be stolen. Do not keep them in your car or purse. Lost or stolen prescriptions for controlled substances WILL NOT BE REFILLED in this emergency department, regardless of whether a police report was filed. Prescriptions: Oxycodone HCl/Acetaminophen [Percocet 5/325mg tablet] 1 tab PO Q6HP PRN #20 tab PRN Reason: Moderate To Severe Pain Prescription Printed Referrals: Jason Khan MD [Primary Care Provider] - Ave Finn MD [Physician] - - Critical Care Critical Care Time: No Attestation: On 04/16/20, the high probability of a clinically significant, sudden or life threatening deterioration of the following system(s) required my full and direct attention, intervention and personal management. The time I documented below is in addition to time spent performing reported procedures but includes the following listed in this critical care notation. Medical Decision Making - Medical Records Medical records reviewed: Yes: I reviewed the patient's medical records. - Adolph Inquiry Pt receiving controlled substance: Yes Adolph was queried for this patient: No Reason not queried -: Emergent pt cond-no time Risks and benefits of using a controlled substance: were not discussed with luis
--- NOTE | 2020-04-16 15:30 | PC.NURSE ---
Dr Finn paged.
--- NOTE | 2020-04-16 15:32 | PC.NURSE ---
BASSEM BRIDGES speaking with Dr Fernandez
--- NOTE | 2020-04-16 16:00 | XR_ITS ---
PROCEDURE: XR ANKLE RT 2V Patient Age:59Y CLINICAL INDICATION: Trimalleolar fracture dislocation right ankle but injury COMPARISON: XR ANKLE LT MIN 3V from 02/29/2020 XR ANKLE RT 2V from 04/16/2020 CT ANKLE RT WO CON from 04/16/2020 FINDINGS: POST REDUCTION When compared to study from earlier today there has been marked improvement of relationships at right ankle on these now post reduction images but. The dislocation has been reduced with with anatomic relationships re-establish at the ankle. A specifically the relationships tibia and talus appear to be anatomic or near anatomic. Transverse fracture of the medial malleolus of is more anatomic in position of but noting distraction at the medial malleolar fracture line most evident at its medial and anterior aspect.. This medial middle or fracture may continue towards the medial anterior lip of the tibia. distal fibula fracture shows fairly anatomic relationships on the frontal projection and roughly 4.5 mm posterior offset and distraction on the lateral projection. Subtle posterior malleolar fracture fragment appears to be in good position as well but Talus appears to be appropriate position on this post reduction AP study, relative to the tibia. The dome of the talus appears intact. Posterior fiberglass splint has been placed. IMPRESSION: Post reduction images of trimalleolar fracture marked improved positioning Post reduction images show show fairly anatomic relationships have been re-established at the right ankle. With details in body of report Dictated by: Christian Joel MD 04/16/2020 18:51 Electronically signed by Christian Joel MD in [place] 04/16/2020 18:51
--- NOTE | 2020-04-16 16:02 | PC.NURSE ---
xray at BS for post reduction xray
--- NOTE | 2020-04-16 16:08 | PC.NURSE ---
notified ER MD pt is awake, alert and oriented current VS BP 117/62, HR 60, RR 16, SaO2 100% on 2L per [place] ER MD viewed post reduction film, stated okay to send pt for CT
--- NOTE | 2020-04-16 16:10 | PC.NURSE ---
pt to Ct
--- NOTE | 2020-04-16 16:13 | CT_ITS ---
PROCEDURE: CT ANKLE RT WO CON 3D volume rendering reconstructions with shading included Patient Age:59Y CLINICAL HISTORY: ankle fracture. Fracture dislocation right ankle COMPARISON: No exams were available for comparison TECHNIQUE: No contrast A helical axial images obtained with sagittal and coronal reformats. All CT scans at the facility use one or more dose reduction, viz: automated exposure control, ma/kV adjustment per patient size (including targeted exams where dose is matched to indication, i.e. head), or iterative reconstruction technique. 3D volume rendering reconstructions with shading included and performed by technologist independent workstationp (76 CPT ) FINDINGS: Trimalleolar fracture. Components include: 1. DISTAL FIBULAR FRACTURE: Oblique fracture of the distal fibula this passes from the posterior aspect of the distal fibular shaft passing through the metaphysis exiting fibula at lateral corner of the ankle mortise. Some very tiny associated fragments along this fracture associated. This distal fibular/lateral malleolar fracture fragment displaced roughly 5-6 mm posteriorly [address] laterally on this CT. 2. MEDIAL MALLEOLAR FRACTURE. There is a transverse fracture through base the medial malleolus with slight lateral posterior displacement medial malleolus fracture displaced laterally as it accompanying the talus laterally.. Tiny comminuted fracture fragments associated along course of this fracture and extending slightly along the anterior the medial anterior lip of distal tibia 3.. Small Posterior Malleolar Fragment: Somewhat linear linear cortical fragment along the posterior rim fracture posterior malleolus cortex.. This latter fracture is relatively nondisplaced. Dome of talus appears intact with no definitive fracture.. Difficult to exclude some very subtle impacted injury along the posterior margin of the talus but is most likely intact. Subtalar joint appears intact with satisfactory relationships. Calcaneus intact The prior plain film earlier today showed more severe dislocation associated with this trimalleolar fracture right ankle. The dislocation has been reduced since that earlier studies and relationships at the tibial talar joint have markedly improved. Continue note 5 mm lateral shift of the distal fibula with roughly 4.5 mm lateral position of talus remaining. Medial malleolar fragment also migrated laterally with initial injury and remains attached to the talus with slight residual posterior lateral positioning of medial malleolar fragment .. Incidental plantar calcaneal spur of 7.5 mm length.. . Prominent soft tissue swelling about the ankle both medial and lateral with some edema extending along dorsum of foot If any additional reconstructions desired by orthopedics please notify technologist's IMPRESSION.................... Trimalleolar fracture right ankle There is been reduction of the initial severe dislocation at this trimalleolar fracture since studies from earlier today With this there is slight residual lateral offset of talus, as well slight lateral positioning of the accompanying lateral and medial malleolus persist. But again positioning markedly improved since earlier study Dictated by: Christian Joel MD 04/16/2020 18:16 Electronically signed by Christian Joel MD in [place] 04/16/2020 18:16
--- NOTE | 2020-04-16 16:14 | PC.NURSE ---
BASSEM BRIDGES speaking with Dr. Fernandez
--- NOTE | 2020-04-16 17:56 | PC.NURSE ---
Per Maryan in rad Dr Joel is reading pt's CT. She will text him to get an update on it.
[2020-04-16 18:26] LABS: Basophils % 0.1 % (0.1-2.0); Eosinophils # 0.2 K/mm3 (0.0-0.4); Eosinophils % 1.2 % (0.1-12.0); Hematocrit 33.6 % (37.0-47.0); Lymphocytes # 1.5 K/mm3 (0.7-4.5); Lymphocytes % 8.3 % (10-50); Mean Corpuscular HGB Conc 32.6 g/dL (31.8-35.4); Mean Corpuscular Hemoglobin 32.2 pg (27.0-31.2); Mean Corpuscular Volume 98.6 fl (81-99); Mean Platelet Volume 8.1 fl (7.4-10.4); Monocytes # 0.5 K/mm3 (0.1-1.0); Monocytes % 2.6 % (1.7-9.3); Neutrophils % 87.8 % (37.0-80.0); Platelet Count 352 K/mm3 (142-424); Red Blood Count 3.41 M/mm3 (4.20-5.40); Red Cell Distribution Width 14.9 % (11.5-17.5); White Blood Count 18.3 K/mm3 (4.8-10.8)
[2020-04-16 18:28] LABS: MANUAL DIFFERENTIAL MANUAL DIFFERENTIAL (MANUAL DIFF)
[2020-04-16 18:39] LABS: Lymphocytes % 9 % (10-50); Monocytes % 4 % (2-9); Neutrophils % 83 % (42-76); Platelet Estimate Normal; RBC Morphology Normal; Total Cells Counted 100
[2020-04-16 18:40] LABS: Chloride 110 mmol/L (98-107)
[2020-04-16 18:41] LABS: Potassium 3.5 mmoL/L (3.5-5.1); Sodium 139 mmol/L (136-145)
[2020-04-16 18:43] LABS: Alanine Aminotransferase 26 U/L (12-78); Alkaline Phosphatase 77 U/L (38-126); Anion Gap 9.5 mEq/L (5-15); Aspartate Amino Transferase 92 U/L (14-36); Bilirubin,Total 0.9 mg/dl (0.2-1.3); Blood Urea Nitrogen 11 mg/dl (7-17); Carbon Dioxide 23 mmol/L (22.0-30.0); Creatinine Clearance Estimated 105 mL/min (50-200); Estimated Glomerular Filt Rate 64 ml/min (>60); GFR (African American) 78 ML/MIN (>60)
[2020-04-16 18:44] LABS: Calcium 9.2 mg/dl (8.4-10.2); Globulin 2.9 g/dL (1.3-3.2); Glucose 94 mg/dl (74-100); Total Protein,Serum 5.9 g/dl (6.3-8.2)
== END 2020-04-16 19:31 | disposition home or self-care (01) ==
PROVIDERS: Emergency Provider Emergency Medicine; PCP Family Medicine
DX: S82.851A Displaced trimalleolar fracture of right lower leg, initial encounter for closed fracture (principal); R42 Dizziness and giddiness; S93.04XA Dislocation of right ankle joint, initial encounter; W01.0XXA Fall on same level from slipping, tripping and stumbling without subsequent striking against object, initial encounter; Y92.524 Gas station as the place of occurrence of the external cause; Z79.899 Other long term (current) drug therapy; F17.210 Nicotine dependence, cigarettes, uncomplicated; I10 Essential (primary) hypertension; J44.9 Chronic obstructive pulmonary disease, unspecified; I25.10 Atherosclerotic heart disease of native coronary artery without angina pectoris; K21.9 Gastro-esophageal reflux disease without esophagitis; M79.7 Fibromyalgia; E03.9 Hypothyroidism, unspecified; Z88.0 Allergy status to penicillin; Z88.1 Allergy status to other antibiotic agents; Z88.2 Allergy status to sulfonamides
CPT/HCPCS: 27818; 36415; 73560; 73600; 73700; 80053; 85007; 85025; 93005; 96365; 96375; 96376; 99285; J2405

== ENCOUNTER → 2020-04-18 14:43 | Outpatient (CLI) | payer MEDICAID, SELFPAY ==
--- NOTE | 2020-04-18 15:11 | XR_ITS ---
PROCEDURE: XR ANKLE RT MIN 3V CLINICAL INDICATION: ankle dislocation Follow-up fracture dislocation COMPARISON: XR ANKLE LT MIN 3V from 02/29/2020 XR ANKLE RT 2V from 04/16/2020 FINDINGS: Oblique distal fibular fracture is present with 6 mm lateral displacement of the distal fracture fragment with widening of the ankle mortise. There is a transverse fracture involving the base of the medial malleolus with 5 mm lateral displacement of the distal fracture fragment. Avulsion fracture also noted of the anterior distal tibia. There is a cast in place.. The talus is displaced laterally by approximately 4 mm. The joint spaces are well-preserved. No significant degenerative/arthritic changes. No erosive changes evident. Other findings:None. IMPRESSION: Distal tib fib fracture as described above with widening of the ankle mortise and mild lateral displacement of the talus Dictated by: Paresh Li MD 04/18/2020 15:56 Electronically signed by Paresh Li MD in [place] 04/18/2020 15:56
--- NOTE | 2020-04-18 15:11 | XR_ITS ---
PROCEDURE: XR CHEST 2V CLINICAL HISTORY: pre-op Pneumonia COMPARISON: XR CHEST PORTABLE PICC PLAC from 08/31/2019 XR CHEST PORTABLE from 09/02/2019 CT CHEST WO/W CON from 10/12/2019 XR CHEST 2V from 10/22/2019 XR ANKLE RT MIN 3V from 04/18/2020 FINDINGS: Mild cardiomegaly without failure. There are increased markings in the right perihilar region suspicious for residual infiltrate. The remaining lungs are clear. No acute bony abnormalities. IMPRESSION: Cardiomegaly with right perihilar infiltrate. Overall, there has been improvement in the bilateral pulmonary opacities compared to the previous exam Dictated by: Paresh Li MD 04/18/2020 15:54 Electronically signed by Paresh Li MD in [place] 04/18/2020 15:54
[2020-04-18 15:14] LABS: Basophils # 0.1 K/mm3 (0-0.2); Basophils % 0.7 % (0.1-2.0); Eosinophils # 0.3 K/mm3 (0.0-0.4); Eosinophils % 3.6 % (0.1-12.0); Hematocrit 34.5 % (37.0-47.0); Lymphocytes # 1.6 K/mm3 (0.7-4.5); Lymphocytes % 21.2 % (10-50); Mean Corpuscular HGB Conc 31.8 g/dL (31.8-35.4); Mean Corpuscular Hemoglobin 31.7 pg (27.0-31.2); Mean Corpuscular Volume 99.7 fl (81-99); Mean Platelet Volume 8.3 fl (7.4-10.4); Monocytes # 0.4 K/mm3 (0.1-1.0); Neutrophils # 5.3 K/mm3 (1.8-7.8); Neutrophils % 69.5 % (37.0-80.0); Platelet Count 393 K/mm3 (142-424); Red Blood Count 3.46 M/mm3 (4.20-5.40); Red Cell Distribution Width 14.6 % (11.5-17.5); White Blood Count 7.7 K/mm3 (4.8-10.8)
[2020-04-18 16:11] LABS: Alanine Aminotransferase 32 U/L (12-78); Albumin Level 3.1 g/dl (3.5-5.0); Alkaline Phosphatase 103 U/L (38-126); Anion Gap 10.6 mEq/L (5-15); Aspartate Amino Transferase 59 U/L (14-36); Bilirubin,Total 0.8 mg/dl (0.2-1.3); Blood Urea Nitrogen 11 mg/dl (7-17); Calcium 9.3 mg/dl (8.4-10.2); Carbon Dioxide 26 mmol/L (22.0-30.0); Chloride 109 mmol/L (98-107); Estimated Glomerular Filt Rate 57 ml/min (>60); GFR (African American) 69 ML/MIN (>60); Globulin 3.2 g/dL (1.3-3.2); Glucose 110 mg/dl (74-100); Potassium 3.6 mmoL/L (3.5-5.1); Sodium 142 mmol/L (136-145); Total Protein,Serum 6.3 g/dl (6.3-8.2)
[2020-04-18 16:28] LABS: 25-OH Vitamin D, Total 71.7 ng/mL (30-100)
== END ==
PROVIDERS: PCP Family Medicine; Visit Provider Orthopaedic Surgery
DX: Z01.818 Encounter for other preprocedural examination (principal); S93.06XA Dislocation of unspecified ankle joint, initial encounter
CPT/HCPCS: 36415; 71046; 73610; 80053; 82306; 85025

== ENCOUNTER 2020-04-20 19:03 | Emergency (ER) | payer MEDICAID, SELFPAY ==
--- NOTE | 2020-04-20 19:05 | XR_ITS ---
PROCEDURE: XR ANKLE RT MIN 3V CLINICAL INDICATION: fall Follow-up fracture COMPARISON: XR ANKLE LT MIN 3V from 02/29/2020 XR ANKLE RT 2V from 04/16/2020 XR ANKLE RT 2V from 04/16/2020 XR ANKLE RT MIN 3V from 04/18/2020 FINDINGS: The study is obtained through a splint. There is a mildly displaced oblique fracture involving the distal fibula. There is 7-8 mm lateral displacement of the distal fracture fragment. A transverse displaced fracture also involves the medial malleolus.. The ankle mortise is widened and there is lateral displacement of the talus with eversion of the talus. May be an avulsion fracture of the anterior distal tibia as well. IMPRESSION: Displaced by malleolar fracture with widening of the ankle mortise. The lateral displacement slightly greater when compared to 04/18/2020 Dictated by: Paresh Li MD 04/21/2020 08:56 Electronically signed by Paresh Li MD in [place] 04/21/2020 08:56
[2020-04-20 19:12] VITALS: BP 121/64; PULSE 60; RESP 18; TEMP 37.3; O2SAT 95; BMI 37.2
[2020-04-20 19:30] VITALS: BP 134/71; PULSE 60; RESP 18; O2SAT 93
--- NOTE | 2020-04-20 19:34 | HMH.EDGENADL ---
ED Disposition Clinical Impression: Fracture dislocation of ankle Qualifiers: Encounter type: initial encounter Fracture type: closed Laterality: right Qualified Code(s): S82.891A - Other fracture of right lower leg, initial encounter for closed fracture Trimalleolar fracture of ankle, closed Qualifiers: Encounter type: initial encounter Laterality: right Qualified Code(s): S82.851A - Displaced trimalleolar fracture of right lower leg, initial encounter for closed fracture Disposition: Home, Self-Care Condition on Discharge: Good Additional Instructions: Increase Percocet dose to 1 to [address] Finn on Saturday as scheduled Prescriptions: Oxycodone HCl/Acetaminophen [Percocet 5/325mg tablet] 1 tab PO Q6HP PRN #20 tab PRN Reason: Moderate To Severe Pain Transmission Status: Sent to [facility] Referrals: PCP,No [Non-Staff] - - Critical Care Critical Care Time: No Attestation: On 04/20/20, the high probability of a clinically significant, sudden or life threatening deterioration of the following system(s) required my full and direct attention, intervention and personal management. The time I documented below is in addition to time spent performing reported procedures but includes the following listed in this critical care notation. Medical Decision Making - Adolph Inquiry Pt receiving controlled substance: Yes Adolph was queried for this patient: No Reason not queried -: Adolph system downtime Risks and benefits of using a controlled substance: were not discussed with pt by me Vital Signs: 04/20/20 19:12 Temperature 99.2 F Temperature Source Oral Pulse Rate [Radial] 60 Respiratory Rate 18 Blood Pressure [Right Arm] 121/64 Blood Pressure Mean [Right Arm] 83 Blood Pressure Source [Right Arm] Automatic Cuff Blood Pressure Position [Right Arm] Sitting 02 Sat by Pulse Oximetry 95 Oxygen Delivery Method Room Air Orders (Tests/Meds): ORDERS Category Date Time Status CT ankle RT wo con Stat Cat Scan 04/20/20 19:36 Ordered XR ankle RT min 3V Stat Exams 04/20/20 19:05 Taken - Radiology Data #1 Image(s): Ankle Image Reviewed: Yes I reviewed the patient's radiology image Trimalleolar fracture, evidence of instability with talar tilt, but no significant change from prior postreduction x-ray. - Physician Consults Physician Consulted: Dr. Finn Time: 19:48 Reason -: Orthopedic Eval/Care Comment/Response: She reviewed x-rays and agrees that there has been no significant change since initial reduction. States patient may increase Percocet to 1-2 as needed. Follow-up with her in the office on Saturday as scheduled. General Adult HPI - General Chief complaint: Fall Stated complaint: R Ankle Pain Time Seen by Provider: 04/20/20 19:34 Mode of Arrival: EMS Limitations: No Limitations Description of Symptoms (Recalled from ER Triage Doc. by RN): complaint of pain in the right ankle. States she has been moving around n the left leg more and thinks that she has injured the right ankle again. - History of Present Illness HPI narrative: I saw the patient on 04/16/2020 for fracture dislocation, trimalleolar, right ankle. I reduced her ankle in the emergency department and she followed up with Dr. Finn on 04/18/2020. She is supposed to have surgery this coming 04/26/2020. She has an appointment to see Dr. Finn on Saturday before surgery. She was trying to transfer herself to the toilet to use the bathroom this evening accidentally stumbled and had put weight on her right lower extremity and felt some sort of shifting in her ankle and was afraid she reinjured it. She says the medication prescribed by Dr. Finn he is not helping her pain. She is on Percocet 5 mg. She says she thinks she has 5 left. - Related Data Home Medications Medication Instructions Recorded Confirmed montelukast 10 mg tablet 10 mg PO HS 30 Days #30 tab 08/25/18
--- NOTE | 2020-04-20 19:36 | CT_ITS ---
PROCEDURE: CT ANKLE RT WO CON CLINICAL HISTORY: fall Follow-up fracture, prior fall with fracture and fall again today COMPARISON: XR ANKLE RT MIN 3V from 04/20/2020 TECHNIQUE: Axial images obtained with sagittal and coronal reformats. All CT scans at the facility use one or more dose reduction, viz: automated exposure control, ma/kV adjustment per patient size (including targeted exams where dose is matched to indication, i.e. head), or iterative reconstruction technique. 3D images also generated FINDINGS: There is an oblique fracture of the distal shaft of the fibula which exits medially at the level of the ankle joint. There is mild lateral displacement of the distal fracture fragment by approximately 5 mm and posterior displacement by 3 mm. There is some comminution anteriorly at the fracture site. There is a transverse fracture involving the base of the medial malleolus with distraction of the distal fracture fragment by 5 mm and minimal anterior displacement of 3 mm. Avulsion fracture involves the posterior aspect of the distal tibia. The talus is in good position. The ankle mortise is slightly widened. There is a type 1 os navicularis. There is generalized soft tissue swelling about the ankle IMPRESSION: Mildly displaced distal fibular and medial malleolar fractures with mild widening of the ankle mortise as described above. Avulsion fracture involves the posterior aspect of the distal tibia Dictated by: Paresh Li MD 04/21/2020 09:10 Electronically signed by Paresh Li MD in [place] 04/21/2020 09:10
[2020-04-20 20:00] VITALS: BP 118/66; PULSE 56; RESP 18; O2SAT 95
[2020-04-20 20:48] VITALS: BP 118/66; PULSE 60; RESP 14; TEMP 37.2; O2SAT 96
== END 2020-04-20 20:49 | disposition home or self-care (01) ==
PROVIDERS: Emergency Provider Emergency Medicine; PCP Family Medicine
DX: S82.851D Displaced trimalleolar fracture of right lower leg, subsequent encounter for closed fracture with routine healing (principal); W01.0XXA Fall on same level from slipping, tripping and stumbling without subsequent striking against object, initial encounter; Y92.012 Bathroom of single-family (private) house as the place of occurrence of the external cause; J44.9 Chronic obstructive pulmonary disease, unspecified; F41.8 Other specified anxiety disorders; K21.9 Gastro-esophageal reflux disease without esophagitis; I10 Essential (primary) hypertension; M79.7 Fibromyalgia; E03.9 Hypothyroidism, unspecified; F17.210 Nicotine dependence, cigarettes, uncomplicated; Z88.0 Allergy status to penicillin; Z88.2 Allergy status to sulfonamides
CPT/HCPCS: 73610; 73700; 99282

== ENCOUNTER → 2020-04-25 15:17 | Outpatient (CLI) | payer MEDICAID, SELFPAY ==
[2020-04-25 20:14] LABS: Coronavirus 19 IgG Antibody Negative (Negative); Coronavirus 19 IgM Antibody Negative (Negative)
== END ==
PROVIDERS: Visit Provider Orthopaedic Surgery
DX: Z01.818 Encounter for other preprocedural examination (principal); S82.891A Other fracture of right lower leg, initial encounter for closed fracture
CPT/HCPCS: 36415; 86328

== ENCOUNTER 2020-04-26 10:53 | Day surgery (SDC) | payer MEDICAID, SELFPAY ==
--- NOTE | 2020-04-19 11:39 | SW/DCPLANNER ---
MADE A CALL TO THIS PATIENT PER DR MAN'S OFFICE REGARDING HER UPCOMING SURGERY FOR A DISLOCATED ANKLE: PATIENT STATED SHE WOULD LIKE TO BE ABLE TO GO TO [facility] FOR REHAB... I EXPLAINED TO HER THAT [facility] DOES NOT HAVE ANY MEDICAID BEDS AND THE SURGERY SHE IS HAVING IS CONSIDERED AN OUT PATIENT SURGERY, THIS IS PENDING NO OTHER SETBACKS HAPPENS... PATIENT STATED SHE HAS A BOOT ON HER OTHER FOOT.. SHE STATED HER BEDROOM IS UPSTAIRS AND SHE CAN'T CLIMB STAIRS... I TOLD HER AT THIS TIME SHE WOULD NOT BE ABLE TO GO TO A PRISON FOR REHAB BUT IF THERAPY IS NEEDED WE CAN OFFER HER OUT PATIENT IF NOTHING ELSE SHOULD POP UP..... WILL SEE HER WHEN SHE HAS HER SURGERY....
[2020-04-26] VITALS (12 sets, daily range): BP systolic 93–135; BP diastolic 48–81; PULSE 60–79; RESP 16–18; TEMP 36.4–43; O2SAT 92–97; BMI 37.2
--- NOTE | 2020-04-26 12:24 | SUR.PREOP ---
Timeout for Popliteal Block completed per Edelmira Stafford CRNA.
--- NOTE | 2020-04-26 14:34 | XR_ITS ---
PROCEDURE: XR ANKLE RT 2V CLINICAL INDICATION: ORIF ANKLE COMPARISON: No exams were available for comparison FINDINGS: Multiple intraoperative spot images of the right ankle were obtained during surgery. Initial images demonstrate displaced bimalleolar fractures with subsequent ORIF with placement of a long metal plate with fixating screws over the fibula and 2 long cannulated screws along the medial malleolus. Interpretation of these images were provided by the surgeon at the time of the procedure. IMPRESSION: Please see surgeon's notes for full intraoperative details. Dictated by: Treva Dalal 04/27/2020 17:33 Electronically signed by Treva Dalal in [place] 04/27/2020 17:33
--- NOTE | 2020-04-26 14:58 | P.PN_ITS ---
[facility] Anesthesia Checklist - Patient Identification Patient Identification: Arm Band - Structural Data Admitted From: Home Planned Operative Procedure/s: ORIF right ankle Consent for Planned Operative Procedure(s) Verified: Yes Verified Documents: Surgical Consent, History and Physical - NPO Status Verified Time NPO: 00:00 - Additional verifications Anesthesia Reactions: No Hx Blood Transfusions: No Blood Transfusion Reaction: No - Airway Assessment C-Spine Mobility Assessed: Yes TMJ Mobility Assessed: Yes Dentition: Poor Dentition (lower intact, upper edentulous) - Neurological Assessment Level of Consciousness: Awake, Alert - Anesthesia Plan Anesthesia Risk discussed: Yes Anesthesia Plan: Verified ASA Class: III Anesthesia Type: General w/block (Risks/benefits of Popliteal/saphenous nerve block. Pt verbalizes understanding) [facility] History I have reviewed the patient's past medical history: Yes Medical History: Reports:: Anxiety, Atherosclerotic Heart Disease, Congestive Heart Failure, Chronic Obstructive Pulmonary Disease (COPD), Coronary Artery Disease, Depression, Gastroesophageal Reflux Disease(GERD), Hypertension, Lung Disease, MRSA Denies:: Cancer, Diabetes Mellitus Type 1, Diabetes Mellitus Type 2, Internal Pacemaker, Seizures *Have you ever received a pneumonia vaccine?: No *Have you received a flu vaccine this season?: Yes Other Medical History: Reports: Anemia, Arthritis, Fibromyalgia, Hypothyroidism, Thyroid Disease, Other (fibromyalgia). Denies: Blood Transfusion Reaction Anesthesia experience/problems:: nac Laterality Cases: Bilateral: Tonsillectomy Other Surgeries: Yes: Angioplasty, Cardiac Catheterization, Cholecystectomy, Colonoscopy, Dilation and Curettage, Hysterectomy-Total, Other. No: Pacemaker Amputation: No Fractures: No - *Social History Smoking Status: Current every day smoker Tobacco Type: cigarettes # Packs/Day (cigarettes): 1 #Yrs smoked (if former smoker): 1 Alcohol Intake: never Alcohol Intake Frequency:: holidays/special occasions only Substance Use Type: denies use *Occupational Status:: unemployed Housing: house Household Members: family *Travel in the last 8 weeks: None - Psychiatric History Pschychiatric History:: Reports:: Anxiety, Depression Family Hx:: Anemia, Bleeding Disorder, Cancer, Coronary Artery Disease, Hyperlipidemia, Hypertension, Stroke, Thyroid Disorder
--- NOTE | 2020-04-26 15:01 | HMH.ANESI ---
[facility] Anesthesia Record Part I Intake, IV Amount: 1,100 Estimated blood loss (mL): 25 Urine output (mL): 0 Blood Pressure: 108/68 SaO2: 96 Pulse Rate: 79 Respiratory Rate: 16 Temperature: 97.5 F Patient is:: Drowsy, Stable Stable to PACU at:: 14:55
--- NOTE | 2020-04-26 15:04 | XR_ITS ---
PROCEDURE: XR ANKLE RT MIN 3V CLINICAL INDICATION: s/p ORIF R ankle COMPARISON: XR ANKLE RT 2V from 04/16/2020 XR ANKLE RT 2V from 04/16/2020 XR ANKLE RT MIN 3V from 04/18/2020 FINDINGS: There are nondisplaced bimalleolar and distal tibial fractures status post ORIF with a long metal plate and screws fixation. Ankle and foot is immobilized in a cast. Bony alignment is anatomic. The ankle mortise is unremarkable. IMPRESSION: Fractures of the distal right tibia and fibula status post ORIF. Bony alignment is anatomic. Dictated by: Treva Dalal 04/26/2020 15:35 Electronically signed by Treva Dalal in [place] 04/26/2020 15:35
--- NOTE | 2020-04-26 15:30 | HMH.OPNOTE ---
Date of procedure: 04/26/20 Pre-op Diagnosis:: R trimalleolar ankle fracture Post-op Diagnosis:: R trimalleolar ankle fracture Procedure performed:: open reduction internal fixation (ORIF) R distal fibula + medial malleolus; non-operative treatment of posterior malleolus fracture Surgeon:: Ave Finn MD Ramp Manager(s):: ZACHARY Ellsworth ORACLE TECHNICAL ARCHITECT:: Gianni Stafford Anesthesia: GETA, regional Estimated blood loss (mL): 25 Clinical Note:: 59yo F who sustained a closed trimalleolar fracture-dislocation of the R ankle on 04/16/20 when she fell at a gas station. She was dizzy prior to the fall and is uncertain how she fell, she does not remember the details of the injury. Immediate pain and deformity noted, so she presented to the ED at [facility], where prompt reduction and splinting was performed by the ED physician. She followed up with me in clinic 2 days later but soft tissue swelling and ecchymosis did not allow for early fixation. She elevated/iced the ankle over the following week and on 04/25/20 was deemed appropriate for internal fixation. During this interval she did stumble and fall at home, placing her full weight on the RLE. She was evaluated in the ED 04/20/20, where no change in fracture reduction was noted. She was seen and cleared for surgery by her PCP, and pre-operative laboratory testing was within normal limits. I discussed treatment options with her, including both operative and non-operative, with their relative risks and benefits. My recommendation is for open reduction internal fixation of the ankle fracture, and the patient is in agreement with this plan. I discussed the risks of surgery, including but not limited to: bleeding, infection, wound healing complications, non-union, malunion, persistent pain despite surgery, post-traumatic arthritis, painful hardware, and need for further surgery in the future. I also emphasized her increased risk for adverse event or suboptimal healing/outcome given her status as a heavy smoker, and I strongly encouraged smoking cessation. The patient was in agreement the plan for surgery, vocalized understanding of the risks of the procedure, and provided informed consent. Operative findings:: implants: Andrey VariAx ankle set 10 hole distal fibula locking plate 1 lag screw, 3.5mm non-locking 8 screws in plate, 4 proximal to fracture line and 4 distal; all 3.5mm diameter, 4 locking/4 non-locking medial malleolus: 2 cannulated, partially-threaded cancellous screws; 4.0 x 50mm (2) Operative note:: The patient was identified in preoperative holding and the R ankle signed by myself. Surgical consent was verified with the patient and all questions answered. She was then seen by anesthesia and popliteal nerve block performed in preoperative holding. The patient was then taken to the operating room and placed supine on the OR table. 900mg clindamycin were infused intravenously and general anesthesia induced. Once the patient was asleep, the splint was removed from the right ankle and soft tissues appeared amenable to fixation. Some ecchymosis remained both medially and laterally, and a small blister was present anteriorly, but these were all out of the way of the planned incisions. Nonsterile tourniquet was placed on the right thigh and the right lower leg and ankle was prepped and draped in the usual sterile fashion with the lower leg supported on a radiolucent bolster (bone foam). Timeout was performed, identifying the correct patient, correct procedure, and correct site. The procedure was begun by using the Esmarch to exsanguinate the right lower extremity and elevating the tourniquet to 250 mmHg. C-arm was used to localize the fracture site over the distal fibula. Longitudinal incision was made over the lateral aspect of the ankle, centered over the fibula and extending from the tip of the fibula to around 8 cm proximally. After the skin was incised, subcutaneous tissue was spread bl
--- NOTE | 2020-04-26 15:39 | PC.NURSE ---
1502-pt coughed on command at this time, loose cough noted, lung sounds improving and CTA 1509-radiology at bedside 1521-zofran 4mg IVP administered at this time for mild nausea, vss, pt drinking pepsi/ice chips w/out difficulty 1523-detailed report given to MAYO Quach at bedside 1525-pt transported to post op via stretcher w/susie rails up per PhilomenaRN, pt reports nausea easing, vss, pt stable
--- NOTE | 2020-04-26 16:06 | HMH.ANESII ---
[facility] Anesthesia Record Part II Discharge Time: 15:25 Destination: Surgical Day Care (OP Surgery) PACU nurse assessment reviewed?: Yes Patient Condition:: Good Anesthesia Complications:: None Swallowing reflex intact?: Yes Cyanosis?: No Blood Pressure: 102/48 Pulse Rate: 63 Temperature: 98.1 F Mental Status: Alert & Oriented Pain level:: 0 Nausea and/or vomitting:: None Intake, IV Amount: 0
== END 2020-04-26 16:08 | disposition home or self-care (01) ==
LOC: OR 10:54
PROVIDERS: PCP Family Medicine; Visit Provider Orthopaedic Surgery
PROC: (CPT 27822; principal; 2020-04-26 12:15)
DX: S82.851A Displaced trimalleolar fracture of right lower leg, initial encounter for closed fracture (principal); J44.9 Chronic obstructive pulmonary disease, unspecified; E03.9 Hypothyroidism, unspecified; Z88.0 Allergy status to penicillin; Z88.1 Allergy status to other antibiotic agents; Z88.2 Allergy status to sulfonamides; Z79.899 Other long term (current) drug therapy; Z72.0 Tobacco use; W01.0XXA Fall on same level from slipping, tripping and stumbling without subsequent striking against object, initial encounter; Y92.524 Gas station as the place of occurrence of the external cause
CPT/HCPCS: 27822; 73600; 73610; 96374; C1713; C1776; J2405; J2710

== ENCOUNTER → 2020-05-05 09:28 | Outpatient (CLI) | payer MEDICAID, SELFPAY ==
--- NOTE | 2020-05-05 09:31 | XR_ITS ---
PROCEDURE: XR ANKLE RT MIN 3V CLINICAL INDICATION: s/p right ankle fx Follow-up fracture COMPARISON: CR XR ANKLE RT 2V from 04/16/2020 CR XR ANKLE RT MIN 3V from 04/18/2020 CR XR ANKLE RT MIN 3V from 04/20/2020 CR XR ANKLE RT MIN 3V from 04/26/2020 FINDINGS: The cast has been removed. There is good alignment the distal fibula tibia status post ORIF no change in the fibular bone plate and tibial screws. Small areas of calcification present along the anterior and posterior aspect of the distal tibia. The ankle mortise is preserved and the talar dome has an unremarkable appearance. IMPRESSION: Good alignment status post ORIF right ankle Dictated b Paresh Li MD 05/05/2020 15:10 Paresh Li MD in [place] 05/05/2020 15:10
== END ==
PROVIDERS: PCP Family Medicine; Visit Provider Orthopaedic Surgery
DX: S82.891A Other fracture of right lower leg, initial encounter for closed fracture (principal)
CPT/HCPCS: 73610

== ENCOUNTER → 2020-05-17 14:27 | Outpatient (CLI) | payer MEDICAID, SELFPAY ==
[2020-05-17 15:12] LABS: Basophils # 0.1 K/mm3 (0-0.2); Basophils % 0.4 % (0.1-2.0); Eosinophils # 0.2 K/mm3 (0.0-0.4); Hematocrit 40.4 % (37.0-47.0); Hemoglobin 12.6 g/dL (12.2-16.2); Lymphocytes # 2.1 K/mm3 (0.7-4.5); Lymphocytes % 17.3 % (10-50); Mean Corpuscular HGB Conc 31.3 g/dL (31.8-35.4); Mean Corpuscular Hemoglobin 32.4 pg (27.0-31.2); Mean Corpuscular Volume 103.6 fl (81-99); Mean Platelet Volume 7.8 fl (7.4-10.4); Monocytes # 0.6 K/mm3 (0.1-1.0); Monocytes % 4.8 % (1.7-9.3); Neutrophils % 75.5 % (37.0-80.0); Platelet Count 390 K/mm3 (142-424); Red Cell Distribution Width 15.3 % (11.5-17.5); White Blood Count 11.9 K/mm3 (4.8-10.8)
[2020-05-17 15:25] LABS: Chloride 104 mmol/L (98-107); Potassium 4.1 mmoL/L (3.5-5.1); Sodium 140 mmol/L (136-145)
[2020-05-17 15:27] LABS: Alanine Aminotransferase 12 U/L (12-78); Aspartate Amino Transferase 31 U/L (14-36); Blood Urea Nitrogen 9 mg/dl (7-17); Estimated Glomerular Filt Rate 57 ml/min (>60); GFR (African American) 69 ML/MIN (>60)
[2020-05-17 15:28] LABS: Alkaline Phosphatase 90 U/L (38-126); Anion Gap 10.1 mEq/L (5-15); Bilirubin,Total 0.4 mg/dl (0.2-1.3); Calcium 9.9 mg/dl (8.4-10.2); Carbon Dioxide 30 mmol/L (22.0-30.0); Globulin 3.1 g/dL (1.3-3.2); Glucose 93 mg/dl (74-100); Iron 37 ug/dL (37-170); Total Protein,Serum 6.1 g/dl (6.3-8.2)
[2020-05-17 15:38] LABS: Total Iron Binding Capacity 266 ug/dL (265-497)
[2020-05-17 16:03] LABS: Ferritin 249 ng/ml (11.1-264)
[2020-05-19 12:24] LABS: Immunoglobulin M, Qn 358 mg/dL (26-217)
== END ==
PROVIDERS: Visit Provider Internal Medicine Medical Oncology
DX: D64.9 Anemia, unspecified (principal)
CPT/HCPCS: 36415; 80053; 82728; 82784; 83540; 83550; 85025

== ENCOUNTER 2020-05-26 16:10 | Outpatient (RCR) | payer OTHER, SELFPAY | END 2020-05-26 17:00 | disposition home or self-care (01) | LOC: PT 16:10 | PROVIDERS: Visit Provider Orthopaedic Surgery | DX: S82.891A Other fracture of right lower leg, initial encounter for closed fracture (principal) | CPT/HCPCS: 97760 ==

== ENCOUNTER → 2020-06-02 12:32 | Outpatient (CLI) | payer MEDICAID, SELFPAY ==
--- NOTE | 2020-06-02 12:36 | XR_ITS ---
PROCEDURE: XR ANKLE RT MIN 3V CLINICAL INDICATION: sp RT ankle postop, OUT OF CAM WALKER BOOT COMPARISON: CR XR ANKLE RT MIN 3V from 04/18/2020 CR XR ANKLE RT MIN 3V from 04/20/2020 CR XR ANKLE RT MIN 3V from 04/26/2020 CR XR ANKLE RT MIN 3V from 05/05/2020 FINDINGS: Prior ORIF. No change lateral fibular bone plate with 2 screws in the medial malleolar region with good alignment. Bony hypertrophic changes are present at the anterior distal tibia. There is good alignment. IMPRESSION: No change ORIF tib fib Dictated by: Paresh Li MD 06/02/2020 16:23 Paresh Li MD in [place] 06/02/2020 16:23
== END ==
PROVIDERS: PCP Family Medicine; Visit Provider Orthopaedic Surgery
DX: S82.853A Displaced trimalleolar fracture of unspecified lower leg, initial encounter for closed fracture (principal)
CPT/HCPCS: 73610

== ENCOUNTER → 2020-06-24 13:34 | Outpatient (CLI) | payer MEDICAID, SELFPAY ==
--- NOTE | 2020-06-24 13:40 | XR_ITS ---
PROCEDURE: XR ANKLE RT MIN 3V CLINICAL INDICATION: ankle fracture fu; out of boot Follow-up fracture COMPARISON: CR XR ANKLE RT MIN 3V from 04/20/2020 CR XR ANKLE RT MIN 3V from 04/26/2020 CR XR ANKLE RT MIN 3V from 05/05/2020 CR XR ANKLE RT MIN 3V from 06/02/2020 FINDINGS: Good alignment status post ORIF by malleolar fracture. No change in hardware. Retro line barely visible. IMPRESSION: Good alignment healing distal tib fib fracture Dictated by: Paresh Li MD 06/24/2020 16:02 Paresh Li MD in [place] 06/24/2020 16:02
== END ==
PROVIDERS: PCP Family Medicine; Visit Provider Orthopaedic Surgery
DX: S82.851A Displaced trimalleolar fracture of right lower leg, initial encounter for closed fracture (principal)
CPT/HCPCS: 73610

== ENCOUNTER → 2020-06-30 16:41 | Outpatient (CLI) | payer MEDICAID, SELFPAY ==
[2020-06-30 16:44] LABS: MANUAL DIFFERENTIAL MANUAL DIFFERENTIAL (MANUAL DIFF)
[2020-06-30 17:06] LABS: Basophils % 0.5 % (0.1-2.0); Eosinophils # 0.2 K/mm3 (0.0-0.4); Eosinophils % 2.7 % (0.1-12.0); Hemoglobin 12.3 g/dL (12.2-16.2); Lymphocytes # 1.7 K/mm3 (0.7-4.5); Lymphocytes % 19.4 % (10-50); Mean Corpuscular HGB Conc 33.2 g/dL (31.8-35.4); Mean Corpuscular Hemoglobin 33.3 pg (27.0-31.2); Mean Corpuscular Volume 100.3 fl (81-99); Mean Platelet Volume 8.2 fl (7.4-10.4); Monocytes # 0.5 K/mm3 (0.1-1.0); Monocytes % 5.4 % (1.7-9.3); Neutrophils # 6.1 K/mm3 (1.8-7.8); Platelet Count 390 K/mm3 (142-424); Red Blood Count 3.69 M/mm3 (4.20-5.40); Red Cell Distribution Width 15.3 % (11.5-17.5); White Blood Count 8.5 K/mm3 (4.8-10.8)
[2020-06-30 17:49] LABS: Chloride 108 mmol/L (98-107); Potassium 4.5 mmoL/L (3.5-5.1); Sodium 140 mmol/L (136-145)
[2020-06-30 17:52] LABS: Anion Gap 10.5 mEq/L (5-15); Blood Urea Nitrogen 5 mg/dl (7-17); Carbon Dioxide 26 mmol/L (22.0-30.0); Estimated Glomerular Filt Rate 86 ml/min (>60); GFR (African American) 104 ML/MIN (>60)
[2020-06-30 17:53] LABS: Calcium 9.2 mg/dl (8.4-10.2); Glucose 89 mg/dl (74-100)
[2020-06-30 17:58] LABS: C-Reactive Protein 50.3 mg/L (0-4)
[2020-06-30 17:59] LABS: Erythrocyte Sedimentation Rate 94 mm/hr (0-30)
[2020-06-30 20:07] LABS: Lymphocytes % 24 % (10-50); Monocytes % 5 % (2-9); Neutrophils % 71 % (42-76); Total Cells Counted 100
[2020-06-30 20:08] LABS: Platelet Estimate Normal; RBC Morphology Normal
[2020-06-30 20:09] LABS: Macrocytosis 1+
[2020-07-01 06:55] LABS: Coronavirus 19 IgG Antibody Negative (Negative); Coronavirus 19 IgM Antibody Negative (Negative)
== END ==
PROVIDERS: Visit Provider Orthopaedic Surgery
DX: Z01.89 Encounter for other specified special examinations (principal); S82.851A Displaced trimalleolar fracture of right lower leg, initial encounter for closed fracture; T81.30XA Disruption of wound, unspecified, initial encounter; T84.498A Other mechanical complication of other internal orthopedic devices, implants and grafts, initial encounter
CPT/HCPCS: 36415; 80048; 85007; 85014; 85018; 85048; 85049; 85651; 86140; 86328

== ENCOUNTER 2020-07-01 06:20 | Day surgery (SDC) | payer MEDICAID, SELFPAY ==
[2020-07-01] VITALS (14 sets, daily range): BP systolic 124–184; BP diastolic 63–100; PULSE 54–76; RESP 14–20; TEMP 36.3–43; O2SAT 95–99; BMI 35.5
--- NOTE | 2020-07-01 07:57 | P.PN_ITS ---
[facility] Anesthesia Checklist - Structural Data Admitted From: Home Planned Operative Procedure/s: removal hardware r ankle Consent for Planned Operative Procedure(s) Verified: Yes - Additional verifications Anesthesia Reactions: No Hx Blood Transfusions: No Blood Transfusion Reaction: No - Airway Assessment C-Spine Mobility Assessed: Yes TMJ Mobility Assessed: Yes Dentition: Dentures-good fit - Neurological Assessment Level of Consciousness: Awake, Alert, Appropriate - Anesthesia Plan Anesthesia Risk discussed: Yes Anesthesia Plan: Verified ASA Class: III Anesthesia Type: General [facility] History I have reviewed the patient's past medical history: Yes Medical History: Reports:: Anxiety, Atherosclerotic Heart Disease, Congestive Heart Failure, Chronic Obstructive Pulmonary Disease (COPD), Coronary Artery Disease, Depression, Gall Bladder Disease, Gastroesophageal Reflux Di sease(GERD), Hypertension, Lung Disease, Migraine, MRSA Denies:: Cancer, Diabetes Mellitus Type 1, Diabetes Mellitus Type 2, Internal Pacemaker, Seizures *Have you ever received a pneumonia vaccine?: Yes *Have you received a flu vaccine this season?: No Other Medical History: Reports: Anemia, Arthritis, Fibromyalgia, Hypothyroidism, Liver Disease, Sinus Problems, Thyroid Disease, Other. Denies: Blood Transfusion Reaction Anesthesia experience/problems:: none Laterality Cases: Bilateral: Tonsillectomy Other Surgeries: Yes: No Previous Surgery, Angioplasty, Cardiac Catheterization, Cholecystectomy, Colonoscopy, Dilation and Curettage, Hysterectomy-Total, Other. No: Pacemaker Amputation: No Fractures: No - *Social History Last grade of school completed: Advanced degree Smoking Status: Current every day smoker Tobacco Type: cigarettes # Packs/Day (cigarettes): 1 #Yrs smoked (if former smoker): 1 Alcohol Intake: current Alcohol Intake Frequency:: holidays/special occasions only Substance Use Type: denies use *Occupational Status:: unemployed Housing: house Household Members: family *Travel in the last 8 weeks: None - Psychiatric History Pschychiatric History:: Reports:: Anxiety, Depression Family Hx:: Anemia, Cancer, Stroke, Alcoholism
--- NOTE | 2020-07-01 09:23 | HMH.ANESI ---
[facility] Anesthesia Record Part I Intake, IV Amount: 1,800 Estimated blood loss (mL): 0 Urine output (mL): 0 Blood Pressure: 184/100 SaO2: 99 Pulse Rate: 70 Respiratory Rate: 14 Temperature: 97.4 F Patient is:: Awake, Stable Stable to PACU at:: 09:20
--- NOTE | 2020-07-01 09:40 | XR_ITS ---
PROCEDURE: XR ANKLE RT MIN 3V CLINICAL INDICATION: post sx COMPARISON: CR XR ANKLE RT MIN 3V from 06/24/2020 FINDINGS: The long distal fibular metallic plate and threaded screws have all been removed. The 3 screws remain in the medial malleolus and distal tibia. The ankle mortise appears grossly normal. The posterior splint is noted in place. IMPRESSION: Interval removal of the fibular metallic plate and screws, satisfactory placement of posterior splint Dictated by: Dr. Ruslan Lyn MD 07/01/2020 09:46 Dr. Ruslan Lyn MD in [place] 07/01/2020 09:46
--- NOTE | 2020-07-01 11:39 | HMH.ANESII ---
[facility] Anesthesia Record Part II Discharge Time: 10:09 Destination: Surgical Day Care (OP Surgery) PACU nurse assessment reviewed?: Yes Patient Condition:: Good Anesthesia Complications:: None Swallowing reflex intact?: Yes Cyanosis?: No Blood Pressure: 124/71 Pulse Rate: 61 Temperature: 98.1 F Mental Status: Alert & Oriented Pain level:: 0 Nausea and/or vomitting:: None Intake, IV Amount: 0
--- NOTE | 2020-07-01 15:39 | HMH.OPNOTE ---
Date of procedure: 07/01/20 Pre-op Diagnosis:: 1) s/p ORIF R ankle 04/26/20; trimalleolar fracture-dislocation 2) post-operative dehiscence of lateral R ankle wound, ~1.5cm 3) exposed orthopaedic hardware 4) tobacco use disorder 5) obesity; BMI 35.5 Post-op Diagnosis:: 1) s/p ORIF R ankle 04/26/20; trimalleolar fracture-dislocation 2) post-operative dehiscence of lateral R ankle wound, ~1.5cm 3) exposed orthopaedic hardware 4) tobacco use disorder 5) obesity; BMI 35.5 Procedure performed:: 1) removal of hardware R ankle; lateral fibula plate + screws 2) curettage/grafting bone defects R fibula 3) bone biopsy R distal fibula 4) closure of wound dehiscence R lateral ankle 5) posterior splint application R ankle Surgeon:: Ave Finn MD Decator Operator(s):: ZACHARY Ellsworth IT INFRASTRUCTURE ENGINEER:: Steven Cormier Anesthesia: GETA Estimated blood loss (mL): 10 Clinical Note:: 59yo F s/p ORIF R ankle (distal fibula + medial malleolus) 04/26/20. This was initially a trimalleolar ankle fracture-dislocation sustained on 04/16/20. Surgery was delayed 10 days due to significant swelling of the ankle. She is currently 9 weeks post-op, has been WBAT in a CAM boot. She presented to the office yesterday with complaints of 1-2 days of mild redness and widening of her distal incision, with scan discharge. No fevers or chills reported, no purulence observed. Her most recent XR on 06/24/20 shows fractures are seemingly healed and I recommend hardware removal. I explained to the patient that wound healing in this location over an exposed plate, particularly in a heavy smoker, is unlikely to be successful, and if the plate is exposed, it has already been exposed to skin bacteria that may lead to a deep soft tissue infection or osteomyelitis. I discussed the risks of the procedure with the patient, including bleeding, infection, re-fracture through the previous site of injury, continuing pain/swelling, possibile need for prolonged IV antibiotics, and possible need for further surgery in the future. I also continued to encourage smoking cessation. The patient vocalized understanding and is in agreement with this plan. Operative findings:: Andrey distal fibular plate (10-hole), 8 plate screws + 1 lag screw -- all removed intact and removal of hardware confirmed on fluroscopy no necrotic tissue/skin, no periwound erythema, no purulence seen wound culture swabs x2 taken, bone sent for pathology and culture, and hardware sent for culture Operative note:: The patient was identified in preoperative holding and the R ankle signed by myself. Surgical consent was verified with the patient and all questions answered. She was then seen by anesthesia and the decision made to performed general anesthesia w/o nerve block. The patient was then taken to the operating room and placed supine on the OR table. No antibiotics were given yet; 1 gram vancomycin was on hold to give as soon as hardware was removed and cultures taken. General anesthesia was induced with an LMA. Once the patient was asleep, the splint was removed from the right ankle and soft tissues examined. The medial incision has healed very well. The lateral incision dehisced 1.5cm at its distal-most extent, with 0.75cm of plate exposed. There was no periwound erythema or active drainage. Nonsterile tourniquet was placed on the right thigh and the right lower leg and ankle was prepped and draped in the usual sterile fashion with the lower leg supported on a radiolucent bolster (bone foam). Betadine prep was used. Timeout was performed, identifying the correct patient, correct procedure, and correct site. The procedure was begun by elevating the right lower extremity for 3 minutes and then elevating the tourniquet to 250 mmHg. The Esmarch was not used to exsanguinate the leg. Longitudinal incision was made over the lateral aspect of the ankle, using the patient's previous incision. The incision had healed well for most of its length
== END 2020-07-01 10:55 | disposition home or self-care (01) ==
LOC: OR 06:20
PROVIDERS: PCP Family Medicine; Visit Provider Orthopaedic Surgery
PROC: (CPT 20680; principal; 2020-07-01 07:00)
DX: T84.196A Other mechanical complication of internal fixation device of bone of right lower leg, initial encounter (principal); T81.32XA Disruption of internal operation (surgical) wound, not elsewhere classified, initial encounter; S82.851G Displaced trimalleolar fracture of right lower leg, subsequent encounter for closed fracture with delayed healing; Z88.0 Allergy status to penicillin; Z88.2 Allergy status to sulfonamides; Z88.1 Allergy status to other antibiotic agents; Z79.899 Other long term (current) drug therapy; E03.9 Hypothyroidism, unspecified
CPT/HCPCS: 20680; 73610; 87070; 87075; 87077; 87186; 87205; 96374; C1713; J2405; J3370

== ENCOUNTER → 2020-07-07 15:46 | Outpatient (CLI) | payer MEDICAID, SELFPAY ==
[2020-07-07 15:47] LABS: MANUAL DIFFERENTIAL MANUAL DIFFERENTIAL (MANUAL DIFF)
--- NOTE | 2020-07-07 15:55 | XR_ITS ---
PROCEDURE: XR ANKLE RT MIN 3V CLINICAL INDICATION: s/p Lt ankle hardware removal COMPARISON: CR XR ANKLE RT MIN 3V from 05/05/2020 CR XR ANKLE RT MIN 3V from 06/02/2020 CR XR ANKLE RT MIN 3V from 06/24/2020 CR XR ANKLE RT MIN 3V from 07/01/2020 FINDINGS: No change status post hardware removal with posterior splint in place. Two screws are present in the medial malleolar region. Mottled density present involving the distal aspect of the fibula from the previous hardware removal. Lucency is noted at the distal fibular region nonspecific. IMPRESSION: No change status post hardware removal with good alignment Dictated by: Paresh Li MD 07/07/2020 16:12 Paresh Li MD in [place] 07/07/2020 16:12
[2020-07-07 16:14] LABS: Basophils % 0.5 % (0.1-2.0); Eosinophils # 0.2 K/mm3 (0.0-0.4); Eosinophils % 2.5 % (0.1-12.0); Hematocrit 45.5 % (37.0-47.0); Hemoglobin 13.2 g/dL (12.2-16.2); Lymphocytes % 20.8 % (10-50); Mean Corpuscular HGB Conc 29.1 g/dL (31.8-35.4); Mean Corpuscular Hemoglobin 29.7 pg (27.0-31.2); Mean Corpuscular Volume 102.1 fl (81-99); Mean Platelet Volume 8.1 fl (7.4-10.4); Monocytes # 0.4 K/mm3 (0.1-1.0); Monocytes % 4.1 % (1.7-9.3); Neutrophils # 6.8 K/mm3 (1.8-7.8); Neutrophils % 72.2 % (37.0-80.0); Platelet Count 457 K/mm3 (142-424); Red Blood Count 4.46 M/mm3 (4.20-5.40); Red Cell Distribution Width 15.7 % (11.5-17.5); White Blood Count 9.4 K/mm3 (4.8-10.8)
[2020-07-07 17:01] LABS: Erythrocyte Sedimentation Rate 32 mm/hr (0-30)
[2020-07-07 17:33] LABS: Chloride 106 mmol/L (98-107); Potassium 3.9 mmoL/L (3.5-5.1); Sodium 137 mmol/L (136-145)
[2020-07-07 17:36] LABS: Anion Gap 9.9 mEq/L (5-15); Blood Urea Nitrogen 7 mg/dl (7-17); Carbon Dioxide 25 mmol/L (22.0-30.0); Estimated Glomerular Filt Rate 73 ml/min (>60); GFR (African American) 89 ML/MIN (>60)
[2020-07-07 17:37] LABS: Calcium 9.7 mg/dl (8.4-10.2); Glucose 94 mg/dl (74-100)
[2020-07-07 17:40] LABS: Anisocytosis 1+; Eosinophils % 2 % (0-3); Lymphocytes % 21 % (10-50); Macrocytosis 1+; Monocytes % 4 % (2-9); Neutrophils % 73 % (42-76); Platelet Estimate Slight Increase; Total Cells Counted 100
[2020-07-07 17:42] LABS: C-Reactive Protein 10.7 mg/L (0-4)
== END ==
PROVIDERS: Visit Provider Orthopaedic Surgery
DX: S82.853A Displaced trimalleolar fracture of unspecified lower leg, initial encounter for closed fracture (principal); T81.40XA Infection following a procedure, unspecified, initial encounter
CPT/HCPCS: 36415; 73610; 80048; 85007; 85014; 85018; 85048; 85049; 85651; 86140

== ENCOUNTER 2020-07-12 16:48 | Inpatient (IN) | payer MEDICAID, SELFPAY ==
[2020-07-12] VITALS (11 sets, daily range): BP systolic 92–135; BP diastolic 55–89; PULSE 66–96; RESP 17–18; TEMP 36.9; O2SAT 94–100; BMI 35.2
--- NOTE | 2020-07-12 16:36 | ECG_ITS ---
APPROVED REPORT Exam: Resting ECG HR:98 bpm ECG Measurements Heart Rate 98 AXES MA 158 P 51 QRSd 88 QRS 56 QT 354 T 23 QTc 451 Conclusion Normal sinus rhythm Left atrial abnormality Nonspecific ST and T wave abnormality Abnormal ECG Electronically signed by : Jason Spear, 07/17/2020 09:51:30
--- NOTE | 2020-07-12 16:55 | XR_ITS ---
PROCEDURE: XR CHEST 2V CLINICAL HISTORY: Chest pain COMPARISON: CR XR CHEST PORTABLE from 09/02/[address] CHEST WO/W CON from 10/12/2019 CR XR CHEST 2V from 10/22/2019 CR XR CHEST 2V from 04/18/[address] CHEST WO CON from 07/12/2020 FINDINGS: There is cardiomegaly with mild pulmonary venous congestion. There is mild diffuse increased density of the right lung compared to the left suspicious for diffuse pneumonia. No obvious effusion. No acute bony anomalies. No acute bony abnormalities. IMPRESSION: Cardiomegaly with CHF with diffuse increased density of the right lung suspicious for diffuse pneumonia or unilateral pulmonary edema. Dictated by: Paresh Li MD 07/13/2020 05:37 Paresh Li MD in [facility] 07/13/2020 05:37
--- NOTE | 2020-07-12 17:29 | HMH.EDGENADL ---
ED Disposition Clinical Impression: Atypical chest pain, Upper abdominal pain Bilateral pneumonia Qualifiers: Pneumonia type: due to unspecified organism Lung location: unspecified part of lung Qualified Code(s): J18.9 - Pneumonia, unspecified organism Disposition: Admitted as Observation Condition on Discharge: Serious - Critical Care Critical Care Time: No Attestation: On 07/12/20, the high probability of a clinically significant, sudden or life threatening deterioration of the following system(s) required my full and direct attention, intervention and personal management. The time I documented below is in addition to time spent performing reported procedures but includes the following listed in this critical care notation. Medical Decision Making - Medical Records Medical records reviewed: Yes: I reviewed the patient's medical records. - Adolph Inquiry Pt receiving controlled substance: Yes Adolph was queried for this patient: No Reason not queried -: Emergent pt cond-no time Risks and benefits of using a controlled substance: were not discussed with pt by me Vital Signs: 07/12/20 16:49 07/12/20 19:00 07/12/20 19:30 Temperature 98.4 F Temperature Source Oral Pulse Rate [Right Brachial] 96 H 75 84 Respiratory Rate 18 17 17 Blood Pressure [Right Arm] 92/55 L 108/89 L 112/84 Blood Pressure Mean [Right Arm] 67 95 93 Blood Pressure Source [Right Arm] Automatic Cuff Automatic Cuff Automatic Cuff Blood Pressure Position [Right Arm] Sitting Supine Supine 02 Sat by Pulse Oximetry 97 98 98 Oxygen Delivery Method Room Air Nasal Cannula Nasal Cannula Oxygen Flow Rate (LPM) 2 2 07/12/20 20:00 07/12/20 20:30 07/12/20 21:00 Temperature Temperature Source Pulse Rate [Right Brachial] 90 75 70 Respiratory Rate 17 17 17 Blood Pressure [Right Arm] 114/64 135/65 119/80 Blood Pressure Mean [Right Arm] 80 88 93 Blood Pressure Source [Right Arm] Automatic Cuff Automatic Cuff Automatic Cuff Blood Pressure Position [Right Arm] Supine Supine Supine 02 Sat by Pulse Oximetry 98 94 L 99 Oxygen Delivery Method Nasal Cannula Room Air Nasal Cannula Oxygen Flow Rate (LPM) 2 2 07/12/20 21:30 Temperature Temperature Source Pulse Rate [Right Brachial] 70 Respiratory Rate 18 Blood Pressure [Right Arm] 116/64 Blood Pressure Mean [Right Arm] 81 Blood Pressure Source [Right Arm] Automatic Cuff Blood Pressure Position [Right Arm] Supine 02 Sat by Pulse Oximetry 99 Oxygen Delivery Method Nasal Cannula Oxygen Flow Rate (LPM) 2 - Lab Data Lab results reviewed: Yes: I reviewed the patient's lab results. Lab Results 07/12/20 17:32: SARS-CoV-2 IgG Ab (Rapid) Negative, SARS-CoV-2 IgM Ab (Rapid) Negative 07/12/20 17:35: WBC 21.5 H*, RBC 3.69 L, Hgb 11.7 L, Hct 38.4, MCV 104.1 H, MCH 31.6 H, MCHC 30.4 L, RDW 15.3, Plt Count 359, MPV 8.2, Neut % (Auto) 89.6 H, Lymph % (Auto) 4.0 L, Cotton % (Auto) 4.0, Eos % (Auto) 2.3, Baso % (Auto) 0.1, Neut # (Auto) 19.2 H, Lymph # (Auto) 0.9, Cotton # (Auto) 0.9, Eos # (Auto) 0.5 H, Baso # (Auto) 0.0, Total Counted 100, Neutrophils % (Manual) 91 H, Lymphocytes % (Manual) 5 L, Monocytes % (Manual) 2, Eosinophils % (Manual) 1, Basophils % (Manual) 1.0, Platelet Estimate Normal, Anisocytosis 1+, Macrocytosis 1+ 07/12/20 17:35: Sodium 137, Potassium 3.8, Chloride 107, Carbon Dioxide 21 L, Anion Gap 12.8, BUN 16, Creatinine 1.30 H, Estimated Creat Clear 68, Estimated GFR 42 L, Est GFR ( Amer) 51 L, Glucose 117 H, Calcium 9.6, Troponin I 0.10 H 07/12/20 17:35: D-Dimer 1.16 07/12/20 17:35: Total Bilirubin 0.4, Direct Bilirubin 0.2, Conjugated Bilirubin 0.0, Indirect Bilirubin 0.2, Unconjugated Bilirubin 0.2, AST 62 H, ALT 19, Alkaline Phosphatase 113, Total Protein 6.6, Albumin 3.2 L 07/12/20 19:50: Lactate 2.2 H 07/12/20 20:00: Urine Color Yellow, Urine Appearance Clear, Urine pH 6.0, Ur Specific [place] 1.025, Urine Protein 1+, Urine Glucose (UA) Negative, Urine Ketones Negative, Urine Blood Negative,
[2020-07-12 17:51] LABS: Basophils % 0.1 % (0.1-2.0); Eosinophils # 0.5 K/mm3 (0.0-0.4); Eosinophils % 2.3 % (0.1-12.0); Hematocrit 38.4 % (37.0-47.0); Hemoglobin 11.7 g/dL (12.2-16.2); Lymphocytes # 0.9 K/mm3 (0.7-4.5); Mean Corpuscular HGB Conc 30.4 g/dL (31.8-35.4); Mean Corpuscular Hemoglobin 31.6 pg (27.0-31.2); Mean Corpuscular Volume 104.1 fl (81-99); Mean Platelet Volume 8.2 fl (7.4-10.4); Monocytes # 0.9 K/mm3 (0.1-1.0); Neutrophils # 19.2 K/mm3 (1.8-7.8); Neutrophils % 89.6 % (37.0-80.0); Platelet Count 359 K/mm3 (142-424); Red Blood Count 3.69 M/mm3 (4.20-5.40); Red Cell Distribution Width 15.3 % (11.5-17.5); White Blood Count 21.5 K/mm3 (4.8-10.8)
[2020-07-12 17:57] LABS: Alanine Aminotransferase 19 U/L (12-78); Albumin Level 3.2 g/dl (3.5-5.0); Alkaline Phosphatase 113 U/L (38-126); Anion Gap 12.8 mEq/L (5-15); Aspartate Amino Transferase 62 U/L (14-36); Bilirubin,Direct 0.2 mg/dl (0.0-0.4); Bilirubin,Indirect 0.2 mg/dL (0.0-0.9); Bilirubin,Total 0.4 mg/dl (0.2-1.3); Bilirubin,Unconjugated 0.2 mg/dL (0.0-1.1); Blood Urea Nitrogen 16 mg/dl (7-17); Calcium 9.6 mg/dl (8.4-10.2); Carbon Dioxide 21 mmol/L (22.0-30.0); Chloride 107 mmol/L (98-107); Creatinine Clearance Estimated 68 mL/min (50-200); Estimated Glomerular Filt Rate 42 ml/min (>60); GFR (African American) 51 ML/MIN (>60); Glucose 117 mg/dl (74-100); Potassium 3.8 mmoL/L (3.5-5.1); Sodium 137 mmol/L (136-145); Total Protein,Serum 6.6 g/dl (6.3-8.2)
[2020-07-12 17:59] LABS: MANUAL DIFFERENTIAL MANUAL DIFFERENTIAL (MANUAL DIFF)
[2020-07-12 18:02] LABS: D-Dimer 1.16 ug/mL (0.15-8.0)
[2020-07-12 18:24] LABS: Eosinophils % 1 % (0-3); Lymphocytes % 5 % (10-50); Monocytes % 2 % (2-9); Neutrophils % 91 % (42-76); Platelet Estimate Normal; Total Cells Counted 100
[2020-07-12 18:25] LABS: Anisocytosis 1+; Macrocytosis 1+
[2020-07-12 18:35] LABS: Coronavirus 19 IgG Antibody Negative (Negative); Coronavirus 19 IgM Antibody Negative (Negative)
--- NOTE | 2020-07-12 19:00 | CT_ITS ---
PROCEDURE: CT CHEST WO CON CLINICAL INDICATION: pneumonia Pneumonia, shortness of air, chest pain, smoker, COVID 19 COMPARISON: CT CT CHEST WO/W CON from 10/12/2019 TECHNIQUE: Axial images obtained with sagittal and coronal reformats. All CT scans at the facility use one or more dose reduction, viz: automated exposure control, ma/kV adjustment per patient size (including targeted exams where dose is matched to indication, i.e. head), or iterative reconstruction technique. FINDINGS: There is cardiomegaly. There is mediastinal adenopathy. There is mild prominence of the main pulmonary artery with a pulmonary artery/aorta ratio of greater than 1. The main pulmonary artery measures 3.8 cm in transverse dimension. There is a small hiatal hernia versus small epiphrenic diverticulum. There is diffuse bilateral ground-glass opacification/crazy paving appearance. No obvious effusion. No cavitation. There is mild upper thoracic curvature convex left with degenerative changes in the thoracic spine. Please see abdomen report for abdominal findings. IMPRESSION: 1. Diffuse ground-glass opacification bilaterally right greater than left with crazy paving pattern. Consider atypical pneumonia, viral pneumonia/Covid 19 pneumonia. Pulmonary edema, hypersensitivity pneumonitis and pulmonary hemorrhage are also consideration. 2. Mediastinal adenopathy which appears slightly worse compared to the previous exam. 3. Enlarged pulmonary trunk suggesting pulmonary arterial hypertension Dictated by: Paresh Li MD 07/13/2020 06:35 Paresh Li MD in [place] 07/13/2020 06:35
--- NOTE | 2020-07-12 19:54 | CT_ITS ---
PROCEDURE: CT ABDOMEN PELVIS WO CON CLINICAL INDICATION: abdo pain Shortness of air, epigastric abdominal pain COMPARISON: CT ABDPELW CT ABD PELVIS W/ CONTRAST from 01/14/2017 TECHNIQUE: Axial images obtained with sagittal and coronal reformats. All CT scans at the facility use one or more dose reduction, viz: automated exposure control, ma/kV adjustment per patient size (including targeted exams where dose is matched to indication, i.e. head), or iterative reconstruction technique. FINDINGS: LOWER THORAX: Please see chest CT report ABDOMEN & PELVIS: Prior cholecystectomy. Multiple splenic granulomas are present. The liver, spleen, pancreas, and adrenal glands show no acute finding. There are multiple left renal calculi measuring up to 6 mm in the upper pole and lower pole. No hydronephrosis. No ureteral calculi. Nonspecific bowel gas pattern with fluid-filled loops of small bowel minimally prominent when a few scattered air-fluid levels. No evidence of diverticulitis or appendicitis. There are few colonic diverticula. No acute bony findings. There is a small hiatal hernia. There is mild diffuse subcutaneous edema IMPRESSION: 1. Nonspecific small bowel gas pattern with mildly prominent fluid-filled small bowel loops. Ileus or enteritis is considered. 2. Left-sided nephrolithiasis. 3. Other nonacute findings as described above. Dictated by: Paresh Li MD 07/13/2020 06:27 Paresh Li MD in [facility] 07/13/2020 06:27
[2020-07-12 20:17] LABS: Microscopic, Urine URINE MICROSCOPIC (MICROSCOPIC)
[2020-07-12 20:21] LABS: Appearance,Urine CLEAR (Clear); Bilirubin,Urine Negative (Negative); Blood, Urine Negative (Negative); Color,Urine YELLOW (Yellow); Glucose,Urine (UA) Negative (Negative); Ketones,Urine Negative (Negative); Leukocyte Esterase,Urine Negative (Negative); Nitrate,Urine Negative (Negative); Protein,Urine 1+ (Negative); Specific Gravity, Urine 1.025 (1.005-1.030); Urobilinogen,Urine 0.2 EU/dl (0.2)
[2020-07-12 20:27] LABS: Lactic Acid 2.2 mmol/L (0.7-2.1)
--- NOTE | 2020-07-12 20:29 | PC.NURSE ---
Pt returned to room from radiology
[2020-07-12 20:52] LABS: Bacteria,Urine 1+ /lpf; RBC,Urine Occasional #/hpf (0-3)
[2020-07-12 21:17] LABS: Troponin I 0.15 ng/ml (0.00-0.034)
[2020-07-12 23:15] LABS: Troponin I 0.16 ng/ml (0.00-0.034)
[2020-07-12 23:43] LABS: Reflex Lactic Add Lactic Reflex
[2020-07-12 23:55] LABS: Lactic Acid Follow Up (RFLX 1) 1.5 mmol/L (0.7-2.1)
[2020-07-13] VITALS (13 sets, daily range): BP systolic 101–136; BP diastolic 51–89; PULSE 63–72; RESP 16–18; TEMP 36.7–37.5; O2SAT 84–99; BMI 35.7; BMI 35.4
--- NOTE | 2020-07-13 00:23 | PC.NURSE ---
Report called to MAYO Rose at this time
--- NOTE | 2020-07-13 03:01 | PC.NURSE ---
Addendum entered by Mercy Felix RN 07/13/20 03:12: Pt education provided regarding use of incentive spirometer. Pt demonstrates understanding of need for use and how to use IS. Original Note: Pt admitted this shift. Pt c/o abdominal pain upon admission, morphine given per orders. Morphine was effective for pain. Pt slept well after being admitted. Pt oxygen sats mid-90's on 4L/min via nc. Oxygen delivery less than 4L/min results in sats <90. Pt admitted with scattered bruising on bilateral arms. Pt also has incision from previous surgery on lateral side of right leg/ankle, cast in place. Unable to take photos of incision due to cast. Right leg elevated with pillow. VSS at this time. No s/sx pain/distress noted at this time.
[2020-07-13 06:52] LABS: Basophils % 0.2 % (0.1-2.0); Eosinophils # 0.2 K/mm3 (0.0-0.4); Eosinophils % 1.3 % (0.1-12.0); Hematocrit 35.8 % (37.0-47.0); Hemoglobin 10.8 g/dL (12.2-16.2); Lymphocytes # 1.3 K/mm3 (0.7-4.5); Lymphocytes % 7.2 % (10-50); Mean Corpuscular HGB Conc 30.2 g/dL (31.8-35.4); Mean Corpuscular Hemoglobin 31.7 pg (27.0-31.2); Mean Corpuscular Volume 104.9 fl (81-99); Monocytes # 0.6 K/mm3 (0.1-1.0); Monocytes % 3.3 % (1.7-9.3); Neutrophils # 15.7 K/mm3 (1.8-7.8); Platelet Count 290 K/mm3 (142-424); Red Blood Count 3.42 M/mm3 (4.20-5.40); Red Cell Distribution Width 15.1 % (11.5-17.5); White Blood Count 17.9 K/mm3 (4.8-10.8)
[2020-07-13 06:55] LABS: MANUAL DIFFERENTIAL MANUAL DIFFERENTIAL (MANUAL DIFF)
[2020-07-13 06:57] LABS: Chloride 109 mmol/L (98-107); Potassium 3.4 mmoL/L (3.5-5.1); Sodium 136 mmol/L (136-145)
[2020-07-13 07:00] LABS: Anion Gap 7.4 mEq/L (5-15); Blood Urea Nitrogen 15 mg/dl (7-17); Carbon Dioxide 23 mmol/L (22.0-30.0); Creatinine Clearance Estimated 82 mL/min (50-200); Estimated Glomerular Filt Rate 51 ml/min (>60); GFR (African American) 62 ML/MIN (>60)
[2020-07-13 07:01] LABS: Calcium 9.2 mg/dl (8.4-10.2); Glucose 93 mg/dl (74-100)
--- NOTE | 2020-07-13 07:28 | XR_ITS ---
PROCEDURE: XR CHEST PORTABLE PICC PLAC CLINICAL HISTORY: Confirm PICC line placement COMPARISON: CR XR CHEST 2V from 10/22/2019 CR XR CHEST 2V from 04/18/[address] CHEST WO CON from 07/12/2020 CR XR CHEST 2V from 07/12/2020 FINDINGS: Right upper extremity PICC line tip is projected in the right neck approximately 7 cm cephalad to the expected position of the subclavian vein. There is cardiomegaly with mild pulmonary venous congestion. Faint increased density of the right lung once again noted. IMPRESSION: Malposition of the right PICC line as described above. CHF with faint increased density of the right lung suggesting airspace disease. Dictated by: Paresh Li MD 07/13/2020 16:02 Paresh Li MD in [place] 07/13/2020 16:02
--- NOTE | 2020-07-13 07:29 | P.CONPHA_ITS ---
[facility] Pharmacy VTE Monitoring - Patient Demographics Admission date: 07/13/20 Report Date: 07/13/20 Time: 07:29 Allergies/Adverse Reactions: Patient Allergies Cephalosporins Allergy (Verified 07/12/20 16:56) RASH erythromycin base Allergy (Verified 07/12/20 16:56) Hives minocycline Allergy (Verified 07/12/20 16:56) RASH penicillin G Allergy (Verified 07/12/20 16:56) Hives Sulfa (Sulfonamide Antibiotics) Allergy (Verified 07/12/20 16:56) RASH Height: 1.63 m Weight: 94.4 kg Patient Problems: Current Active Problems Atypical chest pain (Acute) Bilateral pneumonia (Acute) Upper abdominal pain (Acute) - VTE Risk Labs: VTE Related Lab Results Hgb 10.8 g/dL (12.2-16.2) L 07/13/20 06:00 Hct 35.8 % (37.0-47.0) L 07/13/20 06:00 Plt Count 290 K/mm3 (142-424) 07/13/20 06:00 BUN 15 mg/dl (7-17) 07/13/20 06:00 Creatinine 1.10 mg/dl (0.52-1.04) H 07/13/20 06:00 Estimated Creat Clear 82 mL/min (50-200) 07/13/20 06:00 Was VTE Risk Assessment Performed: Yes VTE Score: 9 VTE Risk Level: Moderate Risk Clinical Trial Participant: No - Prophylaxis VTE Prophylaxis Ordered?: Yes Types of VTE Prophylaxis: TEDS Knee High
--- NOTE | 2020-07-13 07:30 | HMH.HP ---
*Admission Date: 07/13/20 *Chief complaint: Nausea, vomiting, diarrhea *History of present illness: 59-year-old female with COPD , pulmonary hypertension, and history of ankle fracture dislocation with subsequent MRSA wound infection presented to the emergency department with 3 days of chills, malaise, suspected fevers, nausea, vomiting, diarrhea with mild shortness of breath. She had been encouraged to seek care by friends. She had no known COVID 19 exposures. Work-up in the emergency department raise suspicion for viral pneumonia and COVID 19 testing was positive. Patient was admitted due to hypoxia with O2 sats in the 80s on room air. Patient has required supplemental oxygen of 2 to 4 L/min via the nasal cannula to maintain sats in the 90s and above 94%. Nursing staff notes since admission any movement or initiating conversation will result in desaturation into the 80s despite use of supplemental oxygen. Patient's primary complaint this morning is her abdominal pain along with nausea and chest pain. Patient claims a history of COPD for which she uses albuterol 3 times daily. She denies personal history of heart problems including congestive heart failure. Patient has undergone diagnostic catheterization at this facility. Last echocardiogram revealed evidence of pulmonary artery hypertension with raised right-sided heart pressures. Regarding the patient's postoperative wound she saw infectious disease on Saturday of this week and the decision was made to have the patient receive a PICC line for long-term IV vancomycin. [facility] History I have reviewed the patient's past medical history: Yes Medical History: Reports:: Anxiety, Atherosclerotic Heart Disease, Congestive Heart Failure, Chronic Obstructive Pulmonary Disease (COPD), Coronary Artery Disease, Depression, Gall Bladder Disease, Gastroesophageal Reflux Disease(GERD), Hypertension, Lung Disease, Migraine, MRSA Denies:: Cancer, Diabetes Mellitus Type 1, Diabetes Mellitus Type 2, Internal Pacemaker, Seizures *Have you ever received a pneumonia vaccine?: Yes *Have you received a flu vaccine this season?: Yes Other Medical History: Reports: Anemia, Arthritis, Fibromyalgia, Hypothyroidism, Liver Disease, Sinus Problems, Thyroid Disease, Other. Denies: Blood Transfusion Reaction Laterality Cases: Right: Other, Bilateral: Tonsillectomy Other Surgeries: Yes: No Previous Surgery, Angioplasty, Cardiac Catheterization, Cholecystectomy, Colonoscopy, Dilation and Curettage, Hysterectomy-Total, Other. No: Pacemaker Amputation: No Fractures: No - *Social History Smoking Status: Current every day smoker Tobacco Type: cigarettes # Packs/Day (cigarettes): 1 #Yrs smoked (if former smoker): 1 Alcohol Intake: never Alcohol Intake Frequency:: holidays/special occasions only Substance Use Type: denies use *Occupational Status:: unemployed Housing: house Household Members: family *Travel in the last 8 weeks: None - Psychiatric History Pschychiatric History:: Reports:: Anxiety, Depression Family Hx:: Anemia, Cancer, Stroke, Alcoholism Review of Systems - Constitutional Reports body ache(s), Reports chills, Reports fever(s), Reports headache(s), Reports lack of energy, Reports weakness, Denies weight gain, Denies weight loss - ENT Denies abnormal hearing, Denies bleeding gums - *Cardiovascular Reports chest pain, Reports chest pain at rest, Reports shortness of breath, Reports shortness of breath with activity - *Respiratory Reports chest congestion, Reports cough, Reports shortness of breath, Denies change in phlegm color - *Gastrointestinal Reports abdominal pain, Reports cramping, Reports loose stools, Reports heartburn - *Musculoskeletal Reports abnormal walking, Reports joint pain Meds Home Medications Medication Instructions Recorded Confirmed Type Trazodone HCl 200 mg PO HS PRN 05/03/19 07/12/20 History Tizanidine HCl [Zanaflex 4mg 4 mg PO BID PRN 07/30/19 07/12/20 History tab]
--- NOTE | 2020-07-13 09:13 | PC.NURSE ---
Dr. Khan asked for ID consult note from Dr. Rodriguez in [place]. Called Dr. Rodriguez's office ([phone]) and spoke to Heidi. Updated her on pt's situation and that she is COVID positive. Pt was seen in their office on 07/11/2020. She verbalized understanding and will fax ID consult note to ICU fax ([phone]). Made Dr. Khan aware.
--- NOTE | 2020-07-13 09:16 | HMH.PHACONS ---
- Pharmacy Consult Date: 07/13/20 Time: 09:16 Referring provider: DR. BURGER Reason for Consult:: VANCOMYCIN DOSING Allergies and ADEs:: Allergies Allergy/AdvReac Type Severity Reaction Status Date / Time Cephalosporins Allergy RASH Verified 07/12/20 16:56 erythromycin base Allergy Hives Verified 07/12/20 16:56 minocycline Allergy RASH Verified 07/12/20 16:56 penicillin G Allergy Hives Verified 07/12/20 16:56 Sulfa (Sulfonamide Allergy RASH Verified 07/12/20 16:56 Antibiotics) Home Medications:: Home Medications Medication Instructions Recorded Confirmed Type Trazodone HCl 200 mg PO HS PRN 05/03/19 07/12/20 History Tizanidine HCl [Zanaflex 4mg 4 mg PO BID PRN 07/30/19 07/12/20 History tab] Potassium Chloride [Micro-K 10mEq 20 meq PO BID #60 capsule.er 07/31/19 07/12/20 Rx cap] Furosemide [Furosemide 40MG tAB*] 40 mg PO NEEDED PRN 08/31/19 07/12/20 History levothyroxine 75 mcg tablet 75 mcg PO DAILY #90 tab 10/30/19 07/12/20 Rx omeprazole 40 mg capsule,delayed 40 mg PO DAILY #90 cap 03/08/20 07/12/20 Rx release diclofenac sodium 1 % topical gel 4 g TOPICAL QID PRN 30 Days #100 g 03/14/20 07/12/20 Rx albuterol sulfate 90 mcg/actuation 2 inh INHALATION TID PRN #18 g 05/03/20 07/12/20 Rx aerosol inhaler oxycodone-acetaminophen 5 mg-325 1 tab PO Q8H PRN 7 Days #21 tab 07/07/20 07/12/20 Rx mg tablet Fluconazole [Diflucan 100mg tablet] 100 mg PO DAILY 07/12/20 07/12/20 History Gabapentin 600 mg PO TID 07/12/20 07/12/20 History Linezolid 600 mg PO Q12H 07/12/20 07/12/20 History levoFLOXacin [Levofloxacin 750MG 750 mg PO DAILY 07/12/20 07/12/20 History Tablet*] Height: 1.63 m Weight: 94.4 kg Laboratory Results:: Laboratory Results - last 24 hr 07/12/20 17:32: SARS-CoV-2 IgG Ab (Rapid) Negative, SARS-CoV-2 IgM Ab (Rapid) Negative 07/12/20 17:35: WBC 21.5 H*, RBC 3.69 L, Hgb 11.7 L, Hct 38.4, MCV 104.1 H, MCH 31.6 H, MCHC 30.4 L, RDW 15.3, Plt Count 359, MPV 8.2, Neut % (Auto) 89.6 H, Lymph % (Auto) 4.0 L, [place] % (Auto) 4.0, Eos % (Auto) 2.3, Baso % (Auto) 0.1, Neut # (Auto) 19.2 H, Lymph # (Auto) 0.9, [place] # (Auto) 0.9, Eos # (Auto) 0.5 H, Baso # (Auto) 0.0, Total Counted 100, Neutrophils % (Manual) 91 H, Lymphocytes % (Manual) 5 L, Monocytes % (Manual) 2, Eosinophils % (Manual) 1, Basophils % (Manual) 1.0, Platelet Estimate Normal, Anisocytosis 1+, Macrocytosis 1+ 07/12/20 17:35: Sodium 137, Potassium 3.8, Chloride 107, Carbon Dioxide 21 L, Anion Gap 12.8, BUN 16, Creatinine 1.30 H, Estimated Creat Clear 68, Estimated GFR 42 L, Est GFR ( Amer) 51 L, Glucose 117 H, Calcium 9.6, Troponin I 0.10 H 07/12/20 17:35: D-Dimer 1.16 07/12/20 17:35: Total Bilirubin 0.4, Direct Bilirubin 0.2, Conjugated Bilirubin 0.0, Indirect Bilirubin 0.2, Unconjugated Bilirubin 0.2, AST 62 H, ALT 19, Alkaline Phosphatase 113, Total Protein 6.6, Albumin 3.2 L 07/12/20 19:50: Lactate 2.2 H 07/12/20 20:00: Urine Color Yellow, Urine Appearance Clear, Urine pH 6.0, Ur Specific [place] 1.025, Urine Protein 1+, Urine Glucose (UA) Negative, Urine Ketones Negative, Urine Blood Negative, Urine Nitrate Negative, Urine Bilirubin Negative, Urine Urobilinogen 0.2, Ur Leukocyte Esterase Negative, Urine RBC Occasional, Urine WBC 5-10, Ur Squamous Epith Cells 5-10, Urine Bacteria 1+ 07/12/20 20:40: Troponin I 0.15 H 07/12/20 22:45: Troponin I 0.16 H 07/12/20 23:26: Lactate 1.5 07/13/20 06:00: WBC 17.9 H, RBC 3.42 L, Hgb 10.8 L, Hct 35.8 L, MCV 104.9 H, MCH 31.7 H, MCHC 30.2 L, RDW 15.1, Plt Count 290, MPV 9.0, Neut % (Auto) 88.0 H, Lymph % (Auto) 7.2 L, [place] % (Auto) 3.3, Eos % (Auto) 1.3, Baso % (Auto) 0.2, Neut # (Auto) 15.7 H, Lymph # (Auto) 1.3, [place] # (Auto) 0.6, Eos # (Auto) 0.2, Baso # (Auto) 0.0 07/13/20 06:00: Sodium 136, Potassium 3.4 L, Chloride 109 H, Carbon Dioxide 23, Anion Gap 7.4, BUN 15, Creatinine 1.10 H, Estimated Creat Clear 82, Estimated GFR 51 L, Est GFR ( Amer) 62 D, Glucose 93 D, Calcium 9.2 Medical Il
--- NOTE | 2020-07-13 09:24 | PC.NURSE ---
received call from [facility] (Qian) that PICC RN is in ACLS training and is unable to insert PICC line @ this time. Procedure will be completed when she is finished with class.
[2020-07-13 09:25] LABS: Lymphocytes % 9 % (10-50); Monocytes % 5 % (2-9); Neutrophils % 84 % (42-76); Platelet Estimate Normal; RBC Morphology Normal; Total Cells Counted 100
[2020-07-13 09:50] LABS: C-Reactive Protein 297.5 mg/L (0-4)
--- NOTE | 2020-07-13 10:20 | PC.NURSE ---
received fax from Dr. Rodriguez's office. ID consult note placed in pt's chart.
--- NOTE | 2020-07-13 13:21 | HMH.PHAINT ---
HOME MEDICATION RECONCILIATION COMPLETED USING LIST FROM [facility] AND PT INTERVIEW. PER PT, SHE TAKES LASIX AND POTASSIUM NEEDED FPOR EDEMA.
--- NOTE | 2020-07-13 13:39 | PC.NURSE ---
Pt able to provide bathing while sitting on BSC. Dressing changed to RLE. Painted with betadine and covered with soft roll and ERROL bandage. Sutures are intact. Photo consent signed by pt. Picture taken for chart. Pt also signed Remdesivir consent from pharmacy.
--- NOTE | 2020-07-13 14:06 | PC.NURSE ---
RLE lateral incision from prior ORIF completed by Dr. Finn. Wound is 10cm long. Sutures are intact.
--- NOTE | 2020-07-13 14:16 | PC.NURSE ---
PT room was cleaned, and moped as well as bed side camode was sanitized. MYRON 07/13
--- NOTE | 2020-07-13 14:29 | PC.NURSE ---
PICC line nurses @ [facility] ([place])
--- NOTE | 2020-07-13 16:31 | XR_ITS ---
PROCEDURE: XR CHEST PORTABLE PICC PLAC CLINICAL HISTORY: picc line placement COMPARISON: CR XR CHEST 2V from 04/18/[address] CHEST WO CON from 07/12/2020 CR XR CHEST 2V from 07/12/2020 CR XR CHEST PORTABLE PICC PLAC from 07/13/2020 FINDINGS: The right-sided PICC line has been repositioned. 2 different sets of images are obtained in order to try to see the PICC line which is obscured by the mediastinum. On the 2nd set of images at 1657 hours, the PICC line is in good position with the tip in the region the SVC. There is cardiomegaly with haziness of the right lung compared to the left not significantly changed IMPRESSION: Good position of right-sided PICC line Dictated by: Paresh Li MD 07/13/2020 17:03 Paresh iL MD in [facility] 07/13/2020 17:03
--- NOTE | 2020-07-13 17:03 | PC.NURSE ---
[employer] (Tova Cheek) received call from Dr. Li while in the unit. He reports that PICC line is ok to be used.
[2020-07-14] VITALS (15 sets, daily range): BP systolic 131–154; BP diastolic 58–90; PULSE 57–73; RESP 17–19; TEMP 36.8–37.2; O2SAT 90–98; BMI 35.8
--- NOTE | 2020-07-14 00:36 | PC.NURSE ---
She is A&Ox4. Denies SOA at rest. Reports SOA with exertion. O2 desaturated to 60s upon transfer to [facility] but pt was talking as well. She rebounds fairly quickly. Continues on 4LPM n/c. Lung sounds with scattered posterior wheezes. She reports an intermittent cough with yellowish, green sputum. Received PRN medication for abdominal pain and nausea. She reports abdominal pain in BLQ and right shoulder pain. She requested hoa crackers, peanut butter, and pepsi for a snack. Stated she would like a big mac. Was educated on low sodium diet. Reports her last BM was on 07/12. DSG on RLE is C/D/I; was changed on dayshi. NSR on telemetry. Continues on contact and airborne precautions. Right limb alert r/t PICC line. She called out that this time requesting an emesis bag. No vomiting at this time but did get up to void at the [facility]. Urine is yellow, clear. She requested ice chips. Monitoring O2 closely at this time as it is maintaining in low 90s (90-91%).
[2020-07-14 06:23] LABS: Basophils % 0.1 % (0.1-2.0); Eosinophils # 0.1 K/mm3 (0.0-0.4); Eosinophils % 0.6 % (0.1-12.0); Hematocrit 33.5 % (37.0-47.0); Hemoglobin 10.3 g/dL (12.2-16.2); Lymphocytes % 5.7 % (10-50); Mean Corpuscular HGB Conc 30.9 g/dL (31.8-35.4); Mean Corpuscular Hemoglobin 31.9 pg (27.0-31.2); Mean Corpuscular Volume 103.2 fl (81-99); Mean Platelet Volume 9.6 fl (7.4-10.4); Monocytes # 0.6 K/mm3 (0.1-1.0); Monocytes % 3.2 % (1.7-9.3); Neutrophils # 15.5 K/mm3 (1.8-7.8); Neutrophils % 90.5 % (37.0-80.0); Platelet Count 257 K/mm3 (142-424); Red Blood Count 3.24 M/mm3 (4.20-5.40); Red Cell Distribution Width 14.9 % (11.5-17.5); White Blood Count 17.1 K/mm3 (4.8-10.8)
[2020-07-14 06:34] LABS: Chloride 108 mmol/L (98-107); MANUAL DIFFERENTIAL MANUAL DIFFERENTIAL (MANUAL DIFF); Potassium 3.4 mmoL/L (3.5-5.1); Sodium 139 mmol/L (136-145)
[2020-07-14 06:37] LABS: Alanine Aminotransferase 11 U/L (12-78); Albumin Level 2.9 g/dl (3.5-5.0); Albumin/Globulin Ratio 0.9 (1.1-1.8); Alkaline Phosphatase 91 U/L (38-126); Anion Gap 7.4 mEq/L (5-15); Aspartate Amino Transferase 32 U/L (14-36); Bilirubin,Total 0.3 mg/dl (0.2-1.3); Blood Urea Nitrogen 14 mg/dl (7-17); Carbon Dioxide 27 mmol/L (22.0-30.0); Creatinine Clearance Estimated 83 mL/min (50-200); Estimated Glomerular Filt Rate 51 ml/min (>60); GFR (African American) 62 ML/MIN (>60); Globulin 3.2 g/dL (1.3-3.2); Total Protein,Serum 6.1 g/dl (6.3-8.2)
[2020-07-14 06:38] LABS: Calcium 9.5 mg/dl (8.4-10.2); Glucose 119 mg/dl (74-100)
--- NOTE | 2020-07-14 07:06 | HMH.ACPN2 ---
Internal Medicine - PN: Subj *Date: 07/14/20 *Time: 07:06 Interval history: Patient reports continued abdominal pain that is crampy as well as nausea that will radiate up into the chest. She reports persistence of dyspnea. Nursing staff reports at rest and when quiet patient's O2 sats are in the high 90s. With ambulating or talking sats will drop to less than 90. Exam Vital signs and Labs for Last 24 Hours: Temp Pulse Resp BP Pulse Ox 98.8 F 65 18 140/78 96 07/14/20 00:47 07/14/20 04:00 07/13/20 20:00 07/14/20 04:00 07/14/20 04:00 Laboratory Results - last 24 hr 07/13/20 06:00: Total Counted 100, Neutrophils % (Manual) 84 H, Band Neutrophils % 2.0, Lymphocytes % (Manual) 9 L, Monocytes % (Manual) 5, Platelet Estimate Normal, RBC Morphology Normal 07/13/20 06:00: Sodium 136, Potassium 3.4 L, Chloride 109 H, Carbon Dioxide 23, Anion Gap 7.4, BUN 15, Creatinine 1.10 H, Estimated Creat Clear 82, Estimated GFR 51 L, Est GFR ( Amer) 62 D, Glucose 93 D, Calcium 9.2 07/13/20 06:00: C-Reactive Protein 297.5 H 07/14/20 04:50: WBC 17.1 H, RBC 3.24 L, Hgb 10.3 L, Hct 33.5 L, MCV 103.2 H, MCH 31.9 H, MCHC 30.9 L, RDW 14.9, Plt Count 257, MPV 9.6, Neut % (Auto) 90.5 H, Lymph % (Auto) 5.7 L, [place] % (Auto) 3.2, Eos % (Auto) 0.6, Baso % (Auto) 0.1, Neut # (Auto) 15.5 H, Lymph # (Auto) 1.0, [place] # (Auto) 0.6, Eos # (Auto) 0.1, Baso # (Auto) 0.0 07/14/20 04:50: Sodium 139, Potassium 3.4 L, Chloride 108 H, Carbon Dioxide 27, Anion Gap 7.4, BUN 14, Creatinine 1.10 H, Estimated Creat Clear 83, Estimated GFR 51 L, Est GFR ( Amer) 62, Glucose 119 H D, Calcium 9.5, Total Bilirubin 0.3, AST 32 D, ALT 11 L D, Alkaline Phosphatase 91, Total Protein 6.1 L, Albumin 2.9 L, Globulin 3.2, Albumin/Globulin Ratio 0.9 L I & O for Last 24 hours: Intake & Output 07/11/20 07/12/20 07/13/20 07/14/20 11:59 11:59 11:59 11:59 Intake Total 180 / 180 2258 / 2258 Output Total 200 / 200 2550 / 2550 Balance - -292 / -292 Weight 208 lb 1.862 oz 209 lb 10.554 oz Microbiology Reports for the Last 24 Hours: Microbiology 07/13/20 11:30 Sputum - Expectorated Sputum Gram Stain - Final Narrative: Patient looks comfortable and in no distress. Lungs have rhonchi in the right anterior chest and right posterior mid chest. Left lung is clear this morning although distant. Heart has a regular rate and rhythm. Abdomen is soft with mild epigastric tenderness. Assessment and Plan (1) Pneumonia due to COVID-19 virus Status: Acute Category: Medical Code(s): U07.1 - COVID-19; J12.89 - Other viral pneumonia (2) Infection of wound due to methicillin resistant Staphylococcus aureus (MRSA) Status: Acute Category: Medical Code(s): A49.02 - Methicillin resistant Staphylococcus aureus infection, unspecified site (3) Hypothyroidism (acquired) Status: Acute Category: Medical Code(s): E03.9 - Hypothyroidism, unspecified (4) Mediastinal adenopathy Status: Acute Category: Medical Code(s): R59.0 - Localized enlarged lymph nodes (5) Obesity (BMI 35.0-39.9 without comorbidity) Status: Acute Category: Medical Code(s): E66.9 - Obesity, unspecified (6) Pulmonary hypertension Status: Acute Category: Medical Code(s): I27.20 - Pulmonary hypertension, unspecified (7) Diastolic dysfunction Status: Chronic Category: Medical Code(s): I51.9 - Heart disease, unspecified (8) Tobacco use disorder Status: Chronic Category: Medical Code(s): F17.200 - Nicotine dependence, unspecified, uncomplicated - Assessment and plan all Dx Assessment and Plan for all problems:: 1. Continue Remdesivir and dexamethasone for COVID 19 pneumonia 2. Continue Levaquin and vancomycin for her postoperative wound infection after ORIF of trimalleolar fracture of the right ankle. Patient is 11 weeks postop. 3. Give GI cocktail. Start probiotic. Discontinue Zofran due to ineffectiveness and start Phenergan
[2020-07-14 08:51] LABS: Anisocytosis 1+; Lymphocytes % 7 % (10-50); Macrocytosis 1+; Monocytes % 3 % (2-9); Neutrophils % 90 % (42-76); Platelet Estimate Normal; Total Cells Counted 100
--- NOTE | 2020-07-14 09:42 | HMH.PULMCON ---
*Admission Date: 07/13/20 *Reason for consult:: Acute hypoxic respiratory failure, COVID-19 pneumonia *History of present illness: Ms. Rai is a 59-year-old female with history of COPD, pulmonary hypertension, diastolic heart failure, recurrent pneumonias, ankle fracture with subsequent MRSA wound infection presented to the hospital with 5-day history of worsening cough, chest pain with yellowish productive phlegm along with fevers and chills and abdominal pain. On presentation to ED patient was found to be hypoxic needing supplemental oxygen therapy, her COVID-19 nasal MRSA PCR resulted positive. And she was admitted to the ICU and pulmonary was consulted for further management. [facility] History Medical History: Reports:: Anxiety, Atherosclerotic Heart Disease, Congestive Heart Failure, Chronic Obstructive Pulmonary Disease (COPD), Coronary Artery Disease, Depression, Gall Bladder Disease, Gastroesophageal Reflux Disease(GERD), Hypertension, Lung Disease, Migraine, MRSA Denies:: Cancer, Diabetes Mellitus Type 1, Diabetes Mellitus Type 2, Internal Pacemaker, Seizures *Have you ever received a pneumonia vaccine?: Yes *Have you received a flu vaccine this season?: Yes Other Medical History: Reports: Anemia, Arthritis, Fibromyalgia, Hypothyroidism, Liver Disease, Sinus Problems, Thyroid Disease, Other. Denies: Blood Transfusion Reaction Laterality Cases: Right: Other, Bilateral: Tonsillectomy Other Surgeries: Yes: No Previous Surgery, Angioplasty, Cardiac Catheterization, Cholecystectomy, Colonoscopy, Dilation and Curettage, Hysterectomy-Total, Other. No: Pacemaker Amputation: No Fractures: No - *Social History Smoking Status: Current every day smoker Tobacco Type: cigarettes # Packs/Day (cigarettes): 1 #Yrs smoked (if former smoker): 1 Alcohol Intake: never Alcohol Intake Frequency:: holidays/special occasions only Substance Use Type: denies use *Occupational Status:: unemployed Housing: house Household Members: family *Travel in the last 8 weeks: None - Psychiatric History Pschychiatric History:: Reports:: Anxiety, Depression Family Hx:: Anemia, Cancer, Stroke, Alcoholism [facility] Pulmonology ROS - Constitutional Reports fatigue, Reports fever(s), Reports lack of energy - *Cardiovascular Reports chest pain, Reports shortness of breath with activity, Reports leg swelling - *Respiratory Respiratory: Yes shortness of breath, Yes change in phlegm color, Yes chest congestion, Yes cough, Yes excessive phlegm production, No coughing up blood, No pain on inspiration, Yes pain with cough, Yes cough with sputum production, No pain with breathing - *Gastrointestinal Gastrointestingal: Reports: abdominal pain - *Musculoskeletal Musculoskeletal: Reports system reviewed and no additional complaints, except as docu - *Neurologic Reports abnormal walking, Reports headache(s), Reports weakness, Denies abnormal hearing Meds Home Medications Medication Instructions Recorded Confirmed Type Tizanidine HCl [Zanaflex 4mg 4 mg PO BID PRN 07/30/19 07/12/20 History tab] Potassium Chloride [Micro-K 10mEq 20 meq PO BID #60 capsule.er 07/31/19 07/12/20 Rx cap] Furosemide [Furosemide 40MG tAB*] 40 mg PO NEEDED PRN 08/31/19 07/12/20 History levothyroxine 75 mcg tablet 75 mcg PO DAILY #90 tab 10/30/19 07/12/20 Rx diclofenac sodium 1 % topical gel 4 g TOPICAL QID PRN 30 Days #100 g 03/14/20 07/12/20 Rx albuterol sulfate 90 mcg/actuation 2 inh INHALATION TID PRN #18 g 05/03/20 07/12/20 Rx aerosol inhaler oxycodone-acetaminophen 5 mg-325 1 tab PO Q8H PRN 7 Days #21 tab 07/07/20 07/13/20 Rx mg tablet Fluconazole [Diflucan 100mg tablet] 100 mg PO DAILY 07/12/20 07/12/20 History Gabapentin 600 mg PO TID 07/12/20 07/12/20 History Linezolid 600 mg PO Q12H 07/12/20 07/12/20 History levoFLOXacin [Levofloxacin 750MG 750 mg PO DAILY 07/12/20 07/12/20 History Tablet*] Omeprazole 40 mg PO DAILY 07/13/20 07/12/20 History Trazodone HCl 100 mg PO
--- NOTE | 2020-07-14 13:23 | PC.NURSE ---
Addendum entered by Cheyanne Martin RN 07/14/20 18:27: PICC dressing changed per protocol using aseptic technique. Pt is unable to keep food down, she vomits with any PO intake except some liquids. Broth/soup offered but pt declined. She has been afebrile this shift. Will continue to monitor. Original Note: Pt is alert and oriented x4. Her lungs are diminished with some rhonchi in the left middle lobe. O2 sats have remained in upper 90's on 4L NC. She does desat with exertion but rebounds fairly quick with rest. Dressing to RLE was changed. Stitches in tact, painted w/betadine and covered with soft roll and chip bandage. Pt tolerated well. She has had nausea off and on throughout the day that is temporarily relieved with phenergan. Pt states it just doesn't last long enough. Prn morphine given around the clock for abd/chest pain. She reports chest pain with cough, she states morphine does help. She has been up to the BSC for urination, no BM this shift. Right limb alert for PICC with bracelet in place. It has good blood return and flushes easily. NSR to sinus matt (in 50's) on telemetry. Appetite poor, she refused both breakfast and lunch. Alternatives were offered such a soup/sandwich/crackers but she declined. Will continue to monitor.
--- NOTE | 2020-07-14 14:55 | SW/DCPLANNER ---
Addendum entered by Yareli Andersen 07/20/20 14:58: CALLED THIS PATIENT AND EXPLAINED TO HER THAT IN ORDER FOR HER TO GO TO [facility] SHE HAD TO PRESENT HER INCOME AND SHOW ANY ASSETS SHE HAS... I ALSO TOLD HER IF SHE DOESN'T PROVIDE WHAT THEY NEED AND NOT ACCEPTED DR BURGER SAID SHE WOULD DISCHARGE AND WOULD NO LONGER BE CONTAGIOUS WITH COVID... I EXPLAINED THIS TO HER AND SHE SAID HER FAMILY DOES NOT WANT HER TO COME HOME NOW... I EXPLAINED TO HER THAT SHE NEEDS TO COME UP WITH A PLAN... Addendum entered by Yareli Andersen 07/20/20 14:47: PATIENT IS GOING TO HAVE TO PROVIDE THE FACILITY IN [facility] WITH SOME FINANCIAL DOCUMENTATION BEFORE ACCEPTED... Addendum entered by Yareli Andersen 07/19/20 06:54: HAVE NOT HEARD BACK FROM [facility] IN [facility] TO WHETHER THEY CAN ACCEPT THIS PATIENT OR NOT.. PATIENT HAS A MEDICAID PLAN AND I HAVE SENT HER INFORMATION, WAITING TO HEAR BACK THIS MORNING...PATIENT STATES SHE CAN NOT GO HOME AROUND HER ELDERLY FATHER AND IS NOT SURE WHERE SHE CAN GO IF THEY DISCHARGE HER... PATIENT WAS SET UP THROUGH [employer] FOR IV ANTIBIOTICS PRIOR TO COMING TO THE HOSPITAL WITH A DIAGNOSIS OF COVID... WILL FOLLOW UP THIS MORNING... Addendum entered by Yareli Andersen 07/18/20 09:43: SPOKE WITH PATIENT VIA TELPHONE TODAY REGARDING DISCHARGE PLANS: PATIENT WAS ADMITTED WITH A POSITIVE COVID, SHE LIVES WITH HER DEMENTED FATHER AND BROTHER WHOM CARES FOR THE BOTH OF THEM... FATHER AND BROTHER ARE NEGATIVE FOR COVID BUT SHE HAS BEEN ILL AND NEEDS TO HAVE SOME REHAB AND GO SOMEWHERE TO REHAB BEFORE SHE CAN RETURN HOME... SHE DID AGREE TO GO IF THE FACILITY IN [facility] CAN TAKE HER... THEY TAKE COVID PATIENTS AND COULD BE INTERESTED IN HER...WAITING ON A PT/OT EVAL AND ONCE IT IS IN THE SYSTEM I WILL SEND IT...IF ACCEPTED IT IS REASONABLE FOR HER TO GO [facility] PENDING NO SETBACKS... Addendum entered by Brittani Beasley 07/15/20 13:25: Jonelle Levi [facility] has called and stated if patient discharges over the weekend to please have nurse contact field control inspector [facility] nurse at [phone]. I will also leave this information with patients nurse (Malathi Oneal). Original Note: ACCORDING TO GUME WITH BIOSCRIPT, THIS PATIENT WAS SET UP WITH IV ANTIBIOTICS AT HOME BUT ENDED UP IN THE HOSPITAL... HER ANTIBIOTICS ARE COVERED UNDER HER BENEFIT AND THE ONLY THING [facility]IO [employer] WILL NEED IS A NEW ORDER AT TIME OF DISPOSITION... PATIENT CURRENTLY NOT READY FOR DISCHARGE...
--- NOTE | 2020-07-14 21:23 | PC.NURSE ---
Pt unable to take 2100 meds. As soon as pt attempted to take PO meds, pt had an episode of N/V. Pt stated she did not want to try PO meds again tonight. Pt refused PRN phenergan at this time, pt stated maybe later . Pt currently sleeping in bed and has had no other episode of N/V. Will continue to monitor.
[2020-07-15] VITALS (9 sets, daily range): BP systolic 112–170; BP diastolic 54–81; PULSE 57–74; RESP 13–20; TEMP 36.6–37.1; O2SAT 89–98; BMI 35.4
--- NOTE | 2020-07-15 03:38 | PC.NURSE ---
Addendum entered by Jessenia Acevedo RN 07/15/20 05:37: Pt brought down to 3L NC and is at 91%. At best pt reaches 1250 on IS. Pt had a bed bath, linen change this shift. Room was wiped down with oxivir wipes. Pt has had x1 small, brown loose stool this shift. Original Note: Pt has rested intermittently this shift. Pt has had episodes of N/V x3 this shift. Emesis is yellow, bile-colored. Output charted in I&O. PRN phenergan administered x1 this shift along with PRN pain meds x1 for abdominal pain. Hypoactive bowel sounds heard in all 4 quads. Pt has had a dry, non productive cough this shift. Expiratory rhonchi heard in pt's rt middle lobe upon auscultation. Pt has used IS x2 this shift during awake hours. Pt has tolerated 4 L in low to mid 90's this shift. Pt has remained afebrile this shift. NSR on tele. Pt has ambulated independently to BSC and has urinated clear, yellow urine. PICC in right upper arm remains intact and patent. Dressing on RLE remains CDI. Call light within reach. No other complaints or acute changes at this time. Will continue to monitor.
--- NOTE | 2020-07-15 06:03 | PC.NURSE ---
Pt brought back up to 4L NC. Pt SATS were maintaining 86-88% on 3L. Pt is currently at 92%.
[2020-07-15 06:29] LABS: Basophils % 0.1 % (0.1-2.0); Eosinophils # 0.1 K/mm3 (0.0-0.4); Eosinophils % 0.3 % (0.1-12.0); Hematocrit 37.1 % (37.0-47.0); Hemoglobin 11.4 g/dL (12.2-16.2); Lymphocytes # 1.1 K/mm3 (0.7-4.5); Lymphocytes % 7.9 % (10-50); Mean Corpuscular HGB Conc 30.7 g/dL (31.8-35.4); Mean Corpuscular Hemoglobin 30.8 pg (27.0-31.2); Mean Corpuscular Volume 100.5 fl (81-99); Mean Platelet Volume 9.4 fl (7.4-10.4); Monocytes # 0.6 K/mm3 (0.1-1.0); Monocytes % 3.9 % (1.7-9.3); Neutrophils # 12.3 K/mm3 (1.8-7.8); Neutrophils % 87.8 % (37.0-80.0); Platelet Count 326 K/mm3 (142-424); Red Blood Count 3.69 M/mm3 (4.20-5.40); Red Cell Distribution Width 15.5 % (11.5-17.5); White Blood Count 14.1 K/mm3 (4.8-10.8)
[2020-07-15 06:42] LABS: Chloride 101 mmol/L (98-107); Potassium 3.3 mmoL/L (3.5-5.1); Sodium 139 mmol/L (136-145)
[2020-07-15 06:45] LABS: Alanine Aminotransferase 15 U/L (12-78); Albumin Level 3.1 g/dl (3.5-5.0); Albumin/Globulin Ratio 0.9 (1.1-1.8); Alkaline Phosphatase 87 U/L (38-126); Anion Gap 12.3 mEq/L (5-15); Aspartate Amino Transferase 26 U/L (14-36); Bilirubin,Total 0.3 mg/dl (0.2-1.3); Blood Urea Nitrogen 15 mg/dl (7-17); Calcium 9.6 mg/dl (8.4-10.2); Carbon Dioxide 29 mmol/L (22.0-30.0); Creatinine Clearance Estimated 90 mL/min (50-200); Estimated Glomerular Filt Rate 57 ml/min (>60); GFR (African American) 69 ML/MIN (>60); Globulin 3.3 g/dL (1.3-3.2); Glucose 135 mg/dl (74-100); Total Protein,Serum 6.4 g/dl (6.3-8.2)
--- NOTE | 2020-07-15 06:50 | HMH.ACPN2 ---
Internal Medicine - PN: Subj *Date: 07/15/20 *Time: 06:55 Interval history: Patient reports episodes of small loose stools as well as a few episodes of vomiting. Nursing staff reports patient also had frequent small loose stools. Diarrhea panel will be requested. Patient continues to have some abdominal discomfort as well. She has shortness of breath for which she is using her inhalers. Nursing staff reports O2 sats between the mid 90s and high 80s depending on patient positioning as well as liters per minute flow of oxygen. Patient is currently on 4 L/min Exam Vital signs and Labs for Last 24 Hours: Temp Pulse Resp BP Pulse Ox 98.3 F 57 L 20 135/71 98 07/15/20 04:00 07/15/20 04:00 07/15/20 04:00 07/15/20 04:00 07/15/20 04:00 Laboratory Results - last 24 hr 07/14/20 04:50: Total Counted 100, Neutrophils % (Manual) 90 H, Lymphocytes % (Manual) 7 L, Monocytes % (Manual) 3, Platelet Estimate Normal, Anisocytosis 1+, Macrocytosis 1+ 07/14/20 04:50: Sodium 139, Potassium 3.4 L, Chloride 108 H, Carbon Dioxide 27, Anion Gap 7.4, BUN 14, Creatinine 1.10 H, Estimated Creat Clear 83, Estimated GFR 51 L, Est GFR ( Amer) 62, Glucose 119 H D, Calcium 9.5, Total Bilirubin 0.3, AST 32 D, ALT 11 L D, Alkaline Phosphatase 91, Total Protein 6.1 L, Albumin 2.9 L, Globulin 3.2, Albumin/Globulin Ratio 0.9 L I & O for Last 24 hours: Intake & Output 07/12/20 07/13/20 07/14/20 07/15/20 11:59 11:59 11:59 11:59 Intake Total 180 / 180 2618 / 2618 890 / 890 Output Total 200 / 200 2550 / 2550 2900 / 2900 Balance - 68 / 68 -2009 Weight 208 lb 1.862 oz 209 lb 10.554 oz 207 lb 3.752 oz Microbiology Reports for the Last 24 Hours: Microbiology 07/12/20 20:40 Blood Blood Culture - Preliminary NO GROWTH AFTER 48 HOURS 07/12/20 20:40 Blood Blood Culture - Preliminary NO GROWTH AFTER 48 HOURS Narrative: Patient does not look to be in any distress. Lung exam reveals some faint expiratory wheezes heard posteriorly. No rales. Heart has a regular rate and rhythm. Abdomen is soft with mild epigastric tenderness and bowel sounds are present. The right lower extremity is bandaged. No edema in the left extremity. Blood cultures have shown no growth at 48 hours Sputum cultures are showing rare gram-positive cocci CBC and CMP are pending this morning Assessment and Plan (1) Pneumonia due to COVID-19 virus Status: Acute Category: Medical Code(s): U07.1 - COVID-19; J12.89 - Other viral pneumonia (2) Infection of wound due to methicillin resistant Staphylococcus aureus (MRSA) Status: Acute Category: Medical Code(s): A49.02 - Methicillin resistant Staphylococcus aureus infection, unspecified site (3) Hypothyroidism (acquired) Status: Acute Category: Medical Code(s): E03.9 - Hypothyroidism, unspecified (4) Mediastinal adenopathy Status: Acute Category: Medical Code(s): R59.0 - Localized enlarged lymph nodes (5) Obesity (BMI 35.0-39.9 without comorbidity) Status: Acute Category: Medical Code(s): E66.9 - Obesity, unspecified (6) Pulmonary hypertension Status: Acute Category: Medical Code(s): I27.20 - Pulmonary hypertension, unspecified (7) Diastolic dysfunction Status: Chronic Category: Medical Code(s): I51.9 - Heart disease, unspecified (8) Tobacco use disorder Status: Chronic Category: Medical Code(s): F17.200 - Nicotine dependence, unspecified, uncomplicated - Assessment and plan all Dx Assessment and Plan for all problems:: No changes will be made to the patient's plan of care. Continue supplemental oxygen to keep O2 sats 94% or greater. Continue Remdesivir and dexamethasone. Continue Levaquin and vancomycin for patient's postoperative wound infection. Levaquin will also cover community-acquired pneumonia. Probiotic has been added to patient's regimen for her abdominal pain a
[2020-07-15 06:57] LABS: MANUAL DIFFERENTIAL MANUAL DIFFERENTIAL (MANUAL DIFF)
--- NOTE | 2020-07-15 07:08 | XR_ITS ---
PROCEDURE: XR CHEST PORTABLE CLINICAL HISTORY: pneumonia progress COMPARISON: CT CT CHEST WO CON from 07/12/2020 CR XR CHEST 2V from 07/12/2020 CR XR CHEST PORTABLE PICC PLAC from 07/13/2020 CR XR CHEST PORTABLE PICC PLAC from 07/13/2020 FINDINGS: Cardiomegaly without failure. Right upper extremity PICC line tip is in the region of the SVC. Previously noted ground-glass opacification of the lungs has shown improvement. IMPRESSION: Improvement in and diffuse ground-glass opacification of the lungs. Dictated by: Paresh Li MD 07/15/2020 10:35 Paresh Li MD in [place] 07/15/2020 10:35
[2020-07-15 07:35] LABS: Adenovirus F 40/41, stool Not Detected (NotDetected); Astrovirus Not Detected (NotDetected); Campylobacter Not Detected (NotDetected); Clostridium Difficile A/B, PCR Not Detected (NotDetected); Cryptosporidium Not Detected (NotDetected); Cyclospora Cayetanesis Not Detected (NotDetected); Entamoeba histolytica Not Detected (NotDetected); Enteroaggregative E coli Not Detected (NotDetected); Enteropathogenic E coli Not Detected (NotDetected); Enterotoxigenic E coli Not Detected (NotDetected); Giardia lamblia Not Detected (NotDetected); Norovirus Not Detected (NotDetected); Plesimonas Shigalloides, PCR Not Detected (NotDetected); Rotavirus A Not Detected (NotDetected); Salmonella, PCR Not Detected (NotDetected); Sapovirus Not Detected (NotDetected); Shiga-like toxin E coli Not Detected (NotDetected); Shigella Enterovasive E coli Not Detected (NotDetected); Vibrio Cholerae Not Detected (NotDetected); Vibrio, PCR Not Detected (NotDetected); Yersinia Entercolitica, PCR Not Detected (NotDetected)
[2020-07-15 08:42] LABS: Lymphocytes % 8 % (10-50); Monocytes % 5 % (2-9); Neutrophils % 87 % (42-76); Platelet Estimate Normal; RBC Morphology Normal; Total Cells Counted 100
--- NOTE | 2020-07-15 11:29 | DIET.NUTRFU ---
Pt with poor PO intakes- 25% dt ageusia and nausea, occasional emesis. Diet liberalized to Regular (with out added salt on trays) to encourage increase in intakes and Ensure TID added at this time to supplement. Will continually reassess indication diet liberalization and supplementation based on fluid status/intakes. Pt also with abdominal discomfort and diarrhea. Of note pt does have IBS. Probiotic added may benefit. Continuing to monitor.
--- NOTE | 2020-07-15 11:57 | HMH.PULMPN ---
Internal Medicine - PN: Subj *Date: 07/15/20 *Time: 11:57 Interval history: Patient has an episode of nausea and vomiting during which her oxygen requirements were increased to 4 L. Today also complains of abdominal discomfort and worsening diarrhea Exam Vital signs and Labs for Last 24 Hours: Temp Pulse Resp BP Pulse Ox 98.8 F 60 18 128/70 97 07/15/20 08:00 07/15/20 08:00 07/15/20 10:50 07/15/20 08:00 07/15/20 08:00 Laboratory Results - last 24 hr 07/15/20 05:00: WBC 14.1 H, RBC 3.69 L, Hgb 11.4 L, Hct 37.1, MCV 100.5 H, MCH 30.8, MCHC 30.7 L, RDW 15.5, Plt Count 326 D, MPV 9.4, Neut % (Auto) 87.8 H, Lymph % (Auto) 7.9 L, [place] % (Auto) 3.9, Eos % (Auto) 0.3, Baso % (Auto) 0.1, Neut # (Auto) 12.3 H, Lymph # (Auto) 1.1, [place] # (Auto) 0.6, Eos # (Auto) 0.1, Baso # (Auto) 0.0, Total Counted 100, Neutrophils % (Manual) 87 H, Lymphocytes % (Manual) 8 L, Monocytes % (Manual) 5, Platelet Estimate Normal, RBC Morphology Normal 07/15/20 05:00: Sodium 139, Potassium 3.3 L, Chloride 101, Carbon Dioxide 29, Anion Gap 12.3, BUN 15, Creatinine 1.00, Estimated Creat Clear 90, Estimated GFR 57 L, Est GFR ( Amer) 69, Glucose 135 H, Calcium 9.6, Total Bilirubin 0.3, AST 26, ALT 15 D, Alkaline Phosphatase 87, Total Protein 6.4, Albumin 3.1 L, Globulin 3.3 H, Albumin/Globulin Ratio 0.9 L I & O for Last 24 hours: Intake & Output 07/12/20 07/13/20 07/14/20 07/15/20 23:59 23:59 23:59 23:59 Intake Total 1861 / 1861 1677 / 1677 150 / 150 Output Total 2250 / 2650 2400 / 2550 1000 / 1000 Balance -389 / -789 -723 / -873 -850 / -850 Weight 205 lb 207 lb 3.752 oz 209 lb 10.554 oz 207 lb 3.752 oz Microbiology Reports for the Last 24 Hours: Microbiology 07/13/20 11:30 Sputum - Expectorated Sputum Gram Stain - Final 07/13/20 11:30 Sputum - Expectorated Sputum Sputum Culture - Preliminary 07/12/20 20:40 Blood Blood Culture - Preliminary NO GROWTH AFTER 48 HOURS 07/12/20 20:40 Blood Blood Culture - Preliminary NO GROWTH AFTER 48 HOURS Radiology Reports for the Last 24 Hours: CXR from this morning showed improvement in her pulmonary infiltrates. - *Routine HEENT Exam Head: Present: normocephalic, atraumatic - *Routine Neck Exam Present: supple. Absent: lymphadenopathy, thyromegaly - *Routine Respiratory Exam Present: respiratory distress. Absent: accessory muscle use, patient mechanically ventilated Comments: Bilateral coarse breath sound - *Routine Cardiovascular Exam Present: RRR, Normal S1, Normal S2 - *Routine Abdominal Exam Present: soft. Absent: normoactive bowel sounds, tenderness, distended Comments: Increased bowel sounds - *Routine Extremities Exam Present: edema. Absent: cyanosis, clubbing Assessment and Plan (1) Pneumonia due to COVID-19 virus Status: Acute Category: Medical Code(s): U07.1 - COVID-19; J12.89 - Other viral pneumonia (2) Infection of wound due to methicillin resistant Staphylococcus aureus (MRSA) Status: Acute Category: Medical Code(s): A49.02 - Methicillin resistant Staphylococcus aureus infection, unspecified site (3) Hypothyroidism (acquired) Status: Acute Category: Medical Code(s): E03.9 - Hypothyroidism, unspecified (4) Mediastinal adenopathy Status: Acute Category: Medical Code(s): R59.0 - Localized enlarged lymph nodes (5) Obesity (BMI 35.0-39.9 without comorbidity) Status: Acute Category: Medical Code(s): E66.9 - Obesity, unspecified (6) Pulmonary hypertension Status: Acute Category: Medical Code(s): I27.20 - Pulmonary hypertension, unspecified (7) Diastolic dysfunction Status: Chronic Category: Medical Code(s): I51.9 - Heart disease, unspecified (8) Tobacco use disorder Status: Chronic Category: Medical Code(s): F17.200 - Nicotine dependence, unspecified, uncomplicated - Assessment and plan all Dx Assessment and Plan for all
--- NOTE | 2020-07-15 16:24 | PC.NURSE ---
PT IS RESTING IN BED. PT HAS COMPLAINED OF ABDOMINAL PAIN AND HAS RECEIVED PAIN MEDICATION NEEDED. ATTEMPTED TO WEAN PT'S OXYGEN DOWN THIS SHIFT BUT PT HAS STRUGGLED T/O THE SHIFT TO MAINTAIN AN O2 SATURATION 88-92% ON 4 L NC. PT STATES SHE DOES NOT FEEL SOA AT ALL AND HAS NOT BEEN IN ANY DISTRESS . PT HAS BEEN USING INCENTIVE SPIROMETER T/O THE SHIFT. SUTURES TO SURGICAL INCISION WERE REMOVED THIS SHIFT AND BLE WAS REDRESSED PER ORDER OVER THE PHONE. LUNG SOUNDS HAVE SCATTERED WHEEZES. ABDOMEN IS SOFT/TENDERNESS NOTED IN THE EPIGASTRIC REGION. ACTIVE BOWEL SOUNDS. PT HAS NOT HAD ANY LOOSE STOOLS SINCE EARLY THIS MORNING. PT STATES SHE STILL DOES NOT HAVE AN APPETITE BUT HAS BEEN TOLERATING LIQUIDS. WILL CONTINUE TO MONITOR.
[2020-07-16] VITALS (7 sets, daily range): BP systolic 121–151; BP diastolic 64–94; PULSE 50–65; RESP 15–18; TEMP 36–36.9; O2SAT 89–95; BMI 35.4
--- NOTE | 2020-07-16 03:49 | PC.NURSE ---
shift summary patient has had issues with nausea and vomiting throughout shift requiring prn doses of phenergan ivpb. bowel sounds active x 4 quadrants. no loose stools noted. clear yellow urine. teletypesetter monitor has shown sb-sr 50s-60s, no ectopy noted. breath sounds have remained diminished with faint expiratory wheezes. respiratory pattern has been unlabored without accessory muscle use. respiratory rate between 12-18. sats have averaged 89-92% on 4 l nc. patient has had periods where sats would show as low as 75 and sustain for approximately 5 min then abruptly increase back to 90% without intervention. patient does have tendency to sleep with mouth open, requiring waking patient and reminding her to breath through her nose.
[2020-07-16 06:27] LABS: Basophils % 0.1 % (0.1-2.0); Eosinophils # 0.1 K/mm3 (0.0-0.4); Eosinophils % 0.4 % (0.1-12.0); Hemoglobin 10.5 g/dL (12.2-16.2); Lymphocytes # 1.4 K/mm3 (0.7-4.5); Lymphocytes % 11.2 % (10-50); Mean Corpuscular HGB Conc 30.9 g/dL (31.8-35.4); Mean Corpuscular Hemoglobin 31.4 pg (27.0-31.2); Mean Corpuscular Volume 101.5 fl (81-99); Mean Platelet Volume 9.1 fl (7.4-10.4); Monocytes # 1.1 K/mm3 (0.1-1.0); Monocytes % 8.4 % (1.7-9.3); Neutrophils % 79.9 % (37.0-80.0); Platelet Count 235 K/mm3 (142-424); Red Blood Count 3.35 M/mm3 (4.20-5.40); Red Cell Distribution Width 14.9 % (11.5-17.5); White Blood Count 12.5 K/mm3 (4.8-10.8)
[2020-07-16 06:31] LABS: Chloride 101 mmol/L (98-107); Potassium 3.7 mmoL/L (3.5-5.1); Sodium 136 mmol/L (136-145)
[2020-07-16 06:33] LABS: Alanine Aminotransferase 13 U/L (12-78); Aspartate Amino Transferase 25 U/L (14-36); Blood Urea Nitrogen 16 mg/dl (7-17); Creatinine Clearance Estimated 90 mL/min (50-200); Estimated Glomerular Filt Rate 57 ml/min (>60); GFR (African American) 69 ML/MIN (>60)
[2020-07-16 06:34] LABS: Albumin Level 2.9 g/dl (3.5-5.0); Alkaline Phosphatase 70 U/L (38-126); Anion Gap 7.7 mEq/L (5-15); Bilirubin,Total 0.3 mg/dl (0.2-1.3); Calcium 9.2 mg/dl (8.4-10.2); Carbon Dioxide 31 mmol/L (22.0-30.0); Globulin 2.9 g/dL (1.3-3.2); Glucose 112 mg/dl (74-100); Total Protein,Serum 5.8 g/dl (6.3-8.2)
--- NOTE | 2020-07-16 08:12 | HMH.ACPN2 ---
Internal Medicine - PN: Subj *Date: 07/16/20 *Time: 08:12 Interval history: Patient reports improvement in shortness of breath. Nausea now seems to only occur at night. She however has had frequent loose stools. Sutures were removed from her right ankle incision yesterday. Patient has been nonweightbearing due to prior left foot and ankle injury for which she was wearing an orthopedic boot and then her fracture dislocation of the right ankle. Exam Vital signs and Labs for Last 24 Hours: Temp Pulse Resp BP Pulse Ox 98.4 F 62 15 121/64 89 L 07/16/20 04:00 07/16/20 04:00 07/16/20 04:00 07/16/20 04:00 07/16/20 04:00 Laboratory Results - last 24 hr 07/15/20 05:00: Total Counted 100, Neutrophils % (Manual) 87 H, Lymphocytes % (Manual) 8 L, Monocytes % (Manual) 5, Platelet Estimate Normal, RBC Morphology Normal 07/16/20 05:30: WBC 12.5 H, RBC 3.35 L, Hgb 10.5 L, Hct 34.0 L, MCV 101.5 H, MCH 31.4 H, MCHC 30.9 L, RDW 14.9, Plt Count 235 D, MPV 9.1, Neut % (Auto) 79.9, Lymph % (Auto) 11.2, [place] % (Auto) 8.4, Eos % (Auto) 0.4, Baso % (Auto) 0.1, Neut # (Auto) 10.0 H, Lymph # (Auto) 1.4, [place] # (Auto) 1.1 H, Eos # (Auto) 0.1, Baso # (Auto) 0.0 07/16/20 05:30: Sodium 136, Potassium 3.7, Chloride 101, Carbon Dioxide 31 H, Anion Gap 7.7, BUN 16, Creatinine 1.00, Estimated Creat Clear 90, Estimated GFR 57 L, Est GFR ( Amer) 69, Glucose 112 H, Calcium 9.2, Total Bilirubin 0.3, AST 25, ALT 13, Alkaline Phosphatase 70, Total Protein 5.8 L, Albumin 2.9 L, Globulin 2.9, Albumin/Globulin Ratio 1.0 L I & O for Last 24 hours: Intake & Output 10/14/07/14/20 07/15/20 07/16/20 11:59 11:59 11:59 11:59 Intake Total 180 / 180 2618 / 2618 1130 / 1130 1608 / 1608 Output Total 200 / 200 2550 / 2550 2900 / 2900 1500 / 1500 Balance -20 68 / 68 -1770 / -1770 108 / 108 Weight 208 lb 1.862 oz 209 lb 10.554 oz 207 lb 3.752 oz 207 lb 7.28 oz Microbiology Reports for the Last 24 Hours: Microbiology 07/13/20 11:30 Sputum - Expectorated Sputum Gram Stain - Final 07/13/20 11:30 Sputum - Expectorated Sputum Sputum Culture - Preliminary Narrative: Patient looks well and shows no signs of increased work of breathing or respiratory distress. Oropharynx is moist. Lungs have improved aeration with a faint wheeze posteriorly on the left. Heart has a regular rate and rhythm. Abdomen is soft with mild left upper quadrant and left lower quadrant tenderness to palpation Assessment and Plan (1) Pneumonia due to COVID-19 virus Status: Acute Category: Medical Code(s): U07.1 - COVID-19; J12.89 - Other viral pneumonia (2) Infection of wound due to methicillin resistant Staphylococcus aureus (MRSA) Status: Acute Category: Medical Code(s): A49.02 - Methicillin resistant Staphylococcus aureus infection, unspecified site (3) Hypothyroidism (acquired) Status: Acute Category: Medical Code(s): E03.9 - Hypothyroidism, unspecified (4) Mediastinal adenopathy Status: Acute Category: Medical Code(s): R59.0 - Localized enlarged lymph nodes (5) Obesity (BMI 35.0-39.9 without comorbidity) Status: Acute Category: Medical Code(s): E66.9 - Obesity, unspecified (6) Pulmonary hypertension Status: Acute Category: Medical Code(s): I27.20 - Pulmonary hypertension, unspecified (7) Diastolic dysfunction Status: Chronic Category: Medical Code(s): I51.9 - Heart disease, unspecified (8) Tobacco use disorder Status: Chronic Category: Medical Code(s): F17.200 - Nicotine dependence, unspecified, uncomplicated - Assessment and plan all Dx Assessment and Plan for all problems:: 1. Continue Remdesivir and dexamethasone 2. Continue supplemental oxygen support. Patient is currently requiring 4 L/min of oxygen via the nasal cannula. During her hospitalization at the [facility] earlier in the year at discharge she was discharged home with supplemental oxygen set at 3 L/min which th
--- NOTE | 2020-07-16 09:42 | P.PN_ITS ---
Internal Medicine - PN: Subj *Date: 07/16/20 *Time: 09:42 Exam Vital signs and Labs for Last 24 Hours: Temp Pulse Resp BP Pulse Ox 97.2 F L 62 18 150/94 H 94 L 07/16/20 08:00 07/16/20 08:00 07/16/20 08:00 07/16/20 08:00 07/16/20 08:00 Laboratory Results - last 24 hr 07/16/20 05:30: WBC 12.5 H, RBC 3.35 L, Hgb 10.5 L, Hct 34.0 L, MCV 101.5 H, MCH 31.4 H, MCHC 30.9 L, RDW 14.9, Plt Count 235 D, MPV 9.1, Neut % (Auto) 79.9, Lymph % (Auto) 11.2, [place] % (Auto) 8.4, Eos % (Auto) 0.4, Baso % (Auto) 0.1, Neut # (Auto) 10.0 H, Lymph # (Auto) 1.4, [place] # (Auto) 1.1 H, Eos # (Auto) 0.1, Baso # (Auto) 0.0 07/16/20 05:30: Sodium 136, Potassium 3.7, Chloride 101, Carbon Dioxide 31 H, Anion Gap 7.7, BUN 16, Creatinine 1.00, Estimated Creat Clear 90, Estimated GFR 57 L, Est GFR ( Amer) 69, Glucose 112 H, Calcium 9.2, Total Bilirubin 0.3, AST 25, ALT 13, Alkaline Phosphatase 70, Total Protein 5.8 L, Albumin 2.9 L , Globulin 2.9, Albumin/Globulin Ratio 1.0 L I & O for Last 24 hours: Intake & Output 07/13/20 07/14/20 07/15/20 07/16/20 23:59 23:59 23:59 23:59 Intake Total 1861 / 1861 1677 / 1677 1554 / 1554 564 / 564 Output Total 2250 / 2650 2400 / 2550 1000 / 1000 2099 / 2099 Balance -389 / -789 -723 / -873 554 / 554 -1536 / -1536 Weight 94 kg 95.1 kg 94 kg 94.1 kg Microbiology Reports for the Last 24 Hours: Microbiology 07/13/20 11:30 Sputum - Expectorated Sputum Gram Stain - Final 07/13/20 11:30 Sputum - Expectorated Sputum Sputum Culture - Preliminary Assessment and Plan (1) Pneumonia due to COVID-19 virus Status: Acute Category: Medical Code(s): U07.1 - COVID-19; J12.89 - Other viral pneumonia (2) Infection of wound due to methicillin resistant Staphylococcus aureus (MRSA) Status: Acute Category: Medical Code(s): A49.02 - Methicillin resistant Staphylococcus aureus infection, unspecified site (3) Hypothyroidism (acquired) Status: Acute Category: Medical Code(s): E03.9 - Hypothyroidism, unspecified (4) Mediastinal adenopathy Status: Acute Category: Medical Code(s): R59.0 - Localized enlarged lymph nodes (5) Obesity (BMI 35.0-39.9 without comorbidity) Status: Acute Category: Medical Code(s): E66.9 - Obesity, unspecified (6) Pulmonary hypertension Status: Acute Category: Medical Code(s): I27.20 - Pulmonary hypertension, unspecified (7) Diastolic dysfunction Status: Chronic Category: Medical Code(s): I51.9 - Heart disease, unspecified (8) Tobacco use disorder Status: Chronic Category: Medical Code(s): F17.200 - Nicotine dependence, unspecified, uncomplicated The patient's infection will respond to the chosen ABx?: Yes Is the patient receiving the right drug, dose, and route?: Yes Could a more targeted ABx be ordered?: No (SPUTUM CX + FOR GRAM + COCCI IN PAIRS. BLOOD CULTURES NEGATIVE.)
[2020-07-16 10:58] LABS: Vancomycin,Trough 13.2 ug/mL (5.0-10.0)
--- NOTE | 2020-07-16 14:51 | HMH.PHACONS ---
- Pharmacy Consult Date: 07/16/20 Time: 14:51 Referring provider: DR. BURGER Reason for Consult:: VANCOMYCIN TROUGH LEVEL Allergies and ADEs:: Allergies Allergy/AdvReac Type Severity Reaction Status Date / Time Cephalosporins Allergy RASH Verified 07/12/20 16:56 erythromycin base Allergy Hives Verified 07/12/20 16:56 minocycline Allergy RASH Verified 07/12/20 16:56 penicillin G Allergy Hives Verified 07/12/20 16:56 Sulfa (Sulfonamide Allergy RASH Verified 07/12/20 16:56 Antibiotics) Home Medications:: Home Medications Medication Instructions Recorded Confirmed Type Tizanidine HCl [Zanaflex 4mg 4 mg PO BID PRN 07/30/19 07/12/20 History tab] Potassium Chloride [Micro-K 10mEq 20 meq PO BID #60 capsule.er 07/31/19 07/12/20 Rx cap] Furosemide [Furosemide 40MG tAB*] 40 mg PO NEEDED PRN 08/31/19 07/12/20 History levothyroxine 75 mcg tablet 75 mcg PO DAILY #90 tab 10/30/19 07/12/20 Rx diclofenac sodium 1 % topical gel 4 g TOPICAL QID PRN 30 Days #100 g 03/14/20 07/12/20 Rx albuterol sulfate 90 mcg/actuation 2 inh INHALATION TID PRN #18 g 05/03/20 07/12/20 Rx aerosol inhaler oxycodone-acetaminophen 5 mg-325 1 tab PO Q8H PRN 7 Days #21 tab 07/07/20 07/13/20 Rx mg tablet Fluconazole [Diflucan 100mg tablet] 100 mg PO DAILY 07/12/20 07/12/20 History Gabapentin 600 mg PO TID 07/12/20 07/12/20 History Linezolid 600 mg PO Q12H 07/12/20 07/12/20 History levoFLOXacin [Levofloxacin 750MG 750 mg PO DAILY 07/12/20 07/12/20 History Tablet*] Omeprazole 40 mg PO DAILY 07/13/20 07/12/20 History Trazodone HCl 100 mg PO HS 07/13/20 07/13/20 History Height: 1.63 m Weight: 94.1 kg Laboratory Results:: Laboratory Results - last 24 hr 07/16/20 05:30: WBC 12.5 H, RBC 3.35 L, Hgb 10.5 L, Hct 34.0 L, MCV 101.5 H, MCH 31.4 H, MCHC 30.9 L, RDW 14.9, Plt Count 235 D, MPV 9.1, Neut % (Auto) 79.9, Lymph % (Auto) 11.2, [place] % (Auto) 8.4, Eos % (Auto) 0.4, Baso % (Auto) 0.1, Neut # (Auto) 10.0 H, Lymph # (Auto) 1.4, [place] # (Auto) 1.1 H, Eos # (Auto) 0.1, Baso # (Auto) 0.0 07/16/20 05:30: Sodium 136, Potassium 3.7, Chloride 101, Carbon Dioxide 31 H, Anion Gap 7.7, BUN 16, Creatinine 1.00, Estimated Creat Clear 90, Estimated GFR 57 L, Est GFR ( Amer) 69, Glucose 112 H, Calcium 9.2, Total Bilirubin 0.3, AST 25, ALT 13, Alkaline Phosphatase 70, Total Protein 5.8 L, Albumin 2.9 L, Globulin 2.9, Albumin/Globulin Ratio 1.0 L 07/16/20 10:00: Vancomycin Trough 13.2 H Medical History: Reports:: Anxiety, Atherosclerotic Heart Disease, Congestive Heart Failure, Chronic Obstructive Pulmonary Disease (COPD), Coronary Artery Disease, Depression, Gall Bladder Disease, Gastroesophageal Reflux Disease(GERD), Hypertension, Lung Disease, Migraine, MRSA Denies:: Cancer, Diabetes Mellitus Type 1, Diabetes Mellitus Type 2, Internal Pacemaker, Seizures Assessment and Plan (1) Pneumonia due to COVID-19 virus Status: Acute Category: Medical Code(s): U07.1 - COVID-19; J12.89 - Other viral pneumonia (2) Infection of wound due to methicillin resistant Staphylococcus aureus (MRSA) Status: Acute Category: Medical Code(s): A49.02 - Methicillin resistant Staphylococcus aureus infection, unspecified site (3) Hypothyroidism (acquired) Status: Acute Category: Medical Code(s): E03.9 - Hypothyroidism, unspecified (4) Mediastinal adenopathy Status: Acute Category: Medical Code(s): R59.0 - Localized enlarged lymph nodes (5) Obesity (BMI 35.0-39.9 without comorbidity) Status: Acute Category: Medical Code(s): E66.9 - Obesity, unspecified (6) Pulmonary hypertension Status: Acute Category: Medical Code(s): I27.20 - Pulmonary hypertension, unspecified (7) Diastolic dysfunction Status: Chronic Category: Medical Code(s): I51.9 - Heart disease, unspecified (8) Tobacco use disorder Status: Chronic Category: Medical Code(s): F17.200 - Nicotine dependence, unspecified, uncomplicated - Assessment
--- NOTE | 2020-07-16 17:40 | PC.NURSE ---
Pt has been pleasant and cooperative this shift. A&O X4. Pt has complained of pain X2 and received Morphine per NOV with favorable results. Pt complains of frequent nausea and has been medicated with Phenergan per NOV X2. No complaints of SOA. RLE incision dressing is C/D/I. Generalized, non-pitting edema noted to RLE. Lung sounds reveal expiratory wheezing. Pt is currently wearing O2 via NC @ 4 LPM with sats. >92%. Pt de-sats rather quickly with exertion and requires 3-4 minutes to recover, although no distress is evident. Pt ambulates independently in her room and uses the BSC to void clear, yellow urine without issue. 2 episodes of diarrhea this shift. Awaiting stool sample results. Telemetry reveals NSR. 20 G peripheral IV in the RT wrist DC'd this AM due to infiltration. PICC in place to the RT upper arm is patent and SL. VSS. Call light within reach. Will continue to monitor.
[2020-07-17] VITALS (8 sets, daily range): BP systolic 108–159; BP diastolic 59–88; PULSE 45–60; RESP 16–18; TEMP 35.7–37.1; O2SAT 90–97; BMI 34.7
--- NOTE | 2020-07-17 04:48 | PC.NURSE ---
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
[2020-07-17 06:31] LABS: Basophils % 0.2 % (0.1-2.0); Eosinophils # 0.1 K/mm3 (0.0-0.4); Eosinophils % 0.5 % (0.1-12.0); Hematocrit 38.2 % (37.0-47.0); Hemoglobin 11.8 g/dL (12.2-16.2); Lymphocytes # 2.1 K/mm3 (0.7-4.5); Lymphocytes % 16.5 % (10-50); Mean Platelet Volume 8.4 fl (7.4-10.4); Monocytes # 1.3 K/mm3 (0.1-1.0); Monocytes % 10.3 % (1.7-9.3); Neutrophils % 72.5 % (37.0-80.0); Platelet Count 256 K/mm3 (142-424); Red Blood Count 3.82 M/mm3 (4.20-5.40); Red Cell Distribution Width 14.8 % (11.5-17.5); White Blood Count 12.5 K/mm3 (4.8-10.8)
[2020-07-17 06:41] LABS: Chloride 93 mmol/L (98-107); Potassium 3.9 mmoL/L (3.5-5.1); Sodium 136 mmol/L (136-145)
[2020-07-17 06:43] LABS: Blood Urea Nitrogen 17 mg/dl (7-17); Creatinine Clearance Estimated 98 mL/min (50-200); Estimated Glomerular Filt Rate 64 ml/min (>60); GFR (African American) 78 ML/MIN (>60)
[2020-07-17 06:44] LABS: Alanine Aminotransferase 16 U/L (12-78); Albumin Level 3.1 g/dl (3.5-5.0); Alkaline Phosphatase 68 U/L (38-126); Anion Gap 8.9 mEq/L (5-15); Aspartate Amino Transferase 26 U/L (14-36); Bilirubin,Total 0.3 mg/dl (0.2-1.3); Calcium 9.4 mg/dl (8.4-10.2); Carbon Dioxide 38 mmol/L (22.0-30.0); Globulin 3.1 g/dL (1.3-3.2); Glucose 105 mg/dl (74-100); Total Protein,Serum 6.2 g/dl (6.3-8.2)
--- NOTE | 2020-07-17 06:52 | PC.NURSE ---
PICC in right upper arm intact and patent at this time
[2020-07-17 07:03] LABS: Erythrocyte Sedimentation Rate 90 mm/hr (0-30)
--- NOTE | 2020-07-17 07:55 | HMH.ACPN2 ---
Internal Medicine - PN: Subj *Date: 07/17/20 *Time: 07:55 Interval history: Primary complaint continues to be abdominal pain with nausea. She had a few small loose stools yesterday but more significant nausea with an episode of large-volume emesis at shift change yesterday evening. Patient continues to complain of abdominal pain as well. Diet is primarily been liquids although patient did try to eat a salad prior to her episode of emesis. Patient has been weaned to 3 L/min via nasal cannula and O2 sats are maintaining in the mid 90s. Exam Vital signs and Labs for Last 24 Hours: Temp Pulse Resp BP Pulse Ox 97.5 F L 52 L 16 152/77 H 96 07/17/20 04:00 07/17/20 04:00 07/17/20 04:00 07/17/20 04:00 07/17/20 04:00 Laboratory Results - last 24 hr 07/16/20 10:00: Vancomycin Trough 13.2 H 07/17/20 05:40: WBC 12.5 H, RBC 3.82 L, Hgb 11.8 L, Hct 38.2, MCV 100.0 H, MCH 31.0, MCHC 31.0 L, RDW 14.8, Plt Count 256, MPV 8.4, Neut % (Auto) 72.5, Lymph % (Auto) 16.5, [place] % (Auto) 10.3 H, Eos % (Auto) 0.5, Baso % (Auto) 0.2, Neut # (Auto) 9.0 H, Lymph # (Auto) 2.1, [place] # (Auto) 1.3 H, Eos # (Auto) 0.1, Baso # (Auto) 0.0 07/17/20 05:40: Sodium 136, Potassium 3.9, Chloride 93 L, Carbon Dioxide 38 H D, Anion Gap 8.9, BUN 17, Creatinine 0.90, Estimated Creat Clear 98, Estimated GFR 64, Est GFR ( Amer) 78, Glucose 105 H, Calcium 9.4, Total Bilirubin 0.3, AST 26, ALT 16, Alkaline Phosphatase 68, C-Reactive Protein 27.0 H, Total Protein 6.2 L, Albumin 3.1 L, Globulin 3.1, Albumin/Globulin Ratio 1.0 L 07/17/20 05:40: ESR 90 H I & O for Last 24 hours: Intake & Output 07/14/20 07/15/20 07/16/20 07/17/20 11:59 11:59 11:59 11:59 Intake Total 2618 / 2618 1130 / 1130 1728 / 1728 1270 / 1270 Output Total 2550 / 2550 2900 / 2900 2100 / 2100 1550 / 1550 Balance 68 / 68 -1770 / -1770 -372 / -372 -280 / -280 Weight 209 lb 10.554 oz 207 lb 3.752 oz 207 lb 7.28 oz 203 lb 4.259 oz Microbiology Reports for the Last 24 Hours: Microbiology 07/13/20 11:30 Sputum - Expectorated Sputum Gram Stain - Final 07/13/20 11:30 Sputum - Expectorated Sputum Sputum Culture - Preliminary Narrative: Patient shows no signs of increased work of breathing or respiratory distress. Lungs have atelectatic sounds this morning and faint expiratory wheeze. Heart has a regular rate and rhythm. Abdomen is soft with epigastric tenderness and left upper quadrant tenderness. Assessment and Plan (1) Pneumonia due to COVID-19 virus Status: Acute Category: Medical Code(s): U07.1 - COVID-19; J12.89 - Other viral pneumonia (2) Infection of wound due to methicillin resistant Staphylococcus aureus (MRSA) Status: Acute Category: Medical Code(s): A49.02 - Methicillin resistant Staphylococcus aureus infection, unspecified site (3) Hypothyroidism (acquired) Status: Acute Category: Medical Code(s): E03.9 - Hypothyroidism, unspecified (4) Mediastinal adenopathy Status: Acute Category: Medical Code(s): R59.0 - Localized enlarged lymph nodes (5) Obesity (BMI 35.0-39.9 without comorbidity) Status: Acute Category: Medical Code(s): E66.9 - Obesity, unspecified (6) Pulmonary hypertension Status: Acute Category: Medical Code(s): I27.20 - Pulmonary hypertension, unspecified (7) Diastolic dysfunction Status: Chronic Category: Medical Code(s): I51.9 - Heart disease, unspecified (8) Tobacco use disorder Status: Chronic Category: Medical Code(s): F17.200 - Nicotine dependence, unspecified, uncomplicated (9) Abdominal pain Status: Acute Category: Medical Code(s): R10.9 - Unspecified abdominal pain - Assessment and plan all Dx Assessment and Plan for all problems:: 1. Continue Remdesivir and dexamethasone for COVID 19 pneumonia 2. Continue Levaquin and vancomycin for Enterobacter and MRSA wound infection 3. Await diarrhea panel results 4. Repeat CTs abdomen and pelvis with oral and IV contrast.
--- NOTE | 2020-07-17 07:59 | CT_ITS ---
PROCEDURE: CT ABDOMEN PELVIS W CON CLINICAL INDICATION: abdominal pain Abdominal pain with nausea and vomiting COMPARISON: CT CT ABDOMEN PELVIS WO CON from 07/12/2020 TECHNIQUE: IV Contrast: 75ML OPTIRAY 350 Oral Contrast 10ml Gastroview Axial images obtained with sagittal and coronal reformats. All CT scans at the facility use one or more dose reduction, viz: automated exposure control, ma/kV adjustment per patient size (including targeted exams where dose is matched to indication, i.e. head), or iterative reconstruction technique. FINDINGS: LOWER THORAX: Mild diffuse ground-glass attenuation/mosaic attenuation of the lower lung zones consistent with COVID 19 pneumonia ABDOMEN & PELVIS: Status post cholecystectomy. The spleen, adrenal glands, pancreas, have an unremarkable appearance. There are 3 left renal calculi the largest at 6 mm in the upper pole of the left kidney. No hydronephrosis. No ureteral calculi. There are mildly prominent small bowel loops measuring up to 3.2 cm. There is an area of narrowing involving the mid to distal portion of the ileum. This is of questionable clinical significance. The bowel is dilated proximal to this but there is a smooth transition. This is best seen on series 3, image 91 and series 601, image 36. This may only be due to an area of peristalsis. No significant mucosal thickening is evident at this region. No evidence of appendicitis or diverticulitis. There has been a prior hysterectomy. Are small bilateral inguinal hernias containing fat. No acute bony findings. Small sclerotic focus is present in the left acetabular roof posteriorly. There is a small amount of gas in the subcutaneous region of the stomach anteriorly and could be due to recent injection site. IMPRESSION: 1. Mild diffuse ground-glass attenuation in the lower lobes consistent with COVID 19 pneumonia. This has improved somewhat. 2. Mildly distended small bowel loops with nondistended distal ileum. Questionable transition point in the right lower quadrant versus an area of peristalsis. Partial obstruction is considered. Enteritis/ileus is also consideration. Small-bowel follow-through may provide further evaluation. 3. Left nephrolithiasis Dictated by: Paresh Li MD 07/17/2020 11:59 Paresh Li MD in [facility] 07/17/2020 11:59
--- NOTE | 2020-07-17 17:04 | PC.NURSE ---
Pt has been pleasant and cooperative this shift. A&O X4. Pt has complained of pain X2 and received Morphine per MAR with favorable results. Pt complains of frequent nausea and has been medicated with Phenergan X1 per MAR. No complaints of SOA. RLE incision dressing is C/D/I. No edema noted. Lungs CTA. Pt is currently wearing O2 via NC @ 3 LPM with sats. >90%. Pt de-sats rather quickly with exertion and requires 3-4 minutes to recover, although no distress is evident. Pt ambulates independently in her room and uses the BSC to void clear, yellow urine without issue. 2 episodes of diarrhea this shift. Multiple episodes of emesis. Greenish/yellow in color. Awaiting stool sample results. Telemetry reveals NSR with periods of SB. PICC in place to RT upper arm is patent and SL. VSS. Call light within reach. Will continue to monitor.
[2020-07-18] VITALS: BP 107/60; PULSE 45; PULSE 50; RESP 16; TEMP 36; O2SAT 96
[2020-07-18 04:00] VITALS: BP 128/66; PULSE 40; PULSE 44; RESP 16; TEMP 36.4; O2SAT 94
[2020-07-18 05:00] VITALS: BMI 34.4
--- NOTE | 2020-07-18 05:10 | PC.NURSE ---
shift summary, pt has rested well t/o shift, has had no complaints of N/V this shift, has complained of pain in abdomen, morphine given 1x per MAR, using BSC independently with clear, pale yellow urine, at 0300 pt was on room air and O2 sat was 95-99% for 13 minutes, then dropped to 86% but recovered within 2 minutes with 2L NC, pt has remained on 2L, has remained on 2L NC since this time with O2 sats 94% or greater, pt has been extremely bradycardic this shift dropping as low as 39, and remaining between 40-45 the rest of the time, pt is asymptomatic, reports no dizziness, lightheadedness, shortness of breath, or any chest pain or pounding feeling in chest, dressing remains on RLE, C/D/I, PICC line in RUE intact and patent
--- NOTE | 2020-07-18 06:55 | HMH.ACPN2 ---
Internal Medicine - PN: Subj *Date: 07/18/20 *Time: 06:55 Interval history: Patient has had less nausea and vomiting over the last [address] scan of the abdomen and pelvis with IV and oral contrast revealed possibility of small bowel obstruction but ileus and enteritis are also part of the differential based on the CT scan. Patient's diet was changed to a liquid diet which she seemed to tolerate better. She continues to complain of abdominal pain for which she is receiving IV morphine. Nursing staff was able to wean patient to 2 L of oxygen and she has maintained her sats in the mid to high 90s. Exam Vital signs and Labs for Last 24 Hours: Temp Pulse Resp BP Pulse Ox 97.6 F 44 L 16 128/66 94 L 07/18/20 04:00 07/18/20 04:00 07/18/20 04:00 07/18/20 04:00 07/18/20 04:00 Laboratory Results - last 24 hr 07/17/20 05:40: ESR 90 H I & O for Last 24 hours: Intake & Output 07/15/20 07/16/20 07/17/20 07/18/20 11:59 11:59 11:59 11:59 Intake Total 1130 / 1130 1728 / 1728 1270 / 1270 1315 / 1315 Output Total 2900 / 2900 2100 / 2100 2050 / 2050 1250 / 1250 Balance -1770 / -1770 -372 / -372 -780 / -780 65 / 65 Weight 207 lb 3.752 oz 207 lb 7.28 oz 203 lb 4.259 oz 202 lb 2.622 oz Microbiology Reports for the Last 24 Hours: Microbiology 07/12/20 20:40 Blood Blood Culture - Final NO GROWTH AFTER 5 DAYS 07/12/20 20:40 Blood Blood Culture - Final NO GROWTH AFTER 5 DAYS 07/13/20 11:30 Sputum - Expectorated Sputum Gram Stain - Final 07/13/20 11:30 Sputum - Expectorated Sputum Sputum Culture - Preliminary Narrative: Patient is in no distress and shows no signs of respiratory distress. Lung exam reveals clear lungs anteriorly and in the posterior bases some wheezes. Heart rate is bradycardic this morning. Abdomen is soft with some left upper and lower quadrant tenderness to palpation. Bowel sounds are hypoactive. Assessment and Plan (1) Pneumonia due to COVID-19 virus Status: Acute Category: Medical Code(s): U07.1 - COVID-19; J12.89 - Other viral pneumonia Improving. Continue supplemental oxygen to keep sats greater than 94%. Remdesivir has been discontinued. Continue dexamethasone until discharge (2) Infection of wound due to methicillin resistant Staphylococcus aureus (MRSA) Status: Acute Category: Medical Code(s): A49.02 - Methicillin resistant Staphylococcus aureus infection, unspecified site Continue IV vancomycin and oral levofloxacin for MRSA and Enterococcus wound infection. Patient is nonweightbearing to the right leg but may bear weight on the left leg with use of a walker. (3) Intestinal infection due to other organism, not elsewhere classified Status: Acute Category: Medical Code(s): A08.8 - Other specified intestinal infections Continue liquid diet. Encourage patient to attempt to ambulate within her room. (4) Hypothyroidism (acquired) Status: Acute Category: Medical Code(s): E03.9 - Hypothyroidism, unspecified (5) Mediastinal adenopathy Status: Acute Category: Medical Code(s): R59.0 - Localized enlarged lymph nodes (6) Obesity (BMI 35.0-39.9 without comorbidity) Status: Acute Category: Medical Code(s): E66.9 - Obesity, unspecified (7) Pulmonary hypertension Status: Acute Category: Medical Code(s): I27.20 - Pulmonary hypertension, unspecified (8) Diastolic dysfunction Status: Chronic Category: Medical Code(s): I51.9 - Heart disease, unspecified (9) Tobacco use disorder Status: Chronic Category: Medical Code(s): F17.200 - Nicotine dependence, unspecified, uncomplicated (10) Abdominal pain Status: Acute Category: Medical Code(s): R10.9 - Unspecified abdominal pain (11) Ileus Status: Acute Category: Medical Code(s): K56.7 - Ileus, unspecified (12) Bradycardia Status: Acute Category: Medical Code(s): R00.1 - Bradycardi
[2020-07-18 08:00] VITALS: BP 123/56; PULSE 50; PULSE 59; RESP 20; TEMP 36.2; O2SAT 97
[2020-07-18 08:12] LABS: Basophils % 0.1 % (0.1-2.0); Eosinophils % 0.1 % (0.1-12.0); Hemoglobin 11.8 g/dL (12.2-16.2); Lymphocytes # 1.6 K/mm3 (0.7-4.5); Lymphocytes % 14.6 % (10-50); Mean Corpuscular HGB Conc 31.9 g/dL (31.8-35.4); Mean Corpuscular Hemoglobin 31.5 pg (27.0-31.2); Mean Corpuscular Volume 98.6 fl (81-99); Mean Platelet Volume 10.1 fl (7.4-10.4); Monocytes # 0.8 K/mm3 (0.1-1.0); Monocytes % 7.4 % (1.7-9.3); Neutrophils # 8.3 K/mm3 (1.8-7.8); Neutrophils % 77.9 % (37.0-80.0); Platelet Count 199 K/mm3 (142-424); Red Blood Count 3.76 M/mm3 (4.20-5.40); Red Cell Distribution Width 15.1 % (11.5-17.5); White Blood Count 10.7 K/mm3 (4.8-10.8)
--- NOTE | 2020-07-18 08:21 | HMH.PULMPN ---
Internal Medicine - PN: Subj *Date: 07/18/20 *Time: 08:21 Assessment and Plan (1) Pneumonia due to COVID-19 virus Status: Acute Category: Medical Code(s): U07.1 - COVID-19; J12.89 - Other viral pneumonia (2) Infection of wound due to methicillin resistant Staphylococcus aureus (MRSA) Status: Acute Category: Medical Code(s): A49.02 - Methicillin resistant Staphylococcus aureus infection, unspecified site (3) Intestinal infection due to other organism, not elsewhere classified Status: Acute Category: Medical Code(s): A08.8 - Other specified intestinal infections (4) Hypothyroidism (acquired) Status: Acute Category: Medical Code(s): E03.9 - Hypothyroidism, unspecified (5) Mediastinal adenopathy Status: Acute Category: Medical Code(s): R59.0 - Localized enlarged lymph nodes (6) Obesity (BMI 35.0-39.9 without comorbidity) Status: Acute Category: Medical Code(s): E66.9 - Obesity, unspecified (7) Pulmonary hypertension Status: Acute Category: Medical Code(s): I27.20 - Pulmonary hypertension, unspecified (8) Diastolic dysfunction Status: Chronic Category: Medical Code(s): I51.9 - Heart disease, unspecified (9) Tobacco use disorder Status: Chronic Category: Medical Code(s): F17.200 - Nicotine dependence, unspecified, uncomplicated (10) Abdominal pain Status: Acute Category: Medical Code(s): R10.9 - Unspecified abdominal pain (11) Ileus Status: Acute Category: Medical Code(s): K56.7 - Ileus, unspecified (12) Bradycardia Status: Acute Category: Medical Code(s): R00.1 - Bradycardia, unspecified - Assessment and plan all Dx Assessment and Plan for all problems:: Interval update: Respiratory improved, currently on 2 L nasal cannula. White count improved. Renal function stable. CT abdomen that showed lower lung kent showed significant improvement in the noted GGO.
[2020-07-18 08:37] LABS: Chloride 98 mmol/L (98-107); Sodium 135 mmol/L (136-145)
[2020-07-18 08:39] LABS: Blood Urea Nitrogen 15 mg/dl (7-17); Creatinine Clearance Estimated 110 mL/min (50-200); Estimated Glomerular Filt Rate 73 ml/min (>60); GFR (African American) 89 ML/MIN (>60)
[2020-07-18 08:40] LABS: Alanine Aminotransferase 45 U/L (12-78); Albumin Level 2.9 g/dl (3.5-5.0); Alkaline Phosphatase 66 U/L (38-126); Aspartate Amino Transferase 59 U/L (14-36); Bilirubin,Total 0.2 mg/dl (0.2-1.3); Calcium 8.8 mg/dl (8.4-10.2); Carbon Dioxide 33 mmol/L (22.0-30.0); Globulin 2.8 g/dL (1.3-3.2); Glucose 98 mg/dl (74-100); Total Protein,Serum 5.7 g/dl (6.3-8.2)
--- NOTE | 2020-07-18 10:00 | ECG_ITS ---
APPROVED REPORT Exam: Resting ECG HR:50 bpm ECG Measurements Heart Rate 50 AXES HI 144 P 45 QRSd 92 QRS 63 QT 452 T 20 QTc 412 Conclusion Sinus bradycardia Possible Left atrial enlargement Nonspecific T wave abnormality Abnormal ECG Electronically signed by : Jason Spear, 07/18/2020 15:07:09
--- NOTE | 2020-07-18 11:03 | HMH.OTEV ---
OT Inpatient Evaluation Rehab OT IP Evaluation Start: 07/18/20 09:27 Freq: ONCE Status: Complete Protocol: Document 07/18/20 10:55 [facility] (Rec: 07/18/20 11:03 [facility] [id number]) Rehab OT IP Assessment Subjective History Pt oriented x 3 on arrival. Pt agreeable to engage in therapy evaluation Pt reports prior to being hosptialized she lived at home with her 83 year old father and her brother. Pt was admitted via ED on 07/13/20 due to nausea, vomitting, and diarrhea. Pt tested positive for COVID. 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 Pt reports recently she has been having assistance with IADL's due to her breaking her foot 11 weeks ago and required 2 surgeries. Pt is still unable to weightbear through right foot. Pt has a family friend who was coming in and assisting her with some ADL's as needed. Pt was using wheelchair in order to get around the house. Subjective I can't go home. Objective Patient Orientation Person,Place,Birthday Upper Extremity Gross ROM WFL Bed Mobility bed mobility-scooting,bed mobility - supine/sit,bed mobility - rolling Assist Level Contact Guard/Hand Hold Transfer Training Sit/Stand Transfer Assist Level Contact Guard/Hand Hold Rehab OT IP prob,goals,plan Problems Date of Evaluation: 07/18/20 OT IP Problems Bed Mobility,Transfers,Gait, Balance Rehab Potential Rehab Potential Good Equipment Needs Assistive Devices Wheelchair Plan OT intervention Plan Bed Mobility,Transfers,Gait, Balance,Self care,Safety, Therapeutic Exercise OT Plan Frequency Daily Duration LOS Discharge Goals Sit to Stand Chair Transfer Ability Supervision/Stand by,Contact Guard/Hand Hold Chair Transfer Ability Supervision/Stand by,Con
--- NOTE | 2020-07-18 11:04 | HMH.OTEV ---
OT Inpatient Evaluation Rehab OT IP Evaluation Start: 07/18/20 09:27 Freq: ONCE Status: Complete Protocol: Document 07/18/20 10:55 [facility] (Rec: 07/18/20 11:03 [facility] [id number]) Rehab OT IP Assessment Subjective History Pt oriented x 3 on arrival. Pt agreeable to engage in therapy evaluation Pt reports prior to being hosptialized she lived at home with her 83 year old father and her brother. Pt was admitted via ED on 07/13/20 due to nausea, vomitting, and diarrhea. Pt tested positive for COVID. 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 Pt reports recently she has been having assistance with IADL's due to her breaking her foot 11 weeks ago and required 2 surgeries. Pt is still unable to weightbear through right foot. Pt has a family friend who was coming in and assisting her with some ADL's as needed. Pt was using wheelchair in order to get around the house. Subjective I can't go home. Objective Patient Orientation Person,Place,Birthday Upper Extremity Gross ROM WFL Bed Mobility bed mobility-scooting,bed mobility - supine/sit,bed mobility - rolling Assist Level Contact Guard/Hand Hold Transfer Training Sit/Stand Transfer Assist Level Contact Guard/Hand Hold Rehab OT IP prob,goals,plan Problems Date of Evaluation: 07/18/20 OT IP Problems Bed Mobility,Transfers,Gait, Balance Rehab Potential Rehab Potential Good Equipment Needs Assistive Devices Wheelchair Plan OT intervention Plan Bed Mobility,Transfers,Gait, Balance,Self care,Safety, Therapeutic Exercise OT Plan Frequency Daily Duration LOS Discharge Goals Sit to Stand Chair Transfer Ability Supervision/Stand by,Contact Guard/Hand Hold Chair Transfer Ability Supervision/Stand by,Con
[2020-07-18 12:00] VITALS: BP 137/58; PULSE 49; PULSE 50; RESP 15; TEMP 36.9
--- NOTE | 2020-07-18 12:15 | HMH.PULMPN ---
Internal Medicine - PN: Subj *Date: 07/18/20 *Time: 12:15 Interval history: No Acute respiratory events over the weekend. She Is tearful this morning stating that she need to wait 3 more weeks to get back with her family and also need to stay away from her father until she tested negative for Covid Exam - Constitutional Constitutional:: comfortable, healthy appearing, cooperative Comment:: Mild distress - HENMT Exam HENMT: normocephalic, atraumatic, head normal to inspection, face & sinuses non-tender, oral mucosa normal, moist mucous membranes, posterior oropharanx norm - Eye Exam Eyes:: normal appearance both eyes and related structures, eyelids normal, normal conjunctiva, normal sclera - Neck Exam Neck:: normal visual inspection, thyroid normal, no lymphadenopathy - Respiratory Exam Respiratory:: able to speak in complete sentences, normal respiratory effort, crackles - Cardiovascular Exam Cardiac:: regular rhythm, S1, S2 - GI Exam GI:: soft, no hepatosplenomegaly, normal to inspection, normoactive bowel sounds, no tenderness - Skin Exam Skin: no rash, normal elastacity, no lesions, normal turgor - Neurological Exam Neurological: alert, awake, oriented X3 - Extremities Exam Extremities: no cyanosis, no clubbing, no edema - Psychiatric Exam Psychiatric: normal affect, appearance grossly normal, affect normal, attitude normal, no homicidal ideation, no suicidal ideation Assessment and Plan (1) Pneumonia due to COVID-19 virus Status: Acute Category: Medical Code(s): U07.1 - COVID-19; J12.89 - Other viral pneumonia (2) Infection of wound due to methicillin resistant Staphylococcus aureus (MRSA) Status: Acute Category: Medical Code(s): A49.02 - Methicillin resistant Staphylococcus aureus infection, unspecified site (3) Intestinal infection due to other organism, not elsewhere classified Status: Acute Category: Medical Code(s): A08.8 - Other specified intestinal infections (4) Hypothyroidism (acquired) Status: Acute Category: Medical Code(s): E03.9 - Hypothyroidism, unspecified (5) Mediastinal adenopathy Status: Acute Category: Medical Code(s): R59.0 - Localized enlarged lymph nodes (6) Obesity (BMI 35.0-39.9 without comorbidity) Status: Acute Category: Medical Code(s): E66.9 - Obesity, unspecified (7) Pulmonary hypertension Status: Acute Category: Medical Code(s): I27.20 - Pulmonary hypertension, unspecified (8) Diastolic dysfunction Status: Chronic Category: Medical Code(s): I51.9 - Heart disease, unspecified (9) Tobacco use disorder Status: Chronic Category: Medical Code(s): F17.200 - Nicotine dependence, unspecified, uncomplicated (10) Abdominal pain Status: Acute Category: Medical Code(s): R10.9 - Unspecified abdominal pain (11) Ileus Status: Acute Category: Medical Code(s): K56.7 - Ileus, unspecified (12) Bradycardia Status: Acute Category: Medical Code(s): R00.1 - Bradycardia, unspecified - Assessment and plan all Dx Assessment and Plan for all problems:: #Acute hypoxic respiratory failure: #COVID-19 pneumonia: 59-year-old male more than [id number] smoking history, ankle fracture MRSA infection receiving multiple antibiotics including levofloxacin clindamycin and Zyvox, recurrent pneumonias presented with worsening shortness of breath fevers productive phlegm and abdominal pain and tested positive for COVID-19 pneumonia. Infectious work-up on this admission -COVID-19 PCR positive, viral PCR negative, blood cultures [id number] hrs, sputum culture preliminary result showed rare gram-positive cocci in pairs. Possible etiologies for her acute hypoxic respiratory failure include COVID-19 pneumonia, however the role of diastolic heart failure cannot be completely ruled out. Interval Update: Patient respiratory status improving, this morning on 2 L nasal cannula saturating greater than 96%. CTA abdomen performed nicholas
--- NOTE | 2020-07-18 12:17 | HMH.PTEV ---
Physical Therapy Evaluation Rehab PT IP Evaluation Start: 07/18/20 09:27 Freq: ONCE Status: Active Protocol: Document 07/18/20 12:13 [facility] (Rec: 07/18/20 12:16 [facility] [id number]) Subjective/History History History 59 yowf adm to [facility] with Covid- 19 related weakness and possible PNA. She reports she is currently NWB on R LE due to prior surgery and she has been independent with all transfers using W/C for mobility at home. Subjective Subjective Pt with no new c/o this am. Rehab PT IP Eval Objective Appearance Patient Behavior Appropriate Patient Orientation Person,Place,Time Difficulty following instructions none Speech Pattern Clear Ambulation Patient Able to Ambulate No Balance Ability to Arise Able, w/o using arms Sitting Balance Steady, safe Standing Balance Narrow stance w/o support Dynamic Sitting Balance Ability Good Dynamic Standing Balance Ability Good Transfers Bed Transfer Ability Supervision/Stand by Chair Transfer Ability Supervision/Stand by Sit to Stand Bed Transfer Ability Supervision/Stand by Sit to Stand Chair Transfer Ability Supervision/Stand by ROM All Extremities PT ROM Status WFL Abnormal ROM Comment except R ankle NT MMT All Extremities PT MMT WFL Abnormal MMT Grade except R ankle NT Rehab PT IP prob,goals,plan Problems Date of Evaluation: 07/18/20 Discharge Plan PT Discharge Plan Pt is independent with all mobility as she is allowed to perform due to her NWB of the R LE. She is appropriate for rehab placement. G -code Required No Eval Complexity Eval Charge Codes 90254 - Moderate Complexity PHYSICIAN CERTIFICATION: I certify the specified therapy services for Becca Rai are required, authorized, and reviewed every 30 days.
[2020-07-18 16:00] VITALS: BP 122/69; PULSE 50; PULSE 51; RESP 16; TEMP 36.6; O2SAT 99
--- NOTE | 2020-07-18 16:44 | DIET.NUTRFU ---
Good toleration clear liquids other than lunch today which was poorly tolerated. N/V less but abdominal pain continues. Clear liquid supplements being provided. Total weight loss t/o stay 6#.
--- NOTE | 2020-07-18 18:23 | PC.NURSE ---
PATIENT A&O X4, LUNGS ARE CLEAR AND DIMINISHED. PUSLES EQUAL. PATIENT IS ON 1.5L NC. PATIENT HAD ONE EPISODE OF VOMITING, 200 ML TOTAL. MD AWARE. ON SEVERAL ADL CHECKS, THIS RN HAS FOUND PATIENT WITH TEARS IN HER EYES. THIS RN INQUIRES TO WHAT IS WRONG. PATIENT STATES THERE IS NOTHING, JUST SAD SHE CAN'T SEE FAMILY. THIS RN PROVIDED SUPPORT AND REASSURED PATIENT THAT WITHIN TIME SHE WILL SEE HER FAMILY. PATIENT AMBULATES TO BEDSIDE COMMODE, NO CONCERNS. NO NEW NEEDS AT THIS TIME.
[2020-07-18 20:00] VITALS: BP 107/55; PULSE 50; PULSE 52; RESP 18; TEMP 36.5; O2SAT 96
[2020-07-19] VITALS (8 sets, daily range): BP systolic 104–123; BP diastolic 55–66; PULSE 40–56; RESP 16–20; TEMP 36.1–37.1; O2SAT 94–99; BMI 34.8
--- NOTE | 2020-07-19 03:36 | PC.NURSE ---
A&OX3. 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 LUNGS NOTED WITH WHEEZING PER AUSCULTATION. WEANED TO RA THIS SHIFT, TOLERATED WELL. USED INCENTIVE SPIROMETER Q1HWA, WAS ABLE TO GET BEYOND GOAL WITH USE, REACHED 1500ML. PULSE +2, CAP REFILL < 3 SEC. ASYMPTOMATIC BRADYCARDIA NOTED THIS SHIFT. SINUS HERB PER CARDIAC MONIOTR. ABDOMEN NOTED NONDISTENDED, ACTIVE BOWEL SOUNDS, SOFT AND TENDERNESS WITH PALPATION REPORTED IN LUQ/EPIGASTRIUM. C/O PAIN IN EPIGASTRIC REGION AND IN LUQ OF ABDOMEN THIS SHIFT. ENCOURAGED MEDICATING WITH OTHER PRN PAIN MEDICATIONS BESIDES MORPHINE FOR C/O ABDOMINAL PAIN, PT'S HR NOTED LOW 37 AT TIMES BRIEFLY THEN WOULD RETURN TO 40'S, EVEN WHILE AWAKE. PT RECEIVED MORPHINE AND PHENERGAN AT BEGINNING OF SHIFT, ON REASSESSMENT PT WAS NOTED RESTING WITH EYES CLOSED. AROUND 0300 PT REPORTED NEED FOR MORPHINE, PT WAS DRINKING APPLE JUICE, PER REQUEST AND TOLERATING THIS WELL. PT WAS WATCHING TV, CALMLY AT THIS TIME. EXPLAINED TO PT YOUR HEART RATE IS NOTED IN THE 30'S AT TIMES AND I WOULD REALLY LIKE TO TRY SOMETHING ELSE FOR PAIN LIKE THE TORADOL OR GI COCKTAIL THAT'S ORDERED. PT STATED I DO NOT THINK IT IS GOING TO WORK. REASSURED PT THAT WE WILL TRY TO ADMINISTER THE TORADOL AND IF THAT DOES NOT WORK, WE WILL ATTEMPT TO TRY SOMETHING ELSE. INDEPENDENT WITH BATH AND TRANSFERS TO AND FROM BED TO BS. DRESSING ON RLE CHANGED, CLEANED WITH BETADINE, SPLINT, 4X4 GAUZE, SOFT ROLL AND ERROL BANDAGES REAPPLIED. VSS. WILL CONTINUE TO MONITOR.
--- NOTE | 2020-07-19 03:58 | PC.NURSE ---
1 MODERATE, BROWN, LOOSE STOOL & 2 SMALL, BROWN, LOOSE STOOLS NOTED THIS SHIFT.
--- NOTE | 2020-07-19 04:20 | PC.NURSE ---
PT REFUSING ALL OTHER PRN PAIN MEDICATIONS AT THIS TIME. TALKED WITH PT AND AGREES TO A PARTIAL DOSE AND TO REASSESS APPROXIMATELY A HOUR FOLLOWING ADMIN FOR ADDITIONAL MEDS AND PT'S TOLERANCE.
--- NOTE | 2020-07-19 04:25 | PC.NURSE ---
ADDITIONAL SMALL, BROWN LOOSE BM NOTED AT THIS TIME. PT HAS HAD A TOTAL OF 4 UNMEASURED URINES ALONG WITH EACH EPISODE OF STOOL. URINE IS CLEAR AND YELLOW.
[2020-07-19 06:22] LABS: Basophils % 0.2 % (0.1-2.0); Eosinophils % 0.1 % (0.1-12.0); Hematocrit 38.2 % (37.0-47.0); Lymphocytes # 1.7 K/mm3 (0.7-4.5); Lymphocytes % 13.3 % (10-50); Mean Corpuscular HGB Conc 31.3 g/dL (31.8-35.4); Mean Corpuscular Hemoglobin 31.8 pg (27.0-31.2); Mean Corpuscular Volume 101.7 fl (81-99); Mean Platelet Volume 10.5 fl (7.4-10.4); Monocytes # 0.9 K/mm3 (0.1-1.0); Neutrophils # 9.9 K/mm3 (1.8-7.8); Neutrophils % 79.3 % (37.0-80.0); Platelet Count 232 K/mm3 (142-424); Red Blood Count 3.76 M/mm3 (4.20-5.40); Red Cell Distribution Width 15.2 % (11.5-17.5); White Blood Count 12.4 K/mm3 (4.8-10.8)
--- NOTE | 2020-07-19 06:49 | HMH.ACPN2 ---
Internal Medicine - PN: Subj *Date: 07/19/20 *Time: 06:49 Interval history: Patient had no events overnight. She had 2 episodes of emesis yesterday afternoon and carbonated beverages were removed from her diet. She admits to hunger this morning. While she has had not had any nausea or vomiting she has had some watery stools. She denies flatus. She denies shortness of breath or chest pain. Exam Vital signs and Labs for Last 24 Hours: Temp Pulse Resp BP Pulse Ox 98.1 F 40 L 18 123/66 99 07/19/20 03:30 07/19/20 04:00 07/19/20 03:30 07/19/20 03:30 07/19/20 03:30 Laboratory Results - last 24 hr 07/18/20 05:35: WBC 10.7, RBC 3.76 L, Hgb 11.8 L, Hct 37.0, MCV 98.6, MCH 31.5 H, MCHC 31.9, RDW 15.1, Plt Count 199, MPV 10.1, Neut % (Auto) 77.9, Lymph % (Auto) 14.6, [place] % (Auto) 7.4, Eos % (Auto) 0.1, Baso % (Auto) 0.1, Neut # (Auto) 8.3 H, Lymph # (Auto) 1.6, [place] # (Auto) 0.8, Eos # (Auto) 0.0, Baso # (Auto) 0.0 07/18/20 05:35: Sodium 135 L, Potassium 4.0, Chloride 98, Carbon Dioxide 33 H, Anion Gap 8.0, BUN 15, Creatinine 0.80, Estimated Creat Clear 110, Estimated GFR 73, Est GFR ( Amer) 89, Glucose 98, Calcium 8.8, Total Bilirubin 0.2, AST 59 H D, ALT 45 D, Alkaline Phosphatase 66, Total Protein 5.7 L, Albumin 2.9 L, Globulin 2.8, Albumin/Globulin Ratio 1.0 L 07/19/20 04:03: WBC 12.4 H, RBC 3.76 L, Hgb 12.0 L, Hct 38.2, MCV 101.7 H, MCH 31.8 H, MCHC 31.3 L, RDW 15.2, Plt Count 232, MPV 10.5 H, Neut % (Auto) 79.3, Lymph % (Auto) 13.3, [place] % (Auto) 7.0, Eos % (Auto) 0.1, Baso % (Auto) 0.2, Neut # (Auto) 9.9 H, Lymph # (Auto) 1.7, [place] # (Auto) 0.9, Eos # (Auto) 0.0, Baso # (Auto) 0.0 I & O for Last 24 hours: Intake & Output 07/16/20 07/17/20 07/18/20 07/19/20 11:59 11:59 11:59 11:59 Intake Total 1728 / 1728 1270 / 1270 1795 / 1795 1615 / 1615 Output Total 2099 / 2099 2049 / 2049 1250 / 1450 1650 / 1650 Balance -372 / -372 -780 / -780 545 / 345 -35 / -35 Weight 207 lb 7.28 oz 203 lb 4.259 oz 202 lb 2.622 oz 203 lb 14.841 oz Microbiology Reports for the Last 24 Hours: Microbiology 07/13/20 11:30 Sputum - Expectorated Sputum Gram Stain - Final 07/13/20 11:30 Sputum - Expectorated Sputum Sputum Culture - Preliminary Narrative: Patient is in no distress. She is sleeping when I enter the room with nasal cannula off and O2 sat at 94 to 100% on room air. She awakens easily and is alert and conversant. Lungs have some light rhonchi posteriorly. Heart has a slow rate and rhythm. Abdomen is soft with less tenderness today. Bowel sounds are present. Assessment and Plan (1) Pneumonia due to COVID-19 virus Status: Acute Category: Medical Code(s): U07.1 - COVID-19; J12.89 - Other viral pneumonia (2) Infection of wound due to methicillin resistant Staphylococcus aureus (MRSA) Status: Acute Category: Medical Code(s): A49.02 - Methicillin resistant Staphylococcus aureus infection, unspecified site (3) Intestinal infection due to other organism, not elsewhere classified Status: Acute Category: Medical Code(s): A08.8 - Other specified intestinal infections (4) Hypothyroidism (acquired) Status: Acute Category: Medical Code(s): E03.9 - Hypothyroidism, unspecified (5) Mediastinal adenopathy Status: Acute Category: Medical Code(s): R59.0 - Localized enlarged lymph nodes (6) Obesity (BMI 35.0-39.9 without comorbidity) Status: Acute Category: Medical Code(s): E66.9 - Obesity, unspecified (7) Pulmonary hypertension Status: Acute Category: Medical Code(s): I27.20 - Pulmonary hypertension, unspecified (8) Diastolic dysfunction Status: Chronic Category: Medical Code(s): I51.9 - Heart disease, unspecified (9) Tobacco use disorder Status: Chronic Category: Medical Code(s): F17.200 - Nicotine dependence, unspecified, uncomplicated (10) Abdominal pain Status: Acute Category: Medical Code(s): R10.9 - Unspecified abdominal pain (11)
[2020-07-19 06:50] LABS: Chloride 101 mmol/L (98-107)
[2020-07-19 06:51] LABS: Potassium 4.8 mmoL/L (3.5-5.1); Sodium 135 mmol/L (136-145)
[2020-07-19 06:53] LABS: Blood Urea Nitrogen 13 mg/dl (7-17); Creatinine Clearance Estimated 111 mL/min (50-200); Estimated Glomerular Filt Rate 73 ml/min (>60); GFR (African American) 89 ML/MIN (>60)
[2020-07-19 06:54] LABS: Alanine Aminotransferase 35 U/L (12-78); Albumin Level 2.7 g/dl (3.5-5.0); Albumin/Globulin Ratio 1.1 (1.1-1.8); Alkaline Phosphatase 56 U/L (38-126); Anion Gap 10.8 mEq/L (5-15); Aspartate Amino Transferase 35 U/L (14-36); Bilirubin,Total 0.2 mg/dl (0.2-1.3); Calcium 8.4 mg/dl (8.4-10.2); Carbon Dioxide 28 mmol/L (22.0-30.0); Globulin 2.5 g/dL (1.3-3.2); Glucose 88 mg/dl (74-100); Total Protein,Serum 5.2 g/dl (6.3-8.2)
[2020-07-19 09:35] LABS: Vancomycin,Trough 16.8 ug/mL (5.0-10.0)
--- NOTE | 2020-07-19 09:49 | HMH.ACPN ---
Internal Medicine - PN: Subj *Date: 07/19/20 *Time: 09:49 Exam Vital signs and Labs for Last 24 Hours: Temp Pulse Resp BP Pulse Ox 97.0 F L 55 L 20 107/59 L 94 L 07/19/20 08:00 07/19/20 08:00 07/19/20 08:00 07/19/20 08:00 07/19/20 08:00 Laboratory Results - last 24 hr 07/19/20 04:03: WBC 12.4 H, RBC 3.76 L, Hgb 12.0 L, Hct 38.2, MCV 101.7 H, MCH 31.8 H, MCHC 31.3 L, RDW 15.2, Plt Count 232, MPV 10.5 H, Neut % (Auto) 79.3, Lymph % (Auto) 13.3, [place] % (Auto) 7.0, Eos % (Auto) 0.1, Baso % (Auto) 0.2, Neut # (Auto) 9.9 H, Lymph # (Auto) 1.7, [place] # (Auto) 0.9, Eos # (Auto) 0.0, Baso # (Auto) 0.0 07/19/20 04:03: Sodium 135 L, Potassium 4.8, Chloride 101, Carbon Dioxide 28, Anion Gap 10.8, BUN 13, Creatinine 0.80, Estimated Creat Clear 111, Estimated GFR 73, Est GFR ( Amer) 89, Glucose 88, Calcium 8.4, Total Bilirubin 0.2, AST 35 D, ALT 35, Alkaline Phosphatase 56, Total Protein 5.2 L, Albumin 2.7 L, Globulin 2.5, Albumin/Globulin Ratio 1.1 07/19/20 08:45: Vancomycin Trough 16.8 H I & O for Last 24 hours: Intake & Output 07/16/20 07/17/20 07/18/20 07/19/20 23:59 23:59 23:59 23:59 Intake Total 1424 / 1424 1605 / 1725 2215 / 2215 Output Total 3100 / 3650 1050 / 1800 2500 / 2900 400 / 400 Balance -1676 / -2226 555 / -75 -285 / -685 -400 / -400 Weight 94.1 kg 92.2 kg 91.7 kg 92.5 kg Microbiology Reports for the Last 24 Hours: Microbiology 07/13/20 11:30 Sputum - Expectorated Sputum Gram Stain - Final 07/13/20 11:30 Sputum - Expectorated Sputum Sputum Culture - Preliminary Assessment and Plan (1) Pneumonia due to COVID-19 virus Status: Acute Category: Medical Code(s): U07.1 - COVID-19; J12.89 - Other viral pneumonia (2) Infection of wound due to methicillin resistant Staphylococcus aureus (MRSA) Status: Acute Category: Medical Code(s): A49.02 - Methicillin resistant Staphylococcus aureus infection, unspecified site (3) Intestinal infection due to other organism, not elsewhere classified Status: Acute Category: Medical Code(s): A08.8 - Other specified intestinal infections (4) Hypothyroidism (acquired) Status: Acute Category: Medical Code(s): E03.9 - Hypothyroidism, unspecified (5) Mediastinal adenopathy Status: Acute Category: Medical Code(s): R59.0 - Localized enlarged lymph nodes (6) Obesity (BMI 35.0-39.9 without comorbidity) Status: Acute Category: Medical Code(s): E66.9 - Obesity, unspecified (7) Pulmonary hypertension Status: Acute Category: Medical Code(s): I27.20 - Pulmonary hypertension, unspecified (8) Diastolic dysfunction Status: Chronic Category: Medical Code(s): I51.9 - Heart disease, unspecified (9) Tobacco use disorder Status: Chronic Category: Medical Code(s): F17.200 - Nicotine dependence, unspecified, uncomplicated (10) Abdominal pain Status: Acute Category: Medical Code(s): R10.9 - Unspecified abdominal pain (11) Ileus Status: Acute Category: Medical Code(s): K56.7 - Ileus, unspecified (12) Bradycardia Status: Acute Category: Medical Code(s): R00.1 - Bradycardia, unspecified The patient's infection will respond to the chosen ABx?: Yes Is the patient receiving the right drug, dose, and route?: Yes Could a more targeted ABx be ordered?: No (AFEBRIL, BLOOD CULTURES -, SPUTUM IS PRELIMARY NO REPORTABLE.)
--- NOTE | 2020-07-19 10:31 | HMH.PULMPN ---
Internal Medicine - PN: Subj *Date: 07/19/20 *Time: 10:32 Interval history: No acute respiratory events overnight. Patient respiratory status significantly improved, this morning on room air saturating 98%. Patient still complaining of abdominal discomfort this morning Exam - Constitutional Constitutional:: no acute distress, comfortable, healthy appearing, cooperative - HENMT Exam HENMT: normocephalic, atraumatic, head normal to inspection, face & sinuses non-tender, oral mucosa normal, moist mucous membranes, posterior oropharanx norm - Eye Exam Eyes:: normal appearance both eyes and related structures, eyelids normal, normal conjunctiva, normal sclera - Neck Exam Neck:: normal visual inspection, thyroid normal, no lymphadenopathy - Respiratory Exam Respiratory:: able to speak in complete sentences, no respiratory distress, crackles - Cardiovascular Exam Cardiac:: S1, S2 - GI Exam GI:: no hepatosplenomegaly - Skin Exam Skin: no rash, normal elastacity, no lesions, normal turgor - Neurological Exam Neurological: alert, awake, oriented X3 - Extremities Exam Extremities: no cyanosis, no clubbing - Psychiatric Exam Psychiatric: normal affect, appearance grossly normal, affect normal, attitude normal, no homicidal ideation, no suicidal ideation Assessment and Plan (1) Pneumonia due to COVID-19 virus Status: Acute Category: Medical Code(s): U07.1 - COVID-19; J12.89 - Other viral pneumonia (2) Infection of wound due to methicillin resistant Staphylococcus aureus (MRSA) Status: Acute Category: Medical Code(s): A49.02 - Methicillin resistant Staphylococcus aureus infection, unspecified site (3) Intestinal infection due to other organism, not elsewhere classified Status: Acute Category: Medical Code(s): A08.8 - Other specified intestinal infections (4) Hypothyroidism (acquired) Status: Acute Category: Medical Code(s): E03.9 - Hypothyroidism, unspecified (5) Mediastinal adenopathy Status: Acute Category: Medical Code(s): R59.0 - Localized enlarged lymph nodes (6) Obesity (BMI 35.0-39.9 without comorbidity) Status: Acute Category: Medical Code(s): E66.9 - Obesity, unspecified (7) Pulmonary hypertension Status: Acute Category: Medical Code(s): I27.20 - Pulmonary hypertension, unspecified (8) Diastolic dysfunction Status: Chronic Category: Medical Code(s): I51.9 - Heart disease, unspecified (9) Tobacco use disorder Status: Chronic Category: Medical Code(s): F17.200 - Nicotine dependence, unspecified, uncomplicated (10) Abdominal pain Status: Acute Category: Medical Code(s): R10.9 - Unspecified abdominal pain (11) Ileus Status: Acute Category: Medical Code(s): K56.7 - Ileus, unspecified (12) Bradycardia Status: Acute Category: Medical Code(s): R00.1 - Bradycardia, unspecified - Assessment and plan all Dx Assessment and Plan for all problems:: #Acute hypoxic respiratory failure: #COVID-19 pneumonia: 59-year old female more than [id number] smoking history, MRSA pneumonia 5 years ago ankle fracture status post MRSA infection and initiated on antibiotics early June presented with worsening shortness of breath fevers cough and Covid testing resulted positive. Patient on this admission treated for community-acquired pneumonia along with remdesivir and dexamethasone for Covid pneumonia. She was initially needing 4 to 5 L nasal cannula however her respiratory significantly improved, today on room air saturating 98% and above However given the significant improvement in her breathing status in 5 days from 5 L nasal cannula to RA along with significant improvement in her groundglass opacity from initial CT chest and the repeat CT abdomen that showed lower lung kent, I do not think her acute respiratory failure entirely can be attributed to COVID-19 pneumonia. Other concerns I am signing for this patient is underlying heart failure with
--- NOTE | 2020-07-19 15:50 | PC.NURSE ---
Pt is alert and oriented and able to make needs known. RR even and unlabored. Continues to tolerate RA well. Has had approx 6 loose stools this shift. Have given prn pain med for abd cramping per mar. Have also given gi coctail. BS x 4 quads, has been sinus matt on tele. Lungs cta- diminished. CB in reach. Remains safe. Mx continues at this time.
[2020-07-20] VITALS: BP 103/49; PULSE 45; PULSE 50; RESP 16; TEMP 36.1; O2SAT 99
--- NOTE | 2020-07-20 01:08 | PC.NURSE ---
dressing to RLE changed at this time
[2020-07-20 04:00] VITALS: BP 117/58; PULSE 40; PULSE 45; RESP 17; TEMP 36.3; O2SAT 98
--- NOTE | 2020-07-20 04:43 | PC.NURSE ---
shift summary, no acute changes since prior assessment, pt has rested well t/o shift, pt has remained on room air for the entire shift with O2 sats 96-99%, pt has remained bradycardic this shift, HR has dropped as low as 38 but does return to low to mid 40's, pt is asymptomatic, pt has rang out once and asked for morphine, educated on the parameter of HR over 50 to receive morphine and pt verbalizes understanding, pt was treated with toradol per NOV, pt has had one loose bowel movement at the beginning of shift, but has not complained of nausea and has not vomited, systolic BP has been 103-117, pt has remained afebrile, has transferred to [facility] independently and gave herself a bedside bath, dressing change done on RLE
[2020-07-20 05:00] VITALS: BMI 34.5
--- NOTE | 2020-07-20 07:07 | HMH.ACPN2 ---
Internal Medicine - PN: Subj *Date: 07/20/20 *Time: 07:07 Interval history: Patient had no vomiting yesterday. She did have multiple small loose watery stools. She tolerated a full liquid diet. Patient did have some abdominal pain overnight which was medicated with Toradol due to bradycardia. She remains afebrile. She has been maintaining room air sats in the mid to high 90s. Exam Vital signs and Labs for Last 24 Hours: Temp Pulse Resp BP Pulse Ox 97.3 F L 40 L 17 117/58 L 98 07/20/20 04:00 07/20/20 04:00 07/20/20 04:00 07/20/20 04:00 07/20/20 04:00 Laboratory Results - last 24 hr 07/15/20 07:00: Stl Aeromonas (PCR) Not detected, Stl C. cayetanensis PCR Not detected, Stool Rotavirus (PCR) Not detected, Stl Adenov F 40/41 PCR Not detected, Stool Astrovirus (PCR) Not detected, Stool Campylobacter PCR Not detected, Stl C.difficile Tox PCR Not detected, Stool Cryptosporidium PCR Not detected, Stl E.coli Shiga Tox PCR Not detected, Stool E coli O157 PCR Not detected, Stl Enterotoxigenic E PCR Not detected, Stool EPEC (PCR) Not detected, Stool EAEC (PCR) Not detected, Stl E. histolytica PCR Not detected, Stool Giardia Lamblia PCR Not detected, Stool Salmonella PCR Not detected, Stool Sapovirus (PCR) Not detected, Stl P. shigelloides PCR Not detected, Stl Shigella/EIEC PCR Not detected, St Y.enterocolitica PCR Not detected, Stool Vibrio (PCR) Not detected, Stl Vibrio cholerae PCR Not detected, Stl Norovirus GI/GII PCR Not detected 07/19/20 08:45: Vancomycin Trough 16.8 H I & O for Last 24 hours: Intake & Output 07/17/20 07/18/20 07/19/20 07/20/20 11:59 11:59 11:59 11:59 Intake Total 1270 / 1270 1795 / 1795 2235 / 2235 1090 / 1090 Output Total 2049 / 2049 1250 / 1450 1650 / 1650 1050 / 1050 Balance -780 / -780 545 / 345 585 / 585 40 / 40 Weight 203 lb 4.259 oz 202 lb 2.622 oz 203 lb 14.841 oz 202 lb 6.15 oz Microbiology Reports for the Last 24 Hours: Microbiology 07/13/20 11:30 Sputum - Expectorated Sputum Gram Stain - Final 07/13/20 11:30 Sputum - Expectorated Sputum Sputum Culture - Preliminary Narrative: Patient looks comfortable and is resting in bed without use of supplemental oxygen. Lung exam reveals some scattered faint rhonchi primarily in the bases. No wheezing. Heart has a regular rate and rhythm. Abdomen is soft and nontender. Bowel sounds are present. Assessment and Plan (1) Pneumonia due to COVID-19 virus Status: Acute Category: Medical Code(s): U07.1 - COVID-19; J12.89 - Other viral pneumonia (2) Infection of wound due to methicillin resistant Staphylococcus aureus (MRSA) Status: Acute Category: Medical Code(s): A49.02 - Methicillin resistant Staphylococcus aureus infection, unspecified site (3) Intestinal infection due to other organism, not elsewhere classified Status: Acute Category: Medical Code(s): A08.8 - Other specified intestinal infections (4) Hypothyroidism (acquired) Status: Acute Category: Medical Code(s): E03.9 - Hypothyroidism, unspecified (5) Mediastinal adenopathy Status: Acute Category: Medical Code(s): R59.0 - Localized enlarged lymph nodes (6) Obesity (BMI 35.0-39.9 without comorbidity) Status: Acute Category: Medical Code(s): E66.9 - Obesity, unspecified (7) Pulmonary hypertension Status: Acute Category: Medical Code(s): I27.20 - Pulmonary hypertension, unspecified (8) Diastolic dysfunction Status: Chronic Category: Medical Code(s): I51.9 - Heart disease, unspecified (9) Tobacco use disorder Status: Chronic Category: Medical Code(s): F17.200 - Nicotine dependence, unspecified, uncomplicated (10) Abdominal pain Status: Acute Category: Medical Code(s): R10.9 - Unspecified abdominal pain (11) Ileus Status: Acute Category: Medical Code(s): K56.7 - Ileus, unspecified (12) Bradycardia Status: Acute Category: Medical Code(s): R00.1 - Bradycardia, unspecified (13
[2020-07-20 07:33] LABS: Basophils % 0.1 % (0.1-2.0); Eosinophils # 0.1 K/mm3 (0.0-0.4); Eosinophils % 0.5 % (0.1-12.0); Hematocrit 35.3 % (37.0-47.0); Hemoglobin 11.4 g/dL (12.2-16.2); Lymphocytes # 2.2 K/mm3 (0.7-4.5); Mean Corpuscular HGB Conc 32.3 g/dL (31.8-35.4); Mean Corpuscular Volume 99.1 fl (81-99); Mean Platelet Volume 10.3 fl (7.4-10.4); Monocytes # 0.7 K/mm3 (0.1-1.0); Monocytes % 6.2 % (1.7-9.3); Neutrophils # 7.6 K/mm3 (1.8-7.8); Neutrophils % 72.2 % (37.0-80.0); Platelet Count 188 K/mm3 (142-424); Red Blood Count 3.56 M/mm3 (4.20-5.40); Red Cell Distribution Width 15.3 % (11.5-17.5); White Blood Count 10.5 K/mm3 (4.8-10.8)
--- NOTE | 2020-07-20 07:38 | HMH.DCSUM ---
General - General Admission date:: 07/12/20 Discharge date: 07/21/20 HPI HPI: 59-year-old female with COPD , pulmonary hypertension, and history of ankle fracture dislocation with subsequent MRSA wound infection presented to the emergency department with 3 days of chills, malaise, suspected fevers, nausea, vomiting, diarrhea with mild shortness of breath. She had been encouraged to seek care by friends. She had no known COVID 19 exposures. Work-up in the emergency department raise suspicion for viral pneumonia and COVID 19 testing was positive. Patient was admitted due to hypoxia with O2 sats in the 80s on room air. Patient has required supplemental oxygen of 2 to 4 L/min via the nasal cannula to maintain sats in the 90s and above 94%. Nursing staff notes since admission any movement or initiating conversation will result in desaturation into the 80s despite use of supplemental oxygen. Patient's primary complaint this morning is her abdominal pain along with nausea and chest pain. Patient claims a history of COPD for which she uses albuterol 3 times daily. She denies personal history of heart problems including congestive heart failure. Patient has undergone diagnostic catheterization at this facility. Last echocardiogram revealed evidence of pulmonary artery hypertension with raised right-sided heart pressures. Regarding the patient's postoperative wound she saw infectious disease on Saturday of this week and the decision was made to have the patient receive a PICC line for long-term IV vancomycin. Hospital Course Hospital Course: Need to the special care unit with diagnosis of COVID-19 pneumonia. Patient renal function allowed for initiation of remdesivir. She completed 5 days of remdesivir she was started on dexamethasone 6 mg daily. Patient was placed on supplemental oxygen of 4 L/min via the nasal cannula to keep O2 sats at 94% or greater. Patient never required any higher flow than her 4 L/min. Patient would have brief asymptomatic desaturations into the high 80s that would usually correct with repositioning or deep breathing. Patient first repeat chest x-ray on July 15 showed improvement in groundglass opacities. Dr. Meza was consulted and appreciate his input as well as his discovery of history of prior records where patient has had similar appearance in her chest x-ray. She will require further pulmonary evaluation at discharge. By July 19 patient was weaned off of supplemental oxygen was able to maintain sats in the high 90s. Patient was kept on prophylactic dosing of Lovenox during hospitalization. Patient was kept on famotidine for GI prophylaxis. Patient was started on vitamin C, vitamin D, zinc as well. Patient has a history of irritable bowel syndrome and had been having abdominal discomfort prior to her diagnosis of COVID-19. She had had attributed her abdominal discomfort with diarrhea to use of antibiotics for a right lower leg wound infection as well as her irritable bowel syndrome. Patient underwent C. difficile testing which was negative. She was started on a probiotic. She was initially admitted on IV Levaquin and vancomycin. IV Levaquin was transitioned to oral Levaquin. Patient continued to complain of intermittent episodes of abdominal pain sometimes with associated vomiting and/or diarrhea. When symptoms did not seem to be improving patient had a repeat CT scan of the abdomen and pelvis on July 18 which showed findings of enteritis and possible ileus versus partial small bowel obstruction. Patient continued to have small loose watery stools. On July 19 patient was placed on IV Reglan with discontinuation of her promethazine. This seemed to help with patient's vomiting as she was able to tolerate a full liquid diet without emesis. She continued to have loose stools. Loose stools are likely multifactorial from her COVID-19 enteritis, irritable bowel syndrome, oral antibiotic use. Probiotic w
[2020-07-20 07:58] LABS: Alanine Aminotransferase 24 U/L (12-78); Albumin Level 2.5 g/dl (3.5-5.0); Alkaline Phosphatase 48 U/L (38-126); Anion Gap 7.3 mEq/L (5-15); Aspartate Amino Transferase 28 U/L (14-36); Bilirubin,Total 0.2 mg/dl (0.2-1.3); Blood Urea Nitrogen 12 mg/dl (7-17); Carbon Dioxide 25 mmol/L (22.0-30.0); Chloride 106 mmol/L (98-107); Creatinine Clearance Estimated 125 mL/min (50-200); Estimated Glomerular Filt Rate 86 ml/min (>60); GFR (African American) 104 ML/MIN (>60); Globulin 2.6 g/dL (1.3-3.2); Glucose 72 mg/dl (74-100); Potassium 4.3 mmoL/L (3.5-5.1); Sodium 134 mmol/L (136-145); Total Protein,Serum 5.1 g/dl (6.3-8.2)
[2020-07-20 08:00] VITALS: BP 109/56; PULSE 58; PULSE 60; RESP 16; TEMP 36.6; O2SAT 96; O2SAT 97
--- NOTE | 2020-07-20 09:30 | HMH.PHACONS ---
- Pharmacy Consult Date: 07/20/20 Time: 09:30 Referring provider: JAIMEE Reason for Consult:: VANCOMYCIN THERAPY Allergies and ADEs:: Allergies Allergy/AdvReac Type Severity Reaction Status Date / Time Cephalosporins Allergy RASH Verified 07/12/20 16:56 erythromycin base Allergy Hives Verified 07/12/20 16:56 minocycline Allergy RASH Verified 07/12/20 16:56 penicillin G Allergy Hives Verified 07/12/20 16:56 Sulfa (Sulfonamide Allergy RASH Verified 07/12/20 16:56 Antibiotics) Home Medications:: Home Medications Medication Instructions Recorded Confirmed Type Tizanidine HCl [Zanaflex 4mg 4 mg PO BID PRN 07/30/19 07/12/20 History tab] Potassium Chloride [Micro-K 10mEq 20 meq PO BID #60 capsule.er 07/31/19 07/12/20 Rx cap] Furosemide [Furosemide 40MG tAB*] 40 mg PO NEEDED PRN 08/31/19 07/12/20 History levothyroxine 75 mcg tablet 75 mcg PO DAILY #90 tab 10/30/19 07/12/20 Rx diclofenac sodium 1 % topical gel 4 g TOPICAL QID PRN 30 Days #100 g 03/14/20 07/12/20 Rx albuterol sulfate 90 mcg/actuation 2 inh INHALATION TID PRN #18 g 05/03/20 07/12/20 Rx aerosol inhaler oxycodone-acetaminophen 5 mg-325 1 tab PO Q8H PRN 7 Days #21 tab 07/07/20 07/13/20 Rx mg tablet Fluconazole [Diflucan 100mg tablet] 100 mg PO DAILY 07/12/20 07/12/20 History Gabapentin 600 mg PO TID 07/12/20 07/12/20 History Linezolid 600 mg PO Q12H 07/12/20 07/12/20 History levoFLOXacin [Levofloxacin 750MG 750 mg PO DAILY 07/12/20 07/12/20 History Tablet*] Omeprazole 40 mg PO DAILY 07/13/20 07/12/20 History Trazodone HCl 100 mg PO HS 07/13/20 07/13/20 History Height: 1.63 m Weight: 91.8 kg Laboratory Results:: Laboratory Results - last 24 hr 07/15/20 07:00: Stl Aeromonas (PCR) Not detected, Stl C. cayetanensis PCR Not detected, Stool Rotavirus (PCR) Not detected, Stl Adenov F 40/41 PCR Not detected, Stool Astrovirus (PCR) Not detected, Stool Campylobacter PCR Not detected, Stl C.difficile Tox PCR Not detected, Stool Cryptosporidium PCR Not detected, Stl E.coli Shiga Tox PCR Not detected, Stool E coli O157 PCR Not detected, Stl Enterotoxigenic E PCR Not detected, Stool EPEC (PCR) Not detected, Stool EAEC (PCR) Not detected, Stl E. histolytica PCR Not detected, Stool Giardia Lamblia PCR Not detected, Stool Salmonella PCR Not detected, Stool Sapovirus (PCR) Not detected, Stl P. shigelloides PCR Not detected, Stl Shigella/EIEC PCR Not detected, St Y.enterocolitica PCR Not detected, Stool Vibrio (PCR) Not detected, Stl Vibrio cholerae PCR Not detected, Stl Norovirus GI/GII PCR Not detected 07/19/20 08:45: Vancomycin Trough 16.8 H 07/20/20 05:15: WBC 10.5, RBC 3.56 L, Hgb 11.4 L, Hct 35.3 L, MCV 99.1 H, MCH 32.0 H, MCHC 32.3, RDW 15.3, Plt Count 188, MPV 10.3, Neut % (Auto) 72.2, Lymph % (Auto) 21.0, [place] % (Auto) 6.2, Eos % (Auto) 0.5, Baso % (Auto) 0.1, Neut # (Auto) 7.6, Lymph # (Auto) 2.2, [place] # (Auto) 0.7, Eos # (Auto) 0.1, Baso # (Auto) 0.0 07/20/20 05:15: Sodium 134 L, Potassium 4.3, Chloride 106, Carbon Dioxide 25, Anion Gap 7.3, BUN 12, Creatinine 0.70, Estimated Creat Clear 125, Estimated GFR 86, Est GFR ( Amer) 104, Glucose 72 L, Calcium 8.0 L, Total Bilirubin 0.2, AST 28, ALT 24 D, Alkaline Phosphatase 48, Total Protein 5.1 L, Albumin 2.5 L, Globulin 2.6, Albumin/Globulin Ratio 1.0 L Medical History: Reports:: Anxiety, Atherosclerotic Heart Disease, Congestive Heart Failure, Chronic Obstructive Pulmonary Disease (COPD), Coronary Artery Disease, Depression, Gall Bladder Disease, Gastroesophageal Reflux Disease(GERD), Hypertension, Lung Disease, Migraine, MRSA Denies:: Cancer, Diabetes Mellitus Type 1, Diabetes Mellitus Type 2, Internal Pacemaker, Seizures Assessment and Plan (1) Pneumonia due to COVID-19 virus Status: Acute Category: Medical Code(s): U07.1 - COVID-19; J12.89 - Other viral pneumonia (2) Infection of wound due to methicillin resistant Staphylococcus aureus (MRSA) Status: Acute Category: Medical C
--- NOTE | 2020-07-20 09:38 | HMH.PULMPN ---
Internal Medicine - PN: Subj *Date: 07/20/20 *Time: 09:38 Interval history: No acute respiratory events overnight. Patient remained on room air since yesterday. States her abdominal symptoms improved Exam - Constitutional Constitutional:: no acute distress, comfortable, healthy appearing, cooperative - HENMT Exam HENMT: normocephalic, atraumatic, head normal to inspection, face & sinuses non-tender, oral mucosa normal, moist mucous membranes, posterior oropharanx norm - Eye Exam Eyes:: normal appearance both eyes and related structures, eyelids normal, normal conjunctiva, normal sclera - Neck Exam Neck:: normal visual inspection, thyroid normal, no lymphadenopathy - Respiratory Exam Respiratory:: able to speak in complete sentences, normal respiratory effort, crackles - Cardiovascular Exam Cardiac:: regular rhythm, S1, S2 - GI Exam GI:: soft, no hepatosplenomegaly, normal to inspection, no tenderness - Skin Exam Skin: no rash, normal elastacity, no lesions, normal turgor - Neurological Exam Neurological: alert, awake, oriented X3 - Extremities Exam Extremities: no cyanosis, no clubbing, no edema - Psychiatric Exam Psychiatric: normal affect, appearance grossly normal, affect normal, attitude normal, no homicidal ideation, no suicidal ideation Assessment and Plan (1) Pneumonia due to COVID-19 virus Status: Acute Category: Medical Code(s): U07.1 - COVID-19; J12.89 - Other viral pneumonia (2) Infection of wound due to methicillin resistant Staphylococcus aureus (MRSA) Status: Acute Category: Medical Code(s): A49.02 - Methicillin resistant Staphylococcus aureus infection, unspecified site (3) Intestinal infection due to other organism, not elsewhere classified Status: Acute Category: Medical Code(s): A08.8 - Other specified intestinal infections (4) Hypothyroidism (acquired) Status: Chronic Category: Medical Code(s): E03.9 - Hypothyroidism, unspecified (5) Mediastinal adenopathy Status: Acute Category: Medical Code(s): R59.0 - Localized enlarged lymph nodes (6) Obesity (BMI 35.0-39.9 without comorbidity) Status: Acute Category: Medical Code(s): E66.9 - Obesity, unspecified (7) Pulmonary hypertension Status: Chronic Category: Medical Code(s): I27.20 - Pulmonary hypertension, unspecified (8) Diastolic dysfunction Status: Chronic Category: Medical Code(s): I51.9 - Heart disease, unspecified (9) Tobacco use disorder Status: Chronic Category: Medical Code(s): F17.200 - Nicotine dependence, unspecified, uncomplicated (10) Abdominal pain Status: Acute Category: Medical Code(s): R10.9 - Unspecified abdominal pain (11) Ileus Status: Acute Category: Medical Code(s): K56.7 - Ileus, unspecified (12) Bradycardia Status: Acute Category: Medical Code(s): R00.1 - Bradycardia, unspecified (13) Irritable bowel syndrome Status: Chronic Category: Medical Code(s): K58.9 - Irritable bowel syndrome without diarrhea (14) Infection due to Enterobacter cloacae Status: Acute Category: Medical Code(s): A49.8 - Other bacterial infections of unspecified site - Assessment and plan all Dx Assessment and Plan for all problems:: #Acute hypoxic respiratory failure: #COVID-19 pneumonia: 59-year old female more than [id number]-[id number] smoking history, MRSA pneumonia 5 years ago ankle fracture status post MRSA infection and initiated on antibiotics early June presented with worsening shortness of breath fevers cough and Covid testing resulted positive. Patient on this admission treated for community-acquired pneumonia along with remdesivir and dexamethasone for Covid pneumonia. She was initially needing 4 to 5 L nasal cannula however her respiratory significantly improved, today on room air saturating 97% and above However given the significant improvement in her breathing status in 5 days from 5 L nasal cannula to RA along with significant impr
--- NOTE | 2020-07-20 09:40 | XR_ITS ---
PROCEDURE: XR CHEST PORTABLE CLINICAL HISTORY: Pneumonia Shortness of air COMPARISON: CT CT CHEST WO CON from 07/12/2020 CR XR CHEST PORTABLE PICC PLAC from 07/13/2020 CR XR CHEST PORTABLE PICC PLAC from 07/13/2020 CR XR CHEST PORTABLE from 07/15/2020 FINDINGS: Borderline cardiomegaly without failure. The lungs are clear without infiltrates, suspicious nodules, or pleural effusions. No acute bony abnormalities. IMPRESSION: No change with no acute finding Dictated by: Paresh Li MD 07/20/2020 11:30 Paresh Li MD in [facility] 07/20/2020 11:30
[2020-07-20 10:14] LABS: C-Reactive Protein 3.8 mg/L (0-4)
[2020-07-20 12:00] VITALS: BP 99/46; PULSE 50; RESP 18; TEMP 36.7; O2SAT 97
--- NOTE | 2020-07-20 15:22 | PC.NURSE ---
No acute changes noted this shift, pt has rested comfortably in bed, has been up to bsc independently, voids without difficulty, has tolerated diet well this shift, has had one loose bm, has not complained of nausea and has had no vomiting this shift, abd soft and mildly tender, active bowel sounds in all quads, remains on RA, lung sounds reveal scattered rhonchi in bl bases, denies any SOA or chest pain, has been medicated for pain x2 this shift, HR has been 55-60 SR per telemetry, no s/s of distress noted, vss, will continue to monitor for changes.
[2020-07-20 16:00] VITALS: BP 96/53; PULSE 58; PULSE 60; RESP 18; TEMP 37.1; O2SAT 98
[2020-07-20 20:00] VITALS: BP 119/88; PULSE 50; PULSE 54; RESP 16; TEMP 36.8; O2SAT 95
[2020-07-21] VITALS: BP 117/55; PULSE 50; PULSE 54; RESP 16; TEMP 36.4; O2SAT 95
[2020-07-21 04:00] VITALS: BP 124/61; PULSE 50; PULSE 51; RESP 16; TEMP 36.4; O2SAT 100
[2020-07-21 05:00] VITALS: BMI 34.4
--- NOTE | 2020-07-21 05:09 | PC.NURSE ---
shift summary, pt has requested morphine every six hours within two minutes of it being due, pt received morphine at 2102, pt rang out at 0300 requesting morphine, HR has consistently been in 40's with brief episodes of it going up to the 50's lasting less than 2 minutes before dropping back down to the 40's, pt again requested morphine at 0500, pt continues to consistently remain in the 40's, respirations have been 16/min, systolic pressures have been 117-124, O2 sats 95-100%, inspiratory wheezes heard on auscultation, pt has no complaints of SOA, chest pain, dizziness, lightheadedness, visual disturbances t/o entire shift, pt has had small loose bowel movement tonight
--- NOTE | 2020-07-21 06:52 | HMH.ACPN2 ---
Internal Medicine - PN: Subj *Date: 07/21/20 *Time: 06:52 Interval history: No new events over the last 24 hours. Patient denies shortness of breath. She tolerated a low-fat diet without nausea or vomiting. She does admit to some dyspepsia as well as some diarrhea. Patient also tells me that apparently she has been accepted at the nursing facility to continue to rehabilitate after her COVID-19 pneumonia. Exam Vital signs and Labs for Last 24 Hours: Temp Pulse Resp BP Pulse Ox 97.6 F 51 L 16 124/61 100 07/21/20 04:00 07/21/20 04:00 07/21/20 04:00 07/21/20 04:00 07/21/20 04:00 Laboratory Results - last 24 hr 07/20/20 05:15: WBC 10.5, RBC 3.56 L, Hgb 11.4 L, Hct 35.3 L, MCV 99.1 H, MCH 32.0 H, MCHC 32.3, RDW 15.3, Plt Count 188, MPV 10.3, Neut % (Auto) 72.2, Lymph % (Auto) 21.0, [place] % (Auto) 6.2, Eos % (Auto) 0.5, Baso % (Auto) 0.1, Neut # (Auto) 7.6, Lymph # (Auto) 2.2, [place] # (Auto) 0.7, Eos # (Auto) 0.1, Baso # (Auto) 0.0 07/20/20 05:15: Sodium 134 L, Potassium 4.3, Chloride 106, Carbon Dioxide 25, Anion Gap 7.3, BUN 12, Creatinine 0.70, Estimated Creat Clear 125, Estimated GFR 86, Est GFR ( Amer) 104, Glucose 72 L, Calcium 8.0 L, Total Bilirubin 0.2, AST 28, ALT 24 D, Alkaline Phosphatase 48, Total Protein 5.1 L, Albumin 2.5 L, Globulin 2.6, Albumin/Globulin Ratio 1.0 L 07/20/20 05:18: C-Reactive Protein 3.8 D I & O for Last 24 hours: Intake & Output 07/18/20 07/19/20 07/20/20 07/21/20 11:59 11:59 11:59 11:59 Intake Total 1795 / 1795 2235 / 2235 1090 / 1090 1410 / 1410 Output Total 1250 / 1450 1650 / 1650 1050 / 1050 2750 / 2750 Balance 545 / 345 585 / 585 40 / 40 -1340 / -1340 Weight 202 lb 2.622 oz 203 lb 14.841 oz 202 lb 6.15 oz 201 lb 11.567 oz Microbiology Reports for the Last 24 Hours: Microbiology 07/13/20 11:30 Sputum - Expectorated Sputum Gram Stain - Final 07/13/20 11:30 Sputum - Expectorated Sputum Sputum Culture - Final Normal Respiratory Chloé Narrative: Patient looks well. Lung exam reveals faint basilar rhonchi. Heart has a regular rate and rhythm. Abdomen is soft and nontender with active bowel sounds. Lower extremities have no edema. Surgical incision on the right lateral ankle is healing well. Steri-Strips are in place. Assessment and Plan (1) Pneumonia due to COVID-19 virus Status: Acute Category: Medical Code(s): U07.1 - COVID-19; J12.89 - Other viral pneumonia (2) Infection of wound due to methicillin resistant Staphylococcus aureus (MRSA) Status: Acute Category: Medical Code(s): A49.02 - Methicillin resistant Staphylococcus aureus infection, unspecified site (3) Intestinal infection due to other organism, not elsewhere classified Status: Acute Category: Medical Code(s): A08.8 - Other specified intestinal infections (4) Hypothyroidism (acquired) Status: Chronic Category: Medical Code(s): E03.9 - Hypothyroidism, unspecified (5) Mediastinal adenopathy Status: Acute Category: Medical Code(s): R59.0 - Localized enlarged lymph nodes (6) Obesity (BMI 35.0-39.9 without comorbidity) Status: Acute Category: Medical Code(s): E66.9 - Obesity, unspecified (7) Pulmonary hypertension Status: Chronic Category: Medical Code(s): I27.20 - Pulmonary hypertension, unspecified (8) Diastolic dysfunction Status: Chronic Category: Medical Code(s): I51.9 - Heart disease, unspecified (9) Tobacco use disorder Status: Chronic Category: Medical Code(s): F17.200 - Nicotine dependence, unspecified, uncomplicated (10) Abdominal pain Status: Acute Category: Medical Code(s): R10.9 - Unspecified abdominal pain (11) Ileus Status: Acute Category: Medical Code(s): K56.7 - Ileus, unspecified (12) Bradycardia Status: Acute Category: Medical Code(s): R00.1 - Bradycardia, unspecified (13) Irritable bowel syndrome Status: Chronic Category: Medical Code(s): K
[2020-07-21 08:00] VITALS: BP 106/57; PULSE 58; PULSE 60; RESP 20; TEMP 36.9; O2SAT 99
[2020-07-21 08:30] VITALS: PULSE 58; O2SAT 99
--- NOTE | 2020-07-21 10:07 | PC.NURSE ---
Called [facility] to let them know pt is being discharged and she has a script that needs to be filled. They said they would be up shortly to get it.
--- NOTE | 2020-07-21 10:39 | PC.NURSE ---
Addendum entered by Vernell Castro RN 07/21/20 10:42: Called report to Becca HUBER. Original Note: Called report to [place].
--- NOTE | 2020-07-21 10:43 | PC.NURSE ---
CALLED PHARMACY TO BRING SCRIPT BACK TO US FOR PT TO TAKE WITH HER TO [facility]. [facility] STATED THEY NEED THE HARD COPY.
--- NOTE | 2020-07-21 10:44 | PC.NURSE ---
FAMILY IS IN PARKING LOT NOW DROPPING OFF CLOTHES FOR PT. WILL LET MERYL KNOW PT IS READY FOR TRANSFER.
--- NOTE | 2020-07-21 11:31 | PC.NURSE ---
Called [facility] to transport pt.
--- NOTE | 2020-07-21 12:00 | PC.NURSE ---
A&OX4. PT HAS TOLERATED ROOM AIR WELL THROUGHOUT SHIFT. RESPIRATIONS REGULAR AND UNLABORED. LUNG SOUNDS BILATERALLY CLEAR. NO COUGH NOTED. NO EDEMA NOTED. HAND ADVERTISING LAYOUT WORKER EQUAL. +2 PULSES NOTED THROUGHOUT. ACTIVE BOWEL SOUNDS HEARD IN ALL QUADRANTS. SOFT AND TENDER ABDOMEN NOTED. NO BM THIS SHIFT. PT VOIDS INDEPENDENTLY PER BSC. CLEAR YELLOW URINE NOTED. PICC NOTED TO R UPPER ARM. LEFT IN PER DR BURGER ON DISCHARGE. REPORT WAS CALLED TO IVONNE AT [facility]. THEY WERE NOTIFIED OF INCISION TO R LEG. EXPLAINED WHAT DR MAN WOULD LIKE TO BE DONE WITH IT FAR WOUND CARE. DRESSING CHANGE WAS COMPLETED BEFORE DISCHARGE. CLEANED W BETADINE, COVERED W 4X4S, SOFT ROLL, SPLINT, AND ERROL WRAP. ALL INFO FAXED TO [facility] OR SENT VIA EMS. PRESCRIPTION SENT WITH PT. [facility] AWARE. FOLLOW UP APPOINTMENT SCHEDULED W DR. MAN. PT NOTIFIED OF APPOINTMENT. ALL DISCHARGE INSTRUCTIONS SENT WITH PT. PT TRANSPORTED TO [facility] VIA [facility]. CURRENTLY AWAITING ARRIVAL. PT REPORTED PAIN ONCE AND RECEIVED MORPHINE 4MG ONCE. ON REASSESSMENT, PT STATED PAIN WAS TOLERABLE. FAMILY BROUGHT PT SOME CLOTHES. THEY BROUGHT THEM TO THE ER ENTRANCE FOR WHEN [facility] PICKS PT UP. ER STAFF AWARE. PT CURRENTLY LYING IN BED RESTING. CALL LIGHT WITHIN REACH. BED IN LOWEST POSITION. VSS. WILL CONTINUE TO MONITOR.
--- NOTE | 2020-07-21 12:24 | HMH.PULMPN ---
Internal Medicine - PN: Subj *Date: 07/21/20 *Time: 12:24 Interval history: No acute respiratory event overnight. Patient remains on room air saturating 98% and above Exam - Constitutional Constitutional:: no acute distress, comfortable, healthy appearing, cooperative - HENMT Exam HENMT: normocephalic, atraumatic, head normal to inspection, face & sinuses non-tender, oral mucosa normal, moist mucous membranes, posterior oropharanx norm - Eye Exam Eyes:: normal appearance both eyes and related structures, eyelids normal, normal conjunctiva, normal sclera - Neck Exam Neck:: normal visual inspection, thyroid normal, no lymphadenopathy - Respiratory Exam Respiratory:: able to speak in complete sentences, normal breath sounds, normal respiratory effort - Cardiovascular Exam Cardiac:: regular rhythm, S1, S2 - GI Exam GI:: soft, no hepatosplenomegaly, normal to inspection, normoactive bowel sounds, no tenderness - Skin Exam Skin: no rash, normal elastacity, no lesions, normal turgor - Neurological Exam Neurological: alert, awake, oriented X3 - Extremities Exam Extremities: no cyanosis, no clubbing - Psychiatric Exam Psychiatric: normal affect, appearance grossly normal, affect normal, attitude normal, no homicidal ideation, no suicidal ideation Assessment and Plan (1) Pneumonia due to COVID-19 virus Status: Acute Category: Medical Code(s): U07.1 - COVID-19; J12.89 - Other viral pneumonia (2) Infection of wound due to methicillin resistant Staphylococcus aureus (MRSA) Status: Acute Category: Medical Code(s): A49.02 - Methicillin resistant Staphylococcus aureus infection, unspecified site (3) Intestinal infection due to other organism, not elsewhere classified Status: Acute Category: Medical Code(s): A08.8 - Other specified intestinal infections (4) Hypothyroidism (acquired) Status: Chronic Category: Medical Code(s): E03.9 - Hypothyroidism, unspecified (5) Mediastinal adenopathy Status: Acute Category: Medical Code(s): R59.0 - Localized enlarged lymph nodes (6) Obesity (BMI 35.0-39.9 without comorbidity) Status: Acute Category: Medical Code(s): E66.9 - Obesity, unspecified (7) Pulmonary hypertension Status: Chronic Category: Medical Code(s): I27.20 - Pulmonary hypertension, unspecified (8) Diastolic dysfunction Status: Chronic Category: Medical Code(s): I51.9 - Heart disease, unspecified (9) Tobacco use disorder Status: Chronic Category: Medical Code(s): F17.200 - Nicotine dependence, unspecified, uncomplicated (10) Abdominal pain Status: Acute Category: Medical Code(s): R10.9 - Unspecified abdominal pain (11) Ileus Status: Acute Category: Medical Code(s): K56.7 - Ileus, unspecified (12) Bradycardia Status: Acute Category: Medical Code(s): R00.1 - Bradycardia, unspecified (13) Irritable bowel syndrome Status: Chronic Category: Medical Code(s): K58.9 - Irritable bowel syndrome without diarrhea (14) Infection due to Enterobacter cloacae Status: Acute Category: Medical Code(s): A49.8 - Other bacterial infections of unspecified site - Assessment and plan all Dx Assessment and Plan for all problems:: #Acute hypoxic respiratory failure: #COVID-19 pneumonia: 59-year old female more than [id number]-peff smoking history, MRSA pneumonia 5 years ago ankle fracture status post MRSA infection and initiated on antibiotics early June presented with worsening shortness of breath fevers cough and Covid testing resulted positive. Patient on this admission treated for community-acquired pneumonia along with remdesivir and dexamethasone for Covid pneumonia. She was initially needing 4 to 5 L nasal cannula however her respiratory significantly improved, today on room air saturating 97% and above However given the significant improvement in her breathing status in 5 days from 5 L nasal cannula to RA along with significant improveme
== END 2020-07-21 12:10 | DRG 177 ==
LOC: ER 21:27 → 2ND 21:44 → ICU 07-13 10:58
PROVIDERS: Internal Medicine Pulmonary Disease; Admitting Provider Family Medicine; Emergency Provider Emergency Medicine; PCP Family Medicine; Visit Provider Family Medicine
DX: U07.1 COVID-19 (principal); J12.89 Other viral pneumonia; I50.32 Chronic diastolic (congestive) heart failure; J44.9 Chronic obstructive pulmonary disease, unspecified; E03.9 Hypothyroidism, unspecified; I11.0 Hypertensive heart disease with heart failure; I25.10 Atherosclerotic heart disease of native coronary artery without angina pectoris; K58.9 Irritable bowel syndrome, unspecified; I27.20 Pulmonary hypertension, unspecified; T84.196D Other mechanical complication of internal fixation device of bone of right lower leg, subsequent encounter; S82.851G Displaced trimalleolar fracture of right lower leg, subsequent encounter for closed fracture with delayed healing; T81.32XD Disruption of internal operation (surgical) wound, not elsewhere classified, subsequent encounter; A49.02 Methicillin resistant Staphylococcus aureus infection, unspecified site; Z79.2 Long term (current) use of antibiotics
CPT/HCPCS: 36569; 71045; 71046; 71250; 74176; 74177; 80048; 80053; 80076; 80202; 81001; 83605; 84484; 85007; 85025; 85378; 85651; 86140; 86328; 87040; 87070; 87205; 87507; 93005; 94640; 94761; 96365; 96375; 97110; 97162; 97166; 99284; C1751; J1956; J2405; J3370; Q9967; U0003

== ENCOUNTER → 2020-08-08 13:50 | Outpatient (CLI) | payer MEDICAID, SELFPAY ==
--- NOTE | 2020-08-08 13:57 | XR_ITS ---
PROCEDURE: XR ANKLE RT MIN 3V CLINICAL INDICATION: s/p right ankle hardware removal COMPARISON: CR XR ANKLE RT MIN 3V from 06/24/2020 CR XR ANKLE RT MIN 3V from 07/01/2020 CR XR ANKLE RT MIN 3V from 07/07/2020 DX 1-ANKLE 3V-RT from 07/27/2020 FINDINGS: Follow-up hardware removal. Two screws remain in place along the medial malleolus. Multiple lucencies noted in the distal aspect of the fibula from prior hardware removal. Ankle mortise is preserved. There is lucency noted at the tip of the fibula may be due to osteopenia. IMPRESSION: No change with no acute finding Dictated by: Paresh Li MD 08/08/2020 14:30 Paresh Li MD in [facility] 08/08/2020 14:30
== END ==
PROVIDERS: PCP Family Medicine; Visit Provider Orthopaedic Surgery
DX: S82.853A Displaced trimalleolar fracture of unspecified lower leg, initial encounter for closed fracture (principal); T81.49XA Infection following a procedure, other surgical site, initial encounter; T84.498A Other mechanical complication of other internal orthopedic devices, implants and grafts, initial encounter
CPT/HCPCS: 73610

== ENCOUNTER → 2020-09-05 11:00 | Outpatient (CLI) | payer MEDICAID, SELFPAY ==
--- NOTE | 2020-09-05 11:07 | XR_ITS ---
PROCEDURE: XR ANKLE RT MIN 3V CLINICAL INDICATION: s/p hardware removal Follow-up hardware removal COMPARISON: CR XR ANKLE RT MIN 3V from 07/01/2020 CR XR ANKLE RT MIN 3V from 07/07/2020 DX 1-ANKLE 3V-RT from 07/27/2020 CR XR ANKLE RT MIN 3V from 08/08/2020 FINDINGS: Postsurgical changes are present with multiple lucencies in the distal fibula from prior hardware removal. Two screws remain in place in the medial malleolar region there is some slight increased density along the distal fibula distally and could be related to some periosteal reaction from the previous surgery. IMPRESSION: Good alignment status post hardware removal no change Dictated by: Paresh Li MD 09/05/2020 14:46 Paresh Li MD in [facility] 09/05/2020 14:46
== END ==
PROVIDERS: PCP Family Medicine; Visit Provider Orthopaedic Surgery
DX: M25.571 Pain in right ankle and joints of right foot (principal)
CPT/HCPCS: 73610

== ENCOUNTER → 2020-09-12 15:01 | Outpatient (CLI) | payer MEDICAID, SELFPAY ==
[2020-09-12 15:21] LABS: Basophils % 0.4 % (0.1-2.0); Eosinophils # 0.1 K/mm3 (0.0-0.4); Eosinophils % 2.2 % (0.1-12.0); Hematocrit 39.2 % (37.0-47.0); Hemoglobin 12.2 g/dL (12.2-16.2); Lymphocytes # 1.5 K/mm3 (0.7-4.5); Lymphocytes % 24.2 % (10-50); Mean Corpuscular HGB Conc 31.2 g/dL (31.8-35.4); Mean Corpuscular Hemoglobin 31.4 pg (27.0-31.2); Mean Corpuscular Volume 100.8 fl (81-99); Mean Platelet Volume 7.8 fl (7.4-10.4); Monocytes # 0.3 K/mm3 (0.1-1.0); Monocytes % 5.1 % (1.7-9.3); Neutrophils # 4.3 K/mm3 (1.8-7.8); Neutrophils % 68.1 % (37.0-80.0); Platelet Count 434 K/mm3 (142-424); Red Blood Count 3.89 M/mm3 (4.20-5.40); Red Cell Distribution Width 14.5 % (11.5-17.5); White Blood Count 6.3 K/mm3 (4.8-10.8)
[2020-09-12 16:00] LABS: Iron 32 ug/dL (37-170)
[2020-09-12 16:11] LABS: Total Iron Binding Capacity 300 ug/dL (265-497)
[2020-09-12 16:36] LABS: Ferritin 186 ng/ml (11.1-264)
[2020-09-14 11:36] LABS: Immunoglobulin M, Qn 460 mg/dL (26-217)
== END ==
PROVIDERS: Visit Provider Internal Medicine Medical Oncology
DX: E61.1 Iron deficiency (principal)
CPT/HCPCS: 36415; 82728; 82784; 83540; 83550; 85025; 86328

== ENCOUNTER 2020-09-17 21:53 | Emergency (ER) | payer MEDICAID, SELFPAY ==
--- NOTE | 2020-09-17 22:30 | PC.NURSE ---
IV initiation unsuccessful x 2 by this nurse.
[2020-09-17 22:39] VITALS: BP 129/57; PULSE 93; RESP 18; TEMP 37.3; O2SAT 91; BMI 35.5
[2020-09-17 22:47] VITALS: BP 129/57; PULSE 93; RESP 18; TEMP 37.3; O2SAT 90; BMI 35.5
--- NOTE | 2020-09-17 22:56 | HMH.EDDIZZ ---
ED Disposition Clinical Impression: Dizziness, Acute dyspnea, Elevated erythrocyte sedimentation rate, Elevated brain natriuretic peptide (BNP) level, Elevated C-reactive protein (CRP) Disposition: Home, Self-Care Condition on Discharge: Fair Referrals: Jason Khan MD [Primary Care Provider] - - Critical Care Critical Care Time: No Attestation: On 09/17/20, the high probability of a clinically significant, sudden or life threatening deterioration of the following system(s) required my full and direct attention, intervention and personal management. The time I documented below is in addition to time spent performing reported procedures but includes the following listed in this critical care notation. Medical Decision Making - Medical Records Medical records reviewed: Yes: I reviewed the patient's medical records. - Adolph Inquiry Pt receiving controlled substance: No Vital Signs: 09/17/20 22:39 09/17/20 22:47 09/17/20 23:29 Temperature 99.1 F 99.1 F Temperature Source Oral Oral Pulse Rate [Orthostatic Lying Left Radial] 78 Pulse Rate [Orthostatic Sitting Right Brachial] 80 Pulse Rate [Orthostatic Standing Left Brachial] 72 Pulse Rate [Right Brachial] 93 H 93 H Respiratory Rate 18 18 Blood Pressure [Orthostatic Lying Right Arm] 141/62 H Blood Pressure [Orthostatic Sitting Right Arm] 129/60 Blood Pressure [Orthostatic Standing Right Arm] 132/63 Blood Pressure [Right Arm] 129/57 L 129/57 L Blood Pressure Mean [Right Arm] 81 81 Blood Pressure Source [Right Arm] Automatic Cuff Automatic Cuff Blood Pressure Position [Right Arm] Sitting Sitting 02 Sat by Pulse Oximetry 91 L 90 L Oxygen Delivery Method Room Air Room Air 09/18/20 00:02 09/18/20 00:50 09/18/20 01:30 Temperature Temperature Source Pulse Rate [Orthostatic Lying Left Radial] Pulse Rate [Orthostatic Sitting Right Brachial] Pulse Rate [Orthostatic Standing Left Brachial] Pulse Rate [Right Brachial] 81 78 86 Respiratory Rate 18 19 18 Blood Pressure [Orthostatic Lying Right Arm] Blood Pressure [Orthostatic Sitting Right Arm] Blood Pressure [Orthostatic Standing Right Arm] Blood Pressure [Right Arm] 132/63 105/43 L 100/67 L Blood Pressure Mean [Right Arm] 86 63 78 Blood Pressure Source [Right Arm] Automatic Cuff Automatic Cuff Automatic Cuff Blood Pressure Position [Right Arm] Sitting Sitting Sitting 02 Sat by Pulse Oximetry 90 L 91 L 89 L Oxygen Delivery Method Room Air Room Air Room Air 09/18/20 02:00 Temperature Temperature Source Pulse Rate [Orthostatic Lying Left Radial] Pulse Rate [Orthostatic Sitting Right Brachial] Pulse Rate [Orthostatic Standing Left Brachial] Pulse Rate [Right Brachial] 79 Respiratory Rate 17 Blood Pressure [Orthostatic Lying Right Arm] Blood Pressure [Orthostatic Sitting Right Arm] Blood Pressure [Orthostatic Standing Right Arm] Blood Pressure [Right Arm] 103/46 L Blood Pressure Mean [Right Arm] 65 Blood Pressure Source [Right Arm] Automatic Cuff Blood Pressure Position [Right Arm] Sitting 02 Sat by Pulse Oximetry 90 L Oxygen Delivery Method Room Air - Lab Data Lab results reviewed: Yes: I reviewed the patient's lab results. Lab Results 09/17/20 23:40: ESR 71 H 09/17/20 23:40: D-Dimer 2.20 09/17/20 23:40: Sodium 136, Potassium 3.0 L, Chloride 109 H, Carbon Dioxide 18 L, Anion Gap 12.0, BUN 8, Creatinine 0.80, Estimated Creat Clear 111, Estimated GFR 73, Est GFR ( Amer) 89, Glucose 138 H, Calcium 9.3, Total Bilirubin 0.7, AST 64 H, ALT 14, Alkaline Phosphatase 99, Troponin I 0.01, C-Reactive Protein 143.4 H, NT-Pro-B Natriuret Pep 9080 H, Total Protein 6.6 D, Albumin 3.3 L, Globulin 3.3 H, Albumin/Globulin Ratio 1.0 L 09/17/20 23:40: WBC 23.0 H*, RBC 3.73 L, Hgb 11.3 L, Hct 36.2 L, MCV 97.0, MCH 30.2, MCHC 31.1 L, RDW 14.9, Plt Count 412, MPV 8.3, Neut % (Auto) 92.6 H, Lymph % (Auto) 3.0 L, Gregory % (Auto) 2.7, Eos % (Auto) 1.5, Baso % (Auto) 0.2, Neut # (Auto)
--- NOTE | 2020-09-17 23:16 | ECG_ITS ---
APPROVED REPORT Exam: Resting ECG HR:92 bpm ECG Measurements Heart Rate 92 AXES MO 154 P 56 QRSd 88 QRS 57 QT 368 T -9 QTc 455 Conclusion Normal sinus rhythm Nonspecific ST and T wave abnormality Abnormal ECG Electronically signed by : Jason Spear, 09/18/2020 06:35:43
--- NOTE | 2020-09-17 23:16 | XR_ITS ---
PROCEDURE: XR CHEST PORTABLE CLINICAL HISTORY: soa Shortness of air, smoker COMPARISON: CT CT CHEST WO CON from 07/12/2020 CR XR CHEST PORTABLE PICC PLAC from 07/13/2020 CR XR CHEST PORTABLE from 07/15/2020 CR XR CHEST PORTABLE from 07/20/2020 FINDINGS: There are low lung volumes. There is cardiomegaly with pulmonary venous congestion which in part could be due to the low lung volumes. Perihilar infiltrate is present on the right. No obvious effusions. No acute bony anomalies. IMPRESSION: 1. CHF. 2. Right perihilar pneumonia Dictated by: Paresh Li MD 09/18/2020 08:23 Paresh Li MD in [facility] 09/18/2020 08:23
[2020-09-17 23:29] VITALS: BP 129/60; BP 132/63; BP 141/62; PULSE 72; PULSE 78; PULSE 80
[2020-09-17 23:54] LABS: Basophils % 0.2 % (0.1-2.0); Eosinophils # 0.4 K/mm3 (0.0-0.4); Eosinophils % 1.5 % (0.1-12.0); Hematocrit 36.2 % (37.0-47.0); Hemoglobin 11.3 g/dL (12.2-16.2); Lymphocytes # 0.7 K/mm3 (0.7-4.5); Mean Corpuscular HGB Conc 31.1 g/dL (31.8-35.4); Mean Corpuscular Hemoglobin 30.2 pg (27.0-31.2); Mean Platelet Volume 8.3 fl (7.4-10.4); Monocytes # 0.6 K/mm3 (0.1-1.0); Monocytes % 2.7 % (1.7-9.3); Neutrophils # 21.3 K/mm3 (1.8-7.8); Neutrophils % 92.6 % (37.0-80.0); Platelet Count 412 K/mm3 (142-424); Red Blood Count 3.73 M/mm3 (4.20-5.40); Red Cell Distribution Width 14.9 % (11.5-17.5)
[2020-09-18 00:01] LABS: MANUAL DIFFERENTIAL MANUAL DIFFERENTIAL (MANUAL DIFF)
[2020-09-18 00:02] VITALS: BP 132/63; PULSE 81; RESP 18; O2SAT 90
[2020-09-18 00:02] LABS: Chloride 109 mmol/L (98-107); Sodium 136 mmol/L (136-145)
[2020-09-18 00:05] LABS: Alanine Aminotransferase 14 U/L (12-78); Albumin Level 3.3 g/dl (3.5-5.0); Alkaline Phosphatase 99 U/L (38-126); Aspartate Amino Transferase 64 U/L (14-36); Bilirubin,Total 0.7 mg/dl (0.2-1.3); Blood Urea Nitrogen 8 mg/dl (7-17); Carbon Dioxide 18 mmol/L (22.0-30.0); Creatinine Clearance Estimated 111 mL/min (50-200); Estimated Glomerular Filt Rate 73 ml/min (>60); GFR (African American) 89 ML/MIN (>60); Globulin 3.3 g/dL (1.3-3.2); Total Protein,Serum 6.6 g/dl (6.3-8.2)
[2020-09-18 00:06] LABS: Calcium 9.3 mg/dl (8.4-10.2); Glucose 138 mg/dl (74-100)
[2020-09-18 00:17] LABS: C-Reactive Protein 143.4 mg/L (0-4)
[2020-09-18 00:22] LABS: Lymphocytes % 8 % (10-50); Neutrophils % 82 % (42-76); Total Cells Counted 100
[2020-09-18 00:23] LABS: Hypochromasia 3+; Macrocytosis 1+; Platelet Estimate Normal
[2020-09-18 00:25] LABS: NT Pro Brain Natriuretic Pep. 9080 pg/mL (0-125)
--- NOTE | 2020-09-18 00:25 | PC.NURSE ---
annual greenhouse manager at bedside attempting to initiate IV.
[2020-09-18 00:27] LABS: Erythrocyte Sedimentation Rate 71 mm/hr (0-30)
[2020-09-18 00:30] LABS: Troponin I 0.01 ng/ml (0.00-0.034)
--- NOTE | 2020-09-18 00:40 | CT_ITS ---
PROCEDURE: CT ANGIO CHEST CLINCIAL INDICATION: SOA Shortness of breath, smoker COMPARISON: CT CT CHEST WO CON from 07/12/2020 CR XR CHEST PORTABLE from 09/18/2020 TECHNIQUE: IV Contrast: 70ML Isovue 370 Axial images obtained with sagittal and coronal reformats. All CT scans at the facility use one or more dose reduction, viz: automated exposure control, ma/kV adjustment per patient size (including targeted exams where dose is matched to indication, i.e. head), or iterative reconstruction technique. FINDINGS: No central pulmonary embolus apparent. Peripheral pulmonary arteries are not well opacified. No aortic aneurysm or dissection. There is cardiomegaly with mild thickening of the pericardium. Enlarged mediastinal lymph nodes are present in the prevascular space, subcarinal region and jody. The nodes may be slightly larger compared to the previous exam in the AP window region. Subcarinal adenopathy noted in appears worse. There is diffuse bilateral ground-glass opacification of the lungs. No cavitation. Central airways are clear. No acute bony finding. Mild upper thoracic curvature convex left and lower thoracic curvature convex right. Prior cholecystectomy. Splenomegaly at 14 cm. IMPRESSION: 1. No evidence pulmonary embolus. 2. Diffuse ground-glass consolidation in both lungs. This may be related to pneumonitis either recurrence acute or chronic having a somewhat similar appearance on the previous exam. 3. Mediastinal and hilar adenopathy which appears worse. Follow-up suggested. Dictated by: Paresh Li MD 09/18/2020 09:31 Paresh Li MD in [facility] 09/18/2020 09:31
[2020-09-18 00:50] VITALS: BP 105/43; PULSE 78; RESP 19; O2SAT 91
--- NOTE | 2020-09-18 00:52 | PC.NURSE ---
notified lab, valencia palumbo, re: proc
--- NOTE | 2020-09-18 00:55 | PC.NURSE ---
pt to RAD
--- NOTE | 2020-09-18 01:16 | PC.NURSE ---
pt back from RAD
[2020-09-18 01:30] VITALS: BP 100/67; PULSE 86; RESP 18; O2SAT 89
[2020-09-18 02:00] VITALS: BP 103/46; PULSE 79; RESP 17; O2SAT 90
[2020-09-18 02:09] LABS: Procalcitonin 0.934 ng/mL (0.0-2.0)
[2020-09-18 02:32] VITALS: BP 106/56; PULSE 83; RESP 17; TEMP 37.1; O2SAT 90
== END 2020-09-18 02:43 | disposition home or self-care (01) ==
PROVIDERS: Emergency Provider Emergency Medicine; PCP Family Medicine
DX: R42 Dizziness and giddiness (principal); R06.00 Dyspnea, unspecified; R70.0 Elevated erythrocyte sedimentation rate; R79.89 Other specified abnormal findings of blood chemistry; R79.82 Elevated C-reactive protein (CRP); F41.8 Other specified anxiety disorders; E03.9 Hypothyroidism, unspecified; I10 Essential (primary) hypertension; K21.9 Gastro-esophageal reflux disease without esophagitis; M79.7 Fibromyalgia; Z88.0 Allergy status to penicillin; Z88.2 Allergy status to sulfonamides; Z79.899 Other long term (current) drug therapy; F17.210 Nicotine dependence, cigarettes, uncomplicated
CPT/HCPCS: 36415; 71045; 71275; 80053; 83605; 83880; 84145; 84484; 85007; 85025; 85378; 85651; 86140; 87040; 93005; 96374; 99284; Q9967

== ENCOUNTER 2020-09-21 14:30 | Outpatient (CLI) | payer MEDICAID, SELFPAY ==
[2020-09-21 14:58] VITALS: BP 144/81; PULSE 72; RESP 18; TEMP 36.6; O2SAT 98
[2020-09-21 15:35] VITALS: BP 151/79; PULSE 78; RESP 18; O2SAT 97
== END 2020-09-21 15:40 | disposition home or self-care (01) ==
LOC: INF 14:30
PROVIDERS: Visit Provider Internal Medicine Medical Oncology
DX: D50.9 Iron deficiency anemia, unspecified (principal)
CPT/HCPCS: 96365; J1439

== ENCOUNTER 2020-09-28 14:20 | Outpatient (CLI) | payer MEDICAID, SELFPAY ==
[2020-09-28 14:35] VITALS: BP 100/47; PULSE 50; RESP 18; TEMP 36.6; O2SAT 96
[2020-09-28 15:17] VITALS: BP 114/55; PULSE 45; RESP 18
== END 2020-09-28 15:17 | disposition home or self-care (01) ==
LOC: INF 14:43
PROVIDERS: Visit Provider Internal Medicine Medical Oncology
DX: D50.9 Iron deficiency anemia, unspecified (principal)
CPT/HCPCS: 96365; J1439

== ENCOUNTER → 2020-10-14 12:10 | Outpatient (CLI) | payer OTHER, SELFPAY ==
--- NOTE | 2020-10-14 12:20 | XR_ITS ---
PROCEDURE: XR ANKLE WT BEARING RT MIN 3V CLINICAL INDICATION: s/p ORIF RT ankle Follow-up surgery COMPARISON: CR XR ANKLE RT MIN 3V from 07/07/2020 DX 1-ANKLE 3V-RT from 07/27/2020 CR XR ANKLE RT MIN 3V from 08/08/2020 CR XR ANKLE RT MIN 3V from 09/05/2020 FINDINGS: Postsurgical changes are present. There are multiple lucencies in the distal fibula on the right from prior hardware removal. There are 2 screws remaining within the medial malleolus. Mottled density is present at the distal fibula from the previous surgery. No significant change. Mild soft tissue swelling laterally. Pes planus. IMPRESSION: Postsurgical changes overall not significantly changed. Dictated by: Paresh Li MD 10/14/2020 13:45 Paresh Li MD in [facility] 10/14/2020 13:45
== END ==
PROVIDERS: PCP Family Medicine; Visit Provider Orthopaedic Surgery
DX: S82.853A Displaced trimalleolar fracture of unspecified lower leg, initial encounter for closed fracture (principal); M25.571 Pain in right ankle and joints of right foot
CPT/HCPCS: 73610

== ENCOUNTER → 2020-11-01 11:30 | Outpatient (CLI) | payer OTHER, SELFPAY ==
--- NOTE | 2020-11-01 11:39 | XR_ITS ---
PROCEDURE: XR HAND LT MIN 3V CLINICAL INDICATION: BL hand pain COMPARISON: No exams were available for comparison FINDINGS: No fracture or dislocation. No lytic or blastic change. There is normal mineralization. Osteoarthritic changes are present at the 1st metacarpal-carpal junction. Other findings:None. IMPRESSION: Osteoarthritic change 1st metacarpal-carpal junction otherwise negative Dictated by: Paresh Li MD 11/01/2020 12:52 Paresh Li MD in [place] 11/01/2020 12:52
--- NOTE | 2020-11-01 11:39 | XR_ITS ---
PROCEDURE: XR HAND RT MIN 3V CLINICAL INDICATION: BL hand pain COMPARISON: No exams were available for comparison FINDINGS: No fracture or dislocation. No lytic or blastic change. There is normal mineralization. Mild osteoarthritic change 1st metacarpal-carpal junction. Bony exostosis is present at the distal aspect of the radius laterally. Other findings:None. IMPRESSION: Mild osteoarthritis 1st metacarpal-carpal junction and bony exostosis of the distal radius laterally otherwise negative with no acute finding Dictated by: Paresh Li MD 11/01/2020 12:53 Paresh Li MD in [facility] 11/01/2020 12:53
== END ==
PROVIDERS: PCP Family Medicine; Visit Provider Orthopaedic Surgery
DX: M79.642 Pain in left hand (principal); M79.641 Pain in right hand
CPT/HCPCS: 73130

== ENCOUNTER 2020-11-02 13:30 | Outpatient (RCR) | payer MEDICAID, OTHER, SELFPAY ==
--- NOTE | 2020-09-20 16:50 | HMH.PTOPEV ---
PT Outpatient Evaluation Rehab PT Outpatient Evaluation Start: 09/20/20 14:09 Freq: Status: Active Protocol: Document 09/20/20 16:22 JOHN (Rec: 09/20/20 16:50 PHORVISHAL [id number]) Electronically Signed By Driss Falk, PT 09/20/20 16:22 Outpatient Therapy Subjective History Subjective History Pt is 60 yowf who presents with R ankle pain, stiffness, edema, and open wound at surgical site after 2 different surgeries to R ankle for tri-malleolar fx and then hardware removal. She c/o sharp pains shooting into her foot intermittently. She also had +MRSA culture when her lateral ankle hardware was removed. She has PMH of anxiety, COPD, CHF, CAD, HTN, and MRSA. Chief Complaint Pain,Stiff,Swelling,Other Symptom Type Sharp,Shooting Symptoms Relieved By Rest/Positioning Symptoms Aggravated By Physical Activity Prior Functional Limitations None Current Functional Limitations Standing,Recreation Activity, Walking Symptom Description Intermittent Level of pain today (0-10) 2 Pain scale - at its worst (0-10) 8 Ankle/Foot Eval Gait Observation General Gait Pattern Observation Antalgic Gait Palpation Tenderness right Ankle/Foot Palpation Findings Tenderness ROM Ankle/Foot Dorsiflexion w/Knee Extended 0 Active Range Motion (degrees) Ankle/Foot Plantar Flexion Active Range 0-40 of Motion (degrees) Ankle/Foot Eversion Active Range of 0-12 Motion (degrees) Ankle/Foot Inversion Active Range of 0-15 Motion (degrees) MMT Ankle Dorsiflexion Strength Grade 4 Good Ankle Plantarflexion Strength Grade 4 Good Foot Eversion Strength Grade 4 Good Foot Inversion Strength Grade 4 Good Outpatient Therapy Assessment Impairments Problems/Impairmments Palpation Tenderness,Impaired Range of Motion,Impaired Strength,Impaired Endurance, Impaired Gait Pattern,Impaired Walking,Impaired Standing, Increased Edema,Lymphedema Present,Wound Care Needs, Subjective C/O Pain,Impaired Self Care/Self Management Prognosis Rehab Potential Good Clinical Impression Consistent with Diagnosis Yes Short Term Goals
--- NOTE | 2020-10-26 15:50 | HMH.RHREAS ---
Rehab Reassessment Rehab OP Re-assessment Start: 10/26/20 15:43 Freq: Status: Active Protocol: Document 10/26/20 15:43 JOHN (Rec: 10/26/20 15:47 JOHN [id number]) Electronically Signed By Driss Falk, PT 10/26/20 15:43 Rehab Re-assessment Subjective Subjective Pt reports her infectious disease MD was happy with her wound and she feels she is walking much better now. Objective Objective Notes R ankle AROM (in deg): DF= 0-7 , PF= 0-55, INV= 0-31, EVER= 0 -14 Assessment Progress Assessment Progressing as Expected Assessment Notes Pt with significantly improved AROM, less pain overall. She does continue to have numbness on the dorsal surface of R foot. Patient goals met All STGs Goals Not Met All LTGs Revised Goals none Plan Plan Continue per initial POC Frequency of Therapy 2 x/wk Duration of therapy 8 wks Time and Billing Re-Eval Time 15 Re-Eval Billing Units 1 PHYSICIAN CERTIFICATION: I certify the specified therapy services for Becca Rai are required, authorized, and reviewed every 30 days.
== END 2020-11-02 13:35 | disposition home or self-care (01) ==
LOC: PT 13:30
PROVIDERS: PCP Family Medicine; Visit Provider Orthopaedic Surgery
DX: S82.851D Displaced trimalleolar fracture of right lower leg, subsequent encounter for closed fracture with routine healing (principal); T81.30XA Disruption of wound, unspecified, initial encounter; T84.498A Other mechanical complication of other internal orthopedic devices, implants and grafts, initial encounter
CPT/HCPCS: 97010; 97014; 97110; 97140; 97163; 97164; 97530; 97597; G0283

== ENCOUNTER → 2020-11-16 10:19 | Outpatient (CLI) | payer OTHER, SELFPAY ==
[2020-11-16 10:44] LABS: Basophils % 0.5 % (0.1-2.0); Eosinophils # 0.1 K/mm3 (0.0-0.4); Eosinophils % 1.3 % (0.1-12.0); Hematocrit 43.3 % (37.0-47.0); Hemoglobin 13.8 g/dL (12.2-16.2); Lymphocytes # 2.3 K/mm3 (0.7-4.5); Lymphocytes % 27.7 % (10-50); Mean Corpuscular HGB Conc 31.8 g/dL (31.8-35.4); Mean Corpuscular Hemoglobin 30.7 pg (27.0-31.2); Mean Corpuscular Volume 96.4 fl (81-99); Mean Platelet Volume 7.8 fl (7.4-10.4); Monocytes # 0.4 K/mm3 (0.1-1.0); Monocytes % 4.4 % (1.7-9.3); Neutrophils # 5.4 K/mm3 (1.8-7.8); Neutrophils % 66.1 % (37.0-80.0); Platelet Count 248 K/mm3 (142-424); Red Blood Count 4.49 M/mm3 (4.20-5.40); White Blood Count 8.1 K/mm3 (4.8-10.8)
[2020-11-16 11:39] LABS: Chloride 103 mmol/L (98-107)
[2020-11-16 11:40] LABS: Sodium 137 mmol/L (136-145)
[2020-11-16 11:42] LABS: Alanine Aminotransferase 35 U/L (12-78); Alkaline Phosphatase 73 U/L (38-126); Aspartate Amino Transferase 49 U/L (14-36); Bilirubin,Total 0.4 mg/dl (0.2-1.3); Blood Urea Nitrogen 15 mg/dl (7-17); Carbon Dioxide 30 mmol/L (22.0-30.0); Estimated Glomerular Filt Rate 85 ml/min (>60); GFR (African American) 103 ML/MIN (>60)
[2020-11-16 11:43] LABS: Albumin Level 3.9 g/dl (3.5-5.0); Albumin/Globulin Ratio 1.2 (1.1-1.8); Calcium 9.8 mg/dl (8.4-10.2); Globulin 3.2 g/dL (1.3-3.2); Glucose 99 mg/dl (74-100); Total Protein,Serum 7.1 g/dl (6.3-8.2)
[2020-11-16 12:50] LABS: Coronavirus 19 IgG Antibody Negative (Negative); Coronavirus 19 IgM Antibody Negative (Negative)
== END ==
PROVIDERS: Visit Provider Orthopaedic Surgery
DX: Z01.818 Encounter for other preprocedural examination (principal); Z20.822 Contact with and (suspected) exposure to COVID-19; G56.02 Carpal tunnel syndrome, left upper limb
CPT/HCPCS: 36415; 80053; 85025; 86328

== ENCOUNTER 2020-11-17 08:51 | Day surgery (SDC) | payer OTHER, SELFPAY ==
[2020-11-15 13:06] VITALS: BMI 35.6
[2020-11-17 09:54] VITALS: BP 136/52; PULSE 59; RESP 18; TEMP 36.9; O2SAT 95
[2020-11-17 12:55] VITALS: BP 104/50; PULSE 59; RESP 18; TEMP 36.3; O2SAT 98
[2020-11-17 13:05] VITALS: BP 115/50; PULSE 65; RESP 18; O2SAT 95
--- NOTE | 2020-11-17 13:12 | HMH.OPNOTE ---
Date of procedure: 11/17/20 Pre-op Diagnosis:: 1) L carpal tunnel syndrome 2) L wrist deQuervain's tenosynovitis Post-op Diagnosis:: 1) L carpal tunnel syndrome 2) L wrist deQuervain's tenosynovitis Procedure performed:: 1) L carpal tunnel release 2) L wrist deQuervain's release Surgeon:: Ave Finn MD Business Broker(s):: Tequila Truong MANAGER WASTEWATER:: Steven Cormier Anesthesia: MAC, local Estimated blood loss (mL): 5 Clinical Note:: 60yo F with bilateral hand pain, numbness and tingling present for many months. She has pain at the base of her thumbs and numbness in all the digits of her fingers. She denies any prior history of injury to or surgery on her hands or wrists. Pain and numbness frequently wake her at nighttime and she notices a popping at the base of her thumbs bilaterally. 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 She has a separate focus of pain over the radial aspect of bilateral wrists with occasional crepitus; consistent with deQuervain's tenosynovitis. EMG?NCS of bilateral upper extremities was performed at [facility] on 11/01/2020; the report is not available due to a technical issue with the neurology department counter server, but I've discussed the patient with our neurologist, Dr. Hendrix. She was able to access raw data in their office that is kept as paper backup to their studies. She reported what appeared to be a mild carpal tunnel syndrome on the left and borderline on the right, sensory component only. I discussed treatment options with the patient, and she wishes to proceed with carpal tunnel release. Clinically she does have carpal tunnel syndrome and I believe would benefit from surgery. She is okay proceeding and would like to do this as soon as possible. The patient would like to proceed with surgical intervention at this time. She would like to proceed with carpal tunnel release and de Quervain's release at the same time. The left is more severe than the right and she would like to proceed with surgery on the left. To provide symptomatic relief on the right, a corticosteroid injection was done on the right for deQuervain's, on 11/11/20. I discussed the risks of surgery with the patient, including bleeding, infection, neurovascular damage, wound healing complications, postoperative pain and stiffness, recurrence of carpal tunnel and deQuervain's. The patient vocalized understanding of the risks of surgery and informed consent was obtained. Operative findings:: median nerve compression L wrist, deQuervain's tenosynovitis L wrist Operative note:: The patient was identified in preoperative holding and the L wrist/hand signed by myself. I reviewed the consent with the patient, answering all questions. She was then seen by anesthesia and the decision made to perform the surgery under local/MAC. The patient was then taken to the OR and placed supine on the operative table with a hand table attached under the left upper extremity. 2g vancomycin, as dosed by pharmacy, was infused and MAC sedation administered. Non-sterile tourniquet was placed on the upper L arm and the arm prepped and draped in the usual sterile fashion. Timeout was performed, identifying the correct patient, correct procedure, and correct site. The procedure was begun by marking anatomic landmarks and planned surgical incisions. The patient did not have a readily identifiable palmaris, but the FCR was palpated and a line drawn in this location on the L wrist. The distal flexion crease was identified, and longitudinal line drawn from this point distally, extending in line with the radial border of the ring finger and ending at its intersection with Quispe's cardinal line. The incision was approximately 2.5cm in length. Next, the radial styloid was marked and at a point approximately 2cm proximal to this, a transverse incision was drawn 1.5cm in width. The L arm was then exsanguinated with as Esmarch and the tourniquet inflate
[2020-11-17 13:25] VITALS: BP 122/63; PULSE 67; RESP 18; O2SAT 100
[2020-11-17 13:48] VITALS: BP 143/68; PULSE 63; RESP 18; O2SAT 100
== END 2020-11-17 13:50 | disposition home or self-care (01) ==
LOC: OR 08:53
PROVIDERS: PCP Family Medicine; Visit Provider Orthopaedic Surgery
PROC: (CPT 64721; principal; 2020-11-17 10:30)
DX: G56.02 Carpal tunnel syndrome, left upper limb (principal); M65.4 Radial styloid tenosynovitis [de Quervain]
CPT/HCPCS: 64721; 25000; 96374; J3370

== ENCOUNTER → 2020-12-21 15:43 | Outpatient (CLI) | payer OTHER, SELFPAY ==
[2020-12-21 17:14] LABS: Basophils % 0.5 % (0.1-2.0); Eosinophils # 0.2 K/mm3 (0.0-0.4); Eosinophils % 2.3 % (0.1-12.0); Hematocrit 40.8 % (37.0-47.0); Hemoglobin 13.5 g/dL (12.2-16.2); Lymphocytes # 2.2 K/mm3 (0.7-4.5); Lymphocytes % 25.8 % (10-50); Mean Corpuscular HGB Conc 33.1 g/dL (31.8-35.4); Mean Corpuscular Hemoglobin 32.3 pg (27.0-31.2); Mean Corpuscular Volume 97.6 fl (81-99); Mean Platelet Volume 8.4 fl (7.4-10.4); Monocytes # 0.4 K/mm3 (0.1-1.0); Monocytes % 4.3 % (1.7-9.3); Neutrophils # 5.6 K/mm3 (1.8-7.8); Neutrophils % 67.1 % (37.0-80.0); Platelet Count 272 K/mm3 (142-424); Red Blood Count 4.18 M/mm3 (4.20-5.40); Red Cell Distribution Width 15.2 % (11.5-17.5); White Blood Count 8.3 K/mm3 (4.8-10.8)
[2020-12-21 17:43] LABS: Chloride 101 mmol/L (98-107); Potassium 4.4 mmoL/L (3.5-5.1); Sodium 138 mmol/L (136-145)
[2020-12-21 17:45] LABS: Blood Urea Nitrogen 10 mg/dl (7-17); Estimated Glomerular Filt Rate 64 ml/min (>60); GFR (African American) 77 ML/MIN (>60)
[2020-12-21 17:46] LABS: Alanine Aminotransferase 42 U/L (12-78); Albumin Level 4.4 g/dl (3.5-5.0); Albumin/Globulin Ratio 1.5 (1.1-1.8); Alkaline Phosphatase 107 U/L (38-126); Anion Gap 9.4 mEq/L (5-15); Aspartate Amino Transferase 45 U/L (14-36); Bilirubin,Total 0.4 mg/dl (0.2-1.3); Calcium 9.7 mg/dl (8.4-10.2); Carbon Dioxide 32 mmol/L (22.0-30.0); Globulin 2.9 g/dL (1.3-3.2); Glucose 86 mg/dl (74-100); Iron 121 ug/dL (37-170); Total Protein,Serum 7.3 g/dl (6.3-8.2)
[2020-12-21 17:56] LABS: Total Iron Binding Capacity 272 ug/dL (265-497)
[2020-12-21 18:21] LABS: Ferritin 481 ng/ml (11.1-264)
[2020-12-23 13:49] LABS: Immunoglobulin M, Qn 382 mg/dL (26-217)
== END ==
PROVIDERS: Visit Provider Internal Medicine Medical Oncology
DX: D64.9 Anemia, unspecified (principal)
CPT/HCPCS: 36415; 80053; 82728; 82784; 83540; 83550; 85025

== ENCOUNTER → 2020-12-27 15:39 | Outpatient (CLI) | payer OTHER, SELFPAY ==
[2020-12-27 19:22] LABS: Coronavirus 19 IgG Antibody Negative (Negative); Coronavirus 19 IgM Antibody Negative (Negative)
== END ==
PROVIDERS: Visit Provider Orthopaedic Surgery
DX: Z01.818 Encounter for other preprocedural examination (principal); Z20.822 Contact with and (suspected) exposure to COVID-19; G56.00 Carpal tunnel syndrome, unspecified upper limb; M65.4 Radial styloid tenosynovitis [de Quervain]
CPT/HCPCS: 36415; 86328

== ENCOUNTER 2020-12-29 08:01 | Day surgery (SDC) | payer OTHER, SELFPAY ==
[2020-12-28 13:09] VITALS: BMI 35.9
[2020-12-29] VITALS (11 sets, daily range): BP systolic 94–130; BP diastolic 49–75; PULSE 68–76; RESP 14–18; TEMP 6.1–43; O2SAT 94–100
--- NOTE | 2020-12-29 08:59 | HMH.ANESCL ---
[facility] Anesthesia Checklist - Patient Identification Patient Identification: Arm Band - Structural Data Admitted From: Home Planned Operative Procedure/s: Carpal tunnel release, Dequervain's Consent for Planned Operative Procedure(s) Verified: Yes - NPO Status Verified Time NPO: 00:00 - Additional verifications Anesthesia Reactions: No (nausea) Hx Blood Transfusions: No Blood Transfusion Reaction: No - Airway Assessment C-Spine Mobility Assessed: Yes TMJ Mobility Assessed: Yes Dentition: Dentures-good fit (Upper, removed) - Neurological Assessment Level of Consciousness: Awake, Alert Hx Seizures: No Numbness or tingling in extremities: Yes - Anesthesia Plan Anesthesia Risk discussed: Yes Anesthesia Plan: Verified ASA Class: III Anesthesia Type: Local & MAC [facility] History I have reviewed the patient's past medical history: Yes Medical History: Reports:: Anxiety, Atherosclerotic Heart Disease, Congestive Heart Failure, Chronic Obstructive Pulmonary Disease (COPD), Coronary Artery Disease, Depression, Gall Bladder Disease, Gastroesophageal Reflux Disease(GERD), Hyperlipidemia, Hypertension, Lung Disease, Migraine, Myocardial Infarction Denies:: Cancer, Diabetes Mellitus Type 1, Diabetes Mellitus Type 2, Internal Pacemaker, MRSA, Seizures *Have you ever received a pneumonia vaccine?: No *Have you received a flu vaccine this season?: No Other Medical History: Reports: Anemia, Arthritis, Fibromyalgia, Hypothyroidism, Liver Disease, Sinus Problems, Thyroid Disease, Other. Denies: Blood Transfusion Reaction Anesthesia experience/problems:: None Laterality Cases: Right: Other, Bilateral: Tonsillectomy Other Surgeries: Yes: No Previous Surgery, Angiogram, Angioplasty, Cardiac Catheterization, Cholecystectomy, Colonoscopy, Dilation and Curettage, Hysterectomy-Total, Other. No: Pacemaker Amputation: No Fractures: Yes (right ankle/TIBIA) - *Social History Last grade of school completed: Advanced degree Smoking Status: Current every day smoker Tobacco Type: cigarettes # Packs/Day (cigarettes): 1 #Yrs smoked (if former smoker): 1 Alcohol Intake: current Alcohol Intake Frequency:: holidays/special occasions only Substance Use Type: opiates *Occupational Status:: unemployed Housing: house Household Members: family *Travel in the last 8 weeks: None - Psychiatric History Pschychiatric History:: Reports:: Anxiety, Depression Family Hx:: Cancer
--- NOTE | 2020-12-29 10:34 | HMH.ANESI ---
[facility] Anesthesia Record Part I Intake, IV Amount: 600 Estimated blood loss (mL): 5 Urine output (mL): 0 Blood Pressure: 116/54 SaO2: 100 Pulse Rate: 71 Respiratory Rate: 14 Temperature: 97.3 F Patient is:: Awake Stable to PACU at:: 10:30
--- NOTE | 2020-12-29 13:06 | P.PN_ITS ---
[facility] Anesthesia Record Part II Discharge Time: 11:10 Destination: [facility] PACU nurse assessment reviewed?: Yes Patient Condition:: Good Anesthesia Complications:: None Swallowing reflex intact?: Yes Cyanosis?: No Blood Pressure: 130/75 Pulse Rate: 75 Temperature: 97.8 F Mental Status: Alert & Oriented Pain level:: 0 Nausea and/or vomitting:: None Intake, IV Amount: 1,000
--- NOTE | 2020-12-29 14:13 | HMH.OPNOTE ---
Date of procedure: 12/29/20 Pre-op Diagnosis:: R upper extremity: 1) carpal tunnel syndrome 2) deQuervain's tenosynovitis Post-op Diagnosis:: R upper extremity: 1) carpal tunnel syndrome 2) deQuervain's tenosynovitis Procedure performed:: R upper extremity: 1) carpal tunnel release 2) deQuervain's release Surgeon:: Ave Finn MD Hand Candle Molder(s):: Debbie Crawford ENGINEER/CONDUCTOR:: Other (Rodger Hood) Anesthesia: local, LMA Estimated blood loss (mL): 5 Clinical Note:: 60yo F with bilateral carpal tunnel syndrome and deQuervain's tenosynovitis s/p L carpal tunnel release and deQuervain's release 11/17/20. She did well after surgery and would like to proceed with the same procedure on the R side. I discussed the risks of surgery with the patient, including bleeding, infection, neurovascular damage, wound healing complications, postoperative pain and stiffness, recurrence of carpal tunnel and deQuervain's. The patient vocalized understanding of the risks of surgery and informed consent was obtained. Operative findings:: median nerve compression at the R wrist R deQuervain's tenosynovitis Operative note:: The patient was identified in preoperative holding and the R wrist/hand signed by myself. I reviewed the consent with the patient, answering all questions. She was then seen by anesthesia and the decision made to perform the surgery under local/MAC. The patient was then taken to the OR and placed supine on the operative table with a hand table attached under the R upper extremity. Vancomycin, as dosed by pharmacy, was infused and MAC sedation administered. Non-sterile tourniquet was placed on the upper R arm, which was then prepped and draped in the usual sterile fashion. Timeout was performed, identifying the correct patient, correct procedure, and correct site. The procedure was begun by marking anatomic landmarks and planned surgical incisions. The patient did not have a readily identifiable palmaris, but the FCR was palpated and a line drawn in this location on the R wrist. The distal flexion crease was identified, and longitudinal line drawn from this point distally, extending in line with the radial border of the ring finger and ending at its intersection with Quispe's cardinal line. The incision was approximately 2.5cm in length. Next, the radial styloid was marked and at a point approximately 1.5cm proximal to this, a transverse incision was drawn 2cm in width. 20cc 0.5% marcaine without epinephrine was infiltrated at both incision sites, split between the two locations. The R arm was then exsanguinated with as Esmarch and the tourniquet inflated to 250mmHg. The carpal tunnel release was performed first. An incision was made over the pre-drawn incision using a 15 blade. After the skin was incised, tenotomy scissors were used to bluntly spread the subcutaneous tissue. Palmar fascia was encountered and incised in line with the incision. As this tissue was bluntly spread, the origin of the thenar muscle was encountered. The fascia over this muscle was incised and the muscle reflected radially, which exposed the underlying transverse carpal ligament (TCL). The TCL was incised centrally with a 15 blade, opening a 5mm window through which a blunt freer was inserted. The freer was used to protect the underlying contents of the carpal tunnel. The 15 blade was then used to cut down onto the freer, releasing the visible portions of the TCL proximally and distally. When the distal extent of the visible TCL was released, tenotomy scissors were used to spread the palmar fascia at the distal end of the TCL, revealed the fat pad that wells the end of the carpal tunnel, thereby avoiding injury to the superficial palmar arch. The TCL was seen to be completely released distally. The proximal third of the TCL was then released, using tenotomy scissors to complete the release, as well as releasing the distal 1cm of the deep forearm fascia. The patient was experiencing some disc
== END 2020-12-29 11:36 | disposition home or self-care (01) ==
LOC: OR 08:02
PROVIDERS: PCP Family Medicine; Visit Provider Orthopaedic Surgery
PROC: (CPT 64721; principal; 2020-12-29 09:30)
DX: G56.01 Carpal tunnel syndrome, right upper limb (principal); M65.4 Radial styloid tenosynovitis [de Quervain]
CPT/HCPCS: 64721; 25000; 96374; J0131; J3370

== ENCOUNTER 2021-01-11 13:00 | Outpatient (RCR) | payer OTHER, SELFPAY ==
--- NOTE | 2020-12-01 14:45 | HMH.PTOPEV ---
PT Outpatient Evaluation Rehab PT Outpatient Evaluation Start: 12/01/20 14:28 Freq: Status: Active Protocol: Document 12/01/20 14:28 JOHN (Rec: 12/01/20 14:45 JOHN [id number]) Electronically Signed By Driss Falk, PT 12/01/20 14:28 Outpatient Therapy Subjective History Subjective History Pt is 60 yowf who presents ~ 2 wks S/P L Carpal Tunnel Release and DeQuervain's tenosynovitis release with expected post-op pain, stiffness and weakness. She reports mild tenderness around the incisions and intermittent numbness in her thumb. She reports pain usually aching, but some sharp and burning symptoms. She has obvious difficulty gripping objects at this time. She recently had an ankle surgery with delayed healing of the incision, but is fully healed at this point. Chief Complaint Pain,Stiff,Paresthesia, Weakness,Decreased Airborne Operations Manager Strength Symptom Type Ache,Sharp,Burning,Shooting Symptoms Relieved By Rest/Positioning Symptoms Aggravated By Physical Activity Prior Functional Limitations None Current Functional Limitations Lifting,Desk Work/Reading, Recreation Activity Symptom Description Constant but Variable Level of pain today (0-10) 5 Pain scale - at its worst (0-10) 8 Wrist/Hand Eval Palpation Tenderness/Visual Exam Wrist pain left thenar eminence atrophy hand/finger exam left standard Flexibility Deficits Wrist Extensors Muscle Length (L) Mild Tightness Wrist Flexors Muscle Length (L) Mild Tightness Thumb Extensors Muscle Length (L) Mild Tightness Thumb Abductors Muscle Length (L) Mild Tightness Wrist Range of Motion Left Wrist Extension Active Range of Motion ( 0-40 degrees) Wrist Flexion Active Range of Motion ( 0-37 degrees) Wrist Radial Deviation Active Range of 0-17 Motion (degrees) Wrist Ulnar Deviation Active Range of 0-20 Motion (degrees) Forearm Supination Active Range of 0-70 Motion (degrees) Forearm Pronation Active Range of Motion 0-90 (degrees) Wrist Manual Muscle Testing Left Wrist Extension Strength Grade 2+ Poor+ Wrist Flexion Strength Grade
== END 2021-01-11 13:05 | disposition home or self-care (01) ==
LOC: PT 13:00
PROVIDERS: PCP Family Medicine; Visit Provider Orthopaedic Surgery
DX: G56.02 Carpal tunnel syndrome, left upper limb (principal)
CPT/HCPCS: 97010; 97014; 97035; 97110; 97140; 97163; 97164; G0283

== ENCOUNTER 2021-02-21 13:49 | Outpatient (RCR) | payer OTHER, SELFPAY ==
--- NOTE | 2021-02-21 14:39 | HMH.PTOPEV ---
PT Outpatient Evaluation Rehab PT Outpatient Evaluation Start: 02/21/21 14:11 Freq: Status: Active Protocol: Document 02/21/21 14:22 JOHN (Rec: 02/21/21 14:39 JOHN [id number]) Electronically Signed By Driss Falk, PT 02/21/21 14:22 Outpatient Therapy Subjective History Subjective History Pt is 60 yowf who presents ~ 2 mos S/P R CTR with De- Quervain's release with post- op stiffness and pain. She reports her post-op course was complicated by infection and wound dehiscence of the incision. She reports feeling better now that the incisions are ahealed, but some tenderness remains in the tony -incisional tissue. She reports no c/o numbness or tingling in the hand now (she had CTR of L hand prior and continues to have mild numbness/tingling on that side ). Chief Complaint Pain,Stiff Symptom Type Ache Symptoms Relieved By Rest/Positioning Symptoms Aggravated By Physical Activity Prior Functional Limitations None Current Functional Limitations Reaching,Lifting,Recreation Activity Symptom Description Intermittent,Activity Dependent Level of pain today (0-10) 3 Pain scale - at its worst (0-10) 8 Wrist/Hand Eval Palpation Tenderness/Visual Exam tenderness wrist exam standard right Wrist/Hand Palpation Findings Tenderness Wrist Range of Motion Right Wrist Extension Active Range of Motion ( 0-55 degrees) Wrist Flexion Active Range of Motion ( 0-33 degrees) Wrist Radial Deviation Active Range of 0-22 Motion (degrees) Wrist Ulnar Deviation Active Range of 0-20 Motion (degrees) Forearm Supination Active Range of 0-81 Motion (degrees) Forearm Pronation Active Range of Motion 0-90 (degrees) Coastal Tug Mate/Pinch Strength Right Coastal Tug Mate Strength Measurement (lbs) 30 Outpatient Therapy Assessment Impairments Problems/Impairmments Palpation Tenderness,Impaired Range of Motion,Impaired Strength,Impaired Endurance, Impaired Lifting,Impaired Recreational Activities, Increased Edema,Subjective C/O
== END 2021-02-21 13:55 | disposition home or self-care (01) ==
LOC: PT 13:49
PROVIDERS: PCP Family Medicine; Visit Provider Orthopaedic Surgery
DX: G56.01 Carpal tunnel syndrome, right upper limb (principal)
CPT/HCPCS: 97163

== ENCOUNTER 2021-03-14 15:37 | Observation (INO) | payer OTHER, SELFPAY ==
[2021-03-14] VITALS (9 sets, daily range): BP systolic 115–127; BP diastolic 53–99; PULSE 60–90; RESP 20–22; TEMP 36.9–37.1; O2SAT 88–100; BMI 36.3; BMI 37.1
--- NOTE | 2021-03-14 15:51 | ECG_ITS ---
APPROVED REPORT Exam: Resting ECG HR:79 bpm ECG Measurements Heart Rate 79 AXES NJ 134 P 52 QRSd 88 QRS 46 QT 374 T 7 QTc 428 Conclusion Normal sinus rhythm Possible Left atrial enlargement Borderline ECG Electronically signed by : Jason Spear, 03/15/2021 17:50:22
--- NOTE | 2021-03-14 15:51 | XR_ITS ---
PROCEDURE: XR CHEST PORTABLE CLINICAL HISTORY: hypoxia COMPARISON: CR XR CHEST PORTABLE from 07/15/2020 CR XR CHEST PORTABLE from 07/20/2020 CR XR CHEST PORTABLE from 09/18/[address] ANGIO CHEST from 09/18/2020 FINDINGS: Heart is mildly enlarged with mild pulmonary vascular congestion. Patchy right basilar atelectasis versus less likely infiltrate. Lungs otherwise clear. No pleural effusion or pneumothorax. No acute bony abnormality. IMPRESSION: Mild cardiomegaly with mild pulmonary vascular congestion and patchy right basilar atelectasis versus less likely infiltrate. Dictated by: Ezio Sanchez MD 03/14/2021 16:14 Ezio Sanchez MD in OV 03/14/2021 16:14
--- NOTE | 2021-03-14 15:58 | HMH.EDGENADL ---
ED Disposition Clinical Impression: COPD exacerbation Pneumonia Qualifiers: Pneumonia type: due to unspecified organism Laterality: right Lung location: unspecified part of lung Qualified Code(s): J18.9 - Pneumonia, unspecified organism Respiratory failure with hypoxia Qualifiers: Chronicity: acute Qualified Code(s): J96.01 - Acute respiratory failure with hypoxia Disposition: Admitted As Inpatient Condition on Discharge: Fair Referrals: Jason Khan MD [Primary Care Provider] - - Critical Care Critical Care Time: No Attestation: On 03/14/21, the high probability of a clinically significant, sudden or life threatening deterioration of the following system(s) required my full and direct attention, intervention and personal management. The time I documented below is in addition to time spent performing reported procedures but includes the following listed in this critical care notation. Medical Decision Making - Medical Records Medical records reviewed: Yes: I reviewed the patient's medical records. - Adolph Inquiry Pt receiving controlled substance: No Vital Signs: 03/14/21 15:38 03/14/21 15:51 03/14/21 16:01 Temperature 98.4 F Temperature Source Oral Pulse Rate 74 Pulse Rate [Radial] 90 Respiratory Rate 22 20 Blood Pressure 118/56 L Blood Pressure [Right Arm] 127/66 Blood Pressure Mean 76 Blood Pressure Mean [Right Arm] 86 Blood Pressure Position [Right Arm] Sitting 02 Sat by Pulse Oximetry 88 L 96 100 Oxygen Delivery Method Room Air Nasal Cannula Oxygen Flow Rate (LPM) 3 03/14/21 17:00 Temperature Temperature Source Pulse Rate 86 Pulse Rate [Radial] Respiratory Rate 20 Blood Pressure 118/84 Blood Pressure [Right Arm] Blood Pressure Mean Blood Pressure Mean [Right Arm] Blood Pressure Position [Right Arm] 02 Sat by Pulse Oximetry 98 Oxygen Delivery Method Nasal Cannula Oxygen Flow Rate (LPM) 3 - Lab Data Lab results reviewed: Yes: I reviewed the patient's lab results. Lab Results 03/14/21 16:20: SARS-CoV-2 (PCR) Not detected, Influenza A Untype (PCR) Not detected, Influenza Type B (PCR) Not detected 03/14/21 17:45: D-Dimer 0.98 H 03/14/21 17:45: NT-Pro-B Natriuret Pep 1810 H 03/14/21 17:45: WBC 12.3 H, RBC 2.98 L, Hgb 9.9 L, Hct 30.3 L, MCV 101.6 H, MCH 33.2 H, MCHC 32.6, RDW 13.7, Plt Count 356, MPV 7.3 L, Neut % (Auto) 79.5, Lymph % (Auto) 12.6, [place] % (Auto) 5.0, Eos % (Auto) 2.5, Baso % (Auto) 0.3, Neut # (Auto) 9.8 H, Lymph # (Auto) 1.6, [place] # (Auto) 0.6, Eos # (Auto) 0.3, Baso # (Auto) 0.0 03/14/21 17:45: Sodium 139, Potassium 3.3 L, Chloride 107, Carbon Dioxide 26, Anion Gap 9.3, BUN 6 L, Creatinine 0.70, Estimated Creat Clear 130, Estimated GFR 85, Est GFR ( Amer) 103, Glucose 108 H, Calcium 8.5, Troponin I < 0.01 03/14/21 18:03: VBG pH 7.30 L, VBG pCO2 46.7, VBG pO2 50.1 H, VBG HCO3 22.7 L, VBG Total CO2 24.1, VBG O2 Saturation 82.7 H, VBG Base Excess -3.7 L Result diagrams: 03/14/21 17:45 03/14/21 17:45 Orders (Tests/Meds): ED MEDICATIONS Generic Name Dose Route Start Last Admin Trade Name Freq PRN Reason Stop Dose Admin Azithromycin 500 mg/ Sodium 250 mls @ 250 mls/hr 03/14/21 16:00 03/14/21 17:53 Chloride IV 03/28/21 15:59 250 mls/hr Q24H LEN Administration Protocol Meropenem 1 gm/ Sodium 100 mls @ 100 mls/hr 03/14/21 16:30 Chloride IV 03/28/21 16:29 Q8H LEN Protocol Sodium Chloride 1,000 mls @ 999 mls/hr 03/14/21 18:30 Sod Chlor 0.9% 1000ml Bag IV 03/14/21 19:30 .Q1H1M LEN Discontinued Medications Generic Name Dose Route Start Last Admin Trade Name Freq PRN Reason Stop Dose Admin Albuterol/Ipratropium 9 ml 03/14/21 15:53 03/14/21 17:58 Ipratropium/Albuterol 3 Ml Neb IH 03/14/21 15:54 9 ml ONCE ONE Administration Magnesium Sulfate 2 gm/ Sodium 104 mls @ 100 mls/hr 03/14/21 15:56 03/14/21 17:53 Chloride IV 03/14/21 16:58 100 mls/hr ONCE ONE Administrat
[2021-03-14 16:42] LABS: Coronavirus 19, PCR Not Detected (NotDetected); Influenza A, PCR Not Detected (NotDetected); Influenza B, PCR Not Detected (NotDetected)
--- NOTE | 2021-03-14 16:59 | PC.NURSE ---
attempting iv access, pt difficult iv stick
--- NOTE | 2021-03-14 17:30 | PC.NURSE ---
VITAL SIGNS DEFERRED WHILE ATTEMPTING IV ACCESS
[2021-03-14 18:00] LABS: Basophils % 0.3 % (0.1-2.0); Eosinophils # 0.3 K/mm3 (0.0-0.4); Eosinophils % 2.5 % (0.1-12.0); Hematocrit 30.3 % (37.0-47.0); Hemoglobin 9.9 g/dL (12.2-16.2); Lymphocytes # 1.6 K/mm3 (0.7-4.5); Lymphocytes % 12.6 % (10-50); Mean Corpuscular HGB Conc 32.6 g/dL (31.8-35.4); Mean Corpuscular Hemoglobin 33.2 pg (27.0-31.2); Mean Corpuscular Volume 101.6 fl (81-99); Mean Platelet Volume 7.3 fl (7.4-10.4); Monocytes # 0.6 K/mm3 (0.1-1.0); Neutrophils # 9.8 K/mm3 (1.8-7.8); Neutrophils % 79.5 % (37.0-80.0); Platelet Count 356 K/mm3 (142-424); Red Blood Count 2.98 M/mm3 (4.20-5.40); Red Cell Distribution Width 13.7 % (11.5-17.5); White Blood Count 12.3 K/mm3 (4.8-10.8)
[2021-03-14 18:05] LABS: VBG Base Excess -3.7 mmol/L (-2.4-2.3); VBG HCO3 22.7 mmol/L (23-30); VBG Oxygen Saturation 82.7 % (50-70); VBG PCO2 46.7 mmol/L (35-51); VBG PO2 50.1 mmol/L (28-40); VBG Total CO2 24.1 mmol/L (23-27)
[2021-03-14 18:10] LABS: Chloride 107 mmol/L (98-107)
[2021-03-14 18:11] LABS: Potassium 3.3 mmoL/L (3.5-5.1); Sodium 139 mmol/L (136-145)
[2021-03-14 18:13] LABS: Blood Urea Nitrogen 6 mg/dl (7-17); Creatinine Clearance Estimated 130 mL/min (50-200); Estimated Glomerular Filt Rate 85 ml/min (>60); GFR (African American) 103 ML/MIN (>60)
[2021-03-14 18:14] LABS: Anion Gap 9.3 mEq/L (5-15); Calcium 8.5 mg/dl (8.4-10.2); Carbon Dioxide 26 mmol/L (22.0-30.0); Glucose 108 mg/dl (74-100)
[2021-03-14 18:19] LABS: D-Dimer 0.98 ug/mL (0.0-0.5)
[2021-03-14 18:25] LABS: NT Pro Brain Natriuretic Pep. 1810 pg/mL (0-125)
[2021-03-14 18:42] LABS: Troponin I < 0.01 ng/ml (0.00-0.034)
--- NOTE | 2021-03-14 18:46 | CT_ITS ---
PROCEDURE INFORMATION: Exam: CTA Chest With Contrast Exam date and time: 03/14/2021 6:46 PM Age: 60 years old Clinical indication: Shortness of breath; Patient HX: Soa-- d-dimer .98--- hypoxia; Additional info: Eval for pulmonary embolism, hypoxia TECHNIQUE: Imaging protocol: Computed tomographic angiography of the chest with contrast. 3D rendering (Not supervised by radiologist): MIP and/or 3D reconstructed images were created by the technologist. Radiation optimization: All CT scans at this facility use at least one of these dose optimization techniques: automated exposure control; mA and/or kV adjustment per patient size (includes targeted exams where dose is matched to clinical indication); or iterative reconstruction. Contrast material: ISOVUE 370; Contrast volume: 110 ml; Contrast route: INTRAVENOUS (IV); COMPARISON: CT ANGIO CHEST 09/18/2020 1:01 AM FINDINGS: Pulmonary arteries: No acute pulmonary emboli. Aorta: Unremarkable. No aortic aneurysm. No aortic dissection. Lungs: Moderate ground-glass opacities throughout the lungs bilaterally, somewhat sparing the posterior lower lobes, similar to comparison study. Pleural spaces: Unremarkable. No pneumothorax. No pleural effusion. Heart: Unremarkable. No cardiomegaly. No pericardial effusion. Lymph nodes: Multiple mildly enlarged lymph nodes throughout the mediastinum, the largest within the pretracheal region measuring approximately 16 mm in diameter, similar to comparison study. Gallbladder and bile ducts: Gallbladder surgically absent. Spleen: Splenic calcifications, compatible with prior granulomatous disease. Bones/joints: Unremarkable. No acute fracture. Soft tissues: Unremarkable. IMPRESSION: 1. No acute pulmonary emboli. 2. Moderate ground-glass opacities throughout the lungs bilaterally, somewhat sparing the posterior lower lobes, similar to comparison study. Given chronicity, process such as hypersensitivity pneumonitis or cellular nonspecific interstitial pneumonitis most likely. 3. Multiple mildly enlarged lymph nodes throughout the mediastinum, the largest within the pretracheal region measuring approximately 16 mm in diameter, similar to comparison study. Lymph nodes likely reactive and probably related to pulmonary parenchymal abnormalities such as chronic hypersensitivity pneumonitis or non-specific interstitial pneumonitis.
--- NOTE | 2021-03-14 18:46 | PC.NURSE ---
Dr Nikole bhatia
--- NOTE | 2021-03-14 20:11 | PC.NURSE ---
Called admission to check on status of preparing admission packet.
--- NOTE | 2021-03-14 20:19 | PC.NURSE ---
Let Antionette Aguilar RN know pt and admission folder was ready. Report was called by Diony Fontenot RN @ [phone]
--- NOTE | 2021-03-14 20:26 | PC.NURSE ---
patient up to floor via wheelchair.
[2021-03-14 21:09] LABS: Lactic Acid 1.2 mmol/L (0.7-2.1)
[2021-03-14 23:09] LABS: Troponin I < 0.01 ng/ml (0.00-0.034)
[2021-03-15] VITALS (12 sets, daily range): BP systolic 104–120; BP diastolic 56–69; PULSE 65–89; RESP 16–18; TEMP 36.1–36.7; O2SAT 91–100; BMI 37.0; BMI 37.3
[2021-03-15 01:18] LABS: Troponin I < 0.01 ng/ml (0.00-0.034)
--- NOTE | 2021-03-15 03:57 | PC.NURSE ---
pt admitted for copd. currently on 2LNC. telemetry reads NSR. ambulates independently. pt has been ordered diabetic diet and fsbs. pt reports that she is not a diabetic. iv patent. no complaints voiced through shift. call light in reach. will continue to monitor
[2021-03-15 06:33] LABS: Basophils % 0.3 % (0.1-2.0); Eosinophils # 0.1 K/mm3 (0.0-0.4); Eosinophils % 1.2 % (0.1-12.0); Hematocrit 30.4 % (37.0-47.0); Hemoglobin 10.1 g/dL (12.2-16.2); Lymphocytes # 0.7 K/mm3 (0.7-4.5); Lymphocytes % 9.7 % (10-50); Mean Corpuscular HGB Conc 33.3 g/dL (31.8-35.4); Mean Corpuscular Hemoglobin 33.5 pg (27.0-31.2); Mean Corpuscular Volume 100.5 fl (81-99); Mean Platelet Volume 8.2 fl (7.4-10.4); Monocytes # 0.1 K/mm3 (0.1-1.0); Monocytes % 1.5 % (1.7-9.3); Neutrophils # 6.3 K/mm3 (1.8-7.8); Neutrophils % 87.3 % (37.0-80.0); Platelet Count 309 K/mm3 (142-424); Red Blood Count 3.02 M/mm3 (4.20-5.40); Red Cell Distribution Width 13.9 % (11.5-17.5); White Blood Count 7.2 K/mm3 (4.8-10.8)
[2021-03-15 06:36] LABS: MANUAL DIFFERENTIAL MANUAL DIFFERENTIAL (MANUAL DIFF)
[2021-03-15 06:37] LABS: Chloride 112 mmol/L (98-107)
[2021-03-15 06:38] LABS: Potassium 3.6 mmoL/L (3.5-5.1); Sodium 139 mmol/L (136-145)
[2021-03-15 06:40] LABS: Blood Urea Nitrogen 8 mg/dl (7-17); Creatinine Clearance Estimated 155 mL/min (50-200); Estimated Glomerular Filt Rate 102 ml/min (>60); GFR (African American) 123 ML/MIN (>60)
[2021-03-15 06:41] LABS: Anion Gap 8.6 mEq/L (5-15); Calcium 8.8 mg/dl (8.4-10.2); Carbon Dioxide 22 mmol/L (22.0-30.0); Glucose 203 mg/dl (74-100)
--- NOTE | 2021-03-15 07:17 | HMH.HP ---
*Admission Date: 03/14/21 *Chief complaint: Shortness of breath *History of present illness: 60-year-old female presented to the emergency department with shortness of breath. Patient had been short of breath for the last 3 days with home O2 monitoring revealing sats in the low 80s. Patient was living with a friend who uses supplemental oxygen and she began sharing the supplemental oxygen with the patient. Patient's O2 sats would respond to this. Yesterday the patient stop by the office to address a previously identified elevated white blood cell count and mentioned the symptoms. Patient's O2 sat in our office was in the low 80s and she was sent to the emergency department. Patient denies fever. She has COPD. She denies sensation of wheezing but admits she had used her albuterol inhaler more. She denies cough productive of sputum. In the ER patient was hypoxic with chest x-ray suggestive of possible pneumonia. Exam revealed wheezing. Patient was admitted for COPD exacerbation with acute respiratory failure [facility] History I have reviewed the patient's past medical history: Yes Medical History: Reports:: Anxiety, Atherosclerotic Heart Disease, Congestive Heart Failure, Chronic Obstructive Pulmonary Disease (COPD), Coronary Artery Disease, Depression, Gall Bladder Disease, Gastroesophageal Reflux Disease(GERD), Hyperlipidemia, Hypertension, Lung Disease, Migraine, MRSA, Myocardial Infarction Denies:: Cancer, Diabetes Mellitus Type 1, Diabetes Mellitus Type 2, Internal Pacemaker, Seizures *Have you ever received a pneumonia vaccine?: Yes *Have you received a flu vaccine this season?: No Other Medical History: Reports: Anemia, Arthritis, Fibromyalgia, Hypothyroidism, Liver Disease, Sinus Problems, Thyroid Disease, Other. Denies: Blood Transfusion Reaction Laterality Cases: Right: Other, Bilateral: Carpal Tunnel Release, Tonsillectomy Other Surgeries: Yes: No Previous Surgery, Angiogram, Angioplasty, Appendectomy, Cardiac Catheterization, Cholecystectomy, Colonoscopy, Dilation and Curettage, EGD, Hysterectomy-Total, Other. No: Pacemaker Amputation: No Fractures: Yes (right ankle/tibia) - *Social History Smoking Status: Current every day smoker Tobacco Type: cigarettes # Packs/Day (cigarettes): 1 #Yrs smoked (if former smoker): 1 Alcohol Intake: never Alcohol Intake Frequency:: holidays/special occasions only Substance Use Type: opiates *Occupational Status:: unemployed Housing: house Household Members: family *Travel in the last 8 weeks: None - Psychiatric History Pschychiatric History:: Reports:: Anxiety, Depression Family Hx:: Anemia, Asthma, Cancer, Coronary Artery Disease, Hyperlipidemia, Hypertension, Stroke, Alcoholism Review of Systems - Constitutional Denies anorexia - Eyes Denies blind spots - ENT Denies abnormal hearing - *Cardiovascular Denies chest pain - *Respiratory Reports shortness of breath, Denies chest congestion - *Gastrointestinal Denies belching, Denies bloating - *Genitourinary Denies difficulty urinating - *Musculoskeletal Reports joint pain, Denies abnormal walking - Integumentary/Breasts Denies hair loss - *Neurologic Denies abnormal walking - Psychiatric Reports abnormal sleep pattern Meds Home Medications Medication Instructions Recorded Confirmed Type Potassium Chloride [Micro-K 10mEq 20 meq PO BID #60 capsule.er 07/31/19 03/14/21 Rx cap] Furosemide [Furosemide 40MG tAB*] 40 mg PO NEEDED PRN 08/31/19 03/14/21 History levothyroxine 75 mcg tablet 75 mcg PO DAILY #90 tab 10/30/19 03/14/21 Rx albuterol sulfate 90 mcg/actuation 2 inh INHALATION TID PRN #18 g 05/03/20 03/14/21 Rx aerosol inhaler Trazodone HCl 100 mg PO HS 07/13/20 03/14/21 History omeprazole 40 mg capsule,delayed 40 mg PO DAILY #90 cap 09/20/20 03/14/21 Rx release Ibuprofen 800 mg PO TID PRN 12/28/20 03/14/21 History gabapentin 800 mg tablet 800 mg PO TID #90 tab 02/09/21 03/14/21 Rx Promethazi
--- NOTE | 2021-03-15 07:52 | HMH.PHAVTE ---
[facility] Pharmacy VTE Monitoring - Patient Demographics Admission date: 03/15/21 Report Date: 03/15/21 Time: 07:52 Allergies/Adverse Reactions: Patient Allergies Cephalosporins Allergy (Verified 02/17/21 14:13) RASH erythromycin base Allergy (Verified 02/17/21 14:13) Hives minocycline Allergy (Verified 02/17/21 14:13) RASH penicillin G Allergy (Verified 02/17/21 14:13) Hives Sulfa (Sulfonamide Antibiotics) Allergy (Verified 02/17/21 14:13) RASH Height: 1.63 m Weight: 98.571 kg Patient Problems: Current Active Problems COPD exacerbation (Acute) Pneumonia (Acute) Respiratory failure with hypoxia (Acute) COPD with exacerbation (Acute) Obstructive sleep apnea syndrome (Chronic) - VTE Risk Labs: VTE Related Lab Results Hgb 10.1 g/dL (12.2-16.2) L 03/15/21 06:20 Hct 30.4 % (37.0-47.0) L 03/15/21 06:20 Plt Count 309 K/mm3 (142-424) 03/15/21 06:20 BUN 8 mg/dl (7-17) D 03/15/21 06:20 Creatinine 0.60 mg/dl (0.52-1.04) 03/15/21 06:20 Estimated Creat Clear 155 mL/min (50-200) 03/15/21 06:20 Was VTE Risk Assessment Performed: Yes VTE Score: 8 VTE Risk Level: Moderate Risk Clinical Trial Participant: No - Prophylaxis VTE Prophylaxis Ordered?: Yes Types of VTE Prophylaxis: TEDS Knee High, Pharmacological Pharmacologic Type: Heparin
--- NOTE | 2021-03-15 08:12 | HMH.PHAINT ---
verified home medication list using clinic pharmacy list and pt interview
[2021-03-15 08:50] LABS: Lymphocytes % 12 % (10-50); Monocytes % 3 % (2-9); Neutrophils % 85 % (42-76); Platelet Estimate Normal; Total Cells Counted 100
[2021-03-15 08:51] LABS: Hypochromasia 1+; Macrocytosis 1+
[2021-03-15 11:39] LABS: POC Glucose,Bedside 250 (70-110)
[2021-03-15 11:39] LABS: POC Glucose,Bedside 214 (70-110)
--- NOTE | 2021-03-15 16:40 | PC.NURSE ---
No acute changes. Remains on 2 L O2 per nasal cannula. No s/s of resp distress. Independent w/ adl's. Voiding w/o difficulty. Skin intact. No complaints voiced. Call croft w/in reach.
[2021-03-16] VITALS: BP 105/51; PULSE 65; RESP 18; TEMP 36.5; O2SAT 95
[2021-03-16 04:00] VITALS: BP 104/76; PULSE 66; RESP 18; TEMP 36.6; O2SAT 98
--- NOTE | 2021-03-16 04:25 | PC.NURSE ---
No acute changes throughout shift. Patient states I am not a diabetic . Patient has refused all blood sugar checks, prescribed insulin and heparin injections. Patient's oxygen sat WNL; no supplemental oxygen needed throughout shift. VSS. Will continue to monitor.
[2021-03-16 05:30] VITALS: BMI 38.3
[2021-03-16 06:01] VITALS: PULSE 65; PULSE 68; O2SAT 92
[2021-03-16 07:28] VITALS: BP 131/76; PULSE 66; RESP 16; TEMP 36.5; O2SAT 98
--- NOTE | 2021-03-16 07:32 | HMH.DCSUM ---
General - General Admission date:: 03/14/21 Discharge date: 03/16/21 HPI HPI: 60-year-old female presented to the emergency department with shortness of breath. Patient had been short of breath for the last 3 days with home O2 monitoring revealing sats in the low 80s. Patient was living with a friend who uses supplemental oxygen and she began sharing the supplemental oxygen with the patient. Patient's O2 sats would respond to this. Yesterday the patient stop by the office to address a previously identified elevated white blood cell count and mentioned the symptoms. Patient's O2 sat in our office was in the low 80s and she was sent to the emergency department. Patient denies fever. She has COPD. She denies sensation of wheezing but admits she had used her albuterol inhaler more. She denies cough productive of sputum. In the ER patient was hypoxic with chest x-ray suggestive of possible pneumonia. Exam revealed wheezing. Patient was admitted for COPD exacerbation with acute respiratory failure Hospital Course Hospital Course: Patient was admitted and placed on IV steroids, aerosols, IV azithromycin and meropenem due to possibility of pneumonia. On lung exam patient had diffuse wheezing and rhonchi. Patient responded nicely to aerosols and steroids and within 36 hours was free of wheezing. She did report a congested cough that was nonproductive. She did not have any fevers. Over the 36-hour course of her hospitalization patient room air O2 sat went from mid 80s to 98%. On March 16 patient was discharged home to continue steroids and oral azithromycin. Patient will follow up in the office in 1 week. Pulmonary function testing will be ordered at that time Objective Vital signs: Temp Pulse Resp BP Pulse Ox 97.7 F 66 16 131/76 98 03/16/21 07:28 03/16/21 07:28 03/16/21 07:28 03/16/21 07:28 03/16/21 07:28 no acute distress - *Routine Respiratory Exam Present: CTA bilaterally - *Routine Cardiovascular Exam Present: RRR - *Routine Abdominal Exam Present: soft, normoactive bowel sounds. Absent: tenderness Results Labs on day of discharge: Labs from last 24 hours 03/15/21 03/15/21 03/14/21 06:20 04:04 21:18 Total Counted 100 Neutrophils % (Manual) 85 H Lymphocytes % (Manual) 12 Monocytes % (Manual) 3 Platelet Estimate Normal Hypochromasia 1+ Macrocytosis 1+ POC Glucose 250 H 214 H DS: Diagnosis - Discharge Diagnosis (1) COPD with exacerbation Status: Acute (2) Respiratory failure with hypoxia Status: Acute (3) Obstructive sleep apnea syndrome Status: Chronic Discharge Plan - Patient Discharge Instructions ACTIVITY: Continue current activity DIET: continue same diet Patient Instructions: Chronic Obstructive Pulmonary Disease, DI for Pneumonia -- Adult, DI for Respiratory Failure, DI for Hypoxia - Follow up Plan Follow up with: Jason Khan MD [Primary Care Provider] - 03/21/21 11:00 am Disposition: Home, Self-Care Condition at discharge:: Improved Home Medications: Home Medications Medication Instructions Recorded Confirmed Type Potassium Chloride [Micro-K 10mEq 20 meq PO BID #60 capsule.er 07/31/19 03/15/21 Rx cap] Furosemide [Furosemide 40MG tAB*] 40 mg PO DAILYP PRN 08/31/19 03/15/21 History levothyroxine 75 mcg tablet 75 mcg PO DAILY #90 tab 10/30/19 03/15/21 Rx albuterol sulfate 90 mcg/actuation 2 inh INHALATION TID PRN #18 g 05/03/20 03/15/21 Rx aerosol inhaler Trazodone HCl 100 mg PO HS 07/13/20 03/15/21 History omeprazole 40 mg capsule,delayed 40 mg PO DAILY #90 cap 09/20/20 03/15/21 Rx release Ibuprofen 800 mg PO TID PRN 12/28/20 03/14/21 History gabapentin 800 mg tablet 800 mg PO TID #90 tab 02/09/21 03/15/21 Rx Promethazine HCl [Phenergan 25mg 25 mg PO Q6HP PRN 03/14/21 03/15/21 History tab] Tizanidine HCl [Zanaflex 4mg 4 mg PO HS 03/14/21 03/15/21 History tablet] Azithrom
--- NOTE | 2021-03-16 07:49 | SW/DCPLANNER ---
PATIENT ADMITTED TO [facility] TO AN OBSERVATION STATUS ON 03/14.... SHE IS DISCHARGING TO HOME TODAY TO FINISH ANTIBIOTIC THERAPY FOR 3 MORE DAYS AND STEROIDS X 5 DAYS... NO HOME CARE NEEDED AT THIS TIME...
== END 2021-03-16 08:45 | disposition home or self-care (01) ==
LOC: ER 19:50 → 2ND 03-15 07:28
PROVIDERS: Admitting Provider Internal Medicine Adolescent Medicine; Emergency Provider Emergency Medicine; PCP Family Medicine; Visit Provider Family Medicine
DX: J44.1 Chronic obstructive pulmonary disease with (acute) exacerbation; J96.01 Acute respiratory failure with hypoxia; G47.33 Obstructive sleep apnea (adult) (pediatric); Z88.0 Allergy status to penicillin; Z88.2 Allergy status to sulfonamides; Z88.8 Allergy status to other drugs, medicaments and biological substances; Z79.899 Other long term (current) drug therapy
CPT/HCPCS: 36415; 71045; 71275; 80048; 82803; 82962; 83605; 83880; 84484; 85007; 85025; 85378; 87040; 93005; 94640; 94760; 94761; 96365; 96375; 99284; G0378; J0456; J2185; U0003

== ENCOUNTER 2021-03-30 13:49 | Observation (INO) | payer OTHER, SELFPAY ==
[2021-03-30] VITALS (12 sets, daily range): BP systolic 109–138; BP diastolic 52–77; PULSE 59–84; RESP 16–19; TEMP 36.6–36.9; O2SAT 88–98; BMI 35.6; BMI 37.5
--- NOTE | 2021-03-30 14:14 | HMH.EDSOB ---
ED Disposition Clinical Impression: Acute exacerbation of chronic obstructive pulmonary disease (COPD) Disposition: Still a Patient Condition on Discharge: Fair Referrals: Jason Khan MD [Primary Care Provider] - - Critical Care Critical Care Time: No Attestation: On 03/30/21, the high probability of a clinically significant, sudden or life threatening deterioration of the following system(s) required my full and direct attention, intervention and personal management. The time I documented below is in addition to time spent performing reported procedures but includes the following listed in this critical care notation. Medical Decision Making - Medical Records Medical records reviewed: Yes: I reviewed the patient's medical records. - Adolph Inquiry Pt receiving controlled substance: No Vital Signs: 03/30/21 13:49 Temperature 98.2 F Temperature Source Oral Pulse Rate [Radial] 77 Respiratory Rate 18 Blood Pressure [Right Arm] 138/66 Blood Pressure Mean [Right Arm] 90 02 Sat by Pulse Oximetry 90 L Oxygen Delivery Method Room Air - Lab Data Lab Results 03/30/21 14:15: VBG pH 7.25 L, VBG pCO2 62.4 H, VBG pO2 41.2 H, VBG HCO3 26.9, VBG Total CO2 28.8 H, VBG O2 Saturation 76.7 H, VBG Base Excess -0.3 03/30/21 15:10: WBC 14.3 H, RBC 3.49 L, Hgb 11.7 L, Hct 36.5 L, MCV 104.6 H, MCH 33.6 H, MCHC 32.1, RDW 14.0, Plt Count 377, MPV 7.7, Neut % (Auto) 83.2 H, Lymph % (Auto) 8.6 L, [place] % (Auto) 4.1, Eos % (Auto) 3.7, Baso % (Auto) 0.5, Neut # (Auto) 11.9 H, Lymph # (Auto) 1.2, [place] # (Auto) 0.6, Eos # (Auto) 0.5 H, Baso # (Auto) 0.1 03/30/21 15:10: Sodium 142, Potassium 3.9, Chloride 105, Carbon Dioxide 30, Anion Gap 10.9, BUN 9, Creatinine 0.80, Estimated Creat Clear 111, Estimated GFR 73, Est GFR ( Amer) 89, Glucose 86, Calcium 9.4, Total Bilirubin 0.5, AST 32, ALT 27, Alkaline Phosphatase 144 H, Total Protein 7.1, Albumin 3.7, Globulin 3.4 H, Albumin/Globulin Ratio 1.1 Result diagrams: 03/30/21 15:10 03/30/21 15:10 Orders (Tests/Meds): ED MEDICATIONS Generic Name Dose Route Start Last Admin Trade Name Freq PRN Reason Stop Dose Admin Levofloxacin/Dextrose 500 mg in 100 mls @ 100 mls/hr 03/30/21 15:30 03/30/21 16:00 Levaquin 500mg/100ml Premix IV 04/13/21 15:29 100 mls/hr Q24H LEN Administration Protocol Discontinued Medications Generic Name Dose Route Start Last Admin Trade Name Freq PRN Reason Stop Dose Admin Acetaminophen 1,000 mg 03/30/21 14:16 03/30/21 14:27 Acetaminophen 500mg Tab PO 03/30/21 14:17 1,000 mg ONCE ONE Administration Albuterol Sulfate 1.25 mg 03/30/21 15:18 03/30/21 15:22 Albuterol Sulfate 1.25 Mg/3 Ml Vial.Formerly [facility] 03/30/21 15:19 1.25 mg ONCE ONE Administration Albuterol/Ipratropium 3 ml 03/30/21 14:15 03/30/21 14:26 Ipratropium/Albuterol 3 Ml Formerly [facility] 03/30/21 14:16 3 ml ONCE ONE Administration Methylprednisolone Sodium Succinate 125 mg 03/30/21 14:15 03/30/21 14:27 Methylprednisolone Sod Succ 125mg Vial IM 03/30/21 14:16 125 mg ONCE ONE Administration ORDERS Category Date Time Status Rapid PCR Covid and Flu A/B Stat Lab 03/30/21 15:55 Received Medical Decision Narrative: 60-year-old female who presents with acute exacerbation of her COPD. Patient is not having chest pain on arrival and there is no other concerning findings for COPD. There is significant wheezing and prolonged expiration on exam. Chest x-ray demonstrates no obvious focal consolidation but with a white count of 14,000 she will be treated for pneumonia with Levaquin. Patient was given a DuoNeb and 125 mg IV Solu-Medrol. Following these interventions symptoms did not improve she still requiring new oxygen requirement of 3 L/min. She was given a second albuterol nebulizer treatment and following this intervention still requiring new oxygen she was admitted to the medicine service with Dr. Agustin for Dr. Khan. Resp/SOB HPI - Gener
--- NOTE | 2021-03-30 14:15 | XR_ITS ---
PROCEDURE: XR CHEST PORTABLE CLINICAL HISTORY: dyspnea COMPARISON: CR XR CHEST PORTABLE from 07/20/2020 CR XR CHEST PORTABLE from 09/18/[address] ANGIO CHEST from 03/14/2021 CR XR CHEST PORTABLE from 03/14/2021 FINDINGS: There is mild cardiomegaly without failure. The lungs are clear without infiltrates, suspicious nodules, or pleural effusions. No acute bony abnormalities. IMPRESSION: No acute findings. Dictated by: Paresh Li MD 03/30/2021 15:02 Paresh Li MD in [place] 03/30/2021 15:02
[2021-03-30 15:21] LABS: Basophils # 0.1 K/mm3 (0-0.2); Basophils % 0.5 % (0.1-2.0); Eosinophils # 0.5 K/mm3 (0.0-0.4); Eosinophils % 3.7 % (0.1-12.0); Hematocrit 36.5 % (37.0-47.0); Hemoglobin 11.7 g/dL (12.2-16.2); Lymphocytes # 1.2 K/mm3 (0.7-4.5); Lymphocytes % 8.6 % (10-50); Mean Corpuscular HGB Conc 32.1 g/dL (31.8-35.4); Mean Corpuscular Hemoglobin 33.6 pg (27.0-31.2); Mean Corpuscular Volume 104.6 fl (81-99); Mean Platelet Volume 7.7 fl (7.4-10.4); Monocytes # 0.6 K/mm3 (0.1-1.0); Monocytes % 4.1 % (1.7-9.3); Neutrophils # 11.9 K/mm3 (1.8-7.8); Neutrophils % 83.2 % (37.0-80.0); Platelet Count 377 K/mm3 (142-424); Red Blood Count 3.49 M/mm3 (4.20-5.40); White Blood Count 14.3 K/mm3 (4.8-10.8)
[2021-03-30 15:25] LABS: Chloride 105 mmol/L (98-107)
[2021-03-30 15:27] LABS: Alanine Aminotransferase 27 U/L (12-78); Albumin Level 3.7 g/dl (3.5-5.0); Albumin/Globulin Ratio 1.1 (1.1-1.8); Alkaline Phosphatase 144 U/L (38-126); Anion Gap 10.9 mEq/L (5-15); Aspartate Amino Transferase 32 U/L (14-36); Bilirubin,Total 0.5 mg/dl (0.2-1.3); Blood Urea Nitrogen 9 mg/dl (7-17); Calcium 9.4 mg/dl (8.4-10.2); Carbon Dioxide 30 mmol/L (22.0-30.0); Creatinine Clearance Estimated 111 mL/min (50-200); Estimated Glomerular Filt Rate 73 ml/min (>60); GFR (African American) 89 ML/MIN (>60); Globulin 3.4 g/dL (1.3-3.2); Glucose 86 mg/dl (74-100); Potassium 3.9 mmoL/L (3.5-5.1); Sodium 142 mmol/L (136-145); Total Protein,Serum 7.1 g/dl (6.3-8.2)
[2021-03-30 15:33] LABS: VBG Base Excess -0.3 mmol/L (-2.4-2.3); VBG HCO3 26.9 mmol/L (23-30); VBG Oxygen Saturation 76.7 % (50-70); VBG PH 7.25 mmol/L (7.31-7.41); VBG PO2 41.2 mmol/L (28-40); VBG Total CO2 28.8 mmol/L (23-27)
[2021-03-30 15:37] LABS: VBG PCO2 62.4 mmol/L (35-51)
--- NOTE | 2021-03-30 15:51 | PC.NURSE ---
Dr Agustin speaking with Dr Lockwood
[2021-03-30 15:59] LABS: Coronavirus 19, PCR Not Detected (NotDetected); Influenza A, PCR Not Detected (NotDetected); Influenza B, PCR Not Detected (NotDetected)
--- NOTE | 2021-03-30 16:50 | PC.NURSE ---
report called to MAYO Saldana at this time.
[2021-03-31] VITALS (11 sets, daily range): BP systolic 111–136; BP diastolic 55–80; PULSE 72–96; RESP 16–18; TEMP 36.7–37.1; O2SAT 2–96; BMI 40.8; BMI 40.6
--- NOTE | 2021-03-31 03:37 | PC.NURSE ---
No acute changes noted. Pt is currently on O2 2L NC. Pt has been up to BR this shift. Has not c/o any discomfort. Medications administered per mar. Pt was found asleep in bed with vaping device in hand. Pt was educated to not use vaping device and that this was a smoke free hospital. Pt stated that she wouldn't use it. She declined to let staff lock device up. No other concerns. Will continue to monitor.
[2021-03-31 06:13] LABS: Basophils % 0.2 % (0.1-2.0); Eosinophils # 0.1 K/mm3 (0.0-0.4); Eosinophils % 0.9 % (0.1-12.0); Hematocrit 38.1 % (37.0-47.0); Hemoglobin 12.3 g/dL (12.2-16.2); Lymphocytes # 0.6 K/mm3 (0.7-4.5); Lymphocytes % 9.9 % (10-50); Mean Corpuscular HGB Conc 32.1 g/dL (31.8-35.4); Mean Corpuscular Volume 105.6 fl (81-99); Mean Platelet Volume 8.8 fl (7.4-10.4); Monocytes # 0.1 K/mm3 (0.1-1.0); Monocytes % 1.5 % (1.7-9.3); Neutrophils # 5.4 K/mm3 (1.8-7.8); Neutrophils % 87.4 % (37.0-80.0); Platelet Count 322 K/mm3 (142-424); Red Blood Count 3.61 M/mm3 (4.20-5.40); White Blood Count 6.2 K/mm3 (4.8-10.8)
--- NOTE | 2021-03-31 06:16 | PC.NURSE ---
Spoke with daughter on phone. Pt's son will bring home medications in for reconciliation.
[2021-03-31 06:21] LABS: MANUAL DIFFERENTIAL MANUAL DIFFERENTIAL (MANUAL DIFF)
[2021-03-31 06:37] LABS: Anion Gap 14.2 mEq/L (5-15); Blood Urea Nitrogen 10 mg/dl (7-17); Calcium 9.6 mg/dl (8.4-10.2); Carbon Dioxide 26 mmol/L (22.0-30.0); Chloride 104 mmol/L (98-107); Creatinine Clearance Estimated 146 mL/min (50-200); Estimated Glomerular Filt Rate 85 ml/min (>60); GFR (African American) 103 ML/MIN (>60); Glucose 202 mg/dl (74-100); Potassium 4.2 mmoL/L (3.5-5.1); Sodium 140 mmol/L (136-145)
[2021-03-31 06:38] LABS: Anisocytosis 1+; Lymphocytes % 16 % (10-50); Macrocytosis 1+; Monocytes % 1 % (2-9); Neutrophils % 83 % (42-76); Platelet Estimate Normal; Total Cells Counted 100
--- NOTE | 2021-03-31 07:40 | HMH.HP ---
*Admission Date: 04/06/21 *Chief complaint: Shortness of breath *History of present illness: 60-year-old female with history of COPD presented to the emergency department after rapid onset and progression of shortness of breath and wheezing that began late Saturday night. Patient denies fevers. She had increased cough. She would use home albuterol and will get 3 to 4 hours of relief. Patient presented to the ER. She was given a single DuoNeb treatment with minimal improvement. Patient had documented hypoxia with an O2 sat of 88% on room air. Decision was made to admit the patient for COPD exacerbation. This morning she reports starting to feel better. [facility] History I have reviewed the patient's past medical history: Yes Medical History: Reports:: Anxiety, Atherosclerotic Heart Disease, Congestive Heart Failure, Chronic Obstructive Pulmonary Disease (COPD), Coronary Artery Disease, Depression, Gall Bladder Disease, Gastroesophageal Reflux Disease(GERD), Hyperlipidemia, Hypertension, Lung Disease, Migraine, MRSA, Myocardial Infarction Denies:: Cancer, Diabetes Mellitus Type 1, Diabetes Mellitus Type 2, Internal Pacemaker, Seizures *Have you ever received a pneumonia vaccine?: Yes *Have you received a flu vaccine this season?: No Other Medical History: Reports: Anemia, Arthritis, Fibromyalgia, Hypothyroidism, Liver Disease, Sinus Problems, Thyroid Disease, Other. Denies: Blood Transfusion Reaction Laterality Cases: Right: Other, Bilateral: Carpal Tunnel Release, Tonsillectomy Other Surgeries: Yes: No Previous Surgery, Angiogram, Angioplasty, Appendectomy, Cardiac Catheterization, Cholecystectomy, Colonoscopy, Dilation and Curettage, EGD, Hysterectomy-Total, Other. No: Pacemaker Amputation: No Fractures: Yes (right ankle/tibia) - *Social History Last grade of school completed: High school graduate Smoking Status: Current every day smoker Tobacco Type: cigarettes # Packs/Day (cigarettes): 1 #Yrs smoked (if former smoker): 1 Alcohol Intake: never Alcohol Intake Frequency:: holidays/special occasions only Substance Use Type: opiates *Occupational Status:: unemployed Housing: house Household Members: friend(s) *Travel in the last 8 weeks: None - Psychiatric History Pschychiatric History:: Reports:: Anxiety, Depression Family Hx:: No significant family history Review of Systems - Constitutional Denies anorexia, Denies body ache(s) - Eyes Denies blurry vision - ENT Denies abnormal hearing, Denies bleeding gums - *Cardiovascular Denies chest pain at rest - *Respiratory Reports change in phlegm color, Reports chest congestion, Reports shortness of breath - *Gastrointestinal Denies belching - *Genitourinary Denies painful urination - *Musculoskeletal Reports abnormal walking - Integumentary/Breasts Denies hair loss - *Neurologic Denies abnormal walking - Psychiatric Reports abnormal sleep pattern Meds Home Medications Medication Instructions Recorded Confirmed Type Potassium Chloride [Micro-K 10mEq 20 meq PO BID #60 capsule.er 07/31/19 03/30/21 Rx cap] Furosemide [Furosemide 40MG tAB*] 40 mg PO DAILYP PRN 08/31/19 03/30/21 History levothyroxine 75 mcg tablet 75 mcg PO DAILY #90 tab 10/30/19 03/30/21 Rx albuterol sulfate 90 mcg/actuation 2 inh INHALATION TID PRN #18 g 05/03/20 03/30/21 Rx aerosol inhaler Trazodone HCl 100 mg PO HS 07/13/20 03/30/21 History omeprazole 40 mg capsule,delayed 40 mg PO DAILY #90 cap 09/20/20 03/30/21 Rx release Ibuprofen 800 mg PO TID PRN 12/28/20 03/30/21 History gabapentin 800 mg tablet 800 mg PO TID #90 tab 02/09/21 03/30/21 Rx Promethazine HCl [Phenergan 25mg 25 mg PO Q6HP PRN 03/14/21 03/30/21 History tab] Tizanidine HCl [Zanaflex 4mg 4 mg PO HS 03/14/21 03/30/21 History tablet] Allergies Allergy/AdvReac Type Severity Reaction Status Date / Time Cephalosporins Allergy RASH Verified 02/17/21 14:13 erythromycin base Allergy Hives Verified
--- NOTE | 2021-03-31 08:01 | P.CONPHA_ITS ---
[facility] Pharmacy VTE Monitoring - Patient Demographics Admission date: 03/31/21 Report Date: 03/31/21 Time: 08:01 Allergies/Adverse Reactions: Patient Allergies Cephalosporins Allergy (Verified 02/17/21 14:13) RASH erythromycin base Allergy (Verified 02/17/21 14:13) Hives minocycline Allergy (Verified 02/17/21 14:13) RASH penicillin G Allergy (Verified 02/17/21 14:13) Hives Sulfa (Sulfonamide Antibiotics) Allergy (Verified 02/17/21 14:13) RASH Height: 1.63 m Weight: 108.522 kg Patient Problems: Current Active Problems COPD exacerbation (Acute) - VTE Risk Labs: VTE Related Lab Results Hgb 12.3 g/dL (12.2-16.2) 03/31/21 05:38 Hct 38.1 % (37.0-47.0) 03/31/21 05:38 Plt Count 322 K/mm3 (142-424) 03/31/21 05:38 BUN 10 mg/dl (7-17) 03/31/21 05:38 Creatinine 0.70 mg/dl (0.52-1.04) 03/31/21 05:38 Estimated Creat Clear 146 mL/min (50-200) 03/31/21 05:38 VTE Risk Level: Low Risk Clinical Trial Participant: No - Prophylaxis VTE Prophylaxis Ordered?: Yes Types of VTE Prophylaxis: TEDS Knee High, Pharmacological Pharmacologic Type: Enoxaparin
--- NOTE | 2021-03-31 08:09 | HMH.PHAINT ---
MEDICATION RECONCILIATION COMPLETE USING EXTERNAL PHARMACY FILL HX AND DISCHARGE SUMMARY FROM 03/16/21
--- NOTE | 2021-03-31 15:14 | PC.NURSE ---
Pt is alert and oriented x4. Wheezes noted throughout all lung kent. She has been weaned from 2L NC to RA w/O2 sats in the mid 90's. She has ambulated to the bathroom independently. She has denied any complaints. She is currently resting in bed watching TV. Will continue to monitor.
[2021-04-01] VITALS: BP 103/63; PULSE 83; RESP 18; TEMP 37; O2SAT 91
[2021-04-01 04:00] VITALS: BP 125/65; PULSE 81; RESP 18; TEMP 36.7; O2SAT 98
--- NOTE | 2021-04-01 04:59 | PC.NURSE ---
Patient rested well throughout shift. Patient was pleasant throughout shift. Patient remained on room air throughout shift. Good urine output. patient voiced no further concerns to RN. VSS
[2021-04-01 05:00] VITALS: BMI 39.2
[2021-04-01 06:30] VITALS: PULSE 70; O2SAT 100
[2021-04-01 07:50] VITALS: BP 140/65; PULSE 78; RESP 17; TEMP 36.9; O2SAT 97
--- NOTE | 2021-04-01 08:06 | HMH.DCSUM ---
General - General Admission date:: 03/30/21 Discharge date: 04/01/21 HPI HPI: 60-year-old female with history of COPD presented to the emergency department after rapid onset and progression of shortness of breath and wheezing that began late Saturday night. Patient denies fevers. She had increased cough. She would use home albuterol and will get 3 to 4 hours of relief. Patient presented to the ER. She was given a single DuoNeb treatment with minimal improvement. Patient had documented hypoxia with an O2 sat of 88% on room air. Decision was made to admit the patient for COPD exacerbation. This morning she reports starting to feel better. Hospital Course Hospital Course: Patient was admitted and placed on intravenous Solu-Medrol, duo nebs, IV Levaquin, supplemental oxygen for COPD exacerbation. In approximately 24 hours patient was able to be weaned from her supplemental oxygen. On the morning of April 01 patient's lung exam had improved in regards to aeration although she still had some wheezing. She was maintaining sats in the mid 90s on room air. Patient was discharged home. Patient will follow up in the office on April 05 Objective Vital signs: Temp Pulse Resp BP Pulse Ox 98.4 F 78 17 140/65 97 04/01/21 07:50 04/01/21 07:50 04/01/21 07:50 04/01/21 07:50 04/01/21 07:50 no acute distress - *Routine Respiratory Exam Present: wheezes - *Routine Cardiovascular Exam Present: RRR DS: Diagnosis - Discharge Diagnosis (1) COPD exacerbation Status: Acute (2) Morbid obesity due to excess calories Status: Acute (3) Cigarette smoker Status: Acute Discharge Plan - Patient Discharge Instructions ACTIVITY: Continue current activity DIET: continue same diet Patient Instructions: Pneumonia-Adult, DI for Chronic Obstructive Pulmonary Disease, DI for Pneumonia -- Adult - Follow up Plan Follow up with: Jason Khan MD [Primary Care Provider] - Disposition: Home, Self-Care Condition at discharge:: Improved Home Medications: Home Medications Medication Instructions Recorded Confirmed Type Potassium Chloride [Micro-K 10mEq 20 meq PO BID #60 capsule.er 07/31/19 03/30/21 Rx cap] Furosemide [Furosemide 40MG tAB*] 40 mg PO DAILYP PRN 08/31/19 03/30/21 History levothyroxine 75 mcg tablet 75 mcg PO DAILY #90 tab 10/30/19 03/30/21 Rx albuterol sulfate 90 mcg/actuation 2 inh INHALATION TID PRN #18 g 05/03/20 03/30/21 Rx aerosol inhaler Trazodone HCl 100 mg PO HS 07/13/20 03/30/21 History omeprazole 40 mg capsule,delayed 40 mg PO DAILY #90 cap 09/20/20 03/30/21 Rx release Ibuprofen 800 mg PO TID PRN 12/28/20 03/30/21 History gabapentin 800 mg tablet 800 mg PO TID #90 tab 02/09/21 03/30/21 Rx Promethazine HCl [Phenergan 25mg 25 mg PO Q6HP PRN 03/14/21 03/30/21 History tab] Tizanidine HCl [Zanaflex 4mg 4 mg PO HS 03/14/21 03/30/21 History tablet] buPROPion HCL [Bupropion HCl Sr] 150 mg PO BID #60 tab.er.12h 04/01/21 Rx predniSONE [Prednisone 20mg 20 mg PO DIRECTED #18 tab 04/01/21 Rx Tab] Prescriptions/Medication Reconciliation: New Fluticasone/Salmeterol [Advair 250/50mcg Diskus] 1 puffs IH BIDRT puff predniSONE [Prednisone 20mg Tab] 20 mg PO DIRECTED #18 tab buPROPion HCL [Bupropion HCl Sr] 150 mg PO BID #60 tab.er.12h Continued levothyroxine 75 mcg tablet 75 mcg PO DAILY #90 tab albuterol sulfate 90 mcg/actuation aerosol inhaler 2 inh INHALATION TID PRN #18 g PRN Reason: Shortness Of Breath gabapentin 800 mg tablet 800 mg PO TID #90 tab omeprazole 40 mg capsule,delayed release 40 mg PO DAILY #90 cap Potassium Chloride [Micro-K 10mEq cap] 20 meq PO BID #60 capsule.er Furosemide [Furosemide 40MG tAB*] 40 mg PO DAILYP PRN PRN Reason: Edema Promethazine HCl [Phenergan 25mg tab] 25 mg PO Q6HP PRN PRN Reason: Nausea And Vomiting Tizanidine HCl [Zanaflex 4
== END 2021-04-01 13:40 | disposition home or self-care (01) ==
LOC: ER 16:25 → 2ND 18:23
PROVIDERS: Admitting Provider Internal Medicine Adolescent Medicine; Emergency Provider Student in an Organized Health Care Education/Training Program; PCP Family Medicine; Visit Provider Family Medicine
DX: J44.1 Chronic obstructive pulmonary disease with (acute) exacerbation (principal); I25.10 Atherosclerotic heart disease of native coronary artery without angina pectoris; I11.0 Hypertensive heart disease with heart failure; I50.9 Heart failure, unspecified; G43.909 Migraine, unspecified, not intractable, without status migrainosus; Z79.899 Other long term (current) drug therapy; Z88.8 Allergy status to other drugs, medicaments and biological substances; K21.9 Gastro-esophageal reflux disease without esophagitis; E03.9 Hypothyroidism, unspecified
CPT/HCPCS: 71045; 80048; 80053; 82803; 85007; 85025; 94640; 94760; 96365; 96375; 99284; 99291; G0378; J1956; U0003

== ENCOUNTER → 2021-04-19 16:06 | Outpatient (CLI) | payer OTHER, SELFPAY ==
--- NOTE | 2021-04-19 16:13 | XR_ITS ---
PROCEDURE: XR ANKLE WT BEARING RT MIN 3V CLINICAL INDICATION: Rt ankle pain COMPARISON: DX 1-ANKLE 3V-RT from 07/27/2020 CR XR ANKLE RT MIN 3V from 08/08/2020 CR XR ANKLE RT MIN 3V from 09/05/2020 CR XR ANKLE WT BEARING RT MIN 3V from 10/14/2020 FINDINGS: There is cortical irregularity of the distal fibula/lateral malleolus with minor adjacent callus formation. There is mild generalized osteopenia is noted. Postsurgical changes with internal fixation of the medial malleolus. Degenerative changes of the ankle joint is noted. Evidence of multiple lucencies noted in the distal fibula consistent with known hardware removal. Minor degenerative changes of the distal tibial fibular joint. IMPRESSION: Findings are suggestive of healing fracture of the distal fibula. Postsurgical changes of the medial malleolus. Dictated by: Annabelle Hughes 04/20/2021 14:46 Annabelle Hughes in [place] 04/20/2021 14:46
== END ==
PROVIDERS: PCP Family Medicine; Visit Provider Orthopaedic Surgery
DX: M25.571 Pain in right ankle and joints of right foot (principal); W19.XXXA Unspecified fall, initial encounter
CPT/HCPCS: 73610

== ENCOUNTER → 2021-04-28 13:46 | Outpatient (CLI) | payer OTHER, SELFPAY ==
--- NOTE | 2021-04-28 13:53 | XR_ITS ---
PROCEDURE: XR ANKLE RT MIN 3V CLINICAL INDICATION: RT ankle fx Follow-up fracture COMPARISON: CR XR ANKLE RT MIN 3V from 08/08/2020 CR XR ANKLE RT MIN 3V from 09/05/2020 CR XR ANKLE WT BEARING RT MIN 3V from 10/14/2020 CR XR ANKLE WT BEARING RT MIN 3V from 04/19/2021 FINDINGS: The study is obtained through a cast. There are 2 screws within the medial malleolar region as before. Oblique distal fibular fracture is present with minimal lateral displacement of the distal fracture fragment. There is some minimal widening of the ankle mortise. IMPRESSION: Status post closed reduction distal fibular fracture as described above Dictated by: Paresh Li MD 04/28/2021 16:02 Paresh Li MD in [place] 04/28/2021 16:02
== END ==
PROVIDERS: PCP Family Medicine; Visit Provider Orthopaedic Surgery
DX: S82.891A Other fracture of right lower leg, initial encounter for closed fracture (principal)
CPT/HCPCS: 73610

== ENCOUNTER → 2021-05-09 09:21 | Outpatient (CLI) | payer OTHER, SELFPAY ==
--- NOTE | 2021-05-09 10:06 | XR_ITS ---
PROCEDURE: XR DEXA AXIAL SKELETON CLINICAL HISTORY: right ankle fracture x 2 COMPARISON: No exams were available for comparison FINDINGS: The right hip BMD is 0.872 with a T-score of -0.6. The left hip BMD is 0.771 with a T-score of -0.7. The lumbar spine BMD is 1.101 with a T-score of 0.5. IMPRESSION: This patient is considered normal according to the World Health Organization criteria. Fracture risk is low. Based on these results a follow-up exam is recommended in 2 year. Dictated by: Paresh Li MD 05/09/2021 18:00 Paresh Li MD in [place] 05/09/2021 18:00
== END ==
PROVIDERS: PCP Family Medicine; Visit Provider Orthopaedic Surgery
DX: S82.61XA Displaced fracture of lateral malleolus of right fibula, initial encounter for closed fracture (principal)
CPT/HCPCS: 77080

== ENCOUNTER 2021-05-09 10:42 | Emergency (ER) | payer OTHER, SELFPAY ==
[2021-05-09] VITALS (8 sets, daily range): BP systolic 106–159; BP diastolic 48–85; PULSE 62–89; RESP 16–18; TEMP 37.2–37.7; O2SAT 72–99; BMI 37.8
--- NOTE | 2021-05-09 11:04 | XR_ITS ---
PROCEDURE: XR CHEST 2V CLINICAL HISTORY: RIGHT SIDED CHEST SORENESS, SOA COMPARISON: CR XR CHEST PORTABLE from 09/18/[address] ANGIO CHEST from 03/14/2021 CR XR CHEST PORTABLE from 03/14/2021 CR XR CHEST PORTABLE from 03/30/2021 FINDINGS: Cardiomegaly with mild pulmonary venous congestion. Mild upper thoracic curvature convex left. No lobar consolidation or collapse. IMPRESSION: Mild CHF Dictated by: Paresh Li MD 05/09/2021 11:28 Paresh Li MD in [place] 05/09/2021 11:28
--- NOTE | 2021-05-09 11:26 | HMH.EDGENADL ---
ED Disposition Clinical Impression: Atypical chest pain Disposition: Home, Self-Care Condition on Discharge: Good Additional Instructions: follow up with PCP in two days. Return to ED if new symptoms. Let your PCP schedule you for stress test. Return to ED if symptoms recurred or worse. Medications as directed. Prescriptions: Tizanidine HCl [Zanaflex 4mg tablet] 4 mg PO TID 7 Days #21 tab Transmission Status: Pending to [facility] Referrals: Jason Khan MD [Primary Care Provider] - - Critical Care Critical Care Time: No Attestation: On 05/09/21, the high probability of a clinically significant, sudden or life threatening deterioration of the following system(s) required my full and direct attention, intervention and personal management. The time I documented below is in addition to time spent performing reported procedures but includes the following listed in this critical care notation. Medical Decision Making - Medical Records MR Comment: chest pain is atypical. troponin was repeated twice and was negative. CTA was negative. - Adolph Inquiry Pt receiving controlled substance: No Adolph was queried for this patient: No Vital Signs: 05/09/21 10:43 05/09/21 10:49 05/09/21 11:01 Temperature 99.9 F H Temperature Source Oral Pulse Rate 89 79 Pulse Rate [Right] 82 Respiratory Rate 18 Blood Pressure 159/60 H 142/85 H Blood Pressure [Right Arm] 159/60 H Blood Pressure Mean Blood Pressure Mean [Right Arm] 93 02 Sat by Pulse Oximetry 97 72 L 98 Oxygen Delivery Method Oxygen Flow Rate (LPM) 05/09/21 11:45 05/09/21 12:30 05/09/21 13:31 Temperature Temperature Source Pulse Rate 73 73 68 Pulse Rate [Right] Respiratory Rate Blood Pressure 108/75 L 126/56 L 116/48 L Blood Pressure [Right Arm] Blood Pressure Mean 70 Blood Pressure Mean [Right Arm] 02 Sat by Pulse Oximetry 97 99 97 Oxygen Delivery Method Nasal Cannula Oxygen Flow Rate (LPM) 2 05/09/21 14:00 Temperature Temperature Source Pulse Rate 62 Pulse Rate [Right] Respiratory Rate Blood Pressure 106/50 L Blood Pressure [Right Arm] Blood Pressure Mean 75 Blood Pressure Mean [Right Arm] 02 Sat by Pulse Oximetry 98 Oxygen Delivery Method Nasal Cannula Oxygen Flow Rate (LPM) - Lab Data Lab Results 05/09/21 12:27: WBC 13.9 H, RBC 3.51 L, Hgb 11.6 L, Hct 36.7 L, MCV 104.4 H, MCH 33.0 H, MCHC 31.6 L, RDW 14.4, Plt Count 324, MPV 8.4, Neut % (Auto) 85.5 H, Lymph % (Auto) 9.9 L, [place] % (Auto) 4.0, Eos % (Auto) 0.4, Baso % (Auto) 0.3, Neut # (Auto) 11.9 H, Lymph # (Auto) 1.4, [place] # (Auto) 0.6, Eos # (Auto) 0.1, Baso # (Auto) 0.0, Total Counted 100, Neutrophils % (Manual) 87 H, Lymphocytes % (Manual) 11, Monocytes % (Manual) 1 L, Eosinophils % (Manual) 1, Platelet Estimate Normal, Hypochromasia 2+, Macrocytosis 2+ 05/09/21 12:27: Sodium 137, Potassium 3.3 L, Chloride 104, Carbon Dioxide 28, Anion Gap 8.3, BUN 6 L, Creatinine 0.80, Estimated Creat Clear 118, Estimated GFR 73, Est GFR ( Amer) 89, Glucose 95, Calcium 8.6, Total Bilirubin 0.5, AST 38 H, ALT 17, Alkaline Phosphatase 108, Troponin I < 0.01, Total Protein 6.9, Albumin 3.4 L, Globulin 3.5 H, Albumin/Globulin Ratio 1.0 L 05/09/21 12:27: Lactate 1.1 05/09/21 12:27: D-Dimer 1.03 H 05/09/21 12:27: NT-Pro-B Natriuret Pep 1740 H 05/09/21 15:24: Troponin I 0.02 Result diagrams: 05/09/21 12:27 05/09/21 12:27 Orders (Tests/Meds): ED MEDICATIONS Discontinued Medications Generic Name Dose Route Start Last Admin Trade Name Freq PRN Reason Stop Dose Admin Iopamidol 75 ml 05/09/21 15:28 05/09/21 15:31 Iopamidol-370 (76%);100ml Bottle IV 05/09/21 15:29 75 ml ONCE ONE Administration Sodium Chloride 10 ml 05/09/21 15:28 05/09/21 15:31 Sodium Chloride 0.9% 10ml Syr (Rad Only) IV 05/09/21 15:29 10 ml ONCE ONE Administration Sodium Chloride 50 ml 05/09/21 15:28 05/09/21 15:31 0.9
--- NOTE | 2021-05-09 12:32 | ECG_ITS ---
APPROVED REPORT Exam: Resting ECG HR:70 bpm ECG Measurements Heart Rate 70 AXES NE 158 P 53 QRSd 90 QRS 57 QT 384 T 18 QTc 414 Conclusion Normal sinus rhythm Normal ECG Electronically signed by : Jason Spear MD 05/09/2021 21:03:03
[2021-05-09 12:39] LABS: Basophils % 0.3 % (0.1-2.0); Eosinophils # 0.1 K/mm3 (0.0-0.4); Eosinophils % 0.4 % (0.1-12.0); Hematocrit 36.7 % (37.0-47.0); Hemoglobin 11.6 g/dL (12.2-16.2); Lymphocytes # 1.4 K/mm3 (0.7-4.5); Lymphocytes % 9.9 % (10-50); Mean Corpuscular HGB Conc 31.6 g/dL (31.8-35.4); Mean Corpuscular Volume 104.4 fl (81-99); Mean Platelet Volume 8.4 fl (7.4-10.4); Monocytes # 0.6 K/mm3 (0.1-1.0); Neutrophils # 11.9 K/mm3 (1.8-7.8); Neutrophils % 85.5 % (37.0-80.0); Platelet Count 324 K/mm3 (142-424); Red Blood Count 3.51 M/mm3 (4.20-5.40); Red Cell Distribution Width 14.4 % (11.5-17.5); White Blood Count 13.9 K/mm3 (4.8-10.8)
[2021-05-09 12:40] LABS: MANUAL DIFFERENTIAL MANUAL DIFFERENTIAL (MANUAL DIFF)
[2021-05-09 12:45] LABS: Alanine Aminotransferase 17 U/L (12-78); Albumin Level 3.4 g/dl (3.5-5.0); Alkaline Phosphatase 108 U/L (38-126); Anion Gap 8.3 mEq/L (5-15); Aspartate Amino Transferase 38 U/L (14-36); Bilirubin,Total 0.5 mg/dl (0.2-1.3); Blood Urea Nitrogen 6 mg/dl (7-17); Calcium 8.6 mg/dl (8.4-10.2); Carbon Dioxide 28 mmol/L (22.0-30.0); Chloride 104 mmol/L (98-107); Creatinine Clearance Estimated 118 mL/min (50-200); Estimated Glomerular Filt Rate 73 ml/min (>60); GFR (African American) 89 ML/MIN (>60); Globulin 3.5 g/dL (1.3-3.2); Glucose 95 mg/dl (74-100); Lactic Acid 1.1 mmol/L (0.7-2.1); Potassium 3.3 mmoL/L (3.5-5.1); Sodium 137 mmol/L (136-145); Total Protein,Serum 6.9 g/dl (6.3-8.2)
[2021-05-09 12:51] LABS: D-Dimer 1.03 ug/mL (0.0-0.5)
[2021-05-09 12:58] LABS: NT Pro Brain Natriuretic Pep. 1740 pg/mL (0-125)
[2021-05-09 13:01] LABS: Eosinophils % 1 % (0-3); Hypochromasia 2+; Lymphocytes % 11 % (10-50); Macrocytosis 2+; Monocytes % 1 % (2-9); Neutrophils % 87 % (42-76); Platelet Estimate Normal; Total Cells Counted 100
--- NOTE | 2021-05-09 13:02 | PC.NURSE ---
To bathroom via w/c and staff assist
[2021-05-09 13:07] LABS: Troponin I < 0.01 ng/ml (0.00-0.034)
--- NOTE | 2021-05-09 13:27 | CT_ITS ---
PROCEDURE: CT ANGIO CHEST PE PROTOCOL CLINCIAL INDICATION: chest pain. elevated D-Dimer COMPARISON: CT CT ANGIO CHEST from 03/14/2021 TECHNIQUE: IV Contrast: 70ML Isovue 370 Axial images obtained with sagittal and coronal reformats. All CT scans at the facility use one or more dose reduction, viz: automated exposure control, ma/kV adjustment per patient size (including targeted exams where dose is matched to indication, i.e. head), or iterative reconstruction technique. FINDINGS: HEART AND MEDIASTINAL STRUCTURES: There are numerous enlarged mediastinal lymph nodes also with mildly enlarged bilateral hilar lymph nodes. The mediastinal adenopathy is not significantly changed. Fluid is present in the superior recess of the pericardium and may be slightly more prominent. No evidence of pulmonary embolus, aortic aneurysm, or aortic dissection. LUNGS AND PLEURAL SPACES: There is diffuse bilateral ground-glass attenuation in the upper lobes with a more mosaic attenuation in the lower lobes. This is not significantly changed. No lobar consolidation or collapse. No pleural effusions. BONY STRUCTURES: No acute bony abnormalities apparent. UPPER ABDOMEN: Prior cholecystectomy. ADDITIONAL FINDINGS: No other significant abnormalities. IMPRESSION: No evidence of pulmonary embolus, aortic aneurysm, or aortic dissection. Overall no change in the diffuse ground-glass attenuation of the lungs with mosaic attenuation in the lower lobes. These findings are nonspecific and may be related to hypersensitivity pneumonitis or non-specific interstitial pneumonitis. Atypical sarcoidosis is also consideration. Adenopathy is, and sarcoidosis. Ground-glass opacities are atypical. Dictated by: Paresh Li MD 05/09/2021 16:14 Paresh Li MD in [facility] 05/09/2021 16:14
--- NOTE | 2021-05-09 14:20 | PC.NURSE ---
Called to verify radiology was aware of CTA ordered on patient
--- NOTE | 2021-05-09 14:40 | PC.NURSE ---
PATIENT TO CT AT THIS TIME
--- NOTE | 2021-05-09 15:10 | PC.NURSE ---
CT unable to perform CT of patient due to IV not tolerating IV dye. Rachell Oneal RN attempting to obtain adequate IV access at this time.
[2021-05-09 16:06] LABS: Troponin I 0.02 ng/ml (0.00-0.034)
== END 2021-05-09 16:44 | disposition home or self-care (01) ==
PROVIDERS: Emergency Provider Internal Medicine; PCP Family Medicine
DX: R07.89 Other chest pain (principal); J44.9 Chronic obstructive pulmonary disease, unspecified; I25.10 Atherosclerotic heart disease of native coronary artery without angina pectoris; I10 Essential (primary) hypertension; E78.5 Hyperlipidemia, unspecified; K21.9 Gastro-esophageal reflux disease without esophagitis; I25.2 Old myocardial infarction; F41.8 Other specified anxiety disorders; Z79.899 Other long term (current) drug therapy; F17.210 Nicotine dependence, cigarettes, uncomplicated
CPT/HCPCS: 71046; 71275; 80053; 83605; 83880; 84484; 85007; 85025; 85378; 93005; 99283; Q9967

== ENCOUNTER → 2021-05-26 10:22 | Outpatient (CLI) | payer OTHER, SELFPAY ==
--- NOTE | 2021-05-26 10:26 | XR_ITS ---
PROCEDURE: XR ANKLE RT MIN 3V CLINICAL INDICATION: RT ankle fx Follow-up fracture COMPARISON: CR XR ANKLE RT MIN 3V from 09/05/2020 CR XR ANKLE WT BEARING RT MIN 3V from 10/14/2020 CR XR ANKLE WT BEARING RT MIN 3V from 04/19/2021 CR XR ANKLE RT MIN 3V from 04/28/2021 FINDINGS: Cast has been removed. Healing fractures present involving the distal fibula. The fracture line is less apparent. There is some minimal lateral displacement of the distal fracture fragment and mild widening of the ankle mortise. Two screws are present within the medial malleolar region as before. There are mild osteoarthritic changes at the ankle joint. IMPRESSION: Healing distal fibular fracture with minimal lateral displacement of the distal fracture fragment and with mild widening of the ankle mortise Dictated by: Paresh Li MD 05/26/2021 11:23 Paresh Li MD in [facility] 05/26/2021 11:23
== END ==
PROVIDERS: PCP Family Medicine; Visit Provider Orthopaedic Surgery
DX: S82.61XA Displaced fracture of lateral malleolus of right fibula, initial encounter for closed fracture (principal)
CPT/HCPCS: 73610

== ENCOUNTER 2021-05-26 11:41 | Outpatient (RCR) | payer OTHER, SELFPAY | END 2021-05-26 12:30 | disposition home or self-care (01) | LOC: PT 11:41 | PROVIDERS: Visit Provider Orthopaedic Surgery | DX: S82.61XA Displaced fracture of lateral malleolus of right fibula, initial encounter for closed fracture (principal) | CPT/HCPCS: 97760 ==

== ENCOUNTER 2021-06-04 22:42 | Emergency (ER) | payer OTHER, SELFPAY ==
[2021-06-04 22:38] VITALS: BP 126/46; PULSE 73; RESP 16; TEMP 37; O2SAT 83; BMI 42.9
--- NOTE | 2021-06-04 22:45 | ECG_ITS ---
APPROVED REPORT Exam: Resting ECG HR:81 bpm ECG Measurements Heart Rate 81 AXES NM 166 P 65 QRSd 94 QRS 72 QT 374 T 27 QTc 434 Conclusion Normal sinus rhythm Normal ECG Electronically signed by : Jason Spear MD 06/05/2021 20:38:39
[2021-06-04 22:56] LABS: ABG Base Excess -0.6 mmol/L (-2.4-2.3); ABG HCO3 25.3 mmhg (22.0-26.0); ABG Oxygen Saturation 95 % (90-100); ABG PCO2 49.4 mmhg (35.0-45.0); ABG PH 7.33 mmol/L (7.35-7.45); ABG PO2 76.5 mmhg (80-100); ABG TCO2 26.9 mmhg (23-27)
[2021-06-04 22:57] LABS: Allen's Test Y; Oxygen 2 %; Source R/R
[2021-06-04 23:00] VITALS: BP 118/50; PULSE 79; O2SAT 95
--- NOTE | 2021-06-04 23:05 | XR_ITS ---
PROCEDURE INFORMATION: Exam: XR Chest Exam date and time: 06/04/2021 11:05 PM Age: 60 years old Clinical indication: Cough and shortness of breath; Additional info: Confusion, SOA, cough TECHNIQUE: Imaging protocol: XR of the chest. Views: 1 view. COMPARISON: CR XR CHEST 2V 05/09/2021 11:04 AM FINDINGS: Lungs: Overall aeration is improved compared to prior. There are some residual coarse bilateral interstitial opacities in the perihilar regions, and residual ill-defined ground-glass opacity in left suprahilar region. Pleural spaces: No pleural effusion. No pneumothorax. Heart/Mediastinum: Mediastinal prominence secondary to lymph node enlargement appears similar to prior. Unchanged cardiomegaly. Bones/joints: Unremarkable. IMPRESSION: 1. Improving aeration compared to 05/09/2021. Residual coarse bilateral perihilar opacities in suggested ground-glass opacity in the left suprahilar region. 2. Unchanged cardiomegaly and mediastinal prominence suggesting lymphadenopathy.
--- NOTE | 2021-06-04 23:05 | CT_ITS ---
PROCEDURE INFORMATION: Exam: CT Head Without Contrast Exam date and time: 06/04/2021 11:05 PM Age: 60 years old Clinical indication: Other: Confusion TECHNIQUE: Imaging protocol: Computed tomography of the head without contrast. Radiation optimization: All CT scans at this facility use at least one of these dose optimization techniques: automated exposure control; mA and/or kV adjustment per patient size (includes targeted exams where dose is matched to clinical indication); or iterative reconstruction. COMPARISON: No relevant prior studies available. FINDINGS: Brain: No intraparenchymal hematoma. No acute-appearing loss of moseley-white differentiation or evidence of large territorial ischemia. No mass effect or midline shift. Extra-axial space: Unremarkable. No fluid collection or mass. Cerebral ventricles: Within expected limits for age. No ventricular outflow obstruction. Paranasal sinuses: Small mucosal retention cyst or polyp in the posterior right ethmoid sinus. Mastoid air cells: Visualized mastoid air cells are well aerated. Vasculature: Scattered cerebrovascular calcifications. Bones/joints: No depressed or calvarial fracture. Soft tissues: Unremarkable. IMPRESSION: No evidence of acute intracranial abnormality.
--- NOTE | 2021-06-04 23:14 | HMH.EDSOB ---
ED Disposition Clinical Impression: Accidental opiate poisoning Qualifiers: Encounter type: initial encounter Qualified Code(s): T40.601A - Poisoning by unspecified narcotics, accidental (unintentional), initial encounter COPD (chronic obstructive pulmonary disease) Qualifiers: COPD type: unspecified COPD Qualified Code(s): J44.9 - Chronic obstructive pulmonary disease, unspecified Disposition: Home, Self-Care Condition on Discharge: Good Instructions: DI for Chronic Obstructive Pulmonary Disease Additional Instructions: call pcp for follow up Referrals: Jason Khan MD [Primary Care Provider] - - Critical Care Critical Care Time: No Attestation: On 06/04/21, the high probability of a clinically significant, sudden or life threatening deterioration of the following system(s) required my full and direct attention, intervention and personal management. The time I documented below is in addition to time spent performing reported procedures but includes the following listed in this critical care notation. Medical Decision Making - Medical Records Medical records reviewed: Yes: I reviewed the patient's medical records. - Adolph Inquiry Pt receiving controlled substance: No Vital Signs: 06/04/21 22:38 06/04/21 23:00 06/05/21 00:01 Temperature 98.6 F Temperature Source Oral Pulse Rate 79 78 Pulse Rate [Right] 73 Respiratory Rate 16 Blood Pressure 118/50 L 133/56 L Blood Pressure [Right Arm] 126/46 L Blood Pressure Mean [Right Arm] 72 02 Sat by Pulse Oximetry 83 L 95 92 L Oxygen Delivery Method Room Air 06/05/21 00:30 Temperature Temperature Source Pulse Rate 68 Pulse Rate [Right] Respiratory Rate Blood Pressure 106/62 L Blood Pressure [Right Arm] Blood Pressure Mean [Right Arm] 02 Sat by Pulse Oximetry 95 Oxygen Delivery Method - Lab Data Lab results reviewed: Yes: I reviewed the patient's lab results. Lab Results 06/04/21 22:55: Specimen Source R/r, O2 % 2, ABG pH 7.33 L, ABG pCO2 49.4 H, ABG pO2 76.5 L, ABG HCO3 25.3, ABG Total CO2 26.9, ABG O2 Saturation 95, ABG Base Excess -0.6, Paresh Test Y 06/04/21 23:03: Urine Color Yellow, Urine Appearance Clear, Urine pH 6.5, Ur Specific [place] 1.010, Urine Protein Negative, Urine Glucose (UA) Negative, Urine Ketones Negative, Urine Blood Negative, Urine Nitrate Negative, Urine Bilirubin Negative, Urine Urobilinogen 0.2, Ur Leukocyte Esterase Negative, Urine Bacteria Trace 06/04/21 23:03: Urine Opiates Screen Positive H, Urine Methadone Screen Negative, Ur Barbituates Screen Negative, Ur Phencyclidine Scrn Negative, Ur Amphetamines Screen Negative, U Benzodiazepines Scrn Negative, Urine Cocaine Screen Negative, U Marijuana (THC) Screen Negative 06/04/21 23:04: WBC 9.0, RBC 3.55 L, Hgb 11.4 L, Hct 37.2, MCV 104.9 H, MCH 32.2 H, MCHC 30.7 L, RDW 14.3, Plt Count 251, MPV 9.4, Neut % (Auto) 76.6, Lymph % (Auto) 16.0, [place] % (Auto) 4.3, Eos % (Auto) 2.7, Baso % (Auto) 0.4, Neut # (Auto) 6.9, Lymph # (Auto) 1.4, [place] # (Auto) 0.4, Eos # (Auto) 0.2, Baso # (Auto) 0.0, ESR 50 H 06/04/21 23:04: Sodium 140, Potassium 3.7, Chloride 106, Carbon Dioxide 27, Anion Gap 10.7, BUN 7, Creatinine 0.70, Estimated Creat Clear 74, Estimated GFR 85, Est GFR ( Amer) 103, Glucose 95, Calcium 9.2, Total Bilirubin 0.4, AST 46 H, ALT 34, Alkaline Phosphatase 151 H, C-Reactive Protein 149.9 H, Total Protein 7.5, Albumin 3.5, Globulin 4.0 H, Albumin/Globulin Ratio 0.9 L 06/04/21 23:04: Lactate 0.9 06/04/21 23:04: Troponin I < 0.01 06/04/21 23:04: Procalcitonin 0.329 06/05/21 01:20: Troponin I < 0.01 06/05/21 01:30: SARS-CoV-2 (PCR) Not detected, Influenza A Untype (PCR) Not detected, Influenza Type B (PCR) Not detected Result diagrams: 06/04/21 23:04 06/04/21 23:04 Orders (Tests/Meds): ED MEDICATIONS Discontinued Medications Generic Name Dose Route Start Last Admin Trade Name Freq PRN Reason Stop Dose Admin Naloxone HCl 2 mg 06/05/21 01:28
[2021-06-04 23:15] LABS: Microscopic,Cath URINE MICROSCOPIC (MICROSCOPIC)
[2021-06-04 23:16] LABS: Basophils % 0.4 % (0.1-2.0); Eosinophils # 0.2 K/mm3 (0.0-0.4); Eosinophils % 2.7 % (0.1-12.0); Hematocrit 37.2 % (37.0-47.0); Hemoglobin 11.4 g/dL (12.2-16.2); Lymphocytes # 1.4 K/mm3 (0.7-4.5); Mean Corpuscular HGB Conc 30.7 g/dL (31.8-35.4); Mean Corpuscular Hemoglobin 32.2 pg (27.0-31.2); Mean Corpuscular Volume 104.9 fl (81-99); Mean Platelet Volume 9.4 fl (7.4-10.4); Monocytes # 0.4 K/mm3 (0.1-1.0); Monocytes % 4.3 % (1.7-9.3); Neutrophils # 6.9 K/mm3 (1.8-7.8); Neutrophils % 76.6 % (37.0-80.0); Platelet Count 251 K/mm3 (142-424); Red Blood Count 3.55 M/mm3 (4.20-5.40); Red Cell Distribution Width 14.3 % (11.5-17.5)
[2021-06-04 23:17] LABS: Appearance,Urine/Cath CLEAR (Clear); Bilirubin,Cath Negative (Negative); Blood, Urine/Cath Negative (Negative); Color,Urine/Cath YELLOW (Yellow); Glucose,Urine/Cath (UA) Negative (Negative); Ketones,Urine/Cath Negative (Negative); Leukocyte Esterase,Cath Negative (Negative); Nitrate,Cath Negative (Negative); PH,Urine/Cath 6.5 (5.0-8.5); Protein,Urine/Cath Negative (Negative); Urobilinogen,Cath 0.2 EU/dl (0.2)
[2021-06-04 23:23] LABS: Alanine Aminotransferase 34 U/L (12-78); Albumin Level 3.5 g/dl (3.5-5.0); Albumin/Globulin Ratio 0.9 (1.1-1.8); Alkaline Phosphatase 151 U/L (38-126); Anion Gap 10.7 mEq/L (5-15); Aspartate Amino Transferase 46 U/L (14-36); Bilirubin,Total 0.4 mg/dl (0.2-1.3); Blood Urea Nitrogen 7 mg/dl (7-17); Calcium 9.2 mg/dl (8.4-10.2); Carbon Dioxide 27 mmol/L (22.0-30.0); Chloride 106 mmol/L (98-107); Creatinine Clearance Estimated 74 mL/min (50-200); Estimated Glomerular Filt Rate 85 ml/min (>60); GFR (African American) 103 ML/MIN (>60); Glucose 95 mg/dl (74-100); Lactic Acid 0.9 mmol/L (0.7-2.1); Potassium 3.7 mmoL/L (3.5-5.1); Sodium 140 mmol/L (136-145); Total Protein,Serum 7.5 g/dl (6.3-8.2)
[2021-06-04 23:24] LABS: Bacteria,Urine/Cath TRACE /lpf
[2021-06-04 23:28] LABS: Barbiturates Screen,Urine Negative ng/ml (<200)
[2021-06-04 23:28] LABS: C-Reactive Protein 149.9 mg/L (0-4)
[2021-06-04 23:29] LABS: Benzodiazepines Screen,Urine Negative ng/ml (<200)
[2021-06-04 23:30] LABS: Amphetamine/Metha Screen,Urine Negative ng/ml (<1000); Cannabinoid Screen,Urine Negative ng/ml (<50)
[2021-06-04 23:31] LABS: Cocaine Screen,Urine Negative ng/ml (<300)
[2021-06-04 23:32] LABS: Methadone Screen,Urine Negative ng/ml (<300); Opiate Screen,Urine Positive ng/ml (<300)
[2021-06-04 23:33] LABS: Phencyclidine Screen,Urine Negative ng/ml (<25)
[2021-06-04 23:40] LABS: Erythrocyte Sedimentation Rate 50 mm/hr (0-30)
[2021-06-04 23:41] LABS: Troponin I < 0.01 ng/ml (0.00-0.034)
[2021-06-04 23:45] LABS: Procalcitonin 0.329 ng/mL (0.0-2.0)
[2021-06-05 00:01] VITALS: BP 133/56; PULSE 78; O2SAT 92
[2021-06-05 00:30] VITALS: BP 106/62; PULSE 68; O2SAT 95
[2021-06-05 01:37] LABS: Coronavirus 19, PCR Not Detected (NotDetected); Influenza A, PCR Not Detected (NotDetected); Influenza B, PCR Not Detected (NotDetected)
[2021-06-05 01:45] LABS: Troponin I < 0.01 ng/ml (0.00-0.034)
[2021-06-05 03:41] VITALS: BP 134/75; PULSE 79; RESP 16; TEMP 37; O2SAT 95
== END 2021-06-05 03:42 | disposition home or self-care (01) ==
PROVIDERS: Emergency Provider Emergency Medicine; PCP Family Medicine
DX: T40.601A Poisoning by unspecified narcotics, accidental (unintentional), initial encounter (principal); J44.9 Chronic obstructive pulmonary disease, unspecified; I25.10 Atherosclerotic heart disease of native coronary artery without angina pectoris; K21.9 Gastro-esophageal reflux disease without esophagitis; I10 Essential (primary) hypertension; E78.5 Hyperlipidemia, unspecified; F17.210 Nicotine dependence, cigarettes, uncomplicated; Z88.0 Allergy status to penicillin; Z88.2 Allergy status to sulfonamides; Z79.899 Other long term (current) drug therapy
CPT/HCPCS: 36415; 70450; 71045; 80053; 80305; 81001; 82803; 83605; 84145; 84484; 85025; 85651; 86140; 87040; 93005; 96365; 99284; J2310; U0003

== ENCOUNTER → 2021-06-08 10:01 | Outpatient (CLI) | payer OTHER, SELFPAY ==
--- NOTE | 2021-06-08 10:45 | PC.NURSE ---
PFT Completed without complications. Albuterol 0.083% given via HHN per protocol, Pt tolerated tx well.
== END ==
PROVIDERS: PCP Family Medicine; Visit Provider Family Medicine
DX: R06.09 Other forms of dyspnea (principal)
CPT/HCPCS: 94060; 94726; 94729

== ENCOUNTER 2021-07-04 15:00 | Outpatient (RCR) | payer OTHER, SELFPAY ==
--- NOTE | 2021-05-31 15:34 | HMH.PTOPEV ---
PT Outpatient Evaluation Rehab PT Outpatient Evaluation Start: 05/31/21 14:13 Freq: Status: Active Protocol: Document 05/31/21 14:52 PHORNE (Rec: 05/31/21 15:25 PHORNE [id number]) Electronically Signed By Driss Falk, PT 05/31/21 14:52 Outpatient Therapy Subjective History Subjective History Pt is 60 year old female who presents ~6 weeks s/p R ankle fracture. Pt reports having a low oxygen episode that caused her to fall at home. Pt rates R ankle pain at 7/10 this afternoon. She reports constant dull pain that can be aggravated to sharp, shooting pain at 10/10. Heat and ice only provide temporary relief. Pt has hx of R bimalleolar fracture. Eval completed by Lata Sutherland, KALYANI. Chief Complaint Pain Symptom Type Sharp,Dull Symptoms Relieved By Rest/Positioning,Heat,Ice Symptoms Aggravated By Walking Prior Functional Limitations None Current Functional Limitations Recreation Activity,Walking, Stairs Symptom Description Constant and Continuous Level of pain today (0-10) 7 Pain scale - at its best (0-10) 2 Pain scale - at its worst (0-10) 10 Ankle/Foot Eval Palpation Tenderness right Ankle/Foot Palpation Findings Tenderness Ankle/Foot Palpation Overall Comment R lateral malleolus; along surgical incision ROM Ankle/Foot Dorsiflexion w/Knee Flexed 5 Active Range of Motion (degrees) Ankle/Foot Plantar Flexion Active Range 35 of Motion (degrees) Ankle/Foot Eversion Active Range of 15 Motion (degrees) Ankle/Foot Inversion Active Range of 5 Motion (degrees) Great Toe ROM Reason Not Measured Within Functional Limits MMT Ankle Dorsiflexion Strength Grade 5 Normal Ankle Plantarflexion Strength Grade 5 Normal Foot Eversion Strength Grade 5 Normal Foot Inversion Strength Grade 4 Good Outpatient Therapy Assessment Impairments Problems/Impairmments Palpation Tenderness,Impaired Range of Motion,Impaired Strength,Subjective C/O Pain, Impaired Self Care/Self Management Prognosis Rehab Potential Good Clinical Impression Consistent with Diagnosis Yes Short Term Goals Number of Weeks 4 Decreased Palpation Tenderness Yes Increase Range of Motion
== END 2021-07-04 15:05 | disposition home or self-care (01) ==
LOC: PT 15:00
PROVIDERS: PCP Family Medicine; Visit Provider Orthopaedic Surgery
DX: S82.61XA Displaced fracture of lateral malleolus of right fibula, initial encounter for closed fracture (principal)
CPT/HCPCS: 97010; 97014; 97110; 97140; 97163; G0283

== ENCOUNTER → 2021-07-05 10:11 | Outpatient (CLI) | payer OTHER, SELFPAY ==
--- NOTE | 2021-07-05 10:18 | XR_ITS ---
PROCEDURE: XR ANKLE RT MIN 3V CLINICAL INDICATION: right ankle fracture; out of cam walker boot COMPARISON: CR XR ANKLE WT BEARING RT MIN 3V from 10/14/2020 CR XR ANKLE WT BEARING RT MIN 3V from 04/19/2021 CR XR ANKLE RT MIN 3V from 04/28/2021 CR XR ANKLE RT MIN 3V from 05/26/2021 FINDINGS: Healing distal fibular fracture noted. Fracture line is visible laterally. There is some minimal lateral displacement of the distal fibular fracture fragment with mild widening of the ankle mortise overall not significantly changed. IMPRESSION: No change minimally displaced healing fibular fracture with mild widening of the ankle mortise. Dictated by: Paresh Li MD 07/05/2021 16:08 Paresh Li MD in [facility] 07/05/2021 16:08
== END ==
PROVIDERS: PCP Family Medicine; Visit Provider Orthopaedic Surgery
DX: S82.61XA Displaced fracture of lateral malleolus of right fibula, initial encounter for closed fracture (principal)
CPT/HCPCS: 73610

== ENCOUNTER → 2021-08-15 14:15 | Outpatient (CLI) | payer OTHER, SELFPAY ==
--- NOTE | 2021-08-15 14:15 | CA_ITS ---
APPROVED REPORT EXAM: Comprehensive 2D, Doppler, and color-flow Echocardiogram Midlevel Provider: Rosa Samaniego RT(R) Ht: 5 ft 4 in Wt: 232lbs BSA: 2.08 BP: 167/78 mmHg Indications: SOA, COPD, smoker, HTN, hyperlipidemia, hx COVID, CHF, GERD, ARTHUR 2D Dimensions LVOT 2.12 cm (M/F) 1.5-2.5 LA Volume 69.10 mL LA Volume Index 33.22 mL/m2 (M/F) 16-34 M-Mode Dimensions RVDd 4.22 cm (0.9-2.6) LA Diam 4.00 cm (1.9-4.0) LVDd 4.27 cm (3.5-5.7) Ao Diam 2.56 cm (2.0-3.7) LVDs 3.14 cm (3.5-5.7) IVSd 1.03 cm (0.6-1.1) PWd 1.03 cm (0.6-1.1) EF (Teich) 52.10% FS 26.50% EDV (Teich) 81.70 mL ESV (Teich) 39.10 mL LV Diastology E Decel Time 213.00 (160-240 msec) E/A Ratio 0.9 MED E' 11.30 (< 7 cm/sec) E'/MED E' Ratio 7.87 (>14) LAT E' 12.20 (<10 cm/sec) E/LAT E' Ratio 7.29 (>14) Mitral Valve MV E Max Xiang. 89.00 (40-130 cm/s) MV A Velocity 102.00 (40-130 cm/s) E/A Ratio 0.87 MV Decel. Time 213.00 (160-240 ms) MV PHT 62.00 ms Tricuspid Valve TR P. Velocity 413.00 cm/s RAP Estimate 15.00 mmHg RVSP 83.30 mmHg Left Ventricle Left atrium is mildly enlarged, left ventricle is normal size, mild concentric left ventricular hypertrophy, visually estimated ejection fraction 55% with no regional wall motion abnormality, grade 1 diastolic dysfunction seen without tissue Doppler evidence of raise left atrial pressure. Right Ventricle Right atrium and right ventricle mildly enlarged with normal contractility. Aortic Valve Aortic valve is minimally thickened and fibrosed, there is no aortic stenosis or aortic insufficiency. Mitral Valve Mitral valve grossly normal, there is trace mitral regurgitation. Tricuspid Valve Tricuspid grossly normal, there is mild tricuspid regurgitation, calculated right ventricular systolic pressure is 78 mmHg. Pulmonic Valve Pulmonic valve is poorly visualized. Great Vessels Aortic root is normal size. Inferior vena cava normal size with normal respiratory collapse. Pericardium No significant pericardial effusion noted. Conclusion 1. Mild biatrial enlargement, normal left ventricular size, mild concentric left ventricular hypertrophy, visually estimated ejection fraction 55% with no regional wall motion abnormality, grade 1 diastolic dysfunction seen without tissue Doppler evidence of raise left atrial pressure. 2. Mildly enlarged right ventricle with normal contractility. 3. Trace mitral and mild tricuspid regurgitation, calculated right ventricular systolic pressure is 78 mmHg. 4. No significant pericardial effusion noted 5. Inferior vena cava normal size with normal inspiratory collapse. Electronically signed by : Khalif Hutchinson MD 08/15/2021 19:26:01
--- NOTE | 2021-08-15 15:05 | CT_ITS ---
PROCEDURE: CT HR CHEST X3 CLINICAL HISTORY: COMPARISON: CT LUNGSCREEN CT lung screening from 02/20/[address] CHEST WO/W CON from 10/12/[address] ANGIO CHEST PE PROTOCOL from 05/09/2021 TECHNIQUE: Axial images obtained with sagittal and coronal reformats. All CT scans at the facility use one or more dose reduction, viz: automated exposure control, ma/kV adjustment per patient size (including targeted exams where dose is matched to indication, i.e. head), or iterative reconstruction technique. FINDINGS: Heart and mediastinum: Mediastinal adenopathy is once again noted not significantly changed. There is cardiomegaly. Coronary artery calcifications are present. Subcarinal adenopathy is present with some coarse calcifications. Right hilar calcified nodes. Lungs: Mosaic attenuation once again noted. Minimal peripheral consolidation or atelectatic change in the subpleural region of the left lower lobe. No effusions. High-resolution images are obtained in inspiration, expiration, and prone. No significant air trapping. No bronchiectasis. No pulmonary fibrosis. Subpleural opacity is present in the left lower lobe laterally and inferiorly. Mild interlobular septal thickening noted on the prone images posteriorly Upper abdomen: Prior cholecystectomy. Borderline splenomegaly. And may be due to an area of scarring. Bones: Degenerative changes thoracic spine with mild kyphosis and dextroscoliosis. The IMPRESSION: Overall no change in the diffuse mosaic pattern of the lungs. Minimal subpleural consolidation or atelectasis in the left lower lobe and scarring in the left lower lobe anterior laterally. Overall no change in the mediastinal adenopathy and cardiomegaly. There is some minimal interlobular septal thickening posteriorly. No honeycombing. Differential diagnosis includes hypersensitivity pneumonitis or non-specific interstitial pneumonitis, atypical sarcoidosis. Lymphoma or metastatic disease in combination with interstitial pneumonitis would also be considered. The adenopathy was not present on a older exam of 02/20/2018 Dictated by: Paresh Li MD 08/28/2021 07:23 Paresh Li MD in [facility] 08/28/2021 07:23
== END ==
PROVIDERS: PCP Family Medicine; Visit Provider Internal Medicine Pulmonary Disease
DX: R06.02 Shortness of breath (principal); R06.00 Dyspnea, unspecified; J84.9 Interstitial pulmonary disease, unspecified; J98.4 Other disorders of lung; F17.210 Nicotine dependence, cigarettes, uncomplicated
CPT/HCPCS: 71250; 93306; 94762

== ENCOUNTER → 2021-08-16 10:08 | Outpatient (CLI) | payer OTHER, SELFPAY ==
[2021-08-16 11:24] LABS: Basophils # 0.1 K/mm3 (0-0.2); Basophils % 0.9 % (0.1-2.0); Eosinophils # 0.3 K/mm3 (0.0-0.4); Eosinophils % 3.3 % (0.1-12.0); Hematocrit 41.1 % (37.0-47.0); Hemoglobin 12.8 g/dL (12.2-16.2); Lymphocytes # 1.9 K/mm3 (0.7-4.5); Lymphocytes % 19.1 % (10-50); Mean Corpuscular HGB Conc 31.2 g/dL (31.8-35.4); Mean Corpuscular Hemoglobin 32.1 pg (27.0-31.2); Mean Corpuscular Volume 102.9 fl (81-99); Mean Platelet Volume 9.4 fl (7.4-10.4); Monocytes # 0.5 K/mm3 (0.1-1.0); Monocytes % 4.6 % (1.7-9.3); Neutrophils # 7.3 K/mm3 (1.8-7.8); Neutrophils % 72.1 % (37.0-80.0); Platelet Count 507 K/mm3 (142-424); Red Cell Distribution Width 15.6 % (11.5-17.5); White Blood Count 10.1 K/mm3 (4.8-10.8)
[2021-08-16 11:58] LABS: D-Dimer 0.72 ug/mL (0.0-0.5)
[2021-08-16 12:31] LABS: Alanine Aminotransferase 20 U/L (12-78); Albumin Level 3.8 g/dl (3.5-5.0); Albumin/Globulin Ratio 1.2 (1.1-1.8); Alkaline Phosphatase 156 U/L (38-126); Anion Gap 11.4 mEq/L (5-15); Aspartate Amino Transferase 40 U/L (14-36); Bilirubin,Total 0.2 mg/dl (0.2-1.3); Blood Urea Nitrogen 10 mg/dl (7-17); Calcium 9.1 mg/dl (8.4-10.2); Carbon Dioxide 28 mmol/L (22.0-30.0); Chloride 103 mmol/L (98-107); Creatine Kinase 98 U/L (30-135); Estimated Glomerular Filt Rate 64 ml/min (>60); GFR (African American) 77 ML/MIN (>60); Globulin 3.2 g/dL (1.3-3.2); Glucose 96 mg/dl (74-100); Potassium 4.4 mmoL/L (3.5-5.1); Sodium 138 mmol/L (136-145)
[2021-08-16 12:37] LABS: C-Reactive Protein 60.7 mg/L (0-4); Erythrocyte Sedimentation Rate 62 mm/hr (0-30)
[2021-08-17 12:17] LABS: Anti-Centromere B Antibodies <0.2 AI (0.0-0.9); Anti-DNA (DS) Ab Qn <1 IU/mL (0-9); Antiribosomal P Antibodies 0.2 AI (0.0-0.9); Antiscleroderma-70 Antibodies <0.2 AI (0.0-0.9); RNP Antibodies <0.2 AI (0.0-0.9); Sjogren's Anti-SS-A 0.5 AI (0.0-0.9); Sjogren's Anti-SS-B <0.2 AI (0.0-0.9)
[2021-08-18 00:09] LABS: Anti-Cyclic Citrullinated Pept 10 units (0-19)
[2021-08-18 18:08] LABS: Antiproteinase 3 (PR-3) Abs <3.5 U/mL (0.0-3.5); Cytoplasmic (C-ANCA) <1:20 titer (Neg:<1:20); Myeloperoxidase Antibody <9.0 U/mL (0.0-9.0); Perinuclear (P-ANCA) <1:20 titer (Neg:<1:20)
[2021-08-18 23:20] LABS: D001-IgE D pteronyssinus <0.10 kU/L (Class 0); D002-IgE D farinae <0.10 kU/L (Class 0); E001-IgE Cat Dander <0.10 kU/L (Class 0); E005-IgE Dog Dander <0.10 kU/L (Class 0); E072-IgE Mouse Urine <0.10 kU/L (Class 0); G002-IgE Bermuda Grass <0.10 kU/L (Class 0); G006-IgE Timothy Grass <0.10 kU/L (Class 0); I006-IgE Cockroach, German <0.10 kU/L (Class 0); Immunoglobulin E, Total 104 IU/mL (6-495); M001-IgE Penicillium chrysogen <0.10 kU/L (Class 0); M002-IgE Cladosporium herbarum <0.10 kU/L (Class 0); M003-IgE Aspergillus fumigatus <0.10 kU/L (Class 0); M006-IgE Alternaria alternata <0.10 kU/L (Class 0); T001-IgE Maple/Box Elder <0.10 kU/L (Class 0); T003-IgE Common Silver Birch <0.10 kU/L (Class 0); T006-IgE Cedar, Mountain <0.10 kU/L (Class 0); T007-IgE Oak, White <0.10 kU/L (Class 0); T008-IgE Elm, American <0.10 kU/L (Class 0); T010-IgE Walnut <0.10 kU/L (Class 0); T011-IgE Maple Leaf Sycamore <0.10 kU/L (Class 0); T014-IgE Cottonwood <0.10 kU/L (Class 0); T015-IgE Ash, White <0.10 kU/L (Class 0); T022-IgE Pecan, Hickory <0.10 kU/L (Class 0); T070-IgE White Mulberry <0.10 kU/L (Class 0); W001-IgE Ragweed, Short <0.10 kU/L (Class 0); W011-IgE Thistle, Russian <0.10 kU/L (Class 0); W014-IgE Pigweed, Common <0.10 kU/L (Class 0); W018-IgE Sheep Sorrel <0.10 kU/L (Class 0)
[2021-08-21 12:15] LABS: Aspergillus fumigatus IgG Negative (Negative); Pigeon Serum Abs Negative (Negative)
[2021-08-22 06:03] LABS: QuantiFERON-TB Gold Plus Negative (Negative)
[2021-11-20 15:55] LABS: Antinuclear Antibodies (ANA) NEGATIVE
== END ==
PROVIDERS: Visit Provider Internal Medicine Pulmonary Disease
DX: R06.00 Dyspnea, unspecified (principal); J44.9 Chronic obstructive pulmonary disease, unspecified; J84.9 Interstitial pulmonary disease, unspecified; J98.4 Other disorders of lung; J84.10 Pulmonary fibrosis, unspecified; I26.99 Other pulmonary embolism without acute cor pulmonale; J45.909 Unspecified asthma, uncomplicated
CPT/HCPCS: 36415; 80053; 82085; 82550; 82785; 83516; 83520; 85025; 85378; 85651; 86003; 86038; 86140; 86200; 86225; 86235; 86256; 86331; 86431; 86480; 86602; 86606; 86609

== ENCOUNTER → 2021-08-29 15:58 | Outpatient (CLI) | payer OTHER, SELFPAY ==
[2021-08-29 17:12] LABS: Basophils # 0.1 K/mm3 (0-0.2); Basophils % 0.4 % (0.1-2.0); Eosinophils % 0.3 % (0.1-12.0); Hematocrit 45.3 % (37.0-47.0); Hemoglobin 14.2 g/dL (12.2-16.2); Lymphocytes # 1.1 K/mm3 (0.7-4.5); Lymphocytes % 8.7 % (10-50); Mean Corpuscular HGB Conc 31.3 g/dL (31.8-35.4); Mean Corpuscular Hemoglobin 31.9 pg (27.0-31.2); Mean Corpuscular Volume 101.8 fl (81-99); Mean Platelet Volume 8.2 fl (7.4-10.4); Monocytes # 0.4 K/mm3 (0.1-1.0); Monocytes % 2.7 % (1.7-9.3); Neutrophils # 11.5 K/mm3 (1.8-7.8); Neutrophils % 87.9 % (37.0-80.0); Platelet Count 458 K/mm3 (142-424); Red Blood Count 4.45 M/mm3 (4.20-5.40); Red Cell Distribution Width 15.7 % (11.5-17.5); White Blood Count 13.1 K/mm3 (4.8-10.8)
[2021-08-29 17:14] LABS: MANUAL DIFFERENTIAL MANUAL DIFFERENTIAL (MANUAL DIFF)
[2021-08-29 18:51] LABS: Chloride 102 mmol/L (98-107); Potassium 4.9 mmoL/L (3.5-5.1); Sodium 140 mmol/L (136-145)
[2021-08-29 18:54] LABS: Anion Gap 10.9 mEq/L (5-15); Blood Urea Nitrogen 22 mg/dl (7-17); Carbon Dioxide 32 mmol/L (22.0-30.0); Estimated Glomerular Filt Rate 64 ml/min (>60); GFR (African American) 77 ML/MIN (>60)
[2021-08-29 18:55] LABS: Calcium 9.1 mg/dl (8.4-10.2); Glucose 102 mg/dl (74-100)
[2021-08-29 20:15] LABS: Anisocytosis 1+; Eosinophils % 1 % (0-3); Hypochromasia 1+; Lymphocytes % 4 % (10-50); Macrocytosis 1+; Monocytes % 3 % (2-9); Neutrophils % 92 % (42-76); Platelet Estimate Slight Increase; RBC Morphology MP; Total Cells Counted 100
== END ==
PROVIDERS: Visit Provider Physician Assistant
DX: Z01.812 Encounter for preprocedural laboratory examination (principal); Z20.822 Contact with and (suspected) exposure to COVID-19; I25.10 Atherosclerotic heart disease of native coronary artery without angina pectoris; I10 Essential (primary) hypertension
CPT/HCPCS: 36415; 80048; 85007; 85025; C9803; U0003; U0005

== ENCOUNTER 2021-08-31 08:20 | Day surgery (SDC) | payer OTHER, SELFPAY ==
[2021-08-31] VITALS (7 sets, daily range): BP systolic 113–157; BP diastolic 65–70; PULSE 55–61; RESP 16–18; TEMP 36.3; O2SAT 91–99; BMI 41.8
--- NOTE | 2021-08-31 07:11 | IR_ITS ---
APPROVED REPORT Patient Location: Outpatient [facility] Worker Apprentice: KADI Alfonso RT (R) PROCEDURES Right heart catheterization INDICATION Severe pulmonary hypertension Informed consent was obtained prior to the procedure. COMPLICATIONS NONE Estimated Blood Loss: LESS THAN 10 ML TECHNIQUE One percent lidocaine was used to anesthetize the right anterior aspect of the neck. A band attacher needle was used to identify the right internal jugular vein. Following this a larger cannulation needle was used to cannulate the right internal jugular vein and a wire was passed into the vein. Prior to the 7 Portuguese sheath being inserted the wire was confirmed under fluoroscopic guidance to be in the inferior vena cava. A 7 Portuguese sheath was introduced and a Biddle-Cachorro catheter was floated using hemodynamic waveforms in the pulmonary artery, right ventricle , and right atrium. Saturations were obtained in the pulmonary artery and the right atrium. At the end of the procedure the patient was transferred to the postop holding area in stable condition for sheath removal. ANGIOGRAPHIC RESULTS Right atrial pressure 12 mmHg Right ventricular pressure 45/12 mmHg Pulmonary artery pressure 43/22 mmHg Pulmonary occlusion pressure 18 Right atrial and pulmonary saturation 79% IMPRESSION Diastolic dysfunction as described above resulting in moderate pulmonary hypertension Avoidance of carbonated drinks and salt restriction Weight loss Judicious use of diuretics Electronically signed by : Pool Gore MD 08/31/2021 13:46:57
[2021-08-31 14:55] LABS: CATHL Arterial O2 SAT 79.5 % (90-100); CATHL Venous O2 SAT 79.4 % (75-80)
== END 2021-08-31 11:49 | disposition home or self-care (01) ==
LOC: CATHLAB 08:20
PROVIDERS: PCP Family Medicine; Visit Provider Internal Medicine
DX: I27.20 Pulmonary hypertension, unspecified (principal); I50.32 Chronic diastolic (congestive) heart failure; R94.30 Abnormal result of cardiovascular function study, unspecified; I11.0 Hypertensive heart disease with heart failure; Z79.899 Other long term (current) drug therapy; F17.210 Nicotine dependence, cigarettes, uncomplicated
CPT/HCPCS: 82810; 93456; 99152; 99153; C1894; J1644; J2405

== ENCOUNTER → 2021-09-28 10:03 | Outpatient (CLI) | payer OTHER, SELFPAY ==
[2021-09-29 15:08] LABS: Aldolase 14.9 U/L (3.3-10.3)
== END ==
PROVIDERS: PCP Family Medicine; Visit Provider Internal Medicine Pulmonary Disease
DX: R06.00 Dyspnea, unspecified (principal); J84.9 Interstitial pulmonary disease, unspecified
CPT/HCPCS: 36415; 82085; 86140

== ENCOUNTER 2021-10-26 17:41 | Inpatient (IN) | payer OTHER, SELFPAY ==
[2021-10-26 17:42] VITALS: BP 107/56; PULSE 92; RESP 26; TEMP 37.2; O2SAT 95; BMI 41.5
--- NOTE | 2021-10-26 17:58 | XR_ITS ---
PROCEDURE INFORMATION: Exam: XR Chest Exam date and time: 10/26/2021 5:58 PM Age: 61 years old Clinical indication: Cough; Additional info: Cough, short of breath TECHNIQUE: Imaging protocol: XR of the chest. Views: 1 view. COMPARISON: CT HR CHEST X3 08/15/2021 3:38 PM FINDINGS: Lungs: Pulmonary vascular congestion. No acute airspace consolidation. Pleural spaces: Unremarkable. No pleural effusion. No pneumothorax. Heart/Mediastinum: Cardiomegaly. Vasculature: Mild aortic tortuosity. Bones/joints: Unremarkable. IMPRESSION: Cardiomegaly and pulmonary vascular congestion.
--- NOTE | 2021-10-26 17:58 | HMH.EDGENADL ---
ED Disposition Clinical Impression: Restrictive lung disease, Swelling of lower extremity Respiratory failure Qualifiers: Chronicity: acute on chronic Respiratory failure complication: hypoxia Qualified Code(s): J96.21 - Acute and chronic respiratory failure with hypoxia Disposition: Admitted As Inpatient Condition on Discharge: Fair Referrals: Jason Khan MD [Primary Care Provider] - Time of Disposition: 20:15 - Critical Care Critical Care Time: No Attestation: On 10/26/21, the high probability of a clinically significant, sudden or life threatening deterioration of the following system(s) required my full and direct attention, intervention and personal management. The time I documented below is in addition to time spent performing reported procedures but includes the following listed in this critical care notation. Medical Decision Making - Medical Records Medical records reviewed: Yes: I reviewed the patient's medical records. - Adolph Inquiry Pt receiving controlled substance: No Vital Signs: 10/26/21 17:42 Temperature 99.0 F Temperature Source Oral Pulse Rate [Left Radial] 92 H Respiratory Rate 26 H Blood Pressure [Right Arm] 107/56 L Blood Pressure Mean [Right Arm] 73 Blood Pressure Source [Right Arm] Automatic Cuff Blood Pressure Position [Right Arm] Sitting 02 Sat by Pulse Oximetry 95 Oxygen Delivery Method Nasal Cannula Oxygen Flow Rate (LPM) 2 - Lab Data Lab Results 10/26/21 17:58: VBG pH 7.39, VBG pCO2 33.0 L, VBG pO2 32.7, VBG HCO3 19.3 L, VBG Total CO2 20.4 L, VBG O2 Saturation 66.2, VBG Base Excess -5.7 L 10/26/21 18:05: SARS-CoV-2 (PCR) Not detected, Influenza A Untype (PCR) Not detected, Influenza Type B (PCR) Not detected 10/26/21 19:29: WBC 18.8 H, RBC 4.12 L, Hgb 13.5, Hct 42.7, MCV 103.7 H, MCH 32.8 H, MCHC 31.7 L, RDW 14.7, Plt Count 392, MPV 7.8, Neut % (Auto) 90.2 H, Lymph % (Auto) 5.5 L, [place] % (Auto) 2.5, Eos % (Auto) 1.1, Baso % (Auto) 0.7, Neut # (Auto) 16.9 H, Lymph # (Auto) 1.0, [place] # (Auto) 0.5, Eos # (Auto) 0.2, Baso # (Auto) 0.1 10/26/21 19:29: Sodium 138, Potassium 3.4 L, Chloride 102, Carbon Dioxide 29, Anion Gap 10.4, BUN 13, Creatinine 1.10 H, Estimated Creat Clear 48, Estimated GFR 50 L, Est GFR ( Amer) 61, Glucose 102 H, Calcium 8.8, Total Bilirubin 0.6, AST 52 H, ALT 28, Alkaline Phosphatase 121, Total Protein 7.8, Albumin 4.1, Globulin 3.7 H, Albumin/Globulin Ratio 1.1 10/26/21 19:29: D-Dimer 1.11 H 10/26/21 19:29: NT-Pro-B Natriuret Pep 2210 H Result diagrams: 10/26/21 19:29 10/26/21 19:29 Orders (Tests/Meds): ED MEDICATIONS Discontinued Medications Generic Name Dose Route Start Last Admin Trade Name Freq PRN Reason Stop Dose Admin Enoxaparin Sodium 40 mg 10/26/21 19:26 10/26/21 19:32 Enoxaparin 40mg/0.4ml Syringe SQ 10/26/21 19:27 40 mg Q12 ONE Administration Furosemide 40 mg 10/26/21 19:53 10/26/21 20:01 Furosemide 40mg/4ml Vial IV 10/26/21 19:54 40 mg ONCE ONE Administration Methylprednisolone Sodium Succinate 125 mg 10/26/21 18:04 10/26/21 18:43 Methylprednisolone Sod Succ 125mg Vial IV 10/26/21 18:05 125 mg ONCE ONE Administration ORDERS Category Date Time Status CT angio chest PE protocol Stat Cat Scan 10/26/21 20:02 Ordered Complete Blood Count Auto Diff Stat Lab 10/26/21 19:29 Results ECG Request by /Nse Stat Y 10/26/21 17:58 Ordered Medical Decision Narrative: In summary this is a 61-year-old female with history of restrictive lung disease presenting to the emergency department with cough, shortness of breath, leg swelling. Patient clinically stable on arrival. She was initially hypoxic with oxygen saturation in the 80s on room air. Placed on 2 L by nasal cannula. Concern for COPD exacerbation, fluid overload, DVT or PE. Will obtain CBC, CMP, chest x-ray, EKG, BNP, D-dimer. Patient placed on 2 L by nasal cannula. Given 125 Solu-Medrol. Laboratory results remarkable for
--- NOTE | 2021-10-26 18:02 | ECG_ITS ---
APPROVED REPORT Exam: Resting ECG HR:89 bpm ECG Measurements Heart Rate 89 AXES TX 154 P 59 QRSd 98 QRS 57 QT 333 T 0 QTc 380 Conclusion SINUS RHYTHM WITH SINUS ARRHYTHMIA NONSPECIFIC T-WAVE ABNORMALITY BORDERLINE ECG UNCONFIRMED REPORT Electronically signed by : Jason Spear MD 10/30/2021 17:32:06
--- NOTE | 2021-10-26 18:07 | PC.NURSE ---
Covid swab sent to lab
[2021-10-26 18:13] LABS: Coronavirus 19, PCR Not Detected (NotDetected); Influenza A, PCR Not Detected (NotDetected); Influenza B, PCR Not Detected (NotDetected)
--- NOTE | 2021-10-26 18:43 | PC.NURSE ---
Went in and attempted IV in the left forearm, attempted to flush and vein blew. Obtained US machine and obtained 20g in the R AC with blood return and flushed well. Gave pt steroids, flushed line with no issues. Pt advised it was hurting her arm too bad and she wanted it removed. Removed IV at this time and bandaged arm. Notified MD. BRIDGES at bedside with US machine.
--- NOTE | 2021-10-26 19:30 | PC.NURSE ---
blood sent lab.RT notified of VBG
[2021-10-26 19:37] LABS: Basophils # 0.1 K/mm3 (0-0.2); Basophils % 0.7 % (0.1-2.0); Eosinophils # 0.2 K/mm3 (0.0-0.4); Eosinophils % 1.1 % (0.1-12.0); Hematocrit 42.7 % (37.0-47.0); Hemoglobin 13.5 g/dL (12.2-16.2); Lymphocytes % 5.5 % (10-50); Mean Corpuscular HGB Conc 31.7 g/dL (31.8-35.4); Mean Corpuscular Hemoglobin 32.8 pg (27.0-31.2); Mean Corpuscular Volume 103.7 fl (81-99); Mean Platelet Volume 7.8 fl (7.4-10.4); Monocytes # 0.5 K/mm3 (0.1-1.0); Monocytes % 2.5 % (1.7-9.3); Neutrophils # 16.9 K/mm3 (1.8-7.8); Neutrophils % 90.2 % (37.0-80.0); Platelet Count 392 K/mm3 (142-424); Red Blood Count 4.12 M/mm3 (4.20-5.40); Red Cell Distribution Width 14.7 % (11.5-17.5); White Blood Count 18.8 K/mm3 (4.8-10.8)
[2021-10-26 19:40] LABS: MANUAL DIFFERENTIAL MANUAL DIFFERENTIAL (MANUAL DIFF)
[2021-10-26 19:46] LABS: Alanine Aminotransferase 28 U/L (12-78); Albumin Level 4.1 g/dl (3.5-5.0); Albumin/Globulin Ratio 1.1 (1.1-1.8); Alkaline Phosphatase 121 U/L (38-126); Anion Gap 10.4 mEq/L (5-15); Aspartate Amino Transferase 52 U/L (14-36); Bilirubin,Total 0.6 mg/dl (0.2-1.3); Blood Urea Nitrogen 13 mg/dl (7-17); Calcium 8.8 mg/dl (8.4-10.2); Carbon Dioxide 29 mmol/L (22.0-30.0); Chloride 102 mmol/L (98-107); Creatinine Clearance Estimated 48 mL/min (50-200); Estimated Glomerular Filt Rate 50 ml/min (>60); GFR (African American) 61 ML/MIN (>60); Globulin 3.7 g/dL (1.3-3.2); Glucose 102 mg/dl (74-100); Potassium 3.4 mmoL/L (3.5-5.1); Sodium 138 mmol/L (136-145); Total Protein,Serum 7.8 g/dl (6.3-8.2)
[2021-10-26 19:52] LABS: D-Dimer 1.11 ug/mL (0.0-0.5)
[2021-10-26 19:55] LABS: VBG Base Excess -5.7 mmol/L (-2.4-2.3); VBG HCO3 19.3 mmol/L (23-30); VBG Oxygen Saturation 66.2 % (50-70); VBG PH 7.39 mmol/L (7.31-7.41); VBG PO2 32.7 mmol/L (28-40); VBG Total CO2 20.4 mmol/L (23-27)
[2021-10-26 19:57] LABS: NT Pro Brain Natriuretic Pep. 2210 pg/mL (0-125)
--- NOTE | 2021-10-26 20:02 | CT_ITS ---
PROCEDURE INFORMATION: Exam: CTA Chest With Contrast Exam date and time: 10/26/2021 8:02 PM Age: 61 years old Clinical indication: Shortness of breath; Additional info: Short of breath, elevated d-dimer TECHNIQUE: Imaging protocol: Computed tomographic angiography of the chest with contrast. 3D rendering (Not supervised by radiologist): MIP and/or 3D reconstructed images were created by the technologist. Radiation optimization: All CT scans at this facility use at least one of these dose optimization techniques: automated exposure control; mA and/or kV adjustment per patient size (includes targeted exams where dose is matched to clinical indication); or iterative reconstruction. Contrast material: ISOVUE; Contrast volume: 70 ml; Contrast route: INTRAVENOUS (IV); COMPARISON: CT ANGIO CHEST PE PROTOCOL 05/09/2021 3:20 PM FINDINGS: Pulmonary arteries: Normal. No pulmonary emboli. Aorta: Mild atherosclerotic changes are seen within the thoracic aorta without evidence of aneurysm. No dissection. Lungs: Diffuse bilateral ground-glass densities/mosaic lung pattern are again seen. These appear to have worsened compared to the prior examination. Pleural spaces: Unremarkable. No pneumothorax. No pleural effusion. Heart: Cardiomegaly. Lymph nodes: Mediastinal and bilateral hilar region lymphadenopathy. The largest lymph node is located in the right paratracheal region measuring 1.9 cm in short axis diameter. Gallbladder and bile ducts: Cholecystectomy. Spleen: Multiple calcified splenic granulomata. Bones/joints: Unremarkable. No acute fracture. Soft tissues: Unremarkable. IMPRESSION: 1. Diffuse bilateral ground-glass densities/mosaic lung pattern has worsened compared to the prior examination. This is a nonspecific finding but in general could represent pneumonitis. 2. Unchanged lymphadenopathy. 3. Cardiomegaly. 4. No PE.
[2021-10-26 20:53] VITALS: O2SAT 92
[2021-10-26 21:38] LABS: Eosinophils % 1 % (0-3); Lymphocytes % 4 % (10-50); Macrocytosis 1+; Monocytes % 8 % (2-9); Neutrophils % 87 % (42-76); Platelet Estimate Normal; Total Cells Counted 100
[2021-10-26 21:45] VITALS: BP 110/72; PULSE 82; RESP 22; TEMP 37.2; O2SAT 95
--- NOTE | 2021-10-26 22:18 | PC.NURSE ---
patient up to floor via wheelchair @ this time
[2021-10-26 22:32] VITALS: BP 107/60; PULSE 77; RESP 20; TEMP 36.9; O2SAT 90
[2021-10-26 22:33] VITALS: BMI 41.8
[2021-10-26 23:50] VITALS: O2SAT 90
[2021-10-27] VITALS (19 sets, daily range): BP systolic 100–167; BP diastolic 47–94; PULSE 67–82; RESP 12–24; TEMP 36.3–37.1; O2SAT 94–98
--- NOTE | 2021-10-27 07:20 | P.CONPHA_ITS ---
[facility] Pharm[facility] VTE Monitoring - Patient Demographics Admission date: 10/26/21 Report Date: 10/27/21 Time: 07:20 Allergies/Adverse Reactions: Patient Allergies Cephalosporins Allergy (Verified 09/28/21 09:33) RASH erythromycin base Allergy (Verified 09/28/21 09:33) Hives minocycline Allergy (Verified 09/28/21 09:33) RASH penicillin G Allergy (Verified 09/28/21 09:33) Hives Sulfa (Sulfonamide Antibiotics) Allergy (Verified 09/28/21 09:33) RASH Height: 1.65 m Weight: 113.852 kg Patient Problems: Current Active Problems Respiratory failure (Acute) Restrictive lung disease (Acute) Swelling of lower extremity (Acute) - VTE Risk Labs: VTE Related Lab Results Hgb 13.5 g/dL (12.2-16.2) 10/26/21 19:29 Hct 42.7 % (37.0-47.0) 10/26/21 19:29 Plt Count 392 K/mm3 (142-424) 10/26/21 19:29 BUN 13 mg/dl (7-17) 10/26/21 19:29 Creatinine 1.10 mg/dl (0.52-1.04) H 10/26/21 19:29 Estimated Creat Clear 48 mL/min (50-200) 10/26/21 19:29 Was VTE Risk Assessment Performed: Yes VTE Score: 6 VTE Risk Level: Moderate Risk - Prophylaxis VTE Prophylaxis Ordered?: Yes Types of VTE Prophylaxis: TEDS Knee High Location of Applied Device: Bilateral Lower Extremeties
--- NOTE | 2021-10-27 07:36 | HMH.PHAINT ---
verified pt home meds with list from pharmacy
--- NOTE | 2021-10-27 07:46 | HMH.HP ---
*Admission Date: 10/26/21 *Chief complaint: Shortness of breath *History of present illness: 61-year-old female presented to the emergency department with increasing shortness of breath since Saturday. When dyspnea increased at home she began more frequent use of her inhalers. Patient felt better by Saturday evening but symptoms recurred on with associated left-sided chest discomfort that she described as pleuritic. Patient had also noticed increasing swelling in both extremities with left more than right. Patient has known restrictive lung disease and pulmonary hypertension. Patient had a CT angiogram in the ER to rule out pulmonary embolism which was negative. There was concern about DVT however so patient was admitted for venous Doppler this morning. Patient had abnormal lung exam to including wheezing and rhonchi and was given IV Solu-Medrol and started on Levaquin. Patient had just completed a prolonged course of oral antibiotics prescribed by Dr. Meza who she is following with for her restrictive lung disease. Patient uses oxygen intermittently at home but since admission has maintained sats in the 90s on 2 L/min via nasal cannula [facility] History I have reviewed the patient's past medical history: (Consult) Medical History: Reports:: Anxiety, Atherosclerotic Heart Disease, Congestive Heart Failure, Chronic Obstructive Pulmonary Disease (COPD), Coronary Artery Disease, Depression, Gall Bladder Disease, Gastroesophageal Reflux Disease(GERD), Hyperlipidemia, Hypertension, Lung Disease, Migraine, MRSA, Myocardial Infarction Denies:: Cancer, Diabetes Mellitus Type 1, Diabetes Mellitus Type 2, Internal Pacemaker, Seizures *Have you ever received a pneumonia vaccine?: No *Have you received a flu vaccine this season?: Yes Other Medical History: Reports: Anemia, Arthritis, Fibromyalgia, Hypothyroidism, Liver Disease, Sinus Problems, Thyroid Disease, Other. Denies: Blood Transfusion Reaction Laterality Cases: Right: Other, Bilateral: Carpal Tunnel Release, Tonsillectomy Other Surgeries: Yes: No Previous Surgery, Angiogram, Angioplasty, Appendectomy, Cardiac Catheterization, Cholecystectomy, Colonoscopy, Dilation and Curettage, EGD, Hysterectomy-Total, Other. No: Pacemaker Amputation: No Fractures: Yes (right ankle/tibia) - *Social History Last grade of school completed: High school graduate Smoking Status: Current every day smoker Tobacco Type: cigarettes # Packs/Day (cigarettes): 1 #Yrs smoked (if former smoker): 1 Alcohol Intake: never Alcohol Intake Frequency:: holidays/special occasions only Substance Use Type: opiates *Occupational Status:: employed Housing: house Household Members: spouse *Travel in the last 8 weeks: None - Psychiatric History Pschychiatric History:: Reports:: Anxiety, Depression Family Hx:: Cancer, Alcoholism Review of Systems - Review of Systems Review of systems:: pertinent systems reviewed and negative unless documented below - Constitutional Denies body ache(s), Denies chills, Denies fever(s), Denies lack of energy - *Respiratory Reports cough, Reports shortness of breath, Reports shortness of breath with activity, Denies change in phlegm color, Denies chest congestion - *Neurologic Denies dizziness, Denies headache(s), Denies dizziness Meds Home Medications Medication Instructions Recorded Confirmed Type omeprazole 40 mg capsule,delayed 40 mg PO DAILY #90 cap 09/20/20 10/27/21 Rx release Promethazine HCl [Phenergan 25mg 25 mg PO Q6HP PRN 03/14/21 10/27/21 History tab] Fluticasone/Salmeterol [Advair 1 puffs IH BIDRT 06/04/21 10/27/21 History 250/50mcg Diskus] Tizanidine HCl [Zanaflex 4mg 4 mg PO DAILY 06/04/21 10/27/21 History tablet] buPROPion HCL [Bupropion HCl Sr] 150 mg PO BID 06/04/21 10/27/21 History albuterol sulfate 90 mcg/actuation 1 inh INHALATION QID PRN 90 Days 10/25/21 10/27/21 Rx aerosol inhaler #8.5 g Buprenorphine HCl/Naloxone HCl 1 tab PO DAILY
--- NOTE | 2021-10-27 08:25 | SW/DCPLANNER ---
PATIENT ADMITTED TO [facility] WITH DYSPNEA.. PATIENT IS KNOW TO HAVE PULMONARY HYPERTENSION, SHE IS HOME 02 DEPENDENT. SHE RESIDES AT HOME AND HAS A PULMONARY CONSULTATION TODAY AND DEPENDING ON WHAT THIS SHOWS, SHE MAY DISCHARGE LATER IN THE AFTERNOON. ANY HOME CARE THAT IS NECESSARY WILL BE SET UP AT TIME OF DISPOSITION...
--- NOTE | 2021-10-27 09:01 | HMH.PULMCON ---
*Admission Date: 10/26/21 *Reason for consult:: Acute hypoxic respiratory failure *History of present illness: Ms. Rai is 61-year-old history of diastolic heart failure, asthma, NSIP, sleep apnea, nocturnal hypoxia following in pulmonary) no presented to the ER with worsening respiratory distress for the last 3 days improving and pulmonary was called for further management. [facility] History Medical History: Reports:: Anxiety, Atherosclerotic Heart Disease, Congestive Heart Failure, Chronic Obstructive Pulmonary Disease (COPD), Coronary Artery Disease, Depression, Gall Bladder Disease, Gastroesophageal Reflux Disease(GERD), Hyperlipidemia, Hypertension, Lung Disease, Migraine, MRSA, Myocardial Infarction Denies:: Cancer, Diabetes Mellitus Type 1, Diabetes Mellitus Type 2, Internal Pacemaker, Seizures *Have you ever received a pneumonia vaccine?: No *Have you received a flu vaccine this season?: Yes Other Medical History: Reports: Anemia, Arthritis, Fibromyalgia, Hypothyroidism, Liver Disease, Sinus Problems, Thyroid Disease, Other. Denies: Blood Transfusion Reaction Laterality Cases: Right: Other, Bilateral: Carpal Tunnel Release, Tonsillectomy Other Surgeries: Yes: No Previous Surgery, Angiogram, Angioplasty, Appendectomy, Cardiac Catheterization, Cholecystectomy, Colonoscopy, Dilation and Curettage, EGD, Hysterectomy-Total, Other. No: Pacemaker Amputation: No Fractures: Yes (right ankle/tibia) - *Social History Last grade of school completed: High school graduate Smoking Status: Current every day smoker Tobacco Type: cigarettes # Packs/Day (cigarettes): 1 #Yrs smoked (if former smoker): 1 Alcohol Intake: never Alcohol Intake Frequency:: holidays/special occasions only Substance Use Type: opiates *Occupational Status:: employed Housing: house Household Members: spouse *Travel in the last 8 weeks: None - Psychiatric History Pschychiatric History:: Reports:: Anxiety, Depression Family Hx:: Cancer, Alcoholism ROS - Cons Denies anorexia, Denies body ache(s), Denies chills - Eyes Denies change in vision - ENT Denies bleeding gums, Denies nasal congestion - Card Reports shortness of breath, Reports shortness of breath with activity - Resp Respiratory: Reports chest congestion, Reports cough, Reports non-productive cough, Denies excessive phlegm production - GI Gastrointestingal: Denies: abdominal pain - Psych Denies thoughts of hurting/killing others, Denies thoughts of hurting/killing yourself Meds Home Medications Medication Instructions Recorded Confirmed Type omeprazole 40 mg capsule,delayed 40 mg PO DAILY #90 cap 09/20/20 10/27/21 Rx release Promethazine HCl [Phenergan 25mg 25 mg PO Q6HP PRN 03/14/21 10/27/21 History tab] Fluticasone/Salmeterol [Advair 1 puffs IH BIDRT 06/04/21 10/27/21 History 250/50mcg Diskus] Tizanidine HCl [Zanaflex 4mg 4 mg PO DAILY 06/04/21 10/27/21 History tablet] buPROPion HCL [Bupropion HCl Sr] 150 mg PO BID 06/04/21 10/27/21 History albuterol sulfate 90 mcg/actuation 1 inh INHALATION QID PRN 90 Days 10/25/21 10/27/21 Rx aerosol inhaler #8.5 g Buprenorphine HCl/Naloxone HCl 1 tab PO DAILY 10/27/21 10/27/21 History [Buprenorphine-Nalox 8-2 mg Tab] Furosemide [Furosemide 40MG tAB*] 40 mg PO DAILY 10/27/21 10/27/21 History Gabapentin 800 mg PO QID 10/27/21 10/27/21 History Spironolactone 50 mg PO DAILY 10/27/21 10/27/21 History Allergies Allergy/AdvReac Type Severity Reaction Status Date / Time Cephalosporins Allergy RASH Verified 09/28/21 09:33 erythromycin base Allergy Hives Verified 09/28/21 09:33 minocycline Allergy RASH Verified 09/28/21 09:33 penicillin G Allergy Hives Verified 09/28/21 09:33 Sulfa (Sulfonamide Allergy RASH Verified 09/28/21 09:33 Antibiotics) Exam - Constitutional Constitutional:: Present: no acute distress, comfortable - HENMT Exam HENMT: Present: normocephalic, atraumatic - Eye Exam Eyes:: Present: nor
[2021-10-27 09:16] LABS: Adenovirus,PCR Not Detected (NotDetected); Bordetella Pertussis Not Detected (NotDetected); Chlamydophila Pneumoniae, PCR Not Detected (NotDetected); Coronavirus 229E Not Detected (NotDetected); Coronavirus NL63 Not Detected (NotDetected); Coronavirus OC43 Not Detected (NotDetected); Coronovirus HKU1,PCR Not Detected (NotDetected); Human Metapneumovirus Not Detected (NotDetected); Influenza A, PCR Not Detected (NotDetected); Influenza AH1, 2009 Not Detected (NotDetected); Influenza AH1, PCR Not Detected (NotDetected); Influenza AH3,PCR Not Detected (NotDetected); Influenza B, PCR Not Detected (NotDetected); Mycoplasma Pneumoniae, PCR Not Detected (NotDetected); Parainfluenza 1, PCR Not Detected (NotDetected); Parainfluenza 2, PCR Not Detected (NotDetected); Parainfluenza 3, PCR Not Detected (NotDetected); Parainfluenza 4, PCR Not Detected (NotDetected); Respiratory Syncytial Virus Not Detected (NotDetected); Rhinovirus/Enterovirus Not Detected (NotDetected)
[2021-10-27 09:55] LABS: Lactate Dehydrogenase 413 U/L (313-618)
[2021-10-27 10:01] LABS: C-Reactive Protein 190.1 mg/L (0-4)
--- NOTE | 2021-10-27 11:00 | CA_ITS ---
APPROVED REPORT EXAM: Comprehensive 2D, Doppler, and color-flow Echocardiogram Train Crew Member: Rosa Samnaiego RT(R) Ht: 5 ft 5 in Wt: 251lbs BSA: 2.18 BP: 000/00 mmHg Indications: COPD, smoker, edema, HTN, SOB, SOTELO, obesity, hyperlipidemia, home O2, CAD, GERD. 2D Dimensions LVOT 2.03 cm (M/F) 1.5-2.5 LA Volume 72.30 mL LA Volume Index 33.17 mL/m2 (M/F) 16-34 M-Mode Dimensions RVDd 2.85 cm (0.9-2.6) LA Diam 4.34 cm (1.9-4.0) LVDd 4.67 cm (3.5-5.7) Ao Diam 2.52 cm (2.0-3.7) LVDs 3.64 cm (3.5-5.7) IVSd 1.38 cm (0.6-1.1) PWd 1.23 cm (0.6-1.1) EF (Teich) 44.50% FS 22.10% EDV (Teich) 100.80 mL ESV (Teich) 55.90 mL LV Diastology E Decel Time 207.00 (160-240 msec) E/A Ratio 1.0 MED E' 10.90 (< 7 cm/sec) E'/MED E' Ratio 10.61 (>14) LAT E' 10.30 (<10 cm/sec) E/LAT E' Ratio 11.23 (>14) Mitral Valve MV E Max Xiang. 116.00 (40-130 cm/s) MV A Velocity 120.00 (40-130 cm/s) E/A Ratio 0.97 MV Decel. Time 207.00 (160-240 ms) MV PHT 61.00 ms Tricuspid Valve TR P. Velocity 358.00 cm/s RAP Estimate 15.00 mmHg RVSP 66.40 mmHg Left Ventricle Left atrium is mildly enlarged, left ventricle is normal size, mild concentric left ventricular hypertrophy, visually estimated ejection fraction 55% with no regional wall motion abnormality, grade 1 diastolic dysfunction seen without tissue Doppler evidence of raise left atrial pressure. Right Ventricle Right atrium and right ventricle are mildly enlarged with normal contractility. Aortic Valve Aortic valve is minimally thickened and fibrosed, there is no aortic stenosis or aortic insufficiency. Mitral Valve Mitral valve grossly normal there is trace mitral regurgitation. Tricuspid Valve Tricuspid valve is grossly normal, there is trace tricuspid regurgitation, calculated right ventricular systolic pressure is 62 mmHg. Pulmonic Valve Pulmonic valve is poorly visualized. Great Vessels Aortic root is normal size. Inferior vena cava is mildly dilated with normal inspiratory collapse. Pericardium No significant pericardial effusion Conclusion 1. Mild biatrial enlargement, normal left ventricular size, mild concentric left ventricular hypertrophy, visually estimated ejection fraction 55% with no regional wall motion abnormality, grade 1 diastolic dysfunction seen without tissue Doppler evidence of raise left atrial pressure. 2. Mildly enlarged right ventricle with normal contractility. 3. Trace mitral and tricuspid regurgitation. Calculated right ventricular systolic pressure is 62 mmHg. 4. No significant pericardial effusion noted. 5. Inferior vena cava is mildly dilated with normal inspiratory collapse. Electronically signed by : Khalif Hutchinson MD 10/27/2021 14:59:25
[2021-10-27 11:27] LABS: Troponin I < 0.01 ng/ml (0.00-0.034)
--- NOTE | 2021-10-27 12:11 | HMH.CNCARD ---
History of Present Illness Consult date: 10/27/21 Requesting physician: Jason Khan Consult reason: shortness of breath Chief complaint: soa History of present illness: This is a 61-year-old white female who presented to the emergency department with increased shortness of breath that started on Saturday. She states that she started to take her inhalers at home more frequently but her shortness of breath just continued to worsen. She states that she then had sudden onset of edema in her bilateral lower extremities. She states that the left is more than the right. The patient has known pulmonary hypertension and recently had a right cardiac catheterization with Dr. Gore that showed she has diastolic dysfunction with moderate pulmonary hypertension. The patient was on Lasix and Aldactone at home. She is in the hospital with an acute exacerbation of her diastolic congestive heart failure. She states that she does have some pressure in her chest at times when she is really short of breath. She denies any fever, chills, nausea, vomiting, diarrhea, PND or orthopnea. [facility] History I have reviewed the patient's past medical history: Yes Medical History: Reports:: Anxiety, Atherosclerotic Heart Disease, Congestive Heart Failure, Chronic Obstructive Pulmonary Disease (COPD), Coronary Artery Disease, Depression, Gall Bladder Disease, Gastroesophageal Reflux Disease(GERD), Hyperlipidemia, Hypertension, Lung Disease, Migraine, MRSA, Myocardial Infarction Denies:: Cancer, Diabetes Mellitus Type 1, Diabetes Mellitus Type 2, Internal Pacemaker, Seizures *Have you ever received a pneumonia vaccine?: No *Have you received a flu vaccine this season?: Yes Other Medical History: Reports: Anemia, Arthritis, Fibromyalgia, Hypothyroidism, Liver Disease, Sinus Problems, Thyroid Disease, Other. Denies: Blood Transfusion Reaction Laterality Cases: Right: Other, Bilateral: Carpal Tunnel Release, Tonsillectomy Other Surgeries: Yes: No Previous Surgery, Angiogram, Angioplasty, Appendectomy, Cardiac Catheterization, Cholecystectomy, Colonoscopy, Dilation and Curettage, EGD, Hysterectomy-Total, Other. No: Pacemaker Amputation: No Fractures: Yes (right ankle/tibia) - *Social History Last grade of school completed: High school graduate Smoking Status: Current every day smoker Tobacco Type: cigarettes # Packs/Day (cigarettes): 1 #Yrs smoked (if former smoker): 1 Alcohol Intake: never Alcohol Intake Frequency:: holidays/special occasions only Substance Use Type: opiates *Occupational Status:: employed Housing: house Household Members: spouse *Travel in the last 8 weeks: None - Psychiatric History Pschychiatric History:: Reports:: Anxiety, Depression Family Hx:: Cancer, Alcoholism Meds Home Medications Medication Instructions Recorded Confirmed Type omeprazole 40 mg capsule,delayed 40 mg PO DAILY #90 cap 09/20/20 10/27/21 Rx release Promethazine HCl [Phenergan 25mg 25 mg PO Q6HP PRN 03/14/21 10/27/21 History tab] Fluticasone/Salmeterol [Advair 1 puffs IH BIDRT 06/04/21 10/27/21 History 250/50mcg Diskus] Tizanidine HCl [Zanaflex 4mg 4 mg PO DAILY 06/04/21 10/27/21 History tablet] buPROPion HCL [Bupropion HCl Sr] 150 mg PO BID 06/04/21 10/27/21 History albuterol sulfate 90 mcg/actuation 1 inh INHALATION QID PRN 90 Days 10/25/21 10/27/21 Rx aerosol inhaler #8.5 g Buprenorphine HCl/Naloxone HCl 1 tab PO DAILY 10/27/21 10/27/21 History [Buprenorphine-Nalox 8-2 mg Tab] Furosemide [Furosemide 40MG tAB*] 40 mg PO DAILY 10/27/21 10/27/21 History Gabapentin 800 mg PO QID 10/27/21 10/27/21 History Spironolactone 50 mg PO DAILY 10/27/21 10/27/21 History Allergies Allergy/AdvReac Type Severity Reaction Status Date / Time Cephalosporins Allergy RASH Verified 09/28/21 09:33 erythromycin base Allergy Hives Verified 09/28/21 09:33 minocycline Allergy RASH Verified 09/28/21 09:33 penicillin G Allergy Hives Verified 09/28/21 09:33 Sulfa
--- NOTE | 2021-10-27 14:52 | HMH.ANESCL ---
[facility] Anesthesia Checklist - Structural Data Admitted From: Inpatient Planned Operative Procedure/s: bronchoscopy Consent for Planned Operative Procedure(s) Verified: Yes - Additional verifications Anesthesia Reactions: No (nausea) Hx Blood Transfusions: No Blood Transfusion Reaction: No - Airway Assessment C-Spine Mobility Assessed: Yes TMJ Mobility Assessed: Yes Dentition: Dentures-good fit - Neurological Assessment Level of Consciousness: Awake, Alert, Appropriate - Anesthesia Plan Anesthesia Risk discussed: Yes Anesthesia Plan: Verified ASA Class: III Anesthesia Type: General [facility] History I have reviewed the patient's past medical history: Yes Medical History: Reports:: Anxiety, Atherosclerotic Heart Disease, Congestive Heart Failure, Chronic Obstructive Pulmonary Disease (COPD), Coronary Artery Disease, Depression, Gall Bladder Disease, Gastroesophageal Reflux Disease(GERD), Hyperlipidemia, Hypertension, Lung Disease, Migraine, MRSA, Myocardial Infarction Denies:: Cancer, Diabetes Mellitus Type 1, Diabetes Mellitus Type 2, Internal Pacemaker, Seizures *Have you ever received a pneumonia vaccine?: No *Have you received a flu vaccine this season?: Yes Other Medical History: Reports: Anemia, Arthritis, Fibromyalgia, Hypothyroidism, Liver Disease, Sinus Problems, Thyroid Disease, Other. Denies: Blood Transfusion Reaction Anesthesia experience/problems:: none Laterality Cases: Right: Other, Bilateral: Carpal Tunnel Release, Tonsillectomy Other Surgeries: Yes: No Previous Surgery, Angiogram, Angioplasty, Appendectomy, Cardiac Catheterization, Cholecystectomy, Colonoscopy, Dilation and Curettage, EGD, Hysterectomy-Total, Other. No: Pacemaker Amputation: No Fractures: Yes (right ankle/tibia) - *Social History Last grade of school completed: High school graduate Smoking Status: Current every day smoker Tobacco Type: cigarettes # Packs/Day (cigarettes): 1 #Yrs smoked (if former smoker): 1 Alcohol Intake: never Alcohol Intake Frequency:: holidays/special occasions only Substance Use Type: opiates *Occupational Status:: employed Housing: house Household Members: spouse *Travel in the last 8 weeks: None - Psychiatric History Pschychiatric History:: Reports:: Anxiety, Depression Family Hx:: Cancer, Alcoholism
--- NOTE | 2021-10-27 15:08 | XR_ITS ---
FINAL REPORT CLINICAL HISTORY: BRONCH WITH BIOPSY IN OR FINDINGS: FLUORO TIME PROCEDURE: Fluoroscopy in the operating room. FINDINGS: Fluoroscopy time was provided by the radiology department for the clinical service. One film was obtained. Fluoroscopy exposure time: 2.06 minutes IMPRESSION: See above Reviewed, Interpreted and Dictated by Matias Camara III, MD Transcribed by Jennifer Ward Authenticated by Matias Camara III, MD on 10/30/2021 10:33:04 AM [facility]
--- NOTE | 2021-10-27 15:15 | HMH.BRONCH ---
- Procedure: Date: 10/27/21 Patient Date of :: 1960 Procedure Performed:: Bronchoscopy with airway examination, bronchoalveolar lavage and transbronchial biopsy Indications:: Atypical pneumonia Performing Provider:: Eliecer Meza MD Referring Provider:: Dr. Khan Sedation:: General anesthesia Procedure:: Bronchoscopy with airway examination, bronchoalveolar lavage and transbronchial biopsy: Clean diagnostic bronchoscopy was advanced the ET tube and airways were examined up to subsegmental bronchi. Airways appeared clean. No obvious evidence of increased secretions, erythema, mucous plugging, hemorrhage/old blood clots noted. Bronchoalveolar lavage with 3 sequential aliquots of 20 cc normal saline in both right upper lobe and left upper lobe. A total of 40 cc return was obtained in the right upper lobe and 35 cc was obtained in the left upper lobe. No evidence of diffuse alveolar hemorrhage noted. The return fluid appeared clear. Both BAL fluids were mixed into 1 specimen sample and was sent as right upper lobe lavage for BAL cell count and differential, Gram stain, AFB fungal stain culture along with cytopathology. Transbronchial biopsy was performed the left lingula, a total of 9 biopsies were performed, total of 4 were sent to bacterial fungal AFB stain and culture in Normal saline and 5 biopsies were sent in formalin for cytopathological examination. Patient tolerated the procedure well. Follow the final results and clinical improvement will follow in clinic in 7 days post procedure. Findings:: Please see the procedure note Recommendations:: Please see the procedure note and progress note from today Complications:: None Estimated blood obtained (mL): 5
--- NOTE | 2021-10-27 15:28 | HMH.ANESI ---
[facility] Anesthesia Record Part I Intake, IV Amount: 500 Estimated blood loss (mL): 0 Urine output (mL): 0 Blood Pressure: 117/68 SaO2: 96 Pulse Rate: 76 Respiratory Rate: 12 Temperature: 97.4 F Patient is:: Awake, Stable Stable to PACU at:: 15:15
--- NOTE | 2021-10-27 15:48 | SUR.PHASEI ---
1544- detailed report called to jayme lewis on [facility]. 1546- pt left in stable condition under jayme lewis care on [facility] floor.
--- NOTE | 2021-10-27 21:46 | CA_ITS ---
FINAL REPORT TECHNIQUE: Ultrasound images of the deep venous system were obtained from the left groin to the calf veins. CLINICAL HISTORY: left leg swelling FINDINGS: The deep venous system is normally compressible. Normal flow is identified. IMPRESSION: No evidence of left lower extremity DVT. Reviewed, Interpreted and Dictated by Robe Yost MD Transcribed by Jennifer Ward Authenticated by Robe Yost MD on 10/27/2021 10:23:29 AM [facility]
[2021-10-28] VITALS: BP 109/57; PULSE 64; RESP 18; TEMP 36.7; O2SAT 94
[2021-10-28 04:00] VITALS: BP 115/60; PULSE 76; RESP 20; TEMP 36.4; O2SAT 94
--- NOTE | 2021-10-28 04:36 | PC.NURSE ---
PT HAS SLEPT WELL TONIGHT,LUNGS CLEAR WITH EXPIRTORY WHEEZING THIS AM.SAT LEVEL WAS 81% SINCE SHE TOOK HER OXYGEN OFF TO GO TO BATHROOM,WHEN SHE RETURNED AND APPLIED HER OXYGEN BACK ON AT 2 LITERS,SAT.LEVEL 95%,NO EDEMA NOTED IN BLE THIS AM.PT HAS HAD A TOTAL OF 1900ML OUTPUT
[2021-10-28 05:00] VITALS: BMI 44.7
[2021-10-28 07:54] LABS: Anion Gap 8.7 mEq/L (5-15); Blood Urea Nitrogen 17 mg/dl (7-17); Calcium 9.1 mg/dl (8.4-10.2); Carbon Dioxide 31 mmol/L (22.0-30.0); Chloride 103 mmol/L (98-107); Creatinine Clearance Estimated 51 mL/min (50-200); Estimated Glomerular Filt Rate 64 ml/min (>60); GFR (African American) 77 ML/MIN (>60); Glucose 167 mg/dl (74-100); Potassium 3.7 mmoL/L (3.5-5.1); Sodium 139 mmol/L (136-145)
[2021-10-28 07:59] LABS: C-Reactive Protein 101.3 mg/L (0-4)
[2021-10-28 08:00] VITALS: BP 125/56; PULSE 75; RESP 16; TEMP 36.4; O2SAT 97
--- NOTE | 2021-10-28 08:40 | HMH.DCSUM ---
General - General Admission date:: 10/26/21 Discharge date: 10/28/21 HPI HPI: 61-year-old female presented to the emergency department with increasing shortness of breath since Saturday. When dyspnea increased at home she began more frequent use of her inhalers. Patient felt better by Saturday evening but symptoms recurred on with associated left-sided chest discomfort that she described as pleuritic. Patient had also noticed increasing swelling in both extremities with left more than right. Patient has known restrictive lung disease and pulmonary hypertension. Patient had a CT angiogram in the ER to rule out pulmonary embolism which was negative. There was concern about DVT however so patient was admitted for venous Doppler this morning. Patient had abnormal lung exam to including wheezing and rhonchi and was given IV Solu-Medrol and started on Levaquin. Patient had just completed a prolonged course of oral antibiotics prescribed by Dr. Meza who she is following with for her restrictive lung disease. Patient uses oxygen intermittently at home but since admission has maintained sats in the 90s on 2 L/min via nasal cannula Hospital Course Hospital Course: Patient was admitted for acute respiratory failure and lower extremity swelling. DVT was ruled out on the morning of the with a venous Doppler. Patient had signs of fluid overload and has known right heart failure. She was given intravenous Lasix with excellent response of over 2 L of urine output. Pulmonology was consulted and patient underwent bronchoscopy. Patient will follow up on bronchoscopy results as an outpatient. Pulmonology recommended 2 weeks of prednisone 40 mg daily plus antibiotics for 5 days. Patient's O2 sats were maintained on 2 L which patient has access to at home. Patient was discharged home on the . Objective Vital signs: Temp Pulse Resp BP Pulse Ox 97.6 F 75 16 125/56 L 97 10/28/21 08:00 10/28/21 08:00 10/28/21 08:00 10/28/21 08:00 10/28/21 08:00 no acute distress - *Routine Respiratory Exam Present: rhonchi, wheezes, distant breath sounds - *Routine Cardiovascular Exam Present: RRR, Normal S1, Normal S2 Results Labs on day of discharge: Labs from last 24 hours 10/28/21 10/27/21 10/27/21 06:10 09:30 09:30 Sodium 139 Potassium 3.7 Chloride 103 Carbon Dioxide 31 H Anion Gap 8.7 BUN 17 D Creatinine 0.90 Estimated Creat Clear 51 Estimated GFR 64 Est GFR ( Amer) 77 D Glucose 167 H Calcium 9.1 Lactate Dehydrogenase 413 Troponin I < 0.01 C-Reactive Protein 101.3 H 190.1 H Chlamy pneumoniae PCR Adenovirus (PCR) B. pertussis DNA (PCR) Coronavirus OC43 (PCR) Coronavirus HKU1 (PCR) Coronavirus 229E (PCR) Coronavirus NL63 (PCR) Human Metapneumovir PCR Influenza A (H1) PCR Influ A () PCR Influenza A (H3) PCR Influenza Type A (PCR) Influenza Type B (PCR) M. pneumoniae (PCR) Parainfluenza 1 (PCR) Parainfluenza 2 (PCR) Parainfluenza 3 (PCR) Parainfluenza 4 (PCR) RSV (PCR) Entero/Rhino (PCR) 10/27/21 09:11 Sodium Potassium Chloride Carbon Dioxide Anion Gap BUN Creatinine Estimated Creat Clear Estimated GFR Est GFR ( Amer) Glucose Calcium Lactate Dehydrogenase Troponin I C-Reactive Protein Chlamy pneumoniae PCR Not detected Adenovirus (PCR) Not detected B. pertussis DNA (PCR) Not detected Coronavirus OC43 (PCR) Not detected Coronavirus HKU1 (PCR) Not detected Coronavirus 229E (PCR) Not detected Coronavirus NL63 (PCR) Not detected Human Metapneumovir PCR Not detected Influenza A (H1) PCR Not detected Influ A () PCR Not detected Influenza A (H3) PCR Not detected Influenza Type A (PCR) Not detected Influenza Type B (PCR) Not detected M. pneumoniae (PCR) Not detected Parainfluenza 1 (PCR) Not detected Parai
[2021-10-28 10:55] VITALS: O2SAT 98
[2021-10-28 11:38] VITALS: BP 128/63; PULSE 72; RESP 18; TEMP 36.8; O2SAT 97
[2021-10-30 10:45] VITALS: BP 118/63; PULSE 72; TEMP 36.4
--- NOTE | 2021-10-30 10:45 | HMH.ANESII ---
[facility] Anesthesia Record Part II Discharge Time: 15:45 Destination: Medical Surgical Department PACU nurse assessment reviewed?: Yes Patient Condition:: Good Anesthesia Complications:: None Swallowing reflex intact?: Yes Cyanosis?: No Blood Pressure: 118/63 Pulse Rate: 72 Temperature: 97.5 F Mental Status: Alert & Oriented Pain level:: 7 Nausea and/or vomitting:: None Intake, IV Amount: 0
== END 2021-10-28 13:20 | disposition home or self-care (01) | DRG 166 ==
LOC: ER 20:15 → 2ND 20:56
PROVIDERS: Internal Medicine Pulmonary Disease; Nurse Practitioner Family; Admitting Provider Family Medicine; Emergency Provider Emergency Medicine; PCP Family Medicine; Visit Provider Family Medicine
PROC: 0BBH8ZX Excision of Lung Lingula, Via Natural or Artificial Opening Endoscopic, Diagnostic (ICD-10-PCS; principal; 2021-10-27 15:00)
DX: J96.21 Acute and chronic respiratory failure with hypoxia (principal); J18.9 Pneumonia, unspecified organism; I50.33 Acute on chronic diastolic (congestive) heart failure; J44.0 Chronic obstructive pulmonary disease with (acute) lower respiratory infection; I50.810 Right heart failure, unspecified; I27.20 Pulmonary hypertension, unspecified; I25.10 Atherosclerotic heart disease of native coronary artery without angina pectoris; Z79.899 Other long term (current) drug therapy; Z20.822 Contact with and (suspected) exposure to COVID-19; I11.0 Hypertensive heart disease with heart failure; F41.9 Anxiety disorder, unspecified; F17.210 Nicotine dependence, cigarettes, uncomplicated; E03.9 Hypothyroidism, unspecified; M79.7 Fibromyalgia; G47.30 Sleep apnea, unspecified; F32.A Depression, unspecified; M79.89 Other specified soft tissue disorders
CPT/HCPCS: 31629; 31624; 36415; 71045; 71275; 80048; 80053; 82803; 83615; 83880; 84484; 85007; 85025; 85378; 86140; 87070; 87102; 87116; 87186; 87205; 87206; 87486; 87581; 87632; 87798; 88305; 89051; 93005; 93306; 93971; 94640; 94760; 94761; 96365; 96372; 96375; 99284; C9803; J1956; J2710; Q9967; U0003; U0005

== ENCOUNTER 2021-11-27 16:26 | Emergency (ER) | payer OTHER, SELFPAY ==
[2021-11-27 16:26] VITALS: BP 122/58; PULSE 86; RESP 16; TEMP 37.3; O2SAT 96; BMI 43.4
[2021-11-27 16:30] VITALS: BP 118/62; PULSE 89; RESP 18; O2SAT 95
--- NOTE | 2021-11-27 16:59 | CT_ITS ---
PROCEDURE INFORMATION: Exam: CT Head Without Contrast Exam date and time: 11/27/2021 4:59 PM Age: 61 years old Clinical indication: Other: Syncope TECHNIQUE: Imaging protocol: Computed tomography of the head without contrast. Radiation optimization: All CT scans at this facility use at least one of these dose optimization techniques: automated exposure control; mA and/or kV adjustment per patient size (includes targeted exams where dose is matched to clinical indication); or iterative reconstruction. COMPARISON: CT HEAD/BRAIN WO CON 06/04/2021 11:19 PM FINDINGS: Brain: Normal. No hemorrhage. Unremarkable white matter. No mass effect. Cerebral ventricles: No ventriculomegaly. Paranasal sinuses: Visualized sinuses are unremarkable. No fluid levels. Mastoid air cells: Visualized mastoid air cells are well aerated. Bones/joints: Unremarkable. No acute fracture. Soft tissues: Unremarkable. IMPRESSION: No acute intracranial abnormality.
[2021-11-27 17:00] VITALS: BP 124/75; PULSE 84; RESP 18; O2SAT 95
[2021-11-27 17:23] LABS: Basophils # 0.1 K/mm3 (0-0.2); Basophils % 0.8 % (0.1-2.0); Eosinophils # 0.2 K/mm3 (0.0-0.4); Eosinophils % 1.1 % (0.1-12.0); Hematocrit 43.4 % (37.0-47.0); Hemoglobin 13.6 g/dL (12.2-16.2); Lymphocytes # 1.1 K/mm3 (0.7-4.5); Lymphocytes % 7.4 % (10-50); Mean Corpuscular HGB Conc 31.4 g/dL (31.8-35.4); Mean Corpuscular Hemoglobin 32.3 pg (27.0-31.2); Mean Platelet Volume 7.9 fl (7.4-10.4); Monocytes # 0.6 K/mm3 (0.1-1.0); Monocytes % 3.7 % (1.7-9.3); Neutrophils # 13.2 K/mm3 (1.8-7.8); Neutrophils % 86.9 % (37.0-80.0); Platelet Count 397 K/mm3 (142-424); Red Blood Count 4.21 M/mm3 (4.20-5.40); Red Cell Distribution Width 15.4 % (11.5-17.5); White Blood Count 15.2 K/mm3 (4.8-10.8)
[2021-11-27 17:26] LABS: MANUAL DIFFERENTIAL MANUAL DIFFERENTIAL (MANUAL DIFF)
[2021-11-27 17:42] LABS: Alanine Aminotransferase 27 U/L (12-78); Albumin/Globulin Ratio 1.1 (1.1-1.8); Alkaline Phosphatase 111 U/L (38-126); Anion Gap 10.6 mEq/L (5-15); Aspartate Amino Transferase 49 U/L (14-36); Bilirubin,Total 0.5 mg/dl (0.2-1.3); Blood Urea Nitrogen 15 mg/dl (7-17); Calcium 9.2 mg/dl (8.4-10.2); Carbon Dioxide 30 mmol/L (22.0-30.0); Chloride 103 mmol/L (98-107); Creatinine Clearance Estimated 43 mL/min (50-200); Estimated Glomerular Filt Rate 46 ml/min (>60); GFR (African American) 55 ML/MIN (>60); Globulin 3.7 g/dL (1.3-3.2); Glucose 98 mg/dl (74-100); Potassium 4.6 mmoL/L (3.5-5.1); Sodium 139 mmol/L (136-145); Total Protein,Serum 7.7 g/dl (6.3-8.2)
[2021-11-27 17:45] LABS: Lymphocytes % 13 % (10-50); Monocytes % 5 % (2-9); Neutrophils % 82 % (42-76); Total Cells Counted 100
[2021-11-27 17:46] LABS: Macrocytosis 1+; Platelet Estimate Normal
[2021-11-27 17:53] LABS: Troponin I 0.04 ng/ml (0.00-0.034)
--- NOTE | 2021-11-27 18:10 | HMH.EDGENADL ---
ED Disposition Clinical Impression: Syncope Disposition: Home, Self-Care Condition on Discharge: Good Instructions: DI for Syncope in Adults (Fainting) Additional Instructions: Please follow up with your primary care physician in 2-3 days for further management. You will be called and notified if your cardiac lab level is abnormal and you should immediately return to the ED. Please return if you pass out again, difficulty breathing, chest pain or any other concerns. Referrals: Jason Khan MD [Primary Care Provider] - Time of Disposition: 17:00 - Critical Care Critical Care Time: No Attestation: On 11/27/21, the high probability of a clinically significant, sudden or life threatening deterioration of the following system(s) required my full and direct attention, intervention and personal management. The time I documented below is in addition to time spent performing reported procedures but includes the following listed in this critical care notation. Medical Decision Making - Medical Records Medical records reviewed: Yes: I reviewed the patient's medical records. - Adolph Inquiry Pt receiving controlled substance: No Vital Signs: 11/27/21 16:26 11/27/21 16:30 11/27/21 17:00 Temperature 99.1 F Temperature Source Oral Pulse Rate 89 84 Pulse Rate [Left Radial] 86 Respiratory Rate 16 18 18 Blood Pressure 118/62 124/75 Blood Pressure [Right Arm] 122/58 L Blood Pressure Mean 86 96 Blood Pressure Mean [Right Arm] 79 Blood Pressure Source Blood Pressure Source [Right Arm] Automatic Cuff Blood Pressure Position Blood Pressure Position [Right Arm] Sitting 02 Sat by Pulse Oximetry 96 95 95 Oxygen Delivery Method Nasal Cannula Oxygen Flow Rate (LPM) 2 11/27/21 20:17 Temperature 98.9 F Temperature Source Oral Pulse Rate 71 Pulse Rate [Left Radial] Respiratory Rate 18 Blood Pressure 125/76 Blood Pressure [Right Arm] Blood Pressure Mean Blood Pressure Mean [Right Arm] Blood Pressure Source Automatic Cuff Blood Pressure Source [Right Arm] Blood Pressure Position Sitting Blood Pressure Position [Right Arm] 02 Sat by Pulse Oximetry Oxygen Delivery Method Room Air Oxygen Flow Rate (LPM) - Lab Data Lab results reviewed: Yes: I reviewed the patient's lab results. Lab Results 11/27/21 17:15: WBC 15.2 H, RBC 4.21, Hgb 13.6, Hct 43.4, MCV 103.0 H, MCH 32.3 H, MCHC 31.4 L, RDW 15.4, Plt Count 397, MPV 7.9, Neut % (Auto) 86.9 H, Lymph % (Auto) 7.4 L, [place] % (Auto) 3.7, Eos % (Auto) 1.1, Baso % (Auto) 0.8, Neut # (Auto) 13.2 H, Lymph # (Auto) 1.1, [place] # (Auto) 0.6, Eos # (Auto) 0.2, Baso # (Auto) 0.1, Total Counted 100, Neutrophils % (Manual) 82 H, Lymphocytes % (Manual) 13, Monocytes % (Manual) 5, Platelet Estimate Normal, Macrocytosis 1+ 11/27/21 17:15: Sodium 139, Potassium 4.6, Chloride 103, Carbon Dioxide 30, Anion Gap 10.6, BUN 15, Creatinine 1.20 H, Estimated Creat Clear 43, Estimated GFR 46 L, Est GFR ( Amer) 55 L, Glucose 98, Calcium 9.2, Total Bilirubin 0.5, AST 49 H, ALT 27, Alkaline Phosphatase 111, Troponin I 0.04 H, Total Protein 7.7, Albumin 4.0, Globulin 3.7 H, Albumin/Globulin Ratio 1.1 11/27/21 19:58: Troponin I 0.05 H Result diagrams: 11/27/21 17:15 11/27/21 17:15 Orders (Tests/Meds): ED MEDICATIONS Discontinued Medications Generic Name Dose Route Start Last Admin Trade Name Freq PRN Reason Stop Dose Admin Acetaminophen 1,000 mg 11/27/21 17:00 11/27/21 18:31 Acetaminophen 500mg Tab PO 11/27/21 17:01 1,000 mg ONCE ONE Administration Ibuprofen 600 mg 11/27/21 17:01 11/27/21 18:31 Ibuprofen 600 Mg Tablet PO 11/27/21 17:02 600 mg ONCE ONE Administration ORDERS Category Date Time Status Troponin I Q3H Lab 11/27/21 23:00 Ordered Medical Decision Narrative: Miss Rai is a 61 yo female w/ PMH for COVID 09/2021 requires oxygen at baseline due to covid, who presents with syncope after being found in her care wit
[2021-11-27 20:17] VITALS: BP 125/76; PULSE 71; RESP 18; TEMP 37.2; O2SAT 96
[2021-11-27 20:23] LABS: Troponin I 0.05 ng/ml (0.00-0.034)
== END 2021-11-27 20:22 | disposition home or self-care (01) ==
PROVIDERS: Emergency Provider Student in an Organized Health Care Education/Training Program; PCP Family Medicine
DX: R55 Syncope and collapse (principal); Z86.16 Personal history of COVID-19; Z99.81 Dependence on supplemental oxygen; F17.210 Nicotine dependence, cigarettes, uncomplicated; Z88.0 Allergy status to penicillin; Z88.2 Allergy status to sulfonamides
CPT/HCPCS: 36415; 70450; 80053; 84484; 85007; 85025; 99284

== ENCOUNTER 2021-11-29 15:58 | Emergency (ER) | payer OTHER, SELFPAY ==
[2021-11-29 16:11] VITALS: BP 134/65; PULSE 84; RESP 28; O2SAT 88; BMI 43.4
--- NOTE | 2021-11-29 16:17 | XR_ITS ---
PROCEDURE INFORMATION: Exam: XR Chest Exam date and time: 11/29/2021 4:17 PM Age: 61 years old Clinical indication: Shortness of breath; Additional info: SOB TECHNIQUE: Imaging protocol: XR of the chest. Views: 2 views. COMPARISON: 1. CR XR CHEST PORTABLE 10/26/2021 6:[address] ANGIO CHEST PE PROTOCOL 10/26/2021 8:23 PM FINDINGS: Lungs: Coarse interstitial markings and hazy bilateral pulmonary appearance a similar appearance and may reflect the extensive ground-glass disease evident comparison CT studies. Active infection is not excluded here. There is no new dense lobar pneumonia. Pleural spaces: Unremarkable. No pleural effusion. No pneumothorax. Heart/Mediastinum: Enlarged heart again evident. Bones/joints: Unremarkable. IMPRESSION: Coarse interstitial markings and hazy bilateral pulmonary appearance a similar appearance and may reflect the extensive ground-glass disease evident on comparison CT studies. Active infection is not excluded here. There is no new dense lobar pneumonia.
--- NOTE | 2021-11-29 16:27 | PC.NURSE ---
pt to xray
[2021-11-29 16:29] LABS: Basophils # 0.1 K/mm3 (0-0.2); Eosinophils # 0.2 K/mm3 (0.0-0.4); Eosinophils % 1.4 % (0.1-12.0); Hematocrit 41.2 % (37.0-47.0); Hemoglobin 12.6 g/dL (12.2-16.2); Lymphocytes # 1.6 K/mm3 (0.7-4.5); Lymphocytes % 12.2 % (10-50); Mean Corpuscular HGB Conc 30.5 g/dL (31.8-35.4); Mean Corpuscular Hemoglobin 31.7 pg (27.0-31.2); Mean Corpuscular Volume 103.9 fl (81-99); Mean Platelet Volume 8.1 fl (7.4-10.4); Monocytes # 0.5 K/mm3 (0.1-1.0); Monocytes % 3.5 % (1.7-9.3); Neutrophils % 81.9 % (37.0-80.0); Platelet Count 412 K/mm3 (142-424); Red Blood Count 3.97 M/mm3 (4.20-5.40); Red Cell Distribution Width 15.5 % (11.5-17.5); White Blood Count 13.4 K/mm3 (4.8-10.8)
[2021-11-29 16:37] LABS: Chloride 103 mmol/L (98-107); Potassium 4.2 mmoL/L (3.5-5.1); Sodium 134 mmol/L (136-145)
[2021-11-29 16:40] LABS: Alanine Aminotransferase 35 U/L (12-78); Albumin/Globulin Ratio 1.1 (1.1-1.8); Alkaline Phosphatase 123 U/L (38-126); Anion Gap 10.2 mEq/L (5-15); Aspartate Amino Transferase 52 U/L (14-36); Bilirubin,Total 0.6 mg/dl (0.2-1.3); Blood Urea Nitrogen 15 mg/dl (7-17); Calcium 8.6 mg/dl (8.4-10.2); Carbon Dioxide 25 mmol/L (22.0-30.0); Creatinine Clearance Estimated 43 mL/min (50-200); Estimated Glomerular Filt Rate 46 ml/min (>60); GFR (African American) 55 ML/MIN (>60); Globulin 3.7 g/dL (1.3-3.2); Glucose 98 mg/dl (74-100); Total Protein,Serum 7.7 g/dl (6.3-8.2)
--- NOTE | 2021-11-29 16:44 | ECG_ITS ---
APPROVED REPORT Exam: Resting ECG HR:77 bpm ECG Measurements Heart Rate [address] 171 P 54 QRSd 86 QRS 67 QT 372 T -12 QTc 403 Conclusion SINUS RHYTHM Left atrial abnormality NONSPECIFIC T-WAVE ABNORMALITY ABNORMAL ECG UNCONFIRMED REPORT Electronically signed by : Jason Spear MD 12/01/2021 16:07:28
[2021-11-29 16:49] LABS: NT Pro Brain Natriuretic Pep. 6390 pg/mL (0-125)
[2021-11-29 16:52] LABS: Troponin I 0.03 ng/ml (0.00-0.034)
[2021-11-29 17:01] VITALS: BP 113/71; PULSE 74; RESP 17; O2SAT 81
--- NOTE | 2021-11-29 17:17 | HMH.EDGENADL ---
ED Disposition Clinical Impression: Dyspnea on exertion Volume overload Qualifiers: Hypervolemia type: other Qualified Code(s): E87.79 - Other fluid overload Disposition: Home, Self-Care Condition on Discharge: Fair Referrals: Jason Khan MD [Primary Care Provider] - Pool Gore MD [Staff Physician] - - Critical Care Critical Care Time: No Attestation: On 11/29/21, the high probability of a clinically significant, sudden or life threatening deterioration of the following system(s) required my full and direct attention, intervention and personal management. The time I documented below is in addition to time spent performing reported procedures but includes the following listed in this critical care notation. Medical Decision Making - Medical Records Medical records reviewed: Yes: I reviewed the patient's medical records. - Adolph Inquiry Pt receiving controlled substance: No Vital Signs: 11/29/21 16:11 11/29/21 17:01 11/29/21 17:31 Pulse Rate 74 68 Pulse Rate [Radial] 84 Respiratory Rate 28 H 17 18 Blood Pressure 113/71 100/46 L Blood Pressure [Right Arm] 134/65 Blood Pressure Mean 62 Blood Pressure Mean [Right Arm] 88 Blood Pressure Position [Right Arm] Sitting 02 Sat by Pulse Oximetry 88 L 81 L 100 Oxygen Delivery Method Room Air Aerosol Mask - Lab Data Lab results reviewed: Yes: I reviewed the patient's lab results. Lab Results 11/29/21 16:15: SARS-CoV-2 (PCR) Not detected, Influenza A Untype (PCR) Not detected, Influenza Type B (PCR) Not detected 11/29/21 16:16: WBC 13.4 H, RBC 3.97 L, Hgb 12.6, Hct 41.2, MCV 103.9 H, MCH 31.7 H, MCHC 30.5 L, RDW 15.5, Plt Count 412, MPV 8.1, Neut % (Auto) 81.9 H, Lymph % (Auto) 12.2, [place] % (Auto) 3.5, Eos % (Auto) 1.4, Baso % (Auto) 1.0, Neut # (Auto) 11.0 H, Lymph # (Auto) 1.6, [place] # (Auto) 0.5, Eos # (Auto) 0.2, Baso # (Auto) 0.1 11/29/21 16:16: Sodium 134 L, Potassium 4.2, Chloride 103, Carbon Dioxide 25, Anion Gap 10.2, BUN 15, Creatinine 1.20 H, Estimated Creat Clear 43, Estimated GFR 46 L, Est GFR ( Amer) 55 L, Glucose 98, Calcium 8.6, Total Bilirubin 0.6, AST 52 H, ALT 35 D, Alkaline Phosphatase 123, Troponin I 0.03, NT-Pro-B Natriuret Pep 6390 H, Total Protein 7.7, Albumin 4.0, Globulin 3.7 H, Albumin/Globulin Ratio 1.1 11/29/21 16:16: Lactate 1.0 11/29/21 16:16: D-Dimer 0.69 H Result diagrams: 11/29/21 16:16 11/29/21 16:16 Orders (Tests/Meds): ED MEDICATIONS Discontinued Medications Generic Name Dose Route Start Last Admin Trade Name Freq PRN Reason Stop Dose Admin Albuterol/Ipratropium 3 ml 11/29/21 17:30 11/29/21 17:44 Ipratropium/Albuterol 3 Ml Neb IH 11/29/21 17:31 3 ml ONCE ONE Administration Furosemide 40 mg 11/29/21 18:30 11/29/21 18:52 Furosemide 100mg/10ml Vial IV 11/29/21 18:31 40 mg ONCE ONE Administration Iopamidol 70 ml 11/29/21 18:51 11/29/21 18:53 Iopamidol-370 (76%);100ml Bottle IV 11/29/21 18:52 70 ml ONCE ONE Administration Sodium Chloride 50 ml 11/29/21 18:51 11/29/21 18:53 0.9 % Sodium Chloride 50 Ml Vial IV 11/29/21 18:52 50 ml ONCE ONE Administration Sodium Chloride 10 ml 11/29/21 18:51 11/29/21 18:53 Sodium Chloride 0.9% 10ml Syr (Rad Only) IV 11/29/21 18:52 10 ml ONCE ONE Administration ORDERS Category Date Time Status Troponin I Q3H Lab 11/29/21 19:30 Ordered Troponin I Q3H Lab 11/29/21 22:30 Ordered Medical Decision Narrative: Patient is a 61-year-old female with a history of worsening lung function s/p COVID-19 infection is presenting for chief complaint of dyspnea. Differential diagnosis includes, but is not limited to, volume overload, COPD exacerbation, pneumonia, pleural effusion, ACS, PE, other. On initial exam, patient is hemodynamically stable and nontoxic-appearing. She has oxygen saturations of 90% on 2 L on nasal cannula. She was evaluate CBC, CMP, troponin, BNP, D-dimer, EKG and chest x-ray. EKG
[2021-11-29 17:31] VITALS: BP 100/46; PULSE 68; RESP 18; O2SAT 100
[2021-11-29 17:31] LABS: Coronavirus 19, PCR Not Detected (NotDetected); Influenza A, PCR Not Detected (NotDetected); Influenza B, PCR Not Detected (NotDetected)
[2021-11-29 17:48] LABS: D-Dimer 0.69 ug/mL (0.0-0.5)
--- NOTE | 2021-11-29 18:17 | CT_ITS ---
PROCEDURE INFORMATION: Exam: CTA Chest With Contrast Exam date and time: 11/29/2021 6:17 PM Age: 61 years old Clinical indication: Abnormal findings; Other: Elevated d-dimer; Shortness of breath; Additional info: Dyspnea, elevated d dimer TECHNIQUE: Imaging protocol: Computed tomographic angiography of the chest with contrast. 3D rendering (Not supervised by radiologist): MIP and/or 3D reconstructed images were created by the technologist. Radiation optimization: All CT scans at this facility use at least one of these dose optimization techniques: automated exposure control; mA and/or kV adjustment per patient size (includes targeted exams where dose is matched to clinical indication); or iterative reconstruction. Contrast material: ISOVUE 370; Contrast volume: 70 ml; Contrast route: INTRAVENOUS (IV); COMPARISON: CT ANGIO CHEST PE PROTOCOL 10/26/2021 8:23 PM FINDINGS: Pulmonary arteries: No pulmonary embolus. No dissection or aneurysm in the chest. Aorta: Unremarkable. No aortic aneurysm. No aortic dissection. Lungs: There is persistent at this point chronic diffuse ground-glass opacity throughout the lungs without new lobar consolidation. Pleural spaces: Unremarkable. No pneumothorax. No pleural effusion. Heart: Enlarged heart again evident. Lymph nodes: Fairly extensive mediastinal and right hilar lymphadenopathy is not appreciably changed, most likely reactive however sarcoidosis not entirely excluded here. Bones/joints: Unremarkable. No acute fracture. Soft tissues: Unremarkable. Other findings: Old granulomatous disease. IMPRESSION: 1. No pulmonary embolus. No dissection or aneurysm in the chest. 2. There is persistent, at this point chronic diffuse ground-glass opacity throughout the lungs without new lobar consolidation. 3. Fairly extensive mediastinal and right hilar lymphadenopathy is not appreciably changed, most likely reactive however sarcoidosis not entirely excluded here.
[2021-11-29 19:50] VITALS: BP 107/60; PULSE 64; RESP 18; TEMP 36.7; O2SAT 98
== END 2021-11-29 21:03 | disposition home or self-care (01) ==
PROVIDERS: Emergency Provider Emergency Medicine; PCP Family Medicine
DX: R06.00 Dyspnea, unspecified (principal); E87.79 Other fluid overload; I25.10 Atherosclerotic heart disease of native coronary artery without angina pectoris; F41.8 Other specified anxiety disorders; I10 Essential (primary) hypertension; E78.5 Hyperlipidemia, unspecified; K21.9 Gastro-esophageal reflux disease without esophagitis; E03.9 Hypothyroidism, unspecified; F17.210 Nicotine dependence, cigarettes, uncomplicated; Z88.0 Allergy status to penicillin; Z88.2 Allergy status to sulfonamides
CPT/HCPCS: 71046; 71275; 80053; 83605; 83880; 84484; 85025; 85378; 93005; 96374; 96375; 99284; C9803; Q9967; U0003; U0005

== ENCOUNTER → 2021-12-04 15:32 | Outpatient (CLI) | payer OTHER, SELFPAY ==
[2021-12-04 16:11] LABS: Basophils # 0.1 K/mm3 (0-0.2); Basophils % 1.2 % (0.1-2.0); Eosinophils # 0.1 K/mm3 (0.0-0.4); Eosinophils % 1.6 % (0.1-12.0); Hemoglobin 14.2 g/dL (12.2-16.2); Lymphocytes % 11.6 % (10-50); Mean Corpuscular HGB Conc 30.2 g/dL (31.8-35.4); Mean Corpuscular Hemoglobin 32.4 pg (27.0-31.2); Mean Platelet Volume 8.3 fl (7.4-10.4); Monocytes # 0.4 K/mm3 (0.1-1.0); Monocytes % 4.3 % (1.7-9.3); Neutrophils # 7.4 K/mm3 (1.8-7.8); Neutrophils % 81.4 % (37.0-80.0); Platelet Count 421 K/mm3 (142-424); Red Blood Count 4.39 M/mm3 (4.20-5.40); Red Cell Distribution Width 15.9 % (11.5-17.5)
[2021-12-04 16:41] LABS: Anion Gap 15.3 mEq/L (5-15); Blood Urea Nitrogen 16 mg/dl (7-17); Calcium 8.9 mg/dl (8.4-10.2); Carbon Dioxide 24 mmol/L (22.0-30.0); Chloride 104 mmol/L (98-107); Estimated Glomerular Filt Rate 42 ml/min (>60); GFR (African American) 50 ML/MIN (>60); Glucose 120 mg/dl (74-100); Potassium 4.3 mmoL/L (3.5-5.1); Sodium 139 mmol/L (136-145)
[2021-12-04 16:46] LABS: C-Reactive Protein 72.7 mg/L (0-4)
== END ==
PROVIDERS: Visit Provider Internal Medicine Pulmonary Disease
DX: R06.00 Dyspnea, unspecified (principal); I50.9 Heart failure, unspecified; J45.909 Unspecified asthma, uncomplicated
CPT/HCPCS: 80048; 85025; 86140

== ENCOUNTER → 2022-01-03 08:09 | Outpatient (CLI) | payer OTHER, SELFPAY | PROVIDERS: PCP Nurse Practitioner Family; Visit Provider Internal Medicine Pulmonary Disease | DX: R06.02 Shortness of breath (principal); J44.9 Chronic obstructive pulmonary disease, unspecified | CPT/HCPCS: 94060; 94618; 94726; 94729 ==

== ENCOUNTER 2022-01-15 16:24 | Emergency (ER) | payer OTHER, SELFPAY ==
[2022-01-15 16:22] VITALS: BP 135/60; PULSE 96; RESP 18; TEMP 37.2; O2SAT 72; BMI 40.6
--- NOTE | 2022-01-15 16:32 | ECG_ITS ---
APPROVED REPORT Exam: Resting ECG HR:93 bpm ECG Measurements Heart Rate 93 AXES [place] 156 P 58 QRSd 94 QRS 91 QT 331 T 8 QTc 382 Conclusion SINUS RHYTHM BORDERLINE RIGHT AXIS DEVIATION [QRS AXIS > 90] BORDERLINE ECG UNCONFIRMED REPORT Electronically signed by : Jason Spear MD 01/17/2022 10:12:56
--- NOTE | 2022-01-15 16:33 | XR_ITS ---
PROCEDURE INFORMATION: Exam: XR Chest Exam date and time: 01/15/2022 4:47 PM Age: 61 years old Clinical indication: Cough TECHNIQUE: Imaging protocol: XR of the chest. Views: 1 view. COMPARISON: CR XR CHEST 2V 11/29/2021 4:17 PM FINDINGS: Lungs: Patchy bilateral interstitial and airspace opacities are demonstrated. Pleural spaces: Unremarkable. No pleural effusion. No pneumothorax. Heart/Mediastinum: There is exaggeration of cardiomediastinal silhouette secondary to positioning. Bones/joints: Unremarkable. IMPRESSION: Patchy bilateral interstitial and alveolar opacities. Findings compatible with pneumonia.
--- NOTE | 2022-01-15 16:51 | PC.NURSE ---
respiratory at bedside
[2022-01-15 17:00] VITALS: BP 122/72; PULSE 94; RESP 24; O2SAT 94
--- NOTE | 2022-01-15 17:09 | PC.NURSE ---
Lab has been notified to come draw labs on patient
--- NOTE | 2022-01-15 17:19 | PC.NURSE ---
Lab at bedside
[2022-01-15 17:24] LABS: ABG Base Excess -2.1 mmol/L (-2.4-2.3); ABG HCO3 23.9 mmhg (22.0-26.0); ABG Oxygen Saturation 97 % (90-100); ABG PCO2 47.3 mmhg (35.0-45.0); ABG PH 7.32 mmol/L (7.35-7.45); ABG PO2 86.2 mmhg (80-100); ABG TCO2 25.4 mmhg (23-27)
[2022-01-15 17:27] LABS: Source R BRACHIAL
[2022-01-15 17:48] LABS: Coronavirus 19, PCR Not Detected (NotDetected); Influenza A, PCR Not Detected (NotDetected); Influenza B, PCR Not Detected (NotDetected)
[2022-01-15 17:49] LABS: Basophils # 0.1 K/mm3 (0-0.2); Eosinophils # 0.1 K/mm3 (0.0-0.4); Eosinophils % 0.9 % (0.1-12.0); Hematocrit 47.6 % (37.0-47.0); Hemoglobin 14.3 g/dL (12.2-16.2); Lymphocytes # 0.6 K/mm3 (0.7-4.5); Mean Corpuscular Hemoglobin 31.7 pg (27.0-31.2); Mean Corpuscular Volume 105.7 fl (81-99); Monocytes # 0.5 K/mm3 (0.1-1.0); Monocytes % 3.3 % (1.7-9.3); Neutrophils # 12.7 K/mm3 (1.8-7.8); Neutrophils % 90.7 % (37.0-80.0); Platelet Count 269 K/mm3 (142-424); Red Cell Distribution Width 16.5 % (11.5-17.5)
[2022-01-15 18:02] LABS: MANUAL DIFFERENTIAL MANUAL DIFFERENTIAL (MANUAL DIFF)
--- NOTE | 2022-01-15 18:19 | PC.NURSE ---
ED MD at to do an ultrasound IV
--- NOTE | 2022-01-15 18:24 | HMH.EDGENADL ---
ED Disposition Clinical Impression: COPD exacerbation Pneumonia Qualifiers: Pneumonia type: due to unspecified organism Laterality: bilateral Lung location: lower lobe of lung Qualified Code(s): J18.9 - Pneumonia, unspecified organism Disposition: Home, Self-Care Condition on Discharge: Good Instructions: Pneumonia-Adult Prescriptions: Azithromycin [Zithromax 250mg tab] 250 mg PO DIRECTED #6 tab Transmission Status: Pending to [facility] Referrals: Provider,Referral, [Primary Care Provider] - - Critical Care Critical Care Time: No Attestation: On 01/15/22, the high probability of a clinically significant, sudden or life threatening deterioration of the following system(s) required my full and direct attention, intervention and personal management. The time I documented below is in addition to time spent performing reported procedures but includes the following listed in this critical care notation. Medical Decision Making - Medical Records Medical records reviewed: Yes: I reviewed the patient's medical records. - Adolph Inquiry Pt receiving controlled substance: No Vital Signs: 01/15/22 16:22 01/15/22 17:00 01/15/22 18:42 Temperature 99.0 F Temperature Source Oral Pulse Rate 94 H 78 Pulse Rate [Right Radial] 96 H Respiratory Rate 18 24 20 Blood Pressure 122/72 119/60 Blood Pressure [Right Arm] 135/60 Blood Pressure Mean [Right Arm] 85 Blood Pressure Source [Right Arm] Automatic Cuff Blood Pressure Position [Right Arm] Sitting 02 Sat by Pulse Oximetry 72 L 94 L 90 L Oxygen Delivery Method Room Air Nasal Cannula Oxygen Flow Rate (LPM) 2 01/15/22 19:00 Temperature Temperature Source Pulse Rate 73 Pulse Rate [Right Radial] Respiratory Rate Blood Pressure 119/59 L Blood Pressure [Right Arm] Blood Pressure Mean [Right Arm] Blood Pressure Source [Right Arm] Blood Pressure Position [Right Arm] 02 Sat by Pulse Oximetry 99 Oxygen Delivery Method Oxygen Flow Rate (LPM) - Lab Data Lab Results 01/15/22 16:33: Specimen Source R brachial, O2 % 5lpm, ABG pH 7.32 L, ABG pCO2 47.3 H, ABG pO2 86.2, ABG HCO3 23.9, ABG Total CO2 25.4, ABG O2 Saturation 97, ABG Base Excess -2.1 01/15/22 17:40: WBC 14.0 H, RBC 4.50, Hgb 14.3, Hct 47.6 H, MCV 105.7 H, MCH 31.7 H, MCHC 30.0 L, RDW 16.5, Plt Count 269, MPV 8.0, Neut % (Auto) 90.7 H, Lymph % (Auto) 4.0 L, [place] % (Auto) 3.3, Eos % (Auto) 0.9, Baso % (Auto) 1.0, Neut # (Auto) 12.7 H, Lymph # (Auto) 0.6 L, [place] # (Auto) 0.5, Eos # (Auto) 0.1, Baso # (Auto) 0.1, Total Counted 100, Neutrophils % (Manual) 93 H, Lymphocytes % (Manual) 3 L, Monocytes % (Manual) 4, Platelet Estimate Normal, Anisocytosis 2+, Macrocytosis 2+ 01/15/22 17:40: Sodium 139, Potassium 4.4, Chloride 104, Carbon Dioxide 29, Anion Gap 10.4, BUN 22 H, Creatinine 0.90, Estimated Creat Clear 107, Estimated GFR 64, Est GFR ( Amer) 77, Glucose 108 H, Calcium 8.5, Total Bilirubin 1.0, AST 196 H, ALT 115 H, Alkaline Phosphatase 183 H, Total Protein 7.1, Albumin 4.1, Globulin 3.0, Albumin/Globulin Ratio 1.4 01/15/22 17:40: SARS-CoV-2 (PCR) Not detected, Influenza A Untype (PCR) Not detected, Influenza Type B (PCR) Not detected 01/15/22 18:30: Urine Color Dk yellow, Urine Appearance Clear, Urine pH 6.5, Ur Specific [place] 1.020, Urine Protein Trace, Urine Glucose (UA) Negative, Urine Ketones Negative, Urine Blood Negative, Urine Nitrate Negative, Urine Bilirubin Negative, Urine Urobilinogen 1.0, Ur Leukocyte Esterase Negative, Urine RBC Occasional, Urine WBC 5-10, Ur Squamous Epith Cells 5-10, Urine Bacteria 1+ 01/15/22 18:30: Urine Opiates Screen Negative, Urine Methadone Screen Negative, Ur Barbituates Screen Negative, Ur Phencyclidine Scrn Negative, Ur Amphetamines Screen Negative, U Benzodiazepines Scrn Negative, Urine Cocaine Screen Negative, U Marijuana (THC) Screen Negative Result diagrams: 01/15/22 17:40 04/18/22 17:40 Orders (Tests/Meds): ED
[2022-01-15 18:29] LABS: Lymphocytes % 3 % (10-50); Monocytes % 4 % (2-9); Neutrophils % 93 % (42-76); Platelet Estimate Normal; Total Cells Counted 100
[2022-01-15 18:30] LABS: Anisocytosis 2+; Macrocytosis 2+
--- NOTE | 2022-01-15 18:35 | PC.NURSE ---
Pt ambulated to bathroom
--- NOTE | 2022-01-15 18:38 | PC.NURSE ---
patient back from restroom to ED RM 7 without complications; family at BS
[2022-01-15 18:42] VITALS: BP 119/60; PULSE 78; RESP 20; O2SAT 90
[2022-01-15 18:47] LABS: Microscopic, Urine URINE MICROSCOPIC (MICROSCOPIC)
[2022-01-15 18:51] LABS: Appearance,Urine CLEAR (Clear); Bilirubin,Urine Negative (Negative); Blood, Urine Negative (Negative); Color,Urine DK YELLOW (Yellow); Glucose,Urine (UA) Negative (Negative); Ketones,Urine Negative (Negative); Leukocyte Esterase,Urine Negative (Negative); Nitrate,Urine Negative (Negative); PH,Urine 6.5 (5.0-8.5); Protein,Urine TRACE (Negative)
[2022-01-15 18:58] LABS: Bacteria,Urine 1+ /lpf; RBC,Urine Occasional #/hpf (0-3)
[2022-01-15 19:00] VITALS: BP 119/59; PULSE 73; O2SAT 99
[2022-01-15 19:03] LABS: Amphetamine/Metha Screen,Urine Negative ng/ml (<1000); Benzodiazepines Screen,Urine Negative ng/ml (<200)
[2022-01-15 19:04] LABS: Barbiturates Screen,Urine Negative ng/ml (<200)
[2022-01-15 19:05] LABS: Cannabinoid Screen,Urine Negative ng/ml (<50); Cocaine Screen,Urine Negative ng/ml (<300)
[2022-01-15 19:06] LABS: Methadone Screen,Urine Negative ng/ml (<300); Opiate Screen,Urine Negative ng/ml (<300)
[2022-01-15 19:07] LABS: Phencyclidine Screen,Urine Negative ng/ml (<25)
[2022-01-15 19:08] LABS: Alanine Aminotransferase 115 U/L (12-78); Albumin Level 4.1 g/dl (3.5-5.0); Albumin/Globulin Ratio 1.4 (1.1-1.8); Alkaline Phosphatase 183 U/L (38-126); Anion Gap 10.4 mEq/L (5-15); Aspartate Amino Transferase 196 U/L (14-36); Blood Urea Nitrogen 22 mg/dl (7-17); Calcium 8.5 mg/dl (8.4-10.2); Carbon Dioxide 29 mmol/L (22.0-30.0); Chloride 104 mmol/L (98-107); Creatinine Clearance Estimated 107 mL/min (50-200); Estimated Glomerular Filt Rate 64 ml/min (>60); GFR (African American) 77 ML/MIN (>60); Glucose 108 mg/dl (74-100); Potassium 4.4 mmoL/L (3.5-5.1); Sodium 139 mmol/L (136-145); Total Protein,Serum 7.1 g/dl (6.3-8.2)
[2022-01-15 19:21] LABS: NT Pro Brain Natriuretic Pep. 1390 pg/mL (0-125); Troponin I 0.05 ng/ml (0.00-0.034)
[2022-01-15 19:28] VITALS: BP 120/74; PULSE 70; RESP 22; TEMP 37.1; O2SAT 97
== END 2022-01-15 19:36 | disposition home or self-care (01) ==
PROVIDERS: Emergency Provider Emergency Medicine
DX: J44.1 Chronic obstructive pulmonary disease with (acute) exacerbation; D64.9 Anemia, unspecified; R53.81 Other malaise; Z20.822 Contact with and (suspected) exposure to COVID-19; I11.0 Hypertensive heart disease with heart failure; I50.9 Heart failure, unspecified; I25.10 Atherosclerotic heart disease of native coronary artery without angina pectoris; I25.2 Old myocardial infarction; E78.5 Hyperlipidemia, unspecified; E03.9 Hypothyroidism, unspecified; K76.9 Liver disease, unspecified; M19.90 Unspecified osteoarthritis, unspecified site; M79.7 Fibromyalgia; G43.909 Migraine, unspecified, not intractable, without status migrainosus; G47.30 Sleep apnea, unspecified; J98.4 Other disorders of lung; F32.A Depression, unspecified; F41.9 Anxiety disorder, unspecified; Z79.51 Long term (current) use of inhaled steroids; Z79.52 Long term (current) use of systemic steroids; Z99.81 Dependence on supplemental oxygen; Z79.899 Other long term (current) drug therapy; Z88.0 Allergy status to penicillin; Z88.1 Allergy status to other antibiotic agents; Z88.2 Allergy status to sulfonamides; Z88.3 Allergy status to other anti-infective agents; Z88.8 Allergy status to other drugs, medicaments and biological substances; Z87.891 Personal history of nicotine dependence; Z80.9 Family history of malignant neoplasm, unspecified; Z81.1 Family history of alcohol abuse and dependence
CPT/HCPCS: 71045; 80053; 80305; 81001; 82803; 83880; 84484; 85007; 85025; 93005; 96374; 99285; C9803; U0003; U0005

== ENCOUNTER → 2022-02-03 12:11 | Outpatient (CLI) | payer OTHER, SELFPAY | PROVIDERS: Visit Provider Internal Medicine Pulmonary Disease | DX: Z01.812 Encounter for preprocedural laboratory examination (principal); Z11.52 Encounter for screening for COVID-19; R06.02 Shortness of breath | CPT/HCPCS: C9803; U0003; U0005 ==

== ENCOUNTER 2022-02-05 11:17 | Day surgery (SDC) | payer OTHER, SELFPAY ==
--- NOTE | 2022-02-01 13:29 | SUR.PREOP ---
No answer @ this time for pre-op phone call. Left message w/ call back #.
--- NOTE | 2022-02-02 12:12 | SUR.PREOP ---
Attempted pre-op phone call again @ this time, no answer. Voicemail left once again for patient w/ call back # and instructions for pre-op testing.
[2022-02-05] VITALS (10 sets, daily range): BP systolic 116–152; BP diastolic 54–93; PULSE 60–80; RESP 14–18; TEMP 36.2–36.7; O2SAT 92–96; BMI 43.2
--- NOTE | 2022-02-05 12:21 | P.PN_ITS ---
[facility] Anesthesia Checklist - Patient Identification Patient Identification: Arm Band - Structural Data Admitted From: Home Planned Operative Procedure/s: Bronchoscopy, EBUS Consent for Planned Operative Procedure(s) Verified: Yes Verified Documents: Surgical Consent, History and Physical - NPO Status Verified Time NPO: 00:00 - Additional verifications Anesthesia Reactions: No (nausea) Hx Blood Transfusions: No Blood Transfusion Reaction: No - Airway Assessment C-Spine Mobility Assessed: Yes (mp2) TMJ Mobility Assessed: Yes Dentition: Good Dentition (upper dentures removed. Lower intact) - Neurological Assessment Level of Consciousness: Awake, Alert - Anesthesia Plan Anesthesia Risk discussed: Yes Anesthesia Plan: Verified ASA Class: III Anesthesia Type: General [facility] History I have reviewed the patient's past medical history: Yes Medical History: Reports:: Anxiety, Atherosclerotic Heart Disease, Congestive Heart Failure, Chronic Obstructive Pulmonary Disease (COPD), Coronary Artery Disease, Depression, Gall Bladder Disease, Gastroesophageal Reflux Disease(GERD), Hyperlipidemia, Hypertension, Lung Disease, Migraine, MRSA (ankle, lungs), Myocardial Infarction Denies:: Cancer, Diabetes Mellitus Type 1, Diabetes Mellitus Type 2, Internal Pacemaker, Seizures *Have you ever received a pneumonia vaccine?: Yes *Have you received a flu vaccine this season?: Yes Other Medical History: Reports: Anemia, Arthritis, Fibromyalgia, Hypothyroidism, Liver Disease, Sinus Problems, Thyroid Disease, Other. Denies: Blood Transfusion Reaction Anesthesia experience/problems:: nac Laterality Cases: Right: Other, Bilateral: Carpal Tunnel Release, Tonsillectomy Other Surgeries: Yes: Angiogram, Angioplasty, Appendectomy, Cardiac Catheterization, Cholecystectomy, Colonoscopy, Dilation and Curettage, EGD, Hysterectomy-Total, Other. No: Pacemaker Amputation: No Fractures: Yes (right ankle/tibia) - *Social History Last grade of school completed: Some college Smoking Status: Current every day smoker Tobacco Type: cigarettes # Packs/Day (cigarettes): 1 #Yrs smoked (if former smoker): 1 Alcohol Intake: never Alcohol Intake Frequency:: holidays/special occasions only Substance Use Type: opiates *Occupational Status:: employed Housing: house Household Members: spouse *Travel in the last 8 weeks: None - Psychiatric History Pschychiatric History:: Reports:: Anxiety, Depression Family Hx:: Cancer
--- NOTE | 2022-02-05 14:15 | FL_ITS ---
FINAL REPORT CLINICAL HISTORY: Bronchoscopy - biopsy taken- 1.45 mins of fluro time and 62.31 mGy FINDINGS: FLUOROSCOPY IN THE OR HISTORY: bronchoscopy FINDINGS: Fluoroscopy was provided by the radiology department for the clinical service. 2 intraoperative films were obtained during the procedure. Fluoroscopy time: 1 minute 45 seconds. IMPRESSION: Intraoperative fluoroscopy Films reviewed , interpreted and dictated by Dr. Camara Transcribed by Steven Harrison PA-C. Reviewed, Interpreted and Dictated by Matias Camara III, MD Transcribed by ALECIA Barnett Authenticated by Matias Camara III, MD on 02/07/2022 07:35:09 AM [facility]
--- NOTE | 2022-02-05 14:22 | P.PN_ITS ---
[facility] Anesthesia Record Part I Intake, IV Amount: 700 Estimated blood loss (mL): 0 Urine output (mL): 0 Blood Pressure: 128/78 SaO2: 93 Pulse Rate: 77 Respiratory Rate: 16 Temperature: 97.1 F Patient is:: Drowsy, Stable Stable to PACU at:: 14:20
--- NOTE | 2022-02-05 14:44 | PC.NURSE ---
at bedside, RN informed MD that pt O2 saturation ranges in the low 80% when on room air, states that is her preexisting condition, states that pt can be d/c home from postop.
--- NOTE | 2022-02-05 15:21 | HMH.BRONCH ---
- Procedure: Date: 02/05/22 Patient Date of :: 1960 Procedure Performed:: Bronchoscopy airway examination, transbronchial biopsy and EBUS FNA Indications:: Nonspecific interstitial pneumonia, mediastinal and hilar lymphadenopathy Performing Provider:: Eliecer Meza MD Referring Provider:: Dr: Bhavna Hammond APRN Sedation:: General anesthesia Procedure:: Bronchoscopy airway examination, transbronchial biopsy and EBUS FNA: Clean EBUS bronchoscopy was advanced the ET tube lymph node surveillance was performed, patient noted to have lymphadenopathy at stations 10 R 10 L and 7. FNA samples were performed at each stations and samples were sent for cytopathology examination along with flow cytometry and AFB fungal bacterial stain and cultures. Pathologist at bedside did not show any evidence of malignancy. No obvious evidence of granuloma also noted. EBUS bronchoscopy was retracted and and a clean diagnostic bronchoscopy was advanced. Airways were examined up to subsegmental bronchi no obvious evidence of bleeding or hemoptysis noted. No mucous plugging noted. Bronchoalveolar lavage was performed in the right middle lobe lateral segment. A total of 60 cc of normal saline was instilled with return of 60 cc back. No evidence of diffuse alveolar hemorrhage noted. BAL sample was sent for bacterial fungal AFB stain culture along with cytopathology. Total of 7 transbronchial biopsies were performed, 1 each was sent in normal saline for AFB fungal gram stain culture sensitivity and the remaining samples were sent in CytoLyt for cytological examination. Patient tolerated the procedure well. Findings:: Please see the procedure note Recommendations:: Follow in clinic in 7 days. Complications:: None Estimated blood obtained (mL): 10
[2022-02-06 07:51] VITALS: BP 131/74; PULSE 65; TEMP 36.2
--- NOTE | 2022-02-06 07:51 | P.PN_ITS ---
[facility] Anesthesia Record Part II Discharge Time: 14:50 Destination: Surgical Day Care (OP Surgery) PACU nurse assessment reviewed?: Yes Patient Condition:: Good Anesthesia Complications:: None Swallowing reflex intact?: Yes Cyanosis?: No Blood Pressure: 131/74 Pulse Rate: 65 Temperature: 97.1 F Mental Status: Alert & Oriented Pain level:: 0 Nausea and/or vomitting:: None Intake, IV Amount: 0
== END 2022-02-05 15:25 | disposition home or self-care (01) ==
LOC: OR 11:18
PROVIDERS: PCP Family Medicine; Visit Provider Internal Medicine Pulmonary Disease
PROC: (CPT 31624; principal; 2022-02-05 12:30)
DX: J84.9 Interstitial pulmonary disease, unspecified (principal); J96.11 Chronic respiratory failure with hypoxia; R59.0 Localized enlarged lymph nodes; Z99.81 Dependence on supplemental oxygen; I25.10 Atherosclerotic heart disease of native coronary artery without angina pectoris; J44.9 Chronic obstructive pulmonary disease, unspecified; I11.0 Hypertensive heart disease with heart failure; I50.9 Heart failure, unspecified; K21.9 Gastro-esophageal reflux disease without esophagitis; Z79.899 Other long term (current) drug therapy; Z87.891 Personal history of nicotine dependence
CPT/HCPCS: 31624; 31653; 76000; 87070; 87102; 87116; 87186; 87205; 87206; 89051; J2405

== ENCOUNTER → 2022-02-12 09:56 | Outpatient (CLI) | payer OTHER, SELFPAY ==
--- NOTE | 2022-02-12 10:01 | XR_ITS ---
FINAL REPORT CLINICAL HISTORY: SOB POST LUNG BIOPSY 2 WEEKS AGO SMOKER HX OF BREAST BIOPSY ON RT COMPARISON: January 15, 2022 FINDINGS: Two views of the chest were obtained. The heart size and pulmonary vascularity are within normal limits. The mediastinum is normal. No acute pulmonary abnormality is identified. There is a small to moderate right apical pneumothorax with 15 mm of pleural separation. There are persistent but improved bilateral pulmonary opacities that could represent edema or pneumonia. The bony thorax is intact. IMPRESSION: Small to moderate right apical pneumothorax. Persistent but improved bilateral edema or pneumonia. Reviewed, Interpreted and Dictated by Matias Camara III, MD Transcribed by Guillaume Pereira Authenticated by Matias Camara III, MD on 02/12/2022 11:19:13 AM [facility]
[2022-02-12 10:33] LABS: Alanine Aminotransferase 92 U/L (12-78); Albumin Level 4.3 g/dl (3.5-5.0); Albumin/Globulin Ratio 1.3 (1.1-1.8); Alkaline Phosphatase 107 U/L (38-126); Anion Gap 12.8 mEq/L (5-15); Aspartate Amino Transferase 79 U/L (14-36); Blood Urea Nitrogen 34 mg/dl (7-17); Calcium 8.8 mg/dl (8.4-10.2); Carbon Dioxide 33 mmol/L (22.0-30.0); Chloride 92 mmol/L (98-107); Estimated Glomerular Filt Rate 29 ml/min (>60); GFR (African American) 35 ML/MIN (>60); Globulin 3.3 g/dL (1.3-3.2); Glucose 142 mg/dl (74-100); Potassium 3.8 mmoL/L (3.5-5.1); Sodium 134 mmol/L (136-145); Total Protein,Serum 7.6 g/dl (6.3-8.2)
[2022-02-12 10:35] LABS: Bilirubin,Total < 0.1 mg/dl (0.2-1.3)
[2022-02-12 10:37] LABS: Basophils # 0.1 K/mm3 (0-0.2); Basophils % 0.7 % (0.1-2.0); Eosinophils # 0.1 K/mm3 (0.0-0.4); Eosinophils % 0.5 % (0.1-12.0); Hematocrit 46.4 % (37.0-47.0); Hemoglobin 14.6 g/dL (12.2-16.2); Lymphocytes # 1.1 K/mm3 (0.7-4.5); Lymphocytes % 9.9 % (10-50); Mean Corpuscular HGB Conc 31.5 g/dL (31.8-35.4); Mean Corpuscular Hemoglobin 32.7 pg (27.0-31.2); Mean Corpuscular Volume 103.5 fl (81-99); Mean Platelet Volume 8.1 fl (7.4-10.4); Monocytes # 0.3 K/mm3 (0.1-1.0); Monocytes % 2.2 % (1.7-9.3); Neutrophils # 9.5 K/mm3 (1.8-7.8); Neutrophils % 86.6 % (37.0-80.0); Platelet Count 316 K/mm3 (142-424); Red Blood Count 4.48 M/mm3 (4.20-5.40); White Blood Count 10.9 K/mm3 (4.8-10.8)
[2022-02-12 10:40] LABS: MANUAL DIFFERENTIAL MANUAL DIFFERENTIAL (MANUAL DIFF)
[2022-02-12 10:58] LABS: Lymphocytes % 12 % (10-50); Monocytes % 5 % (2-9); Neutrophils % 83 % (42-76); Total Cells Counted 100
[2022-02-12 10:59] LABS: Anisocytosis 1+; Macrocytosis 1+; Platelet Estimate Normal; Poikilocytosis 1+
== END ==
PROVIDERS: PCP Family Medicine; Visit Provider Internal Medicine Pulmonary Disease
DX: R06.02 Shortness of breath (principal); J45.909 Unspecified asthma, uncomplicated
CPT/HCPCS: 36415; 71046; 80053; 85007; 85025